=== PATIENT | female | born 1985 | race African-American/Black ===

== ENCOUNTER 2016-09-04 05:34 | Emergency (ER) | payer SELFPAY ==
[2016-09-04] MEDS ORDERED: ACETAMINOPHEN 325 MG TABLET PO ONE (05:42)
[2016-09-04 05:53] VITALS: BP 133/104
--- NOTE | 2016-09-04 05:54 | ER Document Report ---
ED General - General Chief Complaint: Blood Pressure Problem Stated Complaint: BLOOD PRESSURE PROBLEMS Mode of Arrival: Medic Information source: Patient Notes: 30-year-old female history of anxiety hypertension ADHD presents with concerns for headache this been ongoing for 2 days, decreased appetite and high blood pressure. Patient notes she's not been taking her medications for a couple days , states she is unsure if her lisinopril is the right medication since she had to put in a different bottle because she was banned from [employer] Patient notes that even though she has not had much of an appetite she would like to eat the food that was provided to her TRAVEL OUTSIDE OF THE [place] IN LAST 30 DAYS: No - HPI Onset: Other - 2 day duration Onset/Duration: Persistent Quality of pain: No pain Severity: Mild Pain Level: 1 Associated symptoms: Headache Exacerbated by: Denies Relieved by: Denies Similar symptoms previously: Yes Recently seen / treated by doctor: Yes - Related Data Allergies/Adverse Reactions: ketorolac tromethamine [From Toradol] Allergy (Verified 06/17/16 21:40) meperidine HCl [From Demerol] Allergy (Verified 06/17/16 21:40) metoclopramide HCl [From Reglan] Allergy (Verified 06/17/16 21:40) morphine [Morphine] Allergy (Verified 06/17/16 21:40) tramadol [Tramadol] Allergy (Verified 06/17/16 21:40) Hives ondansetron HCl [From Zofran] Adverse Reaction (Verified 06/17/16 21:40) VOMITING Past Medical History - Social History Smoking Status: Current Some Day Smoker Cigarette use (# per day): Yes Chew tobacco use (# tins/day): No Smoking Education Provided: No Family History: Reviewed & Not Pertinent - Past Medical History Cardiac Medical History: Reports: Hx Hypertension Renal/ Medical History: Denies: Hx Peritoneal Dialysis Psychiatric Medical History: Reports: Hx Anxiety, Hx Attention Deficit Hyperactivity Disorder, Hx Post Traumatic Stress Disorder Past Surgical History: Reports: Hx Abdominal Surgery - LAPROSCOPY, Hx Gynecologic Surgery - d&c, lap - Immunizations Immunizations up to date: Yes Hx Diphtheria, Pertussis, Tetanus Vaccination: Yes - 2010 Review of Systems - Review of Systems Notes: REVIEW OF SYSTEMS: CONSTITUTIONAL : Denies fever, chills, or sweats. Denies recent illness. Admits to decreased appetite EENT: Denies eye, ear, throat, or mouth pain or symptoms. Denies nasal or sinus congestion or discharge. Denies throat, tongue, or mouth swelling or difficulty swallowing. CARDIOVASCULAR: Denies chest pain. Denies palpitations or racing or irregular heart beat. Denies ankle edema. RESPIRATORY: Denies cough, cold, or chest congestion. Denies shortness of breath, difficulty breathing, or wheezing. GASTROINTESTINAL: Denies abdominal pain or distention. Denies nausea, vomiting , or diarrhea. Denies blood in vomitus, stools, or per rectum. Denies black, tarry stools. Denies constipation. GENITOURINARY: Denies difficulty urinating, painful urination, burning, frequency, blood in urine, or discharge. FEMALE GENITOURINARY: Denies vaginal bleeding, heavy or abnormal periods, irregular periods. Denies vaginal discharge or odor. MUSCULOSKELETAL: Denies back or neck pain or stiffness. Denies joint pain or swelling. SKIN: Denies rash, lesions or sores. HEMATOLOGIC : Denies easy bruising or bleeding. LYMPHATIC: Denies swollen, enlarged glands. NEUROLOGICAL: Admits headache PSYCHIATRIC: Admits to anxiety denies any suicidal homicidal ideations ALL OTHER SYSTEMS REVIEWED AND NEGATIVE. Dictation was performed using [employer] voice recognition software PHYSICAL EXAMINATION: GENERAL: Well-appearing, well-nourished and in no acute distress. HEAD: Atraumatic, normocephalic. EYES: Pupils equal round and reactive to light, extraocular movements intact, conjunctiva are normal. ENT: Nares patent, oropharynx clear without exudates. Moist mucous membranes. NECK: Normal range of motion, supple without lymphadenopathy LUNGS: Breath sounds clear to auscultation bilaterally and equal. No wheezes rales or rhonchi. HEART: Regular rate and rhythm without murmurs ABDOMEN: Soft, nontender, nondistended abdomen. No guarding, no rebound. No masses appreciated. Female : deferred Musculoskeletal: Normal range of motion, no pitting or edema. No cyanosis. NEUROLOGICAL: Cranial nerves grossly intact. Normal speech, normal gait. Normal sensory, motor exams finger to nose [id number] are normal PSYCH: Patient appears anxious but easily consolable SKIN: Warm, Dry, normal turgor, no rashes or lesions noted. Course - Re-evaluation Re-evalutation: 09/04/16 05:52 Neurological examination notes no significant abnormality, patient was given Tylenol which she is very appreciative of. Patient was given fluids which she is very appreciative of. I checked all her medications and in fact her lisinopril 40 mg tablets are in a clonazepam bottle. I have re labeled her medication Otherwise patient appears to be stable. I spent time consoling the patient I will allow the patient to take her lisinopril and cleansed and expect discharge shortly After performing a Medical Screening Examination, I estimate there is LOW risk for ACUTE CORONARY SYNDROME, RESPIRATORY FAILURE, SEPSIS OR MENINGITIS, thus I consider the discharge disposition reasonable. The patient and I have discussed the diagnosis and risks, and we agree with discharging home with close follow- up. We also discussed returning to the Emergency Department immediately if new or worsening symptoms occur. We have discussed the symptoms which are most concerning (e.g., changing or worsening pain, trouble swallowing or breathing, neck stiffness, fever) that necessitate immediate return. Discharge - Discharge Clinical Impression: Headache Qualifiers: Headache type: unspecified Headache chronicity pattern: acute headache Intractability: not intractable Qualified Code(s): R51 - Headache HTN (hypertension) Qualifiers: Hypertension type: essential hypertension Qualified Code(s): I10 - Essential ( primary) hypertension Condition: Stable Disposition: HOME, SELF-CARE Instructions: High Blood Pressure ([facility]) Additional Instructions: Please follow-up with your primary care physician for reevaluation or return immediately if there are any other concerns
== END 2016-09-04 06:12 | disposition home or self-care (01) ==
LOC: ER 05:34
DX: R51 Headache (principal); I10 Essential (primary) hypertension; F17.210 Nicotine dependence, cigarettes, uncomplicated
CPT/HCPCS: 99283

== ENCOUNTER 2016-09-08 22:33 | Emergency (ER) | payer SELFPAY ==
[2016-09-08 22:57] VITALS: BP 136/97
[2016-09-09] MEDS ORDERED: DOCUSATE SODIUM 100 MG CAPSULE PO ONE (01:15)
[2016-09-09] MEDS ORDERED: CLONAZEPAM 1 MG TABLET PO ONE (01:15)
--- NOTE | 2016-09-09 01:25 | ER Document Report ---
ED General - General Chief Complaint: High Blood Pressure Stated Complaint: POSSIBLE BLOOD PRESSURE ISSUES Mode of Arrival: Ambulatory Information source: Patient Notes: Pt is a 30-year-old female with a history of anxiety and hypertension who presents to the ER today for refills on her Klonopin. Patient states that she takes 2 mg as needed for anxiety. She states that she stopped taking her lisinopril because it was making her blood pressure go up. She denies chest pain, headache, blurred vision. She also admits to dysuria. TRAVEL OUTSIDE OF THE [place] IN LAST 30 DAYS: No - Related Data Allergies/Adverse Reactions: ketorolac tromethamine [From Toradol] Allergy (Verified 06/17/16 21:40) meperidine HCl [From Demerol] Allergy (Verified 06/17/16 21:40) metoclopramide HCl [From Reglan] Allergy (Verified 06/17/16 21:40) morphine [Morphine] Allergy (Verified 06/17/16 21:40) tramadol [Tramadol] Allergy (Verified 06/17/16 21:40) Hives ondansetron HCl [From Zofran] Adverse Reaction (Verified 06/17/16 21:40) VOMITING Past Medical History - General Information source: Patient - Social History Smoking Status: Current Every Day Smoker Chew tobacco use (# tins/day): No Frequency of alcohol use: None Drug Abuse: None Family History: Reviewed & Not Pertinent Patient has suicidal ideation: No Patient has homicidal ideation: No - Past Medical History Cardiac Medical History: Reports: Hx Hypertension Renal/ Medical History: Denies: Hx Peritoneal Dialysis Psychiatric Medical History: Reports: Hx Anxiety, Hx Attention Deficit Hyperactivity Disorder, Hx Post Traumatic Stress Disorder Past Surgical History: Reports: Hx Abdominal Surgery - LAPROSCOPY, Hx Gynecologic Surgery - d&c, lap - Immunizations Immunizations up to date: Yes Hx Diphtheria, Pertussis, Tetanus Vaccination: Yes - 2010 Review of Systems - Review of Systems Constitutional: No symptoms reported EENT: No symptoms reported Cardiovascular: See HPI Respiratory: No symptoms reported Gastrointestinal: No symptoms reported Genitourinary: No symptoms reported Female Genitourinary: No symptoms reported Musculoskeletal: No symptoms reported Skin: No symptoms reported Hematologic/Lymphatic: No symptoms reported Neurological/Psychological: See HPI Physical Exam - Vital signs Vitals: Temp Pulse Resp BP Pulse Ox 97.4 F 88 18 136/97 H 95 09/08/16 22:48 09/08/16 22:48 09/08/16 22:48 09/08/16 22:48 09/08/16 22:48 - Notes Notes: PHYSICAL EXAMINATION: GENERAL:anxious, in no acute distress. HEAD: Atraumatic, normocephalic. EYES: Pupils equal round and reactive to light, extraocular movements intact, sclera anicteric, conjunctiva are normal. NECK: Normal range of motion, supple without lymphadenopathy LUNGS: CTAB and equal. No wheezes rales or rhonchi. HEART: Regular rate and rhythm without murmurs ABDOMEN: Soft, no tenderness. No guarding, no rebound BACK: no vertebral tenderness, normal ROM GI/: no CVA tenderness EXTREMITIES: Normal range of motion, no pitting edema. No cyanosis. NEUROLOGICAL: Cranial nerves grossly intact. Normal sensory/motor exams. PSYCH: anxious SKIN: Warm, Dry, normal turgor, no rashes or lesions noted Course - Re-evaluation Re-evalutation: 09/09/16 01:27 pt admits to being "fearful" but denies any suicidal or homicidal ideations. 09/09/16 01:53 Patient continues to ask for things, is quite anxious. She is asked for something for constipation, Benadryl for her dry mouth and multiple other things while here in the emergency department. I told her that this is her anxiety and she needs to calm down and let the medication do its job. 09/09/16 01:58 Patient does actually have large leukocytes on urinalysis. I do not believe that she will actually follow up with a primary care provider or get her medication for her UTI filled, so I have ordered Rocephin one time IM injection here along with one dose of azithromycin because she now complains of more vaginal discharge over the past week but will not allow me to do a pelvic exam as she is too anxious. She denies that it has any odor to it, she denies rash. - Vital Signs Vital signs: Temp Pulse Resp BP Pulse Ox 97.4 F 88 18 136/97 H 95 09/08/16 22:48 09/08/16 22:48 09/08/16 22:48 09/08/16 22:48 09/08/16 22:48 - Laboratory Laboratory results interpreted by me: 09/09/16 01:25 Urine Urobilinogen 2.0 H Ur Leukocyte Esterase LARGE H Discharge - Discharge Clinical Impression: Anxiety Urinary tract infection Qualifiers: Urinary tract infection type: site unspecified Hematuria presence: without hematuria Qualified Code(s): N39.0 - Urinary tract infection, site not specified Condition: Stable Disposition: HOME, SELF-CARE Instructions: Anxiety ([facility]) Additional Instructions: Return immediately for any new or worsening symptoms. Follow up with primary care provider, call tomorrow to make followup appointment. Prescriptions: Clonazepam [Klonopin 2 mg Tablet] 2 mg PO PRN PRN #7 tablet PRN Reason:
[2016-09-09] MEDS ORDERED: DIPHENHYDRAMINE HCL 25 MG CAPSULE PO ONE (01:33)
[2016-09-09 01:54] LABS: APPEARANCE,URINE SLIGHTLY-CLOUDY; BILIRUBIN,URINE NEGATIVE (NEGATIVE); GLUCOSE, URINE NEGATIVE (NEGATIVE); KETONES,URINE NEGATIVE (NEGATIVE); LEUKOCYTE ESTERASE,URINE LARGE (NEGATIVE); NITRITE,URINE NEGATIVE (NEGATIVE); PROTEIN,URINE NEGATIVE (NEGATIVE); URINE SPECIFIC GRAVITY 1.012
[2016-09-09] MEDS ORDERED: LIDOCAINE 1% INJ-PF (10 MG/ML) 30 ML SDV INFIL ONE (01:56)
[2016-09-09] MEDS ORDERED: AZITHROMYCIN 250 MG TABLET PO ONE (01:56)
[2016-09-09] MEDS ORDERED: CEFTRIAXONE INJ 1000 MG VIAL IM ONE (01:56)
== END 2016-09-09 02:45 | disposition home or self-care (01) ==
LOC: ER 22:33
DX: F41.9 Anxiety disorder, unspecified (principal); N39.0 Urinary tract infection, site not specified; I10 Essential (primary) hypertension; R30.0 Dysuria; Z88.8 Allergy status to other drugs, medicaments and biological substances; Z88.5 Allergy status to narcotic agent; F17.200 Nicotine dependence, unspecified, uncomplicated
CPT/HCPCS: 99283; 96372; 81001; J0696

== ENCOUNTER 2016-10-16 22:15 | Emergency (ER) | payer SELFPAY ==
[2016-10-16 23:02] LABS: ABSOLUTE EOSINOPHILS # (AUTO) 0.5 10^3/uL (0.0-0.6); ABSOLUTE LYMPHOCYTES (AUTO) 2.4 10^3/uL (0.5-4.7); ABSOLUTE MONOCYTES (AUTO) 0.5 10^3/uL (0.1-1.4); ABSOLUTE NEUT (AUTO) 1.9 10^3/uL (1.7-8.2); BASOPHILS % (AUTO) 0.5 % (0-2); EOSINOPHILS % (AUTO) 8.8 % (0-6); HEMATOCRIT 33.3 % (36.0-47.0); HGB HCT DIFFERENCE -0.3; MEAN CORPUSCULAR HGB CONC 32.9 g/dL (32.0-36.0); MEAN CORPUSCULAR VOLUME 85 fl (80-97); MONOCYTES % (AUTO) 9.6 % (3-13); RED BLOOD COUNT 3.92 10^6/uL (3.72-5.28); RED CELL DISTRIBUTION WIDTH 13.5 % (11.5-14.0); SEGMENTED NEUTROPHILS % (AUTO) 36.1 % (42-78); WHITE BLOOD COUNT 5.4 10^3/uL (4.0-10.5)
[2016-10-16 23:14] LABS: APPEARANCE,URINE SLIGHTLY-CLOUDY; BILIRUBIN,URINE NEGATIVE (NEGATIVE); GLUCOSE, URINE NEGATIVE (NEGATIVE); KETONES,URINE NEGATIVE (NEGATIVE); LEUKOCYTE ESTERASE,URINE NEGATIVE (NEGATIVE); NITRITE,URINE NEGATIVE (NEGATIVE); PROTEIN,URINE NEGATIVE (NEGATIVE); URINE SPECIFIC GRAVITY 1.021
[2016-10-16 23:21] LABS: ALANINE AMINOTRANSFERASE 37 U/L (9-52); ALBUMIN 4.9 g/dL (3.5-5.0); ALKALINE PHOSPHATASE 81 U/L (38-126); ANION GAP 14 (5-19); ASPARTATE AMINO TRANSFERASE 29 U/L (14-36); BILIRUBIN,TOTAL 0.7 mg/dL (0.2-1.3); BLOOD UREA NITROGEN 17 mg/dL (7-20); CALCIUM 10.3 mg/dL (8.4-10.2); CARBON DIOXIDE 24 mmol/L (22-30); CHLORIDE 107 mmol/L (98-107); CREATININE RESULT 0.91 mg/dL (0.52-1.25); GLUCOSE 100 mg/dL (75-110); POTASSIUM 4.1 mmol/L (3.6-5.0); SODIUM 145.2 mmol/L (137-145)
[2016-10-16 23:22] LABS: ALCOHOL < 10 mg/dL (NONE DETECTED)
[2016-10-16 23:30] LABS: URINE BARBITURATES SCREEN NEGATIVE; URINE METHADONE SCREEN NEGATIVE; URINE OPIATES LOW NEGATIVE; URINE PHENCYCLIDINE SCREEN NEGATIVE
[2016-10-17] MEDS ORDERED: LISINOPRIL 10 MG TABLET PO ONE (00:19)
[2016-10-17] MEDS ORDERED: CLONAZEPAM 1 MG TABLET PO ONE (00:19)
--- NOTE | 2016-10-17 00:25 | ER Document Report ---
ED Psych Disorder / Suicide - General Chief Complaint: Psych Problem Stated Complaint: PSYCH EVAL Time seen by provider: 00:19 Mode of Arrival: Ambulatory Information source: Patient TRAVEL OUTSIDE OF THE [place] IN LAST 30 DAYS: No - HPI Patient complains to provider of: Other - withdrawal symptoms Onset: This evening Onset was: Gradual Quality of pain: No pain Normal mood: Yes Associated symptoms: Normal affect, Normal mood Similar symptoms previously: Yes Recently seen / treated by doctor: Yes Notes: Patient is a 30-year-old female with history of mental illness, states she was recently incarcerated for 9 days and did not receive her medications will incarcerated which include Klonopin 2 mg twice a day and Adderall 20 mg 3 times a day, she also ran out of her lisinopril prior to being incarcerated, patient states she has an appointment for follow-up with [facility] on Tuesday where she can get prescriptions for her medications, and on appointment at the [facility] on Tuesday where she can get evaluated for her high blood pressure, she reports she is feeling difficulty focusing and would like to get a dose of her medications this evening and for tomorrow since until she can be seen at [facility] on Tuesday, she denies any suicidal or homicidal ideation, is currently staying with her father who accompanied her to the emergency room this evening - Related Data Allergies/Adverse Reactions: ketorolac tromethamine [From Toradol] Allergy (Verified 10/16/16 23:39) meperidine HCl [From Demerol] Allergy (Verified 10/16/16 23:39) metoclopramide HCl [From Reglan] Allergy (Verified 10/16/16 23:39) morphine [Morphine] Allergy (Verified 10/16/16 23:39) tramadol [Tramadol] Allergy (Verified 10/16/16 23:39) Hives ondansetron HCl [From Zofran] Adverse Reaction (Verified 10/16/16 23:39) VOMITING Home Medications: Current Home Medications Clonazepam [Clonazepam] 2 tab PO TID 10/16/16 [History] Dextroamphetamine/Amphetamine [Adderall 20 mg Tablet] 20 mg PO TID 10/16/16 [ History] Ferrous Sulfate [Iron] 1 cap PO QAM 10/16/16 [History] Past Medical History - General Information source: Patient - Social History Smoking Status: Current Some Day Smoker Chew tobacco use (# tins/day): No Frequency of alcohol use: None Drug Abuse: None Family History: Reviewed & Not Pertinent Patient has suicidal ideation: No Patient has homicidal ideation: No - Past Medical History Cardiac Medical History: Reports: Hx Hypertension Renal/ Medical History: Denies: Hx Peritoneal Dialysis Psychiatric Medical History: Reports: Hx Anxiety, Hx Attention Deficit Hyperactivity Disorder, Hx Post Traumatic Stress Disorder Past Surgical History: Reports: Hx Abdominal Surgery - LAPROSCOPY, Hx Gynecologic Surgery - d&c, lap - Immunizations Immunizations up to date: Yes Hx Diphtheria, Pertussis, Tetanus Vaccination: Yes - 2010 Review of Systems - Review of Systems Constitutional: No symptoms reported EENT: No symptoms reported Cardiovascular: No symptoms reported Respiratory: No symptoms reported Gastrointestinal: No symptoms reported Genitourinary: No symptoms reported Female Genitourinary: No symptoms reported Musculoskeletal: No symptoms reported Skin: No symptoms reported Hematologic/Lymphatic: No symptoms reported Neurological/Psychological: See HPI -: Yes All other systems reviewed and negative Physical Exam - Vital signs Vitals: Temp Pulse Resp BP Pulse Ox 98.4 F 104 H 18 135/90 H 100 10/16/16 22:22 10/16/16 22:22 10/16/16 22:22 10/16/16 22:22 10/16/16 22:22 Interpretation: Tachycardic - General General appearance: Appears well, Alert - HEENT Head: Normocephalic, Atraumatic Eyes: Normal Pupils: PERRL - Respiratory Respiratory status: No respiratory distress Chest status: Nontender Breath sounds: Normal Chest palpation: Normal - Cardiovascular Rhythm: Regular Heart sounds: Normal auscultation Murmur: No - Abdominal Inspection: Normal Distension: No distension Bowel sounds: Normal Tenderness: Nontender Organomegaly: No organomegaly - Back Back: Normal, Nontender - Extremities General upper extremity: Normal inspection, Nontender, Normal color, Normal ROM , Normal temperature General lower extremity: Normal inspection, Nontender, Normal color, Normal ROM , Normal temperature, Normal weight bearing. No: Yovani's sign - Neurological Neuro grossly intact: Yes Cognition: Normal Orientation: AAOx4 Ron Coma Scale Eye Opening: Spontaneous Ron Coma Scale Verbal: Oriented Ron Coma Scale Motor: Obeys Commands Ron Coma Scale Total: 15 Speech: Normal Motor strength normal: LUE, RUE, LLE, RLE Sensory: Normal - Psychological Associated symptoms: Normal affect, Normal mood - Skin Skin Temperature: Warm Skin Moisture: Dry Skin Color: Normal Course - Re-evaluation Re-evalutation: 10/17/16 00:22 Patient resting comfortably, calm, cooperative, no signs of any distress, laboratory evaluation relatively normal, she was given a prescription for 5 doses of Adderall in a month supply of lisinopril, advised to follow-up with her primary care provider and mental health professional as scheduled this week , or return if symptoms worsen, patient and father at bedside acknowledge understanding and agreement with this plan - Vital Signs Vital signs: Temp Pulse Resp BP Pulse Ox 98.4 F 104 H 18 135/90 H 100 10/16/16 22:22 10/16/16 22:22 10/16/16 22:22 10/16/16 22:22 10/16/16 22:22 - Laboratory Result Diagrams: 10/16/16 22:40 10/16/16 22:40 Laboratory results interpreted by me: 10/16/16 10/16/16 10/16/16 22:40 22:40 22:45 Hgb 11.0 L Hct 33.3 L Seg Neutrophils % 36.1 L Eosinophils % 8.8 H Sodium 145.2 H Calcium 10.3 H Urine Urobilinogen 2.0 H Urine Ascorbic Acid 20 H Salicylates < 1.0 L Acetaminophen < 10 L Discharge - Discharge Clinical Impression: Medication refill Hypertension Qualifiers: Hypertension type: essential hypertension Qualified Code(s): I10 - Essential ( primary) hypertension Condition: Stable Disposition: HOME, SELF-CARE Additional Instructions: Follow up with your mental health professional and primary care provider in one to 2 days. Return to the emergency room immediately if symptoms worsen or any additional concerns. Prescriptions: Dextroamphetamine/Amphetamine [Adderall 20 mg Tablet] 1 tab PO TID #5 tablet Lisinopril 40 mg PO DAILY #30 tablet
[2016-10-17 00:47] VITALS: BP 127/90
--- NOTE | 2016-10-17 17:41 | EKG REPORT ---
SEVERITY:- BORDERLINE ECG - SINUS RHYTHM BORDERLINE T ABNORMALITIES, ANT-LAT LEADS : Confirmed by: Naty Ragsdale MD 17-Oct-2016 17:40:22
== END 2016-10-17 00:47 | disposition home or self-care (01) ==
LOC: ER 22:15
DX: I10 Essential (primary) hypertension (principal); F99 Mental disorder, not otherwise specified; F17.200 Nicotine dependence, unspecified, uncomplicated; Z88.6 Allergy status to analgesic agent
CPT/HCPCS: 36415; 80053; 80307; 81001; 85025; 93005; 93010; 99284

== ENCOUNTER 2016-11-04 22:36 | Emergency (ER) | payer SELFPAY ==
[2016-11-04 23:38] LABS: APPEARANCE,URINE SLIGHTLY-CLOUDY; BILIRUBIN,URINE NEGATIVE (NEGATIVE); GLUCOSE, URINE NEGATIVE (NEGATIVE); KETONES,URINE NEGATIVE (NEGATIVE); LEUKOCYTE ESTERASE,URINE TRACE (NEGATIVE); NITRITE,URINE NEGATIVE (NEGATIVE); PROTEIN,URINE NEGATIVE (NEGATIVE); URINE SPECIFIC GRAVITY 1.032
[2016-11-04 23:47] LABS: URINE BARBITURATES SCREEN NEGATIVE; URINE METHADONE SCREEN NEGATIVE; URINE OPIATES LOW NEGATIVE; URINE PHENCYCLIDINE SCREEN NEGATIVE
--- NOTE | 2016-11-05 01:28 | ER Document Report ---
ED Psych Disorder / Suicide - General Mode of Arrival: Ambulatory Information source: Patient TRAVEL OUTSIDE OF THE [place] IN LAST 30 DAYS: No - HPI Patient complains to provider of: Other - anxiety Onset: Just prior to arrival - General Chief Complaint: Anxiety Stated Complaint: PSYCH EVAL Notes: Patient is a 31-year-old female that presents to the emergency department today with complaints of an anxiety attack. Patient states "she has a lot of things going on, she is working 2 jobs and going to school, with multiple children at home". Patient denies any suicidal or homicidal ideation. Patient states she just feels overwhelmed. Patient also adds that she has mouth pain, reporting blisters on her lips for 2 days. Patient states she has a slight headache and intermittent nausea as well. Patient states she is on clonadine to help with her anxiety but "something happened with the prescription" so she has not had it over the last few days. Patient denies any fevers, cough, chest pain, or homicidal/suicidal ideation. (KIMBER JUNIOR) - Related Data Allergies/Adverse Reactions: ketorolac tromethamine [From Toradol] Allergy (Verified 10/16/16 23:39) meperidine HCl [From Demerol] Allergy (Verified 10/16/16 23:39) metoclopramide HCl [From Reglan] Allergy (Verified 10/16/16 23:39) morphine [Morphine] Allergy (Verified 10/16/16 23:39) tramadol [Tramadol] Allergy (Verified 10/16/16 23:39) Hives ondansetron HCl [From Zofran] Adverse Reaction (Verified 10/16/16 23:39) VOMITING Past Medical History - General Information source: Patient - Social History Smoking Status: Never Smoker Cigarette use (# per day): No Chew tobacco use (# tins/day): No Frequency of alcohol use: None Drug Abuse: None Lives with: Family Family History: Reviewed & Not Pertinent Patient has suicidal ideation: No Patient has homicidal ideation: No - Past Medical History Cardiac Medical History: Reports: Hx Hypertension Psychiatric Medical History: Reports: Hx Anxiety, Hx Attention Deficit Hyperactivity Disorder, Hx Post Traumatic Stress Disorder Past Surgical History: Reports: Hx Abdominal Surgery - LAPROSCOPY, Hx Gynecologic Surgery - d&c, lap - Immunizations Immunizations up to date: Yes Hx Diphtheria, Pertussis, Tetanus Vaccination: Yes - 2010 Review of Systems - Review of Systems Constitutional: denies: Fever EENT: No symptoms reported Cardiovascular: denies: Chest pain Respiratory: denies: Cough Gastrointestinal: See HPI, Nausea Genitourinary: No symptoms reported Female Genitourinary: No symptoms reported Musculoskeletal: No symptoms reported Skin: See HPI, Other - lip pain Hematologic/Lymphatic: No symptoms reported Neurological/Psychological: See HPI, Anxiety, Headaches. denies: Homicidal ideation, Suicidal ideation Physical Exam - General General appearance: Appears well, Alert In distress: None - HEENT Head: Normocephalic, Atraumatic Eyes: Normal Conjunctiva: Normal Extraocular movements intact: Yes - Respiratory Respiratory status: No respiratory distress Chest status: Nontender Breath sounds: Normal - Cardiovascular Rhythm: Regular Heart sounds: Normal auscultation Murmur: No - Abdominal Inspection: Normal Distension: No distension Bowel sounds: Normal Tenderness: Nontender - Extremities General upper extremity: Normal inspection, Normal ROM. No: Edema General lower extremity: Normal inspection, Normal ROM. No: Edema - Neurological Neuro grossly intact: Yes Cognition: Normal Orientation: AAOx4 Speech: Normal - Psychological Associated symptoms: Normal affect, Normal mood, Other - denies homicidal or suicidal ideations - Skin Skin Temperature: Warm Skin Moisture: Dry Skin Color: Normal - Vital signs Vitals: Resp 14 11/05/16 00:31 - HEENT Notes: Herpetic lesions to upper lip (KIMBER JUNIOR) Course - Re-evaluation Re-evalutation: 11/05/16 02:15 Patient presents stating that she has problems with anxiety and had a panic reaction tonight. She says she is a lot of stress and puts a lot on herself. She indicates that somehow she is between psychiatrists right now and her medications will get sorted out in the next 24-48 hours but that she needs some Clonazapam or Ativan to tie her over. The patient is also complaining of an outbreak of sores on her face for the last 3 days. She says that it hurts so much to open her mouth. The patient is completely calm here. She is not suicidal or homicidal. Vital signs stable. Patient is not in any distress. I explained her that I would not be writing for any benzodiazepines. I would however give her some Vistaril. I will also treat the herpes simplex outbreak on her mouth. 11/05/16 02:18 (DELROY AUSTIN) - Vital Signs Vital signs: Temp Pulse Resp BP Pulse Ox 98.1 F 73 16 145/101 H 100 11/05/16 00:37 11/05/16 00:37 11/05/16 00:37 11/05/16 00:37 11/05/16 00:37 - Laboratory Laboratory results interpreted by me: 11/04/16 23:10 Urine Urobilinogen 2.0 H Ur Leukocyte Esterase TRACE H Urine Ascorbic Acid 20 H - EKG Interpretation by Me Additional EKG results interpreted by me: 11/05/16 02:26 Heart rate 85, normal sinus rhythm, normal axis, normal intervals, no ST elevations, as interpreted by me. Compared with EKG of 10/17/16, no significant change. (DELROY AUSTIN) Discharge - Discharge Clinical Impression: Anxiety, Herpes simplex Condition: Stable Disposition: HOME, SELF-CARE Instructions: Anxiety ([facility]) Additional Instructions: Drink plenty fluids to stay well hydrated. Use Vistaril as needed for anxiety. You have been prescribed an antiviral for first outbreak of herpes simplex. Return to emergency department for any worsening or concerning symptoms. Herpes Simplex You have been diagnosed as having a herpes virus infection. The herpes ( "cold sore") virus usually infects the areas around the mouth. However, it can cause infection on any skin surface. It's particularly dangerous if infection occurs in the eye. On the initial infection, herpes blisters erupt over a large area. There is usually fever and aching. This infection takes about 14 days to resolve. After the initial infection, herpes sores can erupt on small areas (usually the lips), then heal in about a week. Sunburn, fever, local irritation, or even emotions can provoke a "fever blister" attack of herpes. Initial herpes infections can be treated with medication if severe. Subsequent attacks are usually given only local care to reduce symptoms; however , the physician may decide to prescribe anti-viral medication if your case warrants it. Call the doctor if you are worsening in any way. Prescriptions: Acyclovir [Acyclovir 400 mg Tablet] 400 mg PO TID #21 tablet Hydroxyzine Pamoate [Vistaril 25 mg Capsule] 25 mg PO Q8H PRN #30 capsule PRN Reason: Anxiety Scribe Documentation - Scribe Written by Scribe:: Nicole Jose, 11/05/2016 0135 acting as scribe for :: Srivastava
[2016-11-05] MEDS ORDERED: ACYCLOVIR 800 MG TABLET PO ONE (01:30)
[2016-11-05] MEDS ORDERED: ACYCLOVIR 800 MG TABLET ONE (02:04)
[2016-11-05] MEDS ORDERED: HYDROXYZINE PAMOATE 25 MG CAPSULE PO ONE (02:17)
[2016-11-05 02:42] VITALS: BP 136/84
--- NOTE | 2016-11-05 05:37 | EKG REPORT ---
SEVERITY:- NORMAL ECG - SINUS RHYTHM : Confirmed by: Naty Ragsdale MD 05-Nov-2016 05:36:34
== END 2016-11-05 02:25 | disposition home or self-care (01) ==
LOC: ER 22:36
DX: F41.9 Anxiety disorder, unspecified (principal); B00.1 Herpesviral vesicular dermatitis; R51 Headache; R11.0 Nausea; I10 Essential (primary) hypertension; F43.10 Post-traumatic stress disorder, unspecified; Z88.6 Allergy status to analgesic agent
CPT/HCPCS: 93005; 99283; 81001; 80307; 93010; J3490

== ENCOUNTER 2016-11-07 21:29 | Emergency (ER) | payer SELFPAY ==
--- NOTE | 2016-11-07 21:35 | ER Document Report ---
ED Medical Screen (RME) - General Stated Complaint: ANXIETY Notes: Patient is a 31-year-old female who was recently discharged from our facility today with anxiety on visteril but she states it makes her anxiety worse., Denies SI, HI. alert and oriented x4. I have greeted and performed a rapid initial assessment of this patient. A comprehensive ED assessment and evaluation of the patient, analysis of test results and completion of the medical decision making process will be conducted by additional ED providers. TRAVEL OUTSIDE OF THE [place] IN LAST 30 DAYS: No - Related Data Allergies/Adverse Reactions: ketorolac tromethamine [From Toradol] Allergy (Verified 11/07/16 21:56) meperidine HCl [From Demerol] Allergy (Verified 11/07/16 21:56) metoclopramide HCl [From Reglan] Allergy (Verified 11/07/16 21:56) morphine [Morphine] Allergy (Verified 11/07/16 21:56) tramadol [Tramadol] Allergy (Verified 11/07/16 21:56) Hives ondansetron HCl [From Zofran] Adverse Reaction (Verified 11/07/16 21:56) VOMITING Past Medical History - Past Medical History Cardiac Medical History: Reports: Hx Hypertension Renal/ Medical History: Denies: Hx Peritoneal Dialysis Psychiatric Medical History: Reports: Hx Anxiety, Hx Attention Deficit Hyperactivity Disorder, Hx Post Traumatic Stress Disorder Past Surgical History: Reports: Hx Abdominal Surgery - LAPROSCOPY, Hx Gynecologic Surgery - d&c, lap - Immunizations Immunizations up to date: Yes Hx Diphtheria, Pertussis, Tetanus Vaccination: Yes - 2010 Physical Exam - Vital signs Vitals: Temp Pulse Resp BP Pulse Ox 98.9 F 114 H 16 134/99 H 100 11/07/16 21:47 11/07/16 21:47 11/07/16 21:47 11/07/16 21:47 11/07/16 21:47 Course - Vital Signs Vital signs: Temp Pulse Resp BP Pulse Ox 98.9 F 114 H 16 134/99 H 100 11/07/16 21:47 11/07/16 21:47 11/07/16 21:47 11/07/16 21:47 11/07/16 21:47
--- NOTE | 2016-11-08 00:29 | ER Document Report ---
HPI - HPI Patient complains to provider of: anxiety Onset: Other Onset/Duration: Gradual - 3 days Pain Level: Denies Context: 31-year-old female is complaining of severe anxiety and crying. She no longer has her Klonopin. Her medications got messed up at [facility]. She states she is able to see them tomorrow. No suicidal or homicidal ideation. Associated Symptoms: None Exacerbated by: Denies Relieved by: Other - Klonopin Similar symptoms previously: No Recently seen / treated by doctor: No - ROS ROS below otherwise negative: Yes Systems Reviewed and Negative: Yes All other systems reviewed and negative - REPRODUCTIVE Reproductive: DENIES: : - DERM Skin Color: Normal, Winfred Past Medical History - General Information source: Patient - Social History Smoking Status: Current Every Day Smoker Chew tobacco use (# tins/day): No Frequency of alcohol use: None Drug Abuse: None Lives with: Family Family History: Reviewed & Not Pertinent Patient has suicidal ideation: No Patient has homicidal ideation: No - Past Medical History Cardiac Medical History: Reports: Hx Hypertension Renal/ Medical History: Denies: Hx Peritoneal Dialysis Psychiatric Medical History: Reports: Hx Anxiety, Hx Attention Deficit Hyperactivity Disorder, Hx Post Traumatic Stress Disorder Past Surgical History: Reports: Hx Abdominal Surgery - LAPROSCOPY, Hx Gynecologic Surgery - d&c, lap - Immunizations Immunizations up to date: Yes Hx Diphtheria, Pertussis, Tetanus Vaccination: Yes - 2010 Vertical Provider Document - CONSTITUTIONAL Agree With Documented VS: Yes Exam Limitations: No Limitations - INFECTION CONTROL TRAVEL OUTSIDE OF THE [place] IN LAST 30 DAYS: No - HEENT HEENT: Atraumatic, Normocephalic, PERRLA - NECK Neck: Supple - RESPIRATORY Respiratory: Breath Sounds Normal, No Respiratory Distress O2 Sat by Pulse Oximetry: 100 - CARDIOVASCULAR Cardiovascular: Regular Rate, Regular Rhythm - GI/ABDOMEN Gastrointestinal: Abdomen Soft, Abdomen Non-Tender, No Organomegaly - MUSCULOSKELETAL/EXTREMETIES Musculoskeletal/Extremeties: ANN MARIE COBOS - NEURO Level of Consciousness: Awake, Alert, Agitated Motor/Sensory: No Motor Deficit, No Sensory Deficit - DERM Integumentary: Warm, Dry, No Rash Course - Vital Signs Vital signs: Temp Pulse Resp BP Pulse Ox 98.9 F 114 H 16 134/99 H 100 11/07/16 21:47 11/07/16 21:47 11/07/16 21:47 11/07/16 21:47 11/07/16 21:47 Discharge - Discharge Clinical Impression: anxiety Condition: Good Disposition: HOME, SELF-CARE Instructions: Anxiety ([facility]) Additional Instructions: see Josafat in the morning for your prescriptions Return to the emergency room any concerns Stop the hydroxyzine since it makes it feel worse Please complete the patient satisfaction survey if you get one, and return it.. If you do not receive a survey, then you can go to the [facility] website, [email or web address] and place your comments about your very good care. Thank you very much. It was a pleasure being your medical provider today.
[2016-11-08] MEDS ORDERED: CLONAZEPAM 1 MG TABLET PO ONE (00:40)
[2016-11-08 01:16] VITALS: BP 122/82
== END 2016-11-08 01:17 | disposition home or self-care (01) ==
LOC: ER 21:29
DX: F41.9 Anxiety disorder, unspecified (principal); F17.200 Nicotine dependence, unspecified, uncomplicated; I10 Essential (primary) hypertension
CPT/HCPCS: 99283

== ENCOUNTER 2016-11-23 00:13 | Emergency (ER) | payer SELFPAY ==
[2016-11-23 00:20] VITALS: BP 143/94
== END 2016-11-23 02:33 | disposition left against medical advice (07) ==
LOC: ER 00:13
DX: Z53.9 Procedure and treatment not carried out, unspecified reason (principal); T78.40XA Allergy, unspecified, initial encounter

== ENCOUNTER 2016-12-07 00:55 | Emergency (ER) | payer SELFPAY ==
[2016-12-07] MEDS ORDERED: CEPHALEXIN 500 MG CAPSULE PO ONE (03:11)
[2016-12-07] MEDS ORDERED: PROMETHAZINE HCL 25 MG TABLET PO ONE (03:11)
[2016-12-07] MEDS ORDERED: IBUPROFEN 600 MG TABLET PO ONE (03:11)
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
[2016-12-07 05:08] VITALS: BP 103/67
== END 2016-12-07 05:06 | disposition home or self-care (01) ==
LOC: ER 00:55
DX: S90.811A Abrasion, right foot, initial encounter (principal); S80.811A Abrasion, right lower leg, initial encounter; L03.116 Cellulitis of left lower limb; V19.9XXA Pedal cyclist (driver) (passenger) injured in unspecified traffic accident, initial encounter; Y93.55 Activity, bike riding; M79.671 Pain in right foot; M79.661 Pain in right lower leg; I10 Essential (primary) hypertension; Z88.8 Allergy status to other drugs, medicaments and biological substances; Z88.5 Allergy status to narcotic agent
CPT/HCPCS: 99283

== ENCOUNTER 2016-12-14 22:52 | Emergency (ER) | payer SELFPAY ==
[2016-12-14 23:08] VITALS: BP 142/100
--- NOTE | 2016-12-15 03:15 | ER Document Report ---
ED Headache - General Chief Complaint: Blood Pressure Problem Stated Complaint: HEADACHE Notes: The patient is a 31-year-old female, past medical history hypertension, ADHD, anxiety, PTSD, presents with her usual frontal headache and requesting her lisinopril and Adderall to be refilled. She is also having mild nausea. Her primary care physician refilled these medications yesterday and they will be ready in 2 days. She took Tylenol and Motrin with some relief of her headache. She denies head injury, fevers, neck stiffness, blurry vision, numbness, tingling, ataxia, chest pain or shortness of breath. TRAVEL OUTSIDE OF THE [place] IN LAST 30 DAYS: No - Related Data Allergies/Adverse Reactions: ketorolac tromethamine [From Toradol] Allergy (Verified 11/07/16 21:56) meperidine HCl [From Demerol] Allergy (Verified 11/07/16 21:56) metoclopramide HCl [From Reglan] Allergy (Verified 11/07/16 21:56) morphine [Morphine] Allergy (Verified 11/07/16 21:56) tramadol [Tramadol] Allergy (Verified 11/07/16 21:56) Hives ondansetron HCl [From Zofran] Adverse Reaction (Verified 11/07/16 21:56) VOMITING Past Medical History - General Information source: Patient - Social History Smoking Status: Current Every Day Smoker Family History: Reviewed & Not Pertinent Patient has suicidal ideation: No Patient has homicidal ideation: No - Past Medical History Cardiac Medical History: Reports: Hx Hypertension Renal/ Medical History: Denies: Hx Peritoneal Dialysis Psychiatric Medical History: Reports: Hx Anxiety, Hx Attention Deficit Hyperactivity Disorder, Hx Post Traumatic Stress Disorder Past Surgical History: Reports: Hx Abdominal Surgery - LAPROSCOPY, Hx Gynecologic Surgery - d&c, lap - Immunizations Immunizations up to date: Yes Hx Diphtheria, Pertussis, Tetanus Vaccination: Yes - 2010 Review of Systems - Review of Systems Notes: REVIEW OF SYSTEMS: CONSTITUTIONAL: -fevers, -chills EENT: -eye pain, -difficulty swallowing, -nasal congestion CARDIOVASCULAR:-chest pain, -syncope. RESPIRATORY: -cough, -SOB GASTROINTESTINAL: -abdominal pain, +nausea, -vomiting, -diarrhea GENITOURINARY: -dysuria, -hematuria MUSCULOSKELETAL: -back pain, -neck pain SKIN: -rash or skin lesions. HEMATOLOGIC: -easy bruising or bleeding. LYMPHATIC: -swollen, enlarged glands. NEUROLOGICAL: -altered mental status or loss of consciousness, +headache, - neurologic symptoms PSYCHIATRIC: -anxiety, -depression. ALL OTHER SYSTEMS REVIEWED AND NEGATIVE. Physical Exam - Vital signs Vitals: Temp Pulse Resp BP Pulse Ox 98.2 F 103 H 16 142/100 H 100 12/14/16 23:05 12/14/16 23:05 12/14/16 23:05 12/14/16 23:05 12/14/16 23:05 - Notes Notes: PHYSICAL EXAMINATION: GENERAL: Well-appearing, well-nourished and in no acute distress. HEAD: Atraumatic, normocephalic. EYES: Pupils equal round and reactive to light, extraocular movements intact, sclera anicteric, conjunctiva are normal. ENT: nares patent, oropharynx clear without exudates. Moist mucous membranes. NECK: Normal range of motion, supple without lymphadenopathy LUNGS: Breath sounds clear to auscultation bilaterally and equal. No wheezes rales or rhonchi. HEART: Regular rate and rhythm without murmurs ABDOMEN: Soft, nontender, normoactive bowel sounds. No guarding, no rebound. No masses appreciated. EXTREMITIES: Normal range of motion, no pitting or edema. No cyanosis. NEUROLOGICAL: Cranial nerves grossly intact. Normal speech, normal gait. Normal sensory, motor, and reflex exams. PSYCH: Normal mood, normal affect. SKIN: Warm, Dry, normal turgor, no rashes or lesions noted. Course - Re-evaluation Re-evalutation: Patient with multiple vague complaints. Her headache is chronic in nature and does not appear to be SAH, ICH or meningitis at this time. Will provide patient with a dose of her lisinopril and Phenergan for nausea and instructed her to potato picker her medications that are in the pharmacy tomorrow. No signs of benzo withdrawal at this time. - Vital Signs Vital signs: Temp Pulse Resp BP Pulse Ox 98.2 F 103 H 16 142/100 H 100 12/14/16 23:05 12/14/16 23:05 12/14/16 23:05 12/14/16 23:05 12/14/16 23:05 Discharge - Discharge Clinical Impression: Encounter for medication refill Chronic headache Qualifiers: Headache type: unspecified Intractability: not intractable Qualified Code(s): R51 - Headache Condition: Good Disposition: HOME, SELF-CARE Additional Instructions: HEADACHE: The physician does not feel that the headache you are experiencing has a serious underlying cause. Most headaches are due to emotional stress, with resultant muscle tension (tension headache). Occasionally, headaches are secondary to changes in the blood vessels of the scalp (vascular headache and migraine headache). Sometimes, a headache is the first symptom of another developing illness, such as a viral infection. You have no evidence of stroke, bleeding, meningitis, or other serious cause of your headache. The treatment of headaches varies with the severity and cause of the pain. Not all headaches need pain shots. In fact, there is evidence that using narcotics for headaches may make them worse in the long run. The physician will determine the therapy that's in your best interest. If you develop a fever, if the headache is different from any you've previously experienced, or if the headache progressively worsens, then call your physician at once or go to the emergency room. FOLLOW-UP CARE: If you have been referred to a physician for follow-up care, call the physician s office for an appointment as you were instructed or within the next two days. If you experience worsening or a significant change in your symptoms, notify the physician immediately or return to the Emergency Department at any time for re-evaluation.
[2016-12-15] MEDS ORDERED: PROMETHAZINE HCL 25 MG TABLET PO ONE (03:37)
[2016-12-15] MEDS ORDERED: LISINOPRIL 10 MG TABLET PO ONE (03:37)
== END 2016-12-15 03:59 | disposition home or self-care (01) ==
LOC: ER 22:52
DX: Z76.0 Encounter for issue of repeat prescription (principal); I10 Essential (primary) hypertension; R51 Headache; F90.9 Attention-deficit hyperactivity disorder, unspecified type; R11.0 Nausea; Z88.8 Allergy status to other drugs, medicaments and biological substances; Z88.5 Allergy status to narcotic agent; F17.200 Nicotine dependence, unspecified, uncomplicated
CPT/HCPCS: 99283

== ENCOUNTER 2017-02-06 22:47 | Emergency (ER) | payer SELFPAY ==
[2017-02-07] MEDS ORDERED: PROMETHAZINE HCL INJ 25 MG/1 ML VIAL IM ONE (02:39)
[2017-02-07] MEDS ORDERED: DIPHENHYDRAMINE HCL 50 MG/ML VIAL IV ONE (02:39)
--- NOTE | 2017-02-07 02:40 | ER Document Report ---
ED General - General Chief Complaint: Abdominal Distention Stated Complaint: HEADACHE Time Seen by Provider: 02/07/17 02:29 Notes: Patient is a 31-year-old female that comes emergency department with different complaints. She states that she feels pain and swelling in her abdomen generally with nausea, symptoms started today, she states she also has a throbbing headache over the front of her head which is the typical area of her headaches. She also states she feels anxious and she is out of her Klonopin. Past medical history of ADHD, anxiety, PTSD, hypertension treated with lisinopril, she states she is also out of lisinopril. She denies fever, dysuria , vaginal discharge, flank pain. She had a slightly hard bowel movement earlier today. TRAVEL OUTSIDE OF THE [place] IN LAST 30 DAYS: No - Related Data Allergies/Adverse Reactions: ketorolac tromethamine [From Toradol] Allergy (Verified 02/07/17 04:06) meperidine HCl [From Demerol] Allergy (Verified 02/07/17 04:06) metoclopramide HCl [From Reglan] Allergy (Verified 02/07/17 04:06) morphine [Morphine] Allergy (Verified 02/07/17 04:06) tramadol [Tramadol] Allergy (Verified 02/07/17 04:06) Hives ondansetron HCl [From Zofran] Adverse Reaction (Verified 02/07/17 04:06) VOMITING Past Medical History - General Information source: Patient - Social History Smoking Status: Never Smoker Frequency of alcohol use: None Drug Abuse: None Lives with: Family Family History: Reviewed & Not Pertinent - Past Medical History Cardiac Medical History: Reports: Hx Hypertension Renal/ Medical History: Denies: Hx Peritoneal Dialysis Psychiatric Medical History: Reports: Hx Anxiety, Hx Attention Deficit Hyperactivity Disorder, Hx Post Traumatic Stress Disorder Past Surgical History: Reports: Hx Abdominal Surgery - LAPROSCOPY, Hx Gynecologic Surgery - d&c, lap - Immunizations Immunizations up to date: Yes Hx Diphtheria, Pertussis, Tetanus Vaccination: Yes - 2010 Review of Systems - Review of Systems Constitutional: No symptoms reported EENT: No symptoms reported Cardiovascular: No symptoms reported Respiratory: No symptoms reported Gastrointestinal: See HPI Genitourinary: No symptoms reported Female Genitourinary: No symptoms reported Musculoskeletal: No symptoms reported Skin: No symptoms reported Hematologic/Lymphatic: No symptoms reported Neurological/Psychological: See HPI Physical Exam - Vital signs Vitals: Temp Pulse Resp BP Pulse Ox 99.3 F 89 18 140/104 H 97 02/06/17 22:58 02/06/17 22:58 02/06/17 22:58 02/06/17 22:58 02/06/17 22:58 Interpretation: Normal - General General appearance: Anxious In distress: None - HEENT Head: Normocephalic, Atraumatic Eyes: Normal Conjunctiva: Normal Extraocular movements intact: Yes Eyelashes: Normal Pupils: PERRL Nasal: Normal Mouth/Lips: Normal Mucous membranes: Normal Pharynx: Normal Neck: Normal - Respiratory Respiratory status: No respiratory distress Chest status: Nontender Breath sounds: Normal. No: Decreased air movement, Wheezing Chest palpation: Normal - Cardiovascular Rhythm: Regular. No: Tachycardia Heart sounds: Normal auscultation, S1 appreciated, S2 appreciated Murmur: No - Abdominal Inspection: Normal Distension: No distension, Distended Tenderness: Tender - minimal and generalized lower abdominal tenderness Organomegaly: No organomegaly - Back Back: Normal, Nontender. No: Tender, CVA tenderness - Extremities General upper extremity: Normal inspection, Nontender, Normal color, Normal ROM , Normal temperature General lower extremity: Normal inspection, Nontender, Normal color, Normal ROM , Normal temperature, Normal weight bearing. No: Yovani's sign - Neurological Neuro grossly intact: Yes Cognition: Normal Orientation: AAOx4 [place] Coma Scale Eye Opening: Spontaneous [place] Coma Scale Verbal: Oriented Ron Coma Scale Motor: Obeys Commands [place] Coma Scale Total: 15 Speech: Normal Motor strength normal: LUE, RUE, LLE, RLE Sensory: Normal - Psychological Associated symptoms: Other - Patient is speaking rapidly, appears somewhat anxious, becomes almost tearful easily. No: Normal affect, Normal mood - Skin Skin Temperature: Warm Skin Moisture: Dry Skin Color: Normal Course - Re-evaluation Re-evalutation: Patient calm and relaxed on re-examination. She denies SI or HI. Patient treated with Phenergan, Benadryl, on reevaluation she states her headache did resolve. CBC, chemistry, urinalysis are unremarkable. Acute abdominal series shows retained stool but no obstruction, no other abnormalities. No ileus. Patient's abdomen is slightly bloated but there is very mild generalized nonspecific tenderness, not suggestive of acute abdomen. Patient with no additional complaints on my reevaluation. I discussed workup with patient and father, patient will be treated with Phenergan, stool softener , she also asks for Benadryl. Initially patient was agreeable with magnesium citrate, then refused and will be placed on Colace instead. Discussed follow- up and return precautions. Patient and father state understanding and agreement. - Vital Signs Vital signs: Temp Pulse Resp BP Pulse Ox 97.7 F 72 18 144/99 H 100 02/07/17 04:14 02/07/17 04:14 02/07/17 04:14 02/07/17 04:14 02/07/17 04:14 - Laboratory Result Diagrams: 02/07/17 03:11 02/07/17 03:11 Laboratory results interpreted by me: 02/07/17 02/07/17 02/07/17 02:14 03:11 03:11 Hgb 11.1 L Hct 35.5 L MCH 26.6 L MCHC 31.3 L RDW 15.2 H Sodium 146.1 H Total Protein 8.7 H Ur Leukocyte Esterase TRACE H Discharge - Discharge Clinical Impression: Abdominal pain Qualifiers: Abdominal location: generalized Qualified Code(s): R10.84 - Generalized abdominal pain Headache Qualifiers: Headache type: unspecified Headache chronicity pattern: acute headache Intractability: not intractable Qualified Code(s): R51 - Headache Condition: Stable Disposition: HOME, SELF-CARE Additional Instructions: Your workup does not show any concerning abnormality, but does show that you are your x-ray does not show obstruction constipated and need to have several bowel movements. Drinking the magnesium citrate given slowly. Take the Phenergan if needed for nausea. Use Benadryl along with this if needed. Follow -up with your provider for additional management and for refills of your prescriptions. Return to the emergency department for any concerning or worsening symptoms including vomiting, fever, etc. Prescriptions: Diphenhydramine HCl [Benadryl] 1 - 2 tab PO Q6 #30 capsule Docusate Sodium [Colace 100 mg Capsule] 100 mg PO DAILY #30 capsule Promethazine HCl [Phenergan 25 mg Tablet] 1 - 2 tab PO Q6H PRN #20 tablet PRN Reason: Forms: Elevated Blood Pressure
[2017-02-07 03:10] LABS: APPEARANCE,URINE CLEAR; BILIRUBIN,URINE NEGATIVE (NEGATIVE); GLUCOSE, URINE NEGATIVE (NEGATIVE); KETONES,URINE NEGATIVE (NEGATIVE); LEUKOCYTE ESTERASE,URINE TRACE (NEGATIVE); NITRITE,URINE NEGATIVE (NEGATIVE); PROTEIN,URINE NEGATIVE (NEGATIVE); URINE SPECIFIC GRAVITY 1.013; UROBILINOGEN,URINE NEGATIVE mg/dL (<2.0)
[2017-02-07] MEDS ORDERED: PROMETHAZINE HCL INJ 50 MG/1 ML VIAL ONE (03:23)
[2017-02-07 03:25] LABS: ABSOLUTE EOSINOPHILS # (AUTO) 0.3 10^3/uL (0.0-0.6); ABSOLUTE LYMPHOCYTES (AUTO) 2.7 10^3/uL (0.5-4.7); ABSOLUTE MONOCYTES (AUTO) 0.4 10^3/uL (0.1-1.4); ABSOLUTE NEUT (AUTO) 2.7 10^3/uL (1.7-8.2); BASOPHILS % (AUTO) 0.3 % (0-2); HEMATOCRIT 35.5 % (36.0-47.0); HEMOGLOBIN 11.1 g/dL (12.0-15.5); HGB HCT DIFFERENCE -2.2; MEAN CORPUSCULAR HEMOGLOBIN 26.6 pg (27.0-33.4); MEAN CORPUSCULAR HGB CONC 31.3 g/dL (32.0-36.0); MEAN CORPUSCULAR VOLUME 85 fl (80-97); MONOCYTES % (AUTO) 6.8 % (3-13); RED BLOOD COUNT 4.18 10^6/uL (3.72-5.28); RED CELL DISTRIBUTION WIDTH 15.2 % (11.5-14.0); SEGMENTED NEUTROPHILS % (AUTO) 43.9 % (42-78); WHITE BLOOD COUNT 6.2 10^3/uL (4.0-10.5)
[2017-02-07 03:42] LABS: ALANINE AMINOTRANSFERASE 27 U/L (9-52); ALBUMIN 4.9 g/dL (3.5-5.0); ALKALINE PHOSPHATASE 74 U/L (38-126); ANION GAP 13 (5-19); ASPARTATE AMINO TRANSFERASE 24 U/L (14-36); BILIRUBIN,DIRECT 0.3 mg/dL (0.0-0.4); BILIRUBIN,TOTAL 0.5 mg/dL (0.2-1.3); BLOOD UREA NITROGEN 11 mg/dL (7-20); CALCIUM 9.7 mg/dL (8.4-10.2); CARBON DIOXIDE 27 mmol/L (22-30); CHLORIDE 106 mmol/L (98-107); CREATININE RESULT 0.72 mg/dL (0.52-1.25); GLUCOSE 87 mg/dL (75-110); POTASSIUM 3.7 mmol/L (3.6-5.0); SODIUM 146.1 mmol/L (137-145); TOTAL PROTEIN 8.7 g/dL (6.3-8.2)
--- NOTE | 2017-02-07 03:42 | RADIOLOGY REPORT (SQ) ---
EXAM DESCRIPTION: ACUTE ABDOMEN SERIES COMPLETED DATE/TIME: 02/07/2017 3:29 am REASON FOR STUDY: abd pain/swelling, nausea COMPARISON: None. NUMBER OF VIEWS: Three views. TECHNIQUE: Frontal chest, supine abdomen and upright/decubitus abdomen radiographic images acquired. LIMITATIONS: None. FINDINGS: CHEST: Lungs clear of infiltrates. FREE AIR: None. No abnormal gas collections. BOWEL GAS PATTERN: Nonobstructive pattern. No dilated loops or air fluid levels. Moderate colonic st ool retention spares the splenic flexure. CALCIFICATIONS: No suspicious calcifications. HARDWARE: None in the abdomen. SOFT TISSUES: No gross mass or suggestion of organomegaly. BONES: No acute fracture. No worrisome bone lesions. Mild primary osteoarthritis of the hips. OTHER: No other significant finding. IMPRESSION: NO RADIOGRAPHIC EVIDENCE FOR ACUTE ABDOMINAL DISEASE. TECHNICAL DOCUMENTATION: JOB ID: [id number] [employer]- All Rights Reserved
[2017-02-07] MEDS ORDERED: MAGNESIUM CITRATE 296 ML BOTTLE PO ONE (04:10)
[2017-02-07] MEDS ORDERED: DIPHENHYDRAMINE HCL 25 MG CAPSULE PO ONE (04:10)
[2017-02-07] MEDS ORDERED: PROMETHAZINE HCL 25 MG TABLET PO ONE (04:10)
[2017-02-07 04:17] VITALS: BP 144/99
== END 2017-02-07 04:43 | disposition home or self-care (01) ==
LOC: ER 22:47
DX: K59.00 Constipation, unspecified (principal); R10.84 Generalized abdominal pain; R11.0 Nausea; R51 Headache; F41.9 Anxiety disorder, unspecified; I10 Essential (primary) hypertension; Z88.8 Allergy status to other drugs, medicaments and biological substances; Z88.5 Allergy status to narcotic agent
CPT/HCPCS: 99284; 96372; 96374; 36415; 85025; 81025; 80053; 81001; 74022; J3490; J1200; J2550

== ENCOUNTER 2017-02-09 17:54 | Emergency (ER) | payer SELFPAY ==
--- NOTE | 2017-02-09 19:23 | ER Document Report ---
ED Medical Screen (RME) - General Chief Complaint: Abdominal Pain Stated Complaint: ANXIETY Time Seen by Provider: 02/09/17 19:03 Mode of Arrival: Medic Information source: Patient Notes: This is a 31-year-old female with a history of ADHD, anxiety, hypertension brought in by ambulance because of possible complaints. Patient states she has had a headache for the past week on and off. She states she is been nauseated and has had vomiting. Patient states she has been constipated for the past week. Patient states she has been very anxious and has run out of her medicines. Patient states that she has had lower extremity swelling from the lisinopril and her blood pressure has been up lately. Patient denies chest pain , abdominal pain. TRAVEL OUTSIDE OF THE [place] IN LAST 30 DAYS: No - Related Data Allergies/Adverse Reactions: ketorolac tromethamine [From Toradol] Allergy (Verified 02/09/17 18:57) meperidine HCl [From Demerol] Allergy (Verified 02/09/17 18:57) metoclopramide HCl [From Reglan] Allergy (Verified 02/09/17 18:57) morphine [Morphine] Allergy (Verified 02/09/17 18:57) tramadol [Tramadol] Allergy (Verified 02/09/17 18:57) Hives ondansetron HCl [From Zofran] Adverse Reaction (Verified 02/09/17 18:57) VOMITING Past Medical History - Social History Chew tobacco use (# tins/day): No Frequency of alcohol use: None Drug Abuse: None - Past Medical History Cardiac Medical History: Reports: Hx Hypertension Renal/ Medical History: Denies: Hx Peritoneal Dialysis Psychiatric Medical History: Reports: Hx Anxiety, Hx Attention Deficit Hyperactivity Disorder, Hx Depression - w/ anxiety, Hx Post Traumatic Stress Disorder Past Surgical History: Reports: Hx Abdominal Surgery - LAPROSCOPY, Hx Gynecologic Surgery - d&c, lap - Immunizations Immunizations up to date: Yes Hx Diphtheria, Pertussis, Tetanus Vaccination: Yes - 2010 Physical Exam - Vital signs Vitals: Temp Pulse Resp BP Pulse Ox 99.1 F 92 16 141/92 H 100 02/09/17 18:06 02/09/17 18:06 02/09/17 18:06 02/09/17 18:06 02/09/17 18:06 Course - Vital Signs Vital signs: Temp Pulse Resp BP Pulse Ox 99.1 F 92 16 141/92 H 100 02/09/17 18:06 02/09/17 18:06 02/09/17 18:06 02/09/17 18:06 02/09/17 18:06
[2017-02-09] MEDS ORDERED: NORMAL SALINE 1000 ML 1,000 ML IV PRN (19:24)
[2017-02-09] MEDS ORDERED: DIPHENHYDRAMINE HCL 50 MG/ML VIAL IV ONE ×2 (19:24→21:27)
[2017-02-09] MEDS ORDERED: PROMETHAZINE HCL 25 MG TABLET PO ONE (19:24)
[2017-02-09 20:17] LABS: ALANINE AMINOTRANSFERASE 26 U/L (9-52); ALBUMIN 4.5 g/dL (3.5-5.0); ALKALINE PHOSPHATASE 63 U/L (38-126); ANION GAP 14 (5-19); ASPARTATE AMINO TRANSFERASE 41 U/L (14-36); BILIRUBIN,DIRECT 0.3 mg/dL (0.0-0.4); BILIRUBIN,TOTAL 0.9 mg/dL (0.2-1.3); BLOOD UREA NITROGEN 13 mg/dL (7-20); CALCIUM 9.5 mg/dL (8.4-10.2); CARBON DIOXIDE 21 mmol/L (22-30); CHLORIDE 107 mmol/L (98-107); CREATININE RESULT 0.63 mg/dL (0.52-1.25); GLUCOSE 84 mg/dL (75-110); POTASSIUM 4.7 mmol/L (3.6-5.0); SODIUM 141.6 mmol/L (137-145); TOTAL PROTEIN 8.1 g/dL (6.3-8.2)
[2017-02-09 20:22] LABS: ABSOLUTE EOSINOPHILS # (AUTO) 0.3 10^3/uL (0.0-0.6); ABSOLUTE MONOCYTES (AUTO) 0.6 10^3/uL (0.1-1.4); ABSOLUTE NEUT (AUTO) 3.4 10^3/uL (1.7-8.2); BASOPHILS % (AUTO) 0.5 % (0-2); EOSINOPHILS % (AUTO) 4.4 % (0-6); HEMATOCRIT 36.2 % (36.0-47.0); HEMOGLOBIN 11.5 g/dL (12.0-15.5); HGB HCT DIFFERENCE -1.7; LYMPHOCYTES % (AUTO) 32.4 % (13-45); MEAN CORPUSCULAR HEMOGLOBIN 26.8 pg (27.0-33.4); MEAN CORPUSCULAR HGB CONC 31.7 g/dL (32.0-36.0); MEAN CORPUSCULAR VOLUME 84 fl (80-97); MONOCYTES % (AUTO) 8.9 % (3-13); RED BLOOD COUNT 4.29 10^6/uL (3.72-5.28); RED CELL DISTRIBUTION WIDTH 14.8 % (11.5-14.0); SEGMENTED NEUTROPHILS % (AUTO) 53.8 % (42-78); WHITE BLOOD COUNT 6.3 10^3/uL (4.0-10.5)
--- NOTE | 2017-02-09 20:28 | ER Document Report ---
ED GI/ - General Mode of Arrival: Medic Information source: Patient TRAVEL OUTSIDE OF THE [place] IN LAST 30 DAYS: No - HPI Patient complains to provider of: Abdominal pain Associated symptoms: Other - See above <LINNETTE OWENS - Last Filed: 02/09/17 22:10> <SHAILA DIAZ - Last Filed: 02/10/17 00:15> - General Chief Complaint: Abdominal Pain Stated Complaint: abdominal pain Time Seen by Provider: 02/09/17 19:03 Notes: Patient is a 31 year old female, with a past medical history including ADHD, anxiety, and hypertension, who presents to the emergency department complaining of abdominal pain. Patient was seen at this facility 2 days ago with similar complaints and was told she was constipated and needed to have a bowel movement , patient reports she has not had a bowel movement and has been unable to take any of the medications or fill her prescriptions. Patient also reports being out of her regular Aderal, Klonopin, and Lisinopril for the past week and is worried about her health. Patient also complains of swelling in her breasts, headache, and anxiety. Psychiatrist: Hermelindo PCP: [facility] (LINNETTE OWENS) - Related Data Allergies/Adverse Reactions: ketorolac tromethamine [From Toradol] Allergy (Verified 02/09/17 18:57) meperidine HCl [From Demerol] Allergy (Verified 02/09/17 18:57) metoclopramide HCl [From Reglan] Allergy (Verified 02/09/17 18:57) morphine [Morphine] Allergy (Verified 02/09/17 18:57) tramadol [Tramadol] Allergy (Verified 02/09/17 18:57) Hives ondansetron HCl [From Zofran] Adverse Reaction (Verified 02/09/17 18:57) VOMITING Past Medical History - General Information source: Patient - Social History Smoking Status: Current Some Day Smoker Chew tobacco use (# tins/day): No Frequency of alcohol use: None Drug Abuse: None Family History: Reviewed & Not Pertinent Patient has suicidal ideation: No Patient has homicidal ideation: No - Past Medical History Cardiac Medical History: Reports: Hx Hypertension Psychiatric Medical History: Reports: Hx Anxiety, Hx Attention Deficit Hyperactivity Disorder, Hx Depression - w/ anxiety, Hx Post Traumatic Stress Disorder Past Surgical History: Reports: Hx Abdominal Surgery - LAPROSCOPY, Hx Gynecologic Surgery - d&c, lap - Immunizations Immunizations up to date: Yes Hx Diphtheria, Pertussis, Tetanus Vaccination: Yes - 2010 <LINNETTE OWENS - Last Filed: 02/09/17 22:10> Review of Systems - Review of Systems Constitutional: No symptoms reported EENT: No symptoms reported Cardiovascular: No symptoms reported Respiratory: No symptoms reported Gastrointestinal: See HPI, Abdominal pain, Constipation Genitourinary: No symptoms reported Female Genitourinary: See HPI, Other - swollen breasts Musculoskeletal: No symptoms reported Skin: No symptoms reported Hematologic/Lymphatic: No symptoms reported Neurological/Psychological: See HPI, Anxiety, Headaches -: Yes All other systems reviewed and negative <LINNETTE OWENS - Last Filed: 02/09/17 22:10> Physical Exam <LINNETTE OWENS - Last Filed: 02/09/17 22:10> <SHAILA DIAZ - Last Filed: 02/10/17 00:15> - Vital signs Vitals: Temp Pulse Resp BP Pulse Ox 99.1 F 92 16 141/92 H 100 02/09/17 18:06 02/09/17 18:06 02/09/17 18:06 02/09/17 18:06 02/09/17 18:06 - Notes Notes: GENERAL: Alert, interacts well. No acute distress. HEAD: Normocephalic, atraumatic. EYES: Pupils equal, round, and reactive to light. Extraocular movements intact. ENT: Oral mucosa moist, tongue midline. NECK: Full range of motion. Supple. Trachea midline. LUNGS: Clear to auscultation bilaterally, no wheezes, rales, or rhonchi. No respiratory distress. HEART: Regular rate and rhythm. No murmurs, gallops, or rubs. ABDOMEN: Soft, non-tender. Non-distended. Bowel sounds present in all 4 quadrants. EXTREMITIES: Moves all 4 extremities spontaneously. NEUROLOGICAL: Alert and oriented x3. Normal speech. PSYCH: Appears mildly anxious. SKIN: Warm, dry, normal turgor. No rashes or lesions noted. (LINNETTE OWENS) Course - Laboratory Result Diagrams: 02/09/17 19:50 02/09/17 19:50 <LINNETTE OWENS - Last Filed: 02/09/17 22:10> - Laboratory Result Diagrams: 02/09/17 19:50 02/09/17 19:50 <SHAILA DIAZ - Last Filed: 02/10/17 00:15> - Re-evaluation Re-evalutation: 02/09/17 21:51 CBC shows mild anemia with hemoglobin 11.5, low platelets at 129, CMP shows slightly low CO2 at 21, CMP unremarkable, urinalysis shows trace esterase but for squamous epithelial cells, suspect contamination. test is negative. Patient has been out of her Klonopin and her Adderall for a week. She has no signs of life-threatening withdrawal from benzodiazepines or from Adderall. She is out of the timeframe for life-threatening withdrawal from benzodiazepines. Discussed with patient that some of her symptoms may be coming from the fact that she is withdrawing from these medications so is no longer life-threatening. Patient has prescriptions at the pharmacy waiting to be filled but simply states she cannot afford them. Patient is encouraged to follow-up with her primary care physician and to discuss with family members the possibility alone to afford her medications. Patient will be discharged to home. Headache was treated with Compazine and Benadryl, patient is also given Phenergan suppositories for her nausea to be used at home. Patient did end up drinking her magnesium citrate for the constipation of which she has been complaining for the past 4 days. (SHAILA DIAZ) - Vital Signs Vital signs: Temp Pulse Resp BP Pulse Ox 97.9 F 84 17 138/85 H 99 02/09/17 22:00 02/09/17 22:00 02/09/17 22:00 02/09/17 22:00 02/09/17 22:00 - Laboratory Laboratory results interpreted by me: 02/09/17 02/09/17 02/09/17 19:34 19:50 19:50 Hgb 11.5 L MCH 26.8 L MCHC 31.7 L RDW 14.8 H Plt Count 129 L Carbon Dioxide 21 L AST 41 H Ur Leukocyte Esterase TRACE H Discharge <LINNETTE OWENS - Last Filed: 02/09/17 22:10> <SHAILA DIAZ - Last Filed: 02/10/17 00:15> - Discharge Clinical Impression: Stimulant withdrawal, Headache above the eye region Constipation Qualifiers: Constipation type: drug induced constipation Qualified Code(s): K59.03 - Drug induced constipation Withdrawal from benzodiazepine Qualifiers: Complication of substance-induced condition: uncomplicated Qualified Code(s): F13.230 - Sedative, hypnotic or anxiolytic dependence with withdrawal, uncomplicated Condition: Stable Disposition: HOME, SELF-CARE Additional Instructions: Return for fevers, uncontrollable vomiting, worsening abdominal pain, worsening headaches or any new or concerning symptoms. Prescriptions: Promethazine HCl [Phenergan 25 mg Supp.rect] 1 supp VA Q6H #12 supp.rect Forms: Elevated Blood Pressure Scribe Attestation: 02/10/17 00:15 I personally performed the services described in the documentation, reviewed and edited the documentation which was dictated to the scribe in my presence, and it accurately records my words and actions. (SHAILA DIAZ) Scribe Documentation - Scribe Written by Moreno:: moreno Anderson, [id number] acting as scribe for :: Rufina <LINNETTE OWENS - Last Filed: 02/09/17 22:10>
[2017-02-09 20:29] LABS: APPEARANCE,URINE SLIGHTLY-CLOUDY; BILIRUBIN,URINE NEGATIVE (NEGATIVE); GLUCOSE, URINE NEGATIVE (NEGATIVE); KETONES,URINE NEGATIVE (NEGATIVE); LEUKOCYTE ESTERASE,URINE TRACE (NEGATIVE); NITRITE,URINE NEGATIVE (NEGATIVE); PROTEIN,URINE NEGATIVE (NEGATIVE); URINE SPECIFIC GRAVITY 1.019; UROBILINOGEN,URINE NEGATIVE mg/dL (<2.0)
[2017-02-09] MEDS ORDERED: PROMETHAZINE HCL INJ 25 MG/1 ML VIAL IM ONE (20:29)
[2017-02-09] MEDS ORDERED: MAGNESIUM CITRATE 296 ML BOTTLE PO ONE (20:29)
[2017-02-09] MEDS ORDERED: PROCHLORPERAZINE EDISYLATE INJ 10 MG/2 ML VIAL IV ONE (21:27)
[2017-02-09 23:33] VITALS: BP 138/85
== END 2017-02-09 22:00 | disposition home or self-care (01) ==
LOC: ER 17:54
DX: F15.93 Other stimulant use, unspecified with withdrawal (principal); R51 Headache; K59.03 Drug induced constipation; F13.230 Sedative, hypnotic or anxiolytic dependence with withdrawal, uncomplicated; R10.9 Unspecified abdominal pain; F90.9 Attention-deficit hyperactivity disorder, unspecified type; F41.9 Anxiety disorder, unspecified; I10 Essential (primary) hypertension; N63 Unspecified lump in breast; F17.200 Nicotine dependence, unspecified, uncomplicated
CPT/HCPCS: 99284; 96372; 96361; 96374; 36415; 84702; 85025; 80053; 81001; J3490; J1200; J2550; J7030

== ENCOUNTER 2017-02-12 19:00 | Emergency (ER) | payer SELFPAY ==
[2017-02-12] MEDS ORDERED: HYDROXYZINE PAMOATE 50 MG CAPSULE PO ONE (19:25)
--- NOTE | 2017-02-12 19:26 | ER Document Report ---
ED Medical Screen (RME) - General Chief Complaint: Anxiety Stated Complaint: PANIC ATTACK Time Seen by Provider: 02/12/17 19:25 TRAVEL OUTSIDE OF THE [place] IN LAST 30 DAYS: No - HPI Notes: 02/12/17 19:25 Multiple recent evaluation for anxiety possible stimulant withdrawal - Related Data Allergies/Adverse Reactions: ketorolac tromethamine [From Toradol] Allergy (Verified 02/12/17 19:02) meperidine HCl [From Demerol] Allergy (Verified 02/12/17 19:02) metoclopramide HCl [From Reglan] Allergy (Verified 02/12/17 19:02) morphine [Morphine] Allergy (Verified 02/12/17 19:02) tramadol [Tramadol] Allergy (Verified 02/12/17 19:02) Hives ondansetron HCl [From Zofran] Adverse Reaction (Verified 02/12/17 19:02) VOMITING Past Medical History - Social History Chew tobacco use (# tins/day): No Frequency of alcohol use: None Drug Abuse: None - Past Medical History Cardiac Medical History: Reports: Hx Hypertension Renal/ Medical History: Denies: Hx Peritoneal Dialysis Psychiatric Medical History: Reports: Hx Anxiety, Hx Attention Deficit Hyperactivity Disorder, Hx Depression - w/ anxiety, Hx Post Traumatic Stress Disorder Past Surgical History: Reports: Hx Abdominal Surgery - LAPROSCOPY, Hx Gynecologic Surgery - d&c, lap - Immunizations Immunizations up to date: Yes Hx Diphtheria, Pertussis, Tetanus Vaccination: Yes - 2010 Review of Systems - Review of Systems Neurological/Psychological: Anxiety Physical Exam - Vital signs Vitals: Temp Pulse Resp BP Pulse Ox 98.7 F 136 H 22 H 154/113 H 99 02/12/17 19:02 02/12/17 19:02 02/12/17 19:02 02/12/17 19:02 02/12/17 19:02 - Psychological Associated symptoms: Anxious Course - Vital Signs Vital signs: Temp Pulse Resp BP Pulse Ox 98.7 F 136 H 22 H 154/113 H 99 02/12/17 19:02 02/12/17 19:02 02/12/17 19:02 02/12/17 19:02 02/12/17 19:02 Doctor's Discharge - Discharge Instructions: Anxiety ([facility])
[2017-02-12] MEDS ORDERED: CLONIDINE HCL 0.1 MG TABLET PO ONE (19:40)
[2017-02-12] MEDS ORDERED: LORAZEPAM 1 MG TABLET PO ONE (19:41)
[2017-02-12] MEDS ORDERED: PROMETHAZINE HCL 25 MG TABLET PO ONE ×2 (19:41→21:23)
--- NOTE | 2017-02-12 19:49 | ER Document Report ---
ED General - General Chief Complaint: Anxiety Stated Complaint: PANIC ATTACK Time Seen by Provider: 02/12/17 19:25 Mode of Arrival: Ambulatory Information source: Patient Notes: This is a 31-year-old female with a history of ADHD and anxiety, multiple visits to the emergency room who presents to the emergency room tonight scared, anxious, jittery, "I do not feel good, my hair is falling out". Patient states his symptoms have been going on for the past week after stopping her Adderall and Klonopin. Was seen in the emergency room 3 days and treated with IV fluids , Compazine, Phenergan and she was discharged with Phenergan suppositories. She states she was unable to get her Phenergan suppositories filled because of money issues. TRAVEL OUTSIDE OF THE [place] IN LAST 30 DAYS: No - HPI Onset: Last week Onset/Duration: Gradual Quality of pain: No pain Severity: None Pain Level: Denies Associated symptoms: denies: Chest pain, Fever, Shortness of breath Exacerbated by: Denies Relieved by: Denies Similar symptoms previously: Yes Recently seen / treated by doctor: Yes - Related Data Allergies/Adverse Reactions: ketorolac tromethamine [From Toradol] Allergy (Verified 02/12/17 19:02) meperidine HCl [From Demerol] Allergy (Verified 02/12/17 19:02) metoclopramide HCl [From Reglan] Allergy (Verified 02/12/17 19:02) morphine [Morphine] Allergy (Verified 02/12/17 19:02) tramadol [Tramadol] Allergy (Verified 02/12/17 19:02) Hives hydroxyzine [From Vistaril] Adverse Reaction (Verified 02/12/17 22:32) Anxiety ondansetron HCl [From Zofran] Adverse Reaction (Verified 02/12/17 19:02) VOMITING Past Medical History - General Information source: Patient - Social History Smoking Status: Current Some Day Smoker Chew tobacco use (# tins/day): No Frequency of alcohol use: None Drug Abuse: None Lives with: Alone Family History: Reviewed & Not Pertinent Patient has suicidal ideation: No Patient has homicidal ideation: No - Past Medical History Cardiac Medical History: Reports: Hx Hypertension Renal/ Medical History: Denies: Hx Peritoneal Dialysis Psychiatric Medical History: Reports: Hx Anxiety, Hx Attention Deficit Hyperactivity Disorder, Hx Depression - w/ anxiety, Hx Post Traumatic Stress Disorder Past Surgical History: Reports: Hx Abdominal Surgery - LAPROSCOPY, Hx Gynecologic Surgery - d&c, lap - Immunizations Immunizations up to date: Yes Hx Diphtheria, Pertussis, Tetanus Vaccination: Yes - 2010 Review of Systems - Review of Systems Constitutional: denies: Chills, Fever EENT: No symptoms reported Cardiovascular: No symptoms reported Respiratory: No symptoms reported Gastrointestinal: See HPI Genitourinary: No symptoms reported Female Genitourinary: No symptoms reported Musculoskeletal: No symptoms reported Skin: No symptoms reported Hematologic/Lymphatic: No symptoms reported Neurological/Psychological: Anxiety. denies: Confusion, Homicidal ideation, Suicidal ideation Physical Exam - Vital signs Vitals: Temp Pulse Resp BP Pulse Ox 98.7 F 136 H 22 H 154/113 H 99 02/12/17 19:02 02/12/17 19:02 02/12/17 19:02 02/12/17 19:02 02/12/17 19:02 Notes: Physical exam: GENERAL:-year-old female, alert and oriented 3, appears anxious HEAD: Atraumatic, normocephalic. EYES: Pupils equal round and reactive to light, extraocular movements intact, sclera anicteric, conjunctiva are normal. ENT: TMs normal, nares patent, oropharynx clear without exudates. Moist mucous membranes. NECK: Normal range of motion, supple without lymphadenopathy or JVD. LUNGS: Breath sounds clear to auscultation bilaterally and equal. No wheezes rales or rhonchi. HEART: Regular rate and rhythm without murmurs, rubs or gallops. ABDOMEN: Soft, normoactive bowel sounds. No tenderness to palpation. No guarding, no rebound. No masses appreciated. EXTREMITIES: Normal range of motion, no pitting or edema. No clubbing or cyanosis. NEUROLOGICAL: Cranial nerves II through XII grossly intact. Moving all extremities, appears anxious, no delusions, no hallucinations, no suicidal ideations PSYCH: Anxious SKIN: Warm, Dry, normal turgor, no rashes or lesions noted. Course - Vital Signs Vital signs: Temp Pulse Resp BP Pulse Ox 98.8 F 87 16 127/81 H 100 02/12/17 22:05 02/12/17 22:05 02/12/17 22:05 02/12/17 22:05 02/12/17 22:05 - Laboratory Result Diagrams: 02/12/17 20:48 02/12/17 20:48 Laboratory results interpreted by me: 02/12/17 02/12/17 02/12/17 19:34 20:48 20:48 MCH 26.8 L MCHC 31.9 L RDW 15.0 H BUN 22 H Total Protein 8.9 H Urine Protein 100 H Ur Leukocyte Esterase MODERATE H Discharge - Discharge Clinical Impression: Anxiety Condition: Stable Disposition: HOME, SELF-CARE Instructions: Anxiety ([facility]) Additional Instructions: Follow-up [facility] planned on Tuesday Phenergan for nausea
[2017-02-12 20:14] LABS: APPEARANCE,URINE CLOUDY; BILIRUBIN,URINE NEGATIVE (NEGATIVE); GLUCOSE, URINE NEGATIVE (NEGATIVE); KETONES,URINE NEGATIVE (NEGATIVE); LEUKOCYTE ESTERASE,URINE MODERATE (NEGATIVE); NITRITE,URINE NEGATIVE (NEGATIVE); PROTEIN,URINE 100 mg/dL (NEGATIVE); URINE SPECIFIC GRAVITY 1.027; UROBILINOGEN,URINE NEGATIVE mg/dL (<2.0)
[2017-02-12 20:28] LABS: URINE BARBITURATES SCREEN NEGATIVE; URINE METHADONE SCREEN NEGATIVE; URINE OPIATES LOW NEGATIVE; URINE PHENCYCLIDINE SCREEN NEGATIVE
[2017-02-12 20:45] LABS: BACTERIA,URINE 4+ /HPF
[2017-02-12] MEDS: NORMAL SALINE 1000 ML 1,000 ML IV PRN ×2 (20:45→21:32)
[2017-02-12 21:09] LABS: ABSOLUTE EOSINOPHILS # (AUTO) 0.2 10^3/uL (0.0-0.6); ABSOLUTE LYMPHOCYTES (AUTO) 2.3 10^3/uL (0.5-4.7); ABSOLUTE MONOCYTES (AUTO) 0.7 10^3/uL (0.1-1.4); ABSOLUTE NEUT (AUTO) 2.4 10^3/uL (1.7-8.2); BASOPHILS % (AUTO) 0.4 % (0-2); HEMATOCRIT 38.2 % (36.0-47.0); HEMOGLOBIN 12.2 g/dL (12.0-15.5); HGB HCT DIFFERENCE -1.6; LYMPHOCYTES % (AUTO) 41.9 % (13-45); MEAN CORPUSCULAR HEMOGLOBIN 26.8 pg (27.0-33.4); MEAN CORPUSCULAR HGB CONC 31.9 g/dL (32.0-36.0); MEAN CORPUSCULAR VOLUME 84 fl (80-97); MONOCYTES % (AUTO) 11.9 % (3-13); RED BLOOD COUNT 4.55 10^6/uL (3.72-5.28); SEGMENTED NEUTROPHILS % (AUTO) 42.8 % (42-78); WHITE BLOOD COUNT 5.5 10^3/uL (4.0-10.5)
[2017-02-12] MEDS ORDERED: DIPHENHYDRAMINE HCL 50 MG/ML VIAL IV ONE (21:23)
[2017-02-12 21:32] LABS: ALANINE AMINOTRANSFERASE 28 U/L (9-52); ALKALINE PHOSPHATASE 61 U/L (38-126); ANION GAP 15 (5-19); ASPARTATE AMINO TRANSFERASE 22 U/L (14-36); BILIRUBIN,DIRECT 0.3 mg/dL (0.0-0.4); BILIRUBIN,TOTAL 0.8 mg/dL (0.2-1.3); BLOOD UREA NITROGEN 22 mg/dL (7-20); CALCIUM 9.9 mg/dL (8.4-10.2); CARBON DIOXIDE 23 mmol/L (22-30); CHLORIDE 103 mmol/L (98-107); CREATININE RESULT 0.74 mg/dL (0.52-1.25); GLUCOSE 96 mg/dL (75-110); POTASSIUM 4.5 mmol/L (3.6-5.0); SODIUM 140.6 mmol/L (137-145); TOTAL PROTEIN 8.9 g/dL (6.3-8.2)
[2017-02-12 22:09] VITALS: BP 127/81
[2017-02-12] MEDS ORDERED: CLONAZEPAM 1 MG TABLET PO ONE (22:35)
[2017-02-12] MEDS ORDERED: PROMETHAZINE HCL 25 MG SUPP (4 SUPP/ER DISP) PR ONE (22:35)
== END 2017-02-12 22:52 | disposition home or self-care (01) ==
LOC: ER 19:00
DX: F41.9 Anxiety disorder, unspecified (principal); F90.9 Attention-deficit hyperactivity disorder, unspecified type; Z79.899 Other long term (current) drug therapy; F17.200 Nicotine dependence, unspecified, uncomplicated
CPT/HCPCS: 99283; 96361; 96374; 96375; 36415; 83735; 85025; 80053; 81001; 80307; J1200; J3490; J7030

== ENCOUNTER 2017-02-26 04:07 | Emergency (ER) | payer SELFPAY ==
[2017-02-26] MEDS ORDERED: DIPHENHYDRAMINE HCL 50 MG/ML VIAL IV ONE (04:27)
[2017-02-26] MEDS ORDERED: NORMAL SALINE 1000 ML 1,000 ML IV ONE (04:27)
[2017-02-26] MEDS ORDERED: ACETAMINOPHEN 325 MG TABLET PO ONE (04:27)
[2017-02-26] MEDS ORDERED: PROCHLORPERAZINE EDISYLATE INJ 10 MG/2 ML VIAL IV ONE (04:27)
--- NOTE | 2017-02-26 04:35 | ER Document Report ---
ED Headache - General Chief Complaint: Headache Stated Complaint: HEADACHE/NAUSEA Time Seen by Provider: 02/26/17 04:26 Mode of Arrival: Medic Information source: Patient Notes: 31-year-old female presents to ED for headache nausea and vomiting. She states she was at home with dad who was acting unusual she became anxious. States she has had a headache for at least 48 hours took some Tylenol yesterday and did not get better has had been nauseated with some vomiting and thinks she is dehydrated. States she saw her psychiatrist and her psychologist yesterday and the day before they changed her from Klonopin to Ativan because she was not taking the Klonopin correctly. States she was told that she had elevated blood pressure at the doctor's office and was told to stay out of the heat. She also was told she had low iron but that they could not give her the arm because she was constipated but now she got metabolic the stool. TRAVEL OUTSIDE OF THE [place] IN LAST 30 DAYS: No - HPI Patient reports: Hx chronic headaches, Other - Hypertension Onset: Other - 48 hours Onset was: Cannot pinpoint Timing: Still present Quality of pain: Achy, Throbbing Severity: Moderate Pain Level: 3 Associated symptoms: Lightheaded, Nausea/vomiting Exacerbated by: Noise, Movement Similar symptoms previously: Yes Recently seen / treated by doctor: Yes - Related Data Allergies/Adverse Reactions: ketorolac tromethamine [From Toradol] Allergy (Verified 02/12/17 19:02) meperidine HCl [From Demerol] Allergy (Verified 02/12/17 19:02) metoclopramide HCl [From Reglan] Allergy (Verified 02/12/17 19:02) morphine [Morphine] Allergy (Verified 02/12/17 19:02) tramadol [Tramadol] Allergy (Verified 02/12/17 19:02) Hives hydroxyzine [From Vistaril] Adverse Reaction (Verified 02/12/17 22:32) Anxiety ondansetron HCl [From Zofran] Adverse Reaction (Verified 02/12/17 19:02) VOMITING Past Medical History - General Information source: Patient - Social History Smoking Status: Current Every Day Smoker Cigarette use (# per day): Yes - 1-2 cigs a day Chew tobacco use (# tins/day): No Smoking Education Provided: Yes - Less than 2 minutes Frequency of alcohol use: None Drug Abuse: None 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 Lives with: Family Family History: Reviewed & Not Pertinent - Past Medical History Cardiac Medical History: Reports: Hx Hypertension Pulmonary Medical History: Reports: None EENT Medical History: Reports: None Neurological Medical History: Reports: Hx Migraine Endocrine Medical History: Reports: None Renal/ Medical History: Reports: None Malignancy Medical History: Reports: None GI Medical History: Reports: None Musculoskeltal Medical History: Reports None Psychiatric Medical History: Reports: Hx Anxiety, Hx Attention Deficit Hyperactivity Disorder, Hx Depression, Hx Post Traumatic Stress Disorder Traumatic Medical History: Reports: None Infectious Medical History: Reports: None Past Surgical History: Reports: Hx Abdominal Surgery - LAPROSCOPY, Hx Gynecologic Surgery - d&c, lap, Other - facial reconstruction - Immunizations Immunizations up to date: Yes Hx Diphtheria, Pertussis, Tetanus Vaccination: Yes - 2010 Review of Systems - Review of Systems Constitutional: No symptoms reported EENT: No symptoms reported Cardiovascular: No symptoms reported Respiratory: No symptoms reported Gastrointestinal: Nausea, Vomiting Genitourinary: No symptoms reported Female Genitourinary: No symptoms reported Musculoskeletal: No symptoms reported Skin: No symptoms reported Hematologic/Lymphatic: No symptoms reported Neurological/Psychological: Headaches -: Yes All other systems reviewed and negative Physical Exam - Vital signs Vitals: Temp Pulse Resp BP Pulse Ox 98.3 F 97 20 135/99 H 100 02/26/17 04:02/26/17 04:02/26/17 04:17 02/26/17 04:02/26/17 04:17 Interpretation: Normal - General General appearance: Appears well, Alert - HEENT Head: Normocephalic, Atraumatic Eyes: Normal Pupils: PERRL - Respiratory Respiratory status: No respiratory distress Chest status: Nontender Breath sounds: Normal Chest palpation: Normal - Cardiovascular Rhythm: Regular Heart sounds: Normal auscultation Murmur: No - Abdominal Inspection: Normal Distension: No distension Bowel sounds: Normal Tenderness: Nontender Organomegaly: No organomegaly - Back Back: Normal, Nontender - Extremities General upper extremity: Normal inspection, Nontender, Normal color, Normal ROM , Normal temperature General lower extremity: Normal inspection, Nontender, Normal color, Normal ROM , Normal temperature, Normal weight bearing. No: Yovani's sign - Neurological Neuro grossly intact: Yes Cognition: Normal Orientation: AAOx4 Ron Coma Scale Eye Opening: Spontaneous Ron Coma Scale Verbal: Oriented [place] Star Coma Scale Motor: Obeys Commands Rising Star Coma Scale Total: 15 Speech: Normal Motor strength normal: LUE, RUE, LLE, RLE Sensory: Normal - Psychological Associated symptoms: Normal affect, Normal mood - Skin Skin Temperature: Warm Skin Moisture: Dry Skin Color: Normal Course - Vital Signs Vital signs: Temp Pulse Resp BP Pulse Ox 98.3 F 97 20 135/99 H 100 02/26/17 04:17 02/26/17 04:17 02/26/17 04:17 02/26/17 04:17 02/26/17 04:17 - Laboratory Result Diagrams: 02/26/17 04:55 02/26/17 04:55 Laboratory results interpreted by me: 02/26/17 02/26/17 02/26/17 04:55 04:55 04:55 WBC 3.8 L Hgb 10.2 L Hct 31.7 L MCH 26.8 L RDW 15.4 H Seg Neutrophils % 36.0 L Lymphocytes % 47.4 H Absolute Neutrophils 1.4 L Chloride 109 H Total Protein 8.4 H Urine Protein 30 H Urine Ketones TRACE H Urine Ascorbic Acid 40 H Discharge - Discharge Clinical Impression: Dehydration Headache Qualifiers: Headache type: unspecified Headache chronicity pattern: chronic headache Intractability: not intractable Qualified Code(s): R51 - Headache Nausea & vomiting Qualifiers: Vomiting type: unspecified Vomiting Intractability: non-intractable Qualified Code(s): R11.2 - Nausea with vomiting, unspecified Condition: Stable Disposition: HOME, SELF-CARE Instructions: Family Physicians / Practices Additional Instructions: HEADACHE: The physician does not feel that the headache you are experiencing has a serious underlying cause. Most headaches are due to emotional stress, with resultant muscle tension (tension headache). Occasionally, headaches are secondary to changes in the blood vessels of the scalp (vascular headache and migraine headache). Sometimes, a headache is the first symptom of another developing illness, such as a viral infection. You have no evidence of stroke, bleeding, meningitis, or other serious cause of your headache. The treatment of headaches varies with the severity and cause of the pain. Not all headaches need pain shots. In fact, there is evidence that using narcotics for headaches may make them worse in the long run. The physician will determine the therapy that's in your best interest. If you develop a fever, if the headache is different from any you've previously experienced, or if the headache progressively worsens, then call your physician at once or go to the emergency room. VOMITING: Vomiting (or nausea without vomiting) can be caused by many other different problems. It can mean that something's wrong with the stomach, such as ulcers or inflammation or the intestinal tract, such as appendicitis. But it can also be a symptom of a problem that has nothing to do with the stomach or intestines. Vomiting is common with severe headaches, earaches, tonsillitis, and kidney infections, etc. We see it with pneumonia or heart attacks. Drugs can cause nausea and vomiting. Many abdominal problems cause vomiting; for example, gallstones, kidney stones, pancreatitis, and intestinal obstruction ( blocked bowels). In most cases, curing the vomiting depends on fixing the problem that caused it. For temporary relief, we may use an anti-nausea medicine. For home use, we can prescribe suppositories, chewable pills, pills that dissolve in the mouth, or liquid anti-nausea drugs. If the vomiting seems to be caused by a problem in the stomach, acid-suppressing drugs may be prescribed as well. It's important to avoid dehydration. Sip small amounts of clear liquids ( soft drinks, tea, broth, etc) . Try to take fluids frequently even if you are vomiting to prevent dehydration. Take increasing amounts of fluid and when liquids are being consumed successfully, advance to small amounts of bland food (toast, soups, mashed potatoes, etc.) until you are able to resume a regular diet. Avoid aspirin, tobacco, and alcohol. If the vomiting worsens, if the problem that's making you vomit worsens, or if there's evidence of bleeding in the stomach (such as black, tarry stool, or bloody or black vomit), you should return immediately. Also, return if abdominal pain worsens or becomes localized to one area or you develop high fever. Call your doctor if you aren't improved in 24 hours. INTRAVENOUS (I V) FLUIDS: As part of your care today, you received intravenous (IV) fluids. IV fluids are administered to patients who are dehydrated or to those who have certain chemical (electrolyte) abnormalities that need correcting. USE OF DIPHENHYDRAMINE: Diphenhydramine (Benadryl) is an antihistamine and has been recommended to help treat your headache and to prevent side effects of other medications used to treat headaches. The medication can be repeated four times daily. Age Elixir (12.5 mg/tsp) 25 mg pill adult 1-2 tabs Antihistamines may cause drowsiness, especially with the first dose. Do not operate machinery or drive while under the effects of the medication. Do not combine the medication with alcohol, or with any other medication without talking to your doctor. INTRAVENOUS COMPAZINE FOR HEADACHE: You have received therapy for headaches, using intravenous Compazine. This treatment is dramatically successful in relieving the headache in about 50 percent of cases. When it works, it provides a rapid method of eliminating the headache without resorting to narcotics (and the problems associated with them). Most patients still feel fully alert after the Compazine, but others may be slightly drowsy. It's best not to drive or work with machinery for six to eight hours. Do not take alcohol or other medication unless you discuss it with the doctor. If you develop tightness and spasms in your muscles, especially the neck and tongue, you should return. This is a side effect which can be treated. FOLLOW-UP CARE: If you have been referred to a physician for follow-up care, call the physician s office for an appointment as you were instructed or within the next two days. If you experience worsening or a significant change in your symptoms, notify the physician immediately or return to the Emergency Department at any time for re-evaluation. Forms: Elevated Blood Pressure Referrals: [facility] [Provider Group] - Follow up as needed
[2017-02-26 05:19] LABS: ABSOLUTE EOSINOPHILS # (AUTO) 0.2 10^3/uL (0.0-0.6); ABSOLUTE LYMPHOCYTES (AUTO) 1.8 10^3/uL (0.5-4.7); ABSOLUTE MONOCYTES (AUTO) 0.4 10^3/uL (0.1-1.4); ABSOLUTE NEUT (AUTO) 1.4 10^3/uL (1.7-8.2); BASOPHILS % (AUTO) 0.9 % (0-2); EOSINOPHILS % (AUTO) 4.7 % (0-6); HEMATOCRIT 31.7 % (36.0-47.0); HEMOGLOBIN 10.2 g/dL (12.0-15.5); HGB HCT DIFFERENCE -1.1; LYMPHOCYTES % (AUTO) 47.4 % (13-45); MEAN CORPUSCULAR HEMOGLOBIN 26.8 pg (27.0-33.4); MEAN CORPUSCULAR HGB CONC 32.1 g/dL (32.0-36.0); MEAN CORPUSCULAR VOLUME 84 fl (80-97); RED CELL DISTRIBUTION WIDTH 15.4 % (11.5-14.0); WHITE BLOOD COUNT 3.8 10^3/uL (4.0-10.5)
[2017-02-26 05:28] LABS: APPEARANCE,URINE SLIGHTLY-CLOUDY; BILIRUBIN,URINE NEGATIVE (NEGATIVE); GLUCOSE, URINE NEGATIVE (NEGATIVE); KETONES,URINE TRACE mg/dL (NEGATIVE); LEUKOCYTE ESTERASE,URINE NEGATIVE (NEGATIVE); NITRITE,URINE NEGATIVE (NEGATIVE); PROTEIN,URINE 30 mg/dL (NEGATIVE); URINE SPECIFIC GRAVITY 1.032; UROBILINOGEN,URINE NEGATIVE mg/dL (<2.0)
[2017-02-26] MEDS ORDERED: NORMAL SALINE 1000 ML 1,000 ML IV PRN (05:37)
[2017-02-26 05:39] LABS: ALANINE AMINOTRANSFERASE 30 U/L (9-52); ALBUMIN 4.6 g/dL (3.5-5.0); ALKALINE PHOSPHATASE 57 U/L (38-126); ANION GAP 10 (5-19); ASPARTATE AMINO TRANSFERASE 35 U/L (14-36); BILIRUBIN,DIRECT 0.3 mg/dL (0.0-0.4); BILIRUBIN,TOTAL 1.1 mg/dL (0.2-1.3); BLOOD UREA NITROGEN 19 mg/dL (7-20); CALCIUM 9.4 mg/dL (8.4-10.2); CARBON DIOXIDE 24 mmol/L (22-30); CHLORIDE 109 mmol/L (98-107); CREATININE RESULT 0.76 mg/dL (0.52-1.25); GLUCOSE 86 mg/dL (75-110); POTASSIUM 3.6 mmol/L (3.6-5.0); SODIUM 143.3 mmol/L (137-145); TOTAL PROTEIN 8.4 g/dL (6.3-8.2)
[2017-02-26 05:42] LABS: URINE BARBITURATES SCREEN NEGATIVE; URINE METHADONE SCREEN NEGATIVE; URINE OPIATES LOW NEGATIVE; URINE PHENCYCLIDINE SCREEN NEGATIVE
[2017-02-26 07:35] VITALS: BP 136/89
== END 2017-02-26 07:35 | disposition home or self-care (01) ==
LOC: ER 04:07
DX: E86.0 Dehydration (principal); R51 Headache; R11.2 Nausea with vomiting, unspecified; F41.9 Anxiety disorder, unspecified; Z79.899 Other long term (current) drug therapy; I10 Essential (primary) hypertension; R42 Dizziness and giddiness; F17.210 Nicotine dependence, cigarettes, uncomplicated; Z71.6 Tobacco abuse counseling; Z88.8 Allergy status to other drugs, medicaments and biological substances; Z88.5 Allergy status to narcotic agent
CPT/HCPCS: 99284; 96361; 96374; 96375; 36415; 84703; 85025; 80053; 81001; 80307; J1200; J0780; J7030

== ENCOUNTER 2017-03-02 01:23 | Emergency (ER) | payer SELFPAY ==
--- NOTE | 2017-03-02 02:00 | ER Document Report ---
ED Respiratory Problem - General Chief Complaint: Shortness Of Breath Stated Complaint: DIFFICULTY BREATHING Time Seen by Provider: 03/02/17 01:30 Notes: The patient is a 31-year-old female, past medical history anxiety, frequent user of the emergency room, presents with feelings of anxiety and mild shortness of breath. She was switched from Klonopin to Ativan last week and she ran out of her Ativan. She follows with [facility]. Her last menstrual period was 1 week ago. She denies leg swelling, estrogen use, hemoptysis, recent travel, recent surgery, chest pain, nausea, vomiting or back pain. TRAVEL OUTSIDE OF THE [place] IN LAST 30 DAYS: No - Related Data Allergies/Adverse Reactions: ketorolac tromethamine [From Toradol] Allergy (Verified 02/12/17 19:02) meperidine HCl [From Demerol] Allergy (Verified 02/12/17 19:02) metoclopramide HCl [From Reglan] Allergy (Verified 02/12/17 19:02) morphine [Morphine] Allergy (Verified 02/12/17 19:02) tramadol [Tramadol] Allergy (Verified 02/12/17 19:02) Hives hydroxyzine [From Vistaril] Adverse Reaction (Verified 02/12/17 22:32) Anxiety ondansetron HCl [From Zofran] Adverse Reaction (Verified 02/12/17 19:02) VOMITING Past Medical History - General Information source: Patient - Social History Smoking Status: Unknown if Ever Smoked Family History: Reviewed & Not Pertinent - Past Medical History Cardiac Medical History: Reports: Hx Hypertension Neurological Medical History: Reports: Hx Migraine Renal/ Medical History: Denies: Hx Peritoneal Dialysis Psychiatric Medical History: Reports: Hx Anxiety, Hx Attention Deficit Hyperactivity Disorder, Hx Depression, Hx Post Traumatic Stress Disorder Past Surgical History: Reports: Hx Abdominal Surgery - LAPROSCOPY, Hx Gynecologic Surgery - d&c, lap, Other - facial reconstruction - Immunizations Immunizations up to date: Yes Hx Diphtheria, Pertussis, Tetanus Vaccination: Yes - 2010 Review of Systems - Review of Systems Notes: REVIEW OF SYSTEMS: CONSTITUTIONAL: -fevers, -chills EENT: -eye pain, -difficulty swallowing, -nasal congestion CARDIOVASCULAR:-chest pain, -syncope. RESPIRATORY: -cough, +SOB GASTROINTESTINAL: -abdominal pain, - nausea, -vomiting, -diarrhea GENITOURINARY: -dysuria, -hematuria MUSCULOSKELETAL: -back pain, -neck pain SKIN: -rash or skin lesions. HEMATOLOGIC: -easy bruising or bleeding. LYMPHATIC: -swollen, enlarged glands. NEUROLOGICAL: -altered mental status or loss of consciousness, -headache, - neurologic symptoms PSYCHIATRIC: -anxiety, -depression. ALL OTHER SYSTEMS REVIEWED AND NEGATIVE. Physical Exam - Notes Notes: PHYSICAL EXAMINATION: GENERAL: Well-appearing, well-nourished and in no acute distress. HEAD: Atraumatic, normocephalic. EYES: Pupils equal round and reactive to light, extraocular movements intact, sclera anicteric, conjunctiva are normal. ENT: nares patent, oropharynx clear without exudates. Moist mucous membranes. NECK: Normal range of motion, supple without lymphadenopathy LUNGS: Breath sounds clear to auscultation bilaterally and equal. No wheezes rales or rhonchi. HEART: Regular rate and rhythm without murmurs ABDOMEN: Soft, nontender, normoactive bowel sounds. No guarding, no rebound. No masses appreciated. EXTREMITIES: Normal range of motion, no pitting or edema. No cyanosis. NEUROLOGICAL: Cranial nerves grossly intact. Normal speech, normal gait. Normal sensory and motor exams. PSYCH: Anxious. No SI or HI. SKIN: Warm, Dry, normal turgor, no rashes or lesions noted. Course - Re-evaluation Re-evalutation: Patient is in absolutely no respiratory distress. She is PERC negative. EKG and chest x-ray do not show any acute abnormalities. No signs of benzodiazepine withdrawal. Instructed her that the emergency room cannot refill her chronic benzo prescription and that she needs to follow-up with her psychiatrist at [facility]. She understands. - Diagnostic Test Radiology reviewed: Image reviewed, Reports reviewed Radiology results interpreted by me: CXR: NAD - EKG Interpretation by Me EKG shows normal: Sinus rhythm, [place], Intervals, QRS Complexes, ST-T Waves Rate: Normal Discharge - Discharge Clinical Impression: Shortness of breath, Anxiety Condition: Stable Disposition: HOME, SELF-CARE Additional Instructions: SHORTNESS OF BREATH OR DYSPNEA: You were evaluated for shortness of breath, or dyspnea. Dyspnea has many causes, and some are more serious than others. Sometimes it's impossible to diagnose the cause of dyspnea with the tests that are available on an emergency basis. Based on our evaluation today, you do not need hospitalization now. We found no evidence of pneumonia, collapsed lung, blood clots in the lung, tumors , or heart failure. Causes of non-specific dyspnea can include asthma or bronchospasm, hyperventilation, emotional distress, heart disease, emphysema, fibrosis of the lung, and stiffness of the chest wall. In healthy individuals with a single episode, it's sometimes reasonable to do nothing but wait to see if the problem occurs again. Additional tests used to evaluate dyspnea can include cardiac stress testing, echocardiography, pulmonary function testing, CAT scan of the chest, bronchoscopy or pulmonary biopsy. Return if shortness of breath persists or worsens, or if you develop chest pain, fever, cough, confusion, or fainting. NORMAL EXAM AND WORKUP: At this time, your examination and workup show no significant abnormality. No significant abnormal physical findings were noted. All laboratory, EKG, and imaging (x-ray, CT scans, ultrasound) studies that were ordered show no significant abnormality. Although your examination and all studies that were ordered showed no significant abnormal finding, there are no examinations and no studies that are 100% accurate. There is always the possibility that some abnormality could exist and not be detected with physical examination or within the limits and capabilities of laboratory and other studies. You should return or follow up as you were instructed on your visit today for further evaluation if your symptoms do not resolve. FOLLOW-UP CARE: If you have been referred to a physician for follow-up care, call the physician s office for an appointment as you were instructed or within the next two days. If you experience worsening or a significant change in your symptoms, notify the physician immediately or return to the Emergency Department at any time for re-evaluation. Anxiety The physician feels that some of your health problems are being caused by anxiety. Anxiety affects your health in many ways. Anxiety alone can cause palpitations, sweats, chest pains, abdominal pains, shortness of breath, and headaches. It contributes to ulcer disease, high blood pressure, irritable bowel syndrome, and has been shown to cause flare-ups of many other diseases. Anxiety is not a simple disorder to treat. If the anxiety is due to recent life stresses, you may simply need time to "work through" the changes. If the anxiety is due to an underlying unhappiness with yourself or due to psychiatric disturbance, professional help will be needed. Your physician can refer you for further help if needed. Anti-anxiety medication is occasionally given if the stress is acute or if you are having trouble sleeping. Chronic or frequent use of these medications is not a good idea because the body becomes reliant on it, preventing you from dealing with life's normal stresses. Referrals: [facility] [Provider Group] - Follow up as needed
--- NOTE | 2017-03-02 03:15 | RADIOLOGY REPORT (SQ) ---
EXAM DESCRIPTION: CHEST PA/LAT COMPLETED DATE/TIME: 03/02/2017 3:00 am REASON FOR STUDY: sob COMPARISON: Chest x-ray 03/27/2015, abdominal series 02/07/2017. EXAM PARAMETERS: NUMBER OF VIEWS: two views TECHNIQUE: Digital Frontal and Lateral radiographic views of the chest acquired. RADIATION DOSE: NA LIMITATIONS: none FINDINGS: LUNGS AND PLEURA: No consolidation, pneumothorax or pleural effusion. MEDIASTINUM AND HILAR STRUCTURES: No masses or contour abnormalities. HEART AND VASCULAR STRUCTURES: Heart normal size. No evidence for failure. BONES: No acute findings. HARDWARE: None in the chest. IMPRESSION: No acute radiographic finding in the chest. TECHNICAL DOCUMENTATION: JOB ID: [id number] [employer]- All Rights Reserved
[2017-03-02] MEDS ORDERED: DIPHENHYDRAMINE HCL 50 MG CAPSULE PO ONE (03:36)
[2017-03-02 05:16] VITALS: BP 145/85
--- NOTE | 2017-03-02 08:12 | EKG REPORT ---
SEVERITY:- BORDERLINE ECG - SINUS RHYTHM NONSPECIFIC ST-T CHANGES- INFERIOR LEADS : Confirmed by: Dustin Andres MD 02-Mar-2017 08:12:16
== END 2017-03-02 03:35 | disposition home or self-care (01) ==
LOC: ER 01:23
DX: F41.9 Anxiety disorder, unspecified (principal); R06.02 Shortness of breath; I10 Essential (primary) hypertension; Z79.899 Other long term (current) drug therapy; Z88.8 Allergy status to other drugs, medicaments and biological substances; Z88.5 Allergy status to narcotic agent
CPT/HCPCS: 71020; 81025; 93005; 93010; 99284

== ENCOUNTER 2017-03-02 07:17 | Emergency (ER) | payer SELFPAY ==
[2017-03-02] MEDS ORDERED: LORAZEPAM 1 MG TABLET PO ONE (07:34)
--- NOTE | 2017-03-02 07:45 | ER Document Report ---
ED General - General Chief Complaint: Anxiety Stated Complaint: ANXIETY Time Seen by Provider: 03/02/17 07:25 Mode of Arrival: Medic Information source: Patient Notes: Patient is a 31 year old female with a history of anxiety and depression who presents to the ER for the second time in a matter of hours by EMS for anxiety. Patient states that she is out of her Ativan and Adderall and is having a panic attack at this time. Patient denies any chest pain, shortness of breath. Patient states that she is stressed about "life." She denies any suicidal or homicidal ideations. TRAVEL OUTSIDE OF THE [place] IN LAST 30 DAYS: No - Related Data Allergies/Adverse Reactions: ketorolac tromethamine [From Toradol] Allergy (Verified 02/12/17 19:02) meperidine HCl [From Demerol] Allergy (Verified 02/12/17 19:02) metoclopramide HCl [From Reglan] Allergy (Verified 02/12/17 19:02) morphine [Morphine] Allergy (Verified 02/12/17 19:02) tramadol [Tramadol] Allergy (Verified 02/12/17 19:02) Hives hydroxyzine [From Vistaril] Adverse Reaction (Verified 02/12/17 22:32) Anxiety ondansetron HCl [From Zofran] Adverse Reaction (Verified 02/12/17 19:02) VOMITING Past Medical History - General Information source: Patient - Social History Smoking Status: Former Smoker Chew tobacco use (# tins/day): No Frequency of alcohol use: None Drug Abuse: None Family History: Reviewed & Not Pertinent - Past Medical History Cardiac Medical History: Reports: Hx Hypertension Neurological Medical History: Reports: Hx Migraine Renal/ Medical History: Denies: Hx Peritoneal Dialysis Psychiatric Medical History: Reports: Hx Anxiety, Hx Attention Deficit Hyperactivity Disorder, Hx Depression, Hx Post Traumatic Stress Disorder Past Surgical History: Reports: Hx Abdominal Surgery - LAPROSCOPY, Hx Gynecologic Surgery - d&c, lap, Other - facial reconstruction - Immunizations Immunizations up to date: Yes Hx Diphtheria, Pertussis, Tetanus Vaccination: Yes - 2010 Review of Systems - Review of Systems Constitutional: No symptoms reported EENT: No symptoms reported Cardiovascular: No symptoms reported Respiratory: No symptoms reported Gastrointestinal: No symptoms reported Genitourinary: No symptoms reported Female Genitourinary: No symptoms reported Musculoskeletal: No symptoms reported Skin: No symptoms reported Hematologic/Lymphatic: No symptoms reported Neurological/Psychological: See HPI Physical Exam - Vital signs Vitals: Temp Pulse Resp BP Pulse Ox 97.9 F 92 21 H 156/113 H 100 03/02/17 07:22 03/02/17 07:22 03/02/17 07:22 03/02/17 07:22 03/02/17 07:22 - Notes Notes: PHYSICAL EXAMINATION: GENERAL: Anxious, but in no acute distress. HEAD: Atraumatic, normocephalic. EYES: Pupils equal round and reactive to light, extraocular movements intact, sclera anicteric, conjunctiva are normal. NECK: Normal range of motion, supple without lymphadenopathy LUNGS: CTAB and equal. No wheezes rales or rhonchi. HEART: Regular rate and rhythm without murmurs ABDOMEN: Soft, no tenderness. No guarding, no rebound EXTREMITIES: Normal range of motion, no pitting edema. No cyanosis. NEUROLOGICAL: Cranial nerves grossly intact. Normal sensory/motor exams. PSYCH: Anxious SKIN: Warm, Dry, normal turgor, no rashes or lesions noted Course - Vital Signs Vital signs: Temp Pulse Resp BP Pulse Ox 98.0 F 90 18 141/100 H 100 03/02/17 09:31 03/02/17 09:31 03/02/17 09:31 03/02/17 09:31 03/02/17 09:31 Discharge - Discharge Clinical Impression: Anxiety Condition: Stable Disposition: HOME, SELF-CARE Instructions: Anxiety ([facility]) Additional Instructions: Return immediately for any new or worsening symptoms. Follow up with primary care provider, call tomorrow to make followup appointment. Prescriptions: Lorazepam [Ativan 1 mg Tablet] 1 mg PO Q4 PRN #12 tab PRN Reason:
[2017-03-02 09:32] VITALS: BP 141/100
== END 2017-03-02 09:32 | disposition home or self-care (01) ==
LOC: ER 07:17
DX: F41.9 Anxiety disorder, unspecified (principal); T42.4X6A Underdosing of benzodiazepines, initial encounter; Z91.128 Patient's intentional underdosing of medication regimen for other reason; Z91.14 Patient's other noncompliance with medication regimen; I10 Essential (primary) hypertension; Z88.8 Allergy status to other drugs, medicaments and biological substances; Z88.5 Allergy status to narcotic agent; Z87.891 Personal history of nicotine dependence
CPT/HCPCS: 99283

== ENCOUNTER 2017-03-03 01:52 | Emergency (ER) | payer SELFPAY ==
--- NOTE | 2017-03-03 04:01 | ER Document Report ---
ED General - General Mode of Arrival: Ambulatory Information source: Patient TRAVEL OUTSIDE OF THE [place] IN LAST 30 DAYS: No - HPI Associated symptoms: Other - see above - General Chief Complaint: Anxiety Stated Complaint: POSSIBLE ANXIETY Time Seen by Provider: 03/03/17 03:10 Notes: Patient is a 31 year old female who presents to the ED with complaints of worsening anxiety. Patient was seen in the ED yesterday and was given a prescription for Ativan but states she didnt get it filled because she already had a prescription for it. Patient states she started the Ativan today. Patient sees a therapist but cannot get in for an appointment until the of this month. Patient states today she is more anxious than yesterday. Patient denies being on an antidepressant. No other concerns or complaints at this time. (ARACELIS WEISS) - Related Data Allergies/Adverse Reactions: ketorolac tromethamine [From Toradol] Allergy (Verified 02/12/17 19:02) meperidine HCl [From Demerol] Allergy (Verified 02/12/17 19:02) metoclopramide HCl [From Reglan] Allergy (Verified 02/12/17 19:02) morphine [Morphine] Allergy (Verified 02/12/17 19:02) tramadol [Tramadol] Allergy (Verified 02/12/17 19:02) Hives hydroxyzine [From Vistaril] Adverse Reaction (Verified 02/12/17 22:32) Anxiety ondansetron HCl [From Zofran] Adverse Reaction (Verified 02/12/17 19:02) VOMITING Past Medical History - General Information source: Patient - Social History Smoking Status: Unknown if Ever Smoked Family History: Reviewed & Not Pertinent Patient has suicidal ideation: No Patient has homicidal ideation: No - Past Medical History Cardiac Medical History: Reports: Hx Hypertension Neurological Medical History: Reports: Hx Migraine Renal/ Medical History: Denies: Hx Peritoneal Dialysis Psychiatric Medical History: Reports: Hx Anxiety, Hx Attention Deficit Hyperactivity Disorder, Hx Depression, Hx Post Traumatic Stress Disorder Past Surgical History: Reports: Hx Abdominal Surgery - LAPROSCOPY, Hx Gynecologic Surgery - d&c, lap, Other - facial reconstruction - Immunizations Immunizations up to date: Yes Hx Diphtheria, Pertussis, Tetanus Vaccination: Yes - 2010 Review of Systems - Review of Systems Constitutional: No symptoms reported EENT: No symptoms reported Cardiovascular: No symptoms reported Respiratory: No symptoms reported Gastrointestinal: No symptoms reported Genitourinary: No symptoms reported Female Genitourinary: No symptoms reported Musculoskeletal: No symptoms reported Skin: No symptoms reported Hematologic/Lymphatic: No symptoms reported Neurological/Psychological: See HPI, Anxiety Physical Exam - General General appearance: Appears well, Alert In distress: None - HEENT Head: Normocephalic, Atraumatic Eyes: Normal Extraocular movements intact: Yes Pupils: PERRL - Respiratory Respiratory status: No respiratory distress Breath sounds: Normal - Cardiovascular Rhythm: Regular Heart sounds: Normal auscultation Murmur: No - Abdominal Inspection: Normal Distension: No distension Tenderness: Nontender - Back Back: Normal - Extremities General upper extremity: Normal inspection, Normal ROM General lower extremity: Normal inspection, Normal ROM - Neurological Neuro grossly intact: Yes Cognition: Normal Orientation: AAOx4 [place] Coma Scale Eye Opening: Spontaneous [place] Coma Scale Verbal: Oriented Ron Coma Scale Motor: Obeys Commands [place] Coma Scale Total: 15 Speech: Normal - Psychological Associated symptoms: Normal affect, Normal mood - Skin Skin Temperature: Warm Skin Moisture: Dry Skin Color: Normal Course - Re-evaluation Re-evalutation: 03/03/17 04:05 With multiple ED visits lately with chief complaint of anxiety here yesterday given a prescription for Ativan says when she went to the store the pharmacist told her that she already had Ativan she had been taking it since she took a 0.5 today. Says she still feels anxious and her doctor is out of town she is not suicidal homicidal when asked what causes anxiety she has absolutely no idea whatsoever long detailed conversation with her about the fact that medications do not fix anxiety had speak with a therapist and find out what is going on to cause anxiety. Also recommend she be on antidepressant which helps anxiety that she says she cannot take any of those. She has Ativan at home she is in no acute distress she wants me to give her some for sleep she has been on Ambien in the past but cannot afford it. Told her take [id number] Benadryl because she has no ride. Given her information to follow-up outpatient clinic walk-in tomorrow and discussed reasons for ED return sooner ( GLENN SELF) - Vital Signs Vital signs: Temp Pulse Resp BP Pulse Ox 98.4 F 84 18 128/85 H 100 03/03/17 04:25 03/03/17 04:25 03/03/17 04:25 03/03/17 04:25 03/03/17 04:25 Discharge - Discharge Clinical Impression: Anxiety Condition: Stable Disposition: HOME, SELF-CARE Instructions: Anxiety ([facility]) Additional Instructions: Anxiety The physician feels that some of your health problems are being caused by anxiety. Anxiety affects your health in many ways. Anxiety alone can cause palpitations, sweats, chest pains, abdominal pains, shortness of breath, and headaches. It contributes to ulcer disease, high blood pressure, irritable bowel syndrome, and has been shown to cause flare-ups of many other diseases. Anxiety is not a simple disorder to treat. If the anxiety is due to recent life stresses, you may simply need time to "work through" the changes. If the anxiety is due to an underlying unhappiness with yourself or due to psychiatric disturbance, professional help will be needed. Your physician can refer you for further help if needed. Anti-anxiety medication is occasionally given if the stress is acute or if you are having trouble sleeping. Chronic or frequent use of these medications is not a good idea because the body becomes reliant on it, preventing you from dealing with life's normal stresses. Given you information for a walk in clinic tomorrow and will be placed on a depression medication that helps with anxiety and see a therapist return for increasing worsening or new symptoms Scribe Attestation: 03/03/17 04:04 I personally performed the services described in the documentation, reviewed and edited the documentation which was dictated to my scribe in my presence, and accurately records my words and actions. (GLENN SELF) Scribe Documentation - Scribe Written by Moreno:: moreno Aguilar, 03/03/2017, 0401 acting as scribe for :: Shadi
[2017-03-03 04:28] VITALS: BP 128/85
== END 2017-03-03 04:25 | disposition home or self-care (01) ==
LOC: ER 01:52
DX: F41.9 Anxiety disorder, unspecified (principal)
CPT/HCPCS: 99283

== ENCOUNTER 2017-03-11 02:35 | Emergency (ER) | payer SELFPAY ==
[2017-03-11] MEDS ORDERED: DIPHENHYDRAMINE HCL 25 MG CAPSULE PO ONE (04:49)
[2017-03-11] MEDS ORDERED: LISINOPRIL 10 MG TABLET PO ONE (04:49)
--- NOTE | 2017-03-11 04:54 | ER Document Report ---
ED General - General Chief Complaint: Anxiety Stated Complaint: POSSIBLE ANXIETY Time Seen by Provider: 03/11/17 04:03 Mode of Arrival: Ambulatory Information source: Patient Notes: 31-year-old female presents to ED for "anxiety attack tonight. She came to the ED via EMS. She states she has been out of medicine for several hours. She has multiple prescriptions for Ativan at the pharmacy but states she does not have any money to go get them. She has a history of high blood pressure but does not take her medicine. She comes to the emergency room frequently for her anxiety attacks. TRAVEL OUTSIDE OF THE [place] IN LAST 30 DAYS: No - HPI Onset: This evening Quality of pain: No pain Severity: None Pain Level: Denies Associated symptoms: Other - Anxiety, states she has been having hot and cold flashes. Exacerbated by: Denies Relieved by: Denies Similar symptoms previously: Yes Recently seen / treated by doctor: Yes - Related Data Allergies/Adverse Reactions: ketorolac tromethamine [From Toradol] Allergy (Verified 02/12/17 19:02) meperidine HCl [From Demerol] Allergy (Verified 02/12/17 19:02) metoclopramide HCl [From Reglan] Allergy (Verified 02/12/17 19:02) morphine [Morphine] Allergy (Verified 02/12/17 19:02) tramadol [Tramadol] Allergy (Verified 02/12/17 19:02) Hives hydroxyzine [From Vistaril] Adverse Reaction (Verified 02/12/17 22:32) Anxiety ondansetron HCl [From Zofran] Adverse Reaction (Verified 02/12/17 19:02) VOMITING Past Medical History - General Information source: Patient - Social History Smoking Status: Current Some Day Smoker Cigarette use (# per day): Yes - 4-5 cig a day Chew tobacco use (# tins/day): No Smoking Education Provided: Yes - less than 2 min Frequency of alcohol use: None Drug Abuse: None Occupation: none Lives with: Family Family History: Arthritis, DM, Hyperlipidemia, Hypertension Patient has suicidal ideation: No Patient has homicidal ideation: No - Past Medical History Cardiac Medical History: Reports: Hx Hypertension Pulmonary Medical History: Reports: None EENT Medical History: Reports: None Neurological Medical History: Reports: Hx Migraine Endocrine Medical History: Reports: None Renal/ Medical History: Reports: Other - endometriosis Malignancy Medical History: Reports: None GI Medical History: Reports: None Musculoskeltal Medical History: Reports Hx Musculoskeletal Trauma Skin Medical History: Reports None Psychiatric Medical History: Reports: Hx Anxiety, Hx Attention Deficit Hyperactivity Disorder, Hx Depression, Hx Post Traumatic Stress Disorder Traumatic Medical History: Reports: Hx Fractures - nose Infectious Medical History: Reports: None Past Surgical History: Reports: Hx Abdominal Surgery - LAPROSCOPY, Hx Gynecologic Surgery - d&c, lap for endometriosis, Hx Nose Surgery - Reconstruction for fracture - Immunizations Immunizations up to date: Yes Hx Diphtheria, Pertussis, Tetanus Vaccination: Yes - 2010 Review of Systems - Review of Systems Constitutional: No symptoms reported EENT: No symptoms reported Cardiovascular: No symptoms reported Respiratory: No symptoms reported Gastrointestinal: No symptoms reported Genitourinary: No symptoms reported Female Genitourinary: No symptoms reported Musculoskeletal: No symptoms reported Skin: No symptoms reported Hematologic/Lymphatic: No symptoms reported Neurological/Psychological: Anxiety -: Yes All other systems reviewed and negative Physical Exam - Vital signs Vitals: Temp Pulse Resp BP Pulse Ox 98 F 112 H 18 146/114 H 100 03/11/17 02:41 03/11/17 02:41 03/11/17 02:41 03/11/17 02:41 03/11/17 02:41 Interpretation: Normal - General General appearance: Appears well, Alert - HEENT Head: Normocephalic, Atraumatic Eyes: Normal Pupils: PERRL - Respiratory Respiratory status: No respiratory distress Chest status: Nontender Breath sounds: Normal Chest palpation: Normal - Cardiovascular Rhythm: Regular Heart sounds: Normal auscultation Murmur: No - Abdominal Inspection: Normal Distension: No distension Bowel sounds: Normal Tenderness: Nontender Organomegaly: No organomegaly - Back Back: Normal, Nontender - Extremities General upper extremity: Normal inspection, Nontender, Normal color, Normal ROM , Normal temperature General lower extremity: Normal inspection, Nontender, Normal color, Normal ROM , Normal temperature, Normal weight bearing. No: Yovani's sign - Neurological Neuro grossly intact: Yes Cognition: Normal Orientation: AAOx4 [place] Coma Scale Eye Opening: Spontaneous [place] Coma Scale Verbal: Oriented [place] Coma Scale Motor: Obeys Commands [place] Coma Scale Total: 15 Speech: Normal Motor strength normal: LUE, RUE, LLE, RLE Sensory: Normal - Psychological Associated symptoms: Anxious - Skin Skin Temperature: Warm Skin Moisture: Dry Skin Color: Normal Course - Vital Signs Vital signs: Temp Pulse Resp BP Pulse Ox 98 F 112 H 20 142/98 H 98 03/11/17 02:41 03/11/17 02:41 03/11/17 05:21 03/11/17 05:21 03/11/17 05:21 Discharge - Discharge Clinical Impression: Anxiety, non compliant HTN Disposition: HOME, SELF-CARE Instructions: Anxiety ([facility]) Additional Instructions: Anxiety The physician feels that some of your health problems are being caused by anxiety. Anxiety affects your health in many ways. Anxiety alone can cause palpitations, sweats, chest pains, abdominal pains, shortness of breath, and headaches. It contributes to ulcer disease, high blood pressure, irritable bowel syndrome, and has been shown to cause flare-ups of many other diseases. Anxiety is not a simple disorder to treat. If the anxiety is due to recent life stresses, you may simply need time to "work through" the changes. If the anxiety is due to an underlying unhappiness with yourself or due to psychiatric disturbance, professional help will be needed. Your physician can refer you for further help if needed. Anti-anxiety medication is occasionally given if the stress is acute or if you are having trouble sleeping. Chronic or frequent use of these medications is not a good idea because the body becomes reliant on it, preventing you from dealing with life's normal stresses. HIGH BLOOD PRESSURE REQUIRING TREATMENT: Your blood pressure is high. This is called "hypertension." Today's reading was ____142/98 (normal is less than 140/90). Your history and exam suggest that this is not a temporary problem. You need treatment of your blood pressure. If left untreated, high blood pressure greatly increases your risk of heart attack and stroke. Please don't ignore this problem. If you have blood pressure medicine but aren't using it regularly, start taking it again. Some simple things you can do to help are: Get some aerobic exercise for at least 20 minutes on a daily basis. (See your doctor before beginning any new exercise program.) Eat a low-fat diet. Lose excess weight. Avoid salty foods and avoid adding salt to any of the foods you eat. Avoid diet pills, decongestants, "energizing" herbs, and other medicines that elevate blood pressure. There are many different medicines that treat blood pressure. If your medication causes unpleasant side effects, call your doctor. There are others you can try. Treating hypertension is a life-long investment in your health. ANGIOTENSIN CONVERTING ENZYME INHIBITOR MEDICATION: "ОЛЬГА inhibitor" drugs are used to lower high blood pressure (or to reduce the "work" of the heart in patients with heart failure). These drugs block an enzyme that makes your blood vessels constrict and makes you retain salt. The result is lower blood pressure. ОЛЬГА inhibitors cause few side effects. The most common side effect is a dry nagging cough. Occasionally, lightheadedness may occur while you get used to the medicine. Some patients may retain extra potassium (this is a problem if you are taking potassium supplements, potassium-containing salt substitutes, or a potassium-retaining drug such as triamterene, spironolactone, or amiloride) . If you are taking lithium, the lithium level must be rechecked after starting an ОЛЬГА inhibitor. ОЛЬГА inhibitors should NOT be used during . Contact the doctor or return if you develop severe lightheadedness, wheeze , weakness, palpitations or other new symptoms. Keep your appointment with your psychologist in the morning. Please have someone help you to fill your Ativan in the morning. If you cannot afford your Ambien take Benadryl at nighttime for sleep. FOLLOW-UP CARE: If you have been referred to a physician for follow-up care, call the physician s office for an appointment as you were instructed or within the next two days. If you experience worsening or a significant change in your symptoms, notify the physician immediately or return to the Emergency Department at any time for re-evaluation. Prescriptions: Lisinopril 20 mg PO DAILY #30 tablet Forms: Elevated Blood Pressure, Smoking Cessation Education Referrals: [facility] [Provider Group] - Follow up as needed
[2017-03-11 05:23] VITALS: BP 142/98
== END 2017-03-11 05:23 | disposition home or self-care (01) ==
LOC: ER 02:35
DX: F41.9 Anxiety disorder, unspecified (principal); F17.210 Nicotine dependence, cigarettes, uncomplicated; I10 Essential (primary) hypertension; Z91.120 Patient's intentional underdosing of medication regimen due to financial hardship; T42.4X6A Underdosing of benzodiazepines, initial encounter; Z88.6 Allergy status to analgesic agent
CPT/HCPCS: 99283

== ENCOUNTER 2017-03-26 23:03 | Emergency (ER) | payer SELFPAY ==
[2017-03-27 00:11] LABS: APPEARANCE,URINE CLEAR; BILIRUBIN,URINE NEGATIVE (NEGATIVE); GLUCOSE, URINE NEGATIVE (NEGATIVE); KETONES,URINE NEGATIVE (NEGATIVE); LEUKOCYTE ESTERASE,URINE TRACE (NEGATIVE); NITRITE,URINE NEGATIVE (NEGATIVE); PROTEIN,URINE NEGATIVE (NEGATIVE); URINE SPECIFIC GRAVITY 1.014; UROBILINOGEN,URINE NEGATIVE mg/dL (<2.0)
[2017-03-27 01:20] LABS: ABSOLUTE EOSINOPHILS # (AUTO) 0.3 10^3/uL (0.0-0.6); ABSOLUTE LYMPHOCYTES (AUTO) 2.4 10^3/uL (0.5-4.7); ABSOLUTE MONOCYTES (AUTO) 0.6 10^3/uL (0.1-1.4); ABSOLUTE NEUT (AUTO) 1.8 10^3/uL (1.7-8.2); BASOPHILS % (AUTO) 0.4 % (0-2); HEMATOCRIT 32.1 % (36.0-47.0); HEMOGLOBIN 10.5 g/dL (12.0-15.5); HGB HCT DIFFERENCE -0.6; LYMPHOCYTES % (AUTO) 46.8 % (13-45); MEAN CORPUSCULAR HEMOGLOBIN 27.5 pg (27.0-33.4); MEAN CORPUSCULAR HGB CONC 32.5 g/dL (32.0-36.0); MEAN CORPUSCULAR VOLUME 85 fl (80-97); MONOCYTES % (AUTO) 11.7 % (3-13); RED CELL DISTRIBUTION WIDTH 14.5 % (11.5-14.0); SEGMENTED NEUTROPHILS % (AUTO) 35.1 % (42-78); WHITE BLOOD COUNT 5.1 10^3/uL (4.0-10.5)
[2017-03-27 02:03] LABS: ALANINE AMINOTRANSFERASE 28 U/L (9-52); ALBUMIN 4.4 g/dL (3.5-5.0); ALKALINE PHOSPHATASE 87 U/L (38-126); ANION GAP 12 (5-19); ASPARTATE AMINO TRANSFERASE 19 U/L (14-36); BILIRUBIN,DIRECT 0.3 mg/dL (0.0-0.4); BILIRUBIN,TOTAL 0.4 mg/dL (0.2-1.3); BLOOD UREA NITROGEN 10 mg/dL (7-20); CALCIUM 9.4 mg/dL (8.4-10.2); CARBON DIOXIDE 24 mmol/L (22-30); CHLORIDE 109 mmol/L (98-107); CREATININE RESULT 0.78 mg/dL (0.52-1.25); GLUCOSE 87 mg/dL (75-110); LIPASE 74.6 U/L (23-300); POTASSIUM 3.9 mmol/L (3.6-5.0); SODIUM 144.5 mmol/L (137-145); TOTAL PROTEIN 7.5 g/dL (6.3-8.2)
--- NOTE | 2017-03-27 02:31 | RADIOLOGY REPORT (SQ) ---
EXAM DESCRIPTION: CHEST SINGLE VIEW COMPLETED DATE/TIME: 03/27/2017 1:58 am REASON FOR STUDY: sob COMPARISON: Chest x-ray 03/02/2017. EXAM PARAMETERS: NUMBER OF VIEWS: One view. TECHNIQUE: Single frontal radiographic view of the chest acquired. RADIATION DOSE: NA LIMITATIONS: None. FINDINGS: LUNGS AND PLEURA: No consolidation, pneumothorax or pleural effusion. MEDIASTINUM AND HILAR STRUCTURES: No masses. Contour normal. HEART AND VASCULAR STRUCTURES: Heart normal in size. No overt vascular congestion. BONES: No acute findings. HARDWARE: None in the chest. IMPRESSION: No acute radiographic finding in the chest. TECHNICAL DOCUMENTATION: JOB ID: [id number]
--- NOTE | 2017-03-27 03:10 | ER Document Report ---
ED General - General Chief Complaint: Abdominal Pain Stated Complaint: DIFFICULTY BREATHING Time Seen by Provider: 03/27/17 01:19 Notes: Patient is a 31-year-old female who presents with multiple complaints. Patient' s main concern appears to be that she had a fall while in residential landing on her right hip and has had some bruising to the right hip. Does note a dull, constant aching pain to the right hip. Denies any difficulty with ambulation. States this injury occurred approximately 1 week ago. In triage she also complains of abdominal pain although to me she denies any acute or new concerns regarding her chronic daily abdominal pain. Nothing improves or worsens her symptoms. She continues to be able to ambulate without difficulty. She does also complain of some difficulty breathing in triage but again denies this complaint to me. Patient does have a long-standing psychiatric history and admits that she is currently off all medications. She denies any acute suicidal or homicidal ideation. TRAVEL OUTSIDE OF THE [place] IN LAST 30 DAYS: No - Related Data Allergies/Adverse Reactions: ketorolac tromethamine [From Toradol] Allergy (Verified 02/12/17 19:02) meperidine HCl [From Demerol] Allergy (Verified 02/12/17 19:02) metoclopramide HCl [From Reglan] Allergy (Verified 02/12/17 19:02) morphine [Morphine] Allergy (Verified 02/12/17 19:02) tramadol [Tramadol] Allergy (Verified 02/12/17 19:02) Hives hydroxyzine [From Vistaril] Adverse Reaction (Verified 02/12/17 22:32) Anxiety ondansetron HCl [From Zofran] Adverse Reaction (Verified 02/12/17 19:02) VOMITING Past Medical History - General Information source: Patient - Social History Smoking Status: Never Smoker Frequency of alcohol use: None Drug Abuse: None Family History: Arthritis, DM, Hyperlipidemia, Hypertension - Past Medical History Cardiac Medical History: Reports: Hx Hypertension Neurological Medical History: Reports: Hx Migraine Renal/ Medical History: Denies: Hx Peritoneal Dialysis Musculoskeltal Medical History: Reports Hx Musculoskeletal Trauma Psychiatric Medical History: Reports: Hx Anxiety, Hx Attention Deficit Hyperactivity Disorder, Hx Depression, Hx Post Traumatic Stress Disorder Traumatic Medical History: Reports: Hx Fractures - nose Past Surgical History: Reports: Hx Abdominal Surgery - LAPROSCOPY, Hx Gynecologic Surgery - d&c, lap for endometriosis, Hx Nose Surgery - Reconstruction for fracture, Other - facial reconstruction - Immunizations Immunizations up to date: Yes Hx Diphtheria, Pertussis, Tetanus Vaccination: Yes - 2010 Review of Systems - Review of Systems Notes: Constitutional: Negative for fever. HENT: Negative for sore throat. Eyes: Negative for visual changes. Cardiovascular: Negative for chest pain. Respiratory: Negative for shortness of breath. Gastrointestinal: Positive for abdominal pain Genitourinary: Negative for dysuria. Musculoskeletal: Positive for right hip pain Skin: Negative for rash. Neurological: Negative for headaches, weakness or numbness. 10 point ROS negative except as marked above and in HPI. Physical Exam - Vital signs Vitals: Temp Pulse Resp BP Pulse Ox 99.8 F 114 H 12 148/103 H 99 03/26/17 23:18 03/26/17 23:18 03/26/17 23:18 03/26/17 23:18 03/26/17 23:18 Interpretation: Tachycardic Notes: PHYSICAL EXAMINATION: GENERAL: Well-appearing, well-nourished and in no acute distress. HEAD: Atraumatic, normocephalic. EYES: Pupils equal round and reactive to light, extraocular movements intact, sclera anicteric, conjunctiva are normal. ENT: nares patent, oropharynx clear without exudates. Moist mucous membranes. NECK: Normal range of motion, supple without lymphadenopathy LUNGS: Breath sounds clear to auscultation bilaterally and equal. No wheezes rales or rhonchi. HEART: Regular rate and rhythm without murmurs ABDOMEN: Soft, nontender, normoactive bowel sounds. No guarding, no rebound. No masses appreciated. EXTREMITIES: Normal range of motion, no pitting or edema. No cyanosis. Apparent bruising or deformity of the right hip. Full range of motion of the right hip without any difficulty or pain. Able to ambulate with ease NEUROLOGICAL: No focal neurological deficits. Moves all extremities spontaneously and on command. PSYCH: Normal mood, normal affect. SKIN: Warm, Dry, normal turgor, no rashes or lesions noted. Course - Re-evaluation Re-evalutation: 03/27/17 03:10 Patient presents with multiple vague complaints that did not appear to be concerning for any acute life-threatening pathology. Vitals are within normal limits at triage and at time of discharge. Physical examination is unremarkable. Patient has tolerated oral intake without difficulty. Patient was not noted to be in distress at any point during their ER visit. At this time, based on the reassuring evaluation, I do not suspect an acute [place], pulmonary embolus, aortic dissection, acute intra-abdominal pathology, stroke, or sepsis.Will discharge with return precautions and follow-up recommendations. Verbal discharge instructions given a the bedside and opportunity for questions given. Medication warnings reviewed. Patient is in agreement with this plan and has verbalized understanding of return precautions and the need for primary care follow-up in the next 24-72 hours. - Vital Signs Vital signs: Temp Pulse Resp BP Pulse Ox 98.4 F 83 20 124/80 100 03/27/17 03:20 03/27/17 03:20 03/27/17 03:20 03/27/17 03:20 03/27/17 03:20 - Laboratory Result Diagrams: 03/27/17 01:14 03/27/17 01:14 Laboratory results interpreted by me: 03/26/17 03/27/17 03/27/17 23:43 01:14 01:14 Hgb 10.5 L Hct 32.1 L RDW 14.5 H Seg Neutrophils % 35.1 L Lymphocytes % 46.8 H Chloride 109 H Ur Leukocyte Esterase TRACE H - Diagnostic Test Radiology reviewed: Image reviewed, Reports reviewed Radiology results interpreted by me: 03/27/17 03:10 Chest x-ray: No acute infiltrate or pneumothorax - EKG Interpretation by Me Additional EKG results interpreted by me: 03/27/17 03:10 Normal sinus rhythm. Rate 72. No ST elevations or depressions. QTC is 412. Discharge - Discharge Clinical Impression: Abdominal pain Qualifiers: Abdominal location: generalized Qualified Code(s): R10.84 - Generalized abdominal pain Condition: Good Disposition: HOME, SELF-CARE Additional Instructions: You have been seen in the Emergency Department (ED) for abdominal pain. Your evaluation did not identify a clear cause of your symptoms but was generally reassuring. Please follow up with your doctor as soon as possible regarding today's emergent visit and the symptoms that are bothering you. Return to the ED if your abdominal pain worsens or fails to improve, you develop bloody vomiting, bloody diarrhea, you are unable to tolerate fluids due to vomiting, fever greater than 101, or other symptoms that concern you.
[2017-03-27 03:29] VITALS: BP 124/80
--- NOTE | 2017-03-27 08:06 | EKG REPORT ---
SEVERITY:- NORMAL ECG - SINUS RHYTHM : Confirmed by: Dustin Andres MD 27-Mar-2017 08:05:31
== END 2017-03-27 03:20 | disposition home or self-care (01) ==
LOC: ER 23:03
DX: S70.01XA Contusion of right hip, initial encounter (principal); R10.84 Generalized abdominal pain; R10.9 Unspecified abdominal pain; R06.02 Shortness of breath; W19.XXXA Unspecified fall, initial encounter
CPT/HCPCS: 36415; 71010; 80053; 81001; 81025; 83690; 85025; 93005; 93010; 99284

== ENCOUNTER 2017-07-08 14:02 | Emergency (ER) | payer SELFPAY ==
--- NOTE | 2017-07-08 15:13 | ER Document Report ---
ED Medical Screen (RME) - General Mode of Arrival: Ambulatory Information source: Patient TRAVEL OUTSIDE OF THE U.S[place] IN LAST 30 DAYS: No <SAMAN GONSALEZ - Last Filed: 07/08/17 15:28> <SHAILA DIAZ - Last Filed: 07/08/17 15:54> - General Chief Complaint: Vaginal Bleeding Stated Complaint: ANXIETY ISSUES/HEAVY VAGINAL BLEEDING Time Seen by Provider: 07/08/17 15:00 Notes: Patient is a 31 year old female with a history of endometriosis presents to the emergency department complaining of anxiety and heavy bleeding. Patient states that she ran out of her anxiety medication today and went to see her PCP. Her PCP told her to come to the emergency department due to them not being able to see her until Tuesday. Patient states that her period is heavier than normal with blood clots. (SAMAN GONSALEZ) Anxiety medication is Klonopin that she takes 1 mg twice a day but only as needed. States she can only afford to fill 6 pills at a time. (SHAILA DIAZ) - Related Data Allergies/Adverse Reactions: ketorolac tromethamine [From Toradol] Allergy (Verified 07/08/17 14:08) meperidine HCl [From Demerol] Allergy (Verified 07/08/17 14:08) metoclopramide HCl [From Reglan] Allergy (Verified 07/08/17 14:08) morphine [Morphine] Allergy (Verified 07/08/17 14:08) tramadol [Tramadol] Allergy (Verified 07/08/17 14:08) Hives hydroxyzine [From Vistaril] Adverse Reaction (Verified 07/08/17 14:08) Anxiety ondansetron HCl [From Zofran] Adverse Reaction (Verified 07/08/17 14:08) VOMITING Past Medical History - Social History Frequency of alcohol use: None Drug Abuse: None - Past Medical History Cardiac Medical History: Reports: Hx Hypertension Neurological Medical History: Reports: Hx Migraine Renal/ Medical History: Denies: Hx Peritoneal Dialysis Musculoskeltal Medical History: Reports Hx Musculoskeletal Trauma Psychiatric Medical History: Reports: Hx Anxiety, Hx Attention Deficit Hyperactivity Disorder, Hx Depression, Hx Post Traumatic Stress Disorder Traumatic Medical History: Reports: Hx Fractures - nose Past Surgical History: Reports: Hx Abdominal Surgery - LAPROSCOPY, Hx Gynecologic Surgery - d&c, lap for endometriosis, Hx Nose Surgery - Reconstruction for fracture, Other - facial reconstruction - Immunizations Immunizations up to date: Yes Hx Diphtheria, Pertussis, Tetanus Vaccination: Yes - 2010 <SAMAN GONSALEZ - Last Filed: 07/08/17 15:28> Review of Systems - Review of Systems Constitutional: No symptoms reported EENT: No symptoms reported Cardiovascular: No symptoms reported Respiratory: No symptoms reported Gastrointestinal: No symptoms reported Genitourinary: No symptoms reported Female Genitourinary: See HPI, Heavy/abnormal periods Musculoskeletal: No symptoms reported Skin: No symptoms reported Hematologic/Lymphatic: No symptoms reported Neurological/Psychological: See HPI, Anxiety -: Yes All other systems reviewed and negative <SAMAN GONSALEZ - Last Filed: 07/08/17 15:28> Physical Exam - General General appearance: Anxious In distress: None - HEENT Head: Normocephalic, Atraumatic - Respiratory Respiratory status: No respiratory distress Chest status: Tender - reproduced tenderness to palaption on the left costochondral joint on rib 6. Breath sounds: Normal - Cardiovascular Rhythm: Tachycardia Heart sounds: Normal auscultation Murmur: No Friction rub: No Gallop: None auscultated - Abdominal Inspection: Normal Distension: No distension Bowel sounds: Normal Tenderness: Nontender Organomegaly: No organomegaly <SAMAN GONSALEZ - Last Filed: 07/08/17 15:28> <SHAILA DIAZ - Last Filed: 07/08/17 15:54> - Vital signs Vitals: Temp Pulse Resp BP Pulse Ox 98.6 F 123 H 18 136/85 H 100 07/08/17 14:08 07/08/17 14:08 07/08/17 14:08 07/08/17 14:08 07/08/17 14:08 - General Notes: Patient appear very thin. (SAMAN GONSALEZ) Course <SAMAN GONSALEZ - Last Filed: 07/08/17 15:28> - Laboratory Result Diagrams: 07/08/17 15:20 07/08/17 15:20 <SHAILA DIAZ - Last Filed: 07/08/17 15:54> - Re-evaluation Re-evalutation: 07/08/17 15:54 Asked mental health to consult on the patient provide better options for her for chronic anxiety medications than benzodiazepines. (SHAILA DIAZ) - Vital Signs Vital signs: Temp Pulse Resp BP Pulse Ox 98.6 F 123 H 18 136/85 H 100 07/08/17 14:08 07/08/17 14:08 07/08/17 14:08 07/08/17 14:08 07/08/17 14:08 Scribe Documentation - Scribe Written by Scribe:: Nicole Goss, 07/08/2017 15:28 acting as scribe for :: Rufina <SAMAN GONSALEZ - Last Filed: 07/08/17 15:28>
[2017-07-08 15:57] LABS: ABSOLUTE EOSINOPHILS # (AUTO) 0.1 10^3/uL (0.0-0.6); ABSOLUTE LYMPHOCYTES (AUTO) 1.5 10^3/uL (0.5-4.7); ABSOLUTE MONOCYTES (AUTO) 0.5 10^3/uL (0.1-1.4); ABSOLUTE NEUT (AUTO) 1.5 10^3/uL (1.7-8.2); BASOPHILS % (AUTO) 0.4 % (0-2); EOSINOPHILS % (AUTO) 3.3 % (0-6); HEMATOCRIT 34.3 % (36.0-47.0); HEMOGLOBIN 11.5 g/dL (12.0-15.5); HGB HCT DIFFERENCE 0.2; LYMPHOCYTES % (AUTO) 41.3 % (13-45); MEAN CORPUSCULAR HEMOGLOBIN 28.2 pg (27.0-33.4); MEAN CORPUSCULAR HGB CONC 33.7 g/dL (32.0-36.0); MEAN CORPUSCULAR VOLUME 84 fl (80-97); MONOCYTES % (AUTO) 13.2 % (3-13); RED BLOOD COUNT 4.09 10^6/uL (3.72-5.28); RED CELL DISTRIBUTION WIDTH 15.3 % (11.5-14.0); SEGMENTED NEUTROPHILS % (AUTO) 41.8 % (42-78); WHITE BLOOD COUNT 3.6 10^3/uL (4.0-10.5)
[2017-07-08 15:58] LABS: ALANINE AMINOTRANSFERASE 22 U/L (9-52); ALBUMIN 4.6 g/dL (3.5-5.0); ALKALINE PHOSPHATASE 44 U/L (38-126); ANION GAP 15 (5-19); ASPARTATE AMINO TRANSFERASE 16 U/L (14-36); BILIRUBIN,DIRECT 0.3 mg/dL (0.0-0.4); BILIRUBIN,TOTAL 0.5 mg/dL (0.2-1.3); BLOOD UREA NITROGEN 16 mg/dL (7-20); CALCIUM 9.4 mg/dL (8.4-10.2); CARBON DIOXIDE 23 mmol/L (22-30); CHLORIDE 108 mmol/L (98-107); CREATININE RESULT 0.67 mg/dL (0.52-1.25); GLUCOSE 123 mg/dL (75-110); POTASSIUM 4.3 mmol/L (3.6-5.0); SODIUM 145.8 mmol/L (137-145); TOTAL PROTEIN 7.5 g/dL (6.3-8.2)
--- NOTE | 2017-07-08 16:19 | PSYCHOLOGICAL NOTE ---
Psych Note - Psych Note Psych Note: Patient is a 31 year old female with a history of endometriosis presents to the emergency department complaining of anxiety and heavy bleeding. Patient states that she ran out of her anxiety medication today and went to see her PCP. Her PCP told her to come to the emergency department due to them not being able to see her until Tuesday. Patient disclosed she takes klonipin for her anxiety. She continued to disclosed that when she was on anti-depressants in [place] but she became "more depressed." Clinician explained patient she may be able to get on a different medication is more effective for her anxiety that is lower cost and not considered a narcotic. She disclosed she was told Klonipin was an anti- depressant. Clinician explained to patient that Klonipin is not an anti- depressant and it is actually a controlled substance. Patient disclose her doctor at [facility] wanted her on Klonipin but when she ran out and called today and was told she could not be seen until Tuesday and was told to come into the ED if is was urgent. Patient asked for help with her anxiety because she is nauseous and is getting a headache. She then stated if she could not get anything for her anxiety could she please get some Phenergan because she has broken out in a rash. Patient is alert and orientated to person, place, time and circumstance. Mood is dysphoric with flat affect. Patient denies suicidal and homicidal ideation. Delusions are absent and behaviors congruent with intact reality based presentation i.e. organized, linear, rational thinking. Eye contact was well- maintained. Intellectual abilities appear to be within the average range. Attention and concentration are good. Insight, judgment, impulse control are good. Anxiety unspecified Impression\\plan: Patient is psychiatrically clear. Patient patient does not meet IVC criteria per [place] GS 120 2C. And clinician discussed options for a more effective anxiety other than Klonopin. Patient disclosed she has an appointment on Tuesday at [facility] with her provider. Patient appears to be unwilling to consider other options for controlling her anxiety. Patient states she was told Klonopin was antidepressant and stated not know that it was a controlled substance. Dr. Choudhury was consulted on the care management of this patient; attending physician is agreement with recommendations and disposition.
[2017-07-08] MEDS ORDERED: CLONAZEPAM 1 MG TABLET PO ONE (16:31)
--- NOTE | 2017-07-08 16:33 | ER Document Report ---
ED Psych Disorder / Suicide - General Chief Complaint: Vaginal Bleeding Stated Complaint: ANXIETY ISSUES/HEAVY VAGINAL BLEEDING Time Seen by Provider: 07/08/17 15:00 Mode of Arrival: Ambulatory Information source: Patient TRAVEL OUTSIDE OF THE U.S[place] IN LAST 30 DAYS: No - HPI Quality of pain: No pain Normal mood: Yes Associated symptoms: Anxious Similar symptoms previously: Yes Recently seen / treated by doctor: Yes Notes: Patient is a 31-year-old female with a history of anxiety with panic attacks, as well as endometriosis, who presents to the emergency room today having run out of her Klonopin which she uses for her anxiety, and complaining of heavy vaginal bleeding which is typical given her state of endometriosis as well, she does report that she took her last Klonopin this morning, she can usually only afford to get 6 pills at a time, attempted to go to [facility] to see her physician there today who was unable to see her and given her tachycardia advised her to go to the emergency room for evaluation, patient is well-known to this emergency room for anxiety with tachycardia, she does also take Adderall , she reports she has an appointment to follow-up at [facility] on Tuesday and therefore is requesting just enough Klonopin to get her through until then, she is denying any generalized weakness, no pain at the present time, no shortness of breath - Related Data Allergies/Adverse Reactions: ketorolac tromethamine [From Toradol] Allergy (Verified 07/08/17 14:08) meperidine HCl [From Demerol] Allergy (Verified 07/08/17 14:08) metoclopramide HCl [From Reglan] Allergy (Verified 07/08/17 14:08) morphine [Morphine] Allergy (Verified 07/08/17 14:08) tramadol [Tramadol] Allergy (Verified 07/08/17 14:08) Hives hydroxyzine [From Vistaril] Adverse Reaction (Verified 07/08/17 14:08) Anxiety ondansetron HCl [From Zofran] Adverse Reaction (Verified 07/08/17 14:08) VOMITING Past Medical History - General Information source: Patient - Social History Smoking Status: Never Smoker Frequency of alcohol use: None Drug Abuse: None Family History: Arthritis, DM, Hyperlipidemia, Hypertension Patient has suicidal ideation: No Patient has homicidal ideation: No - Past Medical History Cardiac Medical History: Reports: Hx Hypertension Neurological Medical History: Reports: Hx Migraine Renal/ Medical History: Denies: Hx Peritoneal Dialysis Musculoskeltal Medical History: Reports Hx Musculoskeletal Trauma Psychiatric Medical History: Reports: Hx Anxiety, Hx Attention Deficit Hyperactivity Disorder, Hx Depression, Hx Post Traumatic Stress Disorder Traumatic Medical History: Reports: Hx Fractures - nose Past Surgical History: Reports: Hx Abdominal Surgery - LAPROSCOPY, Hx Gynecologic Surgery - d&c, lap for endometriosis, Hx Nose Surgery - Reconstruction for fracture, Other - facial reconstruction - Immunizations Immunizations up to date: Yes Hx Diphtheria, Pertussis, Tetanus Vaccination: Yes - 2010 Review of Systems - Review of Systems Constitutional: No symptoms reported EENT: No symptoms reported Cardiovascular: No symptoms reported Respiratory: No symptoms reported Gastrointestinal: No symptoms reported Genitourinary: No symptoms reported Female Genitourinary: Vaginal bleeding Musculoskeletal: No symptoms reported Skin: No symptoms reported Hematologic/Lymphatic: No symptoms reported Neurological/Psychological: Anxiety -: Yes All other systems reviewed and negative Physical Exam - Vital signs Vitals: Temp Pulse Resp BP Pulse Ox 98.6 F 123 H 18 136/85 H 100 07/08/17 14:08 07/08/17 14:08 07/08/17 14:08 07/08/17 14:08 07/08/17 14:08 Interpretation: Tachycardic - General General appearance: Appears well, Alert - HEENT Head: Normocephalic, Atraumatic Eyes: Normal Pupils: PERRL - Respiratory Respiratory status: No respiratory distress Chest status: Nontender Breath sounds: Normal Chest palpation: Normal - Cardiovascular Rhythm: Regular Heart sounds: Normal auscultation Murmur: No - Abdominal Inspection: Normal Distension: No distension Bowel sounds: Normal Tenderness: Nontender Organomegaly: No organomegaly - Back Back: Normal, Nontender - Extremities General upper extremity: Normal inspection, Nontender, Normal color, Normal ROM , Normal temperature General lower extremity: Normal inspection, Nontender, Normal color, Normal ROM , Normal temperature, Normal weight bearing. No: Yovani's sign - Neurological Neuro grossly intact: Yes Cognition: Normal Orientation: AAOx4 [place] Coma Scale Eye Opening: Spontaneous [place] Coma Scale Verbal: Oriented [place] Coma Scale Motor: Obeys Commands [place] Coma Scale Total: 15 Speech: Normal Motor strength normal: LUE, RUE, LLE, RLE Sensory: Normal - Psychological Associated symptoms: Normal affect, Normal mood - Skin Skin Temperature: Warm Skin Moisture: Dry Skin Color: Normal Course - Re-evaluation Re-evalutation: 07/08/17 16:41 Patient was seen and evaluated by mental health team who recommends for discharge and outpatient follow-up, patient's labs are unremarkable and were discussed with her at bedside, she was given a prescription for 5 Klonopin and advised to follow-up with her mental health provider on Tuesday as scheduled or return if symptoms worsen, patient acknowledges understanding and agreement with this plan - Vital Signs Vital signs: Temp Pulse Resp BP Pulse Ox 98.6 F 123 H 18 136/85 H 100 07/08/17 14:08 07/08/17 14:08 07/08/17 14:08 07/08/17 14:08 07/08/17 14:08 - Laboratory Result Diagrams: 07/08/17 15:20 07/08/17 15:20 Laboratory results interpreted by me: 07/08/17 07/08/17 15:20 15:20 WBC 3.6 L Hgb 11.5 L Hct 34.3 L RDW 15.3 H Seg Neutrophils % 41.8 L Monocytes % 13.2 H Absolute Neutrophils 1.5 L Sodium 145.8 H Chloride 108 H Glucose 123 H - EKG Interpretation by Co EKG shows normal: Sinus rhythm Rate: Tachycardia Discharge - Discharge Clinical Impression: Anxiety, Vaginal bleeding Condition: Stable Disposition: HOME, SELF-CARE Instructions: Anxiety ([facility]), Vaginal Bleeding ([facility]) Additional Instructions: Follow up with your primary care provider in one to 2 days. Return to the emergency room immediately if symptoms worsen or any additional concerns. Prescriptions: Clonazepam [Klonopin 1 mg Tablet] 1 mg PO BID #5 tablet
[2017-07-08 16:43] VITALS: BP 116/74
--- NOTE | 2017-07-08 22:46 | EKG REPORT ---
SEVERITY:- BORDERLINE ECG - SINUS TACHYCARDIA BORDERLINE T WAVE ABNORMALITIES : Confirmed by: Lin Jorge 08-Jul-2017 22:45:32
== END 2017-07-08 16:43 | disposition home or self-care (01) ==
LOC: ER 14:02
DX: F41.9 Anxiety disorder, unspecified (principal); N93.9 Abnormal uterine and vaginal bleeding, unspecified; N80.9 Endometriosis, unspecified
CPT/HCPCS: 36415; 80053; 84703; 85025; 93005; 93010; 99285

== ENCOUNTER 2017-08-03 12:03 | Emergency (ER) | payer SELFPAY ==
[2017-08-03] MEDS ORDERED: PROMETHAZINE HCL INJ 25 MG/1 ML VIAL IV ONE ×2 (12:31→18:42)
[2017-08-03] MEDS ORDERED: HYDROMORPHONE HCL INJ/PF 2 MG/ML AMPULE IV ONE ×2 (12:31→16:33)
[2017-08-03] MEDS ORDERED: NORMAL SALINE 1000 ML 1,000 ML IV ONE (12:31)
--- NOTE | 2017-08-03 12:32 | ER Document Report ---
ED Medical Screen (RME) - General Chief Complaint: Abdominal Pain Stated Complaint: ABDOMINAL PAIN Time Seen by Provider: 08/03/17 12:30 Notes: Patient states since last night she has had flank pain no pain with cramping and diarrhea. She also has urinary urgency and frequency. She denies any vaginal symptoms. She also has nausea. TRAVEL OUTSIDE OF THE U.S. IN LAST 30 DAYS: No - Related Data Allergies/Adverse Reactions: ketorolac tromethamine [From Toradol] Allergy (Verified 08/03/17 12:11) meperidine HCl [From Demerol] Allergy (Verified 08/03/17 12:11) metoclopramide HCl [From Reglan] Allergy (Verified 08/03/17 12:11) morphine [Morphine] Allergy (Verified 08/03/17 12:11) tramadol [Tramadol] Allergy (Verified 08/03/17 12:11) Hives hydroxyzine [From Vistaril] Adverse Reaction (Verified 08/03/17 12:11) Anxiety ondansetron HCl [From Zofran] Adverse Reaction (Verified 08/03/17 12:11) VOMITING Past Medical History - Social History Frequency of alcohol use: None Drug Abuse: None - Past Medical History Cardiac Medical History: Reports: Hx Hypertension Neurological Medical History: Reports: Hx Migraine Renal/ Medical History: Denies: Hx Peritoneal Dialysis Musculoskeltal Medical History: Reports Hx Musculoskeletal Trauma Psychiatric Medical History: Reports: Hx Anxiety, Hx Attention Deficit Hyperactivity Disorder, Hx Depression, Hx Post Traumatic Stress Disorder Traumatic Medical History: Reports: Hx Fractures - nose Past Surgical History: Reports: Hx Abdominal Surgery - LAPROSCOPY, Hx Gynecologic Surgery - d&c, lap for endometriosis, Hx Nose Surgery - Reconstruction for fracture, Other - facial reconstruction - Immunizations Immunizations up to date: Yes Hx Diphtheria, Pertussis, Tetanus Vaccination: Yes - 2010 Physical Exam - Vital signs Vitals: Temp Pulse Resp BP Pulse Ox 98.3 F 91 14 113/80 100 08/03/17 12:10 08/03/17 12:10 08/03/17 12:10 08/03/17 12:10 08/03/17 12:10 Course - Vital Signs Vital signs: Temp Pulse Resp BP Pulse Ox 98.3 F 91 14 113/80 100 08/03/17 12:10 08/03/17 12:10 08/03/17 12:10 08/03/17 12:10 08/03/17 12:10
[2017-08-03 12:59] LABS: APPEARANCE,URINE SLIGHTLY-CLOUDY; BILIRUBIN,URINE NEGATIVE (NEGATIVE); GLUCOSE, URINE NEGATIVE (NEGATIVE); KETONES,URINE NEGATIVE (NEGATIVE); LEUKOCYTE ESTERASE,URINE NEGATIVE (NEGATIVE); NITRITE,URINE NEGATIVE (NEGATIVE); PROTEIN,URINE NEGATIVE (NEGATIVE); UROBILINOGEN,URINE NEGATIVE mg/dL (<2.0)
[2017-08-03 13:24] LABS: ABSOLUTE EOSINOPHILS # (AUTO) 0.1 10^3/uL (0.0-0.6); ABSOLUTE LYMPHOCYTES (AUTO) 1.4 10^3/uL (0.5-4.7); ABSOLUTE MONOCYTES (AUTO) 0.5 10^3/uL (0.1-1.4); ABSOLUTE NEUT (AUTO) 3.8 10^3/uL (1.7-8.2); BASOPHILS % (AUTO) 0.2 % (0-2); EOSINOPHILS % (AUTO) 1.8 % (0-6); HEMATOCRIT 37.3 % (36.0-47.0); HEMOGLOBIN 12.4 g/dL (12.0-15.5); HGB HCT DIFFERENCE -0.1; LYMPHOCYTES % (AUTO) 24.5 % (13-45); MEAN CORPUSCULAR HEMOGLOBIN 27.9 pg (27.0-33.4); MEAN CORPUSCULAR HGB CONC 33.1 g/dL (32.0-36.0); MEAN CORPUSCULAR VOLUME 84 fl (80-97); MONOCYTES % (AUTO) 8.4 % (3-13); RED BLOOD COUNT 4.44 10^6/uL (3.72-5.28); RED CELL DISTRIBUTION WIDTH 15.3 % (11.5-14.0); SEGMENTED NEUTROPHILS % (AUTO) 65.1 % (42-78); WHITE BLOOD COUNT 5.8 10^3/uL (4.0-10.5)
[2017-08-03 13:43] LABS: ALANINE AMINOTRANSFERASE 37 U/L (9-52); ALBUMIN 4.8 g/dL (3.5-5.0); ALKALINE PHOSPHATASE 54 U/L (38-126); ANION GAP 13 (5-19); ASPARTATE AMINO TRANSFERASE 29 U/L (14-36); BILIRUBIN,DIRECT 0.2 mg/dL (0.0-0.4); BILIRUBIN,TOTAL 0.4 mg/dL (0.2-1.3); BLOOD UREA NITROGEN 13 mg/dL (7-20); CALCIUM 9.6 mg/dL (8.4-10.2); CARBON DIOXIDE 26 mmol/L (22-30); CHLORIDE 105 mmol/L (98-107); CREATININE RESULT 0.59 mg/dL (0.52-1.25); GLUCOSE 83 mg/dL (75-110); LIPASE 69.4 U/L (23-300); POTASSIUM 4.8 mmol/L (3.6-5.0); SODIUM 144.2 mmol/L (137-145)
--- NOTE | 2017-08-03 14:08 | ER Document Report ---
ED GI/ - General Chief Complaint: Abdominal Pain Stated Complaint: ABDOMINAL PAIN Time Seen by Provider: 08/03/17 12:30 Notes: Patient is a 31-year-old female who is well-known to our emergency department presents with a chief complaint of right flank pain. States it is a pain in her back that radiates into her groin that she has had since yesterday afternoon. Patient states that she has a history of kidney stones. States it started up in her bra strap and radiated into her belly button, this kept her up last night with nausea and vomiting. States it then progressed to diarrhea and moved into her RLQ. Denies fevers, chills. Admits to urinary frequency and urgency. TRAVEL OUTSIDE OF THE [place] IN LAST 30 DAYS: No - Related Data Allergies/Adverse Reactions: ketorolac tromethamine [From Toradol] Allergy (Verified 08/03/17 12:11) meperidine HCl [From Demerol] Allergy (Verified 08/03/17 12:11) metoclopramide HCl [From Reglan] Allergy (Verified 08/03/17 12:11) morphine [Morphine] Allergy (Verified 08/03/17 12:11) tramadol [Tramadol] Allergy (Verified 08/03/17 12:11) Hives hydroxyzine [From Vistaril] Adverse Reaction (Verified 08/03/17 12:11) Anxiety ondansetron HCl [From Zofran] Adverse Reaction (Verified 08/03/17 12:11) VOMITING Past Medical History - Social History Smoking Status: Current Some Day Smoker Frequency of alcohol use: None Drug Abuse: None Family History: Arthritis, DM, Hyperlipidemia, Hypertension Patient has suicidal ideation: No Patient has homicidal ideation: No - Past Medical History Cardiac Medical History: Reports: Hx Hypertension Neurological Medical History: Reports: Hx Migraine Renal/ Medical History: Denies: Hx Peritoneal Dialysis Musculoskeltal Medical History: Reports Hx Musculoskeletal Trauma Psychiatric Medical History: Reports: Hx Anxiety, Hx Attention Deficit Hyperactivity Disorder, Hx Depression, Hx Post Traumatic Stress Disorder Traumatic Medical History: Reports: Hx Fractures - nose Past Surgical History: Reports: Hx Abdominal Surgery - LAPROSCOPY, Hx Gynecologic Surgery - d&c, lap for endometriosis, Hx Nose Surgery - Reconstruction for fracture, Other - facial reconstruction - Immunizations Immunizations up to date: Yes Hx Diphtheria, Pertussis, Tetanus Vaccination: Yes - 2010 Physical Exam - Vital signs Vitals: Temp Pulse Resp BP Pulse Ox 98.3 F 91 14 113/80 100 08/03/17 12:10 08/03/17 12:10 08/03/17 12:10 08/03/17 12:10 08/03/17 12:10 - Notes Notes: PHYSICAL EXAM GENERAL: Alert, interacts well. LUNGS: Clear to auscultation bilaterally, no wheezes, rales, or rhonchi. No respiratory distress. HEART: Regular rate and rhythm. No murmurs, gallops, or rubs. ABDOMEN: Soft, nondistended, right lower quadrant tenderness. No guarding, rebound, or rigidity.. Bowel sounds present in all 4 quadrants. Back: Right CVA tenderness without any evidence of paralumbar muscular tenderness to palpation. EXTREMITIES: Moves all 4 extremities spontaneously. No edema, radial and dorsalis pedis pulses 2/4 bilaterally. No cyanosis. NEUROLOGICAL: Alert and oriented x4. Normal speech. PSYCH: Normal affect, normal mood. SKIN: Warm, dry, normal turgor. No rashes or lesions noted. Course - Re-evaluation Re-evalutation: 08/03/17 15:37 Patient is a 31-year-old female who presents with right flank pain radiating into her abdomen. Given that patient states that this is consistent with her history of kidney stones CT was ordered. Evidence of hematuria noted on urinalysis. Otherwise CBC stable without evidence of leukocytosis or anemia. No evidence of electrolyte abnormalities or acute renal failure. 08/03/17 18:42 CT did not show any evidence of appendix or kidney stone. Given that patient still has a appendix in place and given history patient's to go for CT with p.o. and IV contrast. 08/03/17 19:12 Normal appendix noted on exam. Patient has not thrown up since she has been in the department. Stable for discharge home. - Vital Signs Vital signs: Temp Pulse Resp BP Pulse Ox 98.3 F 91 14 105/71 100 08/03/17 19:18 08/03/17 12:10 08/03/17 19:18 08/03/17 19:18 08/03/17 19:18 - Laboratory Result Diagrams: 08/03/17 13:11 08/03/17 13:11 Laboratory results interpreted by me: 08/03/17 08/03/17 12:38 13:11 RDW 15.3 H Urine Blood SMALL H - Diagnostic Test Radiology reviewed: Image reviewed, Reports reviewed Discharge - Discharge Clinical Impression: Abdominal pain Qualifiers: Abdominal location: right lower quadrant Qualified Code(s): R10.31 - Right lower quadrant pain Condition: Good Disposition: HOME, SELF-CARE Instructions: Abdominal Pain ([facility]), Diarrhea, Nonspecific ([facility]) Additional Instructions: -Please return to the emergency department with any worsening symptoms such as not able to tolerate anything by mouth, weakness and dizziness. -Please utilize [id number] Imodium to help with your diarrhea. This will help significantly with your discomfort -Please follow-up with the primary care provider noted on your documentation. Prescriptions: Promethazine HCl [Phenergan 25 mg Tablet] 1 - 2 tab PO Q6H PRN #15 tablet PRN Reason: Referrals: [facility] [NO LOCAL MD] - Follow up as needed
[2017-08-03] MEDS ORDERED: DIPHENHYDRAMINE HCL 50 MG/ML VIAL IV ONE (14:30)
--- NOTE | 2017-08-03 14:42 | RADIOLOGY REPORT (SQ) ---
EXAM DESCRIPTION: CT LTD RENAL STONE PROTOCOL ON COMPLETED DATE/TIME: 08/03/2017 2:25 pm REASON FOR STUDY: right flank pain COMPARISON: None. TECHNIQUE: CT scan of the abdomen and pelvis performed without intravenous or oral contrast. Images reviewed with lung, soft tissue, and bone windows. Reconstructed coronal and sagittal MPR images revi ewed. All images stored on PACS. All CT scanners at this facility use dose modulation, iterative reconstruction, and/or weight based d osing when appropriate to reduce radiation dose to as low as reasonably achievable (ALARA). [facility]: Dose Right [facility]: CareDose [facility]: Dose Right [facility]: Teradose 4D [facility]: Smart Shopcade RADIATION DOSE: CT Rad equipment meets quality standard of care and radiation dose reduction techniq ues were employed. CTDIvol: 4.8 mGy. DLP: 259 mGy-cm.mGy. LIMITATIONS: None. FINDINGS: LOWER CHEST: No significant findings. No nodules or infiltrates. NON-CONTRASTED LIVER, SPLEEN, ADRENALS: Evaluation limited by lack of IV contrast. No identified sign ificant masses. PANCREAS: No masses. No peripancreatic inflammatory changes. GALLBLADDER: No identified stones by CT criteria. No inflammatory changes to suggest cholecystitis. RIGHT KIDNEY AND URETER: No suspicious masses. Assessment limited by lack of IV contrast. No signif icant calcifications. No hydronephrosis or hydroureter. LEFT KIDNEY AND URETER: No suspicious masses. Assessment limited by lack of IV contrast. No signifi cant calcifications. No hydronephrosis or hydroureter. AORTA AND RETROPERITONEUM: No aneurysm. No retroperitoneal masses or adenopathy. BOWEL AND PERITONEAL CAVITY: No obvious masses or inflammatory changes. No free fluid. APPENDIX: Not visualized. PELVIS, BLADDER, AND ABDOMINAL WALL:No abnormal masses. No free fluid. Bladder normal. BONES: No significant findings. OTHER: No other significant finding. IMPRESSION: NO SIGNIFICANT OR ACUTE PROCESS IN THE ABDOMEN OR PELVIS. COMMENT: Quality ID # [id number]: Final reports with documentation of one or more dose reduction techniques (e.g., Automated exposure control, adjustment of the mA and/or kV according to patient size, use of iterative reconstruction technique) TECHNICAL DOCUMENTATION: JOB ID: [id number] All Rights Reserved
[2017-08-03] MEDS ORDERED: ACETAMINOPHEN WITH CODEINE #3 TABLET PO ONE (15:12)
--- NOTE | 2017-08-03 18:54 | RADIOLOGY REPORT (SQ) ---
EXAM DESCRIPTION: CT ABD/PELVIS WITH IV ORAL COMPLETED DATE/TIME: 08/03/2017 6:40 pm REASON FOR STUDY: RLQ tenderness, r/o appendicitis COMPARISON: None. TECHNIQUE: CT scan of the abdomen and pelvis performed with intravenous and oral contrast using maria l carlo scanning technique with dynamic intravenous contrast injection. Images reviewed with lung, soft t issue, and bone windows. Reconstructed coronal and sagittal MPR images reviewed. Delayed images for e valuation of the urinary system also acquired. All images stored on PACS. All CT scanners at this facility use dose modulation, iterative reconstruction, and/or weight based d osing when appropriate to reduce radiation dose to as low as reasonably achievable (ALARA). [facility]: Dose Right [facility]: CareDose [facility]: Dose Right [facility]: Teradose 4D [facility]: Red Zebra CONTRAST TYPE AND DOSE: contrast/concentration: Isovue 370.00 mg/ml; Total Contrast Delivered: 58.0 ml; Total Saline Delivered: 40.1 ml RENAL FUNCTION: BUN 13 creatinine 0.59. RADIATION DOSE: CT Rad equipment meets quality standard of care and radiation dose reduction techniq ues were employed. CTDIvol: 4.8 - 5.1 mGy. DLP: 519 mGy-cm.. LIMITATIONS: None. FINDINGS: LOWER CHEST: No significant findings. No nodules or infiltrates. LIVER: Normal size. No masses. No dilated ducts. SPLEEN: Normal size. No focal lesions. PANCREAS: No masses. No significant calcifications. No adjacent inflammation or peripancreatic fluid collections. Pancreatic duct not dilated. GALLBLADDER: No identified stones by CT criteria. No inflammatory changes to suggest cholecystitis. ADRENAL GLANDS: No significant masses or asymmetry. RIGHT KIDNEY AND URETER: No solid masses. No significant calcification. No hydronephrosis or hydroure ter. LEFT KIDNEY AND URETER: No solid masses. No significant calcification. No hydronephrosis or hydrouret er. AORTA AND VESSELS: No aneurysm. No dissection. Renal arteries, SMA, celiac without stenosis. RETROPERITONEUM: No retroperitoneal adenopathy, hemorrhage or masses. BOWEL AND PERITONEAL CAVITY: No obstruction. No visualized masses. No free fluid. No inflammatory ch anges or thickening of bowel wall. APPENDIX: Normal. PELVIS: No significant masses. Normal bladder. No free fluid. ABDOMINAL WALL: No masses. No hernias. BONES: No significant or acute findings. OTHER: No other significant finding. IMPRESSION: NO SIGNIFICANT OR ACUTE FINDINGS IN THE ABDOMEN OR PELVIS. TECHNICAL DOCUMENTATION: JOB ID: [id number] Quality ID # [id number]: Final reports with documentation of one or more dose reduction techniques (e.g., Au tomated exposure control, adjustment of the mA and/or kV according to patient size, use of iterative reconstruction technique) 2010 [employer]- All Rights Reserved
[2017-08-03 19:24] VITALS: BP 105/71
== END 2017-08-03 19:20 | disposition home or self-care (01) ==
LOC: ER 12:03
DX: R10.31 Right lower quadrant pain (principal); R19.7 Diarrhea, unspecified; I10 Essential (primary) hypertension; Z87.442 Personal history of urinary calculi
CPT/HCPCS: 96376; 99284; 96361; 96374; 96375; 36415; 83690; 85025; 81025; 80053; 81001; 87804; 76380; 74177; J1200; J1170; J2550; J7030

== ENCOUNTER 2017-08-06 08:40 | Emergency (ER) | payer SELFPAY ==
[2017-08-06 08:56] VITALS: BP 137/85
[2017-08-06] MEDS ORDERED: CLONAZEPAM 1 MG TABLET PO ONE (09:35)
--- NOTE | 2017-08-06 09:38 | ER Document Report ---
ED General - General Chief Complaint: Medication Refill Stated Complaint: ANXIETY Time Seen by Provider: 08/06/17 09:34 Mode of Arrival: Ambulatory Information source: Patient Notes: Patient is a 31-year-old female who is well-known to this emergency department with a history of anxiety and depression. Patient is very good about following up with her mental health outpatient, however occasionally has issues where her doctor is not in and she cannot get an for a few days after she runs out of medication. This is the case today. Patient has been out of her Klonopin 2 mg and Adderall for 3 days and cannot get in with her doctor until Tuesday, 4 days from now. Patient states that they had dropped her from 30 mg of Adderall to 20 mg of Adderall. She states "I only need enough to get me a couple of days." She is admitting to night sweats. She also felt a small lump in her left breast 2 days ago that she is concerned about. She denies any fevers or chills, redness. She denies suicidal or homicidal thoughts. TRAVEL OUTSIDE OF THE [place] IN LAST 30 DAYS: No - Related Data Allergies/Adverse Reactions: ketorolac tromethamine [From Toradol] Allergy (Verified 08/06/17 08:51) meperidine HCl [From Demerol] Allergy (Verified 08/06/17 08:51) metoclopramide HCl [From Reglan] Allergy (Verified 08/06/17 08:51) morphine [Morphine] Allergy (Verified 08/06/17 08:51) tramadol [Tramadol] Allergy (Verified 08/06/17 08:51) Hives hydroxyzine [From Vistaril] Adverse Reaction (Verified 08/06/17 08:51) Anxiety ondansetron HCl [From Zofran] Adverse Reaction (Verified 08/06/17 08:51) VOMITING Home Medications: Current Home Medications Zolpidem Tartrate [Ambien] 10 mg PO QHS 08/06/17 [History] Past Medical History - General Information source: Patient - Social History Smoking Status: Current Every Day Smoker Chew tobacco use (# tins/day): No Frequency of alcohol use: None Drug Abuse: None Family History: Arthritis, DM, Hyperlipidemia, Hypertension Patient has suicidal ideation: No Patient has homicidal ideation: No - Past Medical History Cardiac Medical History: Reports: Hx Hypertension Neurological Medical History: Reports: Hx Migraine Renal/ Medical History: Denies: Hx Peritoneal Dialysis Musculoskeltal Medical History: Reports Hx Musculoskeletal Trauma Psychiatric Medical History: Reports: Hx Anxiety, Hx Attention Deficit Hyperactivity Disorder, Hx Depression, Hx Post Traumatic Stress Disorder Traumatic Medical History: Reports: Hx Fractures - nose Past Surgical History: Reports: Hx Abdominal Surgery - LAPROSCOPY, Hx Gynecologic Surgery - d&c, lap for endometriosis, Hx Nose Surgery - Reconstruction for fracture, Other - facial reconstruction - Immunizations Immunizations up to date: Yes Hx Diphtheria, Pertussis, Tetanus Vaccination: Yes - 2010 Review of Systems - Review of Systems Constitutional: No symptoms reported EENT: No symptoms reported Cardiovascular: No symptoms reported Respiratory: No symptoms reported Gastrointestinal: No symptoms reported Genitourinary: No symptoms reported Female Genitourinary: No symptoms reported Musculoskeletal: No symptoms reported Skin: No symptoms reported Hematologic/Lymphatic: No symptoms reported Neurological/Psychological: See HPI Physical Exam - Vital signs Vitals: Temp Pulse Resp BP Pulse Ox 97.6 F 87 16 137/85 H 100 08/06/17 08:54 08/06/17 08:54 08/06/17 08:54 08/06/17 08:54 08/06/17 08:54 - Notes Notes: PHYSICAL EXAMINATION: GENERAL: Anxious appearing, in no acute distress. HEAD: Atraumatic, normocephalic. EYES: Pupils equal round and reactive to light, extraocular movements intact, sclera anicteric, conjunctiva are normal. ENT: ear canals without erythema or foreign body, TMs pearly dill with good bony landmarks, nares patent, oropharynx clear without exudates. Moist mucous membranes. NECK: Normal range of motion, supple without lymphadenopathy LUNGS: CTAB and equal. No wheezes rales or rhonchi. HEART: Regular rate and rhythm without murmurs ABDOMEN: Soft, no tenderness. No guarding, no rebound BACK: no vertebral tenderness, normal ROM GI/: no CVA tenderness EXTREMITIES: Normal range of motion, no pitting edema. No cyanosis. NEUROLOGICAL: Cranial nerves grossly intact. Normal sensory/motor exams. PSYCH: Normal mood, normal affect. SKIN: Warm, Dry, normal turgor, no rashes or lesions noted Course - Re-evaluation Re-evalutation: 08/06/17 10:10 Ultrasound could not be performed here without a previous mammogram. I will refer patient to [facility] for the painful lump in her left breast. I do not really appreciate this on exam. I will refill her Klonopin and Adderall for a few days until she can get in with her mental health doctor. - Vital Signs Vital signs: Temp Pulse Resp BP Pulse Ox 97.6 F 87 16 137/85 H 100 08/06/17 08:54 08/06/17 08:54 08/06/17 08:54 08/06/17 08:54 08/06/17 08:54 Discharge - Discharge Clinical Impression: Anxiety Depression Qualifiers: Depression Type: unspecified Qualified Code(s): F32.9 - Major depressive disorder, single episode, unspecified ADHD Qualifiers: Attention deficit-hyperactivity disorder type: unspecified Qualified Code(s): F90.9 - Attention-deficit hyperactivity disorder, unspecified type Condition: Stable Disposition: HOME, SELF-CARE Additional Instructions: Return immediately for any new or worsening symptoms. Follow up with primary care provider, call tomorrow to make followup appointment. Prescriptions: Clonazepam 2 mg PO Q8 PRN #10 tablet PRN Reason: Dextroamphetamine/Amphetamine [Adderall 20 mg Tablet] 1 tab PO DAILY #7 tablet Referrals: [facility] [Provider Group] - Follow up as needed
[2017-08-06 10:54] LABS: AMORPHOUS SEDIMENT,URINE TRACE /HPF; APPEARANCE,URINE CLOUDY; BILIRUBIN,URINE NEGATIVE (NEGATIVE); GLUCOSE, URINE NEGATIVE (NEGATIVE); KETONES,URINE NEGATIVE (NEGATIVE); LEUKOCYTE ESTERASE,URINE NEGATIVE (NEGATIVE); NITRITE,URINE NEGATIVE (NEGATIVE); PROTEIN,URINE NEGATIVE (NEGATIVE); URINE SPECIFIC GRAVITY 1.016; UROBILINOGEN,URINE NEGATIVE mg/dL (<2.0)
== END 2017-08-06 11:12 | disposition home or self-care (01) ==
LOC: ER 08:40
DX: Z76.0 Encounter for issue of repeat prescription (principal); F41.9 Anxiety disorder, unspecified; T42.4X6A Underdosing of benzodiazepines, initial encounter; F90.9 Attention-deficit hyperactivity disorder, unspecified type; T43.626A Underdosing of amphetamines, initial encounter; Z91.128 Patient's intentional underdosing of medication regimen for other reason; Z91.14 Patient's other noncompliance with medication regimen; F32.9 Major depressive disorder, single episode, unspecified; N63.20 Unspecified lump in the left breast, unspecified quadrant; F17.200 Nicotine dependence, unspecified, uncomplicated; I10 Essential (primary) hypertension; Z88.8 Allergy status to other drugs, medicaments and biological substances; Z88.5 Allergy status to narcotic agent
CPT/HCPCS: 81001; 81025; 99283

== ENCOUNTER 2017-08-08 09:33 | Emergency (ER) | payer SELFPAY ==
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
[2017-08-08] MEDS ORDERED: ACETAMINOPHEN 325 MG TABLET PO ONE (11:34)
[2017-08-08] MEDS ORDERED: CODEINE SULF 15 MG TABLET PO ONE (13:01)
[2017-08-08] MEDS ORDERED: CEFTRIAXONE INJ 250 MG VIAL IM ONE (13:09)
[2017-08-08] MEDS ORDERED: METRONIDAZOLE 500 MG TABLET PO ONE (13:09)
[2017-08-08] MEDS ORDERED: ONDANSETRON 4 MG TAB.RAPDIS PO ONE (13:09)
[2017-08-08] MEDS ORDERED: AZITHROMYCIN 250 MG TABLET PO ONE (13:09)
[2017-08-08] MEDS ORDERED: LEVONORGESTREL 1.5 MG TABLET (1 TAB/ER-USE) PO ONE (13:09)
[2017-08-08] MEDS ORDERED: LIDOCAINE 1% INJ-PF (10 MG/ML) 30 ML SDV INJ ONE (13:09)
[2017-08-08 13:22] LABS: APPEARANCE,URINE CLEAR; BILIRUBIN,URINE NEGATIVE (NEGATIVE); GLUCOSE, URINE NEGATIVE (NEGATIVE); KETONES,URINE NEGATIVE (NEGATIVE); LEUKOCYTE ESTERASE,URINE NEGATIVE (NEGATIVE); NITRITE,URINE NEGATIVE (NEGATIVE); PROTEIN,URINE NEGATIVE (NEGATIVE); URINE SPECIFIC GRAVITY 1.004; UROBILINOGEN,URINE NEGATIVE mg/dL (<2.0)
[2017-08-08 13:43] LABS: URINE BARBITURATES SCREEN NEGATIVE; URINE METHADONE SCREEN NEGATIVE; URINE OPIATES LOW NEGATIVE; URINE PHENCYCLIDINE SCREEN NEGATIVE
[2017-08-08 13:47] LABS: ADD HIVPANEL? NO; HIV (1 AND 2) ANTIBODY NEGATIVE (NEGATIVE)
[2017-08-08 14:24] VITALS: BP 139/99
== END 2017-08-08 13:52 | disposition home or self-care (01) ==
LOC: ER 09:33
DX: T74.21XA Adult sexual abuse, confirmed, initial encounter (principal); F32.9 Major depressive disorder, single episode, unspecified; F90.9 Attention-deficit hyperactivity disorder, unspecified type; F41.9 Anxiety disorder, unspecified; I10 Essential (primary) hypertension; F17.200 Nicotine dependence, unspecified, uncomplicated; Z79.899 Other long term (current) drug therapy; Z88.5 Allergy status to narcotic agent; Z88.8 Allergy status to other drugs, medicaments and biological substances; Z59.0 Homelessness
CPT/HCPCS: 99285; 96372; 36415; 87210; 81025; 86592; 81001; 86701; 80307; 87491; 87591; 80074; J3490 ×2; A9270; J0696

== ENCOUNTER 2017-08-16 12:40 | Emergency (ER) | payer SELFPAY ==
[2017-08-16 12:54] VITALS: BP 148/90
[2017-08-16] MEDS ORDERED: CLONAZEPAM 1 MG TABLET PO ONE (13:48)
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
--- NOTE | 2017-08-16 20:32 | EKG REPORT ---
SEVERITY:- BORDERLINE ECG - SINUS ARRHYTHMIA, RATE 60-79 BORDERLINE T ABNORMALITIES, ANT-LAT LEADS : Confirmed by: Naty Ragsdale MD 16-Aug-2017 20:31:23
== END 2017-08-16 14:11 | disposition home or self-care (01) ==
LOC: ER 12:40
DX: F41.9 Anxiety disorder, unspecified (principal); R06.02 Shortness of breath; N63.0 Unspecified lump in unspecified breast; Z79.899 Other long term (current) drug therapy
CPT/HCPCS: 93005; 93010; 99283

== ENCOUNTER 2017-08-16 20:56 | Emergency (ER) | payer SELFPAY ==
[2017-08-16] MEDS ORDERED: ZOLPIDEM TARTRATE 5 MG TABLET PO ONE (22:37)
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
[2017-08-17] MEDS ORDERED: DIPHENHYDRAMINE HCL 50 MG CAPSULE PO ONE (00:02)
[2017-08-17 07:36] VITALS: BP 117/77
[2017-08-17] MEDS ORDERED: CLONAZEPAM 1 MG TABLET PO ONE (12:08)
[2017-08-17] MEDS ORDERED: METHYLPHENIDATE HCL 5 MG TABLET PO ONE (12:14)
--- NOTE | 2017-08-17 12:42 | ER Document Report ---
Doctor's Note Notes: 08/17/17 12:41 Patient is not suicidal or depressed, simply looking for resources. Patient saw social media campaign manager as well as mental health. She has been referred to multiple outpatient resources. Patient was given Klonopin and Adderall prescriptions by her primary psychiatrist, we are unable to give her Adderall here as we do not stock in the hospital so I gave her a single dose of Klonopin and a dose of Ritalin instead. Patient will be discharged home with outpatient resources.
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
[2017-08-17] MEDS ORDERED: ACETAMINOPHEN 325 MG TABLET ONE (13:09)
== END 2017-08-17 13:28 | disposition home or self-care (01) ==
LOC: ER 20:56
DX: F41.9 Anxiety disorder, unspecified (principal); Z59.0 Homelessness; F32.9 Major depressive disorder, single episode, unspecified; N93.9 Abnormal uterine and vaginal bleeding, unspecified
CPT/HCPCS: 99283; J3490

== ENCOUNTER 2017-09-12 10:36 | Emergency (ER) | payer SELFPAY ==
[2017-09-12] MEDS ORDERED: CLONAZEPAM 1 MG TABLET PO ONE (11:19)
[2017-09-12 11:41] LABS: APPEARANCE,URINE CLEAR; BILIRUBIN,URINE NEGATIVE (NEGATIVE); COLOR,URINE STRAW; GLUCOSE, URINE NEGATIVE (NEGATIVE); KETONES,URINE NEGATIVE (NEGATIVE); LEUKOCYTE ESTERASE,URINE TRACE (NEGATIVE); NITRITE,URINE NEGATIVE (NEGATIVE); PROTEIN,URINE NEGATIVE (NEGATIVE); URINE SPECIFIC GRAVITY 1.003; UROBILINOGEN,URINE NEGATIVE mg/dL (<2.0)
--- NOTE | 2017-09-12 12:00 | ER Document Report ---
ED General - General Chief Complaint: Breathing Difficulty Stated Complaint: ANXIETY Time Seen by Provider: 09/12/17 11:19 Mode of Arrival: Ambulatory Information source: Patient Notes: Patient presents complain of left-sided chest pain. States it started today. She states that it started after she became upset about missing her doctor's appointment. She states she has a history of anxiety and this does feel like her anxiety. She states she is currently out of all of her medications. Patient states she is also noticed a lump in her left breast. She states this is been there for several months. It is painful when she touches it. Nothing is making the pain feel better or worse. There is no significant radiation of the pain. There is been no nipple discharge. No cough cold or congestion. No previous history of cardiac disease. No nausea vomiting or diarrhea. No significant shortness of breath. Pain is been mild to moderate and intermittent. She has not had a menstrual period since last year. TRAVEL OUTSIDE OF THE [place] IN LAST 30 DAYS: No - Related Data Allergies/Adverse Reactions: ketorolac tromethamine [From Toradol] Allergy (Verified 09/12/17 11:16) meperidine HCl [From Demerol] Allergy (Verified 09/12/17 11:16) metoclopramide HCl [From Reglan] Allergy (Verified 09/12/17 11:16) morphine [Morphine] Allergy (Verified 09/12/17 11:16) tramadol [Tramadol] Allergy (Verified 09/12/17 11:16) Hives hydroxyzine [From Vistaril] Adverse Reaction (Verified 09/12/17 11:16) Anxiety ondansetron HCl [From Zofran] Adverse Reaction (Verified 09/12/17 11:16) VOMITING Past Medical History - General Information source: Patient - Social History Smoking Status: Current Every Day Smoker Chew tobacco use (# tins/day): No Frequency of alcohol use: None Drug Abuse: None Family History: Arthritis, DM, Hyperlipidemia, Hypertension Patient has suicidal ideation: No Patient has homicidal ideation: No - Past Medical History Cardiac Medical History: Reports: Hx Hypertension Neurological Medical History: Reports: Hx Migraine Renal/ Medical History: Denies: Hx Peritoneal Dialysis Musculoskeltal Medical History: Reports Hx Musculoskeletal Trauma Psychiatric Medical History: Reports: Hx Anxiety, Hx Attention Deficit Hyperactivity Disorder, Hx Depression, Hx Post Traumatic Stress Disorder Traumatic Medical History: Reports: Hx Fractures - nose Past Surgical History: Reports: Hx Abdominal Surgery - LAPROSCOPY, Hx Gynecologic Surgery - d&c, lap for endometriosis, Hx Nose Surgery - Reconstruction for fracture, Other - facial reconstruction - Immunizations Immunizations up to date: Yes Hx Diphtheria, Pertussis, Tetanus Vaccination: Yes - 2010 Review of Systems - Review of Systems Constitutional: Malaise, Weakness. denies: Chills, Fever Cardiovascular: Chest pain, Palpitations Respiratory: denies: Cough, Short of breath -: Yes All other systems reviewed and negative Physical Exam - Vital signs Vitals: Temp Pulse Resp BP Pulse Ox 98 F 95 16 139/97 H 95 09/12/17 10:41 09/12/17 10:41 09/12/17 10:41 09/12/17 10:41 09/12/17 10:41 Interpretation: Hypertensive - General General appearance: Appears well, Alert In distress: None - HEENT Head: Normocephalic, Atraumatic Eyes: Normal Pupils: PERRL - Respiratory Respiratory status: No respiratory distress Chest status: Nontender Breath sounds: Normal Chest palpation: Other - Patient's left breast was examined by me with a nurse in the room. I do not appreciate any significant abnormalities on inspection or palpation. I was not able to feel the mass that the patient states she appreciates on her self-exam. - Cardiovascular Rhythm: Regular Heart sounds: Normal auscultation Murmur: No - Abdominal Inspection: Normal Distension: No distension Bowel sounds: Normal Tenderness: Nontender Organomegaly: No organomegaly - Back Back: Normal, Nontender - Extremities General upper extremity: Normal inspection, Nontender, Normal color, Normal ROM , Normal temperature General lower extremity: Normal inspection, Nontender, Normal color, Normal ROM , Normal temperature, Normal weight bearing. No: Yovani's sign - Neurological Neuro grossly intact: Yes Cognition: Normal Orientation: AAOx4 [place] Coma Scale Eye Opening: Spontaneous Ron Coma Scale Verbal: Oriented [place] Coma Scale Motor: Obeys Commands [place] Coma Scale Total: 15 Speech: Normal Motor strength normal: LUE, RUE, LLE, RLE Sensory: Normal - Psychological Associated symptoms: Normal affect, Normal mood - Skin Skin Temperature: Warm Skin Moisture: Dry Skin Color: Normal Course - Re-evaluation Re-evalutation: 09/12/17 12:04 I called over to [facility] and discussed the patient's care with them. They state they will see the patient today in the office. - Vital Signs Vital signs: Temp Pulse Resp BP Pulse Ox 98 F 95 16 139/97 H 95 09/12/17 10:41 09/12/17 10:41 09/12/17 10:41 09/12/17 10:41 09/12/17 10:41 - Laboratory Laboratory results interpreted by me: 09/12/17 10:45 Ur Leukocyte Esterase TRACE H - EKG Interpretation by Me EKG shows normal: Sinus rhythm Rate: Normal Rhythm: NSR [place]/QRS: No: Right axis deviation, Left axis deviation Discharge - Discharge Clinical Impression: Anxiety Condition: Stable Disposition: HOME, SELF-CARE Instructions: Anxiety ([facility]) Additional Instructions: Please call the [facility] as soon as possible to arrange for a follow-up appointment. At this appointment please discussed the mass that you feel in your left breast and discuss a mammogram. If you are unable to get into the [facility] for an evaluation of a left breast mass in the next 2 weeks, then please return to the emergency department for further evaluation. Please go straight to the offices of [facility], where your physician is. They state they will see you today. Prescriptions: Lisinopril/Hydrochlorothiazide [Lisinopril-Hctz 10-12.5 mg Tab] 1 each PO DAILY #30 tablet Forms: Elevated Blood Pressure
[2017-09-12 12:20] VITALS: BP 131/84
--- NOTE | 2017-09-12 23:23 | EKG REPORT ---
SEVERITY:- NORMAL ECG - SINUS RHYTHM : Confirmed by: Lin Jorge 12-Sep-2017 23:23:31
== END 2017-09-12 12:21 | disposition home or self-care (01) ==
LOC: ER 10:36
DX: F41.9 Anxiety disorder, unspecified (principal); R07.9 Chest pain, unspecified; N64.4 Mastodynia; I10 Essential (primary) hypertension; R53.1 Weakness; R53.83 Other fatigue; R00.2 Palpitations; F17.200 Nicotine dependence, unspecified, uncomplicated; Z88.5 Allergy status to narcotic agent
CPT/HCPCS: 81001; 81025; 93005; 93010; 99284

== ENCOUNTER 2017-09-18 18:51 | Emergency (ER) | payer SELFPAY ==
[2017-09-18] MEDS ORDERED: DIPHENHYDRAMINE HCL 50 MG/ML VIAL IV ONE (19:23)
[2017-09-18] MEDS ORDERED: NORMAL SALINE 1000 ML 1,000 ML IV ONE (19:23)
[2017-09-18] MEDS ORDERED: PROMETHAZINE HCL 25 MG SUPP.RECT PR ONE (19:23)
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
[2017-09-18 20:06] LABS: APPEARANCE,URINE CLEAR; BILIRUBIN,URINE NEGATIVE (NEGATIVE); COLOR,URINE YELLOW; GLUCOSE, URINE NEGATIVE (NEGATIVE); KETONES,URINE NEGATIVE (NEGATIVE); LEUKOCYTE ESTERASE,URINE NEGATIVE (NEGATIVE); NITRITE,URINE NEGATIVE (NEGATIVE); PROTEIN,URINE NEGATIVE (NEGATIVE); URINE SPECIFIC GRAVITY 1.018; UROBILINOGEN,URINE NEGATIVE mg/dL (<2.0)
[2017-09-18 20:20] LABS: URINE AMPHETAMINES SCREEN NEGATIVE; URINE BARBITURATES SCREEN NEGATIVE; URINE BENZODIAZEPINES SCREEN NEGATIVE; URINE COCAINE SCREEN NEGATIVE; URINE MARIJUANA (THC) SCREEN NEGATIVE; URINE METHADONE SCREEN NEGATIVE; URINE PHENCYCLIDINE SCREEN NEGATIVE
[2017-09-18 20:22] LABS: ABSOLUTE EOSINOPHILS # (AUTO) 0.2 10^3/uL (0.0-0.6); ABSOLUTE LYMPHOCYTES (AUTO) 2.1 10^3/uL (0.5-4.7); ABSOLUTE MONOCYTES (AUTO) 0.5 10^3/uL (0.1-1.4); ABSOLUTE NEUT (AUTO) 1.8 10^3/uL (1.7-8.2); BASOPHILS % (AUTO) 0.4 % (0-2); EOSINOPHILS % (AUTO) 5.2 % (0-6); HEMATOCRIT 31.7 % (36.0-47.0); HEMOGLOBIN 10.2 g/dL (12.0-15.5); MEAN CORPUSCULAR VOLUME 84 fl (80-97); MONOCYTES % (AUTO) 11.5 % (3-13); PLATELET COUNT 171 10^3/uL (150-450); RED BLOOD COUNT 3.76 10^6/uL (3.72-5.28); RED CELL DISTRIBUTION WIDTH 14.9 % (11.5-14.0); SEGMENTED NEUTROPHILS % (AUTO) 38.9 % (42-78); TOTAL CELLS COUNTED % (AUTO) 100 %; WHITE BLOOD COUNT 4.7 10^3/uL (4.0-10.5)
[2017-09-18 20:42] LABS: ALANINE AMINOTRANSFERASE 34 U/L (9-52); ALBUMIN 4.3 g/dL (3.5-5.0); ALKALINE PHOSPHATASE 64 U/L (38-126); ANION GAP 9 (5-19); ASPARTATE AMINO TRANSFERASE 22 U/L (14-36); BILIRUBIN,DIRECT 0.2 mg/dL (0.0-0.4); BILIRUBIN,TOTAL 0.3 mg/dL (0.2-1.3); BLOOD UREA NITROGEN 16 mg/dL (7-20); CALCIUM 9.5 mg/dL (8.4-10.2); CARBON DIOXIDE 26 mmol/L (22-30); CHLORIDE 108 mmol/L (98-107); GLUCOSE 90 mg/dL (75-110); POTASSIUM 4.2 mmol/L (3.6-5.0); TOTAL PROTEIN 7.1 g/dL (6.3-8.2)
[2017-09-18 20:43] LABS: ACETAMINOPHEN < 10 ug/mL (10-30); ALCOHOL < 10 mg/dL (NONE DETECTED); SALICYLATE < 1.0 mg/dL (2.0-20.0)
[2017-09-18] MEDS ORDERED: PROMETHAZINE HCL INJ 25 MG/1 ML VIAL IV ONE (20:58)
[2017-09-18] MEDS ORDERED: LORAZEPAM INJ 2 MG/1 ML VIAL IV ONE ×2 (22:55→23:00)
--- NOTE | 2017-09-19 01:31 | EKG REPORT ---
SEVERITY:- BORDERLINE ECG - SINUS RHYTHM SHORT TX INTERVAL, ACCELERATED AV CONDUCTION : Confirmed by: Naty Ragsdale MD 19-Sep-2017 01:30:30
[2017-09-19] MEDS ORDERED: DIPHENHYDRAMINE HCL 50 MG/ML VIAL IV ONE (04:57)
[2017-09-19] MEDS ORDERED: PROMETHAZINE HCL INJ 25 MG/1 ML VIAL IV ONE (04:57)
[2017-09-19] MEDS ORDERED: ACETAMINOPHEN 325 MG TABLET PO ONE (04:58)
[2017-09-19 08:50] VITALS: BP 120/75
--- NOTE | 2017-09-19 09:21 | PSYCHOLOGICAL NOTE ---
Psych Note - Psych Note Psych Note: Reason for Consult: Suicidal Ideation Consents given: None Patient is a 31-year-old female who presented to the Emergency Department with suicidal ideation and a history of anxiety. Patient stated her provider ([facility]) discontinued her Adderall prescription and prescribed her Latuda 40mg daily. Patient stated she was having suicidal ideation. Patient was unable to identify what suicidal thoughts she was having and denied having a plan, intent or access to means. Patient stated she has a headache and nausea. She requested IV phenegran and "something stronger than Tylenol." Patient indicated she had only slept one hour the previous night. Patient reported she had an appointment with her established provider on 09.27.17 for a follow up. Patient stated she wasn't able to focus because they had discontinued her Adderall. Patient stated she wanted this provider to write a prescription for the Aderall. Provider informed patient that she would need to have a discussion with her established provider regarding her Aderall prescription. This lumber mover asked about the patient's living situation as she was homeless during her last visit to the Emergency Department. Patient stated she was living with a friend at [address] [place] [address]. It should be noted, this patient has been seen in this Emergency Department 14 times in the last 6 months. Patient was alert and oriented to person, place, time and circumstance. Mood was calm with congruent affect. She did not appear to be responding to internal stimuli as evidenced by appropriate eye contact and engaging in conversation. Thought processes were linear, rational and organized. Conversational speech was within normal limits for rate, prosody and tone. Intellectual abilities were estimated within average range. Attention and concentration were normal. Insight, judgment and impulse control were fair. 1. 300.00 (F41.9) Unspecified Anxiety Disorder, per patient report Impression/Plan: Recommend rescind IVC. Patient is psychiatrically clear. Patient does not meet [place] G.S IVC 122C criteria. Patient endorsed vague suicidal ideation with no plan, intent or means. She is not considered a danger to herself or others at this time. Patient's request for specific medications indicates she is possibly drug seeking. No delusions were noted. Patient was recommended to follow up with her provider, [facility], for scheduled outpatient therapies and medication management. Dr. Choudhury was consulted in the care and management of this patient. ED physician in agreement with recommendation and disposition.
--- NOTE | 2017-09-22 08:59 | EKG REPORT ---
SEVERITY:- BORDERLINE ECG - SINUS RHYTHM SHORT UT INTERVAL, ACCELERATED AV CONDUCTION : Confirmed on behalf of: Dustin Andres MD 22-Sep-2017 08:58:29
== END 2017-09-19 08:50 | disposition home or self-care (01) ==
LOC: ER 18:51
DX: R45.851 Suicidal ideations (principal); F32.9 Major depressive disorder, single episode, unspecified; I10 Essential (primary) hypertension; F41.9 Anxiety disorder, unspecified; Z59.0 Homelessness
CPT/HCPCS: 96376; 99285; 96361; 96374; 96375; 36415; 80307 ×4; 84703; 85025; 80053; 81001; 93005; J1200 ×2; J2060; J2550 ×2; J3490; J7030; 93010

== ENCOUNTER 2017-09-19 13:53 | Emergency (ER) | payer SELFPAY ==
[2017-09-19 14:54] VITALS: BP 115/65
--- NOTE | 2017-09-19 15:06 | ER Document Report ---
ED General - General Mode of Arrival: Ambulatory Information source: Patient, [facility] Records TRAVEL OUTSIDE OF THE [place] IN LAST 30 DAYS: No - HPI Onset: Just prior to arrival Onset/Duration: Intermittent Quality of pain: No pain Severity: None Pain Level: Denies Associated symptoms: None Exacerbated by: Denies Relieved by: Denies Similar symptoms previously: Yes Recently seen / treated by doctor: Yes - General Chief Complaint: Suicidal Ideation Stated Complaint: PSYCH EVAL Time Seen by Provider: 09/19/17 14:13 Notes: 31-year-old female history of drug-seeking behavior who has been evaluated in the emergency department 14 times for previous "suicidal" complaints presents with request for Adderall and pain medication. Patient was seen this morning and discharged went to her psychiatrist's office did not get seen (DIDI BANDA) - Related Data Allergies/Adverse Reactions: ketorolac tromethamine [From Toradol] Allergy (Verified 09/12/17 11:16) meperidine HCl [From Demerol] Allergy (Verified 09/12/17 11:16) metoclopramide HCl [From Reglan] Allergy (Verified 09/12/17 11:16) morphine [Morphine] Allergy (Verified 09/12/17 11:16) tramadol [Tramadol] Allergy (Verified 09/12/17 11:16) Hives hydroxyzine [From Vistaril] Adverse Reaction (Verified 09/12/17 11:16) Anxiety ondansetron HCl [From Zofran] Adverse Reaction (Verified 09/12/17 11:16) VOMITING Past Medical History - Social History Smoking Status: Current Every Day Smoker Cigarette use (# per day): Yes Chew tobacco use (# tins/day): No Smoking Education Provided: No Family History: Arthritis, DM, Hyperlipidemia, Hypertension Patient has suicidal ideation: Yes Patient has homicidal ideation: No - Past Medical History Cardiac Medical History: Reports: Hx Hypertension Neurological Medical History: Reports: Hx Migraine Renal/ Medical History: Denies: Hx Peritoneal Dialysis Musculoskeltal Medical History: Reports Hx Musculoskeletal Trauma Psychiatric Medical History: Reports: Hx Anxiety, Hx Attention Deficit Hyperactivity Disorder, Hx Bipolar Disorder, Hx Depression, Hx Post Traumatic Stress Disorder Traumatic Medical History: Reports: Hx Fractures - nose Past Surgical History: Reports: Hx Abdominal Surgery - LAPROSCOPY, Hx Gynecologic Surgery - d&c, lap for endometriosis, Hx Nose Surgery - Reconstruction for fracture, Other - facial reconstruction - Immunizations Immunizations up to date: Yes Hx Diphtheria, Pertussis, Tetanus Vaccination: Yes - 2010 Review of Systems - Review of Systems Notes: REVIEW OF SYSTEMS: CONSTITUTIONAL : Denies fever, chills, or sweats. Denies recent illness. EENT: Denies eye, ear, throat, or mouth pain or symptoms. Denies nasal or sinus congestion or discharge. Denies throat, tongue, or mouth swelling or difficulty swallowing. CARDIOVASCULAR: Denies chest pain. Denies palpitations or racing or irregular heart beat. Denies ankle edema. RESPIRATORY: Denies cough, cold, or chest congestion. Denies shortness of breath, difficulty breathing, or wheezing. GASTROINTESTINAL: Denies abdominal pain or distention. Denies nausea, vomiting , or diarrhea. Denies blood in vomitus, stools, or per rectum. Denies black, tarry stools. Denies constipation. GENITOURINARY: Denies difficulty urinating, painful urination, burning, frequency, blood in urine, or discharge. FEMALE GENITOURINARY: Denies vaginal bleeding, heavy or abnormal periods, irregular periods. Denies vaginal discharge or odor. MUSCULOSKELETAL: Denies back or neck pain or stiffness. Denies joint pain or swelling. SKIN: Denies rash, lesions or sores. HEMATOLOGIC : Denies easy bruising or bleeding. LYMPHATIC: Denies swollen, enlarged glands. NEUROLOGICAL: Denies confusion or altered mental status. Denies passing out or loss of consciousness. Denies dizziness or lightheadedness. Denies headache. Denies weakness or paralysis or loss of use of either side. Denies problems with gait or speech. Denies sensory loss, numbness, or tingling. Denies seizures. PSYCHIATRIC: Admits to suicidal ideation vague with no plan ALL OTHER SYSTEMS REVIEWED AND NEGATIVE. PHYSICAL EXAMINATION: GENERAL: Well-appearing, well-nourished and in no acute distress. HEAD: Atraumatic, normocephalic. EYES: Pupils equal round and reactive to light, extraocular movements intact, conjunctiva are normal. ENT: Nares patent, oropharynx clear without exudates. Moist mucous membranes. NECK: Normal range of motion, supple without lymphadenopathy LUNGS: Breath sounds clear to auscultation bilaterally and equal. No wheezes rales or rhonchi. HEART: Regular rate and rhythm without murmurs ABDOMEN: Soft, nontender, nondistended abdomen. No guarding, no rebound. No masses appreciated. Female : deferred Musculoskeletal: Normal range of motion, no pitting or edema. No cyanosis. NEUROLOGICAL: Cranial nerves grossly intact. Normal speech, normal gait. Normal sensory, motor exams PSYCH: Aggressive angry SKIN: Warm, Dry, normal turgor, no rashes or lesions noted. Dictation was performed using [employer] voice recognition software (DIDI BANDA) - Vital signs Vitals: Temp Pulse Resp BP Pulse Ox 98.0 F 80 16 115/65 100 09/19/17 14:19 09/19/17 14:19 09/19/17 14:19 09/19/17 14:19 09/19/17 14:19 Course - Re-evaluation Re-evalutation: 09/19/17 15:24 It appears patient has a worn out for her rest, this may explain why she keeps coming to the emergency department, she has been evaluated and is medically stable 09/19/17 15:24 And will be discharged with police involvement (DIDI BANDA) - Vital Signs Vital signs: Temp Pulse Resp BP Pulse Ox 98.0 F 80 16 115/65 100 09/19/17 14:19 09/19/17 14:19 09/19/17 14:19 09/19/17 14:19 09/19/17 14:19 09/19/17 15:12 Patient was evaluated by myself and by mental health, we note that the patient is in no distress appears well has no obvious attempts for suicide behavior, it is noted that the patient does have quite extensive drug-seeking behavior and will not be given any benzos. I believe patient is stable to be discharged After performing a Medical Screening Examination, I estimate there is LOW risk for any life threatening mental health issues. At this time the patient looks extremely well and has not attempted severe self harm. I have reevaluated this patient multiple times and no significant life threatening changes are noted. The patient and I have discussed the diagnosis and risks, and we agree with discharging home with close follow-up with the understanding that symptoms and presentations can change. We also discussed returning to the Emergency Department immediately if new or worsening symptoms occur. We have discussed the symptoms which are most concerning (hallucinations, thoughts or actions of self harm or harm to others) that necessitate immediate return. (DIDI BANDA) Discharge - Discharge Clinical Impression: Drug-seeking behavior, Suicidal ideation Condition: Stable Disposition: HOME, SELF-CARE Additional Instructions: DEPRESSION: Your evaluation reveals that you have mental depression. While symptoms may be vague, they often include disturbance of sleep, fatigue, loss of appetite , and general loss of interest in life. While depression may be a side effect of drugs, or a reaction to a major change in your life, many cases have no known cause. If depression is acute, and related to a major loss in your life, you can expect it to clear completely with time. If you have been depressed a long time , are prone to repeated bouts of depression or low mood, or have been thinking of suicide, get help. Depression can be treated with anti-depressant medication and counselling. Long-term depression will often take a few weeks to clear, even with appropriate medication. Follow-up care is important. SUICIDAL IDEATION: Suicidal ideation is a common medical term for thoughts about suicide, which may be as detailed as a formulated plan, without the suicidal act itself. Although most people who undergo suicidal ideation do not commit suicide, some go on to make suicide attempts. The range of suicidal ideation varies greatly from fleeting to detailed planning, role playing, and unsuccessful attempts. While thoughts about suicide are common, most people do not carry out serious actions to commit suicide. Based upon your evaluation and discussion with you, we do not believe you are currently at risk to act upon your thoughts of suicide. You have agreed to return to the Emergency Department, at any time , if you feel inclined to act upon your suicidal thoughts. FOLLOW-UP CARE: Please follow up with your established provider-[facility]-for continued outpatient therapy and medication management. If you experience worsening or a significant change in your symptoms, notify the physician immediately or return to the Emergency Department at any time for re-evaluation. Referrals: [facility] [Outside] - Follow up as needed
--- NOTE | 2017-09-19 15:51 | PSYCHOLOGICAL NOTE ---
Psych Note - Psych Note Psych Note: Reason for Consult: Suicidal Ideation Consents given: None Patient is a 31-year-old female who presented to the Emergency Department with suicidal ideation and a history of anxiety. Patient was discharged this morning from this Emergency Department and encouraged to go to her provider to continue treatment. Patient stated she returned to her provider and told them she was suicidal and her provider ([facility]) IVCed her for evaluation. Patient stated she was having suicidal ideation but continues to be unable to identify what suicidal thoughts she is having and denied having a plan, intent or access to means. Patient's provider ([facility]) was called. Provider stated the patient did come to their office and state she was suicidal. Patient was unable to give her provider any response to what her plan would be to hurt herself. Provider stated the patient is homeless again and is between the [facility] and staying at friends' houses. Provider did state the patient is running out of personal resources in this community as far as friends to stay with. This production maintenance mechanic asked why the patient's medications were not evaluated if they are what the patient is saying has changed her mood. Patient' s provider stated they don't evaluate for medications if the patient makes a suicidal statement, even if the medication is what the patient identifies as the reason for mood changes. Patient was alert and oriented to person, place, time and circumstance. Mood was agitated with irritable affect. She did not appear to be responding to internal stimuli as evidenced by appropriate eye contact and engaging in conversation. Thought processes were linear, rational and organized. Conversational speech was within normal limits for rate, prosody and tone. Intellectual abilities were estimated within average range. Attention and concentration were normal. Insight, judgment and impulse control were fair. 1. 300.00 (F41.9) Unspecified Anxiety Disorder, per patient report Impression/Plan: Patient is psychiatrically clear. Patient does not meet [place] G.S IVC 122C criteria. Patient endorsed vague suicidal ideation with no plan, intent or means. She is not considered a danger to herself or others at this time. Patient continues to utilize the Emergency Department when she does not have a place to stay. Patient was recommended to follow up with her provider, [facility], for scheduled outpatient therapies and medication management. Dr. Choudhury was consulted in the care and management of this patient. ED physician in agreement with recommendation and disposition.
== END 2017-09-19 15:50 | disposition home or self-care (01) ==
LOC: ER 13:53
DX: Z76.5 Malingerer [conscious simulation] (principal); R45.851 Suicidal ideations; F17.210 Nicotine dependence, cigarettes, uncomplicated
CPT/HCPCS: 99285

== ENCOUNTER 2017-11-19 02:13 | Emergency (ER) | payer SELFPAY ==
[2017-11-19] MEDS ORDERED: PROMETHAZINE HCL INJ 25 MG/1 ML VIAL IM ONE (02:48)
[2017-11-19] MEDS ORDERED: ACETAMINOPHEN 325 MG TABLET PO ONE (02:48)
[2017-11-19] MEDS ORDERED: NORMAL SALINE 1000 ML 1,000 ML IV ONE (02:49)
[2017-11-19] MEDS ORDERED: DIPHENHYDRAMINE HCL 50 MG/ML VIAL IV ONE (02:50)
--- NOTE | 2017-11-19 02:51 | ER Document Report ---
ED General - General Chief Complaint: Abdominal Pain Stated Complaint: ABDOMINAL PAIN Time Seen by Provider: 11/19/17 02:32 Notes: Patient is a 32-year-old female presents with complaint of some abdominal pain and vomiting. She has been ongoing for a week. She says she has been in intermediate for the past week. No diarrhea. She says her menstrual period is approximately 2 weeks late. She is unsure if she be . She also noticed some from her breast. No fevers. No redness or swelling to her breasts. No abnormal vaginal discharge or bleeding. She has had some dysuria and pressure when she urinates. She is also supposed to be on multiple medications but these were discontinued when she was in intermediate and she has not had a chance to see her doctor yet to get them represcribed. These medications include Ambien 10 mg a day, lisinopril 40 mg a day, Klonopin 1 mg twice daily, Adderall XR 30 mg daily, hydrochlorothiazide 12-1/2 mg daily. TRAVEL OUTSIDE OF THE [place] IN LAST 30 DAYS: No - Related Data Allergies/Adverse Reactions: ketorolac tromethamine [From Toradol] Allergy (Verified 09/12/17 11:16) meperidine HCl [From Demerol] Allergy (Verified 09/12/17 11:16) metoclopramide HCl [From Reglan] Allergy (Verified 09/12/17 11:16) morphine [Morphine] Allergy (Verified 09/12/17 11:16) tramadol [Tramadol] Allergy (Verified 09/12/17 11:16) Hives hydroxyzine [From Vistaril] Adverse Reaction (Verified 09/12/17 11:16) Anxiety ondansetron HCl [From Zofran] Adverse Reaction (Verified 09/12/17 11:16) VOMITING Past Medical History - Social History Smoking Status: Unknown if Ever Smoked Frequency of alcohol use: None Drug Abuse: None Family History: Arthritis, DM, Hyperlipidemia, Hypertension - Past Medical History Cardiac Medical History: Reports: Hx Hypertension Neurological Medical History: Reports: Hx Migraine Renal/ Medical History: Denies: Hx Peritoneal Dialysis Musculoskeltal Medical History: Reports Hx Musculoskeletal Trauma Psychiatric Medical History: Reports: Hx Anxiety, Hx Attention Deficit Hyperactivity Disorder, Hx Bipolar Disorder, Hx Depression, Hx Post Traumatic Stress Disorder Traumatic Medical History: Reports: Hx Fractures - nose Past Surgical History: Reports: Hx Abdominal Surgery - LAPROSCOPY, Hx Gynecologic Surgery - d&c, lap for endometriosis, Hx Nose Surgery - Reconstruction for fracture, Other - facial reconstruction - Immunizations Immunizations up to date: Yes Hx Diphtheria, Pertussis, Tetanus Vaccination: Yes - 2010 Review of Systems - Review of Systems Notes: My Normal Review Basic REVIEW OF SYSTEMS: CONSTITUTIONAL : Denies fever, chills, or sweats. Denies recent illness. EENT: Denies eye, ear, throat, or mouth pain or symptoms. Denies nasal or sinus congestion. CARDIOVASCULAR: Denies chest pain. RESPIRATORY: Denies cough, cold, or chest congestion. Denies shortness of breath, difficulty breathing, or wheezing. GASTROINTESTINAL: Some lower abdominal pain. Some vomiting. No diarrhea. GENITOURINARY: Urinary pressure. FEMALE GENITOURINARY: Denies vaginal bleeding, abnormal or irregular periods. LMP: MUSCULOSKELETAL: Denies neck or back pain or joint pain or swelling. SKIN: Denies rash or skin lesions. NEUROLOGICAL: Denies altered mental status or loss of consciousness. Denies headache. Denies weakness or paralysis or loss of use of either side. Denies problems with gait or speech. Denies sensory or motor loss. PSYCHIATRIC: Anxiety ALL OTHER SYSTEMS REVIEWED AND NEGATIVE. Physical Exam - Vital signs Vitals: Temp Pulse Resp BP Pulse Ox 99.5 F 111 H 18 149/95 H 100 11/19/17 02:28 11/19/17 02:28 11/19/17 02:28 11/19/17 02:28 11/19/17 02:28 - Notes Notes: General Appearance: Well nourished, alert, cooperative, no acute distress, no obvious discomfort. Anxious appearing. Vitals: reviewed, See vital signs table. Head: no swelling or tenderness to the head Eyes: PERRL, EOMI, Conjuctiva clear Mouth: No decreasd moisture Throat: No tonsillar inflammation, No airway obstruction, No lymphadenopathy Neck: Supple, no neck tenderness, No thyromegaly Lungs: No wheezing, No rales, No rhonci, No accessory muscle use, good air exchange bilaterally. Heart: Tachycardiac rate, Regular rythm, No murmur, no rub Abdomen: Normal BS, soft, No rigidity, No reproducible abdominal tenderness to palpation, No guarding, no rebound, no abdominal masses, no organomegaly Extremities: strength 5/5 in all extremities, good pulses in all extremities, no swelling or tenderness in the extremities, no edema. Skin: warm, dry, appropriate color, no rash Neuro: speech clear, oriented x 3, normal affect, responds appropriately to questions. Course - Re-evaluation Re-evalutation: 11/19/17 06:30 Patient did not have any vomiting while here in the ER. Her test is negative. I suspect her vomiting with her significant anxiety and this could also be related to her not being on her medications. I have represcribed her medications. She is will see her doc doctor this coming week. I informed her that she needs to mention the discharge that she was having from her breasts because of this does not improve she will need a mammogram. I told her discuss this with her doctor. Patient encouraged to return to ER if she has intractable vomiting, fevers, or feels unwell. Patient agrees with plan will be discharged home. Dictation of this chart was performed using voice recognition software; therefore, there may be some unintended grammatical errors. - Vital Signs Vital signs: Temp Pulse Resp BP Pulse Ox 98.0 F 93 18 134/94 H 100 11/19/17 04:57 11/19/17 04:57 11/19/17 04:57 11/19/17 04:57 11/19/17 04:57 - Laboratory Result Diagrams: 11/19/17 03:00 11/19/17 03:00 Laboratory results interpreted by me: 11/19/17 11/19/17 11/19/17 02:50 03:00 03:00 RBC 3.58 L Hgb 9.8 L Hct 30.1 L RDW 15.1 H Plt Count 130 L Sodium 146.5 H Chloride 110 H Ur Leukocyte Esterase SMALL H Discharge - Discharge Clinical Impression: Vomiting Qualifiers: Vomiting type: unspecified Vomiting Intractability: unspecified Nausea presence : unspecified Qualified Code(s): R11.10 - Vomiting, unspecified Abdominal pain Qualifiers: Abdominal location: generalized Qualified Code(s): R10.84 - Generalized abdominal pain Condition: Stable Disposition: HOME, SELF-CARE Additional Instructions: Please take your medications as prescribed. Please follow up with your doctor in -3 days for revaluation. please make sure she reevaluates your breast to make sure the discharge discontinues. You will need a mammogram if your breast discharge continues. Return to the ER if you have intractable vomiting, fevers, or feel that you are worsening. Prescriptions: Clonazepam [Klonopin 1 mg Tablet] 1 mg PO BID PRN #30 tablet PRN Reason: Anxiety Dextroamphetamine/Amphetamine [Adderall Xr 30 mg Capsule] 30 mg PO DAILY #15 cap.er.24h Hydrochlorothiazide 12.5 mg PO DAILY #15 capsule Lisinopril 40 mg PO DAILY #15 tablet Promethazine HCl [Phenergan 25 mg Tablet] 1 tab PO Q6H PRN #15 tablet PRN Reason: Zolpidem Tartrate [Ambien] 10 mg PO QPM #15 tablet Referrals: ANTONELLA VIRGEN MD [Primary Care Provider] - 11/21/17
[2017-11-19 03:14] LABS: ABSOLUTE EOSINOPHILS # (AUTO) 0.1 10^3/uL (0.0-0.6); ABSOLUTE LYMPHOCYTES (AUTO) 1.7 10^3/uL (0.5-4.7); ABSOLUTE MONOCYTES (AUTO) 0.9 10^3/uL (0.1-1.4); ABSOLUTE NEUT (AUTO) 4.5 10^3/uL (1.7-8.2); BASOPHILS % (AUTO) 0.3 % (0-2); EOSINOPHILS % (AUTO) 1.7 % (0-6); HEMATOCRIT 30.1 % (36.0-47.0); HEMOGLOBIN 9.8 g/dL (12.0-15.5); LYMPHOCYTES % (AUTO) 23.8 % (13-45); MEAN CORPUSCULAR HEMOGLOBIN 27.5 pg (27.0-33.4); MEAN CORPUSCULAR HGB CONC 32.6 g/dL (32.0-36.0); MEAN CORPUSCULAR VOLUME 84 fl (80-97); MONOCYTES % (AUTO) 12.5 % (3-13); PLATELET COUNT 130 10^3/uL (150-450); RED BLOOD COUNT 3.58 10^6/uL (3.72-5.28); RED CELL DISTRIBUTION WIDTH 15.1 % (11.5-14.0); SEGMENTED NEUTROPHILS % (AUTO) 61.7 % (42-78); TOTAL CELLS COUNTED % (AUTO) 100 %; WHITE BLOOD COUNT 7.3 10^3/uL (4.0-10.5)
[2017-11-19 03:48] LABS: ALANINE AMINOTRANSFERASE 29 U/L (9-52); ALBUMIN 4.3 g/dL (3.5-5.0); ALKALINE PHOSPHATASE 115 U/L (38-126); ANION GAP 11 (5-19); ASPARTATE AMINO TRANSFERASE 17 U/L (14-36); BILIRUBIN,DIRECT 0.1 mg/dL (0.0-0.4); BILIRUBIN,TOTAL 0.2 mg/dL (0.2-1.3); BLOOD UREA NITROGEN 19 mg/dL (7-20); CALCIUM 9.5 mg/dL (8.4-10.2); CARBON DIOXIDE 26 mmol/L (22-30); CHLORIDE 110 mmol/L (98-107); GLUCOSE 109 mg/dL (75-110); POTASSIUM 3.8 mmol/L (3.6-5.0); SODIUM 146.5 mmol/L (137-145); TOTAL PROTEIN 6.9 g/dL (6.3-8.2)
[2017-11-19 03:49] LABS: APPEARANCE,URINE CLEAR; BILIRUBIN,URINE NEGATIVE (NEGATIVE); COLOR,URINE YELLOW; GLUCOSE, URINE NEGATIVE (NEGATIVE)
[2017-11-19 03:50] LABS: KETONES,URINE NEGATIVE (NEGATIVE); LEUKOCYTE ESTERASE,URINE SMALL (NEGATIVE); NITRITE,URINE NEGATIVE (NEGATIVE); PROTEIN,URINE NEGATIVE (NEGATIVE); URINE SPECIFIC GRAVITY 1.022; UROBILINOGEN,URINE NEGATIVE mg/dL (<2.0)
[2017-11-19] MEDS ORDERED: CLONAZEPAM 1 MG TABLET PO ONE (04:00)
[2017-11-19] MEDS ORDERED: OXYCODONE-ACETAMINOPHEN 5-325 MG TABLET PO ONE (04:00)
[2017-11-19 04:59] VITALS: BP 134/94
== END 2017-11-19 05:00 | disposition home or self-care (01) ==
LOC: ER 02:13
DX: R10.84 Generalized abdominal pain (principal); R11.10 Vomiting, unspecified; N64.3 Galactorrhea not associated with childbirth; R30.0 Dysuria; F41.9 Anxiety disorder, unspecified; T42.6X6A Underdosing of other antiepileptic and sedative-hypnotic drugs, initial encounter; T42.4X6A Underdosing of benzodiazepines, initial encounter; F90.9 Attention-deficit hyperactivity disorder, unspecified type; T43.626A Underdosing of amphetamines, initial encounter; I10 Essential (primary) hypertension; T50.2X6A Underdosing of carbonic-anhydrase inhibitors, benzothiadiazides and other diuretics, initial encounter; T46.4X6A Underdosing of angiotensin-converting-enzyme inhibitors, initial encounter; Z91.128 Patient's intentional underdosing of medication regimen for other reason; Y92.149 Unspecified place in prison as the place of occurrence of the external cause; Z32.02 Encounter for pregnancy test, result negative; Z88.8 Allergy status to other drugs, medicaments and biological substances; Z88.5 Allergy status to narcotic agent
CPT/HCPCS: 99284; 96372; 96361; 96374; 36415; 85025; 81025; 80053; 81001; J1200; J2550; J7030

== ENCOUNTER 2017-12-20 17:39 | Emergency (ER) | payer SELFPAY ==
--- NOTE | 2017-12-20 17:53 | ER Document Report ---
HPI - HPI Patient complains to provider of: out of medications, and needs to be checked for infection Onset: Last week Onset/Duration: Gradual Pain Level: 2 Context: 32 yo female c/o odor and vaginal discharge for 2 days, hurts with sex. No lesions. Hx chlamydia long time ago. Hx BV. No fever. No pelvic or back pain. No dysuria. She wants refill on her adderall 20mg SR and her antihypertensive. Prescriptions were given by dr caldera in ER on 11/19 for antihypertensive and kloniopin. 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 Lives with: Family Family History: Arthritis, DM, Hyperlipidemia, Hypertension - Past Medical History Cardiac Medical History: Reports: Hx Hypertension Neurological Medical History: Reports: Hx Migraine Renal/ Medical History: Denies: Hx Peritoneal Dialysis Musculoskeltal Medical History: Reports Hx Musculoskeletal Trauma Psychiatric Medical History: Reports: Hx Anxiety, Hx Attention Deficit Hyperactivity Disorder, Hx Bipolar Disorder, Hx Depression, Hx Post Traumatic Stress Disorder Traumatic Medical History: Reports: Hx Fractures - nose Past Surgical History: Reports: Hx Abdominal Surgery - LAPROSCOPY, Hx Gynecologic Surgery - d&c, lap for endometriosis, Hx Nose Surgery - Reconstruction for fracture, Other - facial reconstruction - Immunizations Immunizations up to date: Yes Hx Diphtheria, Pertussis, Tetanus Vaccination: Yes - 2010 [facility] Provider Document - CONSTITUTIONAL Agree With Documented VS: Yes Exam Limitations: No Limitations General Appearance: No Apparent Distress - INFECTION CONTROL TRAVEL OUTSIDE OF THE [place] IN LAST 30 DAYS: No - HEENT HEENT: Normocephalic - NECK Neck: Supple - RESPIRATORY Respiratory: Breath Sounds Normal, No Respiratory Distress - CARDIOVASCULAR Cardiovascular: Regular Rate, Regular Rhythm - GI/ABDOMEN Gastrointestinal: Abdomen Soft, Abdomen Non-Tender, No Organomegaly - BACK Back: Normal Inspection. negative: CVA Tenderness-Right, CVA Tenderness-Left - MUSCULOSKELETAL/EXTREMETIES Musculoskeletal/Extremeties: MAEW - NEURO Level of Consciousness: Awake, Alert - DERM Integumentary: Warm, Dry Course - Re-evaluation Re-evalutation: 12/20/17 20:26 quantitative test is 535. No IUP seen on US, small amount fluid in the culdesac. 12/20/17 20:[address] jackson, no hydrochlorothiazide, lisinopril or Adderall or Klonopin due to this . Start her on labetalol 100 mg twice a day. Treat the bacterial vaginosis with Flagyl 500 mg twice a day for 1 week. Repeat the serum quantitative test in 48 hours. Return to the emergency room for any vaginal bleeding or pain. See [facility] [employer] [facility] for follow-up in 48 hours. 12/20/17 21:06 Patient is very upset that I cannot refill her Adderall explained that she should not take her Klonopin either. She does not want to keep the I explained that she can call a clinic and asked him what to do since there was nothing on the ultrasound that she had and the quantitative is only 535. Recommended that [facility] to find out what her other options are that she was not happy with that either. She is tearful and very upset about this . She has no more for questions for me - Vital Signs Vital signs: Temp Pulse Resp BP Pulse Ox 99.1 F 94 18 134/84 H 100 12/20/17 17:47 12/20/17 17:47 12/20/17 17:47 12/20/17 17:47 12/20/17 17:47 Discharge - Discharge Clinical Impression: Bacterial vaginosis, Early , History of hypertension Condition: Good Disposition: HOME, SELF-CARE Instructions: Beta Blockers ([facility]), Metronidazole ([facility]), [facility], ([facility]), Vaginosis, Bacterial ([facility]), [facility] ([facility]) Additional Instructions: emergency room will not continue to refill your antihypertensives and psychiatric medications. see [facility] for other options since you are Repeat the serum quantitative test in 48 hours I have given you an outpatient form for that. See [facility] [facility] in 48 hours for follow-up. Return to the emergency room for any increased pain or bleeding No alcohol Multivitamin daily Flagyl twice a day for 1 week for the bacterial vaginosis Your gonorrhea and Chlamydia test were negative We are starting you on a antihypertensive medication that is safe for called labetalol and you will take 100 mg twice a day Prescriptions: Labetalol HCl 100 mg PO BID #60 tablet Metronidazole [Flagyl 500 mg Tablet] 500 mg PO BID #14 tablet Forms: Follow-Up Laboratory Testing Referrals: ZEE JACKSON MD [ACTIVE STAFF] - Follow up as needed
[2017-12-20] MEDS ORDERED: LIDOCAINE 1% INJ-PF (10 MG/ML) 30 ML SDV INFIL ONE (18:07)
[2017-12-20] MEDS ORDERED: CEFTRIAXONE INJ 250 MG VIAL IM ONE (18:07)
[2017-12-20] MEDS ORDERED: AZITHROMYCIN 250 MG TABLET PO ONE (18:08)
[2017-12-20] MEDS ORDERED: ONDANSETRON 4 MG TAB.RAPDIS PO ONE (18:08)
[2017-12-20 18:18] LABS: APPEARANCE,URINE CLEAR; BILIRUBIN,URINE NEGATIVE (NEGATIVE); COLOR,URINE YELLOW; GLUCOSE, URINE NEGATIVE (NEGATIVE); KETONES,URINE NEGATIVE (NEGATIVE); LEUKOCYTE ESTERASE,URINE NEGATIVE (NEGATIVE); NITRITE,URINE NEGATIVE (NEGATIVE); PROTEIN,URINE NEGATIVE (NEGATIVE); URINE SPECIFIC GRAVITY 1.012; UROBILINOGEN,URINE NEGATIVE mg/dL (<2.0)
[2017-12-20 18:21] LABS: BACTERIA (WET MOUNT) 4+ BACTERIA SEEN; EPITHELIALS (WET MOUNT) 4+ EPITHELIALS SEEN; T.VAGINALIS (WET MOUNT) NO TRICHOMONAS SEEN; WBCS (WET MOUNT) 3+ WBCS SEEN; YEAST (WET MOUNT) NO YEAST SEEN
[2017-12-20 19:45] LABS: CHLAM PCR NOT DETECTED (NOT DETECT); GON PCR NOT DETECTED (NOT DETECT)
--- NOTE | 2017-12-20 20:17 | RADIOLOGY REPORT (SQ) ---
EXAM DESCRIPTION: U/S OB TRANSVAG W/DOPPLER COMPLETED DATE/TIME: 12/20/2017 7:53 pm REASON FOR STUDY: pelvic US COMPARISON: None. TECHNIQUE: Transvaginal static and realtime grayscale images acquired of the pelvis. Additional leon cted spectral and color Doppler images recorded. All images stored on PACs. bHCG: Positive. Not quantified. CLINICAL DATES: LMP is not known. LIMITATIONS: None. FINDINGS: No gestational sac, pole, cardiac motion, or yolk sac. UTERUS: 9.8 x 5.8 x 8 cm. No masses or anomalies. CERVICAL LENGTH: 3.5 cm. Closed. RIGHT ADNEXA: Normal ovary. 3.7 x 2.3 x 2.5 cm. No adnexal free fluid. No adnexal masses. LEFT ADNEXA: Ovary not seen. No adnexal free fluid. No adnexal masses. FREE FLUID: There is a small amount of free fluid in the cul-de-sac. OTHER: No other significant finding. IMPRESSION: No intrauterine gestation is seen at this time. A small amount of free fluid was seen i n the cul-de-sac. Follow-up as clinically indicated. TECHNICAL DOCUMENTATION: JOB ID: [id number]- All Rights Reserved rev-01/06 Reading location - IP/workstation name: [email or web address]
[2017-12-20 21:08] VITALS: BP 130/83
== END 2017-12-20 21:08 | disposition home or self-care (01) ==
LOC: ER 17:39
DX: O23.599 Infection of other part of genital tract in pregnancy, unspecified trimester (principal); B96.89 Other specified bacterial agents as the cause of diseases classified elsewhere; O16.9 Unspecified maternal hypertension, unspecified trimester; O99.330 Smoking (tobacco) complicating pregnancy, unspecified trimester; Z3A.00 Weeks of gestation of pregnancy not specified
CPT/HCPCS: 99284; 96372; 36415; 87210; 84702; 81025; 81001; 87491; 87591; 76817; 93976; S0119; J3490; J0696

== ENCOUNTER → 2017-12-23 | Outpatient (CLI) | payer SELFPAY | LOC: LAB 17:31 | PROVIDERS: ATTEND Nurse Practitioner Family | DX: O26.899 Other specified pregnancy related conditions, unspecified trimester (principal); R10.2 Pelvic and perineal pain | CPT/HCPCS: 36415; 84702 ==

== ENCOUNTER 2017-12-30 09:56 | Emergency (ER) | payer SELFPAY ==
[2017-12-30 11:12] LABS: APPEARANCE,URINE SLIGHTLY-CLOUDY; BILIRUBIN,URINE NEGATIVE (NEGATIVE); COLOR,URINE YELLOW; GLUCOSE, URINE NEGATIVE (NEGATIVE); KETONES,URINE TRACE mg/dL (NEGATIVE); LEUKOCYTE ESTERASE,URINE NEGATIVE (NEGATIVE); NITRITE,URINE NEGATIVE (NEGATIVE); PROTEIN,URINE 30 mg/dL (NEGATIVE); URINE SPECIFIC GRAVITY 1.024
[2017-12-30] MEDS ORDERED: LIDOCAINE 2% VISCOUS SOLN 20 ML UDCUP PO ONE (13:13)
--- NOTE | 2017-12-30 13:32 | ER Document Report ---
ED General - General Chief Complaint: Abdominal Cramping Stated Complaint: ABDOMINAL PAIN Time Seen by Provider: 12/30/17 11:13 Mode of Arrival: Ambulatory Information source: Patient Notes: 32-year-old female 6 para 5 presents for confirmation of . Patient admits to cramping sensation, wants to make sure that her hemoglobin hCG is rising appropriately. Patient denies any vaginal bleeding or discharge TRAVEL OUTSIDE OF THE [place] IN LAST 30 DAYS: No - HPI Onset: Just prior to arrival Onset/Duration: Sudden Quality of pain: Cramping Severity: Mild Pain Level: 1 Associated symptoms: Other Exacerbated by: Denies Relieved by: Denies Similar symptoms previously: No Recently seen / treated by doctor: No - Related Data Allergies/Adverse Reactions: ketorolac tromethamine [From Toradol] Allergy (Verified 12/30/17 09:58) meperidine HCl [From Demerol] Allergy (Verified 12/30/17 09:58) metoclopramide HCl [From Reglan] Allergy (Verified 12/30/17 09:58) morphine [Morphine] Allergy (Verified 12/30/17 09:58) tramadol [Tramadol] Allergy (Verified 12/30/17 09:58) Hives hydroxyzine [From Vistaril] Adverse Reaction (Verified 12/30/17 09:58) Anxiety ondansetron HCl [From Zofran] Adverse Reaction (Verified 12/30/17 09:58) VOMITING Past Medical History - Social History Smoking Status: Never Smoker Cigarette use (# per day): No Chew tobacco use (# tins/day): No Smoking Education Provided: No Frequency of alcohol use: None Drug Abuse: None Family History: Arthritis, DM, Hyperlipidemia, Hypertension Patient has suicidal ideation: No Patient has homicidal ideation: No - Past Medical History Cardiac Medical History: Reports: Hx Hypertension Neurological Medical History: Reports: Hx Migraine Renal/ Medical History: Denies: Hx Peritoneal Dialysis Musculoskeltal Medical History: Reports Hx Musculoskeletal Trauma Psychiatric Medical History: Reports: Hx Anxiety, Hx Attention Deficit Hyperactivity Disorder, Hx Bipolar Disorder, Hx Depression, Hx Post Traumatic Stress Disorder Traumatic Medical History: Reports: Hx Fractures - nose Past Surgical History: Reports: Hx Abdominal Surgery - LAPROSCOPY, Hx Gynecologic Surgery - d&c, lap for endometriosis, Hx Nose Surgery - Reconstruction for fracture, Other - facial reconstruction - Immunizations Immunizations up to date: Yes Hx Diphtheria, Pertussis, Tetanus Vaccination: Yes - 2010 Review of Systems - Review of Systems Notes: REVIEW OF SYSTEMS: CONSTITUTIONAL : Denies fever, chills, or sweats. Denies recent illness. EENT: Admits to dental pain CARDIOVASCULAR: Denies chest pain. Denies palpitations or racing or irregular heart beat. Denies ankle edema. RESPIRATORY: Denies cough, cold, or chest congestion. Denies shortness of breath, difficulty breathing, or wheezing. GASTROINTESTINAL: Abdominal cramping GENITOURINARY: Denies difficulty urinating, painful urination, burning, frequency, blood in urine, or discharge. FEMALE GENITOURINARY: Denies vaginal bleeding, heavy or abnormal periods, irregular periods. Denies vaginal discharge or odor. MUSCULOSKELETAL: Denies back or neck pain or stiffness. Denies joint pain or swelling. SKIN: Denies rash, lesions or sores. HEMATOLOGIC : Denies easy bruising or bleeding. LYMPHATIC: Denies swollen, enlarged glands. NEUROLOGICAL: Denies confusion or altered mental status. Denies passing out or loss of consciousness. Denies dizziness or lightheadedness. Denies headache. Denies weakness or paralysis or loss of use of either side. Denies problems with gait or speech. Denies sensory loss, numbness, or tingling. Denies seizures. PSYCHIATRIC: Anxious. ALL OTHER SYSTEMS REVIEWED AND NEGATIVE. PHYSICAL EXAMINATION: GENERAL: Well-appearing, well-nourished and in no acute distress. HEAD: Atraumatic, normocephalic. EYES: Pupils equal round and reactive to light, extraocular movements intact, conjunctiva are normal. ENT: Nares patent, oropharynx clear without exudates. Moist mucous membranes. Tooth right first molar on the bottom fractured NECK: Normal range of motion, supple without lymphadenopathy LUNGS: Breath sounds clear to auscultation bilaterally and equal. No wheezes rales or rhonchi. HEART: Initially was tachycardic upon arrival anxious but regular rate and rhythm without murmurs ABDOMEN: Soft, nontender, nondistended abdomen. No guarding, no rebound. No masses appreciated. Female : deferred Musculoskeletal: Normal range of motion, no pitting or edema. No cyanosis. NEUROLOGICAL: Cranial nerves grossly intact. Normal speech, normal gait. Normal sensory, motor exams PSYCH: Normal mood, normal affect. SKIN: Warm, Dry, normal turgor, no rashes or lesions noted. Dictation was performed using [employer] voice recognition software Physical Exam - Vital signs Vitals: Temp Pulse Resp BP Pulse Ox 99.2 F 128 H 20 122/84 100 12/30/17 10:28 12/30/17 10:28 12/30/17 10:28 12/30/17 10:28 12/30/17 10:28 Course - Re-evaluation Re-evalutation: 12/30/17 16:49 Patient's hCG count has increased, I did order an ultrasound but the patient defers, she states she wishes to just go home and is happy to know that the hCG levels are improving. Sure that this is not a complete workup. Patient states she understands, she does admit to dental pain as well, examination her teeth note the front molar on the bottom right has a fracture in the, it is tender to palpation there is no obvious abscess, patient will be started on antibiotics and is otherwise stable After performing a Medical Screening Examination, I estimate there is LOW risk for ACUTE APPENDICITIS, BOWEL OBSTRUCTION, ACUTE CHOLECYSTITIS, PERFORATED DIVERTICULITIS, INCARCERATED HERNIA, PANCREATITIS, PELVIC INFLAMMATORY DISEASE, PERFORATED ULCER, ECTOPIC , or TUBO-OVARIAN ABSCESS, thus I consider the discharge disposition reasonable. Also, there is no evidence or peritonitis , sepsis, or toxicity. I have reevaluated this patient multiple times and no significant life threatening changes are noted. The patient and I have discussed the diagnosis and risks, and we agree with discharging home with close follow-up with the understanding that symptoms and presentations can change. We also discussed returning to the Emergency Department immediately if new or worsening symptoms occur. We have discussed the symptoms which are most concerning (e.g., bloody stool, fever, changing or worsening pain, vomiting) that necessitate immediate return. - Vital Signs Vital signs: Temp Pulse Resp BP Pulse Ox 99.2 F 99 18 122/82 100 12/30/17 10:28 12/30/17 13:39 12/30/17 13:39 12/30/17 13:39 12/30/17 13:39 - Laboratory Laboratory results interpreted by me: 12/30/17 12/30/17 10:50 11:47 Beta HCG, Quant 4620.30 H Urine Protein 30 H Urine Ketones TRACE H Urine Urobilinogen 2.0 H Urine HCG, Qual POSITIVE H Discharge - Discharge Clinical Impression: Pain, dental Qualifiers: Weeks of gestation: less than 8 weeks Qualified Code(s): Z3A.01 - Less than 8 weeks gestation of Condition: Stable Disposition: HOME, SELF-CARE Instructions: Toothache ([facility]) Prescriptions: Penicillin V Potassium [Penicillin Vk 500 mg Tablet] 500 mg PO Q6 #40 tablet Referrals: [facility]PT,[facility] [NO LOCAL MD] - Follow up tomorrow
[2017-12-30 13:40] VITALS: BP 122/82
== END 2017-12-30 13:39 | disposition home or self-care (01) ==
LOC: ER 09:56 → EEVIPCON 09:56 → ER 13:39
DX: O99.611 Diseases of the digestive system complicating pregnancy, first trimester (principal); K08.89 Other specified disorders of teeth and supporting structures; O26.891 Other specified pregnancy related conditions, first trimester; R10.9 Unspecified abdominal pain; O16.1 Unspecified maternal hypertension, first trimester; O99.341 Other mental disorders complicating pregnancy, first trimester; F41.9 Anxiety disorder, unspecified; Z3A.01 Less than 8 weeks gestation of pregnancy; Z88.8 Allergy status to other drugs, medicaments and biological substances; Z88.5 Allergy status to narcotic agent
CPT/HCPCS: 99284; 36415; 84702; 81025; 81001; J3490

== ENCOUNTER 2018-01-15 09:04 | Emergency (ER) | payer SELFPAY ==
[2018-01-15] MEDS ORDERED: RINGERS SOLUTION,LACTATED 1,000 ML IV ONE (09:48)
[2018-01-15] MEDS ORDERED: PROMETHAZINE HCL INJ 25 MG/1 ML VIAL IV ONE (09:50)
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
[2018-01-15 10:19] LABS: APPEARANCE,URINE SLIGHTLY-CLOUDY; BILIRUBIN,URINE NEGATIVE (NEGATIVE); COLOR,URINE YELLOW; GLUCOSE, URINE NEGATIVE (NEGATIVE); KETONES,URINE TRACE mg/dL (NEGATIVE); LEUKOCYTE ESTERASE,URINE TRACE (NEGATIVE); NITRITE,URINE NEGATIVE (NEGATIVE); PROTEIN,URINE NEGATIVE (NEGATIVE); UROBILINOGEN,URINE NEGATIVE mg/dL (<2.0)
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
[2018-01-15 10:33] LABS: URINE AMPHETAMINES SCREEN NEGATIVE; URINE BARBITURATES SCREEN NEGATIVE; URINE BENZODIAZEPINES SCREEN NEGATIVE; URINE COCAINE SCREEN NEGATIVE; URINE MARIJUANA (THC) SCREEN NEGATIVE; URINE METHADONE SCREEN NEGATIVE; URINE PHENCYCLIDINE SCREEN NEGATIVE
[2018-01-15] MEDS ORDERED: PYRIDOXINE HCL 50 MG TABLET PO ONE (11:10)
[2018-01-15] MEDS ORDERED: DIPHENHYDRAMINE HCL 50 MG/ML VIAL IV ONE (11:30)
[2018-01-15 11:40] LABS: ABSOLUTE EOSINOPHILS # (AUTO) 0.2 10^3/uL (0.0-0.6); ABSOLUTE LYMPHOCYTES (AUTO) 1.2 10^3/uL (0.5-4.7); ABSOLUTE MONOCYTES (AUTO) 0.4 10^3/uL (0.1-1.4); ABSOLUTE NEUT (AUTO) 2.3 10^3/uL (1.7-8.2); BASOPHILS % (AUTO) 0.5 % (0-2); EOSINOPHILS % (AUTO) 4.4 % (0-6); HEMATOCRIT 30.8 % (36.0-47.0); HEMOGLOBIN 10.2 g/dL (12.0-15.5); LYMPHOCYTES % (AUTO) 28.8 % (13-45); MEAN CORPUSCULAR HEMOGLOBIN 28.1 pg (27.0-33.4); MEAN CORPUSCULAR HGB CONC 33.3 g/dL (32.0-36.0); MEAN CORPUSCULAR VOLUME 84 fl (80-97); MONOCYTES % (AUTO) 10.4 % (3-13); PLATELET COUNT 155 10^3/uL (150-450); RED BLOOD COUNT 3.64 10^6/uL (3.72-5.28); RED CELL DISTRIBUTION WIDTH 14.7 % (11.5-14.0); SEGMENTED NEUTROPHILS % (AUTO) 55.9 % (42-78); TOTAL CELLS COUNTED % (AUTO) 100 %; WHITE BLOOD COUNT 4.1 10^3/uL (4.0-10.5)
[2018-01-15] MEDS ORDERED: NORMAL SALINE 1000 ML 1,000 ML IV PRN (12:16)
[2018-01-15 12:19] LABS: ALANINE AMINOTRANSFERASE 26 U/L (9-52); ALBUMIN 4.2 g/dL (3.5-5.0); ALKALINE PHOSPHATASE 36 U/L (38-126); ASPARTATE AMINO TRANSFERASE 16 U/L (14-36); BILIRUBIN,DIRECT 0.2 mg/dL (0.0-0.4); BILIRUBIN,TOTAL 0.7 mg/dL (0.2-1.3); BLOOD UREA NITROGEN 8 mg/dL (7-20); CALCIUM 9.5 mg/dL (8.4-10.2); CARBON DIOXIDE 24 mmol/L (22-30); GLUCOSE 104 mg/dL (75-110); PHOSPHORUS 3.4 mg/dL (2.5-4.5); POTASSIUM 3.6 mmol/L (3.6-5.0); SODIUM 144.3 mmol/L (137-145); TOTAL PROTEIN 7.1 g/dL (6.3-8.2)
[2018-01-15 12:20] LABS: ANION GAP 12 (5-19); CHLORIDE 108 mmol/L (98-107)
[2018-01-15] MEDS ORDERED: NORMAL SALINE 1000 ML 1,000 ML IV ONE (12:40)
[2018-01-15] MEDS ORDERED: NITROFURANTOIN MONOHYD/M-CRYST 100 MG CAPSULE PO ONE (15:18)
[2018-01-15] MEDS ORDERED: PRENATAL VITAMIN W DHA CAPSULE PO ONE (15:40)
[2018-01-15] MEDS ORDERED: ACETAMINOPHEN 325 MG TABLET PO ONE (15:57)
--- NOTE | 2018-01-15 18:25 | RADIOLOGY REPORT (SQ) ---
EXAM DESCRIPTION: U/S OB TRANSVAGINAL W/O DOP COMPLETED DATE/TIME: 01/15/2018 5:46 pm REASON FOR STUDY: reports vaginal spotting, 7 weeks preg COMPARISON: 12/20/2017. TECHNIQUE: Transvaginal static and realtime grayscale images acquired of the pelvis. Additional leon cted spectral and color Doppler images recorded. All images stored on PACs. [id number] CLINICAL DATES: Last menstrual period according to patient 11/19/2017 for estimated gestational age 8 weeks 1 day LIMITATIONS: None FINDINGS: FETUS SAC: Gestational sac measuring 1.9 cm without pole. ULTRASOUND KRISTEN: 08/26/2018 SUBCHORIONIC BLEED: None seen. UTERUS: The uterus measures 9.2 x 5.7 x 5.9 cm. Within the uterus tthere is now evidence of a gestat ional sac measuring 1.9 cm with yolk sac visualized. No pole identified. CERVICAL LENGTH: 3.6 cm. Closed. RIGHT ADNEXA: The right ovary measures 3.1 x 2.4 x 2.6 cm. No adnexal free fluid. No adnexal masses. LEFT ADNEXA: Left ovary nonvisualized. No adnexal free fluid. No adnexal masses. FREE FLUID: None. . IMPRESSION: There is evidence of a sac without pole. Continuing beta HCG surveillance c ould be obtained to assess for early IUP. TECHNICAL DOCUMENTATION: JOB ID: [id number] SC-69 2010 [employer]- All Rights Reserved rev Reading location - IP/workstation name: [email or web address]
[2018-01-15 18:43] VITALS: BP 126/72
== END 2018-01-15 18:43 | disposition home or self-care (01) ==
LOC: ER 09:04 → EEVIPCON 09:04 → ER 18:43
DX: O26.91 Pregnancy related conditions, unspecified, first trimester (principal); E86.0 Dehydration; R42 Dizziness and giddiness; O26.851 Spotting complicating pregnancy, first trimester; O23.41 Unspecified infection of urinary tract in pregnancy, first trimester; O99.331 Smoking (tobacco) complicating pregnancy, first trimester; Z3A.01 Less than 8 weeks gestation of pregnancy
CPT/HCPCS: 99284; 96361; 96374; 36415; 87086; 84702; 83735; 84100; 85025; 80053; 81001; 80307; 76817; J1200; J3490 ×2; J7030; J7120; J8499

== ENCOUNTER 2018-01-21 09:36 | Emergency (ER) | payer SELFPAY ==
[2018-01-21] MEDS ORDERED: ACETAMINOPHEN 325 MG TABLET PO ONE (10:04)
[2018-01-21] MEDS ORDERED: PROMETHAZINE HCL INJ 50 MG/1 ML VIAL IM ONE (10:05)
--- NOTE | 2018-01-21 10:08 | ER Document Report ---
ED General - General Chief Complaint: Vag Bleeding, +preg <12wks Stated Complaint: VAGINAL BLEEDING Time Seen by Provider: 01/21/18 10:01 Mode of Arrival: Ambulatory Information source: Patient Notes: 32-year-old female 6 para 5 presents with complaints of vaginal bleeding. Patient states she started bleeding today with clots. Patient notes cramping sensation nausea vomiting. Patient states that she has not been taking the prescriptions written for her on her visit 3 days ago. Patient states she was not bleeding on the last visit even though this is documented in chart as the reason as to why her visit was extended and she was sent for an ultrasound at that time TRAVEL OUTSIDE OF THE [place] IN LAST 30 DAYS: No - HPI Onset: Just prior to arrival Onset/Duration: Sudden Quality of pain: Cramping Severity: Mild Pain Level: 1 Associated symptoms: Nausea, Vomiting, Other Exacerbated by: Denies Relieved by: Denies Similar symptoms previously: Yes Recently seen / treated by doctor: Yes - Related Data Allergies/Adverse Reactions: ketorolac tromethamine [From Toradol] Allergy (Verified 01/21/18 09:59) meperidine HCl [From Demerol] Allergy (Verified 01/21/18 09:59) metoclopramide HCl [From Reglan] Allergy (Verified 01/21/18 09:59) morphine [Morphine] Allergy (Verified 01/21/18 09:59) tramadol [Tramadol] Allergy (Verified 01/21/18 09:59) Hives hydroxyzine [From Vistaril] Adverse Reaction (Verified 01/21/18 09:59) Anxiety ondansetron HCl [From Zofran] Adverse Reaction (Verified 01/21/18 09:59) VOMITING Past Medical History - Social History Smoking Status: Current Every Day Smoker Cigarette use (# per day): Yes Chew tobacco use (# tins/day): No Smoking Education Provided: Yes - Patient counselled regarding cessation for 4 minutes Frequency of alcohol use: None Drug Abuse: None Family History: Arthritis, DM, Hyperlipidemia, Hypertension Patient has suicidal ideation: No Patient has homicidal ideation: No - Past Medical History Cardiac Medical History: Reports: Hx Hypertension Neurological Medical History: Reports: Hx Migraine Renal/ Medical History: Denies: Hx Peritoneal Dialysis Musculoskeltal Medical History: Reports Hx Musculoskeletal Trauma Psychiatric Medical History: Reports: Hx Anxiety, Hx Attention Deficit Hyperactivity Disorder, Hx Bipolar Disorder, Hx Depression, Hx Post Traumatic Stress Disorder Traumatic Medical History: Reports: Hx Fractures - nose Past Surgical History: Reports: Hx Abdominal Surgery - LAPROSCOPY, Hx Gynecologic Surgery - d&c, lap for endometriosis, Hx Nose Surgery - Reconstruction for fracture, Other - facial reconstruction - Immunizations Immunizations up to date: Yes Hx Diphtheria, Pertussis, Tetanus Vaccination: Yes - 2010 Review of Systems - Review of Systems Notes: REVIEW OF SYSTEMS: CONSTITUTIONAL : Denies fever, chills, or sweats. Denies recent illness. EENT: Denies eye, ear, throat, or mouth pain or symptoms. Denies nasal or sinus congestion or discharge. Denies throat, tongue, or mouth swelling or difficulty swallowing. CARDIOVASCULAR: Denies chest pain. Denies palpitations or racing or irregular heart beat. Denies ankle edema. RESPIRATORY: Denies cough, cold, or chest congestion. Denies shortness of breath, difficulty breathing, or wheezing. GASTROINTESTINAL: Admits to nausea vomiting abdominal cramping GENITOURINARY: Denies difficulty urinating, painful urination, burning, frequency, blood in urine, or discharge. FEMALE GENITOURINARY: Admits vaginal bleeding. MUSCULOSKELETAL: Denies back or neck pain or stiffness. Denies joint pain or swelling. SKIN: Denies rash, lesions or sores. HEMATOLOGIC : Denies easy bruising or bleeding. LYMPHATIC: Denies swollen, enlarged glands. NEUROLOGICAL: Denies confusion or altered mental status. Denies passing out or loss of consciousness. Denies dizziness or lightheadedness. Denies headache. Denies weakness or paralysis or loss of use of either side. Denies problems with gait or speech. Denies sensory loss, numbness, or tingling. Denies seizures. PSYCHIATRIC: Denies anxiety or stress. Denies depression, suicidal ideation, or homicidal ideation. ALL OTHER SYSTEMS REVIEWED AND NEGATIVE. PHYSICAL EXAMINATION: GENERAL: Well-appearing, well-nourished and in no acute distress. HEAD: Atraumatic, normocephalic. EYES: Pupils equal round and reactive to light, extraocular movements intact, conjunctiva are normal. ENT: Nares patent, oropharynx clear without exudates. Moist mucous membranes. NECK: Normal range of motion, supple without lymphadenopathy LUNGS: Breath sounds clear to auscultation bilaterally and equal. No wheezes rales or rhonchi. HEART: Regular rate and rhythm without murmurs ABDOMEN: Soft, nontender, nondistended abdomen. No guarding, no rebound. No masses appreciated. Female : deferred Musculoskeletal: Normal range of motion, no pitting or edema. No cyanosis. NEUROLOGICAL: Cranial nerves grossly intact. Normal speech, normal gait. Normal sensory, motor exams PSYCH: Normal mood, normal affect. SKIN: Warm, Dry, normal turgor, no rashes or lesions noted. Dictation was performed using [employer] voice recognition software Physical Exam - Vital signs Vitals: Temp Pulse Resp BP Pulse Ox 99.6 F 98 16 135/91 H 100 01/21/18 09:47 01/21/18 09:47 01/21/18 09:47 01/21/18 09:47 01/21/18 09:47 Course - Re-evaluation Re-evalutation: 01/21/18 10:07 Patient will be sent for an ultrasound, since his bleeding just started low suspicion for any life-threatening issues however there is always a concern for miscarriage 01/21/18 11:14 Patient's ultrasound notes gestational sac, not everything is developed yet to confirm the , with a history of vaginal bleeding there is obvious concern for miscarriage patient has been made aware of this she has been instructed to follow-up with health department or [employer] for further evaluation care After performing a Medical Screening Examination, I estimate there is LOW risk for ACUTE APPENDICITIS, BOWEL OBSTRUCTION, ACUTE CHOLECYSTITIS, PERFORATED DIVERTICULITIS, INCARCERATED HERNIA, PANCREATITIS, PELVIC INFLAMMATORY DISEASE, PERFORATED ULCER, ECTOPIC , or TUBO-OVARIAN ABSCESS, thus I consider the discharge disposition reasonable. Also, there is no evidence or peritonitis , sepsis, or toxicity. I have reevaluated this patient multiple times and no significant life threatening changes are noted. The patient and I have discussed the diagnosis and risks, and we agree with discharging home with close follow-up with the understanding that symptoms and presentations can change. We also discussed returning to the Emergency Department immediately if new or worsening symptoms occur. We have discussed the symptoms which are most concerning (e.g., bloody stool, fever, changing or worsening pain, vomiting) that necessitate immediate return. - Vital Signs Vital signs: Temp Pulse Resp BP Pulse Ox 99.6 F 98 16 135/91 H 100 01/21/18 09:47 01/21/18 09:47 01/21/18 09:47 01/21/18 09:47 01/21/18 09:47 - Diagnostic Test Radiology reviewed: Image reviewed - Transvaginal ultrasound notes gestational sac, Reports reviewed Discharge - Discharge Clinical Impression: First trimester Condition: Stable Disposition: HOME, SELF-CARE Instructions: Threatened Miscarriage ([facility]) Additional Instructions: Please take all prescriptions are provided to you appropriately Forms: Return to Work [facility] - Follow up in 3-5 days
[2018-01-21] MEDS ORDERED: DIPHENHYDRAMINE HCL 50 MG/ML VIAL IM ONE (10:48)
--- NOTE | 2018-01-21 11:06 | RADIOLOGY REPORT (SQ) ---
EXAM DESCRIPTION: U/S OB TRANSVAGINAL W/O DOP COMPLETED DATE/TIME: 01/21/2018 10:49 am REASON FOR STUDY: vaginal bleeding COMPARISON: 01/15/2018 TECHNIQUE: Transvaginal static and realtime grayscale images acquired of the pelvis. Additional leon cted spectral and color Doppler images recorded. All images stored on PACs. bHCG: Not available. LIMITATIONS: None. FINDINGS: UTERUS: No masses. No anomalies. GESTATIONAL SAC: Yes. YOLK SAC: Yes. POLE: No. RIGHT ADNEXA: Normal ovary with normal vascular flow. No adnexal free fluid. No adnexal masses. LEFT ADNEXA: Ovary not identified. No adnexal free fluid. No adnexal masses. FREE FLUID: None. OTHER: No other significant finding. IMPRESSION: POSSIBLE EARLY INTRAUTERINE . BHCG LEVEL NOT AVAILABLE FOR CORRELATION WITH US FINDINGS. CONSIDER F/U BHCG AND/OR ULTRASOUND FOR VERIFICATION AND TO EXCLUDE ECTOPIC . Trimester of : First - 0 to 13 weeks. TECHNICAL DOCUMENTATION: JOB ID: [id number] [employer]- All Rights Reserved Reading location - IP/workstation name: [email or web address]
[2018-01-21 11:22] VITALS: BP 131/88
[2018-01-21 11:23] LABS: APPEARANCE,URINE CLEAR; BILIRUBIN,URINE NEGATIVE (NEGATIVE); COLOR,URINE STRAW; GLUCOSE, URINE NEGATIVE (NEGATIVE); KETONES,URINE NEGATIVE (NEGATIVE); LEUKOCYTE ESTERASE,URINE NEGATIVE (NEGATIVE); NITRITE,URINE NEGATIVE (NEGATIVE); PROTEIN,URINE NEGATIVE (NEGATIVE); URINE SPECIFIC GRAVITY 1.004; UROBILINOGEN,URINE NEGATIVE mg/dL (<2.0)
== END 2018-01-21 11:16 | disposition home or self-care (01) ==
LOC: ER 09:36
DX: O20.9 Hemorrhage in early pregnancy, unspecified (principal); O21.9 Vomiting of pregnancy, unspecified; O26.891 Other specified pregnancy related conditions, first trimester; R10.9 Unspecified abdominal pain; O99.331 Smoking (tobacco) complicating pregnancy, first trimester; F17.210 Nicotine dependence, cigarettes, uncomplicated; Z71.6 Tobacco abuse counseling; O16.1 Unspecified maternal hypertension, first trimester; Z3A.00 Weeks of gestation of pregnancy not specified; Z88.8 Allergy status to other drugs, medicaments and biological substances; Z88.5 Allergy status to narcotic agent
CPT/HCPCS: 99406; 99284; 96372; 81001; 76817; J1200; J2550

== ENCOUNTER 2018-01-25 10:57 | Emergency (ER) | payer SELFPAY ==
--- NOTE | 2018-01-25 11:29 | ER Document Report ---
ED GI/ - General Chief Complaint: Vaginal Bleeding Stated Complaint: VAGINAL BLEEDING Time Seen by Provider: 01/25/18 11:29 Mode of Arrival: Ambulatory Information source: Patient Notes: 32 yo female with heavy vaginal bleeding, clots this am. Early , seen on 01-23 with US threatened miscareriage. bleedong worse. Quant not done on 01-23. No dysuria. No fever. TRAVEL OUTSIDE OF THE [place] IN LAST 30 DAYS: No - Related Data Allergies/Adverse Reactions: ketorolac tromethamine [From Toradol] Allergy (Verified 01/25/18 10:59) meperidine HCl [From Demerol] Allergy (Verified 01/25/18 10:59) metoclopramide HCl [From Reglan] Allergy (Verified 01/25/18 10:59) morphine [Morphine] Allergy (Verified 01/25/18 10:59) tramadol [Tramadol] Allergy (Verified 01/25/18 10:59) Hives hydroxyzine [From Vistaril] Adverse Reaction (Verified 01/25/18 10:59) Anxiety ondansetron HCl [From Zofran] Adverse Reaction (Verified 01/25/18 10:59) VOMITING Past Medical History - General Information source: Patient - Social History Smoking Status: Current Some Day Smoker Frequency of alcohol use: None Family History: Arthritis, DM, Hyperlipidemia, Hypertension - Past Medical History Cardiac Medical History: Reports: Hx Hypertension Neurological Medical History: Reports: Hx Migraine Renal/ Medical History: Denies: Hx Peritoneal Dialysis Musculoskeltal Medical History: Reports Hx Musculoskeletal Trauma Psychiatric Medical History: Reports: Hx Anxiety, Hx Attention Deficit Hyperactivity Disorder, Hx Bipolar Disorder, Hx Depression, Hx Post Traumatic Stress Disorder Traumatic Medical History: Reports: Hx Fractures - nose Past Surgical History: Reports: Hx Abdominal Surgery - LAPROSCOPY, Hx Gynecologic Surgery - d&c, lap for endometriosis, Hx Nose Surgery - Reconstruction for fracture, Other - facial reconstruction - Immunizations Immunizations up to date: Yes Hx Diphtheria, Pertussis, Tetanus Vaccination: Yes - 2010 Review of Systems - Review of Systems Constitutional: No symptoms reported EENT: No symptoms reported Cardiovascular: No symptoms reported Respiratory: No symptoms reported Gastrointestinal: No symptoms reported Genitourinary: No symptoms reported Female Genitourinary: See HPI Musculoskeletal: No symptoms reported Skin: No symptoms reported Hematologic/Lymphatic: No symptoms reported Neurological/Psychological: No symptoms reported Physical Exam - Vital signs Vitals: Temp Pulse Resp BP Pulse Ox 97.9 F 100 16 128/77 H 99 01/25/18 11:04 01/25/18 11:04 01/25/18 11:04 01/25/18 11:04 01/25/18 11:04 Interpretation: Normal - General General appearance: Appears well, Alert - HEENT Head: Normocephalic, Atraumatic Eyes: Normal Pupils: PERRL Neck: Supple - Respiratory Respiratory status: No respiratory distress Chest status: Nontender Breath sounds: Normal Chest palpation: Normal - Cardiovascular Rhythm: Regular Heart sounds: Normal auscultation Murmur: No - Abdominal Inspection: Normal Distension: No distension Bowel sounds: Normal Tenderness: Nontender Organomegaly: No organomegaly - Back Back: Normal, Nontender. No: CVA tenderness - Extremities General upper extremity: Normal inspection, Nontender, Normal color, Normal ROM , Normal temperature General lower extremity: Normal inspection, Nontender, Normal color, Normal ROM , Normal temperature, Normal weight bearing. No: Yovani's sign - Neurological Neuro grossly intact: Yes Cognition: Normal Orientation: AAOx4 [place] Coma Scale Eye Opening: Spontaneous [place] Coma Scale Verbal: Oriented [place] Coma Scale Motor: Obeys Commands Ron Coma Scale Total: 15 Speech: Normal Motor strength normal: LUE, RUE, LLE, RLE Sensory: Normal - Psychological Associated symptoms: Normal affect, Normal mood - Skin Skin Temperature: Warm Skin Moisture: Dry Skin Color: Normal Course - Re-evaluation Re-evalutation: 01/25/18 13:43 quantitative is going down so having miscarriage. Will order oxy IR 5mg for the pain. 01/25/18 15:08 gestational sac gone on US, left ovary not seen. No retained products, thickened endometrium .no free fluid. 01/25/18 15:09 B positive, does not need rhogam. Not dizzy when stands 01/25/18 15:10 01/25/18 15:14 - Vital Signs Vital signs: Temp Pulse Resp BP Pulse Ox 97.9 F 80 16 123/74 99 01/25/18 15:27 01/25/18 15:27 01/25/18 15:27 01/25/18 15:27 01/25/18 11:04 - Laboratory Result Diagrams: 01/25/18 12:26 Laboratory results interpreted by me: 01/25/18 01/25/18 11:26 12:26 Hgb 11.0 L Hct 33.1 L RDW 15.0 H Eosinophils % 6.7 H Beta HCG, Quant 58916.00 H Discharge - Discharge Clinical Impression: Spontaneous , Vaginal bleeding Condition: Good Disposition: HOME, SELF-CARE Instructions: Ibuprofen (General) ([facility]), Miscarriage ([facility]), Oral Narcotic Medication ([facility]), Vaginal Bleeding ([facility]) Additional Instructions: to er if bleeding worse or pain worse plenty of fluids see obgyn until the HCG returns to 0 Prescriptions: Hydrocodone Bit/Acetaminophen [Hydrocodon-Acetaminophen 5-325] 1 each PO Q4HP PRN #10 tablet PRN Reason: Ibuprofen [Motrin 800 mg Tablet] 800 mg PO Q8HP PRN #30 tablet PRN Reason: Forms: Return to Work Referrals: HORACIO RUSHING MD [ACTIVE STAFF] - Follow up in 1 week
[2018-01-25] MEDS ORDERED: ACETAMINOPHEN 325 MG TABLET PO ONE (12:30)
[2018-01-25 12:38] LABS: ABSOLUTE EOSINOPHILS # (AUTO) 0.3 10^3/uL (0.0-0.6); ABSOLUTE LYMPHOCYTES (AUTO) 1.3 10^3/uL (0.5-4.7); ABSOLUTE MONOCYTES (AUTO) 0.3 10^3/uL (0.1-1.4); ABSOLUTE NEUT (AUTO) 2.8 10^3/uL (1.7-8.2); BASOPHILS % (AUTO) 0.6 % (0-2); EOSINOPHILS % (AUTO) 6.7 % (0-6); HEMATOCRIT 33.1 % (36.0-47.0); MEAN CORPUSCULAR HEMOGLOBIN 28.5 pg (27.0-33.4); MEAN CORPUSCULAR HGB CONC 33.3 g/dL (32.0-36.0); MEAN CORPUSCULAR VOLUME 86 fl (80-97); MONOCYTES % (AUTO) 6.3 % (3-13); PLATELET COUNT 177 10^3/uL (150-450); RED BLOOD COUNT 3.88 10^6/uL (3.72-5.28); SEGMENTED NEUTROPHILS % (AUTO) 59.4 % (42-78); TOTAL CELLS COUNTED % (AUTO) 100 %; WHITE BLOOD COUNT 4.8 10^3/uL (4.0-10.5)
[2018-01-25] MEDS ORDERED: OXYCODONE HCL IR 5 MG TABLET PO ONE (13:42)
--- NOTE | 2018-01-25 14:15 | RADIOLOGY REPORT (SQ) ---
EXAM DESCRIPTION: U/S OB TRANSVAGINAL W/O DOP COMPLETED DATE/TIME: 01/25/2018 2:01 pm REASON FOR STUDY: vag bleeding , COMPARISON: 01/21/2018 and 01/15/2018. TECHNIQUE: Transvaginal static and realtime grayscale images acquired of the pelvis. Additional leon cted spectral and color Doppler images recorded. All images stored on PACs. BHCG: Not available. LIMITATIONS: None. FINDINGS: UTERUS: Heterogenous thickened endometrium. Previously seen intrauterine gestational sac is no longer present. No abnormal fluid collection. RIGHT ADNEXA: Normal ovary with normal vascular flow. No adnexal free fluid. No adnexal masses. LEFT ADNEXA: Ovary not identified. No adnexal free fluid. No adnexal masses. FREE FLUID: None. OTHER: No other significant finding. IMPRESSION: PREVIOUSLY SEEN INTRAUTERINE GESTATIONAL SAC IS NO LONGER PRESENT. FINDINGS ARE CONSIST ENT WITH IN PROGRESS. TECHNICAL DOCUMENTATION: JOB ID: [id number] [employer]- All Rights Reserved Reading location - IP/workstation name: [email or web address]
[2018-01-25 15:29] VITALS: BP 123/74
== END 2018-01-25 15:29 | disposition home or self-care (01) ==
LOC: ER 10:57
DX: O03.9 Complete or unspecified spontaneous abortion without complication (principal); F17.200 Nicotine dependence, unspecified, uncomplicated; Z88.6 Allergy status to analgesic agent
CPT/HCPCS: 36415; 76817; 84702; 85025; 86900; 86901; 99284

== ENCOUNTER 2018-02-03 17:16 | Emergency (ER) | payer SELFPAY ==
[2018-02-03 17:37] VITALS: BP 135/95
[2018-02-03] MEDS ORDERED: LIDOCAINE 2% VISCOUS SOLN 20 ML UDCUP PO ONE (18:16)
[2018-02-03] MEDS ORDERED: CLONAZEPAM 1 MG TABLET PO ONE (18:16)
--- NOTE | 2018-02-03 18:20 | ER Document Report ---
HPI - HPI Pain Level: 3 Notes: Patient is a 32-year-old female with a history of anxiety, depression, hypertension who presents to the ED complaining of dental pain #303-4 days. Patient states that she also needs some medication refills until she can see her primary care doctor early next week. Patient states that she has been out of her medications. She has not noticed any purulent discharge or severe swelling of her face. She is eating and drinking without any difficulties. She is urinating normally and having normal bowel movements. She has not called a dentist. Patient states that her chronic issues have been status quo and she has been tolerating her medicines well without any difficulties or side effects to note. She has no suicidal or homicidal ideations or thoughts. No visual or auditory hallucinations. Denies any headache, fever, changes in vision/speech/mentation/hearing, URI, sore throat, chest pain, palpitations, syncope, cough, shortness of breath, wheeze, dyspnea, abdominal pain, nausea/ vomiting/diarrhea, urinary retention, dysuria, hematuria, or rash. - ROS Systems Reviewed and Negative: Yes All other systems reviewed and negative - REPRODUCTIVE Reproductive: REPORTS: : Past Medical History - Social History Smoking Status: Unknown if Ever Smoked Family History: Arthritis, DM, Hyperlipidemia, Hypertension - Past Medical History Cardiac Medical History: Reports: Hx Hypertension Neurological Medical History: Reports: Hx Migraine Renal/ Medical History: Denies: Hx Peritoneal Dialysis Musculoskeltal Medical History: Reports Hx Musculoskeletal Trauma Psychiatric Medical History: Reports: Hx Anxiety, Hx Attention Deficit Hyperactivity Disorder, Hx Bipolar Disorder, Hx Depression, Hx Post Traumatic Stress Disorder Traumatic Medical History: Reports: Hx Fractures - nose Past Surgical History: Reports: Hx Abdominal Surgery - LAPROSCOPY, Hx Gynecologic Surgery - d&c, lap for endometriosis, Hx Nose Surgery - Reconstruction for fracture, Other - facial reconstruction - Immunizations Immunizations up to date: Yes Hx Diphtheria, Pertussis, Tetanus Vaccination: Yes - 2010 Vertical Provider Document - CONSTITUTIONAL Agree With Documented VS: Yes Notes: PHYSICAL EXAMINATION: GENERAL: Well-appearing, well-nourished and in no acute distress. HEAD: Atraumatic, normocephalic. EYES: Pupils equal round and reactive to light, extraocular movements intact, sclera anicteric, conjunctiva are normal. ENT: EAC clear b/l. TM's intact b/l without erythema, fluid, or perforation. Nares patent and without discharge. oropharynx clear without exudates. No tonsilar hypertrophy or erythema. Moist mucous membranes. No sinus tenderness. Uvula midline. No palatine shift. No tongue protrusion. No respiratory compromise. Mouth: Poor dentition. + moderate/severe decay and mild gingivitis. No obvious abscess or discharge noted. No facial swelling. + tenderness to tooth #30. NECK: Normal range of motion, supple without lymphadenopathy. No rigidity/ meningismus. LUNGS: Breath sounds clear to auscultation bilaterally and equal. No wheezes rales or rhonchi. HEART: Regular rate and rhythm without murmurs, rubs, gallops. NEUROLOGICAL: Cranial nerves grossly intact. Normal speech, normal gait. Normal sensory, motor exams PSYCH: anxious, normal affect. SKIN: Warm, Dry, normal turgor, no rashes or lesions noted. - INFECTION CONTROL TRAVEL OUTSIDE OF THE [place] IN LAST 30 DAYS: No Course - Re-evaluation Re-evalutation: 02/03/18 18:23 Patient is an afebrile, well-hydrated, 32-year-old female who presents to the ED with dental pain, suspect nerve root etiology versus infection. Vitals are acceptable. PE is otherwise unremarkable. No I&D, labs, or imaging warranted at this time based on H&P. Viscous lidocaine dispensed today. I will send her home with a prescription for penicillin. Low suspicion for any meningitis, sepsis, peritonsillar/pharyngeal abscess, respiratory compromise, Carlos's, temporal arteritis, or other emergent systemic condition at this time. Patient is aware this condition can change from initial presentation and she needs to monitor symptoms closely. Med refills given only until early next week (#4) of each medication. Conservative measures otherwise for symptoms. Call to schedule an appointment with a dentist for further evaluation and management. Recheck with your PCM this week as well. Return to the ED with any worsening/ concerning symptoms otherwise as reviewed in discharge. Patient is in agreement. - Vital Signs Vital signs: Temp Pulse Resp BP Pulse Ox 99.0 F 96 18 135/95 H 100 02/03/18 17:34 02/03/18 17:34 02/03/18 17:34 02/03/18 17:34 02/03/18 17:34 Discharge - Discharge Clinical Impression: Pain, dental, Medication refill Condition: Stable Disposition: HOME, SELF-CARE Instructions: [facility], Clindamycin ([facility]), Toothache ([facility]) Additional Instructions: [place] and floss twice daily Maintain fluid intake Take antibiotics as directed Mouthwash, salt water gargles, peroxide rinse as needed Tylenol/ibuprofen as needed Recheck with PCM this week Call today/tomorrow and schedule an appointment with your dentist for further evaluation Return to the ED with any worsening symptoms and/or development of fever, headache, facial swelling, swelling of lips/tongue/throat, trouble swallowing, drooling, hoarseness, neck pain/stiffness, chest pain, palpitations, syncope, shortness of breath, trouble breathing, abdominal pain, n/v/d, numbness/tingling , or other worsening symptoms that are concerning to you. Prescriptions: Clindamycin HCl [Cleocin 300 mg Capsule] 300 mg PO TID #30 capsule Clonazepam 1 mg PO DAILY PRN #4 tablet PRN Reason: Dextroamphetamine/Amphetamine [Adderall Xr 30 mg Capsule] 30 mg PO DAILY #4 cap.er.24h Hydrochlorothiazide 12.5 mg PO DAILY #4 capsule Lisinopril 40 mg PO DAILY #4 tablet Forms: Elevated Blood Pressure Referrals: [facility] [Provider Group] - Follow up in 1 week
== END 2018-02-03 18:27 | disposition home or self-care (01) ==
LOC: ER 17:16
DX: R76.0 Raised antibody titer (principal); K08.89 Other specified disorders of teeth and supporting structures; K02.9 Dental caries, unspecified; K05.10 Chronic gingivitis, plaque induced; I10 Essential (primary) hypertension; Z79.899 Other long term (current) drug therapy
CPT/HCPCS: 99282; J3490

== ENCOUNTER 2018-02-18 23:22 | Emergency (ER) | payer SELFPAY ==
[2018-02-18 23:56] VITALS: BP 118/69
[2018-02-19] MEDS ORDERED: IBUPROFEN 800 MG TABLET PO ONE (01:23)
--- NOTE | 2018-02-19 01:23 | ER Document Report ---
ED Medical Screen (RME) - General Chief Complaint: Sore Throat Stated Complaint: FEVER Time Seen by Provider: 02/19/18 01:19 Mode of Arrival: Ambulatory Information source: Patient Notes: Patient is a 32-year-old female who presents with chief complaint of sore throat and fever 1 day. Patient reports history of strep. Patient denies any other symptoms. Patient speaking in full sentences with a normal voice. Patient requested pain medication. Offered patient Tylenol or Motrin. Patient upset stating that she does not want anything by mouth. Will order p.o. ibuprofen so that will be available if patient changes her mind. I have greeted and performed a rapid initial assessment of this patient. A comprehensive ED assessment and evaluation of the patient, analysis of test results and completion of the medical decision making process will be conducted by additional ED providers. Dictation of this chart was performed using voice recognition software; therefore, there may be some unintended grammatical errors. Exam: Tonsils are swollen bilaterally more so to the left side. No exudates noted. Uvula midline. No peritonsillar abscess noted. TRAVEL OUTSIDE OF THE [place] IN LAST 30 DAYS: No - Related Data Allergies/Adverse Reactions: ketorolac tromethamine [From Toradol] Allergy (Verified 02/11/18 17:08) meperidine HCl [From Demerol] Allergy (Verified 02/11/18 17:08) metoclopramide HCl [From Reglan] Allergy (Verified 02/11/18 17:08) morphine [Morphine] Allergy (Verified 02/11/18 17:08) tramadol [Tramadol] Allergy (Verified 02/11/18 17:08) Hives hydroxyzine [From Vistaril] Adverse Reaction (Verified 02/11/18 17:08) Anxiety ondansetron HCl [From Zofran] Adverse Reaction (Verified 02/11/18 17:08) VOMITING Past Medical History - Past Medical History Cardiac Medical History: Reports: Hx Hypertension Neurological Medical History: Reports: Hx Migraine Renal/ Medical History: Denies: Hx Peritoneal Dialysis Musculoskeltal Medical History: Reports Hx Musculoskeletal Trauma Psychiatric Medical History: Reports: Hx Anxiety, Hx Attention Deficit Hyperactivity Disorder, Hx Bipolar Disorder, Hx Depression, Hx Post Traumatic Stress Disorder Traumatic Medical History: Reports: Hx Fractures - nose Past Surgical History: Reports: Hx Abdominal Surgery - LAPROSCOPY, Hx Gynecologic Surgery - d&c, lap for endometriosis, Hx Nose Surgery - Reconstruction for fracture, Other - facial reconstruction - Immunizations Immunizations up to date: Yes Hx Diphtheria, Pertussis, Tetanus Vaccination: Yes - 2010 Physical Exam - Vital signs Vitals: Temp Pulse Resp BP Pulse Ox 99.1 F 96 18 118/69 100 02/18/18 23:54 02/18/18 23:54 02/18/18 23:54 02/18/18 23:54 02/18/18 23:54 Course - Vital Signs Vital signs: Temp Pulse Resp BP Pulse Ox 99.1 F 96 18 118/69 100 02/18/18 23:54 02/18/18 23:54 02/18/18 23:54 02/18/18 23:54 02/18/18 23:54
== END 2018-02-19 01:30 | disposition left against medical advice (07) ==
LOC: ER 23:22
DX: J02.9 Acute pharyngitis, unspecified (principal); J35.1 Hypertrophy of tonsils; R50.9 Fever, unspecified; I10 Essential (primary) hypertension; Z88.8 Allergy status to other drugs, medicaments and biological substances; Z88.5 Allergy status to narcotic agent; Z53.20 Procedure and treatment not carried out because of patient's decision for unspecified reasons
CPT/HCPCS: 87070; 87880; 99281

== ENCOUNTER 2018-02-20 08:57 | Emergency (ER) | payer SELFPAY ==
[2018-02-20] MEDS ORDERED: NORMAL SALINE 1000 ML 1,000 ML IV ONE (09:30)
--- NOTE | 2018-02-20 09:34 | ER Document Report ---
ED Medical Screen (RME) - General Chief Complaint: Allergic Reaction Stated Complaint: POSSIBLE MEDICATION REACTION Time Seen by Provider: 02/20/18 09:27 Mode of Arrival: Ambulatory Information source: Patient Notes: 32 yr old female presents with concerns for confusion. pt notes that she had a recent miscarriage, and beleives she lost alot of blood. pt was seen here for rtonsillitis a few days prior but eloped. pt noted to have extensive psychiatric history pt notes her bp is low, 124/78 currently I have greeted and performed a rapid initial assessment of this patient. A comprehensive ED assessment and evaluation of the patient, analysis of test results and completion of the medical decision making process will be conducted by additional ED providers. PHYSICAL EXAMINATION: GENERAL: Well-appearing, well-nourished and in no acute distress. HEAD: Atraumatic, normocephalic. EYES: Pupils equal round extraocular movements intact, conjunctiva are normal. ENT: Nares patent NECK: Normal range of motion LUNGS: No respiratory distress Musculoskeletal: Normal range of motion NEUROLOGICAL: Normal speech, normal gait. PSYCH: Normal mood, normal affect. SKIN: Warm, Dry, normal turgor, no rashes or lesions noted. TRAVEL OUTSIDE OF THE [place] IN LAST 30 DAYS: No - Related Data Allergies/Adverse Reactions: ketorolac tromethamine [From Toradol] Allergy (Verified 02/11/18 17:08) meperidine HCl [From Demerol] Allergy (Verified 02/11/18 17:08) metoclopramide HCl [From Reglan] Allergy (Verified 02/11/18 17:08) morphine [Morphine] Allergy (Verified 02/11/18 17:08) tramadol [Tramadol] Allergy (Verified 02/11/18 17:08) Hives hydroxyzine [From Vistaril] Adverse Reaction (Verified 02/11/18 17:08) Anxiety ondansetron HCl [From Zofran] Adverse Reaction (Verified 02/11/18 17:08) VOMITING Past Medical History - Social History Frequency of alcohol use: None Drug Abuse: None - Past Medical History Cardiac Medical History: Reports: Hx Hypertension Neurological Medical History: Reports: Hx Migraine Renal/ Medical History: Denies: Hx Peritoneal Dialysis Musculoskeltal Medical History: Reports Hx Musculoskeletal Trauma Psychiatric Medical History: Reports: Hx Anxiety, Hx Attention Deficit Hyperactivity Disorder, Hx Bipolar Disorder, Hx Depression, Hx Post Traumatic Stress Disorder Traumatic Medical History: Reports: Hx Fractures - nose Past Surgical History: Reports: Hx Abdominal Surgery - LAPROSCOPY, Hx Gynecologic Surgery - d&c, lap for endometriosis, Hx Nose Surgery - Reconstruction for fracture, Other - facial reconstruction - Immunizations Immunizations up to date: Yes Hx Diphtheria, Pertussis, Tetanus Vaccination: Yes - 2010 Physical Exam - Vital signs Vitals: Temp Pulse Resp BP Pulse Ox 98.9 F 128 H 22 H 124/78 100 02/20/18 09:03 02/20/18 09:03 02/20/18 09:03 02/20/18 09:03 02/20/18 09:03 Course - Vital Signs Vital signs: Temp Pulse Resp BP Pulse Ox 98.9 F 128 H 22 H 124/78 100 02/20/18 09:03 02/20/18 09:03 02/20/18 09:03 02/20/18 09:03 02/20/18 09:03
[2018-02-20 10:29] LABS: APPEARANCE,URINE CLEAR; BILIRUBIN,URINE NEGATIVE (NEGATIVE); COLOR,URINE STRAW; GLUCOSE, URINE NEGATIVE (NEGATIVE); KETONES,URINE NEGATIVE (NEGATIVE); LEUKOCYTE ESTERASE,URINE NEGATIVE (NEGATIVE); NITRITE,URINE NEGATIVE (NEGATIVE); PROTEIN,URINE NEGATIVE (NEGATIVE); URINE SPECIFIC GRAVITY 1.006; UROBILINOGEN,URINE NEGATIVE mg/dL (<2.0)
[2018-02-20] MEDS ORDERED: DIPHENHYDRAMINE HCL 25 MG CAPSULE PO ONE (10:35)
--- NOTE | 2018-02-20 10:54 | ER Document Report ---
ED General - General Chief Complaint: Allergic Reaction Stated Complaint: POSSIBLE MEDICATION REACTION Time Seen by Provider: 02/20/18 09:27 Mode of Arrival: Ambulatory Information source: Patient TRAVEL OUTSIDE OF THE [place] IN LAST 30 DAYS: No - HPI Onset: This morning Onset/Duration: Gradual Quality of pain: No pain Associated symptoms: Fever - 2 DAYS AGO, LOW-GRADE, Weakness Exacerbated by: Other - ANY ACTIVITY Relieved by: Denies Similar symptoms previously: Yes - INTERMITTENT, LONG-STANDING Recently seen / treated by doctor: No - TRIED TO WALK IN TODAY, WAS REFERRED TO E.D. - Related Data Allergies/Adverse Reactions: ketorolac tromethamine [From Toradol] Allergy (Verified 02/20/18 10:33) meperidine HCl [From Demerol] Allergy (Verified 02/20/18 10:33) metoclopramide HCl [From Reglan] Allergy (Verified 02/20/18 10:33) morphine [Morphine] Allergy (Verified 02/20/18 10:33) tramadol [Tramadol] Allergy (Verified 02/20/18 10:33) Hives hydroxyzine [From Vistaril] Adverse Reaction (Verified 02/20/18 10:33) Anxiety ondansetron HCl [From Zofran] Adverse Reaction (Verified 02/20/18 10:33) VOMITING Past Medical History - General Information source: Patient - Social History Smoking Status: Current Every Day Smoker Frequency of alcohol use: None Drug Abuse: None Lives with: Friend Family History: Arthritis, DM, Hyperlipidemia, Hypertension Patient has suicidal ideation: No Patient has homicidal ideation: No - Past Medical History Cardiac Medical History: Reports: Hx Hypertension Pulmonary Medical History: Reports: None EENT Medical History: Reports: None Neurological Medical History: Reports: Hx Migraine Endocrine Medical History: Reports: None Renal/ Medical History: Reports: None. Denies: Hx Peritoneal Dialysis Malignancy Medical History: Reports: None GI Medical History: Reports: None Musculoskeltal Medical History: Reports Hx Musculoskeletal Trauma Psychiatric Medical History: Reports: Hx Anxiety, Hx Attention Deficit Hyperactivity Disorder, Hx Bipolar Disorder, Hx Depression, Hx Post Traumatic Stress Disorder Traumatic Medical History: Reports: Hx Fractures - nose Past Surgical History: Reports: Hx Abdominal Surgery - LAPROSCOPY, Hx Gynecologic Surgery - d&c, lap for endometriosis, Hx Nose Surgery - Reconstruction for fracture, Other - facial reconstruction - Immunizations Immunizations up to date: Yes Hx Diphtheria, Pertussis, Tetanus Vaccination: Yes - 2010 Review of Systems - Review of Systems Constitutional: Weakness, Weight loss EENT: Throat pain Cardiovascular: No symptoms reported Respiratory: No symptoms reported Gastrointestinal: No symptoms reported Genitourinary: No symptoms reported Female Genitourinary: No symptoms reported Musculoskeletal: No symptoms reported Skin: No symptoms reported Neurological/Psychological: Depression Physical Exam - Vital signs Vitals: Temp Pulse Resp BP Pulse Ox 98.9 F 128 H 22 H 124/78 100 02/20/18 09:03 02/20/18 09:03 02/20/18 09:03 02/20/18 09:03 02/20/18 09:03 Interpretation: Tachycardic, Tachypneic. No: Hypotensive, Febrile - General General appearance: Appears well, Alert, Anxious In distress: None - HEENT Head: Normocephalic Eyes: Normal Conjunctiva: Normal Ears: Normal Nasal: Normal Mouth/Lips: Normal Mucous membranes: Dry - SLIGHTLY Pharynx: Erythema - TONSILS. No: Exudate Neck: Normal - Respiratory Respiratory status: No respiratory distress Breath sounds: Normal - Cardiovascular Rhythm: Regular Heart sounds: Normal auscultation Murmur: No - Abdominal Inspection: Normal Distension: No distension - Back Back: Normal - Extremities General upper extremity: Normal inspection General lower extremity: Normal inspection. No: Tender, Edema - Neurological Neuro grossly intact: Yes Cognition: Normal Orientation: AAOx4 - Psychological Associated symptoms: Agitated, Anxious - VERY CONCERNED ABOUT PHYSICAL HEALTH, C/O MUCH STRESS, OVER-WORK, Restlessness - Skin Skin Temperature: Warm Skin Moisture: Dry Skin Color: Normal Skin Turgor: Elastic Course - Vital Signs Vital signs: Temp Pulse Resp BP Pulse Ox 98.7 F 88 18 96/61 L 100 02/20/18 17:41 02/20/18 17:41 02/20/18 17:41 02/20/18 17:41 02/20/18 17:41 - Laboratory Result Diagrams: 02/20/18 13:00 02/20/18 13:00 Laboratory results interpreted by me: 02/20/18 02/20/18 02/20/18 09:45 13:00 13:00 WBC 3.7 L Hgb 11.9 L Hct 35.8 L RDW 14.1 H Plt Count 149 L Seg Neutrophils % 24.2 L Lymphocytes % 54.5 H Monocytes % 13.9 H Eosinophils % 6.8 H Absolute Neutrophils 0.9 L Total Protein 8.6 H Beta HCG, Quant 7.00 H Urine Ascorbic Acid 20 H Discharge - Discharge Clinical Impression: Dehydration, Anxiety Gastritis Qualifiers: Gastritis type: unspecified gastritis Chronicity: acute Gastritis bleeding: without bleeding Qualified Code(s): K29.00 - Acute gastritis without bleeding Condition: Stable Disposition: HOME, SELF-CARE Instructions: Dehydration ([facility]), Gastritis ([facility]), Acid-Suppressing Medication ( [facility]) Additional Instructions: DRINK PLENTY OF WATER, ESPECIALLY WHEN YOU ARE WORKING IN HOT CONDITIONS. STOP TAKING HYDROCHLOROTHIAZIDE. TAKE AN ACID GARDENIA SUCH ZANTAC OR TAGAMET TO REDUCE EXCESS ACID IN STOMACH. CONTINUE ALL OTHER MEDICATIONS DIRECTED. EAT REGULAR MEALS. FOLLOW UP WITH YOUR PRIMARY CARE PROVIDER. Referrals: YAMILEX CASTILLO MD [NO LOCAL MD] - Follow up as needed
[2018-02-20 13:15] LABS: ABSOLUTE EOSINOPHILS # (AUTO) 0.3 10^3/uL (0.0-0.6); ABSOLUTE MONOCYTES (AUTO) 0.5 10^3/uL (0.1-1.4); ABSOLUTE NEUT (AUTO) 0.9 10^3/uL (1.7-8.2); BASOPHILS % (AUTO) 0.6 % (0-2); EOSINOPHILS % (AUTO) 6.8 % (0-6); HEMATOCRIT 35.8 % (36.0-47.0); HEMOGLOBIN 11.9 g/dL (12.0-15.5); LYMPHOCYTES % (AUTO) 54.5 % (13-45); MEAN CORPUSCULAR HGB CONC 33.2 g/dL (32.0-36.0); MEAN CORPUSCULAR VOLUME 85 fl (80-97); MONOCYTES % (AUTO) 13.9 % (3-13); PLATELET COUNT 149 10^3/uL (150-450); RED BLOOD COUNT 4.24 10^6/uL (3.72-5.28); RED CELL DISTRIBUTION WIDTH 14.1 % (11.5-14.0); SEGMENTED NEUTROPHILS % (AUTO) 24.2 % (42-78); TOTAL CELLS COUNTED % (AUTO) 100 %; WHITE BLOOD COUNT 3.7 10^3/uL (4.0-10.5)
[2018-02-20 13:38] LABS: ALANINE AMINOTRANSFERASE 26 U/L (9-52); ALKALINE PHOSPHATASE 48 U/L (38-126); ANION GAP 14 (5-19); ASPARTATE AMINO TRANSFERASE 19 U/L (14-36); BILIRUBIN,DIRECT 0.3 mg/dL (0.0-0.4); BILIRUBIN,TOTAL 0.9 mg/dL (0.2-1.3); BLOOD UREA NITROGEN 14 mg/dL (7-20); CALCIUM 9.8 mg/dL (8.4-10.2); CARBON DIOXIDE 23 mmol/L (22-30); CHLORIDE 107 mmol/L (98-107); GLUCOSE 87 mg/dL (75-110); POTASSIUM 3.9 mmol/L (3.6-5.0); SODIUM 143.9 mmol/L (137-145); TOTAL PROTEIN 8.6 g/dL (6.3-8.2)
[2018-02-20] MEDS ORDERED: PROMETHAZINE HCL 25 MG TABLET PO ONE (14:10)
--- NOTE | 2018-02-20 17:47 | RADIOLOGY REPORT (SQ) ---
EXAM DESCRIPTION: U/S ABDOMEN LIMITED W/O DOP COMPLETED DATE/TIME: 02/20/2018 4:12 pm REASON FOR STUDY: RUQ PAIN, NAUSEA COMPARISON: CT 2017 TECHNIQUE: Dynamic and static grayscale images acquired of the abdomen and recorded on PACS. Chapiso brennon selected color Doppler and spectral images recorded. LIMITATIONS: None. FINDINGS: PANCREAS: No masses. Visualized pancreatic duct normal caliber. LIVER: No masses. Echotexture normal. LIVER VASCULATURE: Normal directional flow of the main portal vein and hepatic veins. GALLBLADDER: No stones. Normal wall thickness. No pericholecystic fluid. ULTRASOUND-DETECTED PAUL'S SIGN: Negative. INTRAHEPATIC DUCTS AND COMMON DUCT: CBD and intrahepatic ducts normal caliber. No filling defects. INFERIOR VENA CAVA: Normal flow. AORTA: No aneurysm. RIGHT KIDNEY: Normal size. Normal echogenicity. No solid or suspicious masses. No hydronephrosis. No calcifications. PERITONEAL AND RIGHT PLEURAL SPACE: No ascites or effusions. OTHER: No other significant findings. IMPRESSION: NORMAL RIGHT UPPER QUADRANT ULTRASOUND. TECHNICAL DOCUMENTATION: JOB ID: [id number] 1970 [employer]- All Rights Reserved Reading location - IP/workstation name: [email or web address]
[2018-02-20 18:20] VITALS: BP 96/55
== END 2018-02-20 19:41 | disposition home or self-care (01) ==
LOC: ER 08:57
DX: F41.9 Anxiety disorder, unspecified (principal); E86.0 Dehydration; K29.00 Acute gastritis without bleeding; R53.1 Weakness; F32.9 Major depressive disorder, single episode, unspecified; R07.0 Pain in throat; F17.200 Nicotine dependence, unspecified, uncomplicated; Z88.8 Allergy status to other drugs, medicaments and biological substances; Z88.5 Allergy status to narcotic agent
CPT/HCPCS: 36415; 76705; 80053; 81001; 84443; 84702; 85025; 99284

== ENCOUNTER 2018-03-06 05:38 | Emergency (ER) | payer SELFPAY ==
--- NOTE | 2018-03-06 06:29 | ER Document Report ---
ED GI/ - General Mode of Arrival: Ambulatory Information source: Patient TRAVEL OUTSIDE OF THE [place]. IN LAST 30 DAYS: No - General Chief Complaint: Vomiting/Diarrhea Stated Complaint: VOMITING Time Seen by Provider: 03/06/18 06:09 Notes: Patient is a 32 year old female with anxiety and ADHD presents to the emergency department complaining of multiple symptoms including nausea, vomiting, diarrhea , abdominal pain and back pain onset approximately 24 hours ago. Patient states she has not been able to keep any food, fluids, or medications down. At bedside , patient states she no longer has any back or abdominal pain. She further denies numbness or tingling, dysuria, hematemesis, hematuria, or fevers. Patient is currently taking Adderall, Klonopin and Zantac. (WALLACE,TAMAYA) - Related Data Allergies/Adverse Reactions: ketorolac tromethamine [From Toradol] Allergy (Verified 02/20/18 10:33) meperidine HCl [From Demerol] Allergy (Verified 02/20/18 10:33) metoclopramide HCl [From Reglan] Allergy (Verified 02/20/18 10:33) morphine [Morphine] Allergy (Verified 02/20/18 10:33) tramadol [Tramadol] Allergy (Verified 02/20/18 10:33) Hives hydroxyzine [From Vistaril] Adverse Reaction (Verified 02/20/18 10:33) Anxiety ondansetron HCl [From Zofran] Adverse Reaction (Verified 02/20/18 10:33) VOMITING Past Medical History - General Information source: Patient - Social History Smoking Status: Current Every Day Smoker Cigarette use (# per day): Yes Chew tobacco use (# tins/day): No Frequency of alcohol use: None Family History: Arthritis, DM, Hyperlipidemia, Hypertension - Past Medical History Cardiac Medical History: Reports: Hx Hypertension Neurological Medical History: Reports: Hx Migraine Musculoskeletal Medical History: Reports Hx Musculoskeletal Trauma Psychiatric Medical History: Reports: Hx Anxiety, Hx Attention Deficit Hyperactivity Disorder, Hx Bipolar Disorder, Hx Depression, Hx Post Traumatic Stress Disorder Traumatic Medical History: Reports: Hx Fractures - nose Past Surgical History: Reports: Hx Abdominal Surgery - LAPROSCOPY, Hx Gynecologic Surgery - d&c, lap for endometriosis, Hx Nose Surgery - Reconstruction for fracture, Other - facial reconstruction - Immunizations Immunizations up to date: Yes Hx Diphtheria, Pertussis, Tetanus Vaccination: Yes - 2010 Review of Systems - Review of Systems Constitutional: No symptoms reported EENT: No symptoms reported Cardiovascular: No symptoms reported Respiratory: No symptoms reported Gastrointestinal: See HPI, Diarrhea, Nausea, Vomiting Genitourinary: No symptoms reported Female Genitourinary: No symptoms reported Musculoskeletal: See HPI, Back pain Skin: No symptoms reported Hematologic/Lymphatic: No symptoms reported Neurological/Psychological: No symptoms reported -: Yes All other systems reviewed and negative Physical Exam - Vital signs Vitals: Temp Pulse Resp BP Pulse Ox 98.3 F 86 16 125/90 H 100 03/06/18 05:43 03/06/18 05:43 03/06/18 05:43 03/06/18 05:43 03/06/18 05:43 - Notes Notes: GENERAL: Alert, interacts well. No acute distress. HEAD: Normocephalic, atraumatic. EYES: Pupils equal, round, and reactive to light. Extraocular movements intact. ENT: Oral mucosa moist, tongue midline. NECK: Full range of motion. Supple. Trachea midline. LUNGS: Clear to auscultation bilaterally, no wheezes, rales, or rhonchi. No respiratory distress. HEART: Regular rate and rhythm. No murmurs, gallops, or rubs. ABDOMEN: Soft, non-tender. Non-distended. Bowel sounds present in all 4 quadrants. EXTREMITIES: Moves all 4 extremities spontaneously. No edema, radial and dorsalis pedis pulses 2/4 bilaterally. No cyanosis. NEUROLOGICAL: Alert and oriented x3. Normal speech. PSYCH: Normal affect, normal mood. SKIN: Warm, dry, normal turgor. No rashes or lesions noted. (SAMAN GONSALEZ) Course - Re-evaluation Re-evalutation: 03/06/18 09:33 Patient only complains of nausea and vomiting, denies abdominal pain, denies diarrhea, denies vaginal discharge, denies . 03/06/18 09:33 Patient hydrated with normal saline, treated with Phenergan 2 and Benadryl 1. test will be checked. If this is negative patient will be discharged home, she has been able to tolerate a cup of water while here. No further vomiting while here. 03/06/18 09:55 Patient refuses test. States she had a miscarriage a month and a half ago and is on her period now. Patient made aware that she could still be . Patient states she will return should her vomiting return. (SHAILA DIAZ) - Vital Signs Vital signs: Temp Pulse Resp BP Pulse Ox 99.1 F 74 16 113/72 100 03/06/18 10:09 03/06/18 10:09 03/06/18 10:09 03/06/18 10:09 03/06/18 10:09 Discharge - Discharge Clinical Impression: Nausea and vomiting Qualifiers: Vomiting type: unspecified Vomiting Intractability: non-intractable Qualified Code(s): R11.2 - Nausea with vomiting, unspecified Condition: Stable Disposition: HOME, SELF-CARE Additional Instructions: Vomiting Vomiting (or nausea without vomiting) can be caused by many other different problems. It can mean that something's wrong with the stomach, such as ulcers or inflammation or the intestinal tract, such as appendicitis. But it can also be a symptom of a problem that has nothing to do with the stomach or intestines. Vomiting is common with severe headaches, earaches, tonsillitis, and kidney infections, etc. We see it with pneumonia or heart attacks. Drugs can cause nausea and vomiting. Many abdominal problems cause vomiting; for example, gallstones, kidney stones, pancreatitis, and intestinal obstruction ( blocked bowels). In most cases, curing the vomiting depends on fixing the problem that caused it. For temporary relief, we may use an anti-nausea medicine. For home use, we can prescribe suppositories, chewable pills, pills that dissolve in the mouth, or liquid anti-nausea drugs. If the vomiting seems to be caused by a problem in the stomach, acid-suppressing drugs may be prescribed as well. It's important to avoid dehydration. Sip small amounts of clear liquids ( soft drinks, tea, broth, etc) . Try to take fluids frequently even if you are vomiting to prevent dehydration. Take increasing amounts of fluid and when liquids are being consumed successfully, advance to small amounts of bland food (toast, soups, mashed potatoes, etc.) until you are able to resume a regular diet. Avoid aspirin, tobacco, and alcohol. If the vomiting worsens, if the problem that's making you vomit worsens, or if there's evidence of bleeding in the stomach (such as black, tarry stool, or bloody or black vomit), you should return immediately. Also, return if abdominal pain worsens or becomes localized to one area or you develop high fever. Call your doctor if you aren't improved in 24 hours. If your vomiting continues please consider taking a home test. Today you have declined the test. Prescriptions: Promethazine HCl [Phenergan 25 mg Tablet] 25 - 50 mg PO ASDIR PRN #12 tablet PRN Reason: Promethazine HCl [Phenergan 25 mg Supp.rect] 1 supp SD Q6H #12 supp.rect Scribe Attestation: 03/06/18 18:07 I personally performed the services described in the documentation, reviewed and edited the documentation which was dictated to the scribe in my presence, and it accurately records my words and actions. (SHAILA DIAZ) Scribe Documentation - Scribe Written by Nicole:: Nicole Goss, 03/06/2018 06:45 acting as scribe for :: Rufina
[2018-03-06] MEDS ORDERED: LOPERAMIDE HCL 2 MG CAPSULE PO ONE (06:31)
[2018-03-06] MEDS ORDERED: NORMAL SALINE 1000 ML 1,000 ML IV ONE (06:31)
[2018-03-06] MEDS ORDERED: PROMETHAZINE HCL INJ 25 MG/1 ML VIAL IM ONE ×2 (06:31→08:21)
[2018-03-06] MEDS ORDERED: DIPHENHYDRAMINE HCL 50 MG/ML VIAL IV ONE (07:38)
[2018-03-06 10:11] VITALS: BP 113/72
== END 2018-03-06 10:12 | disposition home or self-care (01) ==
LOC: ER 05:38
DX: R11.2 Nausea with vomiting, unspecified (principal); R19.7 Diarrhea, unspecified; F17.210 Nicotine dependence, cigarettes, uncomplicated; I10 Essential (primary) hypertension; F90.9 Attention-deficit hyperactivity disorder, unspecified type; F41.9 Anxiety disorder, unspecified; Z79.899 Other long term (current) drug therapy; Z88.5 Allergy status to narcotic agent; Z88.8 Allergy status to other drugs, medicaments and biological substances
CPT/HCPCS: 99284; 96372; 96361; 96374; J1200; J2550; J7030

== ENCOUNTER 2018-03-09 12:18 | Emergency (ER) | payer SELFPAY ==
[2018-03-09 12:26] VITALS: BP 135/88
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
== END 2018-03-09 13:46 | disposition home or self-care (01) ==
LOC: ER 12:18
DX: Z76.0 Encounter for issue of repeat prescription (principal); F41.9 Anxiety disorder, unspecified; F90.9 Attention-deficit hyperactivity disorder, unspecified type; I10 Essential (primary) hypertension; F17.200 Nicotine dependence, unspecified, uncomplicated
CPT/HCPCS: 99281

== ENCOUNTER 2018-03-10 16:51 | Emergency (ER) | payer SELFPAY ==
[2018-03-10] MEDS ORDERED: NORMAL SALINE 1000 ML 1,000 ML IV ONE (18:07)
[2018-03-10] MEDS ORDERED: PROMETHAZINE HCL INJ 50 MG/1 ML VIAL IM ONE (18:07)
--- NOTE | 2018-03-10 18:10 | ER Document Report ---
ED Medical Screen (RME) - General Chief Complaint: Abdominal Pain Stated Complaint: STOMACH PAIN Time Seen by Provider: 03/10/18 16:58 TRAVEL OUTSIDE OF THE [place] IN LAST 30 DAYS: No - HPI Patient complains to provider of: Nausea, vomiting, abdominal pain Notes: 03/10/18 18:09 Patient is a 32-year-old female presenting to the emergency room today complaining of nausea vomiting and abdominal pain has been going on since early this morning, pain is in the lower abdomen - Related Data Allergies/Adverse Reactions: ketorolac tromethamine [From Toradol] Allergy (Verified 03/10/18 16:53) meperidine HCl [From Demerol] Allergy (Verified 03/10/18 16:53) metoclopramide HCl [From Reglan] Allergy (Verified 03/10/18 16:53) morphine [Morphine] Allergy (Verified 03/10/18 16:53) tramadol [Tramadol] Allergy (Verified 03/10/18 16:53) Hives hydroxyzine [From Vistaril] Adverse Reaction (Verified 03/10/18 16:53) Anxiety ondansetron HCl [From Zofran] Adverse Reaction (Verified 03/10/18 16:53) VOMITING Past Medical History - Social History Chew tobacco use (# tins/day): No Frequency of alcohol use: None Drug Abuse: None - Past Medical History Cardiac Medical History: Reports: Hx Hypertension Neurological Medical History: Reports: Hx Migraine Renal/ Medical History: Denies: Hx Peritoneal Dialysis Musculoskeltal Medical History: Reports Hx Musculoskeletal Trauma Psychiatric Medical History: Reports: Hx Anxiety, Hx Attention Deficit Hyperactivity Disorder, Hx Bipolar Disorder, Hx Depression, Hx Post Traumatic Stress Disorder Traumatic Medical History: Reports: Hx Fractures - nose Past Surgical History: Reports: Hx Abdominal Surgery - LAPROSCOPY, Hx Gynecologic Surgery - d&c, lap for endometriosis, Hx Nose Surgery - Reconstruction for fracture, Other - facial reconstruction - Immunizations Immunizations up to date: Yes Hx Diphtheria, Pertussis, Tetanus Vaccination: Yes - 2010 Physical Exam - Vital signs Vitals: Temp Pulse Resp BP Pulse Ox 99.5 F 103 H 18 140/90 H 99 03/10/18 17:26 03/10/18 17:26 03/10/18 17:26 03/10/18 17:26 03/10/18 17:26 Course - Vital Signs Vital signs: Temp Pulse Resp BP Pulse Ox 99.5 F 103 H 18 140/90 H 99 03/10/18 17:26 03/10/18 17:26 03/10/18 17:26 03/10/18 17:26 03/10/18 17:26
[2018-03-10 19:26] LABS: APPEARANCE,URINE SLIGHTLY-CLOUDY; BILIRUBIN,URINE NEGATIVE (NEGATIVE); COLOR,URINE YELLOW; GLUCOSE, URINE NEGATIVE (NEGATIVE); KETONES,URINE NEGATIVE (NEGATIVE); LEUKOCYTE ESTERASE,URINE TRACE (NEGATIVE); NITRITE,URINE NEGATIVE (NEGATIVE); PROTEIN,URINE NEGATIVE (NEGATIVE); URINE SPECIFIC GRAVITY 1.023; UROBILINOGEN,URINE NEGATIVE mg/dL (<2.0)
[2018-03-10] MEDS ORDERED: PROMETHAZINE HCL 25 MG TABLET PO ONE (19:38)
[2018-03-10 19:42] LABS: URINE AMPHETAMINES SCREEN NEGATIVE; URINE BARBITURATES SCREEN NEGATIVE; URINE BENZODIAZEPINES SCREEN UNCONFIRMED POSITIVE; URINE COCAINE SCREEN NEGATIVE; URINE MARIJUANA (THC) SCREEN NEGATIVE; URINE METHADONE SCREEN NEGATIVE; URINE PHENCYCLIDINE SCREEN NEGATIVE
[2018-03-10] MEDS ORDERED: HALOPERIDOL LACTATE INJ 5 MG/1 ML VIAL IM ONE (20:35)
--- NOTE | 2018-03-10 21:27 | ER Document Report ---
ED General - General Chief Complaint: Abdominal Pain Stated Complaint: STOMACH PAIN Time Seen by Provider: 03/10/18 16:58 Notes: Patient is a 32 year old female with a past medical history of ADHD and anxiety who presents to the emergency room with complaints of 24 hours of lower abdominal pain, nausea and vomiting. This is the patient's 16th visit to the emergency department in 2018 often for complaints of abdominal pain with associated nausea and vomiting. She states that her abdominal pain is a generalized, cramping, aching pain. Nothing improves or worsens this pain. She states this does feel similar to similar times that he has been into the emergency department. She does not have a primary care doctor. She denies any vaginal bleeding, vaginal discharge or dysuria. No fever or constitutional symptoms. TRAVEL OUTSIDE OF THE [place] IN LAST 30 DAYS: No - Related Data Allergies/Adverse Reactions: ketorolac tromethamine [From Toradol] Allergy (Verified 03/10/18 16:53) meperidine HCl [From Demerol] Allergy (Verified 03/10/18 16:53) metoclopramide HCl [From Reglan] Allergy (Verified 03/10/18 16:53) morphine [Morphine] Allergy (Verified 03/10/18 16:53) tramadol [Tramadol] Allergy (Verified 03/10/18 16:53) Hives hydroxyzine [From Vistaril] Adverse Reaction (Verified 03/10/18 16:53) Anxiety ondansetron HCl [From Zofran] Adverse Reaction (Verified 03/10/18 16:53) VOMITING Past Medical History - General Information source: Patient - Social History Smoking Status: Current Every Day Smoker Chew tobacco use (# tins/day): No Frequency of alcohol use: None Drug Abuse: None Family History: Arthritis, DM, Hyperlipidemia, Hypertension Patient has suicidal ideation: No Patient has homicidal ideation: No - Past Medical History Cardiac Medical History: Reports: Hx Hypertension Neurological Medical History: Reports: Hx Migraine Renal/ Medical History: Denies: Hx Peritoneal Dialysis Musculoskeletal Medical History: Reports Hx Musculoskeletal Trauma Psychiatric Medical History: Reports: Hx Anxiety, Hx Attention Deficit Hyperactivity Disorder, Hx Bipolar Disorder, Hx Depression, Hx Post Traumatic Stress Disorder Traumatic Medical History: Reports: Hx Fractures - nose Past Surgical History: Reports: Hx Abdominal Surgery - LAPROSCOPY, Hx Gynecologic Surgery - d&c, lap for endometriosis, Hx Nose Surgery - Reconstruction for fracture, Other - facial reconstruction - Immunizations Immunizations up to date: Yes Hx Diphtheria, Pertussis, Tetanus Vaccination: Yes - 2010 Review of Systems - Review of Systems Notes: Constitutional: Negative for fever. HENT: Negative for sore throat. Eyes: Negative for visual changes. Cardiovascular: Negative for chest pain. Respiratory: Negative for shortness of breath. Gastrointestinal: Positive for abdominal pain and vomiting Genitourinary: Negative for dysuria. Musculoskeletal: Negative for back pain. Skin: Negative for rash. Neurological: Negative for headaches, weakness or numbness. 10 point ROS negative except as marked above and in HPI. Physical Exam - Vital signs Vitals: Temp Pulse Resp BP Pulse Ox 99.5 F 103 H 18 140/90 H 99 03/10/18 17:26 03/10/18 17:26 03/10/18 17:26 03/10/18 17:26 03/10/18 17:26 Interpretation: Tachycardic Notes: PHYSICAL EXAMINATION: GENERAL: Appears moderately uncomfortable but in no acute distress HEAD: Atraumatic, normocephalic. EYES: Pupils equal round and reactive to light, extraocular movements intact, sclera anicteric, conjunctiva are normal. ENT: nares patent, oropharynx clear without exudates. Mildly dry mucous membranes. NECK: Normal range of motion, supple without lymphadenopathy LUNGS: Breath sounds clear to auscultation bilaterally and equal. No wheezes rales or rhonchi. HEART: Regular rate and rhythm without murmurs ABDOMEN: Soft, nontender, normoactive bowel sounds. No guarding, no rebound. No masses appreciated. EXTREMITIES: Normal range of motion, no pitting or edema. No cyanosis. NEUROLOGICAL: No focal neurological deficits. Moves all extremities spontaneously and on command. PSYCH: Mildly anxious SKIN: Warm, Dry, normal turgor, no rashes or lesions noted. Course - Re-evaluation Re-evalutation: 03/10/18 21:26 Patient presents with generalized abdominal pain as well as nausea and vomiting over the past 24 hours. On exam she does not have any focal areas of tenderness , rebound or guarding. She has a long-standing history of recurrent similar symptoms based on previous emergency department visits. Her vitals at time of my assessment are within normal limits. She does appear moderately dehydrated on examination although has been able to tolerate oral intake here in the emergency department. Low clinical suspicion for acute biliary pathology, acute appendicitis, ovarian torsion, acute pancreatitis, or any alternatively threatening pathology based on exam and history. Will obtain labs and reassess the patient. 03/10/18 23:11 Patient has had improvement of her pain, resolution of vomiting, has been tolerating oral intake for over 2 hours without any difficulty. Labs unremarkable without evidence of , urinary tract infection, acute pancreatitis, transaminitis, or leukocytosis. Repeat abdominal exam remains benign. At this time will discharge with return precautions and follow-up recommendations. Verbal discharge instructions given a the bedside and opportunity for questions given. Medication warnings reviewed. Patient is in agreement with this plan and has verbalized understanding of return precautions and the need for primary care follow-up in the next 24-72 hours. - Vital Signs Vital signs: Temp Pulse Resp BP Pulse Ox 98.3 F 88 18 135/78 H 100 03/10/18 23:56 03/10/18 23:56 03/10/18 23:56 03/10/18 23:56 03/10/18 23:56 - Laboratory Result Diagrams: 03/10/18 22:20 03/10/18 22:20 Laboratory results interpreted by me: 03/10/18 03/10/18 18:39 22:20 Hgb 10.7 L Hct 32.0 L Ur Leukocyte Esterase TRACE H Discharge - Discharge Clinical Impression: Generalized abdominal pain Nausea and vomiting Qualifiers: Vomiting type: unspecified Vomiting Intractability: non-intractable Qualified Code(s): R11.2 - Nausea with vomiting, unspecified Condition: Good Disposition: HOME, SELF-CARE Additional Instructions: You have been seen in the Emergency Department (ED) for abdominal pain. Your evaluation did not identify a clear cause of your symptoms but was generally reassuring. Please follow up with your doctor as soon as possible regarding today's emergent visit and the symptoms that are bothering you. Return to the ED if your abdominal pain worsens or fails to improve, you develop bloody vomiting, bloody diarrhea, you are unable to tolerate fluids due to vomiting, fever greater than 101, or other symptoms that concern you.
[2018-03-10 22:43] LABS: ABSOLUTE EOSINOPHILS # (AUTO) 0.1 10^3/uL (0.0-0.6); ABSOLUTE LYMPHOCYTES (AUTO) 1.3 10^3/uL (0.5-4.7); ABSOLUTE MONOCYTES (AUTO) 0.5 10^3/uL (0.1-1.4); ABSOLUTE NEUT (AUTO) 5.4 10^3/uL (1.7-8.2); BASOPHILS % (AUTO) 0.1 % (0-2); EOSINOPHILS % (AUTO) 1.5 % (0-6); HEMOGLOBIN 10.7 g/dL (12.0-15.5); LYMPHOCYTES % (AUTO) 17.8 % (13-45); MEAN CORPUSCULAR HEMOGLOBIN 28.3 pg (27.0-33.4); MEAN CORPUSCULAR HGB CONC 33.4 g/dL (32.0-36.0); MEAN CORPUSCULAR VOLUME 85 fl (80-97); MONOCYTES % (AUTO) 6.7 % (3-13); PLATELET COUNT 172 10^3/uL (150-450); RED BLOOD COUNT 3.78 10^6/uL (3.72-5.28); RED CELL DISTRIBUTION WIDTH 13.6 % (11.5-14.0); SEGMENTED NEUTROPHILS % (AUTO) 73.9 % (42-78); TOTAL CELLS COUNTED % (AUTO) 100 %; WHITE BLOOD COUNT 7.3 10^3/uL (4.0-10.5)
[2018-03-10 23:01] LABS: ALANINE AMINOTRANSFERASE 27 U/L (9-52); ALKALINE PHOSPHATASE 55 U/L (38-126); ANION GAP 12 (5-19); ASPARTATE AMINO TRANSFERASE 26 U/L (14-36); BILIRUBIN,DIRECT 0.2 mg/dL (0.0-0.4); BILIRUBIN,TOTAL 0.8 mg/dL (0.2-1.3); BLOOD UREA NITROGEN 9 mg/dL (7-20); CALCIUM 9.1 mg/dL (8.4-10.2); CARBON DIOXIDE 25 mmol/L (22-30); CHLORIDE 107 mmol/L (98-107); GLUCOSE 79 mg/dL (75-110); POTASSIUM 3.8 mmol/L (3.6-5.0); TOTAL PROTEIN 7.1 g/dL (6.3-8.2)
[2018-03-11 00:31] VITALS: BP 135/78
== END 2018-03-10 23:56 | disposition home or self-care (01) ==
LOC: ER 16:51
DX: R10.84 Generalized abdominal pain (principal); R11.2 Nausea with vomiting, unspecified; F41.9 Anxiety disorder, unspecified; F17.200 Nicotine dependence, unspecified, uncomplicated; I10 Essential (primary) hypertension; Z88.8 Allergy status to other drugs, medicaments and biological substances; Z88.5 Allergy status to narcotic agent
CPT/HCPCS: 99284; 96372; 36415; 83690; 85025; 81025; 80053; 81001; 80307; J1630

== ENCOUNTER 2018-03-31 16:49 | Emergency (ER) | payer SELFPAY ==
--- NOTE | 2018-03-31 18:00 | ER Document Report ---
ED Medical Screen (RME) - General Chief Complaint: Headache Stated Complaint: HEADACHE,NAUSEA,MUSCLE PAIN Time Seen by Provider: 03/31/18 17:57 Mode of Arrival: Ambulatory TRAVEL OUTSIDE OF THE [place] IN LAST 30 DAYS: No - HPI Patient complains to provider of: berger; nausea Onset: This morning - pt with severe BERGER not responding to tylenol or motrin - Related Data Allergies/Adverse Reactions: ketorolac tromethamine [From Toradol] Allergy (Verified 03/10/18 16:53) meperidine HCl [From Demerol] Allergy (Verified 03/10/18 16:53) metoclopramide HCl [From Reglan] Allergy (Verified 03/10/18 16:53) morphine [Morphine] Allergy (Verified 03/10/18 16:53) tramadol [Tramadol] Allergy (Verified 03/10/18 16:53) Hives hydroxyzine [From Vistaril] Adverse Reaction (Verified 03/10/18 16:53) Anxiety ondansetron HCl [From Zofran] Adverse Reaction (Verified 03/10/18 16:53) VOMITING Past Medical History - Social History Chew tobacco use (# tins/day): No Frequency of alcohol use: Rare Drug Abuse: None - Past Medical History Cardiac Medical History: Reports: Hx Hypertension Neurological Medical History: Reports: Hx Migraine Renal/ Medical History: Denies: Hx Peritoneal Dialysis Musculoskeltal Medical History: Reports Hx Musculoskeletal Trauma Psychiatric Medical History: Reports: Hx Anxiety, Hx Attention Deficit Hyperactivity Disorder, Hx Bipolar Disorder, Hx Depression, Hx Post Traumatic Stress Disorder Traumatic Medical History: Reports: Hx Fractures - nose Past Surgical History: Reports: Hx Abdominal Surgery - LAPROSCOPY, Hx Gynecologic Surgery - d&c, lap for endometriosis, Hx Nose Surgery - Reconstruction for fracture, Other - facial reconstruction - Immunizations Immunizations up to date: Yes Hx Diphtheria, Pertussis, Tetanus Vaccination: Yes - 2010 Physical Exam - Vital signs Vitals: Temp Pulse Resp BP Pulse Ox 99.5 F 82 16 132/91 H 100 03/31/18 17:00 03/31/18 17:00 03/31/18 17:00 03/31/18 17:00 03/31/18 17:00 Course - Vital Signs Vital signs: Temp Pulse Resp BP Pulse Ox 99.5 F 82 16 132/91 H 100 03/31/18 17:00 03/31/18 17:00 03/31/18 17:00 03/31/18 17:00 03/31/18 17:00
[2018-03-31] MEDS ORDERED: PROMETHAZINE HCL 25 MG TABLET PO ONE (18:06)
[2018-03-31] MEDS ORDERED: HYDROCODONE/ACETAMINOPHEN 5-325 MG TABLET PO ONE (18:24)
--- NOTE | 2018-03-31 18:55 | RADIOLOGY REPORT (SQ) ---
EXAM DESCRIPTION: CT HEAD WITHOUT COMPLETED DATE/TIME: 03/31/2018 6:41 pm REASON FOR STUDY: mcnair COMPARISON: None. TECHNIQUE: Axial images acquired through the brain without intravenous contrast. Images reviewed wi th bone, brain and subdural windows. 07/14/2016 Images stored on PACS. All CT scanners at this facility use dose modulation, iterative reconstruction, and/or weight based d osing when appropriate to reduce radiation dose to as low as reasonably achievable (ALARA). [facility]: Dose Right [facility]: CareDose [facility]: Dose Right [facility]: Teradose 4D [facility]: Smart [id number] RADIATION DOSE: CT Rad equipment meets quality standard of care and radiation dose reduction techniq ues were employed. CTDIvol: 53.2 mGy. DLP: 1044 mGy-cm. mGy. LIMITATIONS: None. FINDINGS: VENTRICLES: Normal size and contour. CEREBRUM: No masses. No hemorrhage. No midline shift. No evidence for acute infarction. Normal gra y/white matter differentiation. No areas of low density in the white matter. CEREBELLUM: No masses. No hemorrhage. No alteration of density. No evidence for acute infarction. EXTRAAXIAL SPACES: No fluid collections. No masses. ORBITS AND GLOBE: No intra- or extraconal masses. Normal contour of globe without masses. CALVARIUM: No fracture. PARANASAL SINUSES: No fluid or mucosal thickening. SOFT TISSUES: No mass or hematoma. OTHER: No other significant finding. IMPRESSION: NORMAL BRAIN CT WITHOUT CONTRAST. EVIDENCE OF ACUTE STROKE: NO. COMMENT: Quality ID # [id number]: Final reports with documentation of one or more dose reduction techniques (e.g., Automated exposure control, adjustment of the mA and/or kV according to patient size, use of iterative reconstruction technique) TECHNICAL DOCUMENTATION: JOB ID: [id number] [employer]- All Rights Reserved Reading location - IP/workstation name: [email or web address]
[2018-03-31 20:16] LABS: APPEARANCE,URINE CLEAR; BILIRUBIN,URINE NEGATIVE (NEGATIVE); GLUCOSE, URINE NEGATIVE (NEGATIVE); KETONES,URINE NEGATIVE (NEGATIVE); LEUKOCYTE ESTERASE,URINE TRACE (NEGATIVE); NITRITE,URINE NEGATIVE (NEGATIVE); PROTEIN,URINE NEGATIVE (NEGATIVE); URINE SPECIFIC GRAVITY 1.018; UROBILINOGEN,URINE NEGATIVE mg/dL (<2.0)
[2018-03-31 20:27] LABS: COLOR,URINE YELLOW
[2018-03-31 20:39] LABS: ABSOLUTE EOSINOPHILS # (AUTO) 0.2 10^3/uL (0.0-0.6); ABSOLUTE LYMPHOCYTES (AUTO) 2.1 10^3/uL (0.5-4.7); ABSOLUTE MONOCYTES (AUTO) 0.4 10^3/uL (0.1-1.4); ABSOLUTE NEUT (AUTO) 1.6 10^3/uL (1.7-8.2); BASOPHILS % (AUTO) 0.6 % (0-2); EOSINOPHILS % (AUTO) 5.5 % (0-6); HEMOGLOBIN 10.5 g/dL (12.0-15.5); LYMPHOCYTES % (AUTO) 48.4 % (13-45); MEAN CORPUSCULAR HEMOGLOBIN 27.9 pg (27.0-33.4); MEAN CORPUSCULAR HGB CONC 32.8 g/dL (32.0-36.0); MEAN CORPUSCULAR VOLUME 85 fl (80-97); MONOCYTES % (AUTO) 9.5 % (3-13); PLATELET COUNT 139 10^3/uL (150-450); RED BLOOD COUNT 3.76 10^6/uL (3.72-5.28); RED CELL DISTRIBUTION WIDTH 13.8 % (11.5-14.0); TOTAL CELLS COUNTED % (AUTO) 100 %; WHITE BLOOD COUNT 4.3 10^3/uL (4.0-10.5)
[2018-03-31 21:00] LABS: ALANINE AMINOTRANSFERASE 20 U/L (9-52); ALBUMIN 4.2 g/dL (3.5-5.0); ALKALINE PHOSPHATASE 56 U/L (38-126); ANION GAP 13 (5-19); ASPARTATE AMINO TRANSFERASE 15 U/L (14-36); BILIRUBIN,DIRECT 0.2 mg/dL (0.0-0.4); BILIRUBIN,TOTAL 0.3 mg/dL (0.2-1.3); BLOOD UREA NITROGEN 9 mg/dL (7-20); CARBON DIOXIDE 25 mmol/L (22-30); CHLORIDE 108 mmol/L (98-107); GLUCOSE 119 mg/dL (75-110); POTASSIUM 3.9 mmol/L (3.6-5.0); SODIUM 145.6 mmol/L (137-145); TOTAL PROTEIN 7.4 g/dL (6.3-8.2)
[2018-03-31] MEDS ORDERED: DIPHENHYDRAMINE HCL 50 MG CAPSULE PO ONE (22:52)
--- NOTE | 2018-03-31 22:55 | ER Document Report ---
ED Headache - General Chief Complaint: Headache Stated Complaint: HEADACHE,NAUSEA,MUSCLE PAIN Time Seen by Provider: 03/31/18 17:57 Mode of Arrival: Ambulatory TRAVEL OUTSIDE OF THE [place] IN LAST 30 DAYS: No - HPI Patient complains to provider of: Headache Notes: Patient in for evaluation of headache nausea vomiting. Patient states headaches behind her right eye. Patient also states have multiple episodes of nausea and vomiting. Patient with had a head CT performed in triage but was otherwise read as negative. Patient did not risk up in hallway bed with no nausea vomiting seen prior to my evaluation. Patient denies any sick contacts denies any fevers chills diarrhea denies any trauma. - Related Data Allergies/Adverse Reactions: ketorolac tromethamine [From Toradol] Allergy (Verified 03/10/18 16:53) meperidine HCl [From Demerol] Allergy (Verified 03/10/18 16:53) metoclopramide HCl [From Reglan] Allergy (Verified 03/10/18 16:53) morphine [Morphine] Allergy (Verified 03/10/18 16:53) tramadol [Tramadol] Allergy (Verified 03/10/18 16:53) Hives hydroxyzine [From Vistaril] Adverse Reaction (Verified 03/10/18 16:53) Anxiety ondansetron HCl [From Zofran] Adverse Reaction (Verified 03/10/18 16:53) VOMITING Past Medical History - Social History Smoking Status: Current Every Day Smoker Chew tobacco use (# tins/day): No Frequency of alcohol use: Rare Drug Abuse: None Family History: Arthritis, DM, Hyperlipidemia, Hypertension Patient has suicidal ideation: No Patient has homicidal ideation: No - Past Medical History Cardiac Medical History: Reports: Hx Hypertension Neurological Medical History: Reports: Hx Migraine Renal/ Medical History: Denies: Hx Peritoneal Dialysis Musculoskeletal Medical History: Reports Hx Musculoskeletal Trauma Psychiatric Medical History: Reports: Hx Anxiety, Hx Attention Deficit Hyperactivity Disorder, Hx Bipolar Disorder, Hx Depression, Hx Post Traumatic Stress Disorder Traumatic Medical History: Reports: Hx Fractures - nose Past Surgical History: Reports: Hx Abdominal Surgery - LAPROSCOPY, Hx Gynecologic Surgery - d&c, lap for endometriosis, Hx Nose Surgery - Reconstruction for fracture, Other - facial reconstruction - Immunizations Immunizations up to date: Yes Hx Diphtheria, Pertussis, Tetanus Vaccination: Yes - 2010 Review of Systems - Review of Systems Constitutional: No symptoms reported EENT: No symptoms reported Cardiovascular: No symptoms reported Respiratory: No symptoms reported Gastrointestinal: No symptoms reported Genitourinary: No symptoms reported Female Genitourinary: No symptoms reported Musculoskeletal: No symptoms reported Skin: No symptoms reported Hematologic/Lymphatic: No symptoms reported Neurological/Psychological: Headaches -: Yes All other systems reviewed and negative Physical Exam - Vital signs Vitals: Temp Pulse Resp BP Pulse Ox 99.5 F 82 16 132/91 H 100 03/31/18 17:00 03/31/18 17:00 03/31/18 17:00 03/31/18 17:00 03/31/18 17:00 Interpretation: Normal - General General appearance: Appears well, Alert - HEENT Head: Normocephalic, Atraumatic Eyes: Normal Pupils: PERRL - Respiratory Respiratory status: No respiratory distress Chest status: Nontender Breath sounds: Normal Chest palpation: Normal - Cardiovascular Rhythm: Regular Heart sounds: Normal auscultation Murmur: No - Abdominal Inspection: Normal Distension: No distension Bowel sounds: Normal Tenderness: Nontender Organomegaly: No organomegaly - Back Back: Normal, Nontender - Extremities General upper extremity: Normal inspection, Nontender, Normal color, Normal ROM , Normal temperature General lower extremity: Normal inspection, Nontender, Normal color, Normal ROM , Normal temperature, Normal weight bearing. No: Yovani's sign - Neurological Neuro grossly intact: Yes Cognition: Normal Orientation: AAOx4 Ron Coma Scale Eye Opening: Spontaneous [place] Coma Scale Verbal: Oriented [place] Coma Scale Motor: Obeys Commands [place] Coma Scale Total: 15 Speech: Normal Motor strength normal: LUE, RUE, LLE, RLE Sensory: Normal - Psychological Associated symptoms: Normal affect, Normal mood - Skin Skin Temperature: Warm Skin Moisture: Dry Skin Color: Normal Course - Re-evaluation Re-evalutation: 04/01/18 05:25 The patient presents with headache without signs of PUBLIC INFORMATION SPECIALIST bleed, stroke, infection , or other serious etiology. The patient is neurologically intact. Given the extremely low risk of these diagnoses further testing and evaluation for these possibilities does not appear to be indicated at this time. The patient has been instructed to return if the symptoms worsen or change in any way.. - Vital Signs Vital signs: Temp Pulse Resp BP Pulse Ox 99.5 F 78 18 127/85 H 100 03/31/18 17:00 03/31/18 23:29 03/31/18 23:29 03/31/18 23:29 03/31/18 23:29 - Laboratory Result Diagrams: 03/31/18 20:29 03/31/18 20:29 Laboratory results interpreted by me: 03/31/18 03/31/18 03/31/18 18:00 20:29 20:29 Hgb 10.5 L Hct 32.0 L Plt Count 139 L Seg Neutrophils % 36.0 L Lymphocytes % 48.4 H Absolute Neutrophils 1.6 L Sodium 145.6 H Chloride 108 H Glucose 119 H Ur Leukocyte Esterase TRACE H Discharge - Discharge Clinical Impression: Myalgia Nausea & vomiting Qualifiers: Vomiting type: unspecified Vomiting Intractability: unspecified Qualified Code( s): R11.2 - Nausea with vomiting, unspecified Headache Qualifiers: Headache type: unspecified Headache chronicity pattern: unspecified pattern Intractability: not intractable Qualified Code(s): R51 - Headache Condition: Good Disposition: HOME, SELF-CARE Instructions: Dehydration ([facility]), Headache ([facility]), Vomiting ([facility]) Additional Instructions: Laboratory studies not show any critical pathology. Head CT also did not show any critical pathology. Please make sure he follow-up with your primary care physician. Please take Phenergan as prescribed. This will help out not only with your nausea but also headaches. Return to ER symptoms worsen would recommend sticking to a clear liquid diet for the next 24 hours. Prescriptions: Promethazine HCl [Phenergan 25 mg Tablet] 25 mg PO Q6 #30 tablet
[2018-03-31 23:30] VITALS: BP 127/85
== END 2018-03-31 23:31 | disposition home or self-care (01) ==
LOC: ER 16:49
DX: R51 Headache (principal); R11.2 Nausea with vomiting, unspecified; M79.1 Myalgia; F17.200 Nicotine dependence, unspecified, uncomplicated; I10 Essential (primary) hypertension; Z88.8 Allergy status to other drugs, medicaments and biological substances; Z88.5 Allergy status to narcotic agent
CPT/HCPCS: 36415; 70450; 80053; 81001; 81025; 85025; 99284

== ENCOUNTER 2018-04-09 19:09 | Emergency (ER) | payer SELFPAY ==
--- NOTE | 2018-04-09 19:38 | ER Document Report ---
ED Medical Screen (RME) - General Chief Complaint: Numbness of Arm Stated Complaint: RIGHT ARM NUMNESS Mode of Arrival: Ambulatory Information source: Patient Notes: This is a 32-year-old female with a history of ADHD, hypertension, anxiety. The patient does smoke a half pack per day. She presents to the emergency room with numbness from the elbow down to the fingers on the right side since yesterday. She is concerned about blood clots. She is not on any blood pressure medicine because previously, she states she "bottomed out" after being on blood pressure medicine and was told not to take blood pressure medicine. The patient does report cough with some shortness of breath and low-grade fever. She does report shortness of breath as well as abdominal cramping and "urinating a lot". She denies any dysuria. She is able to drink and eat okay. She denies any focal motor weakness. She denies any headaches. TRAVEL OUTSIDE OF THE [place] IN LAST 30 DAYS: No - HPI Onset: Yesterday Onset/Duration: Gradual Quality of pain: No pain Severity: None Pain Level: Denies Associated Symptoms: Cough (nonproductive), Fever, Shortness of breath, Sore throat, Other. denies: Abdominal pain - Urinating a lot, Chest pain, Headache Exacerbated by: Denies Relieved by: Denies Similar symptoms previously: No Recently seen / treated by doctor: Yes - Related Data Smoking: Cigarettes Frequency of alcohol use: None Drug Abuse: None Allergies/Adverse Reactions: ketorolac tromethamine [From Toradol] Allergy (Verified 03/10/18 16:53) meperidine HCl [From Demerol] Allergy (Verified 03/10/18 16:53) metoclopramide HCl [From Reglan] Allergy (Verified 03/10/18 16:53) morphine [Morphine] Allergy (Verified 03/10/18 16:53) tramadol [Tramadol] Allergy (Verified 03/10/18 16:53) Hives hydroxyzine [From Vistaril] Adverse Reaction (Verified 03/10/18 16:53) Anxiety ondansetron HCl [From Zofran] Adverse Reaction (Verified 03/10/18 16:53) VOMITING Past Medical History - General Information source: Patient - Social History Cigarette use (# per day): Yes - Half a pack per day Chew tobacco use (# tins/day): No Frequency of alcohol use: None Drug Abuse: None Lives with: Spouse/Significant other Family history: None - Past Medical History Cardiac Medical History: Reports: Hx Hypertension Neurological Medical History: Reports: Hx Migraine Renal/ Medical History: Denies: Hx Peritoneal Dialysis Musculoskeltal Medical History: Reports Hx Musculoskeletal Trauma Psychiatric Medical History: Reports: Hx Anxiety, Hx Attention Deficit Hyperactivity Disorder, Hx Bipolar Disorder, Hx Depression, Hx Post Traumatic Stress Disorder Traumatic Medical History: Reports: Hx Fractures - nose Past Surgical History: Reports: Hx Abdominal Surgery - LAPROSCOPY, Hx Gynecologic Surgery - d&c, lap for endometriosis, Hx Nose Surgery - Reconstruction for fracture, Other - facial reconstruction - Immunizations Immunizations up to date: Yes Hx Diphtheria, Pertussis, Tetanus Vaccination: Yes - 2010 Review of Systems - Review of Systems Constitutional: Fever. denies: Chills EENT: Other - Sore throat. denies: Blurred vision, Difficulty swallowing Cardiovascular: denies: Chest pain, Palpitations, Heart racing, Orthopnea Respiratory: Cough, Short of breath. denies: Hemoptysis, Sputum, Wheezing Gastrointestinal: denies: Abdominal pain, Vomiting, Black stools, Rectal bleeding Genitourinary: Frequency. denies: Burning, Dysuria, Flank pain, Hematuria Female Genitourinary: denies: Vaginal discharge, Vaginal bleeding, Vaginal odor Musculoskeletal: denies: Back pain, Joint pain, Joint swelling Skin: denies: Lesions, Rash Hematologic/Lymphatic: denies: Easy bleeding, Easy bruising Neurological/Psychological: Other - Numbness Physical Exam - Vital signs Vitals: Temp Pulse Resp BP Pulse Ox 100.2 F 107 H 18 150/100 H 99 04/09/18 19:13 04/09/18 19:13 04/09/18 19:13 04/09/18 19:13 04/09/18 19:13 Notes: Physical exam: GENERAL: 32-year-old female, alert and oriented 3, no acute distress. HEAD: Atraumatic, normocephalic. EYES: Pupils equal round and reactive to light, extraocular movements intact, sclera anicteric, conjunctiva are normal. ENT: TMs normal, nares patent, oropharynx erythematous without exudates. Moist mucous membranes. NECK: Normal range of motion, supple without obvious mass. LUNGS: Breath sounds clear to auscultation bilaterally and equal. No wheezes rales or rhonchi. HEART: Regular rate and rhythm without murmurs, rubs or gallops. ABDOMEN: Soft, normoactive bowel sounds. No tenderness to palpation. No guarding, no rebound. No masses appreciated. EXTREMITIES: Normal range of motion, no pitting or edema. No clubbing or cyanosis. NEUROLOGICAL: Cranial nerves II through XII grossly intact. Motor 5/5, sensory grossly intact (upper and lower extremities). She does feel me palpate the right forearm. Cerebellar excellent (finger to nose), Romberg negative, reflexes are symmetrical. She has normal speech and a normal gait. PSYCH: Normal mood, normal affect. SKIN: Warm, Dry, normal turgor, no rashes or lesions noted. Course - Re-evaluation Re-evalutation: 04/09/18 20:19 Regarding the patient's numbness: Does not really follow a stroke pattern. Her numbness was from the elbow down. She denied laying on the arm. On my exam however, she did appear to have sensory of the forearm of the affected side. Her neurologic exam was quite good and there was no evidence of stroke. I did review her recent CT from 1 week ago and it was normal. I gave her reassurance. Regarding her blood pressure: It was high today. She did have a problem with low blood pressure in the past and syncope because of blood pressure medicine. I recommended she follow-up in the [facility] for repeat blood pressure check. Regarding her symptoms fever (low-grade), sore throat, nonproductive cough, urinary frequency: Her chest x-ray shows no pneumonia. The strep test was negative and the urine analysis was clear. I think most likely she has got a small viral syndrome and I encouraged her to drink plenty of fluids, Tylenol, ibuprofen. Regarding risk factors: I did talk to her about the importance of stopping smoking. I did discuss the risk factors of continuing to smoke. - Vital Signs Vital signs: Temp Pulse Resp BP Pulse Ox 100.2 F 107 H 18 150/100 H 99 04/09/18 19:13 04/09/18 19:13 04/09/18 19:13 04/09/18 19:13 04/09/18 19:13 - Diagnostic Test Radiology reviewed: Image reviewed, Reports reviewed - Chest x-ray shows no obvious infiltrates Doctor's Discharge - Discharge Clinical Impression: Viral syndrome Condition: Stable Disposition: HOME, SELF-CARE Additional Instructions: As we discussed, the CT scan from 1 week ago look quite good. The urine analysis showed no infection. The strep test (of the throat) was normal. I would like you to rest, drink plenty of fluids, take ibuprofen and Tylenol as needed. I would like you to follow-up in the free clinic to have a repeat blood pressure check. I left the number for the [facility] on the chart. Return to the emergency room for any worsening numbness, worsening sore throat, inability to eat or drink or any concerns or getting worse. Regarding Cigarette Smoking: There are multiple personal reasons to want to quit smoking These reasons can inspire you to stop smoking for good. Here are just a few reasons to quit today : Your Health and Appearance: Your chances of cancer, heart attack, stroke, cataracts and other diseases will go down. You will cough less and breath better. You will experience less respiratory infections. Your skin may look healthier, and you may look tounger. Your teeth and fingernails will not be stained. Your Loved Ones: You children will be healthier (second hand smoke is dangerous to babies during , infants and children). women who breath in secondhand smoke over time are more likely to have miscarriage, have young babies from Sudden Infant Syndrome, have babies that get sick more often. Children who breathe in secondhand smoke over time are more likely to have wheezing, more severe asthma attacks, pneumonia. There are resources to help you stop smokin. Call for Free Help: 7-647-Gdhf-Now (043 105-6080). or in emirati: 6-026- MARGARET-YA (445-960-9962). 2. Sign up for free texts: SmokefreeTXT: [place] [address], answer a few questions and you'll start receiving messages. 3. Visit the CDC website: www.cdc.gov/tobacco/campaign/tips/quit-smoking/ quitting-resources.html 4. Discusse further methods with your primary care physician. Referrals: [facility] [Provider Group] - Follow up in 3-5 days (This is the number the free clinic to follow-up repeat blood pressure check)
[2018-04-09 20:04] LABS: APPEARANCE,URINE CLEAR; BILIRUBIN,URINE NEGATIVE (NEGATIVE); COLOR,URINE YELLOW; GLUCOSE, URINE NEGATIVE (NEGATIVE); KETONES,URINE NEGATIVE (NEGATIVE); LEUKOCYTE ESTERASE,URINE NEGATIVE (NEGATIVE); NITRITE,URINE NEGATIVE (NEGATIVE); PROTEIN,URINE NEGATIVE (NEGATIVE); URINE SPECIFIC GRAVITY 1.014; UROBILINOGEN,URINE NEGATIVE mg/dL (<2.0)
--- NOTE | 2018-04-09 20:04 | RADIOLOGY REPORT (SQ) ---
EXAM DESCRIPTION: CHEST 2 VIEWS COMPLETED DATE/TIME: 04/09/2018 7:55 pm REASON FOR STUDY: cough, sob COMPARISON: 03/27/2017 EXAM PARAMETERS: NUMBER OF VIEWS: two views TECHNIQUE: Digital Frontal and Lateral radiographic views of the chest acquired. RADIATION DOSE: NA LIMITATIONS: none FINDINGS: LUNGS AND PLEURA: No opacities, masses or pneumothorax. No pleural effusion. MEDIASTINUM AND HILAR STRUCTURES: No masses or contour abnormalities. HEART AND VASCULAR STRUCTURES: Heart normal size. No evidence for failure. BONES: No acute findings. HARDWARE: None in the chest. OTHER: No other significant finding. IMPRESSION: NO ACUTE RADIOGRAPHIC FINDING IN THE CHEST. TECHNICAL DOCUMENTATION: JOB ID: [id number] [employer]- All Rights Reserved Reading location - IP/workstation name: [email or web address]
[2018-04-09] MEDS ORDERED: IBUPROFEN 400 MG TABLET PO ONE (20:17)
[2018-04-09 20:30] VITALS: BP 141/90
== END 2018-04-09 20:35 | disposition home or self-care (01) ==
LOC: ER 19:09
DX: B34.9 Viral infection, unspecified (principal); R20.0 Anesthesia of skin; R50.9 Fever, unspecified; F90.9 Attention-deficit hyperactivity disorder, unspecified type; I10 Essential (primary) hypertension; F17.210 Nicotine dependence, cigarettes, uncomplicated; Z88.6 Allergy status to analgesic agent
CPT/HCPCS: 99284; 87070; 87880; 81025; 81001; 71046; J3490

== ENCOUNTER 2018-04-12 17:00 | Emergency (ER) | payer SELFPAY ==
[2018-04-12] MEDS ORDERED: CLONAZEPAM 1 MG TABLET PO ONE (17:55)
--- NOTE | 2018-04-12 18:55 | ER Document Report ---
ED Psych Disorder / Suicide - General Chief Complaint: Anxiety Stated Complaint: POSSIBLE ANXIETY Time Seen by Provider: 04/12/18 17:54 Mode of Arrival: Ambulatory Information source: Patient TRAVEL OUTSIDE OF THE [place] IN LAST 30 DAYS: No - HPI Patient complains to provider of: Other - anxiety Onset: This morning Onset was: Sudden Quality of pain: No pain Severity: None Pain Level: Denies Normal mood: Yes Associated symptoms: Anxious Similar symptoms previously: Yes Recently seen / treated by doctor: No - Related Data Allergies/Adverse Reactions: ketorolac tromethamine [From Toradol] Allergy (Verified 04/12/18 17:00) meperidine HCl [From Demerol] Allergy (Verified 04/12/18 17:00) metoclopramide HCl [From Reglan] Allergy (Verified 04/12/18 17:00) morphine [Morphine] Allergy (Verified 04/12/18 17:00) tramadol [Tramadol] Allergy (Verified 04/12/18 17:00) Hives hydroxyzine [From Vistaril] Adverse Reaction (Verified 04/12/18 17:00) Anxiety ondansetron HCl [From Zofran] Adverse Reaction (Verified 04/12/18 17:00) VOMITING Past Medical History - Social History Smoking Status: Current Every Day Smoker Chew tobacco use (# tins/day): No Frequency of alcohol use: None Drug Abuse: None Family History: Arthritis, DM, Hyperlipidemia, Hypertension Patient has suicidal ideation: No Patient has homicidal ideation: No - Past Medical History Cardiac Medical History: Reports: Hx Hypertension Neurological Medical History: Reports: Hx Migraine Renal/ Medical History: Denies: Hx Peritoneal Dialysis Musculoskeletal Medical History: Reports Hx Musculoskeletal Trauma Psychiatric Medical History: Reports: Hx Anxiety, Hx Attention Deficit Hyperactivity Disorder, Hx Bipolar Disorder, Hx Depression, Hx Post Traumatic Stress Disorder Traumatic Medical History: Reports: Hx Fractures - nose Past Surgical History: Reports: Hx Abdominal Surgery - LAPROSCOPY, Hx Gynecologic Surgery - d&c, lap for endometriosis, Hx Nose Surgery - Reconstruction for fracture, Other - facial reconstruction - Immunizations Immunizations up to date: Yes Hx Diphtheria, Pertussis, Tetanus Vaccination: Yes - 2010 Review of Systems - Review of Systems Constitutional: denies: Chills, Fever EENT: No symptoms reported Cardiovascular: denies: Chest pain, Palpitations Respiratory: No symptoms reported Gastrointestinal: No symptoms reported Genitourinary: No symptoms reported Female Genitourinary: No symptoms reported Musculoskeletal: No symptoms reported Skin: No symptoms reported Hematologic/Lymphatic: No symptoms reported Neurological/Psychological: Anxiety -: Yes All other systems reviewed and negative Physical Exam - Vital signs Vitals: Temp Pulse Resp BP Pulse Ox 98.6 F 118 H 20 165/115 H 100 04/12/18 17:04 04/12/18 17:04 04/12/18 17:04 04/12/18 17:04 04/12/18 17:04 - General General appearance: Appears well, Alert In distress: None - HEENT Head: Normocephalic, Atraumatic Eyes: Normal Pupils: PERRL - Respiratory Respiratory status: No respiratory distress Chest status: Nontender Breath sounds: Normal Chest palpation: Normal - Cardiovascular Rhythm: Regular Heart sounds: Normal auscultation Murmur: No - Abdominal Inspection: Normal Distension: No distension Bowel sounds: Normal Tenderness: Nontender Organomegaly: No organomegaly - Back Back: Normal, Nontender - Extremities General upper extremity: Normal inspection, Nontender, Normal color, Normal ROM , Normal temperature General lower extremity: Normal inspection, Nontender, Normal color, Normal ROM , Normal temperature, Normal weight bearing. No: Yovani's sign - Neurological Neuro grossly intact: Yes Cognition: Normal Orientation: AAOx4 Ron Coma Scale Eye Opening: Spontaneous [place] Coma Scale Verbal: Oriented [place] Coma Scale Motor: Obeys Commands [place] Coma Scale Total: 15 Speech: Normal Motor strength normal: LUE, RUE, LLE, RLE Sensory: Normal - Psychological Associated symptoms: Normal affect, Normal mood - Skin Skin Temperature: Warm Skin Moisture: Dry Skin Color: Normal Course - Re-evaluation Re-evalutation: 04/13/18 02:10 Patient anxiety resolved in the ED she wants to go home. She has an appointment tomorrow morning to see a psychiatrist. - Vital Signs Vital signs: Temp Pulse Resp BP Pulse Ox 99.3 F 84 16 138/88 H 99 04/12/18 22:21 04/12/18 22:21 04/12/18 22:21 04/12/18 22:21 04/12/18 22:21 - Laboratory Result Diagrams: 04/12/18 18:42 04/12/18 18:42 Laboratory results interpreted by me: 04/12/18 04/12/18 18:42 18:42 WBC 3.6 L Hgb 11.9 L Total Protein 9.1 H Albumin 5.1 H - EKG Interpretation by Me EKG shows normal: Sinus rhythm Rate: Normal - 91 Rhythm: NSR When compared to previous EKG there are: No significant change Additional EKG results interpreted by me: 04/12/18 20:13 No STEMI - Transfer of Care Notes: 04/13/18 02:10 Anxiety disorder. Discharge - Discharge Clinical Impression: Anxiety Condition: Stable Disposition: HOME, SELF-CARE Instructions: Anxiety ([facility]) Additional Instructions: Please follow-up with her psychiatrist tomorrow morning as scheduled. Return to the ED if her condition worsens. Prescriptions: Metoprolol Tartrate [Lopressor 25 mg Tablet] 12.5 mg PO Q12 #30 tab Referrals: [facility] [Provider Group] - Follow up as needed
[2018-04-12] MEDS ORDERED: DIPHENHYDRAMINE HCL 50 MG/ML VIAL IV ONE (19:03)
[2018-04-12] MEDS ORDERED: METOPROLOL SUCCINATE 25 MG TAB.SR.24H PO ONE (19:03)
[2018-04-12] MEDS ORDERED: NORMAL SALINE 1000 ML 1,000 ML IV ONE (19:03)
[2018-04-12 19:09] LABS: ABSOLUTE EOSINOPHILS # (AUTO) 0.1 10^3/uL (0.0-0.6); ABSOLUTE LYMPHOCYTES (AUTO) 1.2 10^3/uL (0.5-4.7); ABSOLUTE MONOCYTES (AUTO) 0.4 10^3/uL (0.1-1.4); ABSOLUTE NEUT (AUTO) 1.9 10^3/uL (1.7-8.2); BASOPHILS % (AUTO) 0.6 % (0-2); EOSINOPHILS % (AUTO) 3.9 % (0-6); HEMATOCRIT 36.3 % (36.0-47.0); HEMOGLOBIN 11.9 g/dL (12.0-15.5); LYMPHOCYTES % (AUTO) 32.5 % (13-45); MEAN CORPUSCULAR HEMOGLOBIN 27.7 pg (27.0-33.4); MEAN CORPUSCULAR HGB CONC 32.7 g/dL (32.0-36.0); MEAN CORPUSCULAR VOLUME 85 fl (80-97); MONOCYTES % (AUTO) 10.7 % (3-13); PLATELET COUNT 159 10^3/uL (150-450); RED CELL DISTRIBUTION WIDTH 13.9 % (11.5-14.0); SEGMENTED NEUTROPHILS % (AUTO) 52.3 % (42-78); TOTAL CELLS COUNTED % (AUTO) 100 %; WHITE BLOOD COUNT 3.6 10^3/uL (4.0-10.5)
[2018-04-12 19:36] LABS: ALANINE AMINOTRANSFERASE 18 U/L (9-52); ALBUMIN 5.1 g/dL (3.5-5.0); ALKALINE PHOSPHATASE 48 U/L (38-126); ANION GAP 14 (5-19); ASPARTATE AMINO TRANSFERASE 23 U/L (14-36); BILIRUBIN,DIRECT 0.3 mg/dL (0.0-0.4); BILIRUBIN,TOTAL 0.7 mg/dL (0.2-1.3); BLOOD UREA NITROGEN 12 mg/dL (7-20); CALCIUM 9.9 mg/dL (8.4-10.2); CARBON DIOXIDE 23 mmol/L (22-30); CHLORIDE 106 mmol/L (98-107); GLUCOSE 98 mg/dL (75-110); POTASSIUM 4.3 mmol/L (3.6-5.0); SODIUM 143.1 mmol/L (137-145); TOTAL PROTEIN 9.1 g/dL (6.3-8.2)
[2018-04-12 20:04] LABS: APPEARANCE,URINE CLEAR; BILIRUBIN,URINE NEGATIVE (NEGATIVE); COLOR,URINE COLORLESS; GLUCOSE, URINE NEGATIVE (NEGATIVE); KETONES,URINE NEGATIVE (NEGATIVE); LEUKOCYTE ESTERASE,URINE NEGATIVE (NEGATIVE); NITRITE,URINE NEGATIVE (NEGATIVE); PROTEIN,URINE NEGATIVE (NEGATIVE); URINE SPECIFIC GRAVITY 1.001; UROBILINOGEN,URINE NEGATIVE mg/dL (<2.0)
[2018-04-12 20:08] LABS: ADD MANUAL MICROSCOPIC YES
[2018-04-12 20:24] LABS: URINE AMPHETAMINES SCREEN NEGATIVE; URINE BARBITURATES SCREEN NEGATIVE; URINE BENZODIAZEPINES SCREEN NEGATIVE; URINE COCAINE SCREEN NEGATIVE; URINE MARIJUANA (THC) SCREEN NEGATIVE; URINE METHADONE SCREEN NEGATIVE; URINE PHENCYCLIDINE SCREEN NEGATIVE
[2018-04-12 20:25] LABS: RBC,URINE 0-1 /HPF; WBC,URINE 0-1 /HPF
[2018-04-12 21:53] LABS: INTERNATIONAL RATION (INR) 1.01; PROTHROMBIN TIME 13.8 SEC (11.4-15.4)
[2018-04-12 21:54] LABS: PARTIAL THROMBOPLASTIN TIME 27.8 SEC (23.5-35.8)
[2018-04-12] MEDS ORDERED: DIPHENHYDRAMINE HCL 25 MG CAPSULE PO ONE (22:05)
--- NOTE | 2018-04-12 22:16 | EKG REPORT ---
SEVERITY:- NORMAL ECG - SINUS RHYTHM : Confirmed by: Lin Jorge 12-Apr-2018 22:15:25
[2018-04-12 22:26] VITALS: BP 138/88
== END 2018-04-12 22:27 | disposition home or self-care (01) ==
LOC: ER 17:00
DX: F41.9 Anxiety disorder, unspecified (principal); F17.200 Nicotine dependence, unspecified, uncomplicated; I10 Essential (primary) hypertension; Z88.6 Allergy status to analgesic agent
CPT/HCPCS: 93005; 99284; 96361; 96374; 36415; 84443; 85025; 85610; 85730; 81025; 80053; 81001; 84484; 80307; 93010; J1200; J7030

== ENCOUNTER 2018-04-16 11:26 | Emergency (ER) | payer SELFPAY ==
[2018-04-16 11:42] VITALS: BP 127/96
[2018-04-16 13:26] LABS: APPEARANCE,URINE SLIGHTLY-CLOUDY; BILIRUBIN,URINE NEGATIVE (NEGATIVE); COLOR,URINE YELLOW; GLUCOSE, URINE NEGATIVE (NEGATIVE); KETONES,URINE TRACE mg/dL (NEGATIVE); LEUKOCYTE ESTERASE,URINE NEGATIVE (NEGATIVE); NITRITE,URINE NEGATIVE (NEGATIVE); PROTEIN,URINE NEGATIVE (NEGATIVE); URINE SPECIFIC GRAVITY 1.016; UROBILINOGEN,URINE NEGATIVE mg/dL (<2.0)
[2018-04-16 13:41] LABS: URINE AMPHETAMINES SCREEN UNCONFIRMED POSITIVE; URINE BARBITURATES SCREEN NEGATIVE; URINE BENZODIAZEPINES SCREEN NEGATIVE; URINE COCAINE SCREEN NEGATIVE; URINE MARIJUANA (THC) SCREEN NEGATIVE; URINE METHADONE SCREEN NEGATIVE; URINE PHENCYCLIDINE SCREEN NEGATIVE
--- NOTE | 2018-04-16 14:05 | ER Document Report ---
ED Medical Screen (RME) - General Chief Complaint: Breathing Difficulty Stated Complaint: DIFFICULTY BREATHING Time Seen by Provider: 04/16/18 12:11 TRAVEL OUTSIDE OF THE [place] IN LAST 30 DAYS: No - HPI Patient complains to provider of: suicidal and anxiety Onset: Other - This 32-year-old female presents for evaluation of worsening shortness of breath chest pain palpitations and thoughts of harming herself due to feeling overwhelmed notes that she has been seeking mental health evaluation has been diagnosed with bipolar disorder in the past but has not been able to obtain appropriate follow-up recently, does not have good enough checkups according her knowledge been listening to her long enough. She has had episodes like this in the past which have been attributed to anxiety. Does endorse occasional thoughts of harming herself but does denies any actual desire to harm her self. Denies any desire to harm anyone else. - Related Data Allergies/Adverse Reactions: ketorolac tromethamine [From Toradol] Allergy (Verified 04/16/18 12:22) meperidine HCl [From Demerol] Allergy (Verified 04/16/18 12:22) metoclopramide HCl [From Reglan] Allergy (Verified 04/16/18 12:22) morphine [Morphine] Allergy (Verified 04/16/18 12:22) tramadol [Tramadol] Allergy (Verified 04/16/18 12:22) Hives ondansetron HCl [From Zofran] Adverse Reaction (Verified 04/16/18 12:22) VOMITING Past Medical History - Social History Chew tobacco use (# tins/day): No Frequency of alcohol use: None Drug Abuse: None Family history: None - Past Medical History Cardiac Medical History: Reports: Hx Hypertension Neurological Medical History: Reports: Hx Migraine Renal/ Medical History: Denies: Hx Peritoneal Dialysis Musculoskeltal Medical History: Reports Hx Musculoskeletal Trauma Psychiatric Medical History: Reports: Hx Anxiety, Hx Attention Deficit Hyperactivity Disorder, Hx Bipolar Disorder, Hx Depression, Hx Post Traumatic Stress Disorder Traumatic Medical History: Reports: Hx Fractures - nose Past Surgical History: Reports: Hx Abdominal Surgery - LAPROSCOPY, Hx Gynecologic Surgery - d&c, lap for endometriosis, Hx Nose Surgery - Reconstruction for fracture, Other - facial reconstruction - Immunizations Immunizations up to date: Yes Hx Diphtheria, Pertussis, Tetanus Vaccination: Yes - 2010 Physical Exam - Vital signs Vitals: Temp Pulse Resp BP Pulse Ox 98.8 F 117 H 26 H 127/96 H 100 04/16/18 11:41 04/16/18 11:41 04/16/18 11:41 04/16/18 11:41 04/16/18 11:41 Course - Re-evaluation Re-evalutation: 04/16/18 14:04 This is a 32-year-old female with a history of bipolar disorder who demonstrates markedly pressured speech, she repeatedly has to be redirected while on examination,. She has been talking about harming herself, have the suspicion that this patient be abusing substances in addition to her prescribed Klonopin as well as Adderall. Given this patient's had difficulty with her bipolar disorder would likely consider decreasing her levels of medications that will defer to follow-up with providers for this. Will place on psychiatric called for appropriate screening. - Vital Signs Vital signs: Temp Pulse Resp BP Pulse Ox 98.8 F 117 H 26 H 127/96 H 100 04/16/18 11:41 04/16/18 11:41 04/16/18 11:41 04/16/18 11:41 04/16/18 11:41 - Laboratory Laboratory results interpreted by me: 04/16/18 12:45 Urine Ketones TRACE H
--- NOTE | 2018-04-16 15:01 | ER Document Report ---
ED General - General TRAVEL OUTSIDE OF THE [place] IN LAST 30 DAYS: No - HPI Patient complains to provider of: Psychiatric evaluation - General Chief Complaint: Breathing Difficulty Stated Complaint: DIFFICULTY BREATHING Time Seen by Provider: 04/16/18 12:11 - HPI Notes: Patient coming in with flight of ideas and pressured speech. Patient was tachypneic and tachycardic upon being triaged upon evaluating patient patient is resting very calmly. Patient states that she was having panic attack while being triaged. Patient also states that she had mentioned suicidal ideation triage however she has no suicidal thoughts at this time no suicidal plan or homicidal plan. Patient states she is not sure why she said there is statements in the triage area. Patient states most of the reasons she is here in the ER is because she is requesting medication to get her life back on track. Patient states multiple stressful events miscarriage unable to go to work because of elevated blood pressure states that she is started on the medication however she has not been released to go back to work because of her blood pressure. Patient is requesting medication reconciliation and prescription for medication to hopefully get her life back the weight was before losing her job and having a miscarriage. Patient's was recently seen Jessica she was noncompliant 4 days ago with her medications the last 4 days she has been taking them as prescribed. (REMI JONES) - Related Data Allergies/Adverse Reactions: ketorolac tromethamine [From Toradol] Allergy (Verified 04/16/18 12:22) meperidine HCl [From Demerol] Allergy (Verified 04/16/18 12:22) metoclopramide HCl [From Reglan] Allergy (Verified 04/16/18 12:22) morphine [Morphine] Allergy (Verified 04/16/18 12:22) tramadol [Tramadol] Allergy (Verified 04/16/18 12:22) Hives ondansetron HCl [From Zofran] Adverse Reaction (Verified 04/16/18 12:22) VOMITING Past Medical History - Social History Smoking Status: Never Smoker Chew tobacco use (# tins/day): No Frequency of alcohol use: None Drug Abuse: None Family History: Arthritis, DM, Hyperlipidemia, Hypertension Patient has suicidal ideation: Yes Patient has homicidal ideation: No - Past Medical History Cardiac Medical History: Reports: Hx Hypertension Neurological Medical History: Reports: Hx Migraine Renal/ Medical History: Denies: Hx Peritoneal Dialysis Musculoskeletal Medical History: Reports Hx Musculoskeletal Trauma Psychiatric Medical History: Reports: Hx Anxiety, Hx Attention Deficit Hyperactivity Disorder, Hx Bipolar Disorder, Hx Depression, Hx Post Traumatic Stress Disorder Traumatic Medical History: Reports: Hx Fractures - nose Past Surgical History: Reports: Hx Abdominal Surgery - LAPROSCOPY, Hx Gynecologic Surgery - d&c, lap for endometriosis, Hx Nose Surgery - Reconstruction for fracture, Other - facial reconstruction - Immunizations Immunizations up to date: Yes Hx Diphtheria, Pertussis, Tetanus Vaccination: Yes - 2010 Review of Systems - Review of Systems Constitutional: No symptoms reported EENT: No symptoms reported Cardiovascular: No symptoms reported Respiratory: No symptoms reported Gastrointestinal: No symptoms reported Genitourinary: No symptoms reported Female Genitourinary: No symptoms reported Musculoskeletal: No symptoms reported Skin: No symptoms reported Hematologic/Lymphatic: No symptoms reported Neurological/Psychological: Anxiety Physical Exam - Vital signs Interpretation: Normal - General General appearance: Appears well, Alert - HEENT Head: Normocephalic, Atraumatic Eyes: Normal Pupils: PERRL - Respiratory Respiratory status: No respiratory distress Chest status: Nontender Breath sounds: Normal Chest palpation: Normal - Cardiovascular Rhythm: Regular Heart sounds: Normal auscultation Murmur: No - Abdominal Inspection: Normal Distension: No distension Bowel sounds: Normal Tenderness: Nontender Organomegaly: No organomegaly - Back Back: Normal, Nontender - Extremities General upper extremity: Normal inspection, Nontender, Normal color, Normal ROM , Normal temperature General lower extremity: Normal inspection, Nontender, Normal color, Normal ROM , Normal temperature, Normal weight bearing. No: Yovani's sign - Neurological Neuro grossly intact: Yes Cognition: Normal Orientation: AAOx4 Ron Coma Scale Eye Opening: Spontaneous [place] Coma Scale Verbal: Oriented [place] Coma Scale Motor: Obeys Commands Ron Coma Scale Total: 15 Speech: Normal Motor strength normal: LUE, RUE, LLE, RLE Sensory: Normal - Psychological Associated symptoms: Normal affect, Anxious - Skin Skin Temperature: Warm Skin Moisture: Dry Skin Color: Normal - Vital signs Vitals: Temp Pulse Resp BP Pulse Ox 98.8 F 117 H 26 H 127/96 H 100 04/16/18 11:41 04/16/18 11:41 04/16/18 11:41 04/16/18 11:41 04/16/18 11:41 Course - Re-evaluation Re-evalutation: 04/16/18 16:00 Patient has only been denying suicidal homicidal ideation. Again restating that she only is here because she would like a medication to "get her life back on track". I explained to the patient at this time I would however psychiatric team come and evaluate the patient for her complaint in the request. 04/16/18 16:02 As recommended the patient be discharged. Patient upon our psychiatric team entering the room stating that she had no suicidal homicidal ideation requesting that she be discharged to follow-up with her own provider tomorrow. I agree with this assessment and plan at this time. Patient will be discharged (REMI JONES) - Vital Signs Vital signs: Temp Pulse Resp BP Pulse Ox 98.8 F 117 H 26 H 127/96 H 100 04/16/18 11:41 04/16/18 11:41 04/16/18 11:41 04/16/18 11:41 04/16/18 11:41 - Laboratory Laboratory results interpreted by me: 04/16/18 12:45 Urine Ketones TRACE H Discharge - Discharge Clinical Impression: Bipolar disorder Condition: Stable Disposition: HOME, SELF-CARE Additional Instructions: You were seen in the ED and evaluated by the Medical and Behavioral Health Teams for suicidal ideation and anxiety and determined to be appropriate for discharge at this time. You are encouraged to follow up with your outpatient provider at [facility] and advise them of this visit. DEPRESSION: Your evaluation reveals that you have depression. While symptoms may be vague, they often include disturbance of sleep, fatigue, loss of appetite, and general loss of interest in life. While depression may be a side effect of drugs, or a reaction to a major change in your life, many cases have no known cause. If depression is acute, and related to a major loss in your life, you can expect it to clear completely with time. If you have been depressed a long time , are prone to repeated bouts of depression or low mood, or have been thinking of suicide, get help. Depression can be treated with anti-depressant medication and counselling. Long-term depression will often take a few weeks to clear, even with appropriate medication. Follow-up care is important. SUICIDAL IDEATION: Suicidal ideation is a common medical term for thoughts about suicide, which may be as detailed as a formulated plan, without the suicidal act itself. Although most people who undergo suicidal ideation do not commit suicide, some go on to make suicide attempts. The range of suicidal ideation varies greatly from fleeting to detailed planning, role playing, and unsuccessful attempts. While thoughts about suicide are common, most people do not carry out serious actions to commit suicide. Based upon your evaluation and discussion with you, we do not believe you are currently at risk to act upon your thoughts of suicide. You have agreed to return to the Emergency Department, at any time , if you feel inclined to act upon your suicidal thoughts. FOLLOW-UP CARE: If you have been referred to a physician for follow-up care, call the physician s office for an appointment as you were instructed or within the next two days. If you experience worsening or a significant change in your symptoms, notify the physician immediately or return to the Emergency Department at any time for re-evaluation.
--- NOTE | 2018-04-17 08:00 | EKG REPORT ---
SEVERITY:- BORDERLINE ECG - SINUS RHYTHM NONSPECIFIC LATERAL ST-T CHANGES : Confirmed by: Dustin Andres MD 17-Apr-2018 07:59:47
--- NOTE | 2018-04-17 19:01 | PSYCHOLOGICAL NOTE ---
Psych Note - Psych Note Psych Note: Reason for Consult: Suicidal Ideation, anxiety Consent for permission: None given to this Clinician pt here stating she is overwhelmed, pt states she is having trouble coping, pt reports some suicidal thoughts but thinks she is having more "flight of thoughts ". pt speaking quickly and thoughts are flighty. Patient states that she has been off of her medication for about a month but just started taking it again 4 days ago. Patient states that prior to starting her medication again, she had been feeling anxious with life in general but did not disclose any specific details. Patient states that she came to the hospital to get "help" with medication even though she previously claimed that she had started her medication 4 days ago. Patient reports that she has a therapist at [facility] and "will just go tomorrow, since it is Tuesday" and she had not previously thought about that. Patient then proclaimed " to be honest with you, I think I just want to be discharged and visit my own doctor tomorrow ". Patient denies any suicidal or homicidal thoughts. Patient denies owning or having access to any weapons. Patient presented to this Clinician very agitated and rushed in her speaking. Patient was alert and oriented, place, time and circumstance. Thought processes were linear and organized. Patient was able to maintain good eye contact. Intellectual abilities were estimated within normal range. Insight, judgment and impulse control were poor. Patient stated that she " would just leave" before the doctor was available to evaluate her. No Medication Recommendations at this time Diagnosis 296.40 (F31.9) Bipolar I Disorder, Unspecified Impression/Plan: Patient is cleared from acute psychiatric services. Patient denies any thoughts of suicide. Patient does not have access to or own any weapons. Patient stated that she intends to follow up with her outpatient provider in the morning for medication management and therapy. Dr. Choudhury was consulted on the care and management of this patient; attending physician is in agreement with recommendations and dispositions.
== END 2018-04-16 15:19 | disposition home or self-care (01) ==
LOC: ER 11:26
DX: F31.9 Bipolar disorder, unspecified (principal); F41.9 Anxiety disorder, unspecified; I10 Essential (primary) hypertension; Z88.8 Allergy status to other drugs, medicaments and biological substances; Z88.5 Allergy status to narcotic agent
CPT/HCPCS: 80307; 81001; 93005; 93010; 99285

== ENCOUNTER → 2018-04-20 | Outpatient (CLI) | payer OTHER ==
[2018-04-20 10:35] LABS: ABSOLUTE EOSINOPHILS # (AUTO) 0.3 10^3/uL (0.0-0.6); ABSOLUTE LYMPHOCYTES (AUTO) 1.7 10^3/uL (0.5-4.7); ABSOLUTE MONOCYTES (AUTO) 0.3 10^3/uL (0.1-1.4); ABSOLUTE NEUT (AUTO) 1.6 10^3/uL (1.7-8.2); BASOPHILS % (AUTO) 0.7 % (0-2); EOSINOPHILS % (AUTO) 6.6 % (0-6); HEMATOCRIT 35.4 % (36.0-47.0); HEMOGLOBIN 11.5 g/dL (12.0-15.5); MEAN CORPUSCULAR HEMOGLOBIN 27.7 pg (27.0-33.4); MEAN CORPUSCULAR HGB CONC 32.5 g/dL (32.0-36.0); MEAN CORPUSCULAR VOLUME 85 fl (80-97); MONOCYTES % (AUTO) 7.9 % (3-13); PLATELET COUNT 182 10^3/uL (150-450); RED BLOOD COUNT 4.16 10^6/uL (3.72-5.28); RED CELL DISTRIBUTION WIDTH 14.1 % (11.5-14.0); SEGMENTED NEUTROPHILS % (AUTO) 41.8 % (42-78); TOTAL CELLS COUNTED % (AUTO) 100 %; WHITE BLOOD COUNT 3.9 10^3/uL (4.0-10.5)
[2018-04-20 11:07] LABS: ALANINE AMINOTRANSFERASE 16 U/L (9-52); ALBUMIN 5.2 g/dL (3.5-5.0); ALKALINE PHOSPHATASE 55 U/L (38-126); ANION GAP 18 (5-19); ASPARTATE AMINO TRANSFERASE 22 U/L (14-36); BILIRUBIN,DIRECT 0.4 mg/dL (0.0-0.4); BILIRUBIN,TOTAL 0.8 mg/dL (0.2-1.3); BLOOD UREA NITROGEN 8 mg/dL (7-20); CALCIUM 9.9 mg/dL (8.4-10.2); CARBON DIOXIDE 22 mmol/L (22-30); CHLORIDE 106 mmol/L (98-107); CHOLESTEROL 163.11 mg/dL (0-200); GLUCOSE 89 mg/dL (75-110); POTASSIUM 3.5 mmol/L (3.6-5.0); SODIUM 146.3 mmol/L (137-145); TOTAL PROTEIN 9.3 g/dL (6.3-8.2); TRIGLYCERIDES 77 mg/dL (<150); URIC ACID 3.2 mg/dL (2.5-6.2)
[2018-04-20 11:21] LABS: DIRECT LDL 78 mg/dL (<100)
[2018-04-20 11:28] LABS: THYROXINE T4 8.54 ug/dL (5.53-11.0)
== END ==
LOC: CCC 09:09
DX: F41.9 Anxiety disorder, unspecified (principal)
CPT/HCPCS: 36415; 80053; 80061; 83036; 83735; 84436; 84443; 84479; 84550; 85025

== ENCOUNTER 2018-05-02 11:47 | Emergency (ER) | payer SELFPAY ==
--- NOTE | 2018-05-02 13:09 | ER Document Report ---
ED General - General Chief Complaint: Anxiety Stated Complaint: POSSIBLE ANXIETY ATTACK Time Seen by Provider: 05/02/18 13:07 TRAVEL OUTSIDE OF THE [place] IN LAST 30 DAYS: No - HPI Notes: Patient is a [] that presents to the emergency department for chief complaint of []. [] Past Medical History: [] Past Surgical History: [] Social History: [] Family History: Reviewed and noncontributory for presenting illness Allergies: Reviewed, see documented allergy list. REVIEW OF SYSTEMS: CONSTITUTIONAL : No fever No chills No diaphoresis No recent illness EENT: No vision changes No congestion No sore throat CARDIOVASCULAR: No chest pain No palpitations RESPIRATORY: No shortness of breath No cough No difficulty breathing GASTROINTESTINAL: No abdominal pain No nausea No vomiting No diarrhea GENITOURINARY: No dysuria No hematuria No difficulty urinating MUSCULOSKELETAL: No back pain No leg pain No arm pain SKIN: No rashes No lesions LYMPHATIC: No swollen, enlarged glands. NEUROLOGICAL: No lightheadedness No headache No weakness No paresthesias PSYCHIATRIC: No anxiety No depression PHYSICAL EXAMINATION: Vital signs reviewed, nursing noted reviewed. GENERAL: Well-appearing, well-nourished and in no acute distress. HEAD: Atraumatic, normocephalic. EYES: Eyes appear normal, extraocular movements intact, sclera anicteric, conjunctiva are normal. ENT: nares patent, oropharynx clear without exudates. Moist mucous membranes. NECK: Normal range of motion, supple without lymphadenopathy LUNGS: Breath sounds clear to auscultation bilaterally and equal. No wheezes rales or rhonchi. HEART: Regular rate and rhythm without murmurs ABDOMEN: Soft, nontender, normoactive bowel sounds. No rebound, guarding, or rigidity. No masses appreciated. EXTREMITIES: Nontender, good range of motion, no pitting or edema. NEUROLOGICAL: No focal neurological deficits. Moves all extremities spontaneously Motor and sensory grossly intact on exam. PSYCH: Normal mood, normal affect. SKIN: Warm, Dry, normal turgor, no rashes or lesions noted on exposed skin - Related Data Allergies/Adverse Reactions: ketorolac tromethamine [From Toradol] Allergy (Verified 05/02/18 11:47) meperidine HCl [From Demerol] Allergy (Verified 05/02/18 11:47) metoclopramide HCl [From Reglan] Allergy (Verified 05/02/18 11:47) morphine [Morphine] Allergy (Verified 05/02/18 11:47) tramadol [Tramadol] Allergy (Verified 05/02/18 11:47) Hives ondansetron HCl [From Zofran] Adverse Reaction (Verified 05/02/18 11:47) VOMITING Past Medical History - Social History Family History: Arthritis, DM, Hyperlipidemia, Hypertension - Past Medical History Cardiac Medical History: Reports: Hx Hypertension Neurological Medical History: Reports: Hx Migraine Renal/ Medical History: Denies: Hx Peritoneal Dialysis Musculoskeletal Medical History: Reports Hx Musculoskeletal Trauma Psychiatric Medical History: Reports: Hx Anxiety, Hx Attention Deficit Hyperactivity Disorder, Hx Bipolar Disorder, Hx Depression, Hx Post Traumatic Stress Disorder Traumatic Medical History: Reports: Hx Fractures - nose Past Surgical History: Reports: Hx Abdominal Surgery - LAPROSCOPY, Hx Gynecologic Surgery - d&c, lap for endometriosis, Hx Nose Surgery - Reconstruction for fracture, Other - facial reconstruction - Immunizations Immunizations up to date: Yes Hx Diphtheria, Pertussis, Tetanus Vaccination: Yes - 2010 Physical Exam - Vital signs Vitals: Temp Pulse Resp BP Pulse Ox 98.2 F 85 16 153/97 H 100 05/02/18 12:10 05/02/18 12:10 05/02/18 12:10 05/02/18 12:10 05/02/18 12:10 Course - Vital Signs Vital signs: Temp Pulse Resp BP Pulse Ox 98.2 F 85 16 153/97 H 100 05/02/18 12:10 05/02/18 12:10 05/02/18 12:10 05/02/18 12:10 05/02/18 12:10 Discharge - Discharge Instructions: Anxiety ([facility]) Referrals: [facility] [Primary Care Provider] - Follow up as needed
[2018-05-02] MEDS ORDERED: CLONAZEPAM 1 MG TABLET PO ONE (13:23)
--- NOTE | 2018-05-02 13:30 | ER Document Report ---
ED General - General Chief Complaint: Anxiety Stated Complaint: POSSIBLE ANXIETY ATTACK Time Seen by Provider: 05/02/18 13:07 TRAVEL OUTSIDE OF THE [place] IN LAST 30 DAYS: No - HPI Notes: Patient is a 32-year-old female that presents to the emergency department for chief complaint of medication refill and yeast infection. Patient has been taking Klonopin for years and states she takes 1 mg twice daily as needed for anxiety. Primary care provider retired and she was referred to a new psychiatrist. She did see her psychiatrist today who prescribed her Adderall but not Klonopin. Patient states she is feeling very anxious. She denies suicidal and homicidal ideation. She also reports symptoms of yeast infection including vaginal itching for the last few days. She was recently on penicillin for a dental infection and states she gets yeast infections after antibiotics often Past Medical History: Anxiety Past Surgical History: Reviewed in chart Social History: Viewed in chart Family History: Reviewed and noncontributory for presenting illness Allergies: Reviewed, see documented allergy list. REVIEW OF SYSTEMS: CONSTITUTIONAL : No fever No chills No diaphoresis No recent illness EENT: No vision changes No congestion No sore throat CARDIOVASCULAR: No chest pain No palpitations RESPIRATORY: No shortness of breath No cough No difficulty breathing GASTROINTESTINAL: No abdominal pain No nausea No vomiting No diarrhea GENITOURINARY: Vaginal itching No hematuria No difficulty urinating MUSCULOSKELETAL: No back pain No leg pain No arm pain SKIN: No rashes No lesions LYMPHATIC: No swollen, enlarged glands. NEUROLOGICAL: No lightheadedness No headache No weakness No paresthesias PSYCHIATRIC: anxiety No depression PHYSICAL EXAMINATION: Vital signs reviewed, nursing noted reviewed. GENERAL: Well-appearing, well-nourished and in no acute distress. HEAD: Atraumatic, normocephalic. EYES: Eyes appear normal, extraocular movements intact, sclera anicteric, conjunctiva are normal. ENT: nares patent, oropharynx clear without exudates. Moist mucous membranes. NECK: Normal range of motion, supple without lymphadenopathy LUNGS: Breath sounds clear to auscultation bilaterally and equal. No wheezes rales or rhonchi. HEART: Regular rate and rhythm without murmurs ABDOMEN: Soft, nontender, normoactive bowel sounds. No rebound, guarding, or rigidity. No masses appreciated. EXTREMITIES: Nontender, good range of motion, no pitting or edema. NEUROLOGICAL: No focal neurological deficits. Moves all extremities spontaneously Motor and sensory grossly intact on exam. PSYCH: Anxious, rapid pressured speech SKIN: Warm, Dry, normal turgor, no rashes or lesions noted on exposed skin - Related Data Allergies/Adverse Reactions: ketorolac tromethamine [From Toradol] Allergy (Verified 05/02/18 11:47) meperidine HCl [From Demerol] Allergy (Verified 05/02/18 11:47) metoclopramide HCl [From Reglan] Allergy (Verified 05/02/18 11:47) morphine [Morphine] Allergy (Verified 05/02/18 11:47) tramadol [Tramadol] Allergy (Verified 05/02/18 11:47) Hives ondansetron HCl [From Zofran] Adverse Reaction (Verified 05/02/18 11:47) VOMITING Past Medical History - Social History Smoking Status: Never Smoker Family History: Arthritis, DM, Hyperlipidemia, Hypertension - Past Medical History Cardiac Medical History: Reports: Hx Hypertension Neurological Medical History: Reports: Hx Migraine Renal/ Medical History: Denies: Hx Peritoneal Dialysis Musculoskeletal Medical History: Reports Hx Musculoskeletal Trauma Psychiatric Medical History: Reports: Hx Anxiety, Hx Attention Deficit Hyperactivity Disorder, Hx Bipolar Disorder, Hx Depression, Hx Post Traumatic Stress Disorder Traumatic Medical History: Reports: Hx Fractures - nose Past Surgical History: Reports: Hx Abdominal Surgery - LAPROSCOPY, Hx Gynecologic Surgery - d&c, lap for endometriosis, Hx Nose Surgery - Reconstruction for fracture, Other - facial reconstruction - Immunizations Immunizations up to date: Yes Hx Diphtheria, Pertussis, Tetanus Vaccination: Yes - 2010 Review of Systems - Review of Systems Notes: Dictated Physical Exam - Vital signs Vitals: Temp Pulse Resp BP Pulse Ox 98.2 F 85 16 153/97 H 100 05/02/18 12:10 05/02/18 12:10 05/02/18 12:10 05/02/18 12:10 05/02/18 12:10 - Notes Notes: Dictated Course - Re-evaluation Re-evalutation: 05/02/18 13:26 Vitals reviewed and stable. Patient appears very anxious. She has been on Klonopin for years and is benzodiazepine dependent. She has had withdrawal symptoms from benzodiazepines in the past. She does have an appointment with a new physician which she is encouraged to keep. I did explain that further refill medications may not be given in the emergency room and that she should keep her primary care physician. Patient given Diflucan for yeast infection. Discharged in stable condition - Vital Signs Vital signs: Temp Pulse Resp BP Pulse Ox 98.2 F 85 16 153/97 H 100 05/02/18 12:10 05/02/18 12:10 05/02/18 12:10 05/02/18 12:10 05/02/18 12:10 Discharge - Discharge Clinical Impression: Anxiety, Medication refill, Yeast infection Condition: Stable Disposition: HOME, SELF-CARE Instructions: Anxiety ([facility]), Benzodiazepines ([facility]) Additional Instructions: Please return to the emergency department if you have any worsening, or concern of your symptoms. Please return to the emergency department if you develop chest pain, difficulty breathing, severe abdominal pain, or ongoing vomiting. Please follow-up with your primary care physician in 2-3 days and any other recommended physicians. If prescribed, take all medications as directed. If you have any questions or concerns do not hesitate to return the emergency department for evaluation. [] Prescriptions: Clonazepam [Klonopin 1 mg Tablet] 1 mg PO BID 4 Days #8 tablet Fluconazole [Diflucan] 150 mg PO ONCE PRN #1 tablet PRN Reason: Referrals: [facility] [Primary Care Provider] - Follow up as needed
[2018-05-02 13:37] VITALS: BP 147/104
== END 2018-05-02 13:40 | disposition home or self-care (01) ==
LOC: ER 11:47
DX: Z76.0 Encounter for issue of repeat prescription (principal); F41.9 Anxiety disorder, unspecified; F13.20 Sedative, hypnotic or anxiolytic dependence, uncomplicated; B37.9 Candidiasis, unspecified; I10 Essential (primary) hypertension; F90.9 Attention-deficit hyperactivity disorder, unspecified type; Z88.8 Allergy status to other drugs, medicaments and biological substances; Z88.5 Allergy status to narcotic agent
CPT/HCPCS: 99283

== ENCOUNTER 2018-05-06 22:02 | Emergency (ER) | payer SELFPAY ==
[2018-05-06 22:15] VITALS: BP 142/96
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
--- NOTE | 2018-05-07 09:30 | EKG REPORT ---
SEVERITY:- NORMAL ECG - SINUS RHYTHM : Confirmed by: Lin Jorge 07-May-2018 09:29:28
== END 2018-05-06 23:24 | disposition home or self-care (01) ==
LOC: ER 22:02
DX: Z76.0 Encounter for issue of repeat prescription (principal); F41.9 Anxiety disorder, unspecified; R07.9 Chest pain, unspecified; Z79.899 Other long term (current) drug therapy; F17.200 Nicotine dependence, unspecified, uncomplicated; I10 Essential (primary) hypertension
CPT/HCPCS: 93005; 93010; 99283

== ENCOUNTER 2018-05-09 16:57 | Emergency (ER) | payer SELFPAY ==
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
[2018-05-09] MEDS ORDERED: CLONIDINE HCL 0.2 MG TABLET PO ONE (19:19)
[2018-05-09] MEDS ORDERED: CLONAZEPAM 1 MG TABLET PO ONE (19:19)
[2018-05-09 19:36] VITALS: BP 140/87
== END 2018-05-09 19:35 | disposition home or self-care (01) ==
LOC: ER 16:57
DX: F41.9 Anxiety disorder, unspecified (principal); Z76.0 Encounter for issue of repeat prescription; R06.02 Shortness of breath; M79.1 Myalgia; R11.0 Nausea; F17.210 Nicotine dependence, cigarettes, uncomplicated; I10 Essential (primary) hypertension; R53.1 Weakness; Z88.8 Allergy status to other drugs, medicaments and biological substances; Z88.5 Allergy status to narcotic agent
CPT/HCPCS: 99284

== ENCOUNTER 2018-05-14 19:31 | Emergency (ER) | payer SELFPAY ==
[2018-05-14 20:08] VITALS: BP 136/102
== END 2018-05-14 20:53 | disposition left against medical advice (07) ==
LOC: ER 19:31
DX: Z53.21 Procedure and treatment not carried out due to patient leaving prior to being seen by health care provider (principal)

== ENCOUNTER 2018-05-15 15:47 | Emergency (ER) | payer SELFPAY ==
--- NOTE | 2018-05-15 16:54 | ER Document Report ---
ED Medical Screen (RME) - General Chief Complaint: High Blood Pressure Stated Complaint: BLOOD PRESSURE ISSUES Time Seen by Provider: 05/15/18 16:50 Mode of Arrival: Ambulatory Information source: Patient Notes: 32 yo female c/o bad headache right forehead through to the back since yesterday at 7 pm. Out of her clonidine 0.1 daily, given #[address] de león on . Her psych dr used to prescribe the lisinipril/hctz (d/c'd due to drop in bp). Dr. De León stopped the metoprolol bid. Missed menses on 05-08, spotting for few days. TRAVEL OUTSIDE OF THE [place] IN LAST 30 DAYS: No - Related Data Allergies/Adverse Reactions: ketorolac tromethamine [From Toradol] Allergy (Verified 05/15/18 15:53) meperidine HCl [From Demerol] Allergy (Verified 05/15/18 15:53) metoclopramide HCl [From Reglan] Allergy (Verified 05/15/18 15:53) morphine [Morphine] Allergy (Verified 05/15/18 15:53) nalbuphine [From Nubain] Allergy (Verified 05/15/18 15:53) Hives tramadol [Tramadol] Allergy (Verified 05/15/18 15:53) Hives ondansetron HCl [From Zofran] Adverse Reaction (Verified 05/15/18 15:53) VOMITING Past Medical History - Social History Family history: None - Past Medical History Cardiac Medical History: Reports: Hx Hypertension Neurological Medical History: Reports: Hx Migraine Renal/ Medical History: Denies: Hx Peritoneal Dialysis Musculoskeltal Medical History: Reports Hx Musculoskeletal Trauma Psychiatric Medical History: Reports: Hx Anxiety, Hx Attention Deficit Hyperactivity Disorder, Hx Bipolar Disorder, Hx Depression, Hx Post Traumatic Stress Disorder Traumatic Medical History: Reports: Hx Fractures - nose Past Surgical History: Reports: Hx Abdominal Surgery - LAPROSCOPY, Hx Gynecologic Surgery - d&c, lap for endometriosis, Hx Nose Surgery - Reconstruction for fracture, Other - facial reconstruction - Immunizations Immunizations up to date: Yes Hx Diphtheria, Pertussis, Tetanus Vaccination: Yes - 2010 Physical Exam - Vital signs Vitals: Temp Pulse Resp BP Pulse Ox 98.0 F 91 16 125/94 H 99 05/15/18 16:06 05/15/18 16:06 05/15/18 16:06 05/15/18 16:06 05/15/18 16:06 Course - Vital Signs Vital signs: Temp Pulse Resp BP Pulse Ox 98.0 F 91 16 125/94 H 99 05/15/18 16:06 05/15/18 16:06 05/15/18 16:06 05/15/18 16:06 05/15/18 16:06
[2018-05-15] MEDS ORDERED: DIPHENHYDRAMINE HCL 50 MG/ML VIAL IV ONE (16:55)
[2018-05-15] MEDS ORDERED: METOCLOPRAMIDE HCL INJ/PF 10 MG/2 ML SDV IV ONE (16:56)
[2018-05-15] MEDS ORDERED: DIPHENHYDRAMINE HCL 50 MG CAPSULE PO ONE ×2 (17:42→19:42)
[2018-05-15] MEDS ORDERED: ACETAMINOPHEN 325 MG TABLET PO ONE (17:42)
[2018-05-15] MEDS ORDERED: PROMETHAZINE HCL 25 MG TABLET PO ONE (17:52)
[2018-05-15] MEDS ORDERED: PROMETHAZINE HCL INJ 25 MG/1 ML VIAL IM ONE (19:42)
[2018-05-15] MEDS ORDERED: METHYLPREDNISOLONE INJ 125 MG/2 ML SDV IM ONE (19:42)
--- NOTE | 2018-05-15 19:46 | ER Document Report ---
ED General - General Chief Complaint: High Blood Pressure Stated Complaint: BLOOD PRESSURE ISSUES Time Seen by Provider: 05/15/18 16:50 Mode of Arrival: Ambulatory TRAVEL OUTSIDE OF THE [place] IN LAST 30 DAYS: No - HPI Notes: Patient is a 32-year-old female with a history of headaches and elevated blood pressure who presents to the ED requesting a refill of her clonidine medication as she has not been able to make an appointment yet with the [facility]. Patient does believe, however, that she can walk-in this week. Patient states that this medicine has been working well for her she is tolerating it without any side effects to note. Patient states that she also developed nasal congestion/discharge and right-sided sinus pressure and sinus headache that began 2 days ago. Patient states that her headache is primarily above her right eye and does not radiate. She states that the headache feels like a "pressure." BERGER was not sudden or like a 'thunderclap.' She has not been using any [id number] meds for her symptoms. She is still able to eat and drink without any difficulties. She is urinating normally and having normal bowel movements. Patient states that she did have spotting as she missed her period a week ago, but is currently not bleeding and does not have any associated pelvic pain. Denies any fever, head injury, neck pain/stiffness , changes in vision/speech/mentation/hearing, sore throat, chest pain, palpitations, syncope, cough, shortness of breath, wheeze, dyspnea, abdominal pain, vomiting/diarrhea, urinary retention, dysuria, hematuria, back pain, loss of control of bowel or bladder, numbness/tingling, saddle anesthesia, muscle paralysis/weakness, or rash. - Related Data Allergies/Adverse Reactions: ketorolac tromethamine [From Toradol] Allergy (Verified 05/15/18 15:53) meperidine HCl [From Demerol] Allergy (Verified 05/15/18 15:53) metoclopramide HCl [From Reglan] Allergy (Verified 05/15/18 15:53) morphine [Morphine] Allergy (Verified 05/15/18 15:53) nalbuphine [From Nubain] Allergy (Verified 05/15/18 15:53) Hives tramadol [Tramadol] Allergy (Verified 05/15/18 15:53) Hives ondansetron HCl [From Zofran] Adverse Reaction (Verified 05/15/18 15:53) VOMITING Past Medical History - General Information source: Patient - Social History Smoking Status: Unknown if Ever Smoked Family History: Arthritis, DM, Hyperlipidemia, Hypertension - Past Medical History Cardiac Medical History: Reports: Hx Hypertension Neurological Medical History: Reports: Hx Migraine Renal/ Medical History: Denies: Hx Peritoneal Dialysis Musculoskeletal Medical History: Reports Hx Musculoskeletal Trauma Psychiatric Medical History: Reports: Hx Anxiety, Hx Attention Deficit Hyperactivity Disorder, Hx Bipolar Disorder, Hx Depression, Hx Post Traumatic Stress Disorder Traumatic Medical History: Reports: Hx Fractures - nose Past Surgical History: Reports: Hx Abdominal Surgery - LAPROSCOPY, Hx Gynecologic Surgery - d&c, lap for endometriosis, Hx Nose Surgery - Reconstruction for fracture, Other - facial reconstruction - Immunizations Immunizations up to date: Yes Hx Diphtheria, Pertussis, Tetanus Vaccination: Yes - 2010 Review of Systems - Review of Systems -: Yes All other systems reviewed and negative Physical Exam - Vital signs Vitals: Temp Pulse Resp BP Pulse Ox 98.0 F 91 16 125/94 H 99 05/15/18 16:06 05/15/18 16:06 05/15/18 16:06 05/15/18 16:06 05/15/18 16:06 - Notes Notes: PHYSICAL EXAMINATION: GENERAL: Well-appearing, well-nourished and in no acute distress. A&Ox4. Answers questions appropriately. HEAD: Atraumatic, normocephalic. Non-tender. EYES: Pupils equal round and reactive to light, extraocular movements intact, sclera anicteric, conjunctiva are normal. No nystagmus. vis bai intact. ENT: EAC clear b/l. TM's intact b/l without erythema, fluid, or perforation. Nares patent and with clear discharge. oropharynx clear without exudates. No tonsilar hypertrophy or erythema. Moist mucous membranes. + sinus tenderness/ pressure to the rt frontal, correlates with BERGER described. NECK: Normal range of motion, supple without lymphadenopathy. No rigidity/ meningismus. No midline tenderness. Kernig/brudzinski neg. LUNGS: Breath sounds clear to auscultation bilaterally and equal. No wheezes rales or rhonchi. HEART: Regular rate and rhythm without murmurs, rubs, gallops. ABDOMEN: Soft, nontender, nondistended abdomen. No guarding, no rebound. Normal bowel sounds present. No CVA tenderness bilaterally. Musculoskeletal: Ext b/l: FROM to passive/active. Strength 5+/5. No deficits noted. No bony tenderness of extremities. Extremities: No cyanosis, clubbing, or edema b/l. Peripheral pulses 2+. Capillary refill less than 2 seconds. NEUROLOGICAL: NIH 0. GCS 15. Cranial nerves grossly intact. Normal speech, normal gait. Normal sensory, motor exams. Reflexes 2+ b/l. HEATHER's negative. Pronator drift negative. Heel/jones, finger/nose wnl. PSYCH: Normal mood, normal affect. SKIN: Warm, Dry, normal turgor, no rashes or lesions noted. Course - Re-evaluation Re-evalutation: 05/15/18 20:45 Patient is an afebrile, well-hydrated, 32-year-old female who presents to the ED with acute sinusitis and suspected sinus headache, suspect viral. Vitals are acceptable without any significant tachycardia, tachypnea, or hypoxia. PE is otherwise unremarkable for any focal neurological deficits. NIH 0, GCS 15, cranial nerves grossly intact. Patient had reproducible tenderness with palpation to her right frontal sinus with noted URI symptoms. Patient was given Benadryl, Solu-Medrol, and Phenergan. Patient is nontoxic-appearing and is tolerating p.o. without difficulties. Patient had improvement in her headache with the medication. No further imaging or labs warranted at this time based on H&P. Low suspicion for any acute glaucoma, temporal arteritis, meningitis, intracranial hemorrhage, ischemic stroke, or fracture at this time. Patient is aware that this condition can change from initial presentation and that she needs to monitor symptoms closely for any acute changes. I will send her home with more of her clonidine that she ran out of. Patient is to recheck with her PCM this week. Return to the ED with any worsening/concerning symptoms otherwise as reviewed in discharge. Patient is in agreement. - Vital Signs Vital signs: Temp Pulse Resp BP Pulse Ox 98.0 F 91 16 125/94 H 99 05/15/18 16:06 05/15/18 16:06 05/15/18 16:06 05/15/18 16:06 05/15/18 16:06 Discharge - Discharge Clinical Impression: Medication refill Acute sinusitis Qualifiers: Sinusitis location: frontal Recurrence: not specified as recurrent Qualified Code(s): J01.10 - Acute frontal sinusitis, unspecified Condition: Stable Disposition: HOME, SELF-CARE Additional Instructions: Maintain adequate fluid intake Take meds as directed tylenol/ibuprofen as needed over the counter cold medication as needed for symptoms Humidified air may help Monitor BP daily and keep a log Low sodium diet exercise as able Wash your hands regularly F/u: with your PCM in 3-5 days for a recheck Return to the ED with any fever, worsening pain, chest pain, palpitations, syncope, worsening BERGER, neck pain/stiffness, shortness of breath, wheezing, drooling, trouble swallowing/breathing, abdominal pain, n/v/d, rash, or worsening/concerning symptoms otherwise. Prescriptions: Clonidine HCl 0.1 mg PO DAILY #10 tablet Forms: Elevated Blood Pressure Referrals: [facility] [Provider Group] - 05/17/18
[2018-05-15 21:01] VITALS: BP 132/83
== END 2018-05-15 21:03 | disposition home or self-care (01) ==
LOC: ER 15:47
DX: J01.10 Acute frontal sinusitis, unspecified (principal); R03.0 Elevated blood-pressure reading, without diagnosis of hypertension; R51 Headache; Z88.6 Allergy status to analgesic agent
CPT/HCPCS: 99283; 96372; 81025; J2930; J2765; J2550; J1200

== ENCOUNTER 2018-05-28 03:59 | Emergency (ER) | payer SELFPAY ==
[2018-05-28 04:05] VITALS: BP 141/95
[2018-05-28] MEDS ORDERED: DIPHENHYDRAMINE HCL 50 MG/ML VIAL IM ONE (04:22)
[2018-05-28] MEDS ORDERED: DEXAMETHASONE SOD PHOS INJ 10 MG/1 ML VIAL IM ONE (04:22)
--- NOTE | 2018-05-28 04:27 | ER Document Report ---
ED General - General Chief Complaint: Sore Throat Stated Complaint: THROAT PAIN Time Seen by Provider: 05/28/18 04:09 Notes: Patient is a 32-year-old female presents with complaint of sore throat. She says that she is working [employer]. 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 She says she sometimes gets around all the particles and dust. She thinks this is caused her to have a sore throat. She has no mechanical difficulty swallowing but says it does hurts to swallow and therefore she will not eat solid foods. She says she has been drinking liquids. No difficulty breathing. No fevers. No cough or congestion. Patient second complaint is that ever since she started her job she is not been able to sleep. She started the job Tuesday last week. She is on Adderall and several psychiatric medications. She denies any recent changes in dosages of these medications. She has not tried Benadryl for sleep. TRAVEL OUTSIDE OF THE [place] IN LAST 30 DAYS: No - Related Data Allergies/Adverse Reactions: ketorolac tromethamine [From Toradol] Allergy (Verified 05/15/18 15:53) meperidine HCl [From Demerol] Allergy (Verified 05/15/18 15:53) metoclopramide HCl [From Reglan] Allergy (Verified 05/15/18 15:53) morphine [Morphine] Allergy (Verified 05/15/18 15:53) nalbuphine [From Nubain] Allergy (Verified 05/15/18 15:53) Hives tramadol [Tramadol] Allergy (Verified 05/15/18 15:53) Hives ondansetron HCl [From Zofran] Adverse Reaction (Verified 05/15/18 15:53) VOMITING Past Medical History - Social History Smoking Status: Current Every Day Smoker Frequency of alcohol use: None Drug Abuse: None Family History: Arthritis, DM, Hyperlipidemia, Hypertension Patient has suicidal ideation: No Patient has homicidal ideation: No - Past Medical History Cardiac Medical History: Reports: Hx Hypertension Neurological Medical History: Reports: Hx Migraine Renal/ Medical History: Denies: Hx Peritoneal Dialysis Musculoskeletal Medical History: Reports Hx Musculoskeletal Trauma Psychiatric Medical History: Reports: Hx Anxiety, Hx Attention Deficit Hyperactivity Disorder, Hx Bipolar Disorder, Hx Depression, Hx Post Traumatic Stress Disorder Traumatic Medical History: Reports: Hx Fractures - nose Past Surgical History: Reports: Hx Abdominal Surgery - LAPROSCOPY, Hx Gynecologic Surgery - d&c, lap for endometriosis, Hx Nose Surgery - Reconstruction for fracture, Other - facial reconstruction - Immunizations Immunizations up to date: Yes Hx Diphtheria, Pertussis, Tetanus Vaccination: Yes - 2010 Review of Systems - Review of Systems Notes: My Normal Review Basic REVIEW OF SYSTEMS: CONSTITUTIONAL : Denies fever, chills, or sweats. Denies recent illness. EENT: Sore throat RESPIRATORY: Denies cough, cold, or chest congestion. Denies shortness of breath, difficulty breathing, or wheezing. GASTROINTESTINAL: Denies abdominal pain. Denies nausea, vomiting, or diarrhea. Denies constipation. Last BM: NEUROLOGICAL: Denies altered mental status or loss of consciousness. ALL OTHER SYSTEMS REVIEWED AND NEGATIVE. Physical Exam - Vital signs Vitals: Temp Pulse Resp BP Pulse Ox 98.4 F 111 H 16 141/95 H 100 05/28/18 04:03 05/28/18 04:03 05/28/18 04:03 05/28/18 04:03 05/28/18 04:03 - Notes Notes: General Appearance: Well nourished, alert, cooperative, no acute distress, mild obvious discomfort. Vitals: reviewed, See vital signs table. Head: no swelling or tenderness to the head Eyes: PERRL, EOMI, Conjuctiva clear Mouth: No decreasd moisture Ears: Normal-appearing tympanic membranes bilaterally. Throat: Patient is some mild pharyngeal erythema. No tonsil enlargement. No peritonsillar inflammation. No exudates. Neck: Supple, no neck tenderness, No swelling. No lymphadenopathy. Lungs: No wheezing, No rales, No rhonci, No accessory muscle use, good air exchange bilaterally. Abdomen: Normal BS, soft, No rigidity, No abdominal tenderness, No guarding, no rebound, no abdominal masses, no organomegaly Neuro: speech clear, oriented x 3, normal affect, responds appropriately to questions. Course - Re-evaluation Re-evalutation: 05/28/18 04:34 Patient has may be just mild erythema to the pharynx. I do not suspect strep pharyngitis and that she does not have tonsil enlargement, she does not have exudates, she does not have lymphadenopathy, and she does not fevers. Patient also complains about insomnia. She seems anxious about this. She is on medications, such as Adderall, which can affect her sleep patterns. I did inform her of this and told her she needs to discuss this with her psychiatrist. I will give her a dose of Benadryl. Patient herself says that the Benadryl helps with her pain and also requested. I informed her this also may help with sleep. We will give her 2 days off work to rest and relax. Did give her a shot of Decadron to see if this helps with some of the sensation of inflammation in her throat. Currently she has no stridor, she has no signs of airway obstruction, she has no fever, she looks well. I feel that she is safe to be discharged home. I encouraged her return to ER if she has throat swelling , difficulty breathing, fevers, or she feels that she is worsening in any way. Patient agrees with plan will be discharged home. Dictation of this chart was performed using voice recognition software; therefore, there may be some unintended grammatical errors. - Vital Signs Vital signs: Temp Pulse Resp BP Pulse Ox 98.4 F 111 H 16 141/95 H 100 05/28/18 04:03 05/28/18 04:03 05/28/18 04:03 05/28/18 04:03 05/28/18 04:03 Discharge - Discharge Clinical Impression: Sore throat Insomnia Qualifiers: Insomnia type: unspecified Qualified Code(s): G47.00 - Insomnia, unspecified Condition: Good Disposition: HOME, SELF-CARE Additional Instructions: Please talk to your doctor about your insomnia and if you need some changes in your medications to help allow for more sleep. You can take 50mg of Benadryl at night to help with sleep. Please take Ibuprofen 400mg every 6 hours and Tylenol 325mg every 4 hours to help with pain. Please return to the ER if you have fevers, worsening difficulty swallowing, or increasing throat swelling. Prescriptions: Nystatin/Dexameth/Diphen [Magic Mouthwash ([facility] Formula) Susp] 5 ml PO QID #120 ml Forms: Return to Work
== END 2018-05-28 04:45 | disposition home or self-care (01) ==
LOC: ER 03:59
DX: J02.9 Acute pharyngitis, unspecified (principal); G47.00 Insomnia, unspecified; F17.200 Nicotine dependence, unspecified, uncomplicated; I10 Essential (primary) hypertension; Z88.6 Allergy status to analgesic agent
CPT/HCPCS: 99282; 96372; J1200; J1100

== ENCOUNTER 2018-06-06 23:01 | Emergency (ER) | payer SELFPAY ==
--- NOTE | 2018-06-07 00:43 | ER Document Report ---
ED GI/ - General Chief Complaint: Vaginal itch and wants anxiety medication Stated Complaint: VAGINAL ITCHING Time Seen by Provider: 06/07/18 00:43 Mode of Arrival: Ambulatory Information source: Patient Notes: Patient presented to the emergency room history of anxiety and she wants a dose of her Klonopin because she is unable to fill her prescription. She also says she has vaginal itching due to Carine infection and she wants a dose of Diflucan. And does not want any pelvic exam done. She also wants a dose of Tylenol for headache. And Zantac for acid reflux. Patient says she cannot afford her medication and she wants a dose of her medication. Denies any other medical problem. She also denies suicidal or homicidal addition. TRAVEL OUTSIDE OF THE [place] IN LAST 30 DAYS: No - HPI Onset: Just prior to arrival Timing/Duration: Sudden Quality of pain: No pain Pain Level: Denies Vaginal bleeding (Compared to normal period): None OB ultrasound done: No vitamins taken: No Sexual history: Inactive Associated symptoms: None Exacerbated by: Denies Similar symptoms previously: No Recently seen / treated by doctor: Yes - Related Data Allergies/Adverse Reactions: ketorolac tromethamine [From Toradol] Allergy (Verified 05/15/18 15:53) meperidine HCl [From Demerol] Allergy (Verified 05/15/18 15:53) metoclopramide HCl [From Reglan] Allergy (Verified 05/15/18 15:53) morphine [Morphine] Allergy (Verified 05/15/18 15:53) nalbuphine [From Nubain] Allergy (Verified 05/15/18 15:53) Hives tramadol [Tramadol] Allergy (Verified 05/15/18 15:53) Hives ondansetron HCl [From Zofran] Adverse Reaction (Verified 05/15/18 15:53) VOMITING Past Medical History - Social History Smoking Status: Current Every Day Smoker Chew tobacco use (# tins/day): No Frequency of alcohol use: None Drug Abuse: None Family History: Arthritis, DM, Hyperlipidemia, Hypertension Patient has suicidal ideation: No Patient has homicidal ideation: No - Past Medical History Cardiac Medical History: Reports: Hx Hypertension Neurological Medical History: Reports: Hx Migraine Renal/ Medical History: Denies: Hx Peritoneal Dialysis Musculoskeletal Medical History: Reports Hx Musculoskeletal Trauma Psychiatric Medical History: Reports: Hx Anxiety, Hx Attention Deficit Hyperactivity Disorder, Hx Bipolar Disorder, Hx Depression, Hx Post Traumatic Stress Disorder Traumatic Medical History: Reports: Hx Fractures - nose Past Surgical History: Reports: Hx Abdominal Surgery - LAPROSCOPY, Hx Gynecologic Surgery - d&c, lap for endometriosis, Hx Nose Surgery - Reconstruction for fracture, Other - facial reconstruction - Immunizations Immunizations up to date: Yes Hx Diphtheria, Pertussis, Tetanus Vaccination: Yes - 2010 Review of Systems - Review of Systems Constitutional: No symptoms reported EENT: No symptoms reported Cardiovascular: No symptoms reported Respiratory: No symptoms reported Gastrointestinal: No symptoms reported Genitourinary: Other - Vaginal itching Female Genitourinary: No symptoms reported Musculoskeletal: No symptoms reported Skin: No symptoms reported Hematologic/Lymphatic: No symptoms reported Neurological/Psychological: No symptoms reported Physical Exam - Vital signs Vitals: Temp Pulse BP Pulse Ox 97.9 F 86 132/91 H 100 06/07/18 01:07 06/07/18 01:07 06/07/18 01:07 06/07/18 01:07 Interpretation: Normal - General General appearance: Appears well, Alert - HEENT Head: Normocephalic, Atraumatic Eyes: Normal Pupils: PERRL - Respiratory Respiratory status: No respiratory distress Chest status: Nontender Breath sounds: Normal Chest palpation: Normal - Cardiovascular Rhythm: Regular Heart sounds: Normal auscultation Murmur: No - Abdominal Inspection: Normal Distension: No distension Bowel sounds: Normal Tenderness: Nontender Organomegaly: No organomegaly - Back Back: Normal, Nontender - Extremities General upper extremity: Normal inspection, Nontender, Normal color, Normal ROM , Normal temperature General lower extremity: Normal inspection, Nontender, Normal color, Normal ROM , Normal temperature, Normal weight bearing. No: Yovani's sign - Neurological Neuro grossly intact: Yes Cognition: Normal Orientation: AAOx4 Ron Coma Scale Eye Opening: Spontaneous [place] Coma Scale Verbal: Oriented Ron Coma Scale Motor: Obeys Commands Ron Coma Scale Total: 15 Speech: Normal Motor strength normal: LUE, RUE, LLE, RLE Sensory: Normal - Psychological Associated symptoms: Normal affect, Normal mood - Skin Skin Temperature: Warm Skin Moisture: Dry Skin Color: Normal Course - Vital Signs Vital signs: Temp Pulse Resp BP Pulse Ox 97.9 F 86 132/91 H 100 06/07/18 01:07 06/07/18 01:07 06/07/18 01:07 06/07/18 01:07 - Transfer of Care Notes: 06/07/18 01:36 Vaginal itching. Anxiety Disorder. Discharge - Discharge Clinical Impression: Anxiety Condition: Stable Disposition: HOME, SELF-CARE Instructions: Anxiety ([facility]) Additional Instructions: Please follow-up with your primary doctor tomorrow morning. Return to the emergency room if your condition worsens.
[2018-06-07 01:09] VITALS: BP 132/91
[2018-06-07] MEDS ORDERED: CLONAZEPAM 1 MG TABLET PO ONE (01:30)
[2018-06-07] MEDS ORDERED: FLUCONAZOLE 100 MG TABLET PO ONE (01:30)
[2018-06-07] MEDS ORDERED: ACETAMINOPHEN 325 MG TABLET PO ONE (01:31)
== END 2018-06-07 01:47 | disposition home or self-care (01) ==
LOC: ER 23:01
DX: F41.9 Anxiety disorder, unspecified (principal); L29.9 Pruritus, unspecified; R51 Headache; K21.9 Gastro-esophageal reflux disease without esophagitis; F17.200 Nicotine dependence, unspecified, uncomplicated; I10 Essential (primary) hypertension; Z88.8 Allergy status to other drugs, medicaments and biological substances; Z88.5 Allergy status to narcotic agent
CPT/HCPCS: 99283

== ENCOUNTER 2018-06-17 02:23 | Emergency (ER) | payer SELFPAY ==
[2018-06-17] MEDS ORDERED: HALOPERIDOL 5 MG TABLET PO ONE (03:16)
--- NOTE | 2018-06-17 03:29 | ER Document Report ---
ED General - General Chief Complaint: High Blood Pressure Stated Complaint: BLOOD PRESSURE ISSUE Time Seen by Provider: 06/17/18 02:49 Mode of Arrival: Ambulatory Information source: Patient Notes: Patient is a 32-year-old female who has a history of bipolar disorder and anxiety. She presents today with "blood pressure" problems. Her blood pressure today is 128/85 but her heart rate is 127. She states she has had a 30 pound weight loss in 2 months. She states that she was seen in the [facility] for her labs, but not has received the results. She states that little things bother her, for example "trash cans not being turned a certain way, TV shows with high anxiety situations and depression, and other situations that should not bother her." States she takes Klonopin for her anxiety but she says it is not helping her. TRAVEL OUTSIDE OF THE [place] IN LAST 30 DAYS: No - Related Data Allergies/Adverse Reactions: ketorolac tromethamine [From Toradol] Allergy (Verified 06/17/18 02:24) meperidine HCl [From Demerol] Allergy (Verified 06/17/18 02:24) metoclopramide HCl [From Reglan] Allergy (Verified 06/17/18 02:24) morphine [Morphine] Allergy (Verified 06/17/18 02:24) nalbuphine [From Nubain] Allergy (Verified 06/17/18 02:24) Hives tramadol [Tramadol] Allergy (Verified 06/17/18 02:24) Hives ondansetron HCl [From Zofran] Adverse Reaction (Verified 06/17/18 02:24) VOMITING Past Medical History - General Information source: Patient - Social History Smoking Status: Current Every Day Smoker Frequency of alcohol use: None Drug Abuse: None Family History: Arthritis, DM, Hyperlipidemia, Hypertension - Past Medical History Cardiac Medical History: Reports: Hx Hypertension Neurological Medical History: Reports: Hx Migraine Renal/ Medical History: Denies: Hx Peritoneal Dialysis Musculoskeletal Medical History: Reports Hx Musculoskeletal Trauma Psychiatric Medical History: Reports: Hx Anxiety, Hx Attention Deficit Hyperactivity Disorder, Hx Bipolar Disorder, Hx Depression, Hx Post Traumatic Stress Disorder Traumatic Medical History: Reports: Hx Fractures - nose Past Surgical History: Reports: Hx Abdominal Surgery - LAPROSCOPY, Hx Gynecologic Surgery - d&c, lap for endometriosis, Hx Nose Surgery - Reconstruction for fracture, Other - facial reconstruction - Immunizations Immunizations up to date: Yes Hx Diphtheria, Pertussis, Tetanus Vaccination: Yes - 2010 Review of Systems - Review of Systems Notes: REVIEW OF SYSTEMS: CONSTITUTIONAL : Denies fever, chills, or sweats. Denies recent illness. EENT: Denies eye, ear, throat, or mouth pain or symptoms. Denies nasal or sinus congestion. CARDIOVASCULAR: Denies chest pain. RESPIRATORY: Denies cough, cold, or chest congestion. Denies shortness of breath, difficulty breathing, or wheezing. GASTROINTESTINAL: Denies abdominal pain. Denies nausea, vomiting, or diarrhea. Denies constipation. GENITOURINARY: Denies difficulty urinating, painful urination, burning, frequency, or blood in urine. FEMALE GENITOURINARY: Denies vaginal bleeding, abnormal or irregular periods. LMP: 06/15/18 MUSCULOSKELETAL: Denies neck or back pain or joint pain or swelling. SKIN: Denies rash or skin lesions. HEMATOLOGIC : Denies easy bruising or bleeding. LYMPHATIC: Denies swollen, enlarged glands. NEUROLOGICAL: Denies altered mental status or loss of consciousness. Denies headache. Denies weakness or paralysis or loss of use of either side. Denies problems with gait or speech. Denies sensory or motor loss. PSYCHIATRIC: Positive for anxiety, stress, and depression. ALL OTHER SYSTEMS REVIEWED AND NEGATIVE. Physical Exam - Vital signs Vitals: Temp Pulse Resp BP Pulse Ox 98.5 F 127 H 18 128/85 H 100 06/17/18 02:29 06/17/18 02:29 06/17/18 02:29 06/17/18 02:29 06/17/18 02:29 - Notes Notes: PHYSICAL EXAMINATION: GENERAL: Well-appearing, no acute distress. HEAD: Atraumatic, normocephalic. EYES: Pupils equal round and reactive to light, extraocular movements intact, sclera anicteric, conjunctiva are normal. ENT: nares patent, oropharynx clear without exudates. Dry mucous membranes. Poor dentition. NECK: Normal range of motion, supple without lymphadenopathy LUNGS: Breath sounds clear to auscultation bilaterally and equal. No wheezes rales or rhonchi. HEART: Regular rate and rhythm without murmurs ABDOMEN: Soft, nontender, normoactive bowel sounds. No guarding, no rebound. No masses appreciated. EXTREMITIES: Normal range of motion, no pitting or edema. No cyanosis. NEUROLOGICAL: No focal neurological deficits. Moves all extremities spontaneously and on command. PSYCH: Normal mood, normal affect. SKIN: Warm, Dry, normal turgor, no rashes or lesions noted. Course - Re-evaluation Re-evalutation: 06/17/18 03:15 Patient is a 32-year-old female with a history of anxiety. Due to her tachycardia in triage, twelve-lead EKG will be ordered. I do not suspect patient is having a pulmonary emboli at this moment because she denies shortness of breath. Her tachycardia is most likely due to her anxiety. She is refusing labs at this time and states she will go to the [facility] for follow-up on her laboratory studies. 06/17/18 03:29 Patient's 12-lead EKG shows a normal rhythm. Her QTC is 433. Haldol has been ordered for her anxiety. 06/17/18 03:52 Patient states she feels better after taking Haldol. She states she will follow -up with her psychiatrist and update them on this hospital visit. - Vital Signs Vital signs: Temp Pulse Resp BP Pulse Ox 98.5 F 127 H 18 128/85 H 100 06/17/18 02:29 06/17/18 02:29 06/17/18 02:29 06/17/18 02:29 06/17/18 02:29 - EKG Interpretation by Sd EKG shows normal: Sinus rhythm Additional EKG results interpreted by dc: 06/17/18 04:02 Sinus rhythm: Heart rate 87; UT 156; QRS 98; QT 360; QTC 433 Discharge - Discharge Clinical Impression: Anxiety Condition: Stable Disposition: HOME, SELF-CARE Additional Instructions: You have been seen today for anxiety. Please follow-up with your psychiatrist in regards to this emergency department visit. You were given Haldol for your acute anxiety attack. If you feel you are having worsening anxiety, have feelings of wanting to hurt yourself or others, or are feeling severely depressed, please return to the emergency department for further evaluation. Please speak with your psychiatrist about long-acting Haldol, since Haldol has helped you during this emergency department visit.
[2018-06-17 04:15] VITALS: BP 132/88
--- NOTE | 2018-06-19 06:56 | EKG REPORT ---
SEVERITY:- NORMAL ECG - SINUS RHYTHM : Confirmed by: Lin Jorge 19-Jun-2018 06:55:20
== END 2018-06-17 04:15 | disposition home or self-care (01) ==
LOC: ER 02:23
DX: F41.9 Anxiety disorder, unspecified (principal); Z79.899 Other long term (current) drug therapy; R00.0 Tachycardia, unspecified; R63.4 Abnormal weight loss; I10 Essential (primary) hypertension; F17.200 Nicotine dependence, unspecified, uncomplicated; Z88.8 Allergy status to other drugs, medicaments and biological substances; Z88.5 Allergy status to narcotic agent
CPT/HCPCS: 93005; 93010; 99283

== ENCOUNTER 2018-07-01 09:33 | Emergency (ER) | payer SELFPAY ==
[2018-07-01] MEDS ORDERED: LOPERAMIDE HCL 2 MG CAPSULE PO ONE (10:00)
[2018-07-01] MEDS ORDERED: CLONAZEPAM 1 MG TABLET PO ONE (10:00)
--- NOTE | 2018-07-01 10:08 | ER Document Report ---
HPI - HPI Patient complains to provider of: Medication refill Pain Level: 0 Context: Patient is a 32-year-old female presenting to the emergency department requesting a medication refill. Patient states she takes 1 mg of Klonopin twice a day for anxiety. Patient has the medication bottle with her in the emergency room. Patient states the medication bottle says that the pharmacy gave her 54 pills but she thinks that she did not get that many pills. States that she does not have any more and is feeling anxious. Patient states she went to [facility] this morning to get her refills but they would not refill her medications. States she cannot get into her primary care provider because it is Tuesday and she wishes for the emergency room to refill her prescription. Patient is also complaining of 3 episodes of diarrhea today nonbloody. States she has had intermittent diarrhea for the last couple of days. Patient denies fever, URI symptoms, abdominal pain. Patient initially very calm vitals stable in no distress. Past medical history: Anxiety Medications: Clonazepam Allergies: None - REPRODUCTIVE Reproductive: DENIES: : Past Medical History - General Information source: Patient - Social History Smoking Status: Current Every Day Smoker Lives with: Family Family History: Arthritis, DM, Hyperlipidemia, Hypertension - Past Medical History Cardiac Medical History: Reports: Hx Hypertension Neurological Medical History: Reports: Hx Migraine Renal/ Medical History: Denies: Hx Peritoneal Dialysis Musculoskeletal Medical History: Reports Hx Musculoskeletal Trauma Psychiatric Medical History: Reports: Hx Anxiety, Hx Attention Deficit Hyperactivity Disorder, Hx Bipolar Disorder, Hx Depression, Hx Post Traumatic Stress Disorder Traumatic Medical History: Reports: Hx Fractures - nose Past Surgical History: Reports: Hx Abdominal Surgery - LAPROSCOPY, Hx Gynecologic Surgery - d&c, lap for endometriosis, Hx Nose Surgery - Reconstruction for fracture, Other - facial reconstruction - Immunizations Immunizations up to date: Yes Hx Diphtheria, Pertussis, Tetanus Vaccination: Yes - 2010 Vertical Provider Document - CONSTITUTIONAL Agree With Documented VS: Yes Notes: GENERAL: Alert, interacts well. No acute distress. HEAD: Normocephalic, atraumatic. EYES: Pupils equal, round, and reactive to light. Extraocular movements intact. ENT: Oral mucosa moist, tongue midline. NECK: Full range of motion. Supple. Trachea midline. LUNGS: Clear to auscultation bilaterally, no wheezes, rales, or rhonchi. No respiratory distress. HEART: Regular rate and rhythm. No murmur ABDOMEN: Soft, non-tender. Non-distended. Bowel sounds present in all 4 quadrants. EXTREMITIES: Moves all 4 extremities spontaneously. No edema, normal radial and dorsalis pedis pulses bilaterally. No cyanosis. BACK: no cervical, thoracic, lumbar midline tenderness. No saddle anesthesia, normal distal neurovascular exam. NEUROLOGICAL: Alert and oriented x3. Normal speech. cranial nerves II through XII grossly intact. PSYCH: Normal affect, normal mood. SKIN: Warm, dry, normal turgor. No rashes or lesions noted. - INFECTION CONTROL TRAVEL OUTSIDE OF THE [place] IN LAST 30 DAYS: No Course - Re-evaluation Re-evalutation: 07/01/18 10:01 Discussed this Pt with Emory one of the pharmacist at [facility] who stated the pt. was to their facility this morning and he told her he could not refill her medications until 07/06. Stated that the Pt. has come in multiple times to refill her medications early and that she usually ends up leaving very upset. Emory stated that she went to other pharmacies this morning to also try and get her medications refilled. Discussed this case with Dr. Dixon De La Cruz who stated that we should treat the pts anxiety in the ED but that I should not refill her clonazepam rx. Discussed this with the Pt. who then gets very upset and started pacing around the room. Pt. stated "so you just want me to come back here twice a day everyday until I can see my doctor?" Discussed that this is an emergency room and if she feels that she needs medical attention then she should come back anytime. - Vital Signs Vital signs: Temp Pulse Resp BP Pulse Ox 98.8 F 94 18 136/86 H 100 07/01/18 09:37 07/01/18 09:37 07/01/18 09:37 07/01/18 09:37 07/01/18 09:37 Discharge - Discharge Clinical Impression: Anxiety Diarrhea Qualifiers: Diarrhea type: unspecified type Qualified Code(s): R19.7 - Diarrhea, unspecified Condition: Stable Disposition: HOME, SELF-CARE Instructions: Anxiety ([facility]), Diarrhea, Nonspecific ([facility]) Additional Instructions: You have been seen and treated in the emergency room for anxiety and diarrhea. Your vital signs and exam show no signs of dehydration. You should take medications as prescribed. Please try to stay well-hydrated. Please return to the emergency room for any other concerning symptoms. Prescriptions: Loperamide HCl [Imodium 2 mg Capsule] 2 mg PO PRN PRN #21 cap PRN Reason: Diarrhea
[2018-07-01 10:38] VITALS: BP 132/78
== END 2018-07-01 10:34 | disposition home or self-care (01) ==
LOC: ER 09:33
DX: F41.9 Anxiety disorder, unspecified (principal); R19.7 Diarrhea, unspecified; F17.200 Nicotine dependence, unspecified, uncomplicated; I10 Essential (primary) hypertension
CPT/HCPCS: 99281

== ENCOUNTER 2018-07-01 18:45 | Emergency (ER) | payer SELFPAY ==
[2018-07-01 18:48] VITALS: BP 161/102
[2018-07-01] MEDS ORDERED: ACETAMINOPHEN 325 MG TABLET PO ONE (20:14)
[2018-07-01] MEDS ORDERED: HYDROXYZINE PAMOATE 50 MG CAPSULE PO ONE (20:15)
--- NOTE | 2018-07-01 20:24 | ER Document Report ---
HPI - HPI Patient complains to provider of: Medication refill Pain Level: 5 Context: Patient is a 32-year-old female that comes to the emergency department for chief complaint of running out of her Klonopin. She states that she filled her Klonopin last months but she has run out, she states that she went to the pharmacy because they "had a refill ready", and states the pharmacy refused to fill it until the 15 of this month. She states that she takes 1 mg of Klonopin twice a day and she needs some because she is anxious. She was seen here earlier today and received a dose of Klonopin. She denies any other daily medications, she denies any other complaints including nausea/vomiting/diarrhea , fever, muscle spasms, or any sick symptoms. She is not suicidal or homicidal. - REPRODUCTIVE Reproductive: DENIES: : Past Medical History - General Information source: Patient - Social History Smoking Status: Never Smoker Lives with: Family Family History: Arthritis, DM, Hyperlipidemia, Hypertension Patient has suicidal ideation: No Patient has homicidal ideation: No - Past Medical History Cardiac Medical History: Reports: Hx Hypertension Neurological Medical History: Reports: Hx Migraine Renal/ Medical History: Denies: Hx Peritoneal Dialysis Musculoskeletal Medical History: Reports Hx Musculoskeletal Trauma Psychiatric Medical History: Reports: Hx Anxiety, Hx Attention Deficit Hyperactivity Disorder, Hx Bipolar Disorder, Hx Depression, Hx Post Traumatic Stress Disorder Traumatic Medical History: Reports: Hx Fractures - nose Past Surgical History: Reports: Hx Abdominal Surgery - LAPROSCOPY, Hx Gynecologic Surgery - d&c, lap for endometriosis, Hx Nose Surgery - Reconstruction for fracture, Other - facial reconstruction - Immunizations Immunizations up to date: Yes Hx Diphtheria, Pertussis, Tetanus Vaccination: Yes - 2010 [facility] Provider Document - CONSTITUTIONAL General Appearance: WD/WN, No Apparent Distress, Thin - INFECTION CONTROL TRAVEL OUTSIDE OF THE [place] IN LAST 30 DAYS: No - HEENT HEENT: Atraumatic, Normocephalic - NECK Neck: Normal Inspection - RESPIRATORY Respiratory: Breath Sounds Normal, No Respiratory Distress - CARDIOVASCULAR Cardiovascular: Regular Rate, Regular Rhythm - GI/ABDOMEN Gastrointestinal: Abdomen Soft, Abdomen Non-Tender - BACK Back: Normal Inspection - MUSCULOSKELETAL/EXTREMETIES Musculoskeletal/Extremeties: MAEW, FROM, Non-Tender - NEURO Level of Consciousness: Awake, Alert - Alert, talkative, speaks in a rapid rate , however she makes good eye contact and does not behave in an inappropriate manner - DERM Integumentary: Warm, Dry, No Rash Course - Re-evaluation Re-evalutation: I did review note earlier where provider called the pharmacy and pharmacy was unable to provide patient with refill. I did review [place] drug reporting system and this shows that she had 60 pills of Klonopin filled by . Explained to patient that I was unable to give her a refill of the medication that she had run out of early. Patient requesting a different dosing so she could obtain new refill, explained that her primary provider would have to adjust her dosing of her chronic medication for anxiety and I was unable to do so here. Discussed with Dr. Ely. Provided patient with Vistaril here in for home for anxiety/insomnia, patient has follow-up within a few days for her refill and she is able to follow-up with her primary care on Tuesday. Discussed return precautions. Patient did state understanding. - Vital Signs Vital signs: Temp Pulse Resp BP Pulse Ox 98.6 F 91 16 161/102 H 100 07/01/18 18:47 07/01/18 18:47 07/01/18 18:47 07/01/18 18:47 07/01/18 18:47 Discharge - Discharge Clinical Impression: Anxiety Condition: Stable Disposition: HOME, SELF-CARE Additional Instructions: Unfortunately we are unable to fill your prescription for your chronic condition tonight. In order to obtain the prescription from the pharmacy you will have to receive a prescription adjustment from your provider for this medication or wait until this is available on 07/06/2018. Take Vistaril as prescribed to help with anxiety/insomnia. Return for any concerning symptoms including vomiting, shaking, etc. Prescriptions: Hydroxyzine Pamoate [Vistaril 25 mg Capsule] 1 - 2 cap PO Q6 PRN #30 capsule PRN Reason: Referrals: LOCALMD,NO [Primary Care Provider] - Follow up as needed
== END 2018-07-01 21:04 | disposition home or self-care (01) ==
LOC: ER 18:45
DX: F41.9 Anxiety disorder, unspecified (principal); I10 Essential (primary) hypertension
CPT/HCPCS: 99281

== ENCOUNTER 2018-07-02 08:15 | Emergency (ER) | payer SELFPAY ==
--- NOTE | 2018-07-02 09:08 | ER Document Report ---
ED General - General Chief Complaint: Medication Refill Stated Complaint: POSSIBLE ANXIETY Time Seen by Provider: 07/02/18 08:24 Mode of Arrival: Ambulatory Information source: Patient Notes: Patient is a 32-year-old female who returns to the emergency department requesting Klonopin. She states that she attempted the Vistaril that she was given got the prescription but is not doing any good. She is back today requesting more Klonopin. She is telling me that she has cannot breathe and her blood pressure is going through the roof. TRAVEL OUTSIDE OF THE [place] IN LAST 30 DAYS: No - HPI Onset: Yesterday - Right Onset/Duration: Worse Quality of pain: Achy Severity: Moderate Pain Level: 3 Context: Anxiety Associated symptoms: Body/muscle aches, Diarrhea, Shortness of breath Exacerbated by: Other - Out of her medications Relieved by: Other - Supplementation of her medication Similar symptoms previously: Yes Recently seen / treated by doctor: Yes - Related Data Allergies/Adverse Reactions: ketorolac tromethamine [From Toradol] Allergy (Verified 07/02/18 08:18) meperidine HCl [From Demerol] Allergy (Verified 07/02/18 08:18) metoclopramide HCl [From Reglan] Allergy (Verified 07/02/18 08:18) morphine [Morphine] Allergy (Verified 07/02/18 08:18) nalbuphine [From Nubain] Allergy (Verified 07/02/18 08:18) Hives tramadol [Tramadol] Allergy (Verified 07/02/18 08:18) Hives ondansetron HCl [From Zofran] Adverse Reaction (Verified 07/02/18 08:18) VOMITING Past Medical History - General Information source: Patient - Social History Smoking Status: Unknown if Ever Smoked Family History: Reviewed & Not Pertinent, Arthritis, DM, Hyperlipidemia, Hypertension Patient has suicidal ideation: No Patient has homicidal ideation: No - Past Medical History Cardiac Medical History: Reports: Hx Hypertension Neurological Medical History: Reports: Hx Migraine Renal/ Medical History: Denies: Hx Peritoneal Dialysis Musculoskeletal Medical History: Reports Hx Musculoskeletal Trauma Psychiatric Medical History: Reports: Hx Anxiety, Hx Attention Deficit Hyperactivity Disorder, Hx Bipolar Disorder, Hx Depression, Hx Post Traumatic Stress Disorder Traumatic Medical History: Reports: Hx Fractures - nose Past Surgical History: Reports: Hx Abdominal Surgery - LAPROSCOPY, Hx Gynecologic Surgery - d&c, lap for endometriosis, Hx Nose Surgery - Reconstruction for fracture, Other - facial reconstruction - Immunizations Immunizations up to date: Yes Hx Diphtheria, Pertussis, Tetanus Vaccination: Yes - 2010 Review of Systems - Review of Systems Cardiovascular: Palpitations, Heart racing Respiratory: Short of breath Gastrointestinal: Diarrhea Musculoskeletal: Muscle pain -: Yes All other systems reviewed and negative Physical Exam - Vital signs Vitals: Temp Pulse Resp BP Pulse Ox 98.1 F 93 24 H 164/110 H 100 07/02/18 08:18 07/02/18 08:18 07/02/18 08:18 07/02/18 08:18 07/02/18 08:18 Interpretation: Hypertensive - Notes Notes: PHYSICAL EXAMINATION: GENERAL; well-nourished well-developed 32-year-old female who is very anxious, angry, upset physical exam this time is limited secondary to patient's anxiety level with HEAD: Atraumatic, normocephalic. EYES: Pupils equal round and reactive to light ENT Moist mucous membranes, lips are not chapped patient speaking without problem. NECK: Normal range of motion, LUNGS: No apparent distress able to vocalize her agitation without problem. HEART: Regular rate and rhythm, from monitor ABDOMEN: Not examined secondary to patient being upset Female : deferred Musculoskeletal: Normal range of motion, patient using all extremities without any difficulties. Full gestures with arm ambulation without a problem. NEUROLOGICAL: Normal speech, normal gait. Normal sensory, motor exams PSYCH: Anxiety physical exam was basically impossible to perform because of patient's high agitated state. Patient would attempt to hyperventilate for a while and then get tired and it was stop. Then she would get anxious again when you were looking she would hyperventilate when he looked aware walked out and came back she was not hyperventilating. SKIN: Warm, Dry, patient is definitely not diaphoretic. Course - Re-evaluation Re-evalutation: 07/02/18 09:15 As stated this is patient's third visit to the emergency room and less than 24 hours. She is highly agitated and upset that we will not refill her Klonopin. Last evening she was given 30 Vistaril tablets to help with her anxiety level I do not know if she filled the prescription or not but she states is not working for her. She is having 54 pills help for her at her pharmacy because she is over taking her medications and she cannot pick them up until the 15th. Patient is stating that she is short of breath and having diarrhea because of the anxiety levels. She also complaining that her blood pressure is in excess and she is not being treated for it. I have offered patient Benadryl and I have offered her clonidine for her blood pressure and she refuses. She is only gargles set for getting Klonopin. It was documented yesterday at that the provider talked to the pharmacist at her pharmacy he had told her that she had been in there several times already and left very upset and that she had been to other pharmacies in the area as well and left them is very upset. I have pull patient up on the [facility] where database and the last refill of medication was on 06/08/2018 where she had 54 pills and on 06/07/2018 she had 6 pills so she does not appear to be a chronic drug seeker this is 1 of those events were we are not able to continue a daily dose of her in the clinic and Klonopin here. She will not understand why we cannot continue to do this. I have discussed the case with Dr. Lisa De La Cruz who also feels we should not refill the medications again. At this time I am been informed patient that I have offered her the most like in she can continue with the Vistaril until she can get her medications on the 15 because we will not fill or give another Klonopin out of the emergency room. 07/02/18 09:23 It appears the patient's provider who is writing for the medication is a [facility] in [place]. I pulled patient's sheet up from the [facility] as stated that is where I picker / packer the possibility that B her provider. 07/02/18 09:43 I gone back and told patient there is nothing else we are going to do for her and that it was time for her to leave she then back pedal and requested to get treated for the blood pressure repeat blood pressure is 154/110 so I am given patient 1 clonidine p.o. here and 50 mg of Benadryl p.o. and am discharging her with that. Patient continues to work herself up and will never really get the blood pressure under control regardless at this time. 150/100 is not critical at this time. And I had a long conversation with patient told her that she is getting anxious on top of her anxiety. She states she does have the Vistaril at home so she can continue taking that as prescribed. 07/02/18 17:26 I had intended to make come into this earlier before closing chart that patient brought with her either her or boyfriend I am not sure which. He sat in the corner of the exam room never making eye contact with either myself or the nurse and it kind of talking away from the patient when she was acting her worse. He never once opened his mouth he never once made a gesture and [place] in the corner. It is felt that this was something that needed to be mentioned. - Vital Signs Vital signs: Temp Pulse Resp BP Pulse Ox 98.1 F 81 16 150/103 H 100 07/02/18 08:18 07/02/18 09:36 07/02/18 09:36 07/02/18 09:36 07/02/18 09:36 Discharge - Discharge Clinical Impression: Anxiety, Drug-seeking behavior, Medication refill Condition: Stable Disposition: HOME, SELF-CARE Instructions: Anxiety ([facility]) Additional Instructions: As I have informed you I cannot give you Klonopin and I cannot refill your medications. You have been treated appropriately in the emergency room with the hydroxyzine and that is most we can do at this time. Forms: Elevated Blood Pressure
[2018-07-02] MEDS ORDERED: CLONIDINE HCL 0.1 MG TABLET PO ONE (09:41)
[2018-07-02] MEDS ORDERED: DIPHENHYDRAMINE HCL 25 MG CAPSULE PO ONE (09:42)
[2018-07-02 09:46] VITALS: BP 150/103
== END 2018-07-02 09:52 | disposition home or self-care (01) ==
LOC: ER 08:15
DX: Z76.0 Encounter for issue of repeat prescription (principal); F41.9 Anxiety disorder, unspecified; Z91.14 Patient's other noncompliance with medication regimen; Z76.5 Malingerer [conscious simulation]; R19.7 Diarrhea, unspecified; I10 Essential (primary) hypertension; R00.2 Palpitations; R06.02 Shortness of breath; M79.10 Myalgia, unspecified site; Z88.8 Allergy status to other drugs, medicaments and biological substances; Z88.5 Allergy status to narcotic agent
CPT/HCPCS: 99282

== ENCOUNTER 2018-07-03 04:04 | Emergency (ER) | payer SELFPAY ==
[2018-07-03] MEDS ORDERED: BUSPIRONE HCL 10 MG TABLET PO ONE (07:03)
--- NOTE | 2018-07-03 07:11 | ER Document Report ---
ED General - General Chief Complaint: Anxiety Stated Complaint: ANXIETY Time Seen by Provider: 07/03/18 06:36 TRAVEL OUTSIDE OF THE [place] IN LAST 30 DAYS: No - HPI Patient complains to provider of: Anxiety Notes: Patient coming in today for anxiety. Patient states she is recently ran out of her medication clonazepam. Patient also is concerned about her elevation of her blood pressure. Patient states she has been on blood pressure medication in the past however at this time is unaware of the medication. Patient denies any changes in her social status. Patient prior to my entrance into examination room has been seen wandering around the ER multiple times coming into the in the charge nurses desk asking for various things. Patient does not look anxious and patient remained calm during my interview process. Patient states that she is ran out of her medication recently received a prescription for 6 tablets and a prescription for 54 on 06/07/2018. Patient states that she is not due to see her provider until the 16th patient otherwise denies any nausea vomiting fevers chills diarrhea. Patient is in no obvious distress upon my evaluation - Related Data Allergies/Adverse Reactions: ketorolac tromethamine [From Toradol] Allergy (Verified 07/02/18 08:18) meperidine HCl [From Demerol] Allergy (Verified 07/02/18 08:18) metoclopramide HCl [From Reglan] Allergy (Verified 07/02/18 08:18) morphine [Morphine] Allergy (Verified 07/02/18 08:18) nalbuphine [From Nubain] Allergy (Verified 07/02/18 08:18) Hives tramadol [Tramadol] Allergy (Verified 07/02/18 08:18) Hives ondansetron HCl [From Zofran] Adverse Reaction (Verified 07/02/18 08:18) VOMITING Past Medical History - Social History Smoking Status: Current Every Day Smoker Family History: Reviewed & Not Pertinent, Arthritis, DM, Hyperlipidemia, Hypertension Patient has suicidal ideation: No Patient has homicidal ideation: No - Past Medical History Cardiac Medical History: Reports: Hx Hypertension Neurological Medical History: Reports: Hx Migraine Renal/ Medical History: Denies: Hx Peritoneal Dialysis Musculoskeletal Medical History: Reports Hx Musculoskeletal Trauma Psychiatric Medical History: Reports: Hx Anxiety, Hx Attention Deficit Hyperactivity Disorder, Hx Bipolar Disorder, Hx Depression, Hx Post Traumatic Stress Disorder Traumatic Medical History: Reports: Hx Fractures - nose Past Surgical History: Reports: Hx Abdominal Surgery - LAPROSCOPY, Hx Gynecologic Surgery - d&c, lap for endometriosis, Hx Nose Surgery - Reconstruction for fracture, Other - facial reconstruction - Immunizations Immunizations up to date: Yes Hx Diphtheria, Pertussis, Tetanus Vaccination: Yes - 2010 Review of Systems - Review of Systems Constitutional: No symptoms reported EENT: No symptoms reported Cardiovascular: No symptoms reported Respiratory: No symptoms reported Gastrointestinal: No symptoms reported Genitourinary: No symptoms reported Female Genitourinary: No symptoms reported Musculoskeletal: No symptoms reported Skin: No symptoms reported Hematologic/Lymphatic: No symptoms reported Neurological/Psychological: Anxiety -: Yes All other systems reviewed and negative Physical Exam - Vital signs Vitals: Temp Pulse Resp BP Pulse Ox 98.7 F 77 17 151/111 H 100 07/03/18 04:13 07/03/18 04:13 07/03/18 04:13 07/03/18 04:13 07/03/18 04:13 Interpretation: Normal - General General appearance: Appears well, Alert - HEENT Head: Normocephalic, Atraumatic Eyes: Normal Pupils: PERRL - Respiratory Respiratory status: No respiratory distress Chest status: Nontender Breath sounds: Normal Chest palpation: Normal - Cardiovascular Rhythm: Regular Heart sounds: Normal auscultation Murmur: No - Abdominal Inspection: Normal Distension: No distension Bowel sounds: Normal Tenderness: Nontender Organomegaly: No organomegaly - Back Back: Normal, Nontender - Extremities General upper extremity: Normal inspection, Nontender, Normal color, Normal ROM , Normal temperature General lower extremity: Normal inspection, Nontender, Normal color, Normal ROM , Normal temperature, Normal weight bearing. No: Yovani's sign - Neurological Neuro grossly intact: Yes Cognition: Normal Orientation: AAOx4 [place] Coma Scale Eye Opening: Spontaneous Ron Coma Scale Verbal: Oriented [place] Coma Scale Motor: Obeys Commands [place] Coma Scale Total: 15 Speech: Normal Motor strength normal: LUE, RUE, LLE, RLE Sensory: Normal - Psychological Associated symptoms: Normal affect, Normal mood - Skin Skin Temperature: Warm Skin Moisture: Dry Skin Color: Normal Course - Re-evaluation Re-evalutation: 07/03/18 14:13 Patient shows no signs of anxiety upon my evaluation. Patient is requesting medication for anxiety explained to the patient has time we will not refill her lorazepam but this will need to come from her primary care physician patient states that she does get support did recommend that she call their office today. Patient otherwise was given a dose of BuSpar. Patient is also very concerned about her blood pressure stating that it was elevated patient denies any headaches chest pain dizziness lightheadedness. Patient does not look to be symptomatic at this time. Patient states initially that she is unaware of what medication that she is normally on however recants this and states that she normally takes clonidine once a day. Patient states she has not been on clonidine for quite some time more likely the reason for elevated blood pressure. I explained to the patient this is a primary care issues at this time she is not symptomatic will recommend follow-up with her primary care physician for further management of her medications. Patient very insistent on getting on a medication for blood pressure review of the recent records shows prescriptions for hydrochlorothiazide lisinopril will start patient on hydrochlorothiazide 12.5 at her urging. 07/03/18 14:15 - Vital Signs Vital signs: Temp Pulse Resp BP Pulse Ox 98.7 F 88 15 150/111 H 100 07/03/18 04:13 07/03/18 07:30 07/03/18 07:30 07/03/18 07:30 07/03/18 07:30 Discharge - Discharge Clinical Impression: Anxiety Condition: Good Disposition: HOME, SELF-CARE Instructions: Anxiety ([facility]) Additional Instructions: I highly recommend following up with your primary care physician or a psychiatric provider for further medication refills. Return to the ER symptoms worsen. He may use the BuSpar as prescribed for anxiety relief. Return to the ER for any emergent condition. Prescriptions: Buspirone HCl [Buspar 5 mg Tablet] 1 tab PO DAILY #7 tab Forms: Elevated Blood Pressure
[2018-07-03 07:31] VITALS: BP 150/111
== END 2018-07-03 07:33 | disposition home or self-care (01) ==
LOC: ER 04:04
DX: F41.9 Anxiety disorder, unspecified (principal); F17.200 Nicotine dependence, unspecified, uncomplicated; I10 Essential (primary) hypertension; Z88.6 Allergy status to analgesic agent
CPT/HCPCS: 99283

== ENCOUNTER 2018-07-03 19:57 | Emergency (ER) | payer SELFPAY ==
[2018-07-03] MEDS ORDERED: METOPROLOL TARTRATE 50 MG TABLET PO ONE (20:25)
--- NOTE | 2018-07-03 20:27 | ER Document Report ---
ED Medical Screen (RME) - General Chief Complaint: "I have really high blood pressure." Lakeisha Stated Complaint: WEAKNESS Time Seen by Provider: 07/03/18 20:14 Notes: 32-year-old female patient comes emerged from complaining about her blood pressure being high, feeling shaky and anxious. Wanting something for her nerves and anxiety. She also claims of weakness on the right side and pain in her back. She has been here 5 times in 2 days because she ran out of her clonazepam early. She is supposed to be on medicine for her blood pressure. She states she used to be on clonidine but ran out a month ago. Reviewing some records shows that at some point she had been on lisinopril and hydrochlorothiazide. She was given a dose of BuSpar and a prescription for BuSpar when she was seen in the emergency room earlier today. At this time she is a little tachycardic and her blood pressure is elevated. I will give her a dose of metoprolol to see if that lowers her pressure and her heart rate and improve some of her anxiety symptoms. I have greeted and performed a rapid initial assessment of this patient. A comprehensive ED assessment and evaluation of the patient, analysis of test results and completion of the medical decision making process will be conducted by additional ED providers. She did come to the door of the office with my workspace to tell me that she is also hurting in her head. TRAVEL OUTSIDE OF THE [place] IN LAST 30 DAYS: No - Related Data Allergies/Adverse Reactions: ketorolac tromethamine [From Toradol] Allergy (Verified 07/02/18 08:18) meperidine HCl [From Demerol] Allergy (Verified 07/02/18 08:18) metoclopramide HCl [From Reglan] Allergy (Verified 07/02/18 08:18) morphine [Morphine] Allergy (Verified 07/02/18 08:18) nalbuphine [From Nubain] Allergy (Verified 07/02/18 08:18) Hives tramadol [Tramadol] Allergy (Verified 07/02/18 08:18) Hives ondansetron HCl [From Zofran] Adverse Reaction (Verified 07/02/18 08:18) VOMITING Past Medical History - Social History Chew tobacco use (# tins/day): No Frequency of alcohol use: None Drug Abuse: None Family history: None - Past Medical History Cardiac Medical History: Reports: Hx Hypertension Neurological Medical History: Reports: Hx Migraine Renal/ Medical History: Denies: Hx Peritoneal Dialysis Musculoskeltal Medical History: Reports Hx Musculoskeletal Trauma Psychiatric Medical History: Reports: Hx Anxiety, Hx Attention Deficit Hyperactivity Disorder, Hx Bipolar Disorder, Hx Depression, Hx Post Traumatic Stress Disorder Traumatic Medical History: Reports: Hx Fractures - nose Past Surgical History: Reports: Hx Abdominal Surgery - LAPROSCOPY, Hx Gynecologic Surgery - d&c, lap for endometriosis, Hx Nose Surgery - Reconstruction for fracture, Other - facial reconstruction - Immunizations Immunizations up to date: Yes Hx Diphtheria, Pertussis, Tetanus Vaccination: Yes - 2010 Physical Exam - Vital signs Vitals: Temp Pulse Resp BP Pulse Ox 97.7 F 113 H 20 159/103 H 100 07/03/18 20:03 07/03/18 20:03 07/03/18 20:03 07/03/18 20:03 07/03/18 20:03 Course - Vital Signs Vital signs: Temp Pulse Resp BP Pulse Ox 97.7 F 113 H 20 159/103 H 100 07/03/18 20:03 07/03/18 20:03 07/03/18 20:03 07/03/18 20:03 07/03/18 20:03
[2018-07-03] MEDS ORDERED: HYDROCHLOROTHIAZIDE 12.5 MG TABLET PO ONE (22:24)
[2018-07-03] MEDS ORDERED: CLONAZEPAM 1 MG TABLET PO ONE (22:24)
--- NOTE | 2018-07-03 22:29 | ER Document Report ---
ED General - General Chief Complaint: "I have really high blood pressure." Lakeisha Stated Complaint: WEAKNESS Time Seen by Provider: 07/03/18 20:14 Notes: Patient is a 32-year-old female who is now been here every day for the last several days. She ran out of her Klonopin. She is not allowed to get another prescription from her pharmacy until the . She therefore is come every day requesting a dose of something for her anxiety. Also her blood pressure is high. She says that she usually takes some medication for her blood pressure. She does she takes clonidine. She is out of this as well. She was prescribed BuSpar just by Dr. Bernal. She said initially helped but then her anxiety came back and now she feels "twitchy". She has feels very anxious. She denies any fevers or infections. She denies any depression. She has no other complaints at this time. TRAVEL OUTSIDE OF THE [place] IN LAST 30 DAYS: No - Related Data Allergies/Adverse Reactions: ketorolac tromethamine [From Toradol] Allergy (Verified 07/02/18 08:18) meperidine HCl [From Demerol] Allergy (Verified 07/02/18 08:18) metoclopramide HCl [From Reglan] Allergy (Verified 07/02/18 08:18) morphine [Morphine] Allergy (Verified 07/02/18 08:18) nalbuphine [From Nubain] Allergy (Verified 07/02/18 08:18) Hives tramadol [Tramadol] Allergy (Verified 07/02/18 08:18) Hives ondansetron HCl [From Zofran] Adverse Reaction (Verified 07/02/18 08:18) VOMITING Past Medical History - Social History Smoking Status: Current Every Day Smoker Chew tobacco use (# tins/day): No Frequency of alcohol use: None Drug Abuse: None Family History: Reviewed & Not Pertinent, Arthritis, DM, Hyperlipidemia, Hypertension Patient has suicidal ideation: No Patient has homicidal ideation: No - Past Medical History Cardiac Medical History: Reports: Hx Hypertension Neurological Medical History: Reports: Hx Migraine Renal/ Medical History: Denies: Hx Peritoneal Dialysis Musculoskeletal Medical History: Reports Hx Musculoskeletal Trauma Psychiatric Medical History: Reports: Hx Anxiety, Hx Attention Deficit Hyperactivity Disorder, Hx Bipolar Disorder, Hx Depression, Hx Post Traumatic Stress Disorder Traumatic Medical History: Reports: Hx Fractures - nose Past Surgical History: Reports: Hx Abdominal Surgery - LAPROSCOPY, Hx Gynecologic Surgery - d&c, lap for endometriosis, Hx Nose Surgery - Reconstruction for fracture, Other - facial reconstruction - Immunizations Immunizations up to date: Yes Hx Diphtheria, Pertussis, Tetanus Vaccination: Yes - 2010 Review of Systems - Review of Systems Notes: My Normal Review Basic REVIEW OF SYSTEMS: CONSTITUTIONAL : Denies fever, chills, or sweats. Denies recent illness. EENT: Denies eye, ear, throat, or mouth pain or symptoms. Denies nasal or sinus congestion. CARDIOVASCULAR: Denies chest pain. RESPIRATORY: Denies cough, cold, or chest congestion. Denies shortness of breath, difficulty breathing, or wheezing. GASTROINTESTINAL: Denies abdominal pain. Denies nausea, vomiting, or diarrhea. MUSCULOSKELETAL: Denies neck or back pain or joint pain or swelling. NEUROLOGICAL: Denies altered mental status or loss of consciousness. Mild headache. Denies weakness or paralysis or loss of use of either side. Denies problems with gait or speech. Denies sensory or motor loss. PSYCHIATRIC: Anxiety ALL OTHER SYSTEMS REVIEWED AND NEGATIVE. Physical Exam - Vital signs Vitals: Temp Pulse Resp BP Pulse Ox 97.7 F 113 H 20 159/103 H 100 07/03/18 20:03 07/03/18 20:03 07/03/18 20:03 07/03/18 20:03 07/03/18 20:03 - Notes Notes: General Appearance: Well nourished, alert, cooperative, no acute distress, no obvious discomfort. Vitals: reviewed, See vital signs table. Head: no swelling or tenderness to the head Eyes: PERRL, EOMI, Conjuctiva clear Mouth: No decreasd moisture Lungs: No wheezing, No rales, No rhonci, No accessory muscle use, good air exchange bilaterally. Heart: Normal rate, Regular rythm, No murmur, no rub Extremities: strength 5/5 in all extremities, good pulses in all extremities, no swelling or tenderness in the extremities, no edema. Skin: warm, dry, appropriate color, no rash Neuro: speech clear, oriented x 3, normal affect, responds appropriately to questions. Cranial nerves II through XII are intact. Distal sensation intact. Patient moves all extremities without difficulty. Patient has no tremor but she says that she feels "twitchy. Again no obvious tremor on exam. No sweating or diaphoresis on exam. Patient has good range of motion without any discoordination. Course - Re-evaluation Re-evalutation: 07/04/18 06:43 Patient will be discharged home. She is encouraged to return to ER if she has any seizure-like activity or tremors. She also encouraged to return to ER if she has vomiting. My main concern is possibility of benzo withdrawal. Currently I do not not think patient is having benzo withdrawal however the fact that she is to infiltrate which he could just be anxiety but could also be that she is getting near the point where she could eventually have benzo withdrawal. I therefore will write for just 4 pills of Klonopin. I informed her to take the once a day. This is to prevent withdrawal she follows up with her doctor and receives her meds on the . Also prescribed her hydrochlorothiazide to help control her blood pressure. Patient is agreeable plan and will be discharged home. Dictation of this chart was performed using voice recognition software; therefore, there may be some unintended grammatical errors. 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 Please call your doctors office in the morning before you feel your prescription to make sure filling this prescription will not ruin or affect your prescribing privileges with your doctor. Please return to the ER if you have intractable vomiting, perfuse sweating, or feel that you are worsening in any way. Prescriptions: Clonazepam [Klonopin 1 mg Tablet] 1 mg PO DAILY #4 tablet Hydrochlorothiazide [Hydrodiuril 12.5 mg Tablet] 12.5 mg PO QAM #30 capsule
[2018-07-03 22:39] VITALS: BP 141/99
== END 2018-07-03 22:40 | disposition home or self-care (01) ==
LOC: ER 19:57
DX: F41.9 Anxiety disorder, unspecified (principal); F19.20 Other psychoactive substance dependence, uncomplicated; I10 Essential (primary) hypertension; F17.200 Nicotine dependence, unspecified, uncomplicated; Z88.6 Allergy status to analgesic agent
CPT/HCPCS: 99284

== ENCOUNTER 2018-07-05 13:11 | Emergency (ER) | payer SELFPAY ==
[2018-07-05 15:34] LABS: BLOOD UREA NITROGEN 12 mg/dL (7-20); CALCIUM 10.1 mg/dL (8.4-10.2); GLUCOSE 109 mg/dL (75-110); POTASSIUM 4.1 mmol/L (3.6-5.0)
--- NOTE | 2018-07-05 15:34 | ER Document Report ---
ED General - General Chief Complaint: Anxiety Stated Complaint: BLOODPRESSURE PROBLEM Time Seen by Provider: 07/05/18 14:11 Mode of Arrival: Ambulatory Information source: Patient Notes: Chief complaint: Feeling dehydrated History of complain:( obtained from----patient) 32 years old female with a history of anxiety disorder requesting chronic pain initially. Though she filled 54 tablets within the last 2 weeks. Also complaining she is feels dehydrated and weak. She has multiple ED visits. No fever chills or other constitutional symptoms. She was turning around the story to the maximum for me to prescribe chronic pain. Onset: As above Duration: Several months Severity: Unknown Quality: Unknown Context: Unknown Exacerbating factor and relieving factors: Unknown REVIEW OF SYSTEMS: CONSTITUTIONAL : Denies fever, chills, or sweats. Denies recent illness. EENT: Denies eye, ear, throat, or mouth pain or symptoms. Denies nasal or sinus congestion or discharge. Denies throat, tongue, or mouth swelling or difficulty swallowing. CARDIOVASCULAR: Denies chest pain. Denies palpitations or racing or irregular heart beat. Denies ankle edema. RESPIRATORY: Denies cough, cold, or chest congestion. Denies shortness of breath, difficulty breathing, or wheezing. GASTROINTESTINAL: Denies distention. Denies nausea, vomiting, or diarrhea. Denies blood in vomitus, stools, or per rectum. Denies black, tarry stools. Denies constipation. GENITOURINARY: Denies difficulty urinating, painful urination, burning, frequency, blood in urine, or discharge. FEMALE GENITOURINARY: Denies vaginal bleeding, heavy or abnormal periods, irregular periods. Denies vaginal discharge or odor. MUSCULOSKELETAL: Denies back or neck pain or stiffness. Denies joint pain or swelling. SKIN: Denies rash, lesions or sores. HEMATOLOGIC : Denies easy bruising or bleeding. LYMPHATIC: Denies swollen, enlarged glands. NEUROLOGICAL: Denies confusion or altered mental status. Denies passing out or loss of consciousness. Denies dizziness or lightheadedness. Denies headache. Denies weakness or paralysis or loss of use of either side. Denies problems with gait or speech. Denies sensory loss, numbness, or tingling. Denies seizures. PSYCHIATRIC: Denies anxiety or stress. Denies depression, suicidal ideation, or homicidal ideation. ALL OTHER SYSTEMS REVIEWED AND NEGATIVE. PHYSICAL EXAMINATION: GENERAL: Well-appearing, well-nourished and in no acute distress. HEAD: Atraumatic, normocephalic. EYES: Pupils equal round and reactive to light, extraocular movements intact, conjunctiva are normal. ENT: Nares patent, oropharynx clear without exudates. Moist mucous membranes. NECK: Normal range of motion, supple without lymphadenopathy LUNGS: Breath sounds clear to auscultation bilaterally and equal. No wheezes rales or rhonchi. HEART: Regular rate and rhythm without murmurs ABDOMEN: Soft, nontender, nondistended abdomen. No guarding, no rebound. No masses appreciated. Examination of genitals-deferred Musculoskeletal: Normal range of motion, no pitting or edema. No cyanosis. NEUROLOGICAL: Cranial nerves grossly intact. Normal speech, normal gait. Normal sensory, motor exams PSYCH: Normal mood, normal affect. SKIN: Warm, Dry, normal turgor, no rashes or lesions noted. Dictation was performed using [employer] voice recognition software TRAVEL OUTSIDE OF THE [place] IN LAST 30 DAYS: No - HPI Notes: Dictated - Related Data Allergies/Adverse Reactions: ketorolac tromethamine [From Toradol] Allergy (Verified 07/05/18 13:20) meperidine HCl [From Demerol] Allergy (Verified 07/05/18 13:20) metoclopramide HCl [From Reglan] Allergy (Verified 07/05/18 13:20) morphine [Morphine] Allergy (Verified 07/05/18 13:20) nalbuphine [From Nubain] Allergy (Verified 07/05/18 13:20) Hives tramadol [Tramadol] Allergy (Verified 07/05/18 13:20) Hives ondansetron HCl [From Zofran] Adverse Reaction (Verified 07/05/18 13:20) VOMITING Past Medical History - Social History Smoking Status: Current Every Day Smoker Chew tobacco use (# tins/day): No Frequency of alcohol use: None Drug Abuse: None Lives with: Family Family History: Reviewed & Not Pertinent, Arthritis, DM, Hyperlipidemia, Hypertension Patient has suicidal ideation: No Patient has homicidal ideation: No - Past Medical History Cardiac Medical History: Reports: Hx Hypertension Neurological Medical History: Reports: Hx Migraine Renal/ Medical History: Denies: Hx Peritoneal Dialysis Musculoskeletal Medical History: Reports Hx Musculoskeletal Trauma Psychiatric Medical History: Reports: Hx Anxiety, Hx Attention Deficit Hyperactivity Disorder, Hx Bipolar Disorder, Hx Depression, Hx Post Traumatic Stress Disorder Traumatic Medical History: Reports: Hx Fractures - nose Past Surgical History: Reports: Hx Abdominal Surgery - LAPROSCOPY, Hx Gynecologic Surgery - d&c, lap for endometriosis, Hx Nose Surgery - Reconstruction for fracture, Other - facial reconstruction - Immunizations Immunizations up to date: Yes Hx Diphtheria, Pertussis, Tetanus Vaccination: Yes - 2010 Review of Systems - Review of Systems Notes: Dictated Physical Exam - Vital signs Vitals: Temp Pulse Resp BP Pulse Ox 98.4 F 90 17 138/98 H 100 07/05/18 13:22 07/05/18 13:22 07/05/18 13:22 07/05/18 13:22 07/05/18 13:22 - Notes Notes: Dictated Course - Vital Signs Vital signs: Temp Pulse Resp BP Pulse Ox 98.4 F 90 17 138/98 H 100 07/05/18 13:22 07/05/18 13:22 07/05/18 13:22 07/05/18 13:22 07/05/18 13:22 - Laboratory Result Diagrams: 07/05/18 15:00 Laboratory results interpreted by me: 07/05/18 15:00 Sodium 145.3 H Chloride 108 H Carbon Dioxide 17 L Anion Gap 20 H Discharge - Discharge Clinical Impression: Benzodiazepine dependence, Anxiety, Mild dehydration Condition: Fair Disposition: HOME, SELF-CARE Instructions: Anxiety (OM)
[2018-07-05 16:18] LABS: CARBON DIOXIDE 17 mmol/L (22-30); CHLORIDE 108 mmol/L (98-107); SODIUM 145.3 mmol/L (137-145)
[2018-07-05 16:19] LABS: ANION GAP 20 (5-19)
[2018-07-05 16:34] VITALS: BP 146/100
== END 2018-07-05 16:35 | disposition home or self-care (01) ==
LOC: ER 13:11
DX: F41.9 Anxiety disorder, unspecified (principal); F13.20 Sedative, hypnotic or anxiolytic dependence, uncomplicated; E86.0 Dehydration; R53.1 Weakness; I10 Essential (primary) hypertension; F17.200 Nicotine dependence, unspecified, uncomplicated; Z88.8 Allergy status to other drugs, medicaments and biological substances; Z88.5 Allergy status to narcotic agent
CPT/HCPCS: 36415; 80048; 99283

== ENCOUNTER 2018-07-26 19:58 | Emergency (ER) | payer SELFPAY ==
[2018-07-26] MEDS ORDERED: NORMAL SALINE 1000 ML 1,000 ML IV ONE (22:18)
[2018-07-26] MEDS ORDERED: PROMETHAZINE HCL INJ 25 MG/1 ML VIAL IM ONE ×2 (22:19→23:57)
[2018-07-26] MEDS ORDERED: DICYCLOMINE HCL INJ 20 MG/2 ML AMPULE IM ONE (22:19)
[2018-07-26 22:54] LABS: ABSOLUTE LYMPHOCYTES (AUTO) 0.8 10^3/uL (0.5-4.7); ABSOLUTE MONOCYTES (AUTO) 0.4 10^3/uL (0.1-1.4); ABSOLUTE NEUT (AUTO) 7.7 10^3/uL (1.7-8.2); BASOPHILS % (AUTO) 0.2 % (0-2); EOSINOPHILS % (AUTO) 0.1 % (0-6); HEMATOCRIT 34.2 % (36.0-47.0); HEMOGLOBIN 11.3 g/dL (12.0-15.5); LYMPHOCYTES % (AUTO) 8.5 % (13-45); MEAN CORPUSCULAR HGB CONC 33.2 g/dL (32.0-36.0); MEAN CORPUSCULAR VOLUME 84 fl (80-97); MONOCYTES % (AUTO) 4.3 % (3-13); PLATELET COUNT 143 10^3/uL (150-450); RED BLOOD COUNT 4.05 10^6/uL (3.72-5.28); SEGMENTED NEUTROPHILS % (AUTO) 86.9 % (42-78); TOTAL CELLS COUNTED % (AUTO) 100 %; WHITE BLOOD COUNT 8.9 10^3/uL (4.0-10.5)
[2018-07-26 23:09] LABS: ALANINE AMINOTRANSFERASE 18 U/L (9-52); ALBUMIN 4.4 g/dL (3.5-5.0); ALKALINE PHOSPHATASE 48 U/L (38-126); ANION GAP 12 (5-19); ASPARTATE AMINO TRANSFERASE 16 U/L (14-36); BILIRUBIN,DIRECT 0.2 mg/dL (0.0-0.4); BILIRUBIN,TOTAL 0.5 mg/dL (0.2-1.3); BLOOD UREA NITROGEN 14 mg/dL (7-20); CALCIUM 9.4 mg/dL (8.4-10.2); CARBON DIOXIDE 24 mmol/L (22-30); CHLORIDE 109 mmol/L (98-107); GLUCOSE 95 mg/dL (75-110); POTASSIUM 4.4 mmol/L (3.6-5.0); SODIUM 145.4 mmol/L (137-145); TOTAL PROTEIN 7.4 g/dL (6.3-8.2)
[2018-07-26 23:35] LABS: APPEARANCE,URINE CLEAR; BILIRUBIN,URINE NEGATIVE (NEGATIVE); COLOR,URINE YELLOW; GLUCOSE, URINE NEGATIVE (NEGATIVE); KETONES,URINE NEGATIVE (NEGATIVE); LEUKOCYTE ESTERASE,URINE NEGATIVE (NEGATIVE); NITRITE,URINE NEGATIVE (NEGATIVE); PROTEIN,URINE NEGATIVE (NEGATIVE); URINE SPECIFIC GRAVITY 1.019; UROBILINOGEN,URINE NEGATIVE mg/dL (<2.0)
--- NOTE | 2018-07-26 23:57 | ER Document Report ---
ED General - General Chief Complaint: Nausea/Vomiting/Diarrhea Stated Complaint: VOMITING/DIARRHEA Time Seen by Provider: 07/26/18 22:18 Notes: Patient is a 32-year-old female presents with complaint of vomiting and diarrhea that started 5 hours ago after she ate some sausage that she thought may be was not cooked all the way. She denies any fevers. Some crampy abdominal pain. Most pain is in the upper abdomen over the epigastric region. No vomiting blood. No blood in her stool. No dysuria. No abnormal vaginal discharge or bleeding. No other complaints at this time. TRAVEL OUTSIDE OF THE [place] IN LAST 30 DAYS: No - Related Data Allergies/Adverse Reactions: ketorolac tromethamine [From Toradol] Allergy (Verified 07/26/18 20:05) meperidine HCl [From Demerol] Allergy (Verified 07/26/18 20:05) metoclopramide HCl [From Reglan] Allergy (Verified 07/26/18 20:05) morphine [Morphine] Allergy (Verified 07/26/18 20:05) nalbuphine [From Nubain] Allergy (Verified 07/26/18 20:05) Hives tramadol [Tramadol] Allergy (Verified 07/26/18 20:05) Hives ondansetron HCl [From Zofran] Adverse Reaction (Verified 07/26/18 20:05) VOMITING Past Medical History - Social History Smoking Status: Current Every Day Smoker Frequency of alcohol use: None Drug Abuse: None Family History: Reviewed & Not Pertinent, Arthritis, DM, Hyperlipidemia, Hypertension Patient has suicidal ideation: No Patient has homicidal ideation: No - Past Medical History Cardiac Medical History: Reports: Hx Hypertension Neurological Medical History: Reports: Hx Migraine Renal/ Medical History: Denies: Hx Peritoneal Dialysis Musculoskeletal Medical History: Reports Hx Musculoskeletal Trauma Psychiatric Medical History: Reports: Hx Anxiety, Hx Attention Deficit Hyperactivity Disorder, Hx Bipolar Disorder, Hx Depression, Hx Post Traumatic Stress Disorder Traumatic Medical History: Reports: Hx Fractures - nose Past Surgical History: Reports: Hx Abdominal Surgery - LAPROSCOPY, Hx Gynecologic Surgery - d&c, lap for endometriosis, Hx Nose Surgery - Reconstruction for fracture, Other - facial reconstruction - Immunizations Immunizations up to date: Yes Hx Diphtheria, Pertussis, Tetanus Vaccination: Yes - 2010 Review of Systems - Review of Systems Notes: My Normal Review Basic REVIEW OF SYSTEMS: CONSTITUTIONAL : Denies fever, chills, or sweats. Denies recent illness. RESPIRATORY: Denies cough, cold, or chest congestion. Denies shortness of breath, difficulty breathing, or wheezing. GASTROINTESTINAL: Normal pain. Vomiting. Diarrhea. GENITOURINARY: Denies difficulty urinating, painful urination, burning, frequency, or blood in urine. FEMALE GENITOURINARY: Denies vaginal bleeding, abnormal or irregular periods. MUSCULOSKELETAL: Denies neck or back pain or joint pain or swelling. SKIN: Denies rash or skin lesions. NEUROLOGICAL: Denies altered mental status or loss of consciousness. Denies headache. Denies weakness or paralysis or loss of use of either side. Denies problems with gait or speech. Denies sensory or motor loss. ALL OTHER SYSTEMS REVIEWED AND NEGATIVE. Physical Exam - Vital signs Vitals: Temp Pulse Resp BP Pulse Ox 98.7 F 98 16 123/78 100 07/26/18 20:26 07/26/18 20:26 07/26/18 20:26 07/26/18 20:26 07/26/18 20:26 - Notes Notes: General Appearance: Well nourished, alert, cooperative, no acute distress, no obvious discomfort. Well-appearing. Vitals: reviewed, See vital signs table. Eyes: PERRL, EOMI, Conjuctiva clear Lungs: No wheezing, No rales, No rhonci, No accessory muscle use, good air exchange bilaterally. Heart: Normal rate, Regular rythm, No murmur, no rub Abdomen: Normal BS, soft, No rigidity, mild epigastric abdominal tenderness to palpation. Remainder of abdomen is nontender., No guarding, no rebound, no abdominal masses, no organomegaly Neuro: speech clear, oriented x 3, normal affect, responds appropriately to questions. Course - Re-evaluation Re-evalutation: 07/26/18 23:57 I reevaluate the patient. Her abdominal exam. But she still feels nauseous. I offered Zofran however the patient says she is allergic to Zofran. I asked her what her allergy is she says "it makes me vomit more". I will therefore give her another dose of Phenergan and reassess. Laboratory evaluation is completely unremarkable. 07/27/18 00:55 Her second dose of Phenergan patient is feeling improved. I feel that the patient safe to be discharged home. She still has some slight nausea but she has not had any vomiting here in the ER. She has a normal laboratory evaluation. She has no ketones in her urine. She is not dehydrated. Patient to return to ER if she has recurrent vomiting, blood in stool, or she has pain in her lower abdomen. Patient agrees with plan will be discharged home. Dictation of this chart was performed using voice recognition software; therefore, there may be some unintended grammatical errors. - Vital Signs Vital signs: Temp Pulse Resp BP Pulse Ox 98.8 F 98 16 123/78 100 07/27/18 00:23 07/26/18 20:26 07/26/18 20:26 07/26/18 20:26 07/26/18 20:26 - Laboratory Result Diagrams: 07/26/18 22:40 07/26/18 22:40 Laboratory results interpreted by me: 07/26/18 07/26/18 22:40 22:40 Hgb 11.3 L Hct 34.2 L RDW 16.0 H Plt Count 143 L Seg Neutrophils % 86.9 H Lymphocytes % 8.5 L Sodium 145.4 H Chloride 109 H Discharge - Discharge Clinical Impression: Vomiting and diarrhea Condition: Good Disposition: HOME, SELF-CARE Additional Instructions: Please take the Phenergan as prescribed. Please return to the ER if you have worsening abdominal pain, any pain over the right lower portion of your abdomen , any fevers, intractable vomiting, blood in your stool, or if you feel that you are worsening. Please drink non-caffeinated liquids over the next 24 hours. If you continue to do well with the liquids than you can slowly progress to a bland diet. Prescriptions: Promethazine HCl [Phenergan 25 mg Supp.rect] 1 supp SD Q6H #12 supp.rect
[2018-07-27] MEDS ORDERED: PROMETHAZINE HCL 25 MG SUPP (4 SUPP/ER DISP) PR ONE (00:52)
[2018-07-27 01:36] VITALS: BP 116/68
== END 2018-07-27 01:37 | disposition home or self-care (01) ==
LOC: ER 19:58
DX: R11.2 Nausea with vomiting, unspecified (principal); R19.7 Diarrhea, unspecified; R10.13 Epigastric pain; I10 Essential (primary) hypertension; F17.200 Nicotine dependence, unspecified, uncomplicated; Z88.8 Allergy status to other drugs, medicaments and biological substances; Z88.5 Allergy status to narcotic agent
CPT/HCPCS: 99284; 96372; 96360; 96361; 36415; 84703; 85025; 80053; 81001; J0500; J3490; J2550 ×2; J7030

== ENCOUNTER 2018-07-29 23:10 | Emergency (ER) | payer SELFPAY ==
--- NOTE | 2018-07-29 23:48 | ER Document Report ---
ED General - General Chief Complaint: Chest Pain Stated Complaint: HEART PALP, HIGH BLOOD PRESSURE CONCERNS, LUMP Time Seen by Provider: 07/29/18 23:44 Cannot obtain history due to: Other - Histrionic Notes: Patient is a 32-year old female with a past medical history of generalized anxiety, depression, who presents with multiple and varying complaints. The patient initially complains mostly about having palpitations to me but then proceeds to expand her complaints into the following concerns: Lack of blood flow to her hands and feet, discoloration of the skin over her knees, a lump in her left lower abdomen, high blood pressure, lightheadedness, nausea, chest discomfort, and diffuse joint pain. Patient states the symptoms come and go and have been present for anywhere between several months to over a year. Nothing seems to improve or worsen her symptoms. She notes that she has been seen in the emergency department and what is going on with her. She believes some of her symptoms may be due to her anxiety. She is unable to clarify what exactly prompted her come to the emergency department tonight other than her blood pressure was high TRAVEL OUTSIDE OF THE [place] IN LAST 30 DAYS: No - Related Data Allergies/Adverse Reactions: ketorolac tromethamine [From Toradol] Allergy (Verified 07/26/18 20:05) meperidine HCl [From Demerol] Allergy (Verified 07/26/18 20:05) metoclopramide HCl [From Reglan] Allergy (Verified 07/26/18 20:05) morphine [Morphine] Allergy (Verified 07/26/18 20:05) nalbuphine [From Nubain] Allergy (Verified 07/26/18 20:05) Hives tramadol [Tramadol] Allergy (Verified 07/26/18 20:05) Hives ondansetron HCl [From Zofran] Adverse Reaction (Verified 07/26/18 20:05) VOMITING Past Medical History - General Information source: Patient - Social History Smoking Status: Never Smoker Frequency of alcohol use: Occasional Drug Abuse: Cocaine Lives with: Spouse/Significant other Family History: Reviewed & Not Pertinent, Arthritis, DM, Hyperlipidemia, Hypertension - Past Medical History Cardiac Medical History: Reports: Hx Hypertension Neurological Medical History: Reports: Hx Migraine Renal/ Medical History: Denies: Hx Peritoneal Dialysis Musculoskeletal Medical History: Reports Hx Musculoskeletal Trauma Psychiatric Medical History: Reports: Hx Anxiety, Hx Attention Deficit Hyperactivity Disorder, Hx Bipolar Disorder, Hx Depression, Hx Post Traumatic Stress Disorder Traumatic Medical History: Reports: Hx Fractures - nose Past Surgical History: Reports: Hx Abdominal Surgery - LAPROSCOPY, Hx Gynecologic Surgery - d&c, lap for endometriosis, Hx Nose Surgery - Reconstruction for fracture, Other - facial reconstruction - Immunizations Immunizations up to date: Yes Hx Diphtheria, Pertussis, Tetanus Vaccination: Yes - 2010 Review of Systems - Review of Systems Notes: Constitutional: Negative for fever. HENT: Negative for sore throat. Eyes: Negative for visual changes. Cardiovascular: Positive for palpitations and intermittent chest discomfort Respiratory: Negative for shortness of breath. Gastrointestinal: Negative for abdominal pain, positive for nausea Genitourinary: Negative for dysuria. Musculoskeletal: Positive for diffuse joint pain Skin: Negative for rash. Neurological: Negative for headaches, weakness or numbness. 10 point ROS negative except as marked above and in HPI. Physical Exam - Vital signs Vitals: Temp Pulse Resp BP Pulse Ox 99.8 F 110 H 14 145/97 H 100 07/29/18 23:38 07/29/18 23:38 07/29/18 23:38 07/29/18 23:38 07/29/18 23:38 Interpretation: Tachycardic - Resolved at the time of my assessment Notes: PHYSICAL EXAMINATION: GENERAL: Well-appearing, well-nourished and in no acute distress. HEAD: Atraumatic, normocephalic. EYES: Pupils equal round and reactive to light, extraocular movements intact, sclera anicteric, conjunctiva are normal. ENT: nares patent, oropharynx clear without exudates. Moist mucous membranes. NECK: Normal range of motion, supple without lymphadenopathy LUNGS: Breath sounds clear to auscultation bilaterally and equal. No wheezes rales or rhonchi. HEART: Regular rate and rhythm without murmurs ABDOMEN: Soft, nontender, normoactive bowel sounds. No guarding, no rebound. No masses appreciated. EXTREMITIES: Normal range of motion, no pitting or edema. No cyanosis. NEUROLOGICAL: No focal neurological deficits. Moves all extremities spontaneously and on command. PSYCH: Extremely anxious, pressured speech SKIN: Warm, Dry, normal turgor, no rashes or lesions noted. Course - Re-evaluation Re-evalutation: 07/30/18 00:10 Patient presents with multiple vague complaints that did not appear to be concerning for any acute life-threatening pathology. Vitals are within normal limits at assessment and at time of discharge. Physical examination is unremarkable. Patient has tolerated oral intake without difficulty. Patient was not noted to be in distress at any point during their ER visit. At this time, based on the reassuring evaluation, I do not suspect an acute [place], pulmonary embolus, aortic dissection, acute intra-abdominal pathology, stroke, or sepsis.Will discharge with return precautions and follow-up recommendations. Verbal discharge instructions given a the bedside and opportunity for questions given. Medication warnings reviewed. Patient is in agreement with this plan and has verbalized understanding of return precautions and the need for primary care follow-up in the next 24-72 hours. - Vital Signs Vital signs: Temp Pulse Resp BP Pulse Ox 98.6 F 94 18 140/81 H 100 07/30/18 01:21 07/30/18 01:21 07/30/18 01:21 07/30/18 01:21 07/30/18 01:21 - EKG Interpretation by Me Additional EKG results interpreted by me: 07/30/18 00:10 Sinus rhythm. Rate 99. No ST elevations or depressions. QTC is 432. Discharge - Discharge Clinical Impression: Multiple complaints, Generalized anxiety disorder Condition: Good Disposition: HOME, SELF-CARE Additional Instructions: Please return to the emergency room immediately if you experience any concerning symptoms including high fevers, severe headache, chest pain, difficulty breathing, abdominal pain, slurred speech, numbness or weakness in your arms or legs, or any other symptom that concerns you. Referrals: ANTONELLA VIRGEN MD [Primary Care Provider] - Follow up as needed
[2018-07-30] MEDS ORDERED: HALOPERIDOL 5 MG TABLET PO ONE (00:10)
[2018-07-30 01:23] VITALS: BP 140/81
--- NOTE | 2018-07-30 10:39 | EKG REPORT ---
SEVERITY:- NORMAL ECG - SINUS RHYTHM : Confirmed by: Lin Jorge 30-Jul-2018 10:38:55
== END 2018-07-30 00:18 | disposition home or self-care (01) ==
LOC: ER 23:10
DX: F41.1 Generalized anxiety disorder (principal); I10 Essential (primary) hypertension; F14.10 Cocaine abuse, uncomplicated; R00.2 Palpitations; R07.9 Chest pain, unspecified; R11.0 Nausea; M25.50 Pain in unspecified joint; Z88.8 Allergy status to other drugs, medicaments and biological substances; Z88.5 Allergy status to narcotic agent
CPT/HCPCS: 93005; 93010; 99285

== ENCOUNTER 2018-08-07 23:15 | Emergency (ER) | payer SELFPAY ==
[2018-08-08] MEDS ORDERED: HYDROXYZINE PAMOATE 25 MG CAPSULE PO ONE (01:27)
--- NOTE | 2018-08-08 01:30 | ER Document Report ---
ED General - General Chief Complaint: Anxiety Stated Complaint: ANXIETY Time Seen by Provider: 08/08/18 01:18 TRAVEL OUTSIDE OF THE [place] IN LAST 30 DAYS: No - HPI Notes: Patient is a 32-year-old female that presents to the emergency department for chief complaint of anxiety and hypoglycemia. Patient states her anxiety is out of control. She reports feeling heart palpitations but denies chest pain and shortness of breath. She states this happens frequently. She states she is taking her medications as prescribed. She has an apartment with [facility] for further psychiatric management. She denies homicidal or suicidal ideation. She states she called EMS today and they told her blood sugar was low. She states that makes her blood pressure go "through the roof". She denies history of diabetes in the past. She denies any recent illness. She denies any nausea or vomiting but does state that she has not had much to eat today. Past Medical History: Anxiety, hypertension Past Surgical History: Reviewed in chart Social History: Reviewed in chart Family History: Reviewed and noncontributory for presenting illness Allergies: Reviewed, see documented allergy list. REVIEW OF SYSTEMS: CONSTITUTIONAL : No fever No chills No diaphoresis No recent illness EENT: No vision changes No congestion No sore throat CARDIOVASCULAR: No chest pain palpitations RESPIRATORY: No shortness of breath No cough No difficulty breathing GASTROINTESTINAL: No abdominal pain No nausea No vomiting No diarrhea GENITOURINARY: No dysuria No hematuria No difficulty urinating MUSCULOSKELETAL: No back pain No leg pain No arm pain SKIN: No rashes No lesions LYMPHATIC: No swollen, enlarged glands. NEUROLOGICAL: No lightheadedness No headache No weakness No paresthesias PSYCHIATRIC: anxiety No depression PHYSICAL EXAMINATION: Vital signs reviewed, nursing noted reviewed. GENERAL: Well-appearing, thin and in no acute distress. HEAD: Atraumatic, normocephalic. EYES: Eyes appear normal, extraocular movements intact, sclera anicteric, conjunctiva are normal. ENT: nares patent, oropharynx clear without exudates. Moist mucous membranes. NECK: Normal range of motion, supple without lymphadenopathy LUNGS: Breath sounds clear to auscultation bilaterally and equal. No wheezes rales or rhonchi. HEART: Regular rate and rhythm without murmurs ABDOMEN: Soft, nontender, normoactive bowel sounds. No rebound, guarding, or rigidity. No masses appreciated. EXTREMITIES: Nontender, good range of motion, no pitting or edema. NEUROLOGICAL: No focal neurological deficits. Moves all extremities spontaneously Motor and sensory grossly intact on exam. PSYCH: Normal mood, normal affect. SKIN: Warm, Dry, normal turgor, no rashes or lesions noted on exposed skin - Related Data Allergies/Adverse Reactions: ketorolac tromethamine [From Toradol] Allergy (Verified 07/26/18 20:05) meperidine HCl [From Demerol] Allergy (Verified 07/26/18 20:05) metoclopramide HCl [From Reglan] Allergy (Verified 07/26/18 20:05) morphine [Morphine] Allergy (Verified 07/26/18 20:05) nalbuphine [From Nubain] Allergy (Verified 07/26/18 20:05) Hives tramadol [Tramadol] Allergy (Verified 07/26/18 20:05) Hives ondansetron HCl [From Zofran] Adverse Reaction (Verified 07/26/18 20:05) VOMITING Past Medical History - Social History Smoking Status: Never Smoker Family History: Reviewed & Not Pertinent, Arthritis, DM, Hyperlipidemia, Hypertension - Past Medical History Cardiac Medical History: Reports: Hx Hypertension Neurological Medical History: Reports: Hx Migraine Renal/ Medical History: Denies: Hx Peritoneal Dialysis Musculoskeletal Medical History: Reports Hx Musculoskeletal Trauma Psychiatric Medical History: Reports: Hx Anxiety, Hx Attention Deficit Hyperactivity Disorder, Hx Bipolar Disorder, Hx Depression, Hx Post Traumatic Stress Disorder Traumatic Medical History: Reports: Hx Fractures - nose Past Surgical History: Reports: Hx Abdominal Surgery - LAPROSCOPY, Hx Gynecologic Surgery - d&c, lap for endometriosis, Hx Nose Surgery - Reconstruction for fracture, Other - facial reconstruction - Immunizations Immunizations up to date: Yes Hx Diphtheria, Pertussis, Tetanus Vaccination: Yes - 2010 Physical Exam - Vital signs Vitals: Temp Pulse Resp BP Pulse Ox 98.5 F 90 16 142/96 H 99 08/07/18 23:27 08/07/18 23:27 08/07/18 23:27 08/07/18 23:27 08/07/18 23:27 Course - Re-evaluation Re-evalutation: 08/08/18 01:29 Vitals reviewed. Nursing notes reviewed. Patient in no acute distress. She is requesting benzodiazepines for her anxiety. Patient has had 37 visits to the emergency room this year including 2 already this month. I had a long conversation with her regarding her need for primary care. She initially stated that she was going to get into [facility] in August when I continue to ask when her appointment when she states that she does not have an appointment. She was encouraged to call tomorrow to set up an appointment for primary care. She does see [facility] where she can discuss further management of her anxiety medications. Patient was given a dose of Vistaril in the emergency room, I explained that benzodiazepines are not indicated for her chronic anxiety. 08/08/18 02:00 Patient's Accu-Chek is 101. She is tolerating oral intake. She is hemodynamically stable. Her EKG shows no dysrhythmia or change from prior. Patient symptoms are chronic. She states she will follow with primary care as advised. - Vital Signs Vital signs: Temp Pulse Resp BP Pulse Ox 98.5 F 90 16 142/96 H 99 08/07/18 23:27 08/07/18 23:27 08/07/18 23:27 08/07/18 23:27 08/07/18 23:27 - EKG Interpretation by Me Additional EKG results interpreted by me: 08/08/18 01:59 Interpreted by myself [id number]: Normal sinus rhythm, rate 73, normal axis, no LVPW, no Wellens, no Brugada , no change from previous on 07/29/18 Discharge - Discharge Clinical Impression: Anxiety, Hypoglycemia Condition: Stable Disposition: HOME, SELF-CARE Instructions: Anxiety ([facility]), Family Physicians / Practices, Hypoglycemia ([facility]) Additional Instructions: Please return to the emergency department if you have any worsening, or concern of your symptoms. Please return to the emergency department if you develop chest pain, difficulty breathing, severe abdominal pain, or ongoing vomiting. Please follow-up with your primary care physician in 2-3 days and any other recommended physicians. If prescribed, take all medications as directed. If you have any questions or concerns do not hesitate to return the emergency department for evaluation. It is important for you to find a primary care provider to establish primary care follow-up. Please call the [facility] tomorrow and schedule an appointment at their earliest availability for evaluation. Please keep your appointment with [facility] on for further management of your chronic anxiety. Referrals: [facility] [Provider Group] - Follow up in 3-5 days [facility] [Provider Group] - Follow up in 3-5 days ANTONELLA VIRGEN MD [HONORARY] - Follow up in 3-5 days
[2018-08-08 02:09] VITALS: BP 136/74
--- NOTE | 2018-08-08 07:43 | EKG REPORT ---
SEVERITY:- NORMAL ECG - SINUS RHYTHM : Confirmed by: Dustin Andres MD 08-Aug-2018 07:42:16
== END 2018-08-08 02:09 | disposition home or self-care (01) ==
LOC: ER 23:15
DX: F41.9 Anxiety disorder, unspecified (principal); E16.2 Hypoglycemia, unspecified; I10 Essential (primary) hypertension; Z88.8 Allergy status to other drugs, medicaments and biological substances; Z88.5 Allergy status to narcotic agent
CPT/HCPCS: 82962; 93005; 93010; 99284

== ENCOUNTER 2018-08-08 21:05 | Emergency (ER) | payer SELFPAY ==
[2018-08-08 21:23] VITALS: BP 134/99
[2018-08-08] MEDS ORDERED: CLONAZEPAM 1 MG TABLET PO ONE (23:09)
--- NOTE | 2018-08-08 23:09 | ER Document Report ---
ED Psych Disorder / Suicide - General Chief Complaint: Breathing Difficulty Stated Complaint: DIFFICULTY BREATHING Time Seen by Provider: 08/08/18 22:32 Notes: This is a 32-year-old female who presents via ambulance for panic attack. Patient was seen here yesterday for the same. Patient states that she has numbness around her face and fingers and was having difficulty breathing. Was seen here yesterday for the same. Requesting "something for her anxiety". Patient states that she is followed by [facility]. Supposedly has an appointment tomorrow. Takes Klonopin and wants something right now. The patient denies any other symptoms at this time. TRAVEL OUTSIDE OF THE [place] IN LAST 30 DAYS: No - HPI Onset: Just prior to arrival Onset was: Gradual Quality of pain: No pain Severity: Moderate Pain Level: Denies Associated symptoms: Anxious - Related Data Allergies/Adverse Reactions: ketorolac tromethamine [From Toradol] Allergy (Verified 07/26/18 20:05) meperidine HCl [From Demerol] Allergy (Verified 07/26/18 20:05) metoclopramide HCl [From Reglan] Allergy (Verified 07/26/18 20:05) morphine [Morphine] Allergy (Verified 07/26/18 20:05) nalbuphine [From Nubain] Allergy (Verified 07/26/18 20:05) Hives tramadol [Tramadol] Allergy (Verified 07/26/18 20:05) Hives ondansetron HCl [From Zofran] Adverse Reaction (Verified 07/26/18 20:05) VOMITING Past Medical History - General Information source: Patient - Social History Smoking Status: Unknown if Ever Smoked Frequency of alcohol use: None Drug Abuse: None Lives with: Friend Family History: Reviewed & Not Pertinent, Arthritis, DM, Hyperlipidemia, Hypertension Patient has suicidal ideation: No Patient has homicidal ideation: No - Past Medical History Cardiac Medical History: Reports: Hx Hypertension Neurological Medical History: Reports: Hx Migraine Renal/ Medical History: Denies: Hx Peritoneal Dialysis Musculoskeletal Medical History: Reports Hx Musculoskeletal Trauma Psychiatric Medical History: Reports: Hx Anxiety, Hx Attention Deficit Hyperactivity Disorder, Hx Bipolar Disorder, Hx Depression, Hx Post Traumatic Stress Disorder Traumatic Medical History: Reports: Hx Fractures - nose Past Surgical History: Reports: Hx Abdominal Surgery - LAPROSCOPY, Hx Gynecologic Surgery - d&c, lap for endometriosis, Hx Nose Surgery - Reconstruction for fracture, Other - facial reconstruction - Immunizations Immunizations up to date: Yes Hx Diphtheria, Pertussis, Tetanus Vaccination: Yes - 2010 Review of Systems - Review of Systems Notes: Constitutional: denies: Chills, Diaphoresis, Fever, Malaise, Weakness EENT: denies: Eye discharge, Blurred vision, Tearing, Double vision, Nose congestion, Nose discharge, Throat swelling, Mouth pain Cardiovascular: denies: Palpitations, Heart racing, Orthopnea, Dyspnea, Chest pain Respiratory: denies: Cough, Hurts to breathe, Wheezing, Shortness of breath Gastrointestinal: denies: Abdominal pain, Diarrhea, Nausea, Vomiting, Black stools, bright red blood in stool Genitourinary: denies: Burning, Dysuria, Discharge, Frequency, Flank pain, Hematuria Musculoskeletal: denies: Joint pain, Joint swelling, Muscle pain, Muscle stiffness, back pain Hematologic/Lymphatic: denies: Anemia, Easy bleeding, Easy bruising, Blood clots Neurological/Psychological: Patient describing perioral paresthesias, carpopedal spasms, anxiety and panic attacks Skin: No lesions, no masses, no skin breakdown, no abscesses Physical Exam - Vital signs Vitals: Temp Pulse Resp BP Pulse Ox 98.4 F 88 16 134/99 H 100 08/08/18 21:19 08/08/18 21:19 08/08/18 21:19 08/08/18 21:19 08/08/18 21:19 Interpretation: Normal - General General appearance: Appears well, Alert - HEENT Head: Normocephalic, Atraumatic Eyes: Normal Pupils: PERRL - Respiratory Respiratory status: No respiratory distress Chest status: Nontender Breath sounds: Normal Chest palpation: Normal - Cardiovascular Rhythm: Regular Heart sounds: Normal auscultation Murmur: No - Abdominal Inspection: Normal Distension: No distension Bowel sounds: Normal Tenderness: Nontender Organomegaly: No organomegaly - Back Back: Normal, Nontender - Extremities General upper extremity: Normal inspection, Nontender, Normal color, Normal ROM , Normal temperature General lower extremity: Normal inspection, Nontender, Normal color, Normal ROM , Normal temperature, Normal weight bearing. No: Yovani's sign - Neurological Neuro grossly intact: Yes Cognition: Normal Orientation: AAOx4 Ron Coma Scale Eye Opening: Spontaneous Ron Coma Scale Verbal: Oriented Ron Coma Scale Motor: Obeys Commands [place] Coma Scale Total: 15 Speech: Normal Motor strength normal: LUE, RUE, LLE, RLE Sensory: Normal - Psychological Associated symptoms: Normal affect, Normal mood - Skin Skin Temperature: Warm Skin Moisture: Dry Skin Color: Normal Course - Re-evaluation Re-evalutation: 08/08/18 23:09 32-year-old female patient seen her multiple occasions for anxiety disorder. Followed by psychiatry. Review of her prescription/controlled substance report reveals that she has had multiple prescriptions for controlled substances. Patient is being prescribed amphetamines as well as anxiolytic medication. Regardless it looks like her last prescription for clonazepam is 30 days ago. There is a possibility that she could be going through benzodiazepine withdrawals. I do not want her to have a seizure so I am going to give her half a milligram of a long-acting benzodiazepine at this time. Patient supposedly has an appointment with mental health tomorrow. She can have her prescriptions addressed there. I have given her a lengthy conversation with regards to anxiety. Patient is presenting with hyperventilatory syndrome symptoms. She gets classic presentation of perioral paresthesias as well as carpopedal spasms. I have given her techniques and some cognitive behavioral therapy while in the emergency department. - Vital Signs Vital signs: Temp Pulse Resp BP Pulse Ox 98.4 F 88 17 134/99 H 100 08/08/18 21:19 08/08/18 23:12 08/08/18 23:12 08/08/18 21:19 08/08/18 23:12 Discharge - Discharge Clinical Impression: Chronic anxiety, Hyperventilation syndrome Condition: Good Disposition: HOME, SELF-CARE Instructions: Anxiety ([facility]), Hyperventilation ([facility]) Additional Instructions: Please follow-up with your doctors for your prescriptions. Follow the techniques that I gave you with regards to hyperventilating.
== END 2018-08-08 23:41 | disposition home or self-care (01) ==
LOC: ER 21:05
DX: F41.9 Anxiety disorder, unspecified (principal); F45.8 Other somatoform disorders; I10 Essential (primary) hypertension; Z88.8 Allergy status to other drugs, medicaments and biological substances; Z88.5 Allergy status to narcotic agent
CPT/HCPCS: 82962; 99285

== ENCOUNTER 2018-08-22 21:05 | Emergency (ER) | payer SELFPAY ==
--- NOTE | 2018-08-22 23:34 | ER Document Report ---
ED Medical Screen (RME) - General Chief Complaint: Breathing Difficulty Stated Complaint: LIGHT HEADED Time Seen by Provider: 08/22/18 23:30 Notes: Patient is a 32-year-old female who presents to the emergency department with a chief complaint of lightheadedness, poor circulation, and an anxiety attack. She states she is on Klonopin for her anxiety. She has not seen her psychiatrist for today's complaints. TRAVEL OUTSIDE OF THE [place] IN LAST 30 DAYS: No - Related Data Allergies/Adverse Reactions: ketorolac tromethamine [From Toradol] Allergy (Verified 07/26/18 20:05) meperidine HCl [From Demerol] Allergy (Verified 07/26/18 20:05) metoclopramide HCl [From Reglan] Allergy (Verified 07/26/18 20:05) morphine [Morphine] Allergy (Verified 07/26/18 20:05) nalbuphine [From Nubain] Allergy (Verified 07/26/18 20:05) Hives tramadol [Tramadol] Allergy (Verified 07/26/18 20:05) Hives ondansetron HCl [From Zofran] Adverse Reaction (Verified 07/26/18 20:05) VOMITING Past Medical History - Social History Family history: None - Past Medical History Cardiac Medical History: Reports: Hx Hypertension Neurological Medical History: Reports: Hx Migraine Renal/ Medical History: Denies: Hx Peritoneal Dialysis Musculoskeltal Medical History: Reports Hx Musculoskeletal Trauma Psychiatric Medical History: Reports: Hx Anxiety, Hx Attention Deficit Hyperactivity Disorder, Hx Bipolar Disorder, Hx Depression, Hx Post Traumatic Stress Disorder Traumatic Medical History: Reports: Hx Fractures - nose Past Surgical History: Reports: Hx Abdominal Surgery - LAPROSCOPY, Hx Gynecologic Surgery - d&c, lap for endometriosis, Hx Nose Surgery - Reconstruction for fracture, Other - facial reconstruction - Immunizations Immunizations up to date: Yes Hx Diphtheria, Pertussis, Tetanus Vaccination: Yes - 2010 Physical Exam - Vital signs Vitals: Temp Pulse Resp BP Pulse Ox 99.2 F 98 16 149/106 H 99 08/22/18 21:20 08/22/18 21:20 08/22/18 21:20 08/22/18 21:20 08/22/18 21:20 Course - Vital Signs Vital signs: Temp Pulse Resp BP Pulse Ox 99.2 F 98 16 149/106 H 99 08/22/18 21:20 08/22/18 21:20 08/22/18 21:20 08/22/18 21:20 08/22/18 21:20
--- NOTE | 2018-08-23 01:55 | ER Document Report ---
ED General - General Chief Complaint: Breathing Difficulty Stated Complaint: LIGHT HEADED Time Seen by Provider: 08/22/18 23:30 Notes: Patient is a 32-year-old female well-known to the ED presents with complaint of feeling that she does not have good circulation into her hands or feet, she feels that she is dehydrated, she feels that she is getting a cold, she is concerned her blood pressure is high. When I asked her what she means by poor circulation in her hands and feet she just pushes on her extremities and says "see". She was recently changed from lisinopril to clonidine. She says since doing this her blood pressures been running high. She also says her blood sugars range anywhere from 60-177. This is also concerning to her. She also says she is very anxious. She takes Klonopin for anxiety. She has not missed any dosages. She was also recently started on Latuda but forgot to keep taking it and therefore is unsure if maybe this could be contributing to her symptoms. She denies any fevers. Some nausea but no vomiting. She is unsure she be . She has no other complaints at this time. TRAVEL OUTSIDE OF THE [place] IN LAST 30 DAYS: No - Related Data Allergies/Adverse Reactions: ketorolac tromethamine [From Toradol] Allergy (Verified 07/26/18 20:05) meperidine HCl [From Demerol] Allergy (Verified 07/26/18 20:05) metoclopramide HCl [From Reglan] Allergy (Verified 07/26/18 20:05) morphine [Morphine] Allergy (Verified 07/26/18 20:05) nalbuphine [From Nubain] Allergy (Verified 07/26/18 20:05) Hives tramadol [Tramadol] Allergy (Verified 07/26/18 20:05) Hives ondansetron HCl [From Zofran] Adverse Reaction (Verified 07/26/18 20:05) VOMITING Past Medical History - Social History Smoking Status: Unknown if Ever Smoked Frequency of alcohol use: None Drug Abuse: None Family History: Reviewed & Not Pertinent, Arthritis, DM, Hyperlipidemia, Hypertension - Past Medical History Cardiac Medical History: Reports: Hx Hypertension Neurological Medical History: Reports: Hx Migraine Renal/ Medical History: Denies: Hx Peritoneal Dialysis Musculoskeletal Medical History: Reports Hx Musculoskeletal Trauma Psychiatric Medical History: Reports: Hx Anxiety, Hx Attention Deficit Hyperactivity Disorder, Hx Bipolar Disorder, Hx Depression, Hx Post Traumatic Stress Disorder Traumatic Medical History: Reports: Hx Fractures - nose Past Surgical History: Reports: Hx Abdominal Surgery - LAPROSCOPY, Hx Gynec ologic Surgery - d&c, lap for endometriosis, Hx Nose Surgery - Reconstruction for fracture, Other - facial reconstruction - Immunizations Immunizations up to date: Yes Hx Diphtheria, Pertussis, Tetanus Vaccination: Yes - 2010 Review of Systems - Review of Systems Notes: My Normal Review Basic REVIEW OF SYSTEMS: CONSTITUTIONAL : Denies fever, chills, or sweats. Denies recent illness. EENT: Nasal congestion. Some bilateral ear pain. CARDIOVASCULAR: Denies chest pain. RESPIRATORY: Denies cough, cold, or chest congestion. Denies shortness of breath, difficulty breathing, or wheezing. GASTROINTESTINAL: Denies abdominal pain. Denies nausea, vomiting, or diarrhea. Denies constipation. Last BM: GENITOURINARY: Denies difficulty urinating, painful urination, burning, frequency, or blood in urine. FEMALE GENITOURINARY: Denies vaginal bleeding, abnormal or irregular periods. : MUSCULOSKELETAL: Denies neck or back pain or joint pain or swelling. SKIN: Denies rash or skin lesions. NEUROLOGICAL: Denies altered mental status or loss of consciousness. Denies headache. Denies weakness or paralysis or loss of use of either side. Denies problems with gait or speech. Denies sensory or motor loss. PSYCHIATRIC: Anxiety ALL OTHER SYSTEMS REVIEWED AND NEGATIVE. Physical Exam - Vital signs Vitals: Temp Pulse Resp BP Pulse Ox 99.2 F 98 16 149/106 H 99 08/22/18 21:20 08/22/18 21:20 08/22/18 21:20 08/22/18 21:20 08/22/18 21:20 - Notes Notes: General Appearance: Well nourished, alert, cooperative, no acute distress, no obvious discomfort. Vitals: reviewed, See vital signs table. Head: no swelling or tenderness to the head Eyes: PERRL, EOMI, Conjuctiva clear Mouth: No decreasd moisture Throat: No tonsillar inflammation, No airway obstruction, No lymphadenopathy Neck: Supple, no neck tenderness, No neck swelling Lungs: No wheezing, No rales, No rhonci, No accessory muscle use, good air exchange bilaterally. Heart: Normal rate, Regular rythm, No murmur, no rub Abdomen: Normal BS, soft, No rigidity, No abdominal tenderness, No guarding, no rebound, no abdominal masses, no organomegaly Extremities: strength 5/5 in all extremities, good pulses in all extremities, no swelling or tenderness in the extremities, no edema. Normal capillary refill in all fingers and toes. Skin: warm, dry, appropriate color, no rash Neuro: speech clear, oriented x 3, normal affect, responds appropriately to questions. Gastric: Anxious Course - Re-evaluation Re-evalutation: 08/23/18 03:48 Patient is resting comfortably after the Phenergan. Blood pressure is improving with amlodipine. I have her stop the clonidine and switch the amlodipine. Hopefully this will help prevent rebound hypertension. I suspect a lot of the patient's symptoms are related to anxiety. She complains of poor circulation however her circulation exam is completely normal. She has nausea which she frequently does whenever she comes in with anxiety. She also feels that she is dehydrated even though her she has moist mucous membranes and no signs of dehydration on exam. I talked her length about this. She is understanding of this. She did take her clonidine pen and it made her feel much improved. At this time I feel she safe to be discharged home. I strongly encouraged her return to ER if she has recurrent worsening of her symptoms, intractable vomiting, or if she feels unwell. Patient agrees with plan and will be discharged home. Dictation of this chart was performed using voice recognition software; therefore, there may be some unintended grammatical errors. - Vital Signs Vital signs: Temp Pulse Resp BP Pulse Ox 99.2 F 98 16 149/106 H 99 08/22/18 21:20 08/22/18 21:20 08/22/18 21:20 08/22/18 21:20 08/22/18 21:20 - EKG Interpretation by Me Additional EKG results interpreted by me: 08/23/18 01:54 EKG is reviewed and interpreted by me. EKG shows sinus rhythm with a rate of [address] segment elevation or depression. No ischemic T wave inversions. OH interval, QRS duration, QT intervals are within normal range. No old EKG available for comparison. Discharge - Discharge Clinical Impression: Anxiety, Nausea Hypertension Qualifiers: Hypertension type: unspecified Qualified Code(s): I10 - Essential (primary) hypertension Condition: Good Disposition: HOME, SELF-CARE Additional Instructions: Please stop taking the Clonidine and start taking the amlodipine for your high blood pressure. Please take the Phenergan as needed for nausea. Please return to the ER immediately if you develop intractable vomiting, fevers, severe headache, chest pain, or feel unwell. Please follow up with your physician to talk to them about the change in your high blood pressure medication. Prescriptions: Amlodipine Besylate [Norvasc 5 mg Tablet] 5 mg PO DAILY #30 tablet Promethazine HCl [Phenergan 25 mg Tablet] 1 tab PO Q6H PRN #15 tablet PRN Reason:
[2018-08-23] MEDS ORDERED: PROMETHAZINE HCL INJ 25 MG/1 ML VIAL IM ONE (02:06)
[2018-08-23] MEDS ORDERED: AMLODIPINE BESYLATE 5 MG TABLET PO ONE (02:06)
[2018-08-23 04:05] VITALS: BP 135/86
--- NOTE | 2018-08-23 17:21 | EKG REPORT ---
SEVERITY:- NORMAL ECG - SINUS RHYTHM : Confirmed by: Naty Ragsdale MD 23-Aug-2018 17:20:45
== END 2018-08-23 04:06 | disposition home or self-care (01) ==
LOC: ER 21:05
DX: F41.9 Anxiety disorder, unspecified (principal); Z79.899 Other long term (current) drug therapy; I10 Essential (primary) hypertension; R11.0 Nausea; R09.81 Nasal congestion; H92.03 Otalgia, bilateral; F31.9 Bipolar disorder, unspecified; T43.596A Underdosing of other antipsychotics and neuroleptics, initial encounter; Z91.128 Patient's intentional underdosing of medication regimen for other reason; Z91.14 Patient's other noncompliance with medication regimen; Z88.8 Allergy status to other drugs, medicaments and biological substances; Z88.5 Allergy status to narcotic agent
CPT/HCPCS: 93005; 99285; 96372; 82962; 81025; 93010; J2550

== ENCOUNTER 2018-08-26 18:35 | Emergency (ER) | payer SELFPAY ==
--- NOTE | 2018-08-26 19:13 | ER Document Report ---
ED Medical Screen (RME) - General Chief Complaint: Blood Pressure Problem Stated Complaint: BLOOD PRESSURE ISSUES Time Seen by Provider: 08/26/18 18:54 TRAVEL OUTSIDE OF THE [place] IN LAST 30 DAYS: No - Related Data Allergies/Adverse Reactions: ketorolac tromethamine [From Toradol] Allergy (Verified 08/26/18 18:36) meperidine HCl [From Demerol] Allergy (Verified 08/26/18 18:36) metoclopramide HCl [From Reglan] Allergy (Verified 08/26/18 18:36) morphine [Morphine] Allergy (Verified 08/26/18 18:36) nalbuphine [From Nubain] Allergy (Verified 08/26/18 18:36) Hives tramadol [Tramadol] Allergy (Verified 08/26/18 18:36) Hives ondansetron HCl [From Zofran] Adverse Reaction (Verified 08/26/18 18:36) VOMITING Past Medical History - Social History Family history: None - Past Medical History Cardiac Medical History: Reports: Hx Hypertension Neurological Medical History: Reports: Hx Migraine Renal/ Medical History: Denies: Hx Peritoneal Dialysis Musculoskeltal Medical History: Reports Hx Musculoskeletal Trauma Psychiatric Medical History: Reports: Hx Anxiety, Hx Attention Deficit H yperactivity Disorder, Hx Bipolar Disorder, Hx Depression, Hx Post Traumatic Stress Disorder Traumatic Medical History: Reports: Hx Fractures - nose Past Surgical History: Reports: Hx Abdominal Surgery - LAPROSCOPY, Hx Gynecologic Surgery - d&c, lap for endometriosis, Hx Nose Surgery - Reconstruction for fracture, Other - facial reconstruction - Immunizations Immunizations up to date: Yes Hx Diphtheria, Pertussis, Tetanus Vaccination: Yes - 2010 Physical Exam - Vital signs Vitals: Temp Pulse Resp BP Pulse Ox 98.5 F 115 H 14 144/94 H 100 08/26/18 18:39 08/26/18 18:39 08/26/18 18:39 08/26/18 18:39 08/26/18 18:39 Course - Re-evaluation Re-evalutation: There is a 32-year-old female with a history of bipolar disorder as well as anxiety who believes that she has schizophrenia, she has had worsening anxiety refractory to her use of Klonopin at home. This patient thinks she is decompensating and states that she does have hallucinations. She also tells me that her vision is somewhat spotty she does have some tonsillar pain. Have seen and performed the rapid screening examination on this patient. She will require further investigation evaluation by secondary provider as well as disposition determination. - Vital Signs Vital signs: Temp Pulse Resp BP Pulse Ox 98.5 F 115 H 14 144/94 H 100 08/26/18 18:39 08/26/18 18:39 08/26/18 18:39 08/26/18 18:39 08/26/18 18:39 - Laboratory Result Diagrams: 08/26/18 19:50 08/26/18 19:50 Laboratory results interpreted by me: 08/26/18 19:50 RDW 15.5 H Seg Neutrophils % 41.4 L
[2018-08-26 20:10] LABS: ABSOLUTE EOSINOPHILS # (AUTO) 0.2 10^3/uL (0.0-0.6); ABSOLUTE LYMPHOCYTES (AUTO) 1.9 10^3/uL (0.5-4.7); ABSOLUTE MONOCYTES (AUTO) 0.4 10^3/uL (0.1-1.4); ABSOLUTE NEUT (AUTO) 1.8 10^3/uL (1.7-8.2); BASOPHILS % (AUTO) 0.5 % (0-2); EOSINOPHILS % (AUTO) 5.6 % (0-6); HEMATOCRIT 37.9 % (36.0-47.0); HEMOGLOBIN 12.4 g/dL (12.0-15.5); LYMPHOCYTES % (AUTO) 43.2 % (13-45); MEAN CORPUSCULAR HEMOGLOBIN 27.6 pg (27.0-33.4); MEAN CORPUSCULAR HGB CONC 32.7 g/dL (32.0-36.0); MEAN CORPUSCULAR VOLUME 84 fl (80-97); MONOCYTES % (AUTO) 9.3 % (3-13); PLATELET COUNT 152 10^3/uL (150-450); RED BLOOD COUNT 4.49 10^6/uL (3.72-5.28); RED CELL DISTRIBUTION WIDTH 15.5 % (11.5-14.0); SEGMENTED NEUTROPHILS % (AUTO) 41.4 % (42-78); TOTAL CELLS COUNTED % (AUTO) 100 %; WHITE BLOOD COUNT 4.4 10^3/uL (4.0-10.5)
[2018-08-26] MEDS ORDERED: LORAZEPAM 1 MG TABLET PO ONE (20:51)
[2018-08-26 20:53] LABS: APPEARANCE,URINE SLIGHTLY-CLOUDY; BILIRUBIN,URINE NEGATIVE (NEGATIVE); COLOR,URINE YELLOW; GLUCOSE, URINE NEGATIVE (NEGATIVE); KETONES,URINE NEGATIVE (NEGATIVE); LEUKOCYTE ESTERASE,URINE NEGATIVE (NEGATIVE); NITRITE,URINE NEGATIVE (NEGATIVE); PROTEIN,URINE NEGATIVE (NEGATIVE); URINE SPECIFIC GRAVITY 1.013
[2018-08-26 20:55] LABS: ALANINE AMINOTRANSFERASE 15 U/L (9-52); ALBUMIN 4.8 g/dL (3.5-5.0); ALKALINE PHOSPHATASE 61 U/L (38-126); ANION GAP 14 (5-19); ASPARTATE AMINO TRANSFERASE 25 U/L (14-36); BILIRUBIN,DIRECT 0.3 mg/dL (0.0-0.4); BLOOD UREA NITROGEN 11 mg/dL (7-20); CALCIUM 9.8 mg/dL (8.4-10.2); CARBON DIOXIDE 18 mmol/L (22-30); CHLORIDE 110 mmol/L (98-107); GLUCOSE 95 mg/dL (75-110); POTASSIUM 3.7 mmol/L (3.6-5.0); SODIUM 141.7 mmol/L (137-145); TOTAL PROTEIN 8.2 g/dL (6.3-8.2)
[2018-08-26 20:57] LABS: URINE AMPHETAMINES SCREEN UNCONFIRMED POSITIVE; URINE BARBITURATES SCREEN NEGATIVE; URINE BENZODIAZEPINES SCREEN NEGATIVE; URINE COCAINE SCREEN NEGATIVE; URINE MARIJUANA (THC) SCREEN NEGATIVE; URINE METHADONE SCREEN NEGATIVE; URINE PHENCYCLIDINE SCREEN NEGATIVE
[2018-08-26 21:00] LABS: ACETAMINOPHEN < 10 ug/mL (10-30); ALCOHOL < 10 mg/dL (NONE DETECTED); SALICYLATE < 1.0 mg/dL (2.0-20.0)
--- NOTE | 2018-08-26 21:30 | ER Document Report ---
Addendum entered and electronically signed by ORQUIDEA SEXTON LCSWA 08/27/18 09:52: Discharge - Discharge Clinical Impression: Anxiety, Nausea, Sore throat Hypertension Qualifiers: Hypertension type: unspecified Qualified Code(s): I10 - Essential (primary) hypertension Depression Qualifiers: Depression Type: unspecified Qualified Code(s): F32.9 - Major depressive disorder, single episode, unspecified Condition: Good Disposition: HOME, SELF-CARE Instructions: Sore Throat ([facility]) Additional Instructions: You have been evaluated by both medical and behavioral health teams and been deemed appropriate for discharge. You are recommended to follow-up with your outpatient mental health services, [facility], for any concerns of medications. You have been provided a local resource list of area providers including mobile crisis contact information. AT ANY TIME, IF YOUR SYMPTOMS CHANGE SIGNIFICANTLY OR WORSEN OR YOU DEVELOP NEW SYMPTOMS, RETURN TO THE EMERGENCY DEPARTMENT IMMEDIATELY FOR RE-EVALUATION. Forms: Elevated Blood Pressure Referrals: [facility] [Outside] - Follow up in 3-5 days [facility] [Outside] - Follow up as needed Original Note: ED General - General Chief Complaint: Blood Pressure Problem Stated Complaint: BLOOD PRESSURE ISSUES Time Seen by Provider: 08/26/18 18:54 Mode of Arrival: Ambulatory Information source: Patient, Relative, [facility] Records Notes: 32-year-old female with bipolar disorder, asthma, depression, anxiety, hypertension presents with complaint of worsening depression and anxiety despite her Klonopin use. Patient states that she used to be on Latuda but that it caused her to have suicidal ideation. Patient has multiple vague complaints including decreased circulation, discoloration of her skin, sore throat. She denies suicidal ideation, homicidal ID, auditory and visual hallucinations although she did tell the physician in triage that she was having auditory hallucinations. Upon my exam patient will not tell me what she is anxious or depressed about. Her is at the bedside and states that "things have been rough lately". Neither will elaborate. Patient was seen recently in the emergency department and start amlodipine for hypertension. She also was started on Phenergan for her complaints of nausea. TRAVEL OUTSIDE OF THE [place] IN LAST 30 DAYS: No - HPI Onset: Other Onset/Duration: Gradual, Persistent Quality of pain: Achy Severity: Mild Associated symptoms: Body/muscle aches, Sore throat Exacerbated by: Denies Relieved by: Denies Similar symptoms previously: Yes Recently seen / treated by doctor: Yes - Related Data Allergies/Adverse Reactions: ketorolac tromethamine [From Toradol] Allergy (Verified 08/26/18 18:36) meperidine HCl [From Demerol] Allergy (Verified 08/26/18 18:36) metoclopramide HCl [From Reglan] Allergy (Verified 08/26/18 18:36) morphine [Morphine] Allergy (Verified 08/26/18 18:36) nalbuphine [From Nubain] Allergy (Verified 08/26/18 18:36) Hives tramadol [Tramadol] Allergy (Verified 08/26/18 18:36) Hives ondansetron HCl [From Zofran] Adverse Reaction (Verified 08/26/18 18:36) VOMITING Past Medical History - General Information source: Patient - Social History Smoking Status: Current Every Day Smoker Cigarette use (# per day): Yes - 10 Smoking Education Provided: Yes - Smoking cessation counseling was provided for 4 minutes at the bedside Frequency of alcohol use: Occasional Drug Abuse: None Lives with: Spouse/Significant other Family History: Reviewed & Not Pertinent, Arthritis, DM, Hyperlipidemia, Hypertension Patient has suicidal ideation: No Patient has homicidal ideation: No - Past Medical History Cardiac Medical History: Reports: Hx Hypertension Neurological Medical History: Reports: Hx Migraine Renal/ Medical History: Denies: Hx Peritoneal Dialysis Musculoskeletal Medical History: Reports Hx Musculoskeletal Trauma Psychiatric Medical History: Reports: Hx Anxiety, Hx Attention Deficit Hyperactivity Disorder, Hx Bipolar Disorder, Hx Depression, Hx Post Traumatic Stress Disorder Traumatic Medical History: Reports: Hx Fractures - nose Past Surgical History: Reports: Hx Abdominal Surgery - LAPROSCOPY, Hx G ynecologic Surgery - d&c, lap for endometriosis, Hx Nose Surgery - Reconstruction for fracture, Other - facial reconstruction - Immunizations Immunizations up to date: Yes Hx Diphtheria, Pertussis, Tetanus Vaccination: Yes - 2010 Review of Systems - Review of Systems Constitutional: Malaise, Weight loss EENT: Throat pain. denies: Blurred vision Cardiovascular: Palpitations. denies: Chest pain, Dizziness Respiratory: denies: Short of breath Gastrointestinal: Nausea. denies: Abdominal pain, Diarrhea, Vomiting Genitourinary: denies: Dysuria Female Genitourinary: No symptoms reported Musculoskeletal: Muscle stiffness Skin: Change in color Hematologic/Lymphatic: Swollen glands Neurological/Psychological: Depression, Anxiety. denies: Headaches, Suicidal ideation -: Yes All other systems reviewed and negative Physical Exam - Vital signs Vitals: Temp Pulse Resp BP Pulse Ox 98.5 F 115 H 14 144/94 H 100 08/26/18 18:39 08/26/18 18:39 08/26/18 18:39 08/26/18 18:39 08/26/18 18:39 Interpretation: Hypertensive, Tachycardic - Notes Notes: PHYSICAL EXAMINATION: GENERAL: Well-appearing, well-nourished and in no acute distress. HEAD: Atraumatic, normocephalic. EYES: Pupils equal round and reactive to light, extraocular movements intact, conjunctiva are normal. ENT: Nares patent, oropharynx clear without exudates. Left tonsillar swelling. Moist mucous membranes. NECK: Normal range of motion, supple without lymphadenopathy LUNGS: Breath sounds clear to auscultation bilaterally and equal. No wheezes rales or rhonchi. HEART: Regular rate and rhythm without murmurs ABDOMEN: Soft, nontender, nondistended abdomen. No guarding, no rebound. No masses appreciated. Female : deferred Musculoskeletal: Normal range of motion, no pitting or edema. No cyanosis. NEUROLOGICAL: Cranial nerves grossly intact. Normal speech, normal gait. Normal sensory, motor exams PSYCH: Flat affect, tearful, reports worsening depression. Denies suicidal, homicidal ideation SKIN: Warm, Dry, normal turgor, no rashes or lesions noted. Course - Re-evaluation Re-evalutation: 08/26/18 23:15 Laboratory 08/26/18 08/26/18 08/26/18 19:50 19:50 20:10 WBC 4.4 RBC 4.49 Hgb 12.4 Hct 37.9 MCV 84 MCH 27.6 MCHC 32.7 RDW 15.5 H Plt Count 152 Seg Neutrophils % 41.4 L Lymphocytes % 43.2 Monocytes % 9.3 Eosinophils % 5.6 Basophils % 0.5 Absolute Neutrophils 1.8 Absolute Lymphocytes 1.9 Absolute Monocytes 0.4 Absolute Eosinophils 0.2 Absolute Basophils 0.0 Sodium 141.7 Potassium 3.7 Chloride 110 H Carbon Dioxide 18 L Anion Gap 14 BUN 11 Creatinine 0.58 Est GFR ( Amer) > 60 Est GFR (Non-Af Amer) > 60 Glucose 95 Calcium 9.8 Total Bilirubin 1.0 Direct Bilirubin 0.3 Neonat Total Bilirubin Not Reportable Neonat Direct Bilirubin Not Reportable Neonat Indirect Bili Not Reportable AST 25 ALT 15 Alkaline Phosphatase 61 Total Protein 8.2 Albumin 4.8 Urine Color YELLOW Urine Appearance SLIGHTLY-CLOUDY Urine pH 6.0 Ur Specific [place] 1.013 Urine Protein NEGATIVE Urine Glucose (UA) NEGATIVE Urine Ketones NEGATIVE Urine Blood NEGATIVE Urine Nitrite NEGATIVE Urine Bilirubin NEGATIVE Urine Urobilinogen 2.0 H Ur Leukocyte Esterase NEGATIVE Urine WBC (Auto) 2 Urine RBC (Auto) 0 Squamous Epi Cells Auto 5 Urine Mucus (Auto) FEW Urine Ascorbic Acid NEGATIVE Salicylates < 1.0 L Urine Opiates Screen Urine Methadone Screen Acetaminophen < 10 L Ur Barbiturates Screen Ur Phencyclidine Scrn Ur Amphetamines Screen U Benzodiazepines Scrn Urine Cocaine Screen U Marijuana (THC) Screen Serum Alcohol < 10 08/26/18 20:10 WBC RBC Hgb Hct MCV MCH MCHC RDW Plt Count Seg Neutrophils % Lymphocytes % Monocytes % Eosinophils % Basophils % Absolute Neutrophils Absolute Lymphocytes Absolute Monocytes Absolute Eosinophils Absolute Basophils Sodium Potassium Chloride Carbon Dioxide Anion Gap BUN Creatinine Est GFR ( Amer) Est GFR (Non-Af Amer) Glucose Calcium Total Bilirubin Direct Bilirubin Neonat Total Bilirubin Neonat Direct Bilirubin Neonat Indirect Bili AST ALT Alkaline Phosphatase Total Protein Albumin Urine Color Urine Appearance Urine pH Ur Specific [place] Urine Protein Urine Glucose (UA) Urine Ketones Urine Blood Urine Nitrite Urine Bilirubin Urine Urobilinogen Ur Leukocyte Esterase Urine WBC (Auto) Urine RBC (Auto) Squamous Epi Cells Auto Urine Mucus (Auto) Urine Ascorbic Acid Salicylates Urine Opiates Screen NEGATIVE Urine Methadone Screen NEGATIVE Acetaminophen Ur Barbiturates Screen NEGATIVE Ur Phencyclidine Scrn NEGATIVE Ur Amphetamines Screen UNCONFIRMED POSITIVE U Benzodiazepines Scrn NEGATIVE Urine Cocaine Screen NEGATIVE U Marijuana (THC) Screen NEGATIVE Serum Alcohol Temp Pulse Resp BP Pulse Ox 98.5 F 115 H 14 144/94 H 100 08/26/18 18:39 08/26/18 18:39 08/26/18 18:39 08/26/18 18:39 08/26/18 18:39 08/26/18 23:15 32-year-old female with bipolar disorder, asthma, depression, anxiety, hypertension presents with complaint of worsening depression and anxiety despite her Klonopin use. Patient states that she used to be on Latuda but that it caused her to have suicidal ideation. Patient has multiple vague complaints including decreased circulation, discoloration of her skin, sore throat. She denies suicidal ideation, homicidal ID, auditory and visual hallucinations although she did tell the physician in triage that she was having auditory hallucinations. Upon my exam patient will not tell me what she is anxious or d epressed about. Her is at the bedside and states that "things have been rough lately". Neither will elaborate. Patient was seen recently in the emergency department and start amlodipine for hypertension. She also was started on Phenergan for her complaints of nausea. Upon arrival vitals reviewed and patient is tachycardic, afebrile. Neither patient and her are cooperative with history. Patient continually shrugs her shoulders when asked questions. Patient does not meet IVC criteria. She is staying here by choice. Patient was given 1 mg of Ativan anxiety. Patient repeatedly calls me in the room and states that "I think you are lying to me". When I asked her what I was lying about she states that "you are lying about my decreased circulation." I explained to the patient that she has good pulses in all of her extremities her skin is warm has no rashes. Patient states that she needs something additional for anxiety. She is requesting IM Haldol which she states has helped her in the past. Patient was administered Haldol and told she will not receive any further medications. Patient is allowed to leave at any time if she wishes to. - Vital Signs Vital signs: Temp Pulse Resp BP Pulse Ox 98.5 F 115 H 14 144/94 H 100 08/26/18 18:39 08/26/18 18:39 08/26/18 18:39 08/26/18 18:39 08/26/18 18:39 - Laboratory Result Diagrams: 08/26/18 19:50 08/26/18 19:50 Laboratory results interpreted by me: 08/26/18 08/26/18 08/26/18 19:50 19:50 20:10 RDW 15.5 H Seg Neutrophils % 41.4 L Chloride 110 H Carbon Dioxide 18 L Urine Urobilinogen 2.0 H Salicylates < 1.0 L Acetaminophen < 10 L - EKG Interpretation by Me EKG shows normal: Sinus rhythm Rate: Normal Rhythm: NSR Discharge - Discharge Clinical Impression: Anxiety, Nausea, Sore throat Hypertension Qualifiers: Hypertension type: unspecified Qualified Code(s): I10 - Essential (primary) hypertension Depression Qualifiers: Depression Type: unspecified Qualified Code(s): F32.9 - Major depressive disorder, single episode, unspecified Condition: Good Disposition: HOME, SELF-CARE Instructions: Sore Throat ([facility]) Forms: Elevated Blood Pressure
[2018-08-26] MEDS ORDERED: HALOPERIDOL LACTATE INJ 5 MG/1 ML VIAL IM ONE (22:37)
--- NOTE | 2018-08-27 09:29 | ER Document Report ---
Doctor's Note Notes: 08/27/18 09:28 Patient seen and evaluated by myself. She is a 32-year-old female with a history of depression, bipolar disorder, anxiety who presents the emergency department with complaints of worsening depression and anxiety. Patient was medically cleared. Behavioral health was consulted. No issues overnight per nursing. Patient's vital signs are stable. Behavioral health saw and evaluated the patient. They feel she can be discharged home. Patient continues to deny any suicidal or homicidal ideations. Patient to follow with with [facility]. 08/27/18 10:42
[2018-08-27 11:48] VITALS: BP 110/70
--- NOTE | 2018-08-27 12:46 | EKG REPORT ---
SEVERITY:- NORMAL ECG - SINUS RHYTHM : Confirmed by: Naty Ragsdale MD 27-Aug-2018 12:44:47
== END 2018-08-27 11:48 | disposition home or self-care (01) ==
LOC: ER 18:35
DX: I10 Essential (primary) hypertension (principal); F41.9 Anxiety disorder, unspecified; J02.9 Acute pharyngitis, unspecified; Z88.2 Allergy status to sulfonamides; Z88.6 Allergy status to analgesic agent; Z88.8 Allergy status to other drugs, medicaments and biological substances; F31.9 Bipolar disorder, unspecified; R44.3 Hallucinations, unspecified; R11.0 Nausea; J45.909 Unspecified asthma, uncomplicated; F17.210 Nicotine dependence, cigarettes, uncomplicated
CPT/HCPCS: 93005; 99406; 99283; 96372; 36415; 80307 ×4; 85025; 80053; 81001; 93010; J1630

== ENCOUNTER 2018-08-31 04:47 | Emergency (ER) | payer SELFPAY ==
[2018-08-31 05:07] VITALS: BP 127/87
--- NOTE | 2018-08-31 05:14 | ER Document Report ---
ED General - General Chief Complaint: Blood Pressure Problem Stated Complaint: BLOOD PRESSURE ISSUE Time Seen by Provider: 08/31/18 05:01 Notes: Patient is a 32-year-old female well-known to me due to previous ER visits. She presented to the ER just when her blood pressure checked. They informed her that she would have to check into the ER if she wanted her blood pressure checked. She has no other symptoms. I saw her approximately 10 days ago and started her on amlodipine for control of her blood pressure think that her clonidine was causing her blood pressure to spike and then decrease. She says she has been feeling much improved since starting amlodipine. She says she feels well. She says her blood pressure appears to be maintaining good control. Heart rate still bit fast but it frequently is fast when she comes here she has a history of severe anxiety. She has white coat syndrome and was gets anxious when she comes to the hospital. Patient denies any chest pain. No headache. No complaints at this time. TRAVEL OUTSIDE OF THE [place] IN LAST 30 DAYS: No - Related Data Allergies/Adverse Reactions: ketorolac tromethamine [From Toradol] Allergy (Verified 08/31/18 04:56) meperidine HCl [From Demerol] Allergy (Verified 08/31/18 04:56) metoclopramide HCl [From Reglan] Allergy (Verified 08/31/18 04:56) morphine [Morphine] Allergy (Verified 08/31/18 04:56) nalbuphine [From Nubain] Allergy (Verified 08/31/18 04:56) Hives tramadol [Tramadol] Allergy (Verified 08/31/18 04:56) Hives ondansetron HCl [From Zofran] Adverse Reaction (Verified 08/31/18 04:56) VOMITING Past Medical History - Social History Smoking Status: Current Some Day Smoker Frequency of alcohol use: None Drug Abuse: None Family History: Reviewed & Not Pertinent, Arthritis, DM, Hyperlipidemia, Hypertension Patient has suicidal ideation: No Patient has homicidal ideation: No - Past Medical History Cardiac Medical History: Reports: Hx Hypertension Neurological Medical History: Reports: Hx Migraine Renal/ Medical History: Denies: Hx Peritoneal Dialysis Musculoskeletal Medical History: Reports Hx Musculoskeletal Trauma Psychiatric Medical History: Reports: Hx Anxiety, Hx Attention Deficit Hyperactivity Disorder, Hx Bipolar Disorder, Hx Depression, Hx Post Traumatic Stress Disorder Traumatic Medical History: Reports: Hx Fractures - nose Past Surgical History: Reports: Hx Abdominal Surgery - LAPROSCOPY, Hx Gynecologic Surgery - d&c, lap for endometriosis, Hx Nose Surgery - Reconstruction for fracture, Other - facial reconstruction - Immunizations Immunizations up to date: Yes Hx Diphtheria, Pertussis, Tetanus Vaccination: Yes - 2010 Review of Systems - Review of Systems Notes: My Normal Review Basic REVIEW OF SYSTEMS: CONSTITUTIONAL : Denies fever, chills, or sweats. Denies recent illness. CARDIOVASCULAR: Denies chest pain. RESPIRATORY: Denies cough, cold, or chest congestion. Denies shortness of breath, difficulty breathing, or wheezing. NEUROLOGICAL: Denies altered mental status or loss of consciousness. Denies headache. Denies weakness or paralysis or loss of use of either side. Denies problems with gait or speech. Denies sensory or motor loss. PSYCHIATRIC: Some anxiety which she says is improving and she is been taking her medications for. ALL OTHER SYSTEMS REVIEWED AND NEGATIVE. Physical Exam - Vital signs Vitals: Temp Pulse Resp BP Pulse Ox 98.9 F 109 H 20 129/85 H 100 08/31/18 04:56 08/31/18 04:56 08/31/18 04:56 08/31/18 04:56 08/31/18 04:56 - Notes Notes: General Appearance: Well nourished, alert, cooperative, no acute distress, no obvious discomfort. Well-appearing. Vitals: reviewed, See vital signs table. Head: no swelling or tenderness to the head Eyes: PERRL, EOMI, Conjuctiva clear Lungs: No wheezing, No rales, No rhonci, No accessory muscle use, good air exchange bilaterally. Heart: Normal rate, Regular rythm, No murmur, no rub Extremities:good pulses in all extremities, no edema. Skin: warm, dry, appropriate color, no rash Neuro: speech clear, oriented x 3, normal affect, responds appropriately to questions. Normal gait. Symmetric facial movement. Normal movement of all 4 extremities. Course - Re-evaluation Re-evalutation: 08/31/18 05:56 Patient is well-appearing. She is just here for blood pressure check. Blood pressure is much improved as comparison to her previous visits. Says amlodipine appears to be working well for her. She has a appointment next week to follow- up with a primary care doctor. I encouraged her return to ER if she has chest pain, difficulty breathing, or if she feels unwell in any way. Patient agrees with plan and will be discharged home. 08/31/18 05:57 Dictation of this chart was performed using voice recognition software; therefore, there may be some unintended grammatical errors. - Vital Signs Vital signs: Temp Pulse Resp BP Pulse Ox 98.9 F 114 H 20 127/87 H 100 08/31/18 04:56 08/31/18 05:07 08/31/18 04:56 08/31/18 05:07 08/31/18 05:07 Discharge - Discharge Clinical Impression: Blood pressure check Condition: Good Disposition: HOME, SELF-CARE Additional Instructions: Continue to take your blood pressure as prescribed. Please return to the ER if yo have any further concerns.
== END 2018-08-31 05:24 | disposition home or self-care (01) ==
LOC: ER 04:47
DX: I10 Essential (primary) hypertension (principal); F17.200 Nicotine dependence, unspecified, uncomplicated; Z88.6 Allergy status to analgesic agent
CPT/HCPCS: 99283

== ENCOUNTER 2018-09-01 07:45 | Emergency (ER) | payer SELFPAY ==
[2018-09-01 08:00] VITALS: BP 142/99
--- NOTE | 2018-09-01 08:55 | ER Document Report ---
ED General - General Chief Complaint: Vaginal Discharge Stated Complaint: VAGINAL ISSUE Time Seen by Provider: 09/01/18 08:16 Mode of Arrival: Ambulatory Information source: Patient Notes: Patient presents emergency department with complaints of vaginal discharge and odor. Patient reports she has had unprotected sex for the past 3 weeks. Reports she just got . She reports yellow vaginal discharge and a fishy odor. Denies fever vomiting diarrhea. Reports abdominal cramps, reports that sex hurts recently. She also complains of multiple other concerns-- sore throat breast lump left ear pain. TRAVEL OUTSIDE OF THE [place] IN LAST 30 DAYS: No - HPI Onset: Other Onset/Duration: Persistent Quality of pain: No pain Severity: None Pain Level: Denies Associated symptoms: None Exacerbated by: Denies Relieved by: Denies Similar symptoms previously: Yes Recently seen / treated by doctor: No - Related Data Allergies/Adverse Reactions: ketorolac tromethamine [From Toradol] Allergy (Verified 09/01/18 08:57) meperidine HCl [From Demerol] Allergy (Verified 09/01/18 08:57) metoclopramide HCl [From Reglan] Allergy (Verified 09/01/18 08:57) morphine [Morphine] Allergy (Verified 09/01/18 08:57) nalbuphine [From Nubain] Allergy (Verified 09/01/18 08:57) Hives tramadol [Tramadol] Allergy (Verified 09/01/18 08:57) Hives ondansetron HCl [From Zofran] Adverse Reaction (Verified 09/01/18 08:57) VOMITING Past Medical History - General Information source: Patient Last Menstrual Period: 2017 - Social History Smoking Status: Unknown if Ever Smoked Cigarette use (# per day): Yes Frequency of alcohol use: None Drug Abuse: None Lives with: Family Family History: Reviewed & Not Pertinent, Arthritis, DM, Hyperlipidemia, Hypertension Patient has suicidal ideation: No Patient has homicidal ideation: No - Past Medical History Cardiac Medical History: Reports: Hx Hypertension Neurological Medical History: Reports: Hx Migraine Renal/ Medical History: Denies: Hx Peritoneal Dialysis Musculoskeletal Medical History: Reports Hx Musculoskeletal Trauma Psychiatric Medical History: Reports: Hx Anxiety, Hx Attention Deficit Hyperactivity Disorder, Hx Bipolar Disorder, Hx Depression, Hx Post Traumatic Stress Disorder Traumatic Medical History: Reports: Hx Fractures - nose Past Surgical History: Reports: Hx Abdominal Surgery - LAPROSCOPY, Hx Gynecologic Surgery - d&c, lap for endometriosis, Hx Nose Surgery - Reconstruction for fracture, Other - facial reconstruction - Immunizations Immunizations up to date: Yes Hx Diphtheria, Pertussis, Tetanus Vaccination: Yes - 2010 Review of Systems - Review of Systems Notes: Review HPI for review of systems., All other systems negative Physical Exam - Vital signs Vitals: Temp Pulse Resp BP Pulse Ox 97.7 F 106 H 16 142/99 H 100 09/01/18 07:59 09/01/18 07:59 09/01/18 07:59 09/01/18 07:59 09/01/18 07:59 - Notes Notes: PHYSICAL EXAMINATION: GENERAL: Well-appearing and in no acute distress HEAD: Atraumatic, normocephalic. EYES: Pupils equal round, extraocular movements intact, sclera anicteric, conjunctiva are normal. ENT: nares patent, oropharynx clear without exudates. Moist mucous membranes. NECK: Normal range of motion, supple without lymphadenopathy LUNGS: CTAB and equal. No wheezes rales or rhonchi. HEART: Regular rate and rhythm without murmurs BREAST: No nodules, no nipple discharge, no nipple inversion, no lumps noted ABDOMEN: Soft, no tenderness. No guarding, no rebound EXTREMITIES: Normal range of motion NEUROLOGICAL: Cranial nerves grossly intact. Normal sensory/motor exams. PSYCH: Normal mood, normal affect. SKIN: Warm, Dry, normal turgor, no rashes or lesions noted - Genitourinary External exam: Normal Speculum exam: Vaginal discharge - thin clear/whitish discharge along vaginal wall, no odor noted Vaginal bleeding: None Bimanuel exam: Normal - Skin Skin Temperature: Warm Skin Moisture: Dry Skin Color: Normal Course - Re-evaluation Re-evalutation: 09/01/18 09:02 Pelvic completed without problems patient tolerated procedure well. Patient educated on breast lumps. Patient educated on the health department, she verbalized understanding to all information Dictation of this chart was performed using voice recognition software; therefore, there may be some unintended grammatical errors. 09/01/18 11:16 She was instructed on all results to include . She was given a copy of her quant. Denies abdominal pain. Instructed on Flagyl. She was instructed in follow-up with HEALTH POLICY ANALYST in the health department. She cannot wait for STDs results. She was provided with a number to call for the results. Review of records now shows STD negative. - Vital Signs Vital signs: Temp Pulse Resp BP Pulse Ox 97.7 F 106 H 16 142/99 H 100 09/01/18 07:59 09/01/18 07:59 09/01/18 07:59 09/01/18 07:59 09/01/18 07:59 - Laboratory Laboratory results interpreted by me: 09/01/18 09/01/18 08:35 09:40 Beta HCG, Quant 1612.20 H Urine Ascorbic Acid 20 H Urine HCG, Qual POSITIVE H Procedures - Pelvic Exam Pelvic exam Time completed: 08:55 Cultures obtained: Yes Wet prep obtained: Yes Herpes culture obtained: No POC sent to lab: No Foreign body removed: No Bimanual exam performed: Yes Witnessed by: TINY PARISI Discharge - Discharge Clinical Impression: Vaginal discharge, Possible exposure to STD, , Bacterial vaginosis Condition: Stable Disposition: HOME, SELF-CARE Instructions: Azithromycin ([facility]), Chlamydia ([facility]), Gonorrhea ([facility]), [facility], [facility], ([facility]), Rocephin ([facility]), Vaginosis, Bacterial ([facility]) Additional Instructions: *You have been evaluated for vaginal discharge, Possible STD exposure, bacterial vaginosis (BV) *You are *Contact the culture nurse at [phone] for results of your STD Tuesday through Tuesday 8a- 4p *Take medication as prescribed for BV *Follow up with your HEALTH POLICY ANALYST or the health department for recheck and care within one week *Avoid sexual intercourse until follow up *Return to ED for worsening condition, changes, needs, abdominal pain, vaginal bleeding Prescriptions: Metronidazole [Flagyl 500 mg Tablet] 500 mg PO BID #14 tablet Forms: Elevated Blood Pressure Referrals: [facility] [Primary Care Provider] - Follow up in 1 week
[2018-09-01 09:03] LABS: APPEARANCE,URINE CLEAR; BILIRUBIN,URINE NEGATIVE (NEGATIVE); COLOR,URINE STRAW; GLUCOSE, URINE NEGATIVE (NEGATIVE); KETONES,URINE NEGATIVE (NEGATIVE); LEUKOCYTE ESTERASE,URINE NEGATIVE (NEGATIVE); NITRITE,URINE NEGATIVE (NEGATIVE); PROTEIN,URINE NEGATIVE (NEGATIVE); URINE SPECIFIC GRAVITY 1.006; UROBILINOGEN,URINE NEGATIVE mg/dL (<2.0)
[2018-09-01 09:07] LABS: T.VAGINALIS (WET MOUNT) NO TRICHOMONAS SEEN; YEAST (WET MOUNT) NO YEAST SEEN
[2018-09-01 09:08] LABS: BACTERIA (WET MOUNT) 3+ BACTERIA SEEN; RBCS (WET MOUNT) RARE RBCS SEEN; WBCS (WET MOUNT) 3+ WBCS SEEN
[2018-09-01 10:40] LABS: CHLAM PCR NOT DETECTED (NOT DETECT); GON PCR NOT DETECTED (NOT DETECT)
[2018-09-01] MEDS ORDERED: METRONIDAZOLE 500 MG TABLET PO ONE (10:52)
== END 2018-09-01 11:02 | disposition home or self-care (01) ==
LOC: ER 07:45
DX: O23.591 Infection of other part of genital tract in pregnancy, first trimester (principal); B96.89 Other specified bacterial agents as the cause of diseases classified elsewhere; O16.1 Unspecified maternal hypertension, first trimester; Z20.2 Contact with and (suspected) exposure to infections with a predominantly sexual mode of transmission; O99.511 Diseases of the respiratory system complicating pregnancy, first trimester; J02.9 Acute pharyngitis, unspecified; O26.891 Other specified pregnancy related conditions, first trimester; H92.02 Otalgia, left ear; Z72.0 Tobacco use; Z3A.01 Less than 8 weeks gestation of pregnancy; Z88.5 Allergy status to narcotic agent
CPT/HCPCS: 36415; 81001; 81025; 84702; 87210; 87491; 87591; 99283

== ENCOUNTER 2018-09-03 00:28 | Emergency (ER) | payer SELFPAY ==
[2018-09-03] MEDS ORDERED: DIPHENHYDRAMINE HCL 50 MG/ML VIAL IV ONE ×2 (01:54→05:09)
[2018-09-03] MEDS ORDERED: PROMETHAZINE HCL 25 MG TABLET PO ONE (01:55)
[2018-09-03] MEDS ORDERED: NORMAL SALINE 1000 ML 1,000 ML IV ONE (01:55)
--- NOTE | 2018-09-03 02:25 | ER Document Report ---
ED GI/ - General Chief Complaint: Abdominal Pain Stated Complaint: ABDOMINAL PAIN Time Seen by Provider: 09/03/18 01:46 Notes: Patient is a 32-year-old female that comes to the emergency department for chief complaint of sharp left pelvic cramping that started 2 hours ago. She also reports that she has had a lot of nausea, decreased oral intake, and now she has a headache. She denies vomiting, fever, injury. Denies dysuria, vaginal dis charge, vaginal bleeding. She states she is , proximally 4-5 weeks based on last menstrual cycle. Past medical history of hypertension, anxiety, D&C. TRAVEL OUTSIDE OF THE [place] IN LAST 30 DAYS: No - Related Data Allergies/Adverse Reactions: ketorolac tromethamine [From Toradol] Allergy (Verified 09/01/18 08:57) meperidine HCl [From Demerol] Allergy (Verified 09/01/18 08:57) metoclopramide HCl [From Reglan] Allergy (Verified 09/01/18 08:57) morphine [Morphine] Allergy (Verified 09/01/18 08:57) nalbuphine [From Nubain] Allergy (Verified 09/01/18 08:57) Hives tramadol [Tramadol] Allergy (Verified 09/01/18 08:57) Hives ondansetron HCl [From Zofran] Adverse Reaction (Verified 09/01/18 08:57) VOMITING Past Medical History - General Information source: Patient - Social History Smoking Status: Never Smoker Drug Abuse: None Lives with: Family Family History: Reviewed & Not Pertinent, Arthritis, DM, Hyperlipidemia, Hype rtension - Past Medical History Cardiac Medical History: Reports: Hx Hypertension Neurological Medical History: Reports: Hx Migraine Renal/ Medical History: Denies: Hx Peritoneal Dialysis Musculoskeletal Medical History: Reports Hx Musculoskeletal Trauma Psychiatric Medical History: Reports: Hx Anxiety, Hx Attention Deficit Hyperactivity Disorder, Hx Bipolar Disorder, Hx Depression, Hx Post Traumatic Stress Disorder Traumatic Medical History: Reports: Hx Fractures - nose Past Surgical History: Reports: Hx Abdominal Surgery - LAPROSCOPY, Hx Gynecologic Surgery - d&c, lap for endometriosis, Hx Nose Surgery - Reconstruction for fracture, Other - facial reconstruction - Immunizations Immunizations up to date: Yes Hx Diphtheria, Pertussis, Tetanus Vaccination: Yes - 2010 Review of Systems - Review of Systems Constitutional: No symptoms reported EENT: No symptoms reported Cardiovascular: No symptoms reported Respiratory: No symptoms reported Gastrointestinal: See HPI Genitourinary: No symptoms reported Female Genitourinary: See HPI Musculoskeletal: No symptoms reported Skin: No symptoms reported Hematologic/Lymphatic: No symptoms reported Neurological/Psychological: See HPI Physical Exam - Vital signs Vitals: Temp Pulse Resp BP Pulse Ox 98.8 F 110 H 16 139/85 H 100 09/03/18 01:00 09/03/18 01:00 09/03/18 01:00 09/03/18 01:00 09/03/18 01:00 - Notes Notes: GENERAL: Alert, interacts well. No acute distress. Thin HEAD: Normocephalic, atraumatic. EYES: Pupils equal, round, and reactive to light. Extraocular movements intact. ENT: Oral mucosa moist, tongue midline. Oropharynx unremarkable. Airway patent. Nares patent, no nasal septal hematoma, TM's intact. NECK: Full range of motion. Supple. Trachea midline. LUNGS: Clear to auscultation bilaterally, no wheezes, rales, or rhonchi. No respiratory distress. HEART: Regular rate and rhythm. No murmur. No tachycardia on my exam. ABDOMEN: Minimal left lower quadrant tenderness, soft benign abdomen otherwise, no guarding or rigidity. GENITOURINARY: Deferred EXTREMITIES: Moves all 4 extremities spontaneously. No edema, normal radial and dorsalis pedis pulses bilaterally. No cyanosis. BACK: no cervical, thoracic, lumbar midline tenderness. No saddle anesthesia, normal distal neurovascular exam. NEUROLOGICAL: Alert and oriented x3. Normal speech. [cranial nerves II through XII grossly intact]. PSYCH: Easily becomes anxious but she is easily reassured SKIN: Warm, dry, normal turgor. No rashes or lesions noted. Course - Re-evaluation Re-evalutation: Patient was given IV fluids, nausea medication. She states she feels much better afterwards. She has a soft benign abdomen except for minimal left lower quadrant tenderness on exam. This is nonspecific. Urinalysis unremarkable. CBC unremarkable. HCG is elevated, ultrasound showing early intrauterine , right ovary with possible to cyst versus hemorrhagic cyst, I do not believe patient has a hemorrhagic cyst because she is not in any notable distress, she has no vaginal bleeding, and she has no tenderness over the right lower quadrant or right pelvic area. Patient asymptomatic on reevaluation again. Requesting Phenergan for home. I discussed the results in detail, discussed follow-up, expectations, and return precautions. Discussed with at bedside as well. They state understanding and agreement. Vital signs rechecked and unremarkable. Stable at time of discharge. - Vital Signs Vital signs: Temp Pulse Resp BP Pulse Ox 98.9 F 85 16 119/80 100 09/03/18 05:41 09/03/18 05:41 09/03/18 05:41 09/03/18 05:41 09/03/18 05:41 - Laboratory Result Diagrams: 09/03/18 03:15 Laboratory results interpreted by me: 09/03/18 09/03/18 09/03/18 02:30 03:15 03:15 Hgb 11.3 L Hct 34.4 L RDW 14.7 H Seg Neutrophils % 41.4 L Beta HCG, Quant 3262.70 H Urine Urobilinogen 2.0 H Discharge - Discharge Clinical Impression: Abdominal cramping affecting , Nausea Condition: Stable Disposition: HOME, SELF-CARE Additional Instructions: Your ultrasound shows early without any concerning findings related to the . There appears to be 2 small cysts on the right side, this can be followed up with [facility] with additional ultrasounds for monitoring. Take Phenergan for nausea if needed. Return for any concerning symptoms including severe pain, heavy bleeding, passing out, fever/chills, or any other concerning symptoms. Prescriptions: Promethazine HCl [Phenergan 25 mg Tablet] 25 mg PO Q6H PRN #20 tablet PRN Reason: Referrals: [facility] [Provider Group] - Follow up as needed
[2018-09-03 03:33] LABS: ABSOLUTE EOSINOPHILS # (AUTO) 0.2 10^3/uL (0.0-0.6); ABSOLUTE LYMPHOCYTES (AUTO) 1.9 10^3/uL (0.5-4.7); ABSOLUTE MONOCYTES (AUTO) 0.4 10^3/uL (0.1-1.4); ABSOLUTE NEUT (AUTO) 1.8 10^3/uL (1.7-8.2); BASOPHILS % (AUTO) 0.5 % (0-2); EOSINOPHILS % (AUTO) 5.8 % (0-6); HEMATOCRIT 34.4 % (36.0-47.0); HEMOGLOBIN 11.3 g/dL (12.0-15.5); LYMPHOCYTES % (AUTO) 43.5 % (13-45); MEAN CORPUSCULAR HEMOGLOBIN 27.4 pg (27.0-33.4); MEAN CORPUSCULAR HGB CONC 32.8 g/dL (32.0-36.0); MEAN CORPUSCULAR VOLUME 84 fl (80-97); MONOCYTES % (AUTO) 8.8 % (3-13); PLATELET COUNT 192 10^3/uL (150-450); RED BLOOD COUNT 4.12 10^6/uL (3.72-5.28); RED CELL DISTRIBUTION WIDTH 14.7 % (11.5-14.0); SEGMENTED NEUTROPHILS % (AUTO) 41.4 % (42-78); TOTAL CELLS COUNTED % (AUTO) 100 %; WHITE BLOOD COUNT 4.3 10^3/uL (4.0-10.5)
[2018-09-03 03:41] LABS: AMORPHOUS SEDIMENT,URINE TRACE /HPF; APPEARANCE,URINE CLOUDY; BILIRUBIN,URINE NEGATIVE (NEGATIVE); COLOR,URINE YELLOW; GLUCOSE, URINE NEGATIVE (NEGATIVE); KETONES,URINE NEGATIVE (NEGATIVE); LEUKOCYTE ESTERASE,URINE NEGATIVE (NEGATIVE); NITRITE,URINE NEGATIVE (NEGATIVE); PROTEIN,URINE NEGATIVE (NEGATIVE)
--- NOTE | 2018-09-03 05:01 | RADIOLOGY REPORT (SQ) ---
CLINICAL DATA: 32-year-old female with left pelvic pain, positive hCG. TECHNICAL DATA: Transvaginal imaging of the pelvis was performed on 09/03/2018 at 3:55 AM. FINDINGS: Comparison is made with a previous pelvic ultrasound performed on 01/25/2018. The uterus is normal in size, shape and echogenicity and measures 8.0 x 6.4 x 4.7 cm. There is a small focal fluid collection in the endometrial canal consistent with a small gestational sac. This measures approximately 0.5 cm in diameter corresponding to a five week two day . There is no evidence of a yolk sac or pole. The cervical length measures 3 cm. The right ovary is not identified on this examination. There is a complex adnexal mass in the right adnexal region. There is a septated mixed echogenicity mass with a lacy appearance suggesting a hemorrhagic cyst. This is an adjacent sharply marginated anechoic mass posteriorly with enhanced through transmission by a thin septation. There is also a smaller anechoic mass with enhanced through transmission of sound more anteriorly by a thin septation. The overall size of this adnexal mass measures approximately 5.8 x 4.6 cm. Doppler imaging reveals color Doppler flow along the periphery of this mass. The left ovary measures 2.6 x 1.9 x 1.5 cm. The left ovary is grossly normal in size, shape and echogenicity. Doppler imaging demonstrates normal pulsed and color Doppler flow. There is a small amount of free fluid in the pelvis. IMPRESSION: 1. Small intrauterine gestational sac without evidence of a yolk sac or pole. The overall size of the gestational sac corresponds to a gestational age of five weeks two days and an estimated due date of 05/04/2019. 2. Complex right adnexal mass lesion likely representing a combination of a hemorrhagic cyst and two smaller simple appearing cysts. 3. Grossly normal sonographic evaluation of the left ovary. 4. Small volume of free fluid in the pelvis.
[2018-09-03 05:59] VITALS: BP 119/80
== END 2018-09-03 05:53 | disposition home or self-care (01) ==
LOC: ER 00:28
DX: O26.899 Other specified pregnancy related conditions, unspecified trimester (principal); R10.2 Pelvic and perineal pain; R10.814 Left lower quadrant abdominal tenderness; R11.0 Nausea; R51 Headache; O16.9 Unspecified maternal hypertension, unspecified trimester; Z3A.00 Weeks of gestation of pregnancy not specified; Z88.8 Allergy status to other drugs, medicaments and biological substances; Z88.5 Allergy status to narcotic agent
CPT/HCPCS: 96376; 99284; 96374; 86900; 86901; 36415; 84702; 85025; 81001; 76817; 93976; J1200; J7030

== ENCOUNTER 2018-09-24 07:25 | Emergency (ER) | payer SELFPAY ==
[2018-09-24] MEDS ORDERED: PROMETHAZINE HCL INJ 25 MG/1 ML VIAL IM ONE (08:25)
[2018-09-24] MEDS ORDERED: NORMAL SALINE 1000 ML 1,000 ML IV ONE (08:25)
[2018-09-24] MEDS ORDERED: DIPHENHYDRAMINE HCL 50 MG CAPSULE PO ONE (08:25)
--- NOTE | 2018-09-24 08:29 | ER Document Report ---
ED General - General Chief Complaint: Pelvic Pain Stated Complaint: ABDOMINAL PAIN Time Seen by Provider: 09/24/18 08:13 TRAVEL OUTSIDE OF THE [place] IN LAST 30 DAYS: No - HPI Notes: Patient is a 32-year-old female approximately 8 weeks and 2 weeks who presents emergency department complaining of continued right lower pelvic pain, intermittent nausea, and occasional headache. Patient states that the pelvic pain has been there since she was here on September 03 and was diagnosed with a cyst on the right side. Patient states that she has not had any vaginal discharge, odor, or bleeding. The pain does not radiate. She is still able to eat and drink without difficulty, but does have a decreased p.o. intake. She is urinating normally aside from increased frequency and having normal bowel movements. Patient states that she would like an ultrasound and her urine tested as well as Phenergan which she is already prescribed for . She has not been seen by an [facility] yet. Patient states that she has to be seen in [place] as [facility]. No other concerns or complaints. Denies any fever, neck pain, changes in vision/speech/mentation/hearing, URI, sore throat, chest pain, palpitations, syncope, cough, shortness of breath, wheeze, dyspnea, vomiting/diarrhea, urinary retention, dysuria, hematuria, loss of control of bowel or bladder, numbness/ tingling, saddle anesthesia, muscle paralysis/weakness, or rash. - Related Data Allergies/Adverse Reactions: ketorolac tromethamine [From Toradol] Allergy (Verified 09/24/18 07:27) meperidine HCl [From Demerol] Allergy (Verified 09/24/18 07:27) metoclopramide HCl [From Reglan] Allergy (Verified 09/24/18 07:27) morphine [Morphine] Allergy (Verified 09/24/18 07:27) nalbuphine [From Nubain] Allergy (Verified 09/24/18 07:27) Hives tramadol [Tramadol] Allergy (Verified 09/24/18 07:27) Hives ondansetron HCl [From Zofran] Adverse Reaction (Verified 09/24/18 07:27) VOMITING Past Medical History - Social History Smoking Status: Current Every Day Smoker Frequency of alcohol use: None Drug Abuse: None Family History: Reviewed & Not Pertinent, Arthritis, DM, Hyperlipidemia, Hypertension Patient has suicidal ideation: No Patient has homicidal ideation: No - Past Medical History Cardiac Medical History: Reports: Hx Hypertension Neurological Medical History: Reports: Hx Migraine Renal/ Medical History: Denies: Hx Peritoneal Dialysis Musculoskeletal Medical History: Reports Hx Musculoskeletal Trauma Psychiatric Medical History: Reports: Hx Anxiety, Hx Attention Deficit Hyperactivity Disorder, Hx Bipolar Disorder, Hx Depression, Hx Post Traumatic Stress Disorder Traumatic Medical History: Reports: Hx Fractures - nose Past Surgical History: Reports: Hx Abdominal Surgery - LAPROSCOPY, Hx Gynecologic Surgery - d&c, lap for endometriosis, Hx Nose Surgery - Reconstruction for fracture, Other - facial reconstruction - Immunizations Immunizations up to date: Yes Hx Diphtheria, Pertussis, Tetanus Vaccination: Yes - 2010 Review of Systems - Review of Systems -: Yes All other systems reviewed and negative Physical Exam - Vital signs Vitals: Temp Pulse Resp BP Pulse Ox 98.7 F 91 16 136/86 H 100 09/24/18 07:30 09/24/18 07:30 09/24/18 07:30 09/24/18 07:30 09/24/18 07:30 - Notes Notes: PHYSICAL EXAMINATION: GENERAL: Well-appearing, well-nourished and in no acute distress. HEAD: Atraumatic, normocephalic. EYES: Pupils equal round and reactive to light, extraocular movements intact, sclera anicteric, conjunctiva are normal. ENT: EAC clear b/l. TM's intact b/l without erythema, fluid, or perforation. Nares patent and without discharge. oropharynx clear without exudates. No tonsilar hypertrophy or erythema. Moist mucous membranes. No sinus tenderness. NECK: Normal range of motion, supple without lymphadenopathy LUNGS: Breath sounds clear to auscultation bilaterally and equal. No wheezes rales or rhonchi. HEART: Regular rate and rhythm without murmurs, rubs, gallops. ABDOMEN: Soft, nondistended abdomen. No guarding, no rebound. No masses appreciated. Normal bowel sounds present. No CVA tenderness bilaterally. + mild tenderness rt lower pelvic area. No tenderness at [place]. Musculoskeletal: FROM to passive/active. Strength 5+/5. Extremities: No cyanosis, clubbing, or edema b/l. Peripheral pulses 2+. Capillary refill less than 3 seconds. NEUROLOGICAL: Cranial nerves grossly intact. Normal speech, normal gait. Normal sensory, motor exams PSYCH: Normal mood, normal affect. SKIN: Warm, Dry, normal turgor, no rashes or lesions noted. Course - Re-evaluation Re-evalutation: 09/24/18 11:02 Patient is an afebrile, well-hydrated, 32-year-old female who presents to the ED with rt pelvic pain, ovarian cysts (hemorrhagic smaller, simple 3.9cm), otalgia unspecified, and nausea. Vitals are acceptable without any significant tachycardia, tachypnea, or hypoxia. PE is otherwise unremarkable. HCG appropriate. TVUS shows evidence of the gest sac w/o sac measuring approx 7wk 5 days. No subchorionic hemorrhage noted. UA unremarkable. Patient is nontoxic-appearing is tolerating p.o. without any difficulties. No other labs or imaging warranted at this time based on H&P. Pt was given nausea meds and fluids. Low suspicion/risk for acute appendicitis, bowel obstruction, acute cholecystitis, acute cholangitis, perforated diverticulitis, incarcerated hernia, pancreatitis, perforated ulcer, peritonitis, sepsis, pelvic inflammatory disease, ectopic , tubo-ovarian abscess, ovarian torsion, or other systemic emergent condition at this time. Patient is aware that her condition can change from initial presentation and she needs to monitor symptoms closely and seek medical attention if any acute changes. Pt has phenergan at home. Conservative measures otherwise for symptoms. Recheck with your PCM/OBGYN in 3- 5 days. Return to the ED with any worsening/concerning symptoms otherwise as reviewed in discharge. Patient is in agreement. - Vital Signs Vital signs: Temp Pulse Resp BP Pulse Ox 98.7 F 91 16 136/86 H 100 09/24/18 07:30 09/24/18 07:30 09/24/18 07:30 09/24/18 07:30 09/24/18 07:30 - Laboratory Laboratory results interpreted by me: 09/24/18 09/24/18 09:10 09:35 Beta HCG, Quant 906624.00 H Ur Leukocyte Esterase TRACE H Discharge - Discharge Clinical Impression: Pelvic pain, Nausea Ovarian cyst Qualifiers: Laterality: right Qualified Code(s): N83.201 - Unspecified ovarian cyst, right side Condition: Stable Disposition: HOME, SELF-CARE Additional Instructions: Maintain fluid intake Proper hygienic technique Keep the skin clean Tylenol as needed F/u with your PCM/OBGYN in 3-5 days for a recheck Return to the ED with any development of BERGER/fever, trouble with vision, eye redness, worsening pain, urethral discharge, urinary retention, blood in the urine, flank pain, abdominal pain, n/v, Chest Pain, shortness of breath, joint pains, trouble breathing, or any other worsening/concerning symptoms as needed otherwise. Forms: Elevated Blood Pressure Referrals: [facility] [Provider Group] - Follow up in 3-5 days
[2018-09-24] MEDS ORDERED: DIPHENHYDRAMINE HCL 50 MG/ML VIAL IM ONE (08:46)
[2018-09-24 09:41] LABS: APPEARANCE,URINE CLEAR; BILIRUBIN,URINE NEGATIVE (NEGATIVE); COLOR,URINE STRAW; GLUCOSE, URINE NEGATIVE (NEGATIVE); KETONES,URINE NEGATIVE (NEGATIVE); LEUKOCYTE ESTERASE,URINE TRACE (NEGATIVE); NITRITE,URINE NEGATIVE (NEGATIVE); PROTEIN,URINE NEGATIVE (NEGATIVE); URINE SPECIFIC GRAVITY 1.003; UROBILINOGEN,URINE NEGATIVE mg/dL (<2.0)
--- NOTE | 2018-09-24 10:30 | RADIOLOGY REPORT (SQ) ---
EXAM DESCRIPTION: U/S OB TRANSVAG W/DOPPLER COMPLETED DATE/TIME: 09/24/2018 10:16 am REASON FOR STUDY: pelvic pain, , h/o cysts rt side COMPARISON: 09/03/2018 TECHNIQUE: Transvaginal static and realtime grayscale images acquired of the pelvis. Additional leon cted spectral and color Doppler images recorded. All images stored on PACs. bHCG: Pending. CLINICAL DATES: 04/30/2019 LIMITATIONS: None. FINDINGS: FETUS: Single Living intrauterine . ULTRASOUND EGA: 7 weeks 5 days ULTRASOUND KRISTEN: 05/07/2019 EFW: Not applicable less than 20 weeks. CRL: 1.4 cm FHR: 160 beats per minute. SURVEY: Too early to assess. AMNIOTIC FLUID: Adequate amount. PLACENTA: Not yet developed due to early gestation. SUBCHORIONIC BLEED: No SIZE OF BLEED: Not applicable. UTERUS: No masses. No anomalies. CERVICAL LENGTH: 3.7 cm Closed. RIGHT ADNEXA: Normal ovary with normal vascular flow. No adnexal free fluid. Multiple cysts. Largest is a simple cyst measuring 3.9 cm. The previously described complex assesse d, presumably hemorrhagic, has decreased in size with less internal echoes. Some free fluid. LEFT ADNEXA: Ovary not identified due to poor acoustical window. No adnexal free fluid. No adnexal masses. FREE FLUID: None. OTHER: No other significant finding. IMPRESSION: LIVING INTRAUTERINE . EGA 7 weeks 5 days Decrease in size of the right-sided hemorrhagic cyst. Large simple cyst measures 3.9 cm. Trimester of : First - 0 to 13 weeks. TECHNICAL DOCUMENTATION: JOB ID: [id number]- All Rights Reserved rev Reading location - IP/workstation name: [email or web address]
[2018-09-24 11:26] VITALS: BP 111/63
== END 2018-09-24 11:24 | disposition home or self-care (01) ==
LOC: ER 07:25
DX: O34.81 Maternal care for other abnormalities of pelvic organs, first trimester (principal); N83.201 Unspecified ovarian cyst, right side; O26.91 Pregnancy related conditions, unspecified, first trimester; R10.2 Pelvic and perineal pain; R11.0 Nausea; R51 Headache; Z3A.08 8 weeks gestation of pregnancy; O99.331 Smoking (tobacco) complicating pregnancy, first trimester
CPT/HCPCS: 99284; 96372; 96360; 36415; 87086; 84702; 81001; 76817; 93976; J1200; J2550; J7030

== ENCOUNTER 2018-10-07 02:08 | Emergency (ER) | payer SELFPAY ==
[2018-10-07] MEDS ORDERED: ACETAMINOPHEN 325 MG TABLET PO ONE (02:53)
[2018-10-07] MEDS ORDERED: NORMAL SALINE 1000 ML 1,000 ML IV ONE (02:53)
[2018-10-07 03:18] LABS: ABSOLUTE EOSINOPHILS # (AUTO) 0.2 10^3/uL (0.0-0.6); ABSOLUTE LYMPHOCYTES (AUTO) 1.9 10^3/uL (0.5-4.7); ABSOLUTE MONOCYTES (AUTO) 0.6 10^3/uL (0.1-1.4); ABSOLUTE NEUT (AUTO) 3.6 10^3/uL (1.7-8.2); BASOPHILS % (AUTO) 0.4 % (0-2); EOSINOPHILS % (AUTO) 3.5 % (0-6); HEMATOCRIT 33.9 % (36.0-47.0); HEMOGLOBIN 11.5 g/dL (12.0-15.5); LYMPHOCYTES % (AUTO) 30.1 % (13-45); MEAN CORPUSCULAR HEMOGLOBIN 28.3 pg (27.0-33.4); MEAN CORPUSCULAR HGB CONC 33.9 g/dL (32.0-36.0); MEAN CORPUSCULAR VOLUME 84 fl (80-97); MONOCYTES % (AUTO) 9.2 % (3-13); PLATELET COUNT 195 10^3/uL (150-450); RED BLOOD COUNT 4.05 10^6/uL (3.72-5.28); RED CELL DISTRIBUTION WIDTH 15.5 % (11.5-14.0); SEGMENTED NEUTROPHILS % (AUTO) 56.8 % (42-78); TOTAL CELLS COUNTED % (AUTO) 100 %; WHITE BLOOD COUNT 6.3 10^3/uL (4.0-10.5)
[2018-10-07 03:34] LABS: ALANINE AMINOTRANSFERASE 10 U/L (9-52); ALBUMIN 5.1 g/dL (3.5-5.0); ALKALINE PHOSPHATASE 53 U/L (38-126); ANION GAP 13 (5-19); ASPARTATE AMINO TRANSFERASE 19 U/L (14-36); BILIRUBIN,DIRECT 0.3 mg/dL (0.0-0.4); BILIRUBIN,TOTAL 0.5 mg/dL (0.2-1.3); BLOOD UREA NITROGEN 8 mg/dL (7-20); CALCIUM 9.8 mg/dL (8.4-10.2); CARBON DIOXIDE 21 mmol/L (22-30); CHLORIDE 108 mmol/L (98-107); GLUCOSE 80 mg/dL (75-110); POTASSIUM 3.9 mmol/L (3.6-5.0); SODIUM 142.1 mmol/L (137-145); TOTAL PROTEIN 8.3 g/dL (6.3-8.2)
[2018-10-07] MEDS ORDERED: PROMETHAZINE HCL INJ 25 MG/1 ML VIAL IV ONE (03:34)
[2018-10-07 03:54] LABS: APPEARANCE,URINE CLEAR; BILIRUBIN,URINE NEGATIVE (NEGATIVE); COLOR,URINE YELLOW; GLUCOSE, URINE NEGATIVE (NEGATIVE); KETONES,URINE NEGATIVE (NEGATIVE); LEUKOCYTE ESTERASE,URINE TRACE (NEGATIVE); NITRITE,URINE NEGATIVE (NEGATIVE); PROTEIN,URINE NEGATIVE (NEGATIVE); URINE SPECIFIC GRAVITY 1.015
--- NOTE | 2018-10-07 05:02 | ER Document Report ---
ED Flu Like - General Chief Complaint: Flu Symptoms Stated Complaint: FLU SYMPTOMS Time Seen by Provider: 10/07/18 02:53 Notes: Patient is a 32-year-old female presents to the emergency department for generalized body aches, cough, congestion, subjective fever for the last 24 hours. Patient states she vomited 2 days ago and has had no vomiting since but still feels nauseous. Patient states she is and is what she believes to be 4 months . Patient is unsure of her last menstrual period. Patient is denying any vaginal discharge to include bleeding, abdominal pain, abdominal cramping. Patient is admitting to some urinary urgency states she is currently on Flagyl for "an STD I caught." Patient states she does have a prescription for at home 5 mg but has not taken it for her generalized nausea and vomiting. Past medical history: Hypertension, ADHD, insomnia, anxiety Medications: Amlodipine Allergies: Toradol, morphine, Zofran, Compazine, Reglan, Demerol TRAVEL OUTSIDE OF THE U.S. IN LAST 30 DAYS: No - Related Data Allergies/Adverse Reactions: ketorolac tromethamine [From Toradol] Allergy (Verified 09/24/18 07:27) meperidine HCl [From Demerol] Allergy (Verified 09/24/18 07:27) metoclopramide HCl [From Reglan] Allergy (Verified 09/24/18 07:27) morphine [Morphine] Allergy (Verified 09/24/18 07:27) nalbuphine [From Nubain] Allergy (Verified 09/24/18 07:27) Hives tramadol [Tramadol] Allergy (Verified 09/24/18 07:27) Hives ondansetron HCl [From Zofran] Adverse Reaction (Verified 09/24/18 07:27) VOMITING Past Medical History - General Information source: Patient - Social History Smoking Status: Former Smoker Chew tobacco use (# tins/day): No Frequency of alcohol use: None Drug Abuse: None Family History: Reviewed & Not Pertinent, Arthritis, DM, Hyperlipidemia, Hypertension Patient has suicidal ideation: No Patient has homicidal ideation: No - Past Medical History Cardiac Medical History: Reports: Hx Hypertension Neurological Medical History: Reports: Hx Migraine Renal/ Medical History: Denies: Hx Peritoneal Dialysis Musculoskeletal Medical History: Reports Hx Musculoskeletal Trauma Psychiatric Medical History: Reports: Hx Anxiety, Hx Attention Deficit Hyperactivity Disorder, Hx Bipolar Disorder, Hx Depression, Hx Post Traumatic Stress Disorder Traumatic Medical History: Reports: Hx Fractures - nose Past Surgical History: Reports: Hx Abdominal Surgery - LAPROSCOPY, Hx Gynecologic Surgery - d&c, lap for endometriosis, Hx Nose Surgery - Reconstruction for fracture, Other - facial reconstruction - Immunizations Immunizations up to date: Yes Hx Diphtheria, Pertussis, Tetanus Vaccination: Yes - 2010 Review of Systems - Review of Systems Constitutional: See HPI EENT: See HPI Cardiovascular: No symptoms reported Respiratory: See HPI Gastrointestinal: See HPI Genitourinary: See HPI Female Genitourinary: See HPI Musculoskeletal: No symptoms reported Skin: No symptoms reported Hematologic/Lymphatic: No symptoms reported Neurological/Psychological: No symptoms reported Physical Exam - Vital signs Vitals: Temp Pulse Resp BP Pulse Ox 97.8 F 107 H 16 127/79 H 100 10/07/18 02:17 10/07/18 02:17 10/07/18 02:17 10/07/18 02:17 10/07/18 02:17 - Notes Notes: GENERAL: Alert, interacts well. No acute distress. HEAD: Normocephalic, atraumatic. EYES: Pupils equal, round, and reactive to light. Extraocular movements intact. ENT: Oral mucosa moist, tongue midline. Nares patent, TM's intact, nonbulging, nonerythematous bilaterally. Pharynx within normal limits, no palatal petechiae noted, tonsils +1 bilaterally NECK: Full range of motion. Supple. Trachea midline. No lymphadenopathy appreciated LUNGS: Clear to auscultation bilaterally, no wheezes, rales, or rhonchi. No respiratory distress. HEART: Regular rate and rhythm. No murmur ABDOMEN: Soft, non-tender. Non-distended. Bowel sounds present in all 4 quadrants. EXTREMITIES: Moves all 4 extremities spontaneously. No edema, normal radial and dorsalis pedis pulses bilaterally. No cyanosis. BACK: no cervical, thoracic, lumbar midline tenderness. No saddle anesthesia, normal distal neurovascular exam. NEUROLOGICAL: Alert and oriented x3. Normal speech. cranial nerves II through XII grossly intact PSYCH: Normal affect, normal mood. SKIN: Warm, dry, normal turgor. No rashes or lesions noted. Course - Re-evaluation Re-evalutation: 10/07/18 05:04 Patient's labs show no signs of leukocytosis, urine has a specific gravity of 1.015 with negative ketones no signs of urinary tract infection. Patient was treated with Phenergan in the emergency department for generalized nausea and a fluid bolus was administered. Patient is refusing to take oral Tylenol. Patient states she overall feels better and is ready for discharge. - Vital Signs Vital signs: Temp Pulse Resp BP Pulse Ox 97.8 F 107 H 16 127/79 H 100 10/07/18 02:17 10/07/18 02:17 10/07/18 02:17 10/07/18 02:17 10/07/18 02:17 - Laboratory Result Diagrams: 10/07/18 03:10 10/07/18 03:10 Laboratory results interpreted by me: 10/07/18 10/07/18 10/07/18 03:10 03:10 03:40 Hgb 11.5 L Hct 33.9 L RDW 15.5 H Chloride 108 H Carbon Dioxide 21 L Creatinine 0.46 L Total Protein 8.3 H Albumin 5.1 H Urine Urobilinogen 2.0 H Ur Leukocyte Esterase TRACE H Discharge - Discharge Clinical Impression: Nausea Upper respiratory infection Qualifiers: URI type: unspecified viral URI Qualified Code(s): J06.9 - Acute upper respiratory infection, unspecified Condition: Stable Disposition: HOME, SELF-CARE Instructions: Viral Syndrome ([facility]), Upper Respiratory Illness ([facility]), Nausea or Vomiting, Nonspecific ([facility]) Additional Instructions: As we discussed you have been seen and treated in the emergency department for your generalized nausea and an upper respiratory infection. Upper respiratory infections are unfortunately caused by viruses and do not respond to antibiotics. Please continue to take [id number] Tylenol at home for your generalized body aches and fevers. Please stay well-hydrated and follow-up with your primary care provider or [facility] in the next 24-48 hours. Please return to the emergency room should you have any other concerning symptoms. Forms: Return to Work
[2018-10-07 05:23] VITALS: BP 122/65
== END 2018-10-07 05:23 | disposition home or self-care (01) ==
LOC: ER 02:08
DX: O26.92 Pregnancy related conditions, unspecified, second trimester (principal); M79.10 Myalgia, unspecified site; R11.0 Nausea; Z3A.16 16 weeks gestation of pregnancy; Z88.6 Allergy status to analgesic agent
CPT/HCPCS: 99283; 96361; 96374; 36415; 85025; 80053; 81001; J2550; J7030

== ENCOUNTER 2018-10-11 21:56 | Emergency (ER) | payer SELFPAY ==
--- NOTE | 2018-10-11 23:58 | ER Document Report ---
ED Medical Screen (RME) - General Chief Complaint: Abdominal Pain Stated Complaint: ABDOMINAL PAIN Time Seen by Provider: 10/11/18 23:53 Notes: 32-year-old -[place] female who is here with abdominal pain. Several visits for the same. Low abdominal pain. Having a thick vaginal discharge. I have treated and performed a rapid initial assessment of this patient. A comprehensive ED assessment and evaluation of the patient, analysis of test results and completion of medical decision making process will be conducted by additional ED providers. PHYSICAL EXAMINATION: GENERAL: Well-appearing, well-nourished and in no acute distress. A&Ox4. Answers questions appropriately. LUNGS: Breath sounds clear to auscultation bilaterally and equal. No wheezes rales or rhonchi. HEART: Regular rate and rhythm without murmurs, rubs, gallops. ABDOMEN: Soft, nondistended abdomen. No guarding, no rebound. Normal bowel sounds present. No CVA tenderness bilaterally. + mild epigastric tenderness (cannot elicit thorough abd exam w/o table, however). Extremities: No cyanosis, clubbing, or edema b/l. NEUROLOGICAL: Normal speech, normal gait. PSYCH: Normal mood, normal affect. TRAVEL OUTSIDE OF THE [place] IN LAST 30 DAYS: No - Related Data Allergies/Adverse Reactions: ketorolac tromethamine [From Toradol] Allergy (Verified 09/24/18 07:27) meperidine HCl [From Demerol] Allergy (Verified 09/24/18 07:27) metoclopramide HCl [From Reglan] Allergy (Verified 09/24/18 07:27) morphine [Morphine] Allergy (Verified 09/24/18 07:27) nalbuphine [From Nubain] Allergy (Verified 09/24/18 07:27) Hives tramadol [Tramadol] Allergy (Verified 09/24/18 07:27) Hives ondansetron HCl [From Zofran] Adverse Reaction (Verified 09/24/18 07:27) VOMITING Past Medical History - Social History Family history: None - Past Medical History Cardiac Medical History: Reports: Hx Hypertension Neurological Medical History: Reports: Hx Migraine Renal/ Medical History: Denies: Hx Peritoneal Dialysis Musculoskeltal Medical History: Reports Hx Musculoskeletal Trauma Psychiatric Medical History: Reports: Hx Anxiety, Hx Attention Deficit Hyperactivity Disorder, Hx Bipolar Disorder, Hx Depression, Hx Post Traumatic Stress Disorder Traumatic Medical History: Reports: Hx Fractures - nose Past Surgical History: Reports: Hx Abdominal Surgery - LAPROSCOPY, Hx Gynecologic Surgery - d&c, lap for endometriosis, Hx Nose Surgery - Reconstruction for fracture, Other - facial reconstruction - Immunizations Immunizations up to date: Yes Hx Diphtheria, Pertussis, Tetanus Vaccination: Yes - 2010 Physical Exam - Vital signs Vitals: Temp Pulse Resp BP Pulse Ox 98.9 F 103 H 15 134/87 H 100 10/11/18 22:11 10/11/18 22:11 10/11/18 22:11 10/11/18 22:11 10/11/18 22:11 Course - Vital Signs Vital signs: Temp Pulse Resp BP Pulse Ox 98.9 F 103 H 15 134/87 H 100 10/11/18 22:11 10/11/18 22:11 10/11/18 22:11 10/11/18 22:11 10/11/18 22:11
[2018-10-12] MEDS ORDERED: PROMETHAZINE HCL INJ 25 MG/1 ML VIAL IM ONE (00:02)
[2018-10-12 00:25] LABS: APPEARANCE,URINE CLEAR; BILIRUBIN,URINE NEGATIVE (NEGATIVE); COLOR,URINE YELLOW; GLUCOSE, URINE NEGATIVE (NEGATIVE); KETONES,URINE NEGATIVE (NEGATIVE); LEUKOCYTE ESTERASE,URINE SMALL (NEGATIVE); NITRITE,URINE NEGATIVE (NEGATIVE); PROTEIN,URINE NEGATIVE (NEGATIVE); URINE SPECIFIC GRAVITY 1.012; UROBILINOGEN,URINE NEGATIVE mg/dL (<2.0)
[2018-10-12 00:25] LABS: ABSOLUTE EOSINOPHILS # (AUTO) 0.2 10^3/uL (0.0-0.6); ABSOLUTE LYMPHOCYTES (AUTO) 1.7 10^3/uL (0.5-4.7); ABSOLUTE MONOCYTES (AUTO) 0.5 10^3/uL (0.1-1.4); ABSOLUTE NEUT (AUTO) 2.9 10^3/uL (1.7-8.2); BASOPHILS % (AUTO) 0.3 % (0-2); HEMATOCRIT 31.6 % (36.0-47.0); HEMOGLOBIN 10.6 g/dL (12.0-15.5); LYMPHOCYTES % (AUTO) 32.7 % (13-45); MEAN CORPUSCULAR HEMOGLOBIN 28.4 pg (27.0-33.4); MEAN CORPUSCULAR HGB CONC 33.7 g/dL (32.0-36.0); MEAN CORPUSCULAR VOLUME 84 fl (80-97); MONOCYTES % (AUTO) 9.2 % (3-13); PLATELET COUNT 213 10^3/uL (150-450); RED BLOOD COUNT 3.74 10^6/uL (3.72-5.28); RED CELL DISTRIBUTION WIDTH 15.3 % (11.5-14.0); SEGMENTED NEUTROPHILS % (AUTO) 54.8 % (42-78); TOTAL CELLS COUNTED % (AUTO) 100 %; WHITE BLOOD COUNT 5.3 10^3/uL (4.0-10.5)
[2018-10-12 01:41] LABS: ALANINE AMINOTRANSFERASE 12 U/L (9-52); ALBUMIN 4.5 g/dL (3.5-5.0); ALKALINE PHOSPHATASE 43 U/L (38-126); ANION GAP 13 (5-19); ASPARTATE AMINO TRANSFERASE 17 U/L (14-36); BILIRUBIN,DIRECT 0.2 mg/dL (0.0-0.4); BILIRUBIN,TOTAL 0.4 mg/dL (0.2-1.3); BLOOD UREA NITROGEN 7 mg/dL (7-20); CALCIUM 9.4 mg/dL (8.4-10.2); CARBON DIOXIDE 21 mmol/L (22-30); CHLORIDE 105 mmol/L (98-107); GLUCOSE 92 mg/dL (75-110); LIPASE 44.7 U/L (23-300); POTASSIUM 3.7 mmol/L (3.6-5.0); SODIUM 139.1 mmol/L (137-145); TOTAL PROTEIN 7.2 g/dL (6.3-8.2)
--- NOTE | 2018-10-12 03:38 | RADIOLOGY REPORT (SQ) ---
EXAM DESCRIPTION: US LESS THAN 14 WEEKS COMPLETED DATE/TME: 10/11/2018 23:56 CLINICAL HISTORY: 32 years, Female, abd pain in early preg COMPARISON: 09/24/2018 ultrasound TECHNIQUE: Transverse and longitudinal transabdominal sonographic images of the pelvis in a first trimester patient LIMITATIONS: None. FINDINGS: The uterus measures 10.9 x 9.3 x 8.3 cm. There is a single, live intrauterine gestation. Current ultrasound age is 10 weeks 3 days based on a mean crown-rump length of 3.48 cm. Heart tones were obtained at 171 bpm. The yolk sac is also visualized. The maternal left ovary is not well seen. There is no free fluid. The maternal right ovary again demonstrates a 3.9 x 4.7 cm cyst. This appears somewhat complex with internal echoes. On the prior exam, approximate measurement of the cyst was 3.9 cm. New from the prior exam is a 3.3 x 1.1 x 2.2 cm hypoechoic area adjacent to the gestational sac likely reflecting subchorionic hemorrhage. IMPRESSION: New from the prior exam is a hypoechoic area adjacent to the gestational sac likely reflecting subchorionic hemorrhage. Single, live intrauterine gestation with current ultrasound age 10 weeks 3 days. Persistent complex right adnexal cyst. Allowing for differences in measurement technique this shows little change from the most recent exam. copyright 2010 [email or web address]- All Rights Reserved
--- NOTE | 2018-10-12 04:36 | ER Document Report ---
ED General - General Chief Complaint: Abdominal Pain Stated Complaint: ABDOMINAL PAIN Time Seen by Provider: 10/11/18 23:53 Notes: Patient is a 32-year-old female presents with complaint of some pelvic pain. She also has had some nausea. No fevers. He says several days ago she had one episode of abnormal vaginal discharge but that has since resolved. No vaginal bleeding. She has not yet seen in a optical instruments supervisor. She was taking some vitamins but ran out and therefore has not taken any further as of recent. She was given some Phenergan in triage. She says she feels much improved now. She complains of possible subjective fevers however does not have a thermometer and therefore did not take her temp. TRAVEL OUTSIDE OF THE [place] IN LAST 30 DAYS: No - Related Data Allergies/Adverse Reactions: ketorolac tromethamine [From Toradol] Allergy (Verified 09/24/18 07:27) meperidine HCl [From Demerol] Allergy (Verified 09/24/18 07:27) metoclopramide HCl [From Reglan] Allergy (Verified 09/24/18 07:27) morphine [Morphine] Allergy (Verified 09/24/18 07:27) nalbuphine [From Nubain] Allergy (Verified 09/24/18 07:27) Hives tramadol [Tramadol] Allergy (Verified 09/24/18 07:27) Hives ondansetron HCl [From Zofran] Adverse Reaction (Verified 09/24/18 07:27) VOMITING Past Medical History - Social History Smoking Status: Current Some Day Smoker Frequency of alcohol use: None Drug Abuse: None Family History: Reviewed & Not Pertinent, Arthritis, DM, Hyperlipidemia, Hypertension Patient has suicidal ideation: No Patient has homicidal ideation: No - Past Medical History Cardiac Medical History: Reports: Hx Hypertension Neurological Medical History: Reports: Hx Migraine Renal/ Medical History: Denies: Hx Peritoneal Dialysis Musculoskeletal Medical History: Reports Hx Musculoskeletal Trauma Psychiatric Medical History: Reports: Hx Anxiety, Hx Attention Deficit Hyperactivity Disorder, Hx Bipolar Disorder, Hx Depression, Hx Post Traumatic Stress Disorder Traumatic Medical History: Reports: Hx Fractures - nose Past Surgical History: Reports: Hx Abdominal Surgery - LAPROSCOPY, Hx Gynecologic Surgery - d&c, lap for endometriosis, Hx Nose Surgery - Reconstru ction for fracture, Other - facial reconstruction - Immunizations Immunizations up to date: Yes Hx Diphtheria, Pertussis, Tetanus Vaccination: Yes - 2010 Review of Systems - Review of Systems Notes: My Normal Review Basic REVIEW OF SYSTEMS: CONSTITUTIONAL : Denies fever, chills, or sweats. Denies recent illness. EENT: Denies eye, ear, throat, or mouth pain or symptoms. Denies nasal or sinus congestion. RESPIRATORY: Denies cough, cold, or chest congestion. Denies shortness of breath, difficulty breathing, or wheezing. GASTROINTESTINAL: Suprapubic abdominal pain. Some nausea. GENITOURINARY: Denies difficulty urinating, painful urination, burning, brayan quency, or blood in urine. FEMALE GENITOURINARY: Denies vaginal bleeding, abnormal or irregular periods. LMP: Currently MUSCULOSKELETAL: Denies neck or back pain or joint pain or swelling. SKIN: Denies rash or skin lesions. NEUROLOGICAL: Denies altered mental status or loss of consciousness. Denies headache. Denies weakness or paralysis or loss of use of either side. Denies problems with gait or speech. Denies sensory or motor loss. ALL OTHER SYSTEMS REVIEWED AND NEGATIVE. Physical Exam - Vital signs Vitals: Temp Pulse Resp BP Pulse Ox 98.9 F 103 H 15 134/87 H 100 10/11/18 22:11 10/11/18 22:11 10/11/18 22:11 10/11/18 22:11 10/11/18 22:11 - Notes Notes: General Appearance: Well nourished, alert, cooperative, no acute distress, no obvious discomfort. Appearing. Vitals: reviewed, See vital signs table. Head: no swelling or tenderness to the head Eyes: PERRL, EOMI, Conjuctiva clear Mouth: No decreasd moisture Lungs: No wheezing, No rales, No rhonci, No accessory muscle use, good air exchange bilaterally. Heart: Normal rate, Regular rythm, No murmur, no rub Abdomen: Normal BS, soft, No rigidity, mild suprapubic dull tenderness to pal pation., No guarding, no rebound, no abdominal masses, no organomegaly Extremities: strength 5/5 in all extremities, good pulses in all extremities, no swelling or tenderness in the extremities, no edema. Skin: warm, dry, appropriate color, no rash Neuro: speech clear, oriented x 3, normal affect, responds appropriately to questions. Course - Re-evaluation Re-evalutation: 10/12/18 06:31 Patient looks well and evaluation. She has very mild suprapubic tenderness to palpation. Rest of abdomen is nontender. Ultrasound shows possible small subchorionic hemorrhage. This could be the cause of the cramping she was having earlier. She did do well with the Phenergan. Will prescribe this for her. She had one day of some vaginal discharge last week. She said no further vaginal discharge and no bleeding therefore I do not think pelvic exam is needed at this time. Urinalysis negative. I would refer her to optical instruments supervisor. I encouraged her to start taking vitamins again. I will prescribe her Phenergan. Encourage her to return to ER if she has vaginal bleeding, pelvic pain, or if she feels unwell. Patient agrees with plan will be discharged home. Dictation of this chart was performed using voice recognition software; therefore, there may be some unintended grammatical errors. - Vital Signs Vital signs: Temp Pulse Resp BP Pulse Ox 97.8 F 88 18 110/66 100 10/12/18 05:00 10/12/18 04:45 10/12/18 04:45 10/12/18 04:45 10/12/18 04:45 - Laboratory Result Diagrams: 10/12/18 00:08 10/12/18 01:12 Laboratory results interpreted by me: 10/11/18 10/12/18 10/12/18 23:55 00:08 01:12 Hgb 10.6 L Hct 31.6 L RDW 15.3 H Carbon Dioxide 21 L Creatinine 0.43 L Beta HCG, Quant 43096.00 H Ur Leukocyte Esterase SMALL H Discharge - Discharge Clinical Impression: Nausea, Abdominal pain, , Subchorionic bleed Condition: Good Disposition: HOME, SELF-CARE Additional Instructions: Your ultrasound shows a small area of subchorionic hemorrhage. This is a small area of bleeding where the the baby is attached uterus. Typically this resolves on its own. You should avoid sexual activity and heavy lifting for at least a week. Please return to ER immediately if you have any bleeding, worsening pain, fevers, or recurrent vomiting. Please take [id number] vitamins. Please contact the optical instruments supervisor, Dr. Garcia, for a close follow-up appointment. Prescriptions: Promethazine HCl [Phenergan 25 mg Tablet] 1 tab PO Q6H PRN #15 tablet PRN Reason:
[2018-10-12 05:12] VITALS: BP 110/66
== END 2018-10-12 04:55 | disposition home or self-care (01) ==
LOC: ER 21:56
DX: O26.891 Other specified pregnancy related conditions, first trimester (principal); R10.2 Pelvic and perineal pain; R11.0 Nausea; O20.8 Other hemorrhage in early pregnancy; O99.331 Smoking (tobacco) complicating pregnancy, first trimester; O16.1 Unspecified maternal hypertension, first trimester; Z3A.10 10 weeks gestation of pregnancy; Z88.8 Allergy status to other drugs, medicaments and biological substances; Z88.5 Allergy status to narcotic agent
CPT/HCPCS: 99284; 96372; 36415; 84702; 83690; 85025; 80053; 81001; 76801; 93976; J2550

== ENCOUNTER 2018-10-15 17:11 | Emergency (ER) | payer SELFPAY ==
[2018-10-15] MEDS ORDERED: NORMAL SALINE 1000 ML 1,000 ML IV ONE (18:36)
[2018-10-15] MEDS ORDERED: MAGNESIUM SULFATE/D5W 1 GM/100 ML RTUPB IV ONE (18:36)
--- NOTE | 2018-10-15 18:36 | ER Document Report ---
ED Medical Screen (RME) - General Chief Complaint: Headache Stated Complaint: HEADACHE Time Seen by Provider: 10/15/18 18:23 Notes: Patient is a 32-year-old female, 10 weeks gravid that presents to the emergency department for chief complaint of migraine type headache. Patient reports the headaches in her left side, gradual onset of symptoms, over the course of today, started after muslim, associated nausea, and generalized weakness, no focal weakness. She also complains that she was having a hard time swallowing 1 of her anxiety pills. Patient is specifically requesting Phenergan and Benadryl for her headache, she states she is allergic to all the medications for headache, I explained to her that we should try to avoid these medications, she was insistent that it is the only thing that helps her headaches. ROS: Other than noted above, the 12 point review of systems was reviewed with the patient and were negative, all pertinent findings are included in the HPI. PHYSICAL EXAMINATION: Vital signs reviewed. GENERAL: Patient appears uncomfortable HEAD: Atraumatic, normocephalic. EYES: Pupils equal round extraocular movements intact, conjunctiva are normal. ENT: Nares patent NECK: Normal range of motion CV: Heart regular rate and rhythm LUNGS: No respiratory distress Musculoskeletal: Normal range of motion NEUROLOGICAL: Normal speech PSYCH: Normal mood, normal affect. MDM: Patient seen and examined for rapid initial assessment. Vital signs reviewed. A comprehensive ED assessment and evaluation of the patient, analysis of test results and completion of the medical decision making process will be conducted by additional ED providers. *Note is created using voice recognition software and may contain spelling, syntax or grammatical errors. TRAVEL OUTSIDE OF THE [place] IN LAST 30 DAYS: No - Related Data Allergies/Adverse Reactions: ketorolac tromethamine [From Toradol] Allergy (Verified 10/15/18 18:29) meperidine HCl [From Demerol] Allergy (Verified 10/15/18 18:29) metoclopramide HCl [From Reglan] Allergy (Verified 10/15/18 18:29) morphine [Morphine] Allergy (Verified 10/15/18 18:29) nalbuphine [From Nubain] Allergy (Verified 10/15/18 18:29) Hives tramadol [Tramadol] Allergy (Verified 10/15/18 18:29) Hives ondansetron HCl [From Zofran] Adverse Reaction (Verified 10/15/18 18:29) VOMITING Past Medical History - Social History Chew tobacco use (# tins/day): No Frequency of alcohol use: None Drug Abuse: None Family history: None - Past Medical History Cardiac Medical History: Reports: Hx Hypertension Neurological Medical History: Reports: Hx Migraine Renal/ Medical History: Denies: Hx Peritoneal Dialysis Musculoskeltal Medical History: Reports Hx Musculoskeletal Trauma Psychiatric Medical History: Reports: Hx Anxiety, Hx Attention Deficit Hyperactivity Disorder, Hx Bipolar Disorder, Hx Depression, Hx Post Traumatic Stress Disorder Traumatic Medical History: Reports: Hx Fractures - nose Past Surgical History: Reports: Hx Abdominal Surgery - LAPROSCOPY, Hx Gynecologic Surgery - d&c, lap for endometriosis, Hx Nose Surgery - Reconstruction for fracture, Other - facial reconstruction - Immunizations Immunizations up to date: Yes Hx Diphtheria, Pertussis, Tetanus Vaccination: Yes - 2010 Physical Exam - Vital signs Vitals: Temp Pulse Resp BP Pulse Ox 99.3 F 99 14 131/81 H 100 10/15/18 17:42 10/15/18 17:42 10/15/18 17:42 10/15/18 17:42 10/15/18 17:42 Course - Vital Signs Vital signs: Temp Pulse Resp BP Pulse Ox 99.3 F 99 14 131/81 H 100 10/15/18 17:42 10/15/18 17:42 10/15/18 17:42 10/15/18 17:42 10/15/18 17:42
[2018-10-15 19:39] LABS: APPEARANCE,URINE CLEAR; BILIRUBIN,URINE NEGATIVE (NEGATIVE); COLOR,URINE YELLOW; GLUCOSE, URINE NEGATIVE (NEGATIVE); KETONES,URINE NEGATIVE (NEGATIVE); LEUKOCYTE ESTERASE,URINE NEGATIVE (NEGATIVE); NITRITE,URINE NEGATIVE (NEGATIVE); PROTEIN,URINE NEGATIVE (NEGATIVE); UROBILINOGEN,URINE NEGATIVE mg/dL (<2.0)
[2018-10-15] MEDS ORDERED: DIPHENHYDRAMINE HCL 50 MG/ML VIAL IV ONE (20:35)
--- NOTE | 2018-10-15 20:35 | ER Document Report ---
ED General - General Chief Complaint: Headache Stated Complaint: HEADACHE Time Seen by Provider: 10/15/18 18:23 Notes: Patient is a 32-year-old female, 10 weeks gravid that presents to the emergency department for chief complaint of migraine type headache. Patient reports the headaches in her left side, gradual onset of symptoms, over the course of today, started after adventism, associated nausea, and generalized weakness, no focal weakness. She also complains that she was having a hard time swallowing 1 of her clonazepam pills. Patient is specifically requesting Phenergan and Benadryl for her headache, she states she is allergic to all the medications for headache. Patient states she took Tylenol one time at 5:00 this morning for headache, but does state that her headache started after lunch. She denies fevers, chills, vomiting, diarrhea, abdominal pain TRAVEL OUTSIDE OF THE [place] IN LAST 30 DAYS: No - Related Data Allergies/Adverse Reactions: ketorolac tromethamine [From Toradol] Allergy (Verified 10/15/18 18:29) meperidine HCl [From Demerol] Allergy (Verified 10/15/18 18:29) metoclopramide HCl [From Reglan] Allergy (Verified 10/15/18 18:29) morphine [Morphine] Allergy (Verified 10/15/18 18:29) nalbuphine [From Nubain] Allergy (Verified 10/15/18 18:29) Hives tramadol [Tramadol] Allergy (Verified 10/15/18 18:29) Hives ondansetron HCl [From Zofran] Adverse Reaction (Verified 10/15/18 18:29) VOMITING Past Medical History - Social History Smoking Status: Current Every Day Smoker Chew tobacco use (# tins/day): No Frequency of alcohol use: None Drug Abuse: None Family History: Reviewed & Not Pertinent, Arthritis, DM, Hyperlipidemia, Hypertension Patient has suicidal ideation: No Patient has homicidal ideation: No - Past Medical History Cardiac Medical History: Reports: Hx Hypertension Neurological Medical History: Reports: Hx Migraine Renal/ Medical History: Denies: Hx Peritoneal Dialysis Musculoskeletal Medical History: Reports Hx Musculoskeletal Trauma Psychiatric Medical History: Reports: Hx Anxiety, Hx Attention Deficit Hyperactivity Disorder, Hx Bipolar Disorder, Hx Depression, Hx Post Traumatic Stress Disorder Traumatic Medical History: Reports: Hx Fractures - nose Past Surgical History: Reports: Hx Abdominal Surgery - LAPROSCOPY, Hx Gynecologic Surgery - d&c, lap for endometriosis, Hx Nose Surgery - Reconstruc tion for fracture, Other - facial reconstruction - Immunizations Immunizations up to date: Yes Hx Diphtheria, Pertussis, Tetanus Vaccination: Yes - 2010 Review of Systems - Review of Systems Constitutional: See HPI EENT: See HPI Cardiovascular: No symptoms reported Respiratory: No symptoms reported Gastrointestinal: See HPI Genitourinary: No symptoms reported Female Genitourinary: No symptoms reported Musculoskeletal: No symptoms reported Skin: No symptoms reported Hematologic/Lymphatic: No symptoms reported Neurological/Psychological: See HPI Physical Exam - Vital signs Vitals: Temp Pulse Resp BP Pulse Ox 99.3 F 99 14 131/81 H 100 10/15/18 17:42 10/15/18 17:42 10/15/18 17:42 10/15/18 17:42 10/15/18 17:42 - Notes Notes: PHYSICAL EXAMINATION: Reviewed vital signs and charting by RN GENERAL: Alert, interacts well. No acute distress. HEAD: Normocephalic, atraumatic. EYES: Pupils equal, round, and reactive to light. Extraocular movements intact. ENT: Oral mucosa moist, tongue midline. NECK: Full range of motion. Supple. Trachea midline. LUNGS: Clear to auscultation bilaterally, no wheezes, rales, or rhonchi. No respiratory distress. HEART: Regular rate and rhythm. No murmur ABDOMEN: soft, non-tender. Non-distended. Bowel sounds present in all 4 quadrants. no McBurney's point tenderness, no Matos sign. EXTREMITIES: Moves all 4 extremities spontaneously. No edema, No cyanosis. NEUROLOGICAL: Alert. Normal speech. PSYCH: Normal affect, normal mood. SKIN: Warm, dry, normal turgor. No rashes or lesions noted. Course - Re-evaluation Re-evalutation: 10/15/18 20:[address] Baljit De La Cruz as patient is demanding Phenergan and Benadryl. We both agree that the benefits of Phenergan do not outweigh the teratogenic risks and a course of IV Benadryl would be appropriate. I explained to her that Diclegis is now first-line for associated nausea and she can buy Unisom and vitamin B6 as an affordable means. Patient is adamant and not very agreeable. 10/15/18 22:46 Patient with initial blood glucose of 67 here. We gave her some kristyn crackers, orange juice, soda. Recheck it was 114. Also gave her Benadryl 25 mg IV 1 time. I explained to her that the Phenergan is a category C and the benefits do not outweigh the risks of giving this medication considering her symptoms. She understood. After giving her the orange juice and crackers she does state interval improvement. She also received Tylenol 975 mg 1 time. She feels better and is ready to discharge home. - Vital Signs Vital signs: Temp Pulse Resp BP Pulse Ox 99.3 F 99 14 131/81 H 100 10/15/18 17:42 10/15/18 17:42 10/15/18 17:42 10/15/18 17:42 10/15/18 17:42 - Laboratory Laboratory results interpreted by me: 10/15/18 10/15/18 21:25 22:14 POC Glucose 67 L 114 H Discharge - Discharge Clinical Impression: Nausea Headache Qualifiers: Headache type: unspecified Headache chronicity pattern: acute headache Intract ability: not intractable Qualified Code(s): R51 - Headache Condition: Good Disposition: HOME, SELF-CARE Instructions: Use of Diphenhydramine, Headache ([facility]) Additional Instructions: You were seen in the emergency department this evening for headache and nausea. Your blood sugar was slightly low and you should pay attention to that while you are as it could affect your child. For the nausea you can take [id number] Unisom 10 mg and vitamin B6 which is considered first-line for associated nausea. If he develops severe unremitting headache unlike anything you have ever felt before, pass out, severe abdominal pain with vaginal bleeding, or have any other concerns please merely return to the emergency department.
[2018-10-15] MEDS ORDERED: ACETAMINOPHEN 325 MG TABLET PO ONE (22:20)
[2018-10-15 23:09] VITALS: BP 125/80
== END 2018-10-15 23:10 | disposition home or self-care (01) ==
LOC: ER 17:11
DX: O26.891 Other specified pregnancy related conditions, first trimester (principal); R51 Headache; R11.0 Nausea; R53.1 Weakness; R13.10 Dysphagia, unspecified; O16.1 Unspecified maternal hypertension, first trimester; O99.331 Smoking (tobacco) complicating pregnancy, first trimester; O99.341 Other mental disorders complicating pregnancy, first trimester; F41.9 Anxiety disorder, unspecified; Z3A.10 10 weeks gestation of pregnancy; Z88.8 Allergy status to other drugs, medicaments and biological substances; Z88.6 Allergy status to analgesic agent; Z88.5 Allergy status to narcotic agent
CPT/HCPCS: 99283; 96361; 96375; 96365; 82962; 81001; J1200; J3475; J7030

== ENCOUNTER 2018-10-24 14:14 | Emergency (ER) | payer SELFPAY ==
--- NOTE | 2018-10-24 15:46 | ER Document Report ---
ED Medical Screen (RME) - General Chief Complaint: Headache Stated Complaint: ABDOMINAL PAIN Time Seen by Provider: 10/24/18 15:44 Mode of Arrival: Ambulatory Information source: Patient Notes: 32-year-old female presents to ED for complaint of headache lower abdominal pain and vision blurry. She is and states that her due date is May 04. She states she came to the emergency room last week for similar symptoms they gave her some Phenergan Benadryl and magnesium and she had a headache for 4 days after that. She states she has the headache again with the abdominal pain and very blurry vision. She states she has been taken Tylenol. She states she supposed to go to [place] for her [employer] because she is not allowed to go to [facility] but she does not have any transportation to go to [place]. Patient is alert oriented respirations regular and unlabored speaking in full sentences walks with a even steady gait. I have greeted and performed a rapid initial assessment of this patient. A comprehensive ED assessment and evaluation of the patient, analysis of test results and completion of medical decision making process will be conducted by an additional ED providers. TRAVEL OUTSIDE OF THE [place] IN LAST 30 DAYS: No - Related Data Allergies/Adverse Reactions: ketorolac tromethamine [From Toradol] Allergy (Verified 10/24/18 14:25) meperidine HCl [From Demerol] Allergy (Verified 10/24/18 14:25) metoclopramide HCl [From Reglan] Allergy (Verified 10/24/18 14:25) morphine [Morphine] Allergy (Verified 10/24/18 14:25) nalbuphine [From Nubain] Allergy (Verified 10/24/18 14:25) Hives tramadol [Tramadol] Allergy (Verified 10/24/18 14:25) Hives ondansetron HCl [From Zofran] Adverse Reaction (Verified 10/24/18 14:25) VOMITING Past Medical History - Social History Family history: None - Past Medical History Cardiac Medical History: Reports: Hx Hypertension Neurological Medical History: Reports: Hx Migraine Renal/ Medical History: Denies: Hx Peritoneal Dialysis Musculoskeltal Medical History: Reports Hx Musculoskeletal Trauma Psychiatric Medical History: Reports: Hx Anxiety, Hx Attention Deficit Hyperactivity Disorder, Hx Bipolar Disorder, Hx Depression, Hx Post Traumatic Stress Disorder Traumatic Medical History: Reports: Hx Fractures - nose Past Surgical History: Reports: Hx Abdominal Surgery - LAPROSCOPY, Hx Gynecologic Surgery - d&c, lap for endometriosis, Hx Nose Surgery - Reconstruction for fracture, Other - facial reconstruction - Immunizations Immunizations up to date: Yes Hx Diphtheria, Pertussis, Tetanus Vaccination: Yes - 2010 Physical Exam - Vital signs Vitals: Temp Pulse Resp BP Pulse Ox 98.5 F 83 18 138/97 H 99 10/24/18 14:29 10/24/18 14:29 10/24/18 14:29 10/24/18 14:29 10/24/18 14:29 Course - Vital Signs Vital signs: Temp Pulse Resp BP Pulse Ox 98.5 F 83 18 138/97 H 99 10/24/18 14:29 10/24/18 14:29 10/24/18 14:29 10/24/18 14:29 10/24/18 14:29 - Laboratory Result Diagrams: 10/24/18 16:20 10/24/18 16:20 Laboratory results interpreted by me: 10/24/18 10/24/18 16:20 16:20 RBC 3.14 L Hgb 9.1 L Hct 26.7 L RDW 15.9 H Potassium 3.5 L BUN 4 L Creatinine 0.44 L Beta HCG, Quant 65698.00 H
[2018-10-24 16:26] LABS: APPEARANCE,URINE CLEAR; BILIRUBIN,URINE NEGATIVE (NEGATIVE); COLOR,URINE COLORLESS; GLUCOSE, URINE NEGATIVE (NEGATIVE); KETONES,URINE NEGATIVE (NEGATIVE); LEUKOCYTE ESTERASE,URINE NEGATIVE (NEGATIVE); NITRITE,URINE NEGATIVE (NEGATIVE); PROTEIN,URINE NEGATIVE (NEGATIVE); URINE SPECIFIC GRAVITY 1.001; UROBILINOGEN,URINE NEGATIVE mg/dL (<2.0)
[2018-10-24 16:35] LABS: ABSOLUTE EOSINOPHILS # (AUTO) 0.2 10^3/uL (0.0-0.6); ABSOLUTE MONOCYTES (AUTO) 0.6 10^3/uL (0.1-1.4); BASOPHILS % (AUTO) 0.3 % (0-2); EOSINOPHILS % (AUTO) 3.6 % (0-6); HEMATOCRIT 26.7 % (36.0-47.0); HEMOGLOBIN 9.1 g/dL (12.0-15.5); LYMPHOCYTES % (AUTO) 33.9 % (13-45); MEAN CORPUSCULAR HEMOGLOBIN 28.9 pg (27.0-33.4); MEAN CORPUSCULAR VOLUME 85 fl (80-97); MONOCYTES % (AUTO) 10.1 % (3-13); PLATELET COUNT 161 10^3/uL (150-450); RED BLOOD COUNT 3.14 10^6/uL (3.72-5.28); RED CELL DISTRIBUTION WIDTH 15.9 % (11.5-14.0); SEGMENTED NEUTROPHILS % (AUTO) 52.1 % (42-78); TOTAL CELLS COUNTED % (AUTO) 100 %; WHITE BLOOD COUNT 5.8 10^3/uL (4.0-10.5)
[2018-10-24 17:00] LABS: ANION GAP 7 (5-19); BLOOD UREA NITROGEN 4 mg/dL (7-20); CALCIUM 9.3 mg/dL (8.4-10.2); CARBON DIOXIDE 26 mmol/L (22-30); CHLORIDE 105 mmol/L (98-107); GLUCOSE 104 mg/dL (75-110); POTASSIUM 3.5 mmol/L (3.6-5.0)
[2018-10-24] MEDS ORDERED: PROMETHAZINE HCL INJ 25 MG/1 ML VIAL IM ONE (17:12)
[2018-10-24] MEDS ORDERED: DIPHENHYDRAMINE HCL 50 MG/ML VIAL IM ONE (17:13)
--- NOTE | 2018-10-24 17:40 | ER Document Report ---
ED General - General Chief Complaint: Headache Stated Complaint: ABDOMINAL PAIN Time Seen by Provider: 10/24/18 15:44 Mode of Arrival: Ambulatory Notes: 32-year-old female A1 at approximately 11 weeks gestation per last menstrual period presents to ED for complaint of headache lower abdominal pain. She is and states that her due date is May 04. She states she came to the emergency room last week for similar symptoms they gave her some Phenergan Benadryl and magnesium and she had a headache for 4 days after that. She states she has the headache again with the abdominal pain. She states she has been taken Tylenol without relief. She states she supposed to go to [place] for her COURT CLERK because she is not allowed to go to [facility] but she does not have any transportation to go to [place]. Patient is alert oriented respirations regular and unlabored speaking in full sentences walks with a even steady gait. Patient denies vaginal bleeding, vaginal discharge. TRAVEL OUTSIDE OF THE U[place] IN LAST 30 DAYS: No - HPI Onset: This morning Onset/Duration: Gradual, Persistent Quality of pain: Achy Severity: Mild Associated symptoms: Headache, Other - Abdominal pain. denies: Body/muscle aches, Chest pain, Nonproductive cough, Productive cough, Fever, Nausea, Vomiting, Sinus pain/drainage - Related Data Allergies/Adverse Reactions: ketorolac tromethamine [From Toradol] Allergy (Verified 10/24/18 14:25) meperidine HCl [From Demerol] Allergy (Verified 10/24/18 14:25) metoclopramide HCl [From Reglan] Allergy (Verified 10/24/18 14:25) morphine [Morphine] Allergy (Verified 10/24/18 14:25) nalbuphine [From Nubain] Allergy (Verified 10/24/18 14:25) Hives tramadol [Tramadol] Allergy (Verified 10/24/18 14:25) Hives ondansetron HCl [From Zofran] Adverse Reaction (Verified 10/24/18 14:25) VOMITING Past Medical History - General Information source: Patient - Social History Smoking Status: Current Every Day Smoker Frequency of alcohol use: None Drug Abuse: None Lives with: Spouse/Significant other Family History: Reviewed & Not Pertinent, Arthritis, DM, Hyperlipidemia, Hypertension Patient has suicidal ideation: No Patient has homicidal ideation: No - Past Medical History Cardiac Medical History: Reports: Hx Hypertension Neurological Medical History: Reports: Hx Migraine Renal/ Medical History: Denies: Hx Peritoneal Dialysis Musculoskeletal Medical History: Reports Hx Musculoskeletal Trauma Psychiatric Medical History: Reports: Hx Anxiety, Hx Attention Deficit Hyperactivity Disorder, Hx Bipolar Disorder, Hx Depression, Hx Post Traumatic Stress Disorder Traumatic Medical History: Reports: Hx Fractures - nose Past Surgical History: Reports: Hx Abdominal Surgery - LAPROSCOPY, Hx Gynecologic Surgery - d&c, lap for endometriosis, Hx Nose Surgery - Reconstruction for fracture, Other - facial reconstruction - Immunizations Immunizations up to date: Yes Hx Diphtheria, Pertussis, Tetanus Vaccination: Yes - 2010 Review of Systems - Review of Systems Notes: REVIEW OF SYSTEMS: CONSTITUTIONAL : Denies fever, chills, or sweats. Denies recent illness. Denies weight loss, recent hospitalizations. EENT: Denies visual changes, eye pain. Denies sore throat, oral lesions, difficulty swallowing. CARDIOVASCULAR: Denies chest pain. Denies palpitations. Denies lower extremity edema. RESPIRATORY: Denies cough. Denies shortness of breath, wheezing. GASTROINTESTINAL: Denies abdominal distention. Denies nausea, vomiting, or diarrhea. Denies blood in vomitus, stools, or per rectum. Denies black, tarry stools. Denies constipation. GENITOURINARY: Denies difficulty urinating, painful urination, frequency, blood in urine, or vaginal discharge. MUSCULOSKELETAL: Denies back or neck pain or stiffness. Denies joint pain or swelling. SKIN: Denies rash, lesions or sores. HEMATOLOGIC : Denies easy bruising or bleeding. LYMPHATIC: Denies swollen glands. NEUROLOGICAL: Denies confusion or altered mental status. Denies loss of consciousness. Denies dizziness or lightheadedness. Denies weakness or paralysis. Denies problems difficulty with ambulation, slurred speech. Denies sensory loss, numbness, or tingling. Denies seizures. PSYCHIATRIC: Denies anxiety or stress. Denies depression, suicidal ideation, or homicidal ideation. Denies visual or auditory hallucinations. Physical Exam - Vital signs Vitals: Temp Pulse Resp BP Pulse Ox 98.5 F 83 18 138/97 H 99 10/24/18 14:29 10/24/18 14:29 10/24/18 14:29 10/24/18 14:29 10/24/18 14:29 - Notes Notes: PHYSICAL EXAMINATION: GENERAL: Well-appearing, well-nourished and in no acute distress. HEAD: Atraumatic, normocephalic. EYES: Pupils equal round and reactive to light, extraocular movements intact, conjunctiva are normal. ENT: Nares patent, oropharynx clear without exudates. Moist mucous membranes. NECK: Normal range of motion, supple without lymphadenopathy LUNGS: Breath sounds clear to auscultation bilaterally and equal. No wheezes rales or rhonchi. HEART: Regular rate and rhythm without murmurs ABDOMEN: Soft, nontender, nondistended abdomen. No guarding, no rebound. No masses appreciated. Female : deferred Musculoskeletal: Normal range of motion, no pitting or edema. No cyanosis. NEUROLOGICAL: Cranial nerves grossly intact. Normal speech, normal gait. Normal sensory, motor exams PSYCH: Normal mood, normal affect. SKIN: Warm, Dry, normal turgor, no rashes or lesions noted. Course - Re-evaluation Re-evalutation: 10/25/18 00:24 Laboratory 10/24/18 10/24/18 10/24/18 14:30 16:20 16:20 WBC 5.8 RBC 3.14 L Hgb 9.1 L Hct 26.7 L MCV 85 MCH 28.9 MCHC 34.0 RDW 15.9 H Plt Count 161 Seg Neutrophils % 52.1 Lymphocytes % 33.9 Monocytes % 10.1 Eosinophils % 3.6 Basophils % 0.3 Absolute Neutrophils 3.0 Absolute Lymphocytes 2.0 Absolute Monocytes 0.6 Absolute Eosinophils 0.2 Absolute Basophils 0.0 Sodium 138.0 Potassium 3.5 L Chloride 105 Carbon Dioxide 26 Anion Gap 7 BUN 4 L Creatinine 0.44 L Est GFR ( Amer) > 60 Est GFR (Non-Af Amer) > 60 Glucose 104 POC Glucose Calcium 9.3 Beta HCG, Quant 37935.00 H Total Beta HCG POSITIVE Urine Color COLORLESS Urine Appearance CLEAR Urine pH 8.0 Ur Specific Hewitt 1.001 Urine Protein NEGATIVE Urine Glucose (UA) NEGATIVE Urine Ketones NEGATIVE Urine Blood NEGATIVE Urine Nitrite NEGATIVE Urine Bilirubin NEGATIVE Urine Urobilinogen NEGATIVE Ur Leukocyte Esterase NEGATIVE Urine WBC (Auto) 1 Urine RBC (Auto) 0 Squamous Epi Cells Auto 1 Urine Mucus (Auto) RARE Urine Ascorbic Acid NEGATIVE 10/24/18 17:28 WBC RBC Hgb Hct MCV MCH MCHC RDW Plt Count Seg Neutrophils % Lymphocytes % Monocytes % Eosinophils % Basophils % Absolute Neutrophils Absolute Lymphocytes Absolute Monocytes Absolute Eosinophils Absolute Basophils Sodium Potassium Chloride Carbon Dioxide Anion Gap BUN Creatinine Est GFR ( Amer) Est GFR (Non-Af Amer) Glucose POC Glucose 80 Calcium Beta HCG, Quant Total Beta HCG Urine Color Urine Appearance Urine pH Ur Specific Hewitt Urine Protein Urine Glucose (UA) Urine Ketones Urine Blood Urine Nitrite Urine Bilirubin Urine Urobilinogen Ur Leukocyte Esterase Urine WBC (Auto) Urine RBC (Auto) Squamous Epi Cells Auto Urine Mucus (Auto) Urine Ascorbic Acid Obstetrics Ultrasound 10/24/18 17:12 IMPRESSION: LIMITED OBSTETRICAL ULTRASOUND WITH MEASURED PARAMETERS DELINEATED ABOVE. Trimester of : First trimester - 0 to 13 weeks. Temp Pulse Resp BP Pulse Ox 98.2 F 88 16 118/73 98 10/24/18 20:32 10/24/18 20:32 10/24/18 20:32 10/24/18 20:32 10/24/18 20:32 32-year-old female presents with complaint of headache, abdominal pain. Patient is a at approximately 10 weeks gestation per last menstrual period. Has been seen multiple times and is well-known to the emergency department. Does have a long history of psychiatric illness. Upon my arrival into the room patient is sleeping soundly. She is complaining of a right-sided headache. Patient requesting Phenergan and Benadryl as she states that this is the only thing that helps her headaches. She has no neuro deficits. Ultrasound was obtained and showed a live intrauterine with a heart rate of 163. On reevaluation patient again is sleeping peacefully. She was awoken and reports improvement of her headache, abdominal pain. Patient is on multiple medications that we have discussed are unsafe for her . She states that she was discharged from her previous OB practice and now has to go to [place]. I urged her that she should only be taking Tylenol as needed for pain. Patient expresses understanding and was discharged home in stable condition. Dictation on this chart was performed using voice recognition software and may result in unintended grammatical, spelling, syntax or errors. - Vital Signs Vital signs: Temp Pulse Resp BP Pulse Ox 98.2 F 88 16 118/73 98 10/24/18 20:32 10/24/18 20:32 10/24/18 20:32 10/24/18 20:32 10/24/18 20:32 - Laboratory Result Diagrams: 10/24/18 16:20 10/24/18 16:20 Laboratory results interpreted by me: 10/24/18 10/24/18 16:20 16:20 RBC 3.14 L Hgb 9.1 L Hct 26.7 L RDW 15.9 H Potassium 3.5 L BUN 4 L Creatinine 0.44 L Beta HCG, Quant 82247.00 H - Diagnostic Test Radiology reviewed: Image reviewed, Reports reviewed Discharge - Discharge Clinical Impression: Headache Qualifiers: Headache type: unspecified Headache chronicity pattern: unspecified pattern Intractability: not intractable Qualified Code(s): R51 - Headache Pelvic pain affecting Qualifiers: Trimester: first trimester Qualified Code(s): O26.891 - Other specified related conditions, first trimester Condition: Good Disposition: HOME, SELF-CARE Instructions: Headache ([facility]) Additional Instructions: Follow up with your [id number] hours for further care or return to the ED IMMEDIATELY if symptoms worsen or you have any concerns. If you cannot afford to follow up with your primary care physician a list of low cost clinics have been provided at the end of your discharge papers as well. Most prescribed medications have multiple side effects. The safest thing to do is when filling your prescription speak to your pharmacist regarding possible interactions with your normal home medications and over the counter medications such as Ibuprofen, Tylenol, Benadryl. If you experience any symptoms that cause you discomfort or concern you should discontinue the medication immediately and return to the emergency room or call your primary care physician. Please follow-up with your COURT CLERK in [place] in the next 24-48 hours. Please return immediately if you experience any vaginal bleeding, worsening abdominal pain. Forms: Elevated Blood Pressure
[2018-10-24] MEDS ORDERED: ACETAMINOPHEN 325 MG TABLET PO ONE (18:48)
--- NOTE | 2018-10-24 19:34 | RADIOLOGY REPORT (SQ) ---
EXAM DESCRIPTION: U/S [id number] TRNABD 1GES W/ODOP COMPLETED DATE/TIME: 10/24/2018 7:03 pm REASON FOR STUDY: pelvic pain COMPARISON: None. TECHNIQUE: Limited transabdominal grayscale ultrasound for evaluation of specific requested obstetri carlo parameters. LIMITATIONS: None. FINDINGS: Live Dickinson intrauterine with crown-rump length 6.5 cm consistent with 12 wee ks 6 day gestation. KRISTEN 05/02/2019. CERVICAL LENGTH: 3.1 cm Closed. TONYA: Normal. FHR: 165 beats per minute. PRESENTATION: Variable. PLACENTA: Anterior ANATOMY: Not assessed OTHER: Right ovary has 2 complex cysts one is 4 cm in greatest dimension, the other 3.7 cm. The left ovary is not visualized. No free fluid. IMPRESSION: LIMITED OBSTETRICAL ULTRASOUND WITH MEASURED PARAMETERS DELINEATED ABOVE. Trimester of : First trimester - 0 to 13 weeks. TECHNICAL DOCUMENTATION: JOB ID: [id number] [place]-72 2010 [employer]- All Rights Reserved Reading location - IP/workstation name: [email or web address]
[2018-10-24 20:35] VITALS: BP 118/73
== END 2018-10-24 20:32 | disposition home or self-care (01) ==
LOC: ER 14:14
DX: O26.891 Other specified pregnancy related conditions, first trimester (principal); R10.2 Pelvic and perineal pain; R51 Headache; O99.331 Smoking (tobacco) complicating pregnancy, first trimester; Z3A.10 10 weeks gestation of pregnancy; Z88.6 Allergy status to analgesic agent; I10 Essential (primary) hypertension
CPT/HCPCS: 99284; 96372; 36415; 87086; 82962; 84702; 85025; 80048; 81001; 76801; J1200; J2550

== ENCOUNTER 2018-11-21 02:29 | Emergency (ER) | payer MEDICAID ==
[2018-11-21] MEDS ORDERED: RINGERS SOLUTION,LACTATED 1,000 ML IV ONE (03:37)
[2018-11-21] MEDS ORDERED: PROMETHAZINE HCL INJ 25 MG/1 ML VIAL IV ONE (03:38)
[2018-11-21] MEDS ORDERED: DIPHENHYDRAMINE HCL 50 MG/ML VIAL IV ONE (03:57)
[2018-11-21 04:36] LABS: ABSOLUTE EOSINOPHILS # (AUTO) 0.2 10^3/uL (0.0-0.6); ABSOLUTE LYMPHOCYTES (AUTO) 1.6 10^3/uL (0.5-4.7); ABSOLUTE NEUT (AUTO) 6.8 10^3/uL (1.7-8.2); BASOPHILS % (AUTO) 0.2 % (0-2); EOSINOPHILS % (AUTO) 2.6 % (0-6); HEMATOCRIT 27.1 % (36.0-47.0); HEMOGLOBIN 9.2 g/dL (12.0-15.5); LYMPHOCYTES % (AUTO) 16.8 % (13-45); MEAN CORPUSCULAR HEMOGLOBIN 29.1 pg (27.0-33.4); MEAN CORPUSCULAR HGB CONC 33.7 g/dL (32.0-36.0); MEAN CORPUSCULAR VOLUME 86 fl (80-97); PLATELET COUNT 164 10^3/uL (150-450); RED BLOOD COUNT 3.14 10^6/uL (3.72-5.28); RED CELL DISTRIBUTION WIDTH 15.5 % (11.5-14.0); SEGMENTED NEUTROPHILS % (AUTO) 70.4 % (42-78); TOTAL CELLS COUNTED % (AUTO) 100 %; WHITE BLOOD COUNT 9.6 10^3/uL (4.0-10.5)
[2018-11-21 04:43] LABS: APPEARANCE,URINE CLEAR; BILIRUBIN,URINE NEGATIVE (NEGATIVE); COLOR,URINE STRAW; GLUCOSE, URINE NEGATIVE (NEGATIVE); KETONES,URINE NEGATIVE (NEGATIVE); LEUKOCYTE ESTERASE,URINE NEGATIVE (NEGATIVE); NITRITE,URINE NEGATIVE (NEGATIVE); PROTEIN,URINE NEGATIVE (NEGATIVE); URINE SPECIFIC GRAVITY 1.005; UROBILINOGEN,URINE NEGATIVE mg/dL (<2.0)
[2018-11-21 04:54] LABS: ALANINE AMINOTRANSFERASE 57 U/L (9-52); ALBUMIN 3.5 g/dL (3.5-5.0); ALKALINE PHOSPHATASE 54 U/L (38-126); ANION GAP 7 (5-19); ASPARTATE AMINO TRANSFERASE 49 U/L (14-36); BILIRUBIN,DIRECT 0.2 mg/dL (0.0-0.4); BILIRUBIN,TOTAL 0.3 mg/dL (0.2-1.3); BLOOD UREA NITROGEN 6 mg/dL (7-20); CALCIUM 9.6 mg/dL (8.4-10.2); CARBON DIOXIDE 23 mmol/L (22-30); CHLORIDE 107 mmol/L (98-107); GLUCOSE 84 mg/dL (75-110); POTASSIUM 3.5 mmol/L (3.6-5.0); SODIUM 136.6 mmol/L (137-145); TOTAL PROTEIN 6.6 g/dL (6.3-8.2)
--- NOTE | 2018-11-21 05:11 | ER Document Report ---
ED General - General Chief Complaint: Headache Stated Complaint: HEADACHE,NAUSEA Time Seen by Provider: 11/21/18 03:36 Notes: Patient is a approximate 17-week female presents to the emergency department with generalized headache in her forehead. Patient states she has a generalized headache for the last 3 days. Patient is denying any cough, congestion, fevers. Patient states she is also nauseated. States she did take 1 500 mg Tylenol tablet at 2:00 this morning. Patient is denying any abdominal pain, vaginal bleeding or discharge, dysuria. Patient states she intermittently gets headaches and nausea, states she has no diagnosis of migraines. Past medical history: Anxiety Medications: Adderall, Klonopin, Ambien Allergies: Toradol, morphine, Zofran, metoclopramide TRAVEL OUTSIDE OF THE [place] IN LAST 30 DAYS: No - Related Data Allergies/Adverse Reactions: ketorolac tromethamine [From Toradol] Allergy (Verified 11/21/18 02:32) meperidine HCl [From Demerol] Allergy (Verified 11/21/18 02:32) metoclopramide HCl [From Reglan] Allergy (Verified 11/21/18 02:32) morphine [Morphine] Allergy (Verified 11/21/18 02:32) nalbuphine [From Nubain] Allergy (Verified 11/21/18 02:32) Hives tramadol [Tramadol] Allergy (Verified 11/21/18 02:32) Hives ondansetron HCl [From Zofran] Adverse Reaction (Verified 11/21/18 02:32) VOMITING Past Medical History - General Information source: Patient - Social History Smoking Status: Current Every Day Smoker Frequency of alcohol use: None Family History: Reviewed & Not Pertinent, Arthritis, DM, Hyperlipidemia, Hypertension Patient has suicidal ideation: No Patient has homicidal ideation: No - Past Medical History Cardiac Medical History: Reports: Hx Hypertension Neurological Medical History: Reports: Hx Migraine Renal/ Medical History: Denies: Hx Peritoneal Dialysis Musculoskeletal Medical History: Reports Hx Musculoskeletal Trauma Psychiatric Medical History: Reports: Hx Anxiety, Hx Attention Deficit Hyperactivity Disorder, Hx Bipolar Disorder, Hx Depression, Hx Post Traumatic Stress Disorder Traumatic Medical History: Reports: Hx Fractures - nose Past Surgical History: Reports: Hx Abdominal Surgery - LAPROSCOPY, Hx Gynecologic Surgery - d&c, lap for endometriosis, Hx Nose Surgery - Reconstruct ion for fracture, Other - facial reconstruction - Immunizations Immunizations up to date: Yes Hx Diphtheria, Pertussis, Tetanus Vaccination: Yes - 2010 Review of Systems - Review of Systems Constitutional: No symptoms reported EENT: See HPI Cardiovascular: No symptoms reported Respiratory: No symptoms reported Gastrointestinal: See HPI Genitourinary: No symptoms reported Female Genitourinary: See HPI Musculoskeletal: No symptoms reported Skin: No symptoms reported Hematologic/Lymphatic: No symptoms reported Neurological/Psychological: See HPI Physical Exam - Vital signs Vitals: Temp Pulse Resp BP Pulse Ox 98.9 F 101 H 16 145/88 H 99 11/21/18 02:32 11/21/18 02:32 11/21/18 02:32 11/21/18 02:32 11/21/18 02:32 - Notes Notes: GENERAL: Alert, interacts well. No acute distress. HEAD: Normocephalic, atraumatic. No frontal or maxillary sinus tenderness noted EYES: Pupils equal, round, and reactive to light. Extraocular movements intact. No photophobia noted ENT: Oral mucosa moist, tongue midline. Pharynx within normal limits, no palatal petechiae noted. Patient is a very poor dentition with multiple missing teeth with obvious dental caries. NECK: Full range of motion. Supple. Trachea midline. No nuchal rigidity noted LUNGS: Clear to auscultation bilaterally, no wheezes, rales, or rhonchi. No respiratory distress. HEART: Regular rate and rhythm. No murmur ABDOMEN: Soft, non-tender. Non-distended. Bowel sounds present in all 4 quadrants. EXTREMITIES: Moves all 4 extremities spontaneously. No edema, normal radial and dorsalis pedis pulses bilaterally. No cyanosis. BACK: no cervical, thoracic, lumbar midline tenderness. No saddle anesthesia, normal distal neurovascular exam. NEUROLOGICAL: Alert and oriented x3. Normal speech. cranial nerves II through XII grossly intact. PSYCH: Normal affect, normal mood. SKIN: Warm, dry, normal turgor. No rashes or lesions noted. Course - Re-evaluation Re-evalutation: 11/21/18 06:02 After treatments in the emergency room patient states her headache feels a lot better. Patient brings to my attention that she has tooth pain as well. As document patient has very poor dentition. Tooth in question is #30, obvious dental caries and fracture noted. Minor, erythema with no fluctuance or induration noted. No Carlos's angina noted. Patient's labs show no signs of leukocytosis. Slight anemia with a hemoglobin hematocrit at 9.2 and 27.1 respectively. This appears to be patient's baseline. Patient's AST and ALT are 49 and 57 respectively. Patient's platelet count was within normal limits, bili total and direct within normal limits. Urine shows n o signs of infection with no proteinuria noted. No signs of HELLP syndrome. Discussed use of antibiotics for tooth infection and close follow-up with CERAMIC ENGINEER for continued care. Discussed use of Tylenol for generalized headaches and staying well-hydrated. Patient stable for discharge at this time. - Vital Signs Vital signs: Temp Pulse Resp BP Pulse Ox 98.9 F 101 H 16 145/88 H 99 11/21/18 02:32 11/21/18 02:32 11/21/18 02:32 11/21/18 02:32 11/21/18 02:32 - Laboratory Result Diagrams: 11/21/18 04:20 11/21/18 04:20 Laboratory results interpreted by me: 11/21/18 11/21/18 04:20 04:20 RBC 3.14 L Hgb 9.2 L Hct 27.1 L RDW 15.5 H Sodium 136.6 L Potassium 3.5 L BUN 6 L Creatinine 0.45 L AST 49 H ALT 57 H Discharge - Discharge Clinical Impression: Toothache, Dental caries Headache Qualifiers: Headache type: unspecified Headache chronicity pattern: acute headache Intractability: not intractable Qualified Code(s): R51 - Headache Condition: Stable Disposition: HOME, SELF-CARE Instructions: Antinausea Medication ([facility]), Use of Diphenhydramine, Headache ([facility]), Toothache ([facility]), Penicillin V K ([facility]), [facility] Additional Instructions: [facility] [address], [address] As we discussed you have been seen and treated in the emergency department for your generalized headache and tooth pain. Please take antibiotics as prescribed. Please also take Tylenol for your continued headaches. Please make sure you follow-up with your CERAMIC ENGINEER for continued care of your . Please also follow-up with your primary care provider. Please return to the e mergency room should you have any other concerning symptoms. Prescriptions: Penicillin V Potassium [Penicillin Vk 500 mg Tablet] 500 mg PO BID #20 tablet
[2018-11-21] MEDS ORDERED: ACETAMINOPHEN 325 MG TABLET PO ONE (05:29)
[2018-11-21] MEDS ORDERED: PENICILLIN V POTASSIUM 500 MG TABLET PO ONE (06:13)
[2018-11-21 06:40] VITALS: BP 138/82
== END 2018-11-21 06:35 | disposition home or self-care (01) ==
LOC: ER 02:29
DX: R51 Headache (principal); K02.9 Dental caries, unspecified; K08.89 Other specified disorders of teeth and supporting structures; R11.0 Nausea; D64.9 Anemia, unspecified; F17.200 Nicotine dependence, unspecified, uncomplicated; I10 Essential (primary) hypertension; Z79.899 Other long term (current) drug therapy; Z88.8 Allergy status to other drugs, medicaments and biological substances; Z88.5 Allergy status to narcotic agent
CPT/HCPCS: 99284; 96361; 96374; 96375; 36415; 85025; 80053; 81001; J3490 ×2; J1200; J2550; J7120

== ENCOUNTER 2018-12-09 09:46 | Emergency (ER) | payer MEDICAID ==
[2018-12-09] MEDS ORDERED: NORMAL SALINE 1000 ML 1,000 ML IV ONE (10:03)
--- NOTE | 2018-12-09 10:05 | ER Document Report ---
ED Medical Screen (RME) - General Chief Complaint: Abdominal Pain Stated Complaint: LOWER ABDOMINAL PAIN Time Seen by Provider: 12/09/18 10:03 Mode of Arrival: Wheelchair Information source: Patient Notes: 33-year-old female presented to ED for complaint of lower abdominal pain and heartburn. She is about 19 weeks . She states she was taking Phenergan but she is throwing that up. She states she is allergic to Reglan and Zofran. She is nauseated at this time. She states she just finished penicillin for toothache because she cannot get the tooth treated until she finished anti biotics. She states she does not keep him food down at this time. We will orders blood work urine and IV fluids. I have greeted and performed a rapid initial assessment of this patient. A comprehensive ED assessment and evaluation of the patient, analysis of test results and completion of medical decision making process will be conducted by an additional ED providers. TRAVEL OUTSIDE OF THE [place] IN LAST 30 DAYS: No - Related Data Allergies/Adverse Reactions: ketorolac tromethamine [From Toradol] Allergy (Verified 12/09/18 09:48) meperidine HCl [From Demerol] Allergy (Verified 12/09/18 09:48) metoclopramide HCl [From Reglan] Allergy (Verified 12/09/18 09:48) morphine [Morphine] Allergy (Verified 12/09/18 09:48) nalbuphine [From Nubain] Allergy (Verified 12/09/18 09:48) Hives tramadol [Tramadol] Allergy (Verified 12/09/18 09:48) Hives ondansetron HCl [From Zofran] Adverse Reaction (Verified 12/09/18 09:48) VOMITING Past Medical History - Social History Chew tobacco use (# tins/day): No Frequency of alcohol use: None Drug Abuse: None Family history: None - Past Medical History Cardiac Medical History: Reports: Hx Hypertension Neurological Medical History: Reports: Hx Migraine Renal/ Medical History: Denies: Hx Peritoneal Dialysis Musculoskeltal Medical History: Reports Hx Musculoskeletal Trauma Psychiatric Medical History: Reports: Hx Anxiety, Hx Attention Deficit Hyperactivity Disorder, Hx Bipolar Disorder, Hx Depression, Hx Post Traumatic Stress Disorder Traumatic Medical History: Reports: Hx Fractures - nose Past Surgical History: Reports: Hx Abdominal Surgery - LAPROSCOPY, Hx Gynecologic Surgery - d&c, lap for endometriosis, Hx Nose Surgery - Reconstruction for fracture, Other - facial reconstruction - Immunizations Immunizations up to date: Yes Hx Diphtheria, Pertussis, Tetanus Vaccination: Yes - 2010 Physical Exam - Vital signs Vitals: Temp Pulse Resp BP Pulse Ox 98.4 F 84 14 135/80 H 100 12/09/18 09:50 12/09/18 09:50 12/09/18 09:50 12/09/18 09:50 12/09/18 09:50 Course - Vital Signs Vital signs: Temp Pulse Resp BP Pulse Ox 98.4 F 84 14 135/80 H 100 12/09/18 09:50 12/09/18 09:50 12/09/18 09:50 12/09/18 09:50 12/09/18 09:50
[2018-12-09 10:37] LABS: APPEARANCE,URINE CLEAR; BILIRUBIN,URINE NEGATIVE (NEGATIVE); COLOR,URINE YELLOW; GLUCOSE, URINE NEGATIVE (NEGATIVE); KETONES,URINE NEGATIVE (NEGATIVE); LEUKOCYTE ESTERASE,URINE NEGATIVE (NEGATIVE); NITRITE,URINE NEGATIVE (NEGATIVE); PROTEIN,URINE NEGATIVE (NEGATIVE); URINE SPECIFIC GRAVITY 1.011; UROBILINOGEN,URINE NEGATIVE mg/dL (<2.0)
[2018-12-09] MEDS ORDERED: PROMETHAZINE HCL INJ 25 MG/1 ML VIAL IV ONE ×2 (10:43→13:13)
[2018-12-09] MEDS ORDERED: DIPHENHYDRAMINE HCL 50 MG/ML VIAL IV ONE (10:46)
--- NOTE | 2018-12-09 10:49 | ER Document Report ---
ED General - General Chief Complaint: Abdominal Pain Stated Complaint: LOWER ABDOMINAL PAIN Time Seen by Provider: 12/09/18 10:03 Mode of Arrival: Wheelchair Notes: Patient is a 33-year-old female who presents emergency department with a chief complaint of lower abdominal pressure. States she is about 19 weeks p regnant. She states that she started having her symptoms yesterday. She also admits to having some nausea and vomiting and she has not been able to hold anything down since yesterday. She has Phenergan at home, but states that she threw up her Phenergan. She also states that she has a headache. It is not any different than her normal headaches. Patient's last menstrual cycle was in July 2018 and she is currently . She is receiving care through the health department. TRAVEL OUTSIDE OF THE [place] IN LAST 30 DAYS: No - Related Data Allergies/Adverse Reactions: ketorolac tromethamine [From Toradol] Allergy (Verified 12/09/18 09:48) meperidine HCl [From Demerol] Allergy (Verified 12/09/18 09:48) metoclopramide HCl [From Reglan] Allergy (Verified 12/09/18 09:48) morphine [Morphine] Allergy (Verified 12/09/18 09:48) nalbuphine [From Nubain] Allergy (Verified 12/09/18 09:48) Hives tramadol [Tramadol] Allergy (Verified 12/09/18 09:48) Hives ondansetron HCl [From Zofran] Adverse Reaction (Verified 12/09/18 09:48) VOMITING Past Medical History - General Information source: Patient - Social History Smoking Status: Current Every Day Smoker Chew tobacco use (# tins/day): No Frequency of alcohol use: None Drug Abuse: None Family History: Reviewed & Not Pertinent, Arthritis, DM, Hyperlipidemia, Hypertension Patient has suicidal ideation: No Patient has homicidal ideation: No - Past Medical History Cardiac Medical History: Reports: Hx Hypertension Neurological Medical History: Reports: Hx Migraine Renal/ Medical History: Denies: Hx Peritoneal Dialysis Musculoskeletal Medical History: Reports Hx Musculoskeletal Trauma Psychiatric Medical History: Reports: Hx Anxiety, Hx Attention Deficit Hyperactivity Disorder, Hx Bipolar Disorder, Hx Depression, Hx Post Traumatic Stress Disorder Traumatic Medical History: Reports: Hx Fractures - nose Past Surgical History: Reports: Hx Abdominal Surgery - LAPROSCOPY, Hx Gynecologic Surgery - d&c, lap for endometriosis, Hx Nose Surgery - Reconstruction for fracture, Other - facial reconstruction - Immunizations Immunizations up to date: Yes Hx Diphtheria, Pertussis, Tetanus Vaccination: Yes - 2010 Review of Systems - Review of Systems Notes: REVIEW OF SYSTEMS: CONSTITUTIONAL : Denies recent illness. Denies recent unintentional weight loss. Denies fever, chills, or sweats. EENT: Denies eye, ear, throat, or mouth pain, discharge, or symptoms. Denies na donis or sinus congestion. CARDIOVASCULAR: Denies chest pain. RESPIRATORY: Denies shortness of breath, cough, congestion, difficulty breathing, or wheezing. GASTROINTESTINAL: See HPI. GENITOURINARY: Denies difficulty urinating, burning, blood in urine, urgency or frequency. FEMALE GENITOURINARY: Denies abnormal or irregular periods. Denies abnormal bleeding. LMP: July 2018 MUSCULOSKELETAL: Denies neck and back pain. Denies joint pain or swelling. SKIN: Denies rash, itchiness, or lesions HEMATOLOGIC : Denies easy bruising or bleeding. LYMPHATIC: Denies swollen, painful, enlarged glands. NEUROLOGICAL: Denies no numbness or tingling denies weakness. Denies headache. Denies altered mental status. Denies alteration in speech. PSYCHIATRIC: Denies stress, anxiety, alteration in sleep patterns, or depression. All other systems reviewed and negative. Physical Exam - Vital signs Vitals: Temp Pulse Resp BP Pulse Ox 98.4 F 84 14 135/80 H 100 12/09/18 09:50 12/09/18 09:50 12/09/18 09:50 12/09/18 09:50 12/09/18 09:50 - Notes Notes: PHYSICAL EXAMINATION: GENERAL: Appears unkempt, healthy, well-nourished, no acute distress. HEAD: Normocephalic, atraumatic. EYES: PERRL, conjunctiva normal, all extraocular movements intact, sclera nonicteric ENT: Moist mucous membranes. Dental caries noted. NECK: Supple, no noticeable swelling, redness, rash. Normal range of motion. LUNGS: Equal breath sounds bilaterally and clear to auscultation. No wheezes rales or rhonchi. CARDIOVASCULAR: S1-S2, regular rate, regular rhythm. Radial pulses 2+, normal. ABDOMEN: Normoactive bowel sounds. Soft, nontender, no guarding, no rebound tenderness, and no masses palpated. Noticeably , about stated gestation. EXTREMITIES: Normal strength and range of motion, no pitting or edema. No cyanosis. NEUROLOGICAL: Moves all extremities upon command. Strength 5/5 in all extremities. PSYCH: Normal mood, normal affect. SKIN: Warm, dry. No rash, lesions, ulcerations noted. Normal skin turgor. Course - Re-evaluation Re-evalutation: 12/09/18 10:50 Bedside ultrasound was done and there was heart movements visualized. She will receive a dose of Phenergan and Benadryl here in the emergency department. I do not suspect appendicitis, ovarian cyst, or any life-threatening etiology at this time. 12/09/18 12:19 Patient's urinalysis is time we are waiting for chemistry and hematology. Patient states that she is still does not feel nauseous, but has not had any actual vomiting here in the room. I will give her a popsicle to see if she is able to tolerate p.o. intake. 12/09/18 12:30 The patient states that she does not want a popsicle and she only wants her nausea medication. She states that if she tries to eat or drink anything, she will end up throwing up, although she has not thrown up here in the emergency department. She is asking for another dose of Phenergan. Unfortunately, she cannot receive her next dose of Phenergan until 130. I made her aware of that. She is in agreement with this plan. Still awaiting labs. 12/09/18 14:50 Patient's chemistry is unremarkable, other than a glucose of 72. Was given kristyn crackers. Hematology is unremarkable and is stable compared to her previous visit earlier this month. Patient states that she does feel better after receiving her second dose of Phenergan and is asking to leave. She states that she feels good enough to eat. She is able to eat kristyn crackers with no difficulty. Verbal discharge instructions were given to the patient. They verbalized understanding. They are stable for discharge. - Vital Signs Vital signs: Temp Pulse Resp BP Pulse Ox 98.7 F 81 14 121/72 100 12/09/18 14:51 12/09/18 14:51 12/09/18 14:51 12/09/18 14:51 12/09/18 14:51 - Laboratory Result Diagrams: 12/09/18 13:08 12/09/18 13:08 Laboratory results interpreted by me: 12/09/18 12/09/18 13:08 13:08 RBC 3.05 L Hgb 9.1 L Hct 26.3 L RDW 14.5 H Potassium 3.5 L Chloride 108 H Carbon Dioxide 21 L BUN 6 L Creatinine 0.42 L Glucose 72 L Procedures - Ultrasound/Bedside Ultrasound/Bedside Ultrasound: Normal - heart movement; movement Discharge - Discharge Clinical Impression: Abdominal pain Qualifiers: Abdominal location: unspecified location Qualified Code(s): R10.9 - Unspecified abdominal pain Nausea and vomiting Qualifiers: Vomiting type: unspecified Vomiting Intractability: non-intractable Qualified Code(s): R11.2 - Nausea with vomiting, unspecified Condition: Stable Disposition: HOME, SELF-CARE Additional Instructions: You have been seen for vomiting during . You should continue to drink plenty of water and consider taking a solution such as Pedialyte if your having difficulty eating food. Please return if you become unable to drink any fluids for more than 12 hours, urinate less than twice a day, pass out, or have any other symptoms that are concerning to you. For nausea and vomiting during I recomment: Start with 10-12.5 mg of pyridoxine (vitamin B6) three times a day for 2 days. If not fully effective, Increase to 12.5 mg of pyridoxine four times a day for 2 days. If not fully effective, Increase to 25 mg of pyridoxine three times a day for 2 days. If not fully effective, Continue 25 mg pyridoxine 3 times a day, and add 12.5 mg of doxylamine before bedtime each day for 2 days. If not fully effective, Continue 25 mg pyridoxine 3 times a day, and take 12.5 mg of doxylamine twice a day. If not fully effective, Continue 25 mg pyridoxine 3 times a day, and take 12.5 mg of doxylamine three times a day. If not fully effective, Continue 25 mg pyridoxine 3 times a day, and 12.5 mg of doxylamine 3 times a day, while adding Emetrol, one to two tablespoons (15-30 cc) taken once or twice a day as needed. (Emetrol is an [id number] mixture of sugar syrups and phosphoric acid [phosphorylated carbohydrate solution]) that acts by soothing the actual wall of the gastrointestinal tract). If not fully effective, Consult with your doctor.
[2018-12-09 13:25] LABS: ABSOLUTE EOSINOPHILS # (AUTO) 0.2 10^3/uL (0.0-0.6); ABSOLUTE LYMPHOCYTES (AUTO) 1.3 10^3/uL (0.5-4.7); ABSOLUTE MONOCYTES (AUTO) 0.5 10^3/uL (0.1-1.4); ABSOLUTE NEUT (AUTO) 2.6 10^3/uL (1.7-8.2); BASOPHILS % (AUTO) 0.3 % (0-2); EOSINOPHILS % (AUTO) 5.1 % (0-6); HEMATOCRIT 26.3 % (36.0-47.0); HEMOGLOBIN 9.1 g/dL (12.0-15.5); LYMPHOCYTES % (AUTO) 27.2 % (13-45); MEAN CORPUSCULAR HEMOGLOBIN 29.7 pg (27.0-33.4); MEAN CORPUSCULAR HGB CONC 34.5 g/dL (32.0-36.0); MEAN CORPUSCULAR VOLUME 86 fl (80-97); PLATELET COUNT 153 10^3/uL (150-450); RED BLOOD COUNT 3.05 10^6/uL (3.72-5.28); RED CELL DISTRIBUTION WIDTH 14.5 % (11.5-14.0); SEGMENTED NEUTROPHILS % (AUTO) 56.4 % (42-78); TOTAL CELLS COUNTED % (AUTO) 100 %; WHITE BLOOD COUNT 4.6 10^3/uL (4.0-10.5)
[2018-12-09 13:38] LABS: ALANINE AMINOTRANSFERASE 25 U/L (9-52); ALBUMIN 3.5 g/dL (3.5-5.0); ALKALINE PHOSPHATASE 47 U/L (38-126); ANION GAP 9 (5-19); ASPARTATE AMINO TRANSFERASE 15 U/L (14-36); BILIRUBIN,DIRECT 0.2 mg/dL (0.0-0.4); BILIRUBIN,TOTAL 0.4 mg/dL (0.2-1.3); BLOOD UREA NITROGEN 6 mg/dL (7-20); CALCIUM 9.3 mg/dL (8.4-10.2); CARBON DIOXIDE 21 mmol/L (22-30); CHLORIDE 108 mmol/L (98-107); GLUCOSE 72 mg/dL (75-110); POTASSIUM 3.5 mmol/L (3.6-5.0); SODIUM 137.9 mmol/L (137-145); TOTAL PROTEIN 6.5 g/dL (6.3-8.2)
[2018-12-09 14:53] VITALS: BP 121/72
== END 2018-12-09 14:57 | disposition home or self-care (01) ==
LOC: ER 09:46
DX: O26.899 Other specified pregnancy related conditions, unspecified trimester (principal); R10.30 Lower abdominal pain, unspecified; R51 Headache; O21.9 Vomiting of pregnancy, unspecified; O99.330 Smoking (tobacco) complicating pregnancy, unspecified trimester; F17.200 Nicotine dependence, unspecified, uncomplicated; O16.9 Unspecified maternal hypertension, unspecified trimester; Z3A.00 Weeks of gestation of pregnancy not specified; Z88.8 Allergy status to other drugs, medicaments and biological substances; Z88.5 Allergy status to narcotic agent
CPT/HCPCS: 96376; 99283; 96374; 96375; 36415; 85025; 80053; 81001; J1200; J2550

== ENCOUNTER 2018-12-24 11:44 | Emergency (ER) | payer MEDICAID ==
[2018-12-24] MEDS ORDERED: DIPHENHYDRAMINE HCL 50 MG/ML VIAL IV ONE (12:39)
[2018-12-24] MEDS ORDERED: PROMETHAZINE HCL INJ 25 MG/1 ML VIAL IV ONE (12:39)
[2018-12-24] MEDS ORDERED: RINGERS SOLUTION,LACTATED 1,000 ML IV PRN (12:39)
--- NOTE | 2018-12-24 13:20 | ER Document Report ---
ED General - General Chief Complaint: Anxiety Stated Complaint: POSSIBLE ANXIETY Time Seen by Provider: 12/24/18 12:21 Primary Care Provider: JUNIOR JOSEPH [Primary Care Provider] - Follow up as needed Mode of Arrival: Ambulatory Information source: Patient, Relative, [facility] Records Notes: 33-year-old female G7, at 22 weeks gestation per last ultrasound on October 24, 2018 presents with complaint of nausea, vomiting, diarrhea and anxiety. Patient has been under the care of PHOTO TECHNICIAN and states that she has been slowly being weaned from her psychiatric medications including Klonopin. She states that she has had multiple episodes of vomiting and diarrhea that started yesterday. She denies any abdominal pain, vaginal bleeding, vaginal discharge. She is currently taking vitamins. Denies any suicidal, homicidal ideation. Does have an upcoming appointment with OB tomorrow at 9 AM. Patient just finished telling me that she is being weaned off her Klonopin but is requesting Klonopin she was denied this request. TRAVEL OUTSIDE OF THE [place] IN LAST 30 DAYS: No - HPI Onset: Yesterday Onset/Duration: Gradual, Persistent Quality of pain: No pain Associated symptoms: Diarrhea, Nausea, Vomiting Exacerbated by: Denies Relieved by: Denies Similar symptoms previously: Yes Recently seen / treated by doctor: Yes - Related Data Allergies/Adverse Reactions: ketorolac tromethamine [From Toradol] Allergy (Verified 12/09/18 09:48) meperidine HCl [From Demerol] Allergy (Verified 12/09/18 09:48) metoclopramide HCl [From Reglan] Allergy (Verified 12/09/18 09:48) morphine [Morphine] Allergy (Verified 12/09/18 09:48) nalbuphine [From Nubain] Allergy (Verified 12/09/18 09:48) Hives tramadol [Tramadol] Allergy (Verified 12/09/18 09:48) Hives ondansetron HCl [From Zofran] Adverse Reaction (Verified 12/09/18 09:48) VOMITING Past Medical History - General Information source: Patient, [facility] Records - Social History Smoking Status: Former Smoker Frequency of alcohol use: None Drug Abuse: Prescription drugs Lives with: Spouse/Significant other Family History: Reviewed & Not Pertinent, Arthritis, DM, Hyperlipidemia, Hypertension Patient has suicidal ideation: No Patient has homicidal ideation: No - Past Medical History Cardiac Medical History: Reports: Hx Hypertension Neurological Medical History: Reports: Hx Migraine Renal/ Medical History: Denies: Hx Peritoneal Dialysis Musculoskeletal Medical History: Reports Hx Musculoskeletal Trauma Psychiatric Medical History: Reports: Hx Anxiety, Hx Attention Deficit Hyperactivity Disorder, Hx Bipolar Disorder, Hx Depression, Hx Post Traumatic Stress Disorder Traumatic Medical History: Reports: Hx Fractures - nose Past Surgical History: Reports: Hx Abdominal Surgery - LAPROSCOPY, Hx Gynecologic Surgery - d&c, lap for endometriosis, Hx Nose Surgery - Reconstruction for fracture, Other - facial reconstruction - Immunizations Immunizations up to date: Yes Hx Diphtheria, Pertussis, Tetanus Vaccination: Yes - 2010 Review of Systems - Review of Systems Notes: REVIEW OF SYSTEMS: CONSTITUTIONAL : Denies fever, chills, or sweats. Denies recent illness. Denies weight loss, recent hospitalizations. EENT: Denies visual changes, eye pain. Denies sore throat, oral lesions, difficulty swallowing. CARDIOVASCULAR: Denies chest pain. Denies palpitations. Denies lower extremity edema. RESPIRATORY: Denies cough. Denies shortness of breath, wheezing. GASTROINTESTINAL: Denies abdominal pain or distention. + nausea, vomiting, or diarrhea. Denies blood in vomitus, stools, or per rectum. Denies black, tarry stools. Denies constipation. GENITOURINARY: Denies difficulty urinating, painful urination, frequency, blood in urine, or vaginal discharge. MUSCULOSKELETAL: Denies back or neck pain or stiffness. Denies joint pain or swelling. SKIN: Denies rash, lesions or sores. HEMATOLOGIC : Denies easy bruising or bleeding. LYMPHATIC: Denies swollen glands. NEUROLOGICAL: Denies confusion or altered mental status. Denies loss of consciousness. Denies dizziness or lightheadedness. Denies headache. Denies weakness or paralysis. Denies problems difficulty with ambulation, slurred speech. Denies sensory loss, numbness, or tingling. Denies seizures. PSYCHIATRIC: + anxiety or stress. Denies depression, suicidal ideation, or homicidal ideation. Denies visual or auditory hallucinations. Physical Exam - Vital signs Vitals: Temp Pulse BP Pulse Ox 98.9 F 98 148/96 H 100 12/24/18 11:50 12/24/18 11:50 12/24/18 11:50 12/24/18 11:50 - Notes Notes: PHYSICAL EXAMINATION: GENERAL: Well-appearing, well-nourished and in no acute distress. HEAD: Atraumatic, normocephalic. EYES: Pupils equal round and reactive to light, extraocular movements intact, conjunctiva are normal. ENT: Nares patent, oropharynx clear without exudates. Moist mucous membranes. NECK: Normal range of motion, supple without lymphadenopathy LUNGS: Breath sounds clear to auscultation bilaterally and equal. No wheezes rales or rhonchi. HEART: Regular rate and rhythm without murmurs ABDOMEN: Gravid, soft, nontender, nondistended abdomen. No guarding, no rebound. No masses appreciated. Female : deferred Musculoskeletal: Normal range of motion, no pitting or edema. No cyanosis. NEUROLOGICAL: Cranial nerves grossly intact. Normal speech, normal gait. Normal sensory, motor exams PSYCH: Anxious but denies suicidal, homicidal ideation. SKIN: Warm, Dry, normal turgor, no rashes or lesions noted. Course - Re-evaluation Re-evalutation: Temp Pulse Resp BP Pulse Ox 98.1 F 80 16 118/67 100 12/24/18 14:55 12/24/18 14:55 12/24/18 14:55 12/24/18 14:55 12/24/18 14:55 12/24/18 18:02 33-year-old female G7, at 22 weeks gestation per last ultrasound on October 24, 2018 presents with complaint of nausea, vomiting, diarrhea and anxiety. Patient has been under the care of PHOTO TECHNICIAN and states that she has been slowly being weaned from her psychiatric medications including Klonopin. She states that she has had multiple episodes of vomiting and diarrhea that started yesterday. She denies any abdominal pain, vaginal bleeding, vaginal discharge. She is currently taking vitamins. Denies any suicidal, homicidal ideation. Does have an upcoming appointment with OB tomorrow at 9 AM. Patient just finished telling me that she is being weaned off her Klonopin but is requesting Klonopin she was denied this request. Vital signs reviewed and within normal limits. Patient is completely nontoxic in appearance. She does not appear dehydrated. She is in no acute distress. I am familiar with the patient and have seen her multiple times for psychiatric issues. She has a known drug addiction, bipolar disorder, PTSD. Patient was given 2 L of lactated Ringer's, Phenergan and Benadryl as she is allergic to Zofran and Reglan. Patient was reevaluated multiple times and every time is sleeping peacefully. She had no episodes of vomiting during her ED course. Patient was advised to keep her PHOTO TECHNICIAN appointment tomorrow at 9 AM. Patient was evaluated and treated as appropriate for the patient's presenting symptoms and complaint, with consideration of any critical or life threatening conditions that may be associated with their obtained history and exam as noted above. All results were discussed with patient. Patient provided the opportunity to ask questions, and express concerns. Patient was educated on treatments based on their presumed diagnosis as noted above. At this time we will discharge the patient with return precautions and follow-up recommendations. Verbal discharge instructions given a the bedside. Medication warnings reviewed. Patient is in agreement with this plan and has verbalized understanding of return precautions. After careful consideration I feel that that patient can be safely discharged from the emergency department, they were advised to followup with a primary care physician in 2-3 days. Dictation on this chart was performed using voice recognition software and may result in unintended grammatical, spelling, syntax or errors. - Vital Signs Vital signs: Temp Pulse Resp BP Pulse Ox 98.1 F 80 16 118/67 100 12/24/18 14:55 12/24/18 14:55 12/24/18 14:55 12/24/18 14:55 12/24/18 14:55 Discharge - Discharge Clinical Impression: Nausea vomiting and diarrhea, Second trimester Condition: Good Disposition: HOME, SELF-CARE Instructions: Antinausea Medication ([facility]), Diarrhea, Nonspecific ([facility]), Intravenous (IV) Fluids ([facility]) Additional Instructions: Your symptoms are likely due to a viral illness and should resolve in the next several days. You can take [id number] loperamide also known as Imodium as needed for diarrhea per box instructions. Continue to stay hydrated with plenty of solution such as Gatorade or Pedialyte. You are being prescribed Zofran to take as needed for nausea and vomiting. Please return if you develop severe abdominal pain, pass out, become unable to tolerate any oral fluids for 12 more hours, or any other symptoms that are concerning to you. Prescriptions: Promethazine HCl [Phenergan 25 mg Tablet] 25 mg PO Q8H PRN #12 tablet PRN Reason: For Nausea/Vomiting Referrals: LOCALMD,NO [Primary Care Provider] - Follow up as needed
[2018-12-24] MEDS ORDERED: PROMETHAZINE HCL 25 MG TABLET PO ONE (14:42)
[2018-12-24 14:55] VITALS: BP 118/67
== END 2018-12-24 14:55 | disposition home or self-care (01) ==
LOC: ER 11:44
DX: O21.9 Vomiting of pregnancy, unspecified (principal); O99.352 Diseases of the nervous system complicating pregnancy, second trimester; F41.9 Anxiety disorder, unspecified; O26.892 Other specified pregnancy related conditions, second trimester; R19.7 Diarrhea, unspecified; O16.2 Unspecified maternal hypertension, second trimester; Z3A.22 22 weeks gestation of pregnancy; Z79.899 Other long term (current) drug therapy; Z87.891 Personal history of nicotine dependence
CPT/HCPCS: 99284; 96361; 96374; 96375; 82962; J1200; J2550; J3490; J7120

== ENCOUNTER 2018-12-26 04:47 | Emergency (ER) | payer MEDICAID ==
--- NOTE | 2018-12-26 05:35 | ER Document Report ---
ED Medical Screen (RME) - General Chief Complaint: Shortness Of Breath Stated Complaint: ANKLE SWELLING AND SHORTNESS OF BREATH Time Seen by Provider: 12/26/18 05:27 Notes: 33-year-old female at 22 weeks gestation, has several different complaints, chief complaint is swelling in her legs, "sinus problems" with headache, and nausea/heartburn. Denies history of preeclampsia. TRAVEL OUTSIDE OF THE [place] IN LAST 30 DAYS: No - Related Data Allergies/Adverse Reactions: ketorolac tromethamine [From Toradol] Allergy (Verified 12/09/18 09:48) meperidine HCl [From Demerol] Allergy (Verified 12/09/18 09:48) metoclopramide HCl [From Reglan] Allergy (Verified 12/09/18 09:48) morphine [Morphine] Allergy (Verified 12/09/18 09:48) nalbuphine [From Nubain] Allergy (Verified 12/09/18 09:48) Hives tramadol [Tramadol] Allergy (Verified 12/09/18 09:48) Hives ondansetron HCl [From Zofran] Adverse Reaction (Verified 12/09/18 09:48) VOMITING Past Medical History - Social History Family history: None - Past Medical History Cardiac Medical History: Reports: Hx Hypertension Neurological Medical History: Reports: Hx Migraine Renal/ Medical History: Denies: Hx Peritoneal Dialysis Musculoskeltal Medical History: Reports Hx Musculoskeletal Trauma Psychiatric Medical History: Reports: Hx Anxiety, Hx Attention Deficit Hyperactivity Disorder, Hx Bipolar Disorder, Hx Depression, Hx Post Traumatic Stress Disorder Traumatic Medical History: Reports: Hx Fractures - nose Past Surgical History: Reports: Hx Abdominal Surgery - LAPROSCOPY, Hx Gynecologic Surgery - d&c, lap for endometriosis, Hx Nose Surgery - Reconstruction for fracture, Other - facial reconstruction - Immunizations Immunizations up to date: Yes Hx Diphtheria, Pertussis, Tetanus Vaccination: Yes - 2010 Physical Exam - Vital signs Vitals: Temp Pulse Resp BP Pulse Ox 98.9 F 98 20 149/99 H 100 12/26/18 04:53 12/26/18 04:53 12/26/18 04:53 12/26/18 04:53 12/26/18 04:53 - Extremities General lower extremity: Other - Borderline edema bilaterally Course - Re-evaluation Re-evalutation: Blood pressure elevated. Patient complaining of headache and is most recently. No hyperreflexia noted. Work-up pending. I have greeted and performed a rapid initial assessment of this patient. A comp rehensive ED assessment and evaluation of the patient, analysis of test results and completion of the medical decision making process will be conducted by additional ED providers. - Vital Signs Vital signs: Temp Pulse Resp BP Pulse Ox 98.9 F 98 20 149/99 H 100 12/26/18 04:53 12/26/18 04:53 12/26/18 04:53 12/26/18 04:53 12/26/18 04:53
[2018-12-26 05:53] LABS: APPEARANCE,URINE CLEAR; BILIRUBIN,URINE NEGATIVE (NEGATIVE); COLOR,URINE STRAW; GLUCOSE, URINE NEGATIVE (NEGATIVE); KETONES,URINE NEGATIVE (NEGATIVE); LEUKOCYTE ESTERASE,URINE NEGATIVE (NEGATIVE); NITRITE,URINE NEGATIVE (NEGATIVE); PROTEIN,URINE NEGATIVE (NEGATIVE); URINE SPECIFIC GRAVITY 1.006; UROBILINOGEN,URINE NEGATIVE mg/dL (<2.0)
[2018-12-26 06:19] LABS: ABSOLUTE BASOPHILS # (AUTO) 0.1 10^3/uL (0.0-0.2); ABSOLUTE EOSINOPHILS # (AUTO) 0.2 10^3/uL (0.0-0.6); ABSOLUTE LYMPHOCYTES (AUTO) 1.6 10^3/uL (0.5-4.7); ABSOLUTE MONOCYTES (AUTO) 0.5 10^3/uL (0.1-1.4); ABSOLUTE NEUT (AUTO) 3.9 10^3/uL (1.7-8.2); BASOPHILS % (AUTO) 0.8 % (0-2); EOSINOPHILS % (AUTO) 3.9 % (0-6); HEMATOCRIT 24.7 % (36.0-47.0); HEMOGLOBIN 8.3 g/dL (12.0-15.5); LYMPHOCYTES % (AUTO) 25.5 % (13-45); MEAN CORPUSCULAR HEMOGLOBIN 29.3 pg (27.0-33.4); MEAN CORPUSCULAR HGB CONC 33.5 g/dL (32.0-36.0); MEAN CORPUSCULAR VOLUME 88 fl (80-97); MONOCYTES % (AUTO) 8.6 % (3-13); PLATELET COUNT 185 10^3/uL (150-450); RED BLOOD COUNT 2.82 10^6/uL (3.72-5.28); RED CELL DISTRIBUTION WIDTH 13.6 % (11.5-14.0); SEGMENTED NEUTROPHILS % (AUTO) 61.2 % (42-78); TOTAL CELLS COUNTED % (AUTO) 100 %; WHITE BLOOD COUNT 6.3 10^3/uL (4.0-10.5)
--- NOTE | 2018-12-26 06:20 | ER Document Report ---
ED General - General Chief Complaint: Shortness Of Breath Stated Complaint: ANKLE SWELLING AND SHORTNESS OF BREATH Time Seen by Provider: 12/26/18 05:27 Notes: 33-year-old female 22 weeks history of hypertension presents with several symptoms including "I am retaining fluid in my left ankle and I can even see my ankle bone anymore" intermittent chest tightness and shortness of breath. She got more short of breath this morning in the ER when she noticed that her blood pressure was 150. She was taken off of antihypertensives and says that during she improved but then needs to be on meds when she is not . She denies vomiting abdominal pain loss of fluid or vaginal bleeding. She has a right ear and sinus pressure as well. TRAVEL OUTSIDE OF THE [place] IN LAST 30 DAYS: No - Related Data Allergies/Adverse Reactions: ketorolac tromethamine [From Toradol] Allergy (Verified 12/09/18 09:48) meperidine HCl [From Demerol] Allergy (Verified 12/09/18 09:48) metoclopramide HCl [From Reglan] Allergy (Verified 12/09/18 09:48) morphine [Morphine] Allergy (Verified 12/09/18 09:48) nalbuphine [From Nubain] Allergy (Verified 12/09/18 09:48) Hives tramadol [Tramadol] Allergy (Verified 12/09/18 09:48) Hives ondansetron HCl [From Zofran] Adverse Reaction (Verified 12/09/18 09:48) VOMITING Past Medical History - Social History Smoking Status: Never Smoker Family History: Reviewed & Not Pertinent, Arthritis, DM, Hyperlipidemia, Hypertension - Past Medical History Cardiac Medical History: Reports: Hx Hypertension Neurological Medical History: Reports: Hx Migraine Renal/ Medical History: Denies: Hx Peritoneal Dialysis Musculoskeletal Medical History: Reports Hx Musculoskeletal Trauma Psychiatric Medical History: Reports: Hx Anxiety, Hx Attention Deficit Hyperactivity Disorder, Hx Bipolar Disorder, Hx Depression, Hx Post Traumatic Stress Disorder Traumatic Medical History: Reports: Hx Fractures - nose Past Surgical History: Reports: Hx Abdominal Surgery - LAPROSCOPY, Hx Gynecologic Surgery - d&c, lap for endometriosis, Hx Nose Surgery - Reconstru ction for fracture, Other - facial reconstruction - Immunizations Immunizations up to date: Yes Hx Diphtheria, Pertussis, Tetanus Vaccination: Yes - 2010 Review of Systems - Review of Systems Notes: REVIEW OF SYSTEMS GEN: Denies fever, chills, weight loss ENT: Denies sore throat, nasal discharge, ear pain EYES: Denies blurry vision, eye pain, discharge CV: Denies chest pain, palpitations, edema RESP: Denies cough, shortness of breath, wheezing GI: Denies abdominal pain, nausea, vomiting, diarrhea MSK: Leg swelling SKIN: Denies rash, skin lesions LYMPH: Denies swollen glands/lymph nodes NEURO: Denies headache, focal weakness or numbness, dizziness PSYCH: Denies depression, suicidal or homicidal ideation PHYSICAL EXAMINATION General: No acute distress, well-nourished Head: Atraumatic, normocephalic ENT: Mouth normal, oropharynx moist, no exudates or tonsillar enlargement Eyes: Conjunctiva normal, pupils equal, lids normal Neck: No JVD, supple, no guarding CVS: Normal rate, regular rhythm, no murmurs Resp: No resp distress, equal and normal breath sounds bilaterally GI: Nondistended, soft, no tenderness to palpation, no rebound or guarding Ext: No deformities, no edema including in the affected extremity on the left, no calf tenderness, normal range of motion in upper and lower ext Back: No CVA or midline TTP Skin: No rash, warm Lymphatic: No lymphadeopathy noted Neuro: Awake, alert. Face symmetric. GCS 15. : Anxious appearing Physical Exam - Vital signs Vitals: Temp Pulse Resp BP Pulse Ox 98.9 F 98 20 149/99 H 100 12/26/18 04:53 12/26/18 04:53 12/26/18 04:53 12/26/18 04:53 12/26/18 04:53 Course - Re-evaluation Re-evalutation: 12/26/18 06:19 Well-appearing 33-year-old female in her second trimester (presenting with perceived leg edema although not truly on exam. I have a low suspicion for DVT in this patient given her lack of swelling and tenderness of the calf, she is hy pertensive and has been performing her procedure edema may be secondary to this. She does not seem short of breath has a normal respiratory rate and normal saturation, doubt pulmonary embolus. I will check for fluid retention CHF with labs and x-ray. Her ECG is normal. 12/26/18 06:53 ED work-up negative except for mild anemia. No protein in the urine. Preeclampsia ruled out. Discussed with Dr. Padilla from the head of her OB, who recommend starting labetalol, see prescription section. Discussed with patient. Prescription given. They will see her in the office in 1 week and she was give n the contact information. - Vital Signs Vital signs: Temp Pulse Resp BP Pulse Ox 98.9 F 98 20 149/99 H 100 12/26/18 04:53 12/26/18 04:53 12/26/18 04:53 12/26/18 04:53 12/26/18 04:53 - Laboratory Result Diagrams: 12/26/18 06:00 12/26/18 06:00 Laboratory results interpreted by me: 12/26/18 12/26/18 06:00 06:00 RBC 2.82 L Hgb 8.3 L Hct 24.7 L Potassium 3.5 L Chloride 108 H BUN 6 L Creatinine 0.39 L Glucose 72 L Uric Acid 1.9 L AST 13 L Discharge - Discharge Clinical Impression: Secondary hypertension, unspecified Ankle swelling Qualifiers: Laterality: unspecified laterality Qualified Code(s): M25.473 - Effusion, unspecified ankle Condition: Good Disposition: HOME, SELF-CARE Instructions: Hypertension in ([facility]) Additional Instructions: Spoke with the [facility] obstetrics clinic and he would like to see you next week. Their phone number is [phone]. They have recommended we start you on blood pressure medication to avoid pre-eclampsia. To the ER for worsening headache leg swelling, or any other concerning symptoms. Prescriptions: Labetalol HCl 100 mg PO BID #20 tablet
[2018-12-26] MEDS ORDERED: ACETAMINOPHEN 325 MG TABLET PO ONE (06:27)
[2018-12-26] MEDS ORDERED: DIPHENHYDRAMINE HCL 25 MG CAPSULE PO ONE (06:27)
--- NOTE | 2018-12-26 06:28 | RADIOLOGY REPORT (SQ) ---
CLINICAL HISTORY: sob COMPARISON: None. TECHNIQUE: XR CHEST 1 VIEW 12/26/2018 5:51 AM CDT FINDINGS: Cardiac silhouette is normal in size. Lungs are clear without consolidation, atelectasis, mass or edema. There is no pleural effusion. There is no pneumothorax. There are no acute osseous findings. IMPRESSION: Clear lungs.
[2018-12-26 06:31] LABS: ALANINE AMINOTRANSFERASE 16 U/L (9-52); ALBUMIN 3.6 g/dL (3.5-5.0); ALKALINE PHOSPHATASE 68 U/L (38-126); ANION GAP 9 (5-19); ASPARTATE AMINO TRANSFERASE 13 U/L (14-36); BILIRUBIN,DIRECT 0.2 mg/dL (0.0-0.4); BILIRUBIN,TOTAL 0.3 mg/dL (0.2-1.3); BLOOD UREA NITROGEN 6 mg/dL (7-20); CALCIUM 8.9 mg/dL (8.4-10.2); CARBON DIOXIDE 23 mmol/L (22-30); CHLORIDE 108 mmol/L (98-107); GLUCOSE 72 mg/dL (75-110); POTASSIUM 3.5 mmol/L (3.6-5.0); SODIUM 140.4 mmol/L (137-145); TOTAL PROTEIN 6.8 g/dL (6.3-8.2); URIC ACID 1.9 mg/dL (2.5-6.2)
[2018-12-26] MEDS ORDERED: LABETALOL HCL 200 MG TABLET PO ONE (07:02)
[2018-12-26 07:09] VITALS: BP 141/102
== END 2018-12-26 07:11 | disposition home or self-care (01) ==
LOC: ER 04:47
DX: M25.472 Effusion, left ankle (principal); I15.9 Secondary hypertension, unspecified; R06.02 Shortness of breath; Z88.6 Allergy status to analgesic agent
CPT/HCPCS: 99283; 36415; 83615; 84550; 85025; 80053; 81001; 83880; 71045; J3490 ×3

== ENCOUNTER 2019-01-01 02:21 | Emergency (ER) | payer MEDICAID ==
[2019-01-01] MEDS ORDERED: NORMAL SALINE 1000 ML 1,000 ML IV ONE (03:31)
[2019-01-01] MEDS ORDERED: PROMETHAZINE HCL INJ 25 MG/1 ML VIAL IM ONE (03:42)
[2019-01-01 04:04] LABS: APPEARANCE,URINE CLEAR; BILIRUBIN,URINE NEGATIVE (NEGATIVE); COLOR,URINE STRAW; GLUCOSE, URINE NEGATIVE (NEGATIVE); KETONES,URINE NEGATIVE (NEGATIVE); LEUKOCYTE ESTERASE,URINE NEGATIVE (NEGATIVE); NITRITE,URINE NEGATIVE (NEGATIVE); PROTEIN,URINE NEGATIVE (NEGATIVE); URINE SPECIFIC GRAVITY 1.003; UROBILINOGEN,URINE NEGATIVE mg/dL (<2.0)
[2019-01-01 04:40] LABS: ABSOLUTE EOSINOPHILS # (AUTO) 0.3 10^3/uL (0.0-0.6); ABSOLUTE LYMPHOCYTES (AUTO) 2.1 10^3/uL (0.5-4.7); ABSOLUTE MONOCYTES (AUTO) 0.5 10^3/uL (0.1-1.4); BASOPHILS % (AUTO) 0.5 % (0-2); EOSINOPHILS % (AUTO) 3.9 % (0-6); HEMATOCRIT 29.2 % (36.0-47.0); HEMOGLOBIN 9.6 g/dL (12.0-15.5); MEAN CORPUSCULAR HEMOGLOBIN 28.9 pg (27.0-33.4); MEAN CORPUSCULAR VOLUME 88 fl (80-97); MONOCYTES % (AUTO) 7.7 % (3-13); PLATELET COUNT 266 10^3/uL (150-450); RED BLOOD COUNT 3.33 10^6/uL (3.72-5.28); RED CELL DISTRIBUTION WIDTH 13.7 % (11.5-14.0); SEGMENTED NEUTROPHILS % (AUTO) 57.9 % (42-78); TOTAL CELLS COUNTED % (AUTO) 100 %; WHITE BLOOD COUNT 6.9 10^3/uL (4.0-10.5)
[2019-01-01 04:55] LABS: ALANINE AMINOTRANSFERASE 17 U/L (9-52); ALBUMIN 3.5 g/dL (3.5-5.0); ALKALINE PHOSPHATASE 61 U/L (38-126); ANION GAP 8 (5-19); ASPARTATE AMINO TRANSFERASE 15 U/L (14-36); BILIRUBIN,DIRECT 0.2 mg/dL (0.0-0.4); BILIRUBIN,TOTAL 0.4 mg/dL (0.2-1.3); BLOOD UREA NITROGEN 5 mg/dL (7-20); CALCIUM 9.2 mg/dL (8.4-10.2); CARBON DIOXIDE 23 mmol/L (22-30); CHLORIDE 108 mmol/L (98-107); GLUCOSE 71 mg/dL (75-110); POTASSIUM 3.6 mmol/L (3.6-5.0); SODIUM 139.1 mmol/L (137-145); TOTAL PROTEIN 6.8 g/dL (6.3-8.2)
--- NOTE | 2019-01-01 05:50 | ER Document Report ---
ED General - General Chief Complaint: Nausea Stated Complaint: POSSIBLE DEHYDRATION Time Seen by Provider: 01/01/19 03:09 TRAVEL OUTSIDE OF THE [place] IN LAST 30 DAYS: No - HPI Notes: Patient is a 33-year-old female with a history of bipolar, ADHD, PTSD, anxiety, hypertension who presents to the emergency department with a chief complaint of possible dehydration. She reports that she is around 5-1/2 months . Patient does deny abdominal pain. She denies vaginal bleeding or discharge. Patient does report feeling her baby move. Patient states that she feels like her mouth is dry and she is having nausea. Patient denies vomiting. Patient states that she attempted to take a Phenergan at home was hard to swallow. Patient states this was because her mouth was dry. Patient reports that she has had increased anxiety at home due to stress. Patient does see a psychiatrist and currently takes Klonopin 1 mg twice a day. Patient states that she did take her Klonopin around 8 PM. Patient states that at times she does hear voices in her head but states that this is not new and has been ongoing for months. Patient states she has been seeing her psychiatrist for this specific issue. P atient does deny suicidal or homicidal ideation. Patient blood glucose was in the 50s for EMS and patient was given oral glucose. States she did have one large meal today. - Related Data Allergies/Adverse Reactions: ketorolac tromethamine [From Toradol] Allergy (Verified 01/01/19 02:28) meperidine HCl [From Demerol] Allergy (Verified 01/01/19 02:28) metoclopramide HCl [From Reglan] Allergy (Verified 01/01/19 02:28) morphine [Morphine] Allergy (Verified 01/01/19 02:28) nalbuphine [From Nubain] Allergy (Verified 01/01/19 02:28) Hives tramadol [Tramadol] Allergy (Verified 01/01/19 02:28) Hives ondansetron HCl [From Zofran] Adverse Reaction (Verified 01/01/19 02:28) VOMITING Past Medical History - General Information source: Patient - Social History Smoking Status: Unknown if Ever Smoked Lives with: Spouse/Significant other Family History: Reviewed & Not Pertinent, Arthritis, DM, Hyperlipidemia, Hypertension Patient has suicidal ideation: No Patient has homicidal ideation: No - Past Medical History Cardiac Medical History: Reports: Hx Hypertension Pulmonary Medical History: Reports: None EENT Medical History: Reports: None Neurological Medical History: Reports: Hx Migraine Endocrine Medical History: Reports: None Renal/ Medical History: Reports: None. Denies: Hx Peritoneal Dialysis Malignancy Medical History: Reports: None GI Medical History: Reports: None Musculoskeletal Medical History: Reports Hx Musculoskeletal Trauma Skin Medical History: Reports None Psychiatric Medical History: Reports: Hx Anxiety, Hx Attention Deficit Hyperactivity Disorder, Hx Bipolar Disorder, Hx Depression, Hx Post Traumatic Stress Disorder Traumatic Medical History: Reports: Hx Fractures - nose Infectious Medical History: Reports: None Past Surgical History: Reports: Hx Abdominal Surgery - LAPROSCOPY, Hx Gynecologic Surgery - d&c, lap for endometriosis, Hx Nose Surgery - Reconstruction for fracture, Other - facial reconstruction - Immunizations Immunizations up to date: Yes Hx Diphtheria, Pertussis, Tetanus Vaccination: Yes - 2010 Review of Systems - Review of Systems Constitutional: No symptoms reported EENT: No symptoms reported Cardiovascular: No symptoms reported Respiratory: No symptoms reported Gastrointestinal: See HPI Genitourinary: No symptoms reported Female Genitourinary: No symptoms reported Musculoskeletal: No symptoms reported Skin: No symptoms reported Hematologic/Lymphatic: No symptoms reported Neurological/Psychological: No symptoms reported Physical Exam - Vital signs Vitals: Temp Pulse Resp BP Pulse Ox 98 F 90 15 135/100 H 100 01/01/19 02:28 01/01/19 02:28 01/01/19 02:28 01/01/19 02:28 01/01/19 02:28 Interpretation: Hypertensive - Notes Notes: GENERAL: Tearful, well-nourished and in no acute distress. HEAD: Atraumatic, normocephalic. EYES: Pupils equal round and reactive to light, extraocular movements intact, sclera anicteric, conjunctiva are normal. ENT: TMs normal, nares patent, oropharynx clear without exudates. Moist mucous somewhat dry. Mildly cracked lips. NECK: Normal range of motion, supple without lymphadenopathy or JVD. LUNGS: Breath sounds clear to auscultation bilaterally and equal. No wheezes rales or rhonchi. HEART: Regular rate and rhythm without murmurs, rubs or gallops. ABDOMEN: Soft, nontender, normoactive bowel sounds. Fundal height at umbilicus. No guarding, no rebound. No masses appreciated. EXTREMITIES: Normal range of motion, no pitting or edema. No clubbing or cyanosis. NEUROLOGICAL: Cranial nerves II through XII grossly intact. Normal speech, normal gait. PSYCH: Normal mood, normal affect. SKIN: Warm, Dry, normal turgor, no rashes or lesions noted. Course - Re-evaluation Re-evalutation: 01/01/19 Upon initial evaluation patient is resting comfortably on stretcher. Patient reports that she feels like her mouth is dry and that she needs IV fluids. Patient requesting a dose of Phenergan for her nausea. Patient states she attempted to take the Phenergan at home but had difficulty swallowing due to her dry mouth. Patient also reports taking the Klonopin 1 mg around 8 PM tonight for increased anxiety. Patient states that she has had increased anxiety recently with additional stresses at home. Patient does deny suicidal or homicidal ideation. Will administer IV fluids as well as obtain basic lab work. Will obtain heart tones. Patient does report feeling her baby move but unable to give me a specific amount per hour or how often. Denies vaginal b leeding or discharge. After receiving IV fluids patient resting comfortably on stretcher. Patient is sleeping and easy to arouse. Patient reports that Phenergan did help with her nausea. Patient requesting Haldol. Informed patient that the request for Haldol was denied due to her status. Patient informed to follow-up with her psychiatrist as well as her OB for further management. Patient verbalized understanding and is very cooperative and in agreement with treatment plan. Will attempt p.o. challenge 01/01/19 06:16 Patient is sitting upright on stretcher eating crackers and tolerating juice. Vital signs are stable and patient is not hypertensive. Patient is afebrile. Patient is not tachycardic. Discussed discharge plan with patient. Educated patient on the importance of taking a vitamin as well as iron supplementation due to anemia. Nurse had obtained heart tones in the 140s. - Vital Signs Vital signs: Temp Pulse Resp BP Pulse Ox 98.3 F 88 16 121/76 99 01/01/19 06:16 01/01/19 06:16 01/01/19 06:16 01/01/19 06:16 01/01/19 06:16 - Laboratory Result Diagrams: 01/01/19 04:12 01/01/19 04:12 Laboratory results interpreted by me: 01/01/19 01/01/19 04:12 04:12 RBC 3.33 L Hgb 9.6 L Hct 29.2 L Chloride 108 H BUN 5 L Creatinine 0.45 L Glucose 71 L 01/01/19 05:56 Patient's hemoglobin is 9.6, although this has improved by one-point compared to her most recent visit. Patient's glucose is 71, patient is attempting p.o. challenge. She does not appear to be dehydrated from her urine or blood work. Discharge - Discharge Clinical Impression: Nausea, Hypoglycemia Condition: Stable Disposition: HOME, SELF-CARE Additional Instructions: Today you were seen in the emergency department for nausea. We have given you a dose of Phenergan as well as IV fluids. Your urine and blood work did not show that you are dehydrated. Your hemoglobin was slightly low at 9.1 although this has improved since her previous visit. Please follow-up with your [facility] for management of your and anemia. Please follow-up with your psychiatrist for your mental health issues and alterations with your medications. Please return to the emergency department for any worsening signs or symptoms to include severe abdominal pain, vaginal bleeding, uncontrollable vomiting, or any other concerning signs or symptoms. Your glucose was on the lower side. To help prevent your sugar from dropping please eat small frequent meals throughout the day. Nausea or Vomiting, Nonspecific Vomiting (or nausea without vomiting) can be caused by many different problems. Of course, it can mean that something's wrong with the stomach, such as "stomach flu," ulcers, or inflammation. But it can also be a symptom of a problem that has nothing to do with the stomach or intestines. Vomiting is common with severe headaches, earaches, and tonsillitis. We see it with pneumonia or heart attacks. Drugs can cause nausea. Many abdominal problems caus e vomiting; for example, gallstones, kidney stones, pancreatitis, and intestinal obstruction (blocked bowels). In most cases, curing the vomiting depends on fixing the problem that caused it. For temporary relief, we may use an anti-nausea medicine. For home use, we can prescribe suppositories, chewable pills, pills that dissolve in the mouth, or liquid anti-nausea drugs. If the vomiting seems to be caused by a problem in the stomach, acid-suppressing drugs may be prescribed as well. It's important to avoid dehydration. Sip clear liquids. Take increasing amounts of fluid over the first 24 hours. Then start small amounts of bland foods (such as dry toast, applesauce, mashed potato). Avoid aspirin, tobacco, and alcohol. Gradually resume your usual diet. If the vomiting worsens, if the problem that's making you vomit worsens, or if there's evidence of bleeding in the stomach (such as black, tarry stool, bloody or black vomit, or lightheadedness), you should return immediately. Call your doctor if you aren't improved in 24 to 36 hours. Hypoglycemia You have suffered an episode of hypoglycemia (low blood sugar). Typical symptoms of hypoglycemia are shaking, sweating, headache, and confusion. When severe, unconsciousness or seizure may occur. Hypoglycemia occurs when a person taking insulin or diabetes pills has a change in the amount of blood sugar available -- due to exercise, decreased food intake, or alcohol. Should you feel symptoms of hypoglycemia again, immediately take some form of sugar such as sweetened juice. As the reaction subsides, eat a complex carbohydrate such as bread. If possible, check your blood sugar using a chemical strip. If episodes are occurring without obvious explanation, contact your phys ician for further evaluation.
[2019-01-01 06:17] VITALS: BP 121/76
== END 2019-01-01 06:48 | disposition home or self-care (01) ==
LOC: ER 02:21
DX: O26.899 Other specified pregnancy related conditions, unspecified trimester (principal); R11.0 Nausea; R68.2 Dry mouth, unspecified; O99.280 Endocrine, nutritional and metabolic diseases complicating pregnancy, unspecified trimester; E16.2 Hypoglycemia, unspecified; O99.340 Other mental disorders complicating pregnancy, unspecified trimester; F41.9 Anxiety disorder, unspecified; Z79.899 Other long term (current) drug therapy; O16.9 Unspecified maternal hypertension, unspecified trimester; Z3A.00 Weeks of gestation of pregnancy not specified; Z88.8 Allergy status to other drugs, medicaments and biological substances; Z88.5 Allergy status to narcotic agent
CPT/HCPCS: 99284; 96372; 96360; 96361; 36415; 82962; 85025; 80053; 81001; J2550; J7030

== ENCOUNTER 2019-01-06 13:57 | Emergency (ER) | payer MEDICAID ==
--- NOTE | 2019-01-06 14:15 | ER Document Report ---
ED Medical Screen (RME) - General Chief Complaint: Breathing Difficulty Stated Complaint: DIFFICULTY BREATHING Time Seen by Provider: 01/06/19 14:14 Mode of Arrival: Wheelchair Information source: Patient Notes: 33-year-old female presented to ED for complaint of nausea vomiting headache dizziness lightheaded feeling like she is going to pass out. She states she is 22 weeks . She has a history of ADHD and is on Adderall, PTSD, insomnia, high blood pressure, she states she is 5. She also has a history of anxiety endometriosis. She states she has had abdominal surgery and no surgery. She does smoke a pack a day. I have greeted and performed a rapid initial assessment of this patient. A comprehensive ED assessment and evaluation of the patient, analysis of test r esults and completion of medical decision making process will be conducted by an additional ED providers. Dictation of this chart was performed using voice recognition software; therefore, there may be some unintended grammatical errors. TRAVEL OUTSIDE OF THE [place] IN LAST 30 DAYS: No - Related Data Allergies/Adverse Reactions: ketorolac tromethamine [From Toradol] Allergy (Verified 01/06/19 14:00) meperidine HCl [From Demerol] Allergy (Verified 01/06/19 14:00) metoclopramide HCl [From Reglan] Allergy (Verified 01/06/19 14:00) morphine [Morphine] Allergy (Verified 01/06/19 14:00) nalbuphine [From Nubain] Allergy (Verified 01/06/19 14:00) Hives tramadol [Tramadol] Allergy (Verified 01/06/19 14:00) Hives ondansetron HCl [From Zofran] Adverse Reaction (Verified 01/06/19 14:00) VOMITING Past Medical History - Social History Family history: None - Past Medical History Cardiac Medical History: Reports: Hx Hypertension Neurological Medical History: Reports: Hx Migraine Renal/ Medical History: Denies: Hx Peritoneal Dialysis Musculoskeltal Medical History: Reports Hx Musculoskeletal Trauma Psychiatric Medical History: Reports: Hx Anxiety, Hx Attention Deficit Hyperactivity Disorder, Hx Bipolar Disorder, Hx Depression, Hx Post Traumatic Stress Disorder Traumatic Medical History: Reports: Hx Fractures - nose Past Surgical History: Reports: Hx Abdominal Surgery - LAPROSCOPY, Hx Gynecologic Surgery - d&c, lap for endometriosis, Hx Nose Surgery - Recon struction for fracture, Other - facial reconstruction - Immunizations Immunizations up to date: Yes Hx Diphtheria, Pertussis, Tetanus Vaccination: Yes - 2010 Physical Exam - Vital signs Vitals: Temp Pulse Resp BP Pulse Ox 98.8 F 93 16 128/81 H 100 01/06/19 14:08 01/06/19 14:08 01/06/19 14:08 01/06/19 14:08 01/06/19 14:08 Course - Vital Signs Vital signs: Temp Pulse Resp BP Pulse Ox 98.8 F 93 16 128/81 H 100 01/06/19 14:08 01/06/19 14:08 01/06/19 14:08 01/06/19 14:08 01/06/19 14:08
[2019-01-06] MEDS ORDERED: PROMETHAZINE HCL 25 MG SUPP.RECT PR ONE (14:22)
[2019-01-06] MEDS ORDERED: NORMAL SALINE 1000 ML 1,000 ML IV ONE ×2 (14:24→15:17)
[2019-01-06 14:58] LABS: ABSOLUTE EOSINOPHILS # (AUTO) 0.2 10^3/uL (0.0-0.6); ABSOLUTE LYMPHOCYTES (AUTO) 1.4 10^3/uL (0.5-4.7); ABSOLUTE MONOCYTES (AUTO) 0.5 10^3/uL (0.1-1.4); ABSOLUTE NEUT (AUTO) 2.5 10^3/uL (1.7-8.2); BASOPHILS % (AUTO) 0.8 % (0-2); EOSINOPHILS % (AUTO) 4.9 % (0-6); HEMATOCRIT 25.5 % (36.0-47.0); HEMOGLOBIN 8.6 g/dL (12.0-15.5); LYMPHOCYTES % (AUTO) 29.8 % (13-45); MEAN CORPUSCULAR HGB CONC 33.7 g/dL (32.0-36.0); MEAN CORPUSCULAR VOLUME 86 fl (80-97); MONOCYTES % (AUTO) 11.2 % (3-13); PLATELET COUNT 202 10^3/uL (150-450); RED BLOOD COUNT 2.96 10^6/uL (3.72-5.28); RED CELL DISTRIBUTION WIDTH 13.1 % (11.5-14.0); SEGMENTED NEUTROPHILS % (AUTO) 53.3 % (42-78); TOTAL CELLS COUNTED % (AUTO) 100 %; WHITE BLOOD COUNT 4.6 10^3/uL (4.0-10.5)
[2019-01-06 15:03] LABS: APPEARANCE,URINE CLEAR; BILIRUBIN,URINE NEGATIVE (NEGATIVE); COLOR,URINE YELLOW; GLUCOSE, URINE NEGATIVE (NEGATIVE); KETONES,URINE TRACE mg/dL (NEGATIVE); LEUKOCYTE ESTERASE,URINE NEGATIVE (NEGATIVE); NITRITE,URINE NEGATIVE (NEGATIVE); PROTEIN,URINE NEGATIVE (NEGATIVE); URINE SPECIFIC GRAVITY 1.012
[2019-01-06 15:10] LABS: ALANINE AMINOTRANSFERASE 17 U/L (9-52); ALBUMIN 3.7 g/dL (3.5-5.0); ALKALINE PHOSPHATASE 56 U/L (38-126); ANION GAP 10 (5-19); ASPARTATE AMINO TRANSFERASE 14 U/L (14-36); BILIRUBIN,DIRECT 0.1 mg/dL (0.0-0.4); BILIRUBIN,TOTAL 0.6 mg/dL (0.2-1.3); BLOOD UREA NITROGEN 4 mg/dL (7-20); CARBON DIOXIDE 23 mmol/L (22-30); CHLORIDE 106 mmol/L (98-107); GLUCOSE 83 mg/dL (75-110); LIPASE 50.7 U/L (23-300); POTASSIUM 3.4 mmol/L (3.6-5.0); SODIUM 138.7 mmol/L (137-145)
[2019-01-06] MEDS ORDERED: DIPHENHYDRAMINE HCL 50 MG/ML VIAL IV ONE (15:17)
--- NOTE | 2019-01-06 15:18 | ER Document Report ---
ED General - General Chief Complaint: Breathing Difficulty Stated Complaint: DIFFICULTY BREATHING Time Seen by Provider: 01/06/19 14:14 Mode of Arrival: Wheelchair Information source: Patient TRAVEL OUTSIDE OF THE [place] IN LAST 30 DAYS: No - HPI Patient complains to provider of: Shortness of breath, palpitations, lightheadedness, near syncope Onset: Yesterday Onset/Duration: Sudden Quality of pain: No pain Severity: None Context: 22 weeks Associated symptoms: denies: Chills, Fever Exacerbated by: Denies Relieved by: Denies Similar symptoms previously: Yes Recently seen / treated by doctor: No Notes: Patient is a 33-year-old -[place]ian female who is currently 22 weeks coming in today with chief complaint of difficulty breathing, short of breath, lightheaded, dizzy, feeling like she could pass out since yesterday. Patient suffers from anxiety. Takes Klonopin for this. States the symptoms feel worse than her typical anxiety. She continues to smoke a pack of cigarettes a day. She takes ADHD meds and benzodiazepines during the . - Related Data Allergies/Adverse Reactions: ketorolac tromethamine [From Toradol] Allergy (Verified 01/06/19 14:00) meperidine HCl [From Demerol] Allergy (Verified 01/06/19 14:00) metoclopramide HCl [From Reglan] Allergy (Verified 01/06/19 14:00) morphine [Morphine] Allergy (Verified 01/06/19 14:00) nalbuphine [From Nubain] Allergy (Verified 01/06/19 14:00) Hives tramadol [Tramadol] Allergy (Verified 01/06/19 14:00) Hives ondansetron HCl [From Zofran] Adverse Reaction (Verified 01/06/19 14:00) VOMITING Past Medical History - General Information source: Patient - Social History Smoking Status: Current Every Day Smoker Family History: Reviewed & Not Pertinent, Arthritis, DM, Hyperlipidemia, Hypertension Patient has suicidal ideation: No Patient has homicidal ideation: No - Past Medical History Cardiac Medical History: Reports: Hx Hypertension Neurological Medical History: Reports: Hx Migraine Renal/ Medical History: Denies: Hx Peritoneal Dialysis Musculoskeletal Medical History: Reports Hx Musculoskeletal Trauma Psychiatric Medical History: Reports: Hx Anxiety, Hx Attention Deficit Hyperactivity Disorder, Hx Bipolar Disorder, Hx Depression, Hx Post Traumatic Stress Disorder Traumatic Medical History: Reports: Hx Fractures - nose Past Surgical History: Reports: Hx Abdominal Surgery - LAPROSCOPY, Hx Gynecologic Surgery - d&c, lap for endometriosis, Hx Nose Surgery - Reconstruction for fracture, Other - facial reconstruction - Immunizations Immunizations up to date: Yes Hx Diphtheria, Pertussis, Tetanus Vaccination: Yes - 2010 Review of Systems - Review of Systems Notes: Constitutional: No fevers. No chills. EENT: No eye redness. No eye pain. No ear pain. No sore throat. Cardiovascular: No chest pain. No palpitations. Respiratory: Positive shortness of breath. Gastrointestinal: No abdominal pain. No nausea, vomiting, or diarrhea. Genitourinary: Atraumatic. No lesions. No pain. No discharge. Musculoskeletal: Atraumatic. No swelling. No deformities. Skin: No rash or lesions. Lymphatic: No swollen lymph nodes. Neurologic: Positive for headache, positive for near-syncope Psychiatric: No suicidal or homicidal ideation. Physical Exam - Vital signs Vitals: Temp Pulse Resp BP Pulse Ox 98.8 F 93 16 128/81 H 100 01/06/19 14:08 01/06/19 14:08 01/06/19 14:08 01/06/19 14:08 01/06/19 14:08 - Notes Notes: General: Well-developed, well-nourished. In no acute distress. Non-toxic appearing. Cardiac: Well-perfused. Regular rate and rhythm. No murmurs, rubs, or gallops. Pulmonary: No respiratory distress. No cyanosis. Bilateral lung bai are clear to auscultation. Abdominal: Non-distended. Non-rigid. Bowels sounds are present in all four quadrants. No guarding or rebound. HEENT: Head is atraumatic. Conjunctivae not reddened. No tearing. PERRL. EOMI. Orbits atraumatic. No periorbital swelling or erythema. Oropharynx is without erythema, swelling, or exudates. Neck: Supple. No adenopathy. No meningismus. Dermatologic: Warm with good turgor. No rash. Atraumatic. Chest: Atraumatic. No chest wall tenderness to palpation. Musculoskeletal: Moves all extremities well. No range of motion deficits. no muscular or joint tenderness. No paraspinal muscle tenderness. no midline spinal tenderness or step-off. Genitourinary: Examination deferred Neurologic: No gross neurologic deficits. Psychiatric: Normal mood. Course - Re-evaluation Re-evalutation: 01/06/19 15:18 Patient is here for difficulty breathing and dizziness and lightheadedness and near syncope. States it is different from her typical anxiety. She is very and smoking a pack a day of cigarettes. We will check troponin and EKG. We will get a d-dimer. If she does not rule out she will need a CT scan to rule out PE. 01/06/19 18:26 Labs were normal. Troponin negative EKG looked good. Patient has had stable vital signs throughout. She was given a little bit of nasal cannula oxygen for comfort. She is anemic but she is anemic all the time. I discussed her presentation with the HUMAN RELATIONS TEACHER on-call. Patient will be discharged from the ER service and she will be sent to labor and delivery to be evaluated for her ongoing abdominal symptoms. - Vital Signs Vital signs: Temp Pulse Resp BP Pulse Ox 98.8 F 93 16 128/81 H 100 01/06/19 14:08 01/06/19 14:08 01/06/19 14:08 01/06/19 14:08 01/06/19 14:08 - Laboratory Result Diagrams: 01/06/19 14:35 01/06/19 14:35 Laboratory results interpreted by me: 01/06/19 01/06/19 01/06/19 14:35 14:35 14:35 RBC 2.96 L Hgb 8.6 L Hct 25.5 L D-Dimer Potassium 3.4 L BUN 4 L Creatinine 0.43 L Beta HCG, Quant 34424.00 H Urine Ketones TRACE H Urine Urobilinogen 2.0 H Urine Ascorbic Acid 20 H 01/06/19 14:35 RBC Hgb Hct D-Dimer 0.73 H Potassium BUN Creatinine Beta HCG, Quant Urine Ketones Urine Urobilinogen Urine Ascorbic Acid Discharge - Discharge Clinical Impression: Second trimester , Shortness of breath, Anxiety Anemia Qualifiers: Anemia type: unspecified type Qualified Code(s): D64.9 - Anemia, unspecified Condition: Good Disposition: HOME, SELF-CARE Instructions: ([facility]), Anxiety ([facility]), Dyspnea, Nonspecific ([facility]), Anemia, Iron Deficiency ([facility]) Additional Instructions: Follow-up with the folfl at labor and delivery to have your checked after your discharge from the emergency department Referrals: ZEE JACKSON MD [ACTIVE STAFF] - 01/06/19
[2019-01-06 15:19] LABS: URINE AMPHETAMINES SCREEN UNCONFIRMED POSITIVE; URINE BARBITURATES SCREEN NEGATIVE; URINE BENZODIAZEPINES SCREEN UNCONFIRMED POSITIVE; URINE COCAINE SCREEN NEGATIVE; URINE MARIJUANA (THC) SCREEN NEGATIVE; URINE METHADONE SCREEN NEGATIVE; URINE PHENCYCLIDINE SCREEN NEGATIVE
--- NOTE | 2019-01-06 18:04 | RADIOLOGY REPORT (SQ) ---
EXAM DESCRIPTION: CTA CHEST COMPLETED DATE/TIME: 01/06/2019 5:35 pm REASON FOR STUDY: short of breath near syncope, smokes COMPARISON: 12/26/2018 and earlier TECHNIQUE: CT scan of the chest performed using helical scanning technique with dynamic intravenous contrast injection. Images reviewed with lung, soft tissue and bone windows. Reconstructed coronal and sagittal MPR images reviewed. Additional 3 dimensional post-processing performed to develop Maximal Intensity Projection images (UT P). All images stored on PACS. All CT scanners at this facility use dose modulation, iterative reconstruction, and/or weight based d osing when appropriate to reduce radiation dose to as low as reasonably achievable (ALARA). [facility]: Dose Right [facility]: CareDose [facility]: Dose Right [facility]: Teradose 4D [facility]: Smart Glide CONTRAST TYPE AND DOSE: contrast/concentration: Isovue 350.00 mg/ml; Total Contrast Delivered: 50.0 ml; Total Saline Delivered: 75.0 ml 50 mL IV of Isovue 350- low osmolar. Contrast bolus adequate for pulmonary arteries and aorta. RENAL FUNCTION: BUN 4 creatinine 0.43 RADIATION DOSE: CT Rad equipment meets quality standard of care and radiation dose reduction techniq ues were employed. CTDIvol: 16.5 - 17.9 mGy. DLP: 667 mGy-cm. . LIMITATIONS: None. FINDINGS: LUNGS AND PLEURA: No masses, consolidations, or pneumothorax. No pleural effusions or ple ural calcifications. AORTA AND GREAT VESSELS: No aneurysm. No dissection. HEART: No pericardial effusion. No significant coronary artery calcifications. PULMONARY ARTERIES: No emboli visualized in the main pulmonary arteries or the segmental branches. HILAR AND MEDIASTINAL STRUCTURES: No identified masses or abnormal nodes. HARDWARE: None in the chest. UPPER ABDOMEN: No significant findings. Limited exam. THYROID AND OTHER SOFT TISSUES: No masses. No adenopathy. BONES: No acute or significant finding. 3D MIPS: Confirm above findings. OTHER: No other significant finding. IMPRESSION: NORMAL CTA OF THE CHEST. NO PULMONARY EMBOLI. COMMENT: Quality ID # [id number]: Final reports with documentation of one or more dose reduction techniques (e.g., Automated exposure control, adjustment of the mA and/or kV according to patient size, use of iterative reconstruction technique) TECHNICAL DOCUMENTATION: JOB ID: [id number] [employer]- All Rights Reserved Reading location - IP/workstation name: [email or web address]
[2019-01-06 18:42] VITALS: BP 127/71
--- NOTE | 2019-01-06 22:08 | EKG REPORT ---
SEVERITY:- BORDERLINE ECG - SINUS RHYTHM BORDERLINE T ABNORMALITIES, ANTERIOR LEADS : Confirmed by: Dustin Andres MD 06-Jan-2019 22:07:34
== END 2019-01-06 18:42 | disposition home or self-care (01) ==
LOC: ER 13:57
DX: O99.342 Other mental disorders complicating pregnancy, second trimester (principal); F41.9 Anxiety disorder, unspecified; F90.9 Attention-deficit hyperactivity disorder, unspecified type; O99.012 Anemia complicating pregnancy, second trimester; D64.9 Anemia, unspecified; O26.892 Other specified pregnancy related conditions, second trimester; R06.02 Shortness of breath; R55 Syncope and collapse; R00.2 Palpitations; R51 Headache; O99.332 Smoking (tobacco) complicating pregnancy, second trimester; F17.210 Nicotine dependence, cigarettes, uncomplicated; O16.2 Unspecified maternal hypertension, second trimester; Z3A.22 22 weeks gestation of pregnancy; Z79.899 Other long term (current) drug therapy; Z88.8 Allergy status to other drugs, medicaments and biological substances; Z88.5 Allergy status to narcotic agent
CPT/HCPCS: 93005; 99284; 96361; 96374; 36415; 84702; 83690; 85025; 80053; 81001; 84484; 80307; 85379; 71275; 93010; J1200; J3490; J7030

== ENCOUNTER 2019-01-06 19:09 | Outpatient (CLI) | payer MEDICAID ==
[2019-01-06 21:14] LABS: RUBELLA IGG ANTIBODY 6.26 IU/mL
[2019-01-06 21:28] LABS: RUBELLA INTERPRETATION NEGATIVE
[2019-01-08 14:37] LABS: HEPATITIS C VIRUS AB 0.1 s/co ratio (0.0-0.9)
[2019-01-08 14:43] LABS: HEPATITS B SURFACE ANTIGEN Negative (Negative)
== END 2019-01-06 20:45 | disposition home or self-care (01) ==
LOC: LC 19:09
PROVIDERS: ATTEND Obstetrics & Gynecology
PROC: 4A1HXCZ Monitoring of Products of Conception, Cardiac Rate, External Approach (ICD-10-PCS; principal; 2019-01-06)
DX: O26.892 Other specified pregnancy related conditions, second trimester (principal); R10.9 Unspecified abdominal pain; Z3A.23 23 weeks gestation of pregnancy
CPT/HCPCS: 36415; 86592; 86701; 86762; 86803; 86804; 87340; 94760

== ENCOUNTER 2019-01-19 22:18 | Outpatient (CLI) | payer MEDICAID ==
[2019-01-19 23:44] LABS: APPEARANCE,URINE SLIGHTLY-CLOUDY; BILIRUBIN,URINE NEGATIVE (NEGATIVE); COLOR,URINE YELLOW; GLUCOSE, URINE NEGATIVE (NEGATIVE); KETONES,URINE NEGATIVE (NEGATIVE); LEUKOCYTE ESTERASE,URINE NEGATIVE (NEGATIVE); NITRITE,URINE NEGATIVE (NEGATIVE); PROTEIN,URINE NEGATIVE (NEGATIVE); UROBILINOGEN,URINE NEGATIVE mg/dL (<2.0)
[2019-01-20] MEDS ORDERED: PROMETHAZINE HCL 25 MG SUPP.RECT PR ONE ×2 (00:06→00:30)
[2019-01-20 00:07] LABS: URINE AMPHETAMINES SCREEN NEGATIVE; URINE BARBITURATES SCREEN NEGATIVE; URINE BENZODIAZEPINES SCREEN NEGATIVE; URINE COCAINE SCREEN NEGATIVE; URINE MARIJUANA (THC) SCREEN NEGATIVE; URINE METHADONE SCREEN NEGATIVE
[2019-01-20 00:16] LABS: URINE PHENCYCLIDINE SCREEN NEGATIVE
[2019-01-20] MEDS ORDERED: FAMOTIDINE INJ/PF 20 MG/2 ML SDV IV ONE (00:30)
== END 2019-01-20 01:10 | disposition home or self-care (01) ==
LOC: LC 22:18
PROVIDERS: ATTEND Obstetrics & Gynecology
PROC: 4A1HXCZ Monitoring of Products of Conception, Cardiac Rate, External Approach (ICD-10-PCS; principal; 2019-01-19)
DX: O47.02 False labor before 37 completed weeks of gestation, second trimester (principal); Z3A.25 25 weeks gestation of pregnancy
CPT/HCPCS: 59899; 81001; 80307; J3490

== ENCOUNTER 2019-01-21 19:35 | Emergency (ER) | payer MEDICAID ==
[2019-01-21] MEDS ORDERED: PROMETHAZINE HCL INJ 25 MG/1 ML VIAL IM ONE (20:14)
--- NOTE | 2019-01-21 20:15 | ER Document Report ---
ED Medical Screen (RME) - General Chief Complaint: Headache Stated Complaint: HEADACHE,NAUSEA Time Seen by Provider: 01/21/19 20:11 Mode of Arrival: Ambulatory Information source: Patient Notes: Patient presents complaining of frontal headache pain for the past 2 days. Patient states she had nausea and vomiting x4 episodes. Patient denies any abdominal pain or diarrhea. Patient denies any urinary symptoms. Patient is 25 weeks . Patient states that she typically has to get Phenergan IM and Benadryl IV to manage her headache and vomiting symptoms. I have greeted and performed a rapid initial assessment of this patient. A comprehensive ED assessment and evaluation of the patient, analysis of test results and completion of the medical decision making process will be conducted by additional ED providers. TRAVEL OUTSIDE OF THE [place] IN LAST 30 DAYS: No - Related Data Allergies/Adverse Reactions: ketorolac tromethamine [From Toradol] Allergy (Verified 01/19/19 23:27) meperidine HCl [From Demerol] Allergy (Verified 01/19/19 23:27) metoclopramide HCl [From Reglan] Allergy (Verified 01/19/19 23:27) morphine [Morphine] Allergy (Verified 01/19/19 23:27) nalbuphine [From Nubain] Allergy (Verified 01/19/19 23:27) Hives tramadol [Tramadol] Allergy (Verified 01/19/19 23:27) Hives ondansetron HCl [From Zofran] Adverse Reaction (Verified 01/19/19 23:27) VOMITING Past Medical History - Social History Family history: None - Past Medical History Cardiac Medical History: Reports: Hx Hypertension Neurological Medical History: Reports: Hx Migraine Renal/ Medical History: Denies: Hx Peritoneal Dialysis Musculoskeltal Medical History: Reports Hx Musculoskeletal Trauma Psychiatric Medical History: Reports: Hx Anxiety, Hx Attention Deficit Hyperactivity Disorder, Hx Bipolar Disorder, Hx Depression, Hx Post Traumatic Stress Disorder Traumatic Medical History: Reports: Hx Fractures - nose Past Surgical History: Reports: Hx Abdominal Surgery - LAPROSCOPY, Hx Gynecologic Surgery - d&c, lap for endometriosis, Hx Nose Surgery - Reconstructi on for fracture, Other - facial reconstruction - Immunizations Immunizations up to date: Yes Hx Diphtheria, Pertussis, Tetanus Vaccination: Yes - 2010 Physical Exam - Vital signs Vitals: Temp Pulse Resp BP Pulse Ox 99.0 F 109 H 16 141/86 H 100 01/21/19 19:40 01/21/19 19:40 01/21/19 19:40 01/21/19 19:40 01/21/19 19:40 - Neurological Cognition: Normal Orientation: AAOx4 Ron Coma Scale Eye Opening: Spontaneous [place] Coma Scale Verbal: Oriented [place] Coma Scale Motor: Obeys Commands Ron Coma Scale Total: 15 Course - Vital Signs Vital signs: Temp Pulse Resp BP Pulse Ox 99.0 F 109 H 16 141/86 H 100 01/21/19 19:40 01/21/19 19:40 01/21/19 19:40 01/21/19 19:40 01/21/19 19:40
[2019-01-21] MEDS: DIPHENHYDRAMINE HCL 50 MG/ML VIAL IV ONE ×2 (21:27→21:50)
[2019-01-21] MEDS: NORMAL SALINE 1000 ML 1,000 ML IV ONE (21:28)
[2019-01-21] MEDS ORDERED: DIPHENHYDRAMINE HCL 50 MG/ML VIAL IM ONE (21:42)
[2019-01-21 22:07] LABS: APPEARANCE,URINE SLIGHTLY-CLOUDY; BILIRUBIN,URINE NEGATIVE (NEGATIVE); COLOR,URINE YELLOW; GLUCOSE, URINE NEGATIVE (NEGATIVE); KETONES,URINE NEGATIVE (NEGATIVE); LEUKOCYTE ESTERASE,URINE NEGATIVE (NEGATIVE); NITRITE,URINE NEGATIVE (NEGATIVE); PROTEIN,URINE NEGATIVE (NEGATIVE); URINE SPECIFIC GRAVITY 1.013
[2019-01-22] MEDS ORDERED: PROMETHAZINE HCL INJ 25 MG/1 ML VIAL IV ONE (00:38)
[2019-01-22] MEDS ORDERED: DIPHENHYDRAMINE HCL 50 MG/ML VIAL IV ONE (00:38)
--- NOTE | 2019-01-22 00:56 | ER Document Report ---
ED Headache - General Chief Complaint: Headache Stated Complaint: HEADACHE,NAUSEA Time Seen by Provider: 01/21/19 20:11 Mode of Arrival: Ambulatory Notes: Patient is a 33-year-old female G7, P5 at 25 weeks who presents with complaints of ongoing nausea, vomiting as well as several days of a headache. Patient states that her headache is a global, throbbing, mild to moderate headache. Nothing seems to improve or worsen this headache. States that she is had recurrent similar headaches during this and this is not new or different. Headache was not abrupt in onset and she does not regarded as being severe at any time. Patient's nausea and vomiting has been ongoing throughout the duration of this and again is not new or different today. She has had multiple visits to the emergency department regarding her concerns similar to today. Denies fever or constitutional symptoms. Denies focal weakness, numbness or confusion. Has not seen her OB regarding today's concerns. TRAVEL OUTSIDE OF THE [place] IN LAST 30 DAYS: No - Related Data Allergies/Adverse Reactions: ketorolac tromethamine [From Toradol] Allergy (Verified 01/19/19 23:27) meperidine HCl [From Demerol] Allergy (Verified 01/19/19 23:27) metoclopramide HCl [From Reglan] Allergy (Verified 01/19/19 23:27) morphine [Morphine] Allergy (Verified 01/19/19 23:27) nalbuphine [From Nubain] Allergy (Verified 01/19/19 23:27) Hives tramadol [Tramadol] Allergy (Verified 01/19/19 23:27) Hives ondansetron HCl [From Zofran] Adverse Reaction (Verified 01/19/19 23:27) VOMITING Past Medical History - General Information source: Patient - Social History Smoking Status: Never Smoker Chew tobacco use (# tins/day): No Frequency of alcohol use: None Drug Abuse: None Lives with: Spouse/Significant other Family History: Reviewed & Not Pertinent, Arthritis, DM, Hyperlipidemia, Hypertension Patient has suicidal ideation: No Patient has homicidal ideation: No - Past Medical History Cardiac Medical History: Reports: Hx Hypertension Neurological Medical History: Reports: Hx Migraine Renal/ Medical History: Denies: Hx Peritoneal Dialysis Musculoskeletal Medical History: Reports Hx Musculoskeletal Trauma Psychiatric Medical History: Reports: Hx Anxiety, Hx Attention Deficit Hyperactivity Disorder, Hx Bipolar Disorder, Hx Depression, Hx Post Traumatic Stress Disorder Traumatic Medical History: Reports: Hx Fractures - nose Past Surgical History: Reports: Hx Abdominal Surgery - LAPROSCOPY, Hx Gynecologic Surgery - d&c, lap for endometriosis, Hx Nose Surgery - Reconstruction for fracture, Other - facial reconstruction - Immunizations Immunizations up to date: Yes Hx Diphtheria, Pertussis, Tetanus Vaccination: Yes - 2010 Review of Systems - Review of Systems Notes: Constitutional: Negative for fever. HENT: Negative for sore throat. Eyes: Negative for visual changes. Cardiovascular: Negative for chest pain. Respiratory: Negative for shortness of breath. Gastrointestinal: Negative for abdominal pain, positive for vomiting Genitourinary: Negative for dysuria. Musculoskeletal: Negative for back pain. Skin: Negative for rash. Neurological: Positive headache 10 point ROS negative except as marked above and in HPI. Physical Exam - Vital signs Vitals: Temp Pulse Resp BP Pulse Ox 99.0 F 109 H 16 141/86 H 100 01/21/19 19:40 01/21/19 19:40 01/21/19 19:40 01/21/19 19:40 01/21/19 19:40 Interpretation: Tachycardic Notes: PHYSICAL EXAMINATION: GENERAL: Well-appearing, well-nourished and in no acute distress. HEAD: Atraumatic, normocephalic. EYES: Pupils equal round and reactive to light, extraocular movements intact, sclera anicteric, conjunctiva are normal. ENT: nares patent, oropharynx clear without exudates. Mildly dry mucous membranes. NECK: Normal range of motion, supple without lymphadenopathy LUNGS: Breath sounds clear to auscultation bilaterally and equal. No wheezes rales or rhonchi. HEART: Regular rate and rhythm without murmurs ABDOMEN: Soft, gravid uterus, nontender, normoactive bowel sounds. No guarding, no rebound. No masses appreciated. EXTREMITIES: Normal range of motion, no pitting or edema. No cyanosis. NEUROLOGICAL: Face symmetric. Tongue protrudes midline. Extraocular motions intact. Pupils are 2 mm and equally reactive. Normal speech, normal gait. 5 o ut of 5 strength in both the distal and proximal upper and lower extremities bilaterally. Sensation is grossly intact throughout. Finger to nose testing normal. Pronator drift normal. PSYCH: Normal mood, normal affect. SKIN: Warm, Dry, normal turgor, no rashes or lesions noted. Course - Re-evaluation Re-evalutation: 01/22/19 00:54 Is addition of a well-appearing 33-year-old female currently 25 weeks with complaints of a generalized headache for the past 2 to 3 days as well as ongoing nausea and vomiting which has been going on throughout the duration of her . Patient is very well in appearance, no focal neurologic deficits on exam. Appears mildly dehydrated. Has had multiple visits to the emergency department in OB for similar issues. She has no focal abdominal tenderness on exam, gravid uterus, heart tones within acceptable ranges. Labs broadly unremarkable. Patient has had resolution of her headache as well as vomiting after receiving IV promethazine and diphenhydramine. Has also received IV fluids. Clinical history and exam not consistent with dural venous sinus thrombosis, meningitis, encephalitis, alternative life threatening pathology. Patient's potassium is noted to be moderately low without any evidence of QT prolongation, widened QRS. Potassium repletion has been provided here in the emergency department and prescribed for discharge home. At this time will disc harge with return precautions and follow-up recommendations. Verbal discharge instructions given a the bedside and opportunity for questions given. Medication warnings reviewed. Patient is in agreement with this plan and has verbalized understanding of return precautions and the need for primary care follow-up in the next 24-72 hours. - Vital Signs Vital signs: Temp Pulse Resp BP Pulse Ox 99.0 F 109 H 16 141/86 H 100 01/21/19 19:40 01/21/19 19:40 01/21/19 19:40 01/21/19 19:40 01/21/19 19:40 - Laboratory Result Diagrams: 01/22/19 01:20 01/22/19 01:20 Laboratory results interpreted by me: 01/21/19 01/22/19 01/22/19 21:17 01:20 01:20 RBC 2.93 L Hgb 8.5 L Hct 25.3 L Potassium 2.9 L* BUN 6 L Creatinine 0.39 L Calcium 8.3 L Urine Urobilinogen 2.0 H - EKG Interpretation by Me Additional EKG results interpreted by me: 01/22/19 02:29 Sinus rhythm, rate 77, no ST elevations or depressions. QTC is 444. Unchanged from previous EKG Discharge - Discharge Clinical Impression: Nausea and vomiting during , Hypokalemia Headache Qualifiers: Headache type: unspecified Headache chronicity pattern: acute headache Intractability: not intractable Qualified Code(s): R51 - Headache Condition: Good Disposition: HOME, SELF-CARE Additional Instructions: You have been seen for vomiting during . You should continue to drink plenty of water and consider taking a solution such as Pedialyte if your having difficulty eating food. Please return if you become unable to drink any fluids for more than 12 hours, urinate less than twice a day, pass out, or have any other symptoms that are concerning to you. You have been seen in the Emergency Department (ED) for a headache. As we have discussed, please follow up with your primary care doctor as soon as possible regarding today's ED visit and your headache symptoms. Call your doctor or return to the ED if you have a worsening headache, sudden and severe headache, confusion, slurred speech, facial droop, weakness or numbness in any arm or leg, extreme fatigue, or other symptoms that concern you. Your potassium was also noted to be low today. You have been sent home with a prescription for potassium and have also been given potassium here in the emergency department. Please have a recheck of your potassium level within the next 1 week. Prescriptions: Potassium Chloride 20 meq PO DAILY #7 [email or web address]
[2019-01-22] MEDS: NORMAL SALINE 1000 ML 1,000 ML IV ONE (01:19)
[2019-01-22 01:33] LABS: ABSOLUTE BASOPHILS # (AUTO) 0.1 10^3/uL (0.0-0.2); ABSOLUTE EOSINOPHILS # (AUTO) 0.2 10^3/uL (0.0-0.6); ABSOLUTE LYMPHOCYTES (AUTO) 1.9 10^3/uL (0.5-4.7); ABSOLUTE MONOCYTES (AUTO) 0.9 10^3/uL (0.1-1.4); ABSOLUTE NEUT (AUTO) 5.9 10^3/uL (1.7-8.2); BASOPHILS % (AUTO) 0.7 % (0-2); EOSINOPHILS % (AUTO) 1.8 % (0-6); HEMATOCRIT 25.3 % (36.0-47.0); HEMOGLOBIN 8.5 g/dL (12.0-15.5); LYMPHOCYTES % (AUTO) 21.2 % (13-45); MEAN CORPUSCULAR HGB CONC 33.6 g/dL (32.0-36.0); MEAN CORPUSCULAR VOLUME 86 fl (80-97); MONOCYTES % (AUTO) 9.7 % (3-13); PLATELET COUNT 154 10^3/uL (150-450); RED BLOOD COUNT 2.93 10^6/uL (3.72-5.28); RED CELL DISTRIBUTION WIDTH 13.1 % (11.5-14.0); SEGMENTED NEUTROPHILS % (AUTO) 66.6 % (42-78); TOTAL CELLS COUNTED % (AUTO) 100 %; WHITE BLOOD COUNT 8.9 10^3/uL (4.0-10.5)
[2019-01-22 01:54] LABS: ALANINE AMINOTRANSFERASE 23 U/L (9-52); ALBUMIN 3.6 g/dL (3.5-5.0); ALKALINE PHOSPHATASE 77 U/L (38-126); ANION GAP 8 (5-19); ASPARTATE AMINO TRANSFERASE 22 U/L (14-36); BILIRUBIN,DIRECT 0.2 mg/dL (0.0-0.4); BILIRUBIN,TOTAL 0.4 mg/dL (0.2-1.3); BLOOD UREA NITROGEN 6 mg/dL (7-20); CALCIUM 8.3 mg/dL (8.4-10.2); CARBON DIOXIDE 26 mmol/L (22-30); CHLORIDE 106 mmol/L (98-107); GLUCOSE 80 mg/dL (75-110); LIPASE 63.9 U/L (23-300); SODIUM 140.4 mmol/L (137-145); TOTAL PROTEIN 6.9 g/dL (6.3-8.2)
[2019-01-22 01:58] LABS: POTASSIUM 2.9 mmol/L (3.6-5.0)
[2019-01-22] MEDS ORDERED: POTASSIUM CHLORIDE 10 MEQ CAPSULE.ER PO ONE (02:00)
[2019-01-22] MEDS ORDERED: MAGNESIUM OXIDE 400 MG TABLET PO ONE (02:01)
[2019-01-22] MEDS ORDERED: CLONAZEPAM 1 MG TABLET PO ONE (02:37)
[2019-01-22 02:59] VITALS: BP 155/88
--- NOTE | 2019-01-22 07:32 | EKG REPORT ---
SEVERITY:- ABNORMAL ECG - SINUS RHYTHM NONSPECIFIC ST-T CHANGES ANTERIOR LEADS : Confirmed by: Dustin Andres MD 22-Jan-2019 07:31:28
== END 2019-01-22 02:59 | disposition home or self-care (01) ==
LOC: ER 19:35
DX: O26.892 Other specified pregnancy related conditions, second trimester (principal); R51 Headache; O21.2 Late vomiting of pregnancy; O99.282 Endocrine, nutritional and metabolic diseases complicating pregnancy, second trimester; E87.6 Hypokalemia; O16.2 Unspecified maternal hypertension, second trimester; Z3A.25 25 weeks gestation of pregnancy; Z88.8 Allergy status to other drugs, medicaments and biological substances; Z88.5 Allergy status to narcotic agent
CPT/HCPCS: 93005; 99283; 96372; 96361; 96374; 36415; 83690; 85025; 80053; 81001; 93010; J3490 ×2; J1200 ×2; J2550 ×2; J7030

== ENCOUNTER → 2019-01-22 | Outpatient (CLI) | payer MEDICAID ==
--- NOTE | 2019-01-22 16:21 | RADIOLOGY REPORT (SQ) ---
EXAM DESCRIPTION: U/S OB 14+ TRNABD 1GES W/O DOP COMPLETED DATE/TIME: 01/22/2019 3:47 pm REASON FOR STUDY: Z34.92 ENCNTR FOR SUPRVSN OF NORMAL PREG, UNSP, SECOND TRIMESTER Z34.92 ENCNTR FO R SUPRVSN OF NORMAL PREG, UNSP, SECOND TRIME COMPARISON: None. TECHNIQUE: Static and Dynamic grayscale imaging performed of gravid uterus using transabdominal appr oach. Additional selected color Doppler and spectral images recorded. All stored on PACS. LIMITATIONS: None. FINDINGS: FETUSES SEEN:1 EGA: 25 weeks 6 days Calculated using BPD,FL,HC,AC documented on images. No discrepancy with clinica l dates. KRISTEN: 05/01/2019 EFW: 839 grams PERCENTILE: 35th TONYA: Adequate amount. PLACENTA: Anterior. GRADE: I PRESENTATION: Cephalic. ANATOMY: HEART RATE: 145 beats per minute. FOUR CHAMBER HEART: Visualized. THREE VESSEL CORD: Yes. CORD INSERTION: Visualized. KIDNEYS AND BLADDER: Visualized. Appear normal. STOMACH: Visualized. Appears normal. SPINE: Normal as visualized. BRAIN AND LATERAL VENTRICLES: Visualized. Appear normal. OTHER: No other significant finding. MATERNAL ADNEXA: Maternal ovaries not visualized. CERVICAL LENGTH: 3.3 cm. Closed. OTHER: No other significant finding. IMPRESSION: LIVING INTRAUTERINE . ESTIMATED GESTATIONAL AGE 25 weeks 6 days NO VISUALIZED ANOMALIES. Trimester of : Second trimester - 13 weeks 1 day to 27 weeks 6 days. TECHNICAL DOCUMENTATION: JOB ID: [id number] [employer]- All Rights Reserved Reading location - IP/workstation name: [email or web address]
== END ==
LOC: RAD 15:00
PROVIDERS: ATTEND Midwife
DX: Z34.92 Encounter for supervision of normal pregnancy, unspecified, second trimester (principal)
CPT/HCPCS: 76805

== ENCOUNTER 2019-01-26 11:29 | Outpatient (CLI) | payer MEDICAID ==
[2019-01-26 11:46] VITALS: BP 171/106
[2019-01-26 13:14] LABS: APPEARANCE,URINE CLEAR; BILIRUBIN,URINE NEGATIVE (NEGATIVE); COLOR,URINE STRAW; GLUCOSE, URINE NEGATIVE (NEGATIVE); KETONES,URINE NEGATIVE (NEGATIVE); LEUKOCYTE ESTERASE,URINE NEGATIVE (NEGATIVE); NITRITE,URINE NEGATIVE (NEGATIVE); PROTEIN,URINE NEGATIVE (NEGATIVE); URINE SPECIFIC GRAVITY 1.003; UROBILINOGEN,URINE NEGATIVE mg/dL (<2.0)
[2019-01-26 14:21] LABS: T.VAGINALIS (WET MOUNT) NO TRICHOMONAS SEEN; YEAST (WET MOUNT) NO YEAST SEEN
[2019-01-26 14:22] LABS: BACTERIA (WET MOUNT) 4+ BACTERIA SEEN; EPITHELIALS (WET MOUNT) 3+ EPITHELIALS SEEN; RBCS (WET MOUNT) FEW RBCS SEEN; WBCS (WET MOUNT) 4+ WBCS SEEN
[2019-01-26 14:23] LABS: URINE BARBITURATES SCREEN NEGATIVE; URINE BENZODIAZEPINES SCREEN NEGATIVE; URINE COCAINE SCREEN NEGATIVE; URINE MARIJUANA (THC) SCREEN NEGATIVE; URINE METHADONE SCREEN NEGATIVE; URINE PHENCYCLIDINE SCREEN NEGATIVE
[2019-01-26 14:30] LABS: URINE AMPHETAMINES SCREEN UNCONFIRMED POSITIVE
--- NOTE | 2019-01-26 14:34 | RADIOLOGY REPORT (SQ) ---
EXAM DESCRIPTION: U/S OB LIMITED COMPLETED DATE/TIME: 01/26/2019 2:25 pm REASON FOR STUDY: cervical length labor COMPARISON: 01/22/2019 TECHNIQUE: Limited transabdominal grayscale ultrasound for evaluation of specific requested obstetri carlo parameters. LIMITATIONS: None. FINDINGS: CERVICAL LENGTH: 3.3 cm. Closed. TONYA: 11.4 cm. FHR: 158 beats per minute. PRESENTATION: Breech PLACENTA: Anterior, grade 1. ANATOMY: Not assessed OTHER: Ultrasound gestational age 25 weeks 3 days. IMPRESSION: LIMITED OBSTETRICAL ULTRASOUND WITH MEASURED PARAMETERS DELINEATED ABOVE. Trimester of : Second trimester - 13 weeks 1 day to 27 weeks 6 days. TECHNICAL DOCUMENTATION: JOB ID: [id number]- All Rights Reserved Reading location - IP/workstation name: [email or web address]
[2019-01-26] MEDS ORDERED: ACETAMINOPHEN 325 MG TABLET ONE (15:03)
[2019-01-26] MEDS ORDERED: ACETAMINOPHEN 325 MG TABLET PO ONE (15:04)
[2019-01-26 15:49] LABS: CHLAM PCR NOT DETECTED (NOT DETECT); GON PCR NOT DETECTED (NOT DETECT)
[2019-01-29 08:18] LABS: 24 HOUR URINE PROTEIN RESULT 285 mg/day (42-225); 24 HR URINE CREAT RESULT 1.1 mg/day (0.8-2.0); URINE CREATININE 63.7 mg/dL (16-327); URINE PROTEIN 15.9 mg/dL (<12)
== END 2019-01-26 15:27 | disposition home or self-care (01) ==
LOC: EDSTATUS 12:16 → LC 12:19
PROVIDERS: ATTEND Obstetrics & Gynecology
PROC: 4A1HXCZ Monitoring of Products of Conception, Cardiac Rate, External Approach (ICD-10-PCS; principal; 2019-01-26)
DX: O47.02 False labor before 37 completed weeks of gestation, second trimester (principal); O10.912 Unspecified pre-existing hypertension complicating pregnancy, second trimester; Z3A.26 26 weeks gestation of pregnancy
CPT/HCPCS: 59899; 82570; 87210; 84156; 81001; 80307; 87491; 87591; 76815; J3490

== ENCOUNTER 2019-01-27 17:29 | Emergency (ER) | payer MEDICAID ==
[2019-01-27] MEDS ORDERED: LABETALOL HCL 200 MG TABLET PO ONE (17:57)
[2019-01-27] MEDS ORDERED: DIPHENHYDRAMINE HCL 50 MG/ML VIAL IM ONE (17:58)
--- NOTE | 2019-01-27 18:02 | ER Document Report ---
HPI - HPI Time Seen by Provider: 01/27/19 17:41 Pain Level: 3 Notes: Patient is a 33-year-old female who is approximately 26 weeks who presents complaining of a sore throat that began today. Patient states that it could be allergies as well and also wants an injection of Benadryl. Patient states that she has not been able to fill her labetalol and would like 1 dose today here in the emergency department. Patient states that she is otherwise eating and drinking without difficulty aside from discomfort with swallowing. She is urinating normally and having normal bowel movements. No other concerns or complaints. Denies any headache, fever, neck pain, URI, chest pain, palpitations, syncope, cough, shortness of breath, wheeze, dyspnea, abdominal pain, nausea/vomiting/diarrhea, urinary retention, dysuria, hematuria, vaginal discharge/odor/bleeding, or rash. - ROS Systems Reviewed and Negative: Yes All other systems reviewed and negative - REPRODUCTIVE Reproductive: REPORTS: : Past Medical History - Social History Smoking Status: Unknown if Ever Smoked Family History: Reviewed & Not Pertinent, Arthritis, DM, Hyperlipidemia, Hypertension - Past Medical History Cardiac Medical History: Reports: Hx Hypertension Neurological Medical History: Reports: Hx Migraine Renal/ Medical History: Denies: Hx Peritoneal Dialysis Musculoskeletal Medical History: Reports Hx Musculoskeletal Trauma Psychiatric Medical History: Reports: Hx Anxiety, Hx Attention Deficit Hyperactivity Disorder, Hx Bipolar Disorder, Hx Depression, Hx Post Traumatic Stress Disorder Traumatic Medical History: Reports: Hx Fractures - nose Past Surgical History: Reports: Hx Abdominal Surgery - LAPROSCOPY, Hx G ynecologic Surgery - d&c, lap for endometriosis, Hx Nose Surgery - Reconstruction for fracture, Other - facial reconstruction - Immunizations Immunizations up to date: Yes Hx Diphtheria, Pertussis, Tetanus Vaccination: Yes - 2010 Vertical Provider Document - CONSTITUTIONAL Agree With Documented VS: Yes Notes: PHYSICAL EXAMINATION: GENERAL: Well-appearing, well-nourished and in no acute distress. A&Ox4. Answers questions appropriately. Moves comfortably w/o notable distress HEAD: Atraumatic, normocephalic. EYES: Pupils equal round and reactive to light, extraocular movements intact, sclera anicteric, conjunctiva are normal. ENT: EAC clear b/l. TM's intact b/l without erythema, fluid, or perforation. Nares patent and without discharge. oropharynx mild erythema without exudates. 1+ tonsilar hypertrophy with mild erythema no exudate. No palatine shift. Uvula midline. No tongue protrusion. No drooling, hoarseness, or airway compromise. Moist mucous membranes. No sinus tenderness. NECK: Normal range of motion, supple without lymphadenopathy. No rigidity/meningismus. LUNGS: Breath sounds clear to auscultation bilaterally and equal. No wheezes rales or rhonchi. No retractions HEART: Regular rate and rhythm without murmurs, rubs, gallops. ABDOMEN: Soft, gravid, nontender, nondistended abdomen. No guarding, no rebound. Normal bowel sounds present. No CVA tenderness bilaterally. NEUROLOGICAL: Normal speech, normal gait. PSYCH: Normal mood, normal affect. SKIN: Warm, Dry, normal turgor, no rashes or lesions noted. - INFECTION CONTROL TRAVEL OUTSIDE OF THE [place] IN LAST 30 DAYS: No Course - Re-evaluation Re-evalutation: 01/27/19 Patient is an afebrile, well-hydrated, 33-year-old female who presents with acute pharyngitis, suspect viral versus allergies. Vitals are acceptable without significant tachycardia, tachypnea, or hypoxia. Patient is nontoxic- appearing and is tolerating p.o. without difficulty. Rapid strep negative with culture pending. Patient did receive her labetalol and Benadryl as she had requested. No further work-up warranted at this time. Low suspicion for any meningitis, sepsis, peritonsillar/pharyngeal abscess, respiratory compromise, Carlos's, or other emergent systemic condition at this time. Patient is aware this condition can change from initial presentation and she needs to monitor symptoms closely. Conservative measures otherwise for symptoms. Recheck with your PCM/OBGYN in 2-3 days. Return to the ED with any worsening/concerning symptoms otherwise as reviewed in discharge. Patient is in agreement. - Vital Signs Vital signs: Temp Pulse Resp BP Pulse Ox 98.4 F 105 H 18 156/95 H 100 01/27/19 17:33 01/27/19 17:33 01/27/19 17:33 01/27/19 17:33 01/27/19 17:33 Discharge - Discharge Clinical Impression: Acute pharyngitis Qualifiers: Pharyngitis/tonsillitis etiology: unspecified etiology Qualified Code(s): J02.9 - Acute pharyngitis, unspecified Condition: Stable Disposition: HOME, SELF-CARE Instructions: Sore Throat ([facility]) Additional Instructions: Maintain adequate fluid intake Take meds as directed Salt water gargles, mouthwash rinse, peroxide gargles tylenol as needed over the counter cold medication as needed for symptoms F/u: with your PCM/OBGYN in 2-3 days for a recheck Consider consult with ENT for ongoing/worsening symptoms Return to the ED with any fever, worsening pain, chest pain, neck pain/stiffness, shortness of breath, cough, drooling, trouble swallowing/breathing, abdominal pain, n/v/d, rash, or worsening/concerning symptoms otherwise. Forms: Elevated Blood Pressure Referrals: [facility] [Provider Group] - Follow up as needed
[2019-01-27 18:54] VITALS: BP 141/91
== END 2019-01-27 18:55 | disposition home or self-care (01) ==
LOC: ER 17:29
DX: O26.92 Pregnancy related conditions, unspecified, second trimester (principal); J02.9 Acute pharyngitis, unspecified; I10 Essential (primary) hypertension; Z3A.26 26 weeks gestation of pregnancy
CPT/HCPCS: 99283; 96372; 87070; 87880; J1200; J3490

== ENCOUNTER 2019-05-07 15:47 | Emergency (ER) | payer MEDICAID ==
[2019-05-07] MEDS ORDERED: DIPHENHYDRAMINE HCL 50 MG/ML VIAL IV ONE (16:28)
[2019-05-07] MEDS ORDERED: PROMETHAZINE HCL INJ 25 MG/1 ML VIAL IV ONE ×3 (16:28→19:45)
[2019-05-07] MEDS ORDERED: NORMAL SALINE 1000 ML 1,000 ML IV ONE (16:29)
--- NOTE | 2019-05-07 16:30 | ER Document Report ---
ED Medical Screen (RME) - General Chief Complaint: Nausea/Vomiting Stated Complaint: NAUSEA Time Seen by Provider: 05/07/19 16:19 Primary Care Provider: HORACIO RUSHING MD [Primary Care Provider] - Follow up as needed Mode of Arrival: Ambulatory Information source: Patient Notes: Patient is a 33-year-old female presenting to the emergency department with complaints of elevated blood pressure, nausea and vomiting. Patient began having nausea vomiting this morning. She states she went to the pharmacy to have a prescription for Phenergan filled when they told her the prescription and was was out of date so she decided to come here. When she got here she found out that her blood pressure was elevated. She had a recent vaginal delivery approximately 10 days ago. She states that she had preeclampsia at that time. She is very anxious and is also complaining of a headache. Exam: Abdomen soft, nontender without guarding or rebound. Patient alert, oriented, answering all questions appropriately. I have greeted and performed a rapid initial assessment of this patient. A comprehensive ED assessment and evaluation of the patient, analysis of test results and completion of the medical decision making process will be conducted by additional ED providers. I have specifically instructed the patient or family members with the patient to immediately return to any nursing staff should anything change in the patient's condition or with their chief complaint. This medical record was dictated with voice recognizing software. There may be grammatical, syntax errors that are unintended. TRAVEL OUTSIDE OF THE [place] IN LAST 30 DAYS: No - Related Data Allergies/Adverse Reactions: ketorolac tromethamine [From Toradol] Allergy (Verified 01/27/19 17:30) meperidine HCl [From Demerol] Allergy (Verified 01/27/19 17:30) metoclopramide HCl [From Reglan] Allergy (Verified 01/27/19 17:30) morphine [Morphine] Allergy (Verified 01/27/19 17:30) nalbuphine [From Nubain] Allergy (Verified 01/27/19 17:30) Hives tramadol [Tramadol] Allergy (Verified 01/27/19 17:30) Hives ondansetron HCl [From Zofran] Adverse Reaction (Verified 01/27/19 17:30) VOMITING Past Medical History - Social History Chew tobacco use (# tins/day): No Frequency of alcohol use: None Drug Abuse: None Family history: None - Past Medical History Cardiac Medical History: Reports: Hx Hypertension Neurological Medical History: Reports: Hx Migraine Renal/ Medical History: Denies: Hx Peritoneal Dialysis Musculoskeltal Medical History: Reports Hx Musculoskeletal Trauma Psychiatric Medical History: Reports: Hx Anxiety, Hx Attention Deficit Hyperactivity Disorder, Hx Bipolar Disorder, Hx Depression, Hx Post Traumatic Stress Disorder Traumatic Medical History: Reports: Hx Fractures - nose Past Surgical History: Reports: Hx Abdominal Surgery - LAPROSCOPY, Hx Gynecologic Surgery - d&c, lap for endometriosis, Hx Nose Surgery - Reconstruction for fracture, Other - facial reconstruction - Immunizations Immunizations up to date: Yes Hx Diphtheria, Pertussis, Tetanus Vaccination: Yes - 2010 Physical Exam - Vital signs Vitals: Temp Pulse Resp BP Pulse Ox 99.7 F 128 H 18 145/100 H 99 05/07/19 16:01 05/07/19 16:01 05/07/19 16:01 05/07/19 16:01 05/07/19 16:01 Course - Vital Signs Vital signs: Temp Pulse Resp BP Pulse Ox 99.7 F 128 H 18 145/100 H 99 05/07/19 16:01 05/07/19 16:01 05/07/19 16:01 05/07/19 16:01 05/07/19 16:01 Doctor's Discharge - Discharge Referrals: HORACIO RUSHING MD [Primary Care Provider] - Follow up as needed
[2019-05-07 16:46] LABS: APPEARANCE,URINE HAZY; BILIRUBIN,URINE NEGATIVE (NEGATIVE); COLOR,URINE COLORLESS; GLUCOSE, URINE NEGATIVE (NEGATIVE); KETONES,URINE NEGATIVE (NEGATIVE); LEUKOCYTE ESTERASE,URINE LARGE (NEGATIVE); NITRITE,URINE NEGATIVE (NEGATIVE); PROTEIN,URINE NEGATIVE (NEGATIVE); URINE SPECIFIC GRAVITY 1.014; UROBILINOGEN,URINE NEGATIVE mg/dL (<2.0)
[2019-05-07 17:09] LABS: ABSOLUTE BASOPHILS # (AUTO) 0.1 10^3/uL (0.0-0.2); ABSOLUTE EOSINOPHILS # (AUTO) 0.3 10^3/uL (0.0-0.6); ABSOLUTE LYMPHOCYTES (AUTO) 1.5 10^3/uL (0.5-4.7); ABSOLUTE MONOCYTES (AUTO) 0.6 10^3/uL (0.1-1.4); ABSOLUTE NEUT (AUTO) 3.5 10^3/uL (1.7-8.2); EOSINOPHILS % (AUTO) 5.6 % (0-6); HEMATOCRIT 36.6 % (36.0-47.0); HEMOGLOBIN 12.1 g/dL (12.0-15.5); LYMPHOCYTES % (AUTO) 24.7 % (13-45); MEAN CORPUSCULAR HEMOGLOBIN 28.3 pg (27.0-33.4); MEAN CORPUSCULAR VOLUME 86 fl (80-97); MONOCYTES % (AUTO) 10.8 % (3-13); PLATELET COUNT 196 10^3/uL (150-450); RED BLOOD COUNT 4.26 10^6/uL (3.72-5.28); RED CELL DISTRIBUTION WIDTH 14.3 % (11.5-14.0); SEGMENTED NEUTROPHILS % (AUTO) 57.9 % (42-78); TOTAL CELLS COUNTED % (AUTO) 100 %
[2019-05-07 17:25] LABS: ALBUMIN 4.8 g/dL (3.5-5.0); ALKALINE PHOSPHATASE 103 U/L (38-126); ANION GAP 11 (5-19); ASPARTATE AMINO TRANSFERASE 34 U/L (14-36); BILIRUBIN,DIRECT 0.1 mg/dL (0.0-0.4); BILIRUBIN,TOTAL 0.3 mg/dL (0.2-1.3); BLOOD UREA NITROGEN 13 mg/dL (7-20); CALCIUM 11.2 mg/dL (8.4-10.2); CARBON DIOXIDE 26 mmol/L (22-30); CHLORIDE 101 mmol/L (98-107); GLUCOSE 98 mg/dL (75-110); POTASSIUM 4.6 mmol/L (3.6-5.0)
[2019-05-07] MEDS ORDERED: LABETALOL HCL INJ 20 MG/4 ML DISP.SYRIN IV ONE (17:26)
[2019-05-07] MEDS ORDERED: HYDROMORPHONE HCL INJ/PF 2 MG/ML AMPULE IV ONE ×2 (17:26→19:30)
--- NOTE | 2019-05-07 17:55 | ER Document Report ---
ED General - General Chief Complaint: Nausea/Vomiting Stated Complaint: NAUSEA Time Seen by Provider: 05/07/19 16:19 Primary Care Provider: HORACIO RUSHING MD [ACTIVE STAFF] - Follow up as needed Mode of Arrival: Ambulatory Information source: Patient TRAVEL OUTSIDE OF THE [place] IN LAST 30 DAYS: No - HPI Notes: Patient complains of severe nausea. She also complains of a diffuse headache. Patient states that she delivered a child approximately 16 days ago. She did deliver early due to preeclampsia. She states that her blood pressures remained high since her delivery and she is on 4 different medications for blood press ure. She has been taking them regularly and has not missed any doses. She states today she had a severe bilateral frontal headache it is throbbing. She said this is the typical headache she gets when her blood pressure is high. It appears to be worse with high blood pressure and better with lower blood pressure. No known radiation of the symptoms other than she says the pain radiates throughout her head. It is a throbbing sensation. It is moderate in intensity. No vomiting. She has had 2 days of diarrhea. No abdominal pain or cramping. No abnormal vaginal discharge. - Related Data Allergies/Adverse Reactions: ketorolac tromethamine [From Toradol] Allergy (Verified 01/27/19 17:30) meperidine HCl [From Demerol] Allergy (Verified 01/27/19 17:30) metoclopramide HCl [From Reglan] Allergy (Verified 01/27/19 17:30) morphine [Morphine] Allergy (Verified 01/27/19 17:30) nalbuphine [From Nubain] Allergy (Verified 01/27/19 17:30) Hives tramadol [Tramadol] Allergy (Verified 01/27/19 17:30) Hives ondansetron HCl [From Zofran] Adverse Reaction (Verified 01/27/19 17:30) VOMITING Past Medical History - General Information source: Patient - Social History Smoking Status: Current Every Day Smoker Chew tobacco use (# tins/day): No Frequency of alcohol use: None Drug Abuse: None Family History: Reviewed & Not Pertinent, Arthritis, DM, Hyperlipidemia, Hypertension Patient has suicidal ideation: No Patient has homicidal ideation: No - Past Medical History Cardiac Medical History: Reports: Hx Hypertension Neurological Medical History: Reports: Hx Migraine Renal/ Medical History: Denies: Hx Peritoneal Dialysis Musculoskeletal Medical History: Reports Hx Musculoskeletal Trauma Psychiatric Medical History: Reports: Hx Anxiety, Hx Attention Deficit Hyperactivity Disorder, Hx Bipolar Disorder, Hx Depression, Hx Post Traumatic Stress Disorder Traumatic Medical History: Reports: Hx Fractures - nose Past Surgical History: Reports: Hx Abdominal Surgery - LAPROSCOPY, Hx Gynecologic Surgery - d&c, lap for endometriosis, Hx Nose Surgery - Reconstruction for fracture, Other - facial reconstruction - Immunizations Immunizations up to date: Yes Hx Diphtheria, Pertussis, Tetanus Vaccination: Yes - 2010 Review of Systems - Review of Systems Constitutional: Malaise, Weakness. denies: Chills, Fever Cardiovascular: denies: Chest pain, Dyspnea Respiratory: denies: Cough, Short of breath Gastrointestinal: Diarrhea, Nausea. denies: Abdominal pain, Vomiting -: Yes All other systems reviewed and negative Physical Exam - Vital signs Vitals: Temp Pulse Resp BP Pulse Ox 99.7 F 128 H 18 145/100 H 99 05/07/19 16:01 05/07/19 16:01 05/07/19 16:01 05/07/19 16:01 05/07/19 16:01 Interpretation: Hypertensive - General General appearance: Appears well, Alert - HEENT Head: Normocephalic, Atraumatic Eyes: Normal Pupils: PERRL - Respiratory Respiratory status: No respiratory distress Chest status: Nontender Breath sounds: Normal Chest palpation: Normal - Cardiovascular Rhythm: Tachycardia Heart sounds: Normal auscultation Murmur: No - Abdominal Inspection: Normal Distension: No distension Bowel sounds: Normal Tenderness: Nontender Organomegaly: No organomegaly - Back Back: Normal, Nontender - Extremities General upper extremity: Normal inspection, Nontender, Normal color, Normal ROM, Normal temperature General lower extremity: Normal inspection, Nontender, Normal color, Normal ROM, Normal temperature, Normal weight bearing. No: Yovani's sign - Neurological Neuro grossly intact: Yes Cognition: Normal Orientation: AAOx4 Ron Coma Scale Eye Opening: Spontaneous [place] Coma Scale Verbal: Oriented [place] Coma Scale Motor: Obeys Commands [place] Coma Scale Total: 15 Speech: Normal Motor strength normal: LUE, RUE, LLE, RLE Sensory: Normal - Psychological Associated symptoms: Normal affect, Normal mood - Skin Skin Temperature: Warm Skin Moisture: Dry Skin Color: Normal Course - Re-evaluation Re-evalutation: 05/07/19 19:20 all patient's laboratories are unremarkable. I did call [facility] and speak to the corrections unit supervisor. They stated that they did not feel the patient required any further hospital evaluation if all tests were unremarkable which they are. Patient still complains of nausea so I will discharge with Phenergan. Heart rate now is down into the low 90s. Blood pressure was 140/90. I feel this is probably a reasonable blood pressure for patient on 3 blood pressure medications. I do not see any signs that she is in danger of being eclamptic. There is no new proteinuria. No significant leg swelling. She has no liver function test elevations. Blood pressure seems to be in the standard range for the patient. I feel the patient is safe for discharge and follow-up as an outpatient. Patient does have positive leukocyte esterase on urine however she has only 4 white blood cells in her urine. She does not have any dysuria. She is 16 days and still having lochia which most likely explains the leukocyte esterase in the urine. 05/07/19 19:22 - Vital Signs Vital signs: Temp Pulse Resp BP Pulse Ox 99.7 F 128 H 18 145/100 H 99 05/07/19 16:01 05/07/19 16:01 05/07/19 16:01 05/07/19 16:01 05/07/19 16:01 - Laboratory Result Diagrams: 05/07/19 16:41 05/07/19 16:41 Laboratory results interpreted by me: 05/07/19 05/07/19 05/07/19 16:28 16:41 16:41 RDW 14.3 H Calcium 11.2 H Urine Blood SMALL H Ur Leukocyte Esterase LARGE H Discharge - Discharge Clinical Impression: Hypertension, uncontrolled, Nausea Condition: Stable Disposition: HOME, SELF-CARE Instructions: High Blood Pressure, Requiring Treatment ([facility]), Nausea or Vomiting, Nonspecific ([facility]) Additional Instructions: Please follow-up with your corrections unit supervisor at [facility] as scheduled. Please take all of your medications as instructed. Prescriptions: Sucralfate [Carafate] 1 gm PO QID 14 Days #200 oral.susp Promethazine HCl [Phenergan 25 mg Tablet] 1 tab PO Q6H PRN #15 tablet PRN Reason: Forms: Elevated Blood Pressure Referrals: HORACIO RUSHING MD [ACTIVE STAFF] - Follow up in 3-5 days
[2019-05-07 20:23] VITALS: BP 151/95
== END 2019-05-07 20:22 | disposition home or self-care (01) ==
LOC: ER 15:47
DX: I10 Essential (primary) hypertension (principal); R11.2 Nausea with vomiting, unspecified; R51 Headache; R53.81 Other malaise; F17.200 Nicotine dependence, unspecified, uncomplicated; Z88.6 Allergy status to analgesic agent
CPT/HCPCS: 36415; 87086; 83735; 85025; 80053; 81001; J1200; J3490; J1170; J2550; J7030; 96361; 96374; 96375; 96376; 99284

== ENCOUNTER 2019-05-09 04:44 | Emergency (ER) | payer MEDICAID ==
--- NOTE | 2019-05-09 05:13 | ER Document Report ---
HPI - HPI Patient complains to provider of: headache Onset/Duration: Gradual, Waxing and waning Quality of pain: Achy Severity: Mild Pain Level: 2 Context: 33 yr old female pt, with the listed pmh, here for mcnair x 3+ days. not worst mcnair of life. denies sudden onset. has had similar mcnair's before in the past. pos photophobia. pos phonophobia, intermittent dizziness and blurry vision-none currently, and a few episodes of nonbloody nonbilious vomiting-all typical of pts usual mcnair, nothing different. seen here recently for this and required dilaudid and iv phenergan for mcnair resolution. she is 18 days and has a hx of htn and anxiety with medication noncompliance. she isn't breast feeding. pre-eclampsia was ruled out at last visit per report. no hx of ecclampsia. she hasn't taken her morning htn meds or anxiety meds. no recent tylenol. she was brought in via ems and given 100mcg of fentanyl IV, phenergan 12.5mg IV and 10mg IV labetolol with some improvement of her sx. she is requesting more pain and nausea meds. no blood thinners. has f/u with obgyn may 16. no fevers, rash, uri sx, other vision changes, tinnitus, cp, sob, numbness, tingling, weakness, saddle anesthesia, incontinence, uti sx, neck pain/stiffness, or any other sx. no recent abx or steroids. no hx of diabetes or asthma. no change in caffeine intake. hasn't f/u with neurology/pcp/obgyn. has had a neg head ct before in the past. no fall or trauma. no other chronic narcotic pain meds. no tick bites. no personal or family hx of rare brain conditions or sudden at a young age. no hx of mi or cva or tia. no syncope. no ams, one sided weakness, facial droop, or slurred speech, no other complaints at this time. denies intoxication. denies . she is on labetolol, hctz, amlodipine, lamictal, klonopin, seroquel, carafate, and adderall. no recent changes in doses or meds. endorses compliance this time. she was dc'd on phenergan here a few days ago and states she has now finally filled the script for the po phenergan but hasn't been able to keep it down today. she has a script for phenergan suppositories but hasn't filled it yet. Associated Symptoms: Headache, Vomiting. denies: Chest pain, Fever, Hurts to breath, Leg swelling, Shortness of breath Similar symptoms previously: Yes Recently seen / treated by doctor: Yes - ROS Systems Reviewed and Negative: Yes All other systems reviewed and negative - to include 10 systems, unless mentioned in the hpi - REPRODUCTIVE Reproductive: DENIES: : Past Medical History - General Information source: Patient, H Records - Social History Smoking Status: Unknown if Ever Smoked Frequency of alcohol use: None Drug Abuse: None Lives with: Family Family History: Arthritis, DM, Hyperlipidemia, Hypertension Patient has suicidal ideation: No Patient has homicidal ideation: No - Past Medical History Cardiac Medical History: Reports: Hx Hypertension Neurological Medical History: Reports: Hx Migraine. Denies: Hx Seizures Endocrine Medical History: Denies: Hx Diabetes Mellitus Type 1, Hx Diabetes Mellitus Type 2 Renal/ Medical History: Denies: Hx End Stage Renal Disease, Hx Hemodialysis, Hx Peritoneal Dialysis GI Medical History: Reports: Hx Gastroesophageal Reflux Disease Psychiatric Medical History: Reports: Hx Anxiety, Hx Attention Deficit Hyperactivity Disorder, Hx Bipolar Disorder, Hx Depression, Hx Post Traumatic Stress Disorder Traumatic Medical History: Reports: Hx Fractures - nose Past Surgical History: Reports: Hx Abdominal Surgery - LAPAROSCOPY, Hx Gynecologic Surgery - d&c, lap for endometriosis, Hx Nose Surgery - Reconstruction for fracture, Other - facial reconstruction - Immunizations Immunizations up to date: Yes Hx Diphtheria, Pertussis, Tetanus Vaccination: Yes - 2010 Vertical Provider Document - CONSTITUTIONAL Agree With Documented VS: Yes Exam Limitations: No Limitations General Appearance: No Apparent Distress Notes: GENERAL_APPEARANCE: well_nourished, alert, cooperative, no obvious discomfort. Pleasant, young black female, resting quietly with the covers over her head when i enter the room, easily sitting up, then almost immediately inquiring for pain meds, smiling, speaking in full sentences, in no sign of pain or resp distress, no one is with her VITALS: reviewed, see vital signs table. HEAD: normocephalic and atraumatic, no raccoon eyes, no dee signs. no swelling or ttp. EARS: canals_clear_bilat, TMs_clear, no_discharge_from_ears. no hemotympanum EYES: EOMI without pain, conjunctiva_clear. PERRL, eyelids wnl. no drainage. no ttp or crepitation of the orbits. no sign of orbital/periorbital cellulitis. no hyphema. no subconjunctival hemorrhage. no photophobia. no nystagmus. MOUTH: no_lacerations inside_mouth. no broken teeth. no tmj clicking or ttp. pharynx wnl. tongue protrudes midline. no drooling, tripoding, voice change, or stridor, no thrush or oral lesions. no tongue or lip swelling. NOSE: no drainage or epistaxis NECK: no_swelling\tenderness on the neck. no midline bony tenderness. no step offs or deformities. full rom. full strength. no meningeal signs. no sign of central cord syndrome. neg kernig. neg brudinski. no nuchal rigidity. HEART: normal_rate, normal_rhythm, LUNGS: ctab. no chest wall ttp. no overlying skin changes. no flail chest or crepitation. ABDOMEN: normal_BS, soft, no_abd_tenderness, no rebound, guarding, distension, or peritoneal signs. no cva ttp. no overlying skin changes. BACK: no midline bony tenderness. no step offs or deformities RECTAL: deferred; however, no sign of loss of bowel or bladder or soiling of clothing. EXTREMITIES: strength 5/5 in all_extremities, good pulses all_extremities, no_abrasions\lacerations in the extremities, no_swelling\tenderness in the extremities. full rom. normal gait. 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 brisk cap refill. no shortening or rotation of the limbs or other signs of deformities unless otherwise noted. SKIN: warm, dry, good_color. no other grossly visible overlying skin changes or signs of trauma unless otherwise noted. NEURO: reflexes symmetric throughout, cranial nerves 2 - 12 intact, motor_intact, sensory_intact. cerebellar function intact GLASCOW_COMA_SCORE: (adult) - eyes_open_spontaneously_4, verbal_converses_and_oriented_5, motor_obeys_commands_6, glasgow_coma_total_15, MENTAL_STATUS: speech_clear, oriented_X_3, responds_appropriately to questions. - INFECTION CONTROL TRAVEL OUTSIDE OF THE [place] IN LAST 30 DAYS: No Course - Re-evaluation Re-evalutation: pt here for mcnair x a few days. approx 18 days , already ruled out for pre-eclampsia a few days ago and required dilaudid for mcnair resolution when seen t samuel. she has no signs of pre-eclampsia or eclampsia here today. bp improved. she is already on several psych and bp meds. she hasn't taken them this morning. she had near resolution of her sx with meds listed. will avoid further narcotics at this time. labs unremarkable other than a slightly elevated ck-pt has no cp or sob. no other signs of rhambo-she is tolerating po. ekg unremarkable per ed att ending. pt informed of her findings and the needs to take her meds as prescribed and f/u closely with her pcp for possible adjustment of her meds. tylenol prn any pain. she has phenergan po and suppositories at home she can take and fill scripts of already. advised sx care. drink plenty of fluids. strict return precautions given. she remained neurononfocal on multiple reexams. she is tolerating po and well appearing. no sign of meningitis, spinal cord involvement, pre-eclampsia, or central cord syndrome. she is low risk for sah. advised to f/u with pcp/obgyn/neuro in 1-2 days. return for any worsening symptoms. vss. well appearing. satting well on ra. neurononfocal. pt understands and agrees to plan. On reexam, pt improved with tx listed. remained stable. nontoxic. well appearing. pain controlled. tolerating po. requesting to go home. neurononfocal. case discussed with ER Attending, Dr. mix/cely, who directed and agrees with plan of care and advised no further workup indicated at this time and pt is stable for dc home with close f/u with pcp/specialist. Documentation achieved through voice recording which may lead to some occasional accidental typographical errors. Extensive efforts have been made to proof read documentation to make sure these are the least as possible. Category Date Time Status EKG Documentation STAT Care 05/09/19 04:58 Completed Orthostatic Vital Sign (ED) NOW Care 05/09/19 05:20 Active Visual Acuity (ED) NOW Care 05/09/19 05:20 Active CBC WITH DIFF [HEME] Stat Lab 05/09/19 05:55 Completed COMPREHENSIVE METABOLIC PANEL [CHEM] Stat Lab 05/09/19 05:55 Completed CREATINE KINASE MB [CHEM] Stat Lab 05/09/19 05:55 Completed CREATINE KINASE [CHEM] Stat Lab 05/09/19 05:55 Completed FREE T3 [CHEM] Stat Lab 05/09/19 05:55 Completed MAGNESIUM [CHEM] Stat Lab 05/09/19 05:55 Completed T4 [FREE T4 (FREE THYROXINE)] [CHEM] Stat Lab 05/09/19 05:55 Completed THYROID STIMULATING HORMONE [CHEM] Stat Lab 05/09/19 05:55 Completed URINALYSIS [URIN] Stat Lab 05/09/19 05:05 Completed URINE DRUG SCREEN [CHEM] Stat Lab 05/09/19 05:05 Completed Acetaminophen [Tylenol 325 mg Tablet] Med 05/09/19 07:31 Discontinued 650 mg PO NOW ONE Diphenhydramine HCl [Benadryl Inj 50 mg/1 ml Vial] Med 05/09/19 05:45 Discontinued 50 mg IM NOW ONE Promethazine HCl [Phenergan Inj 25 mg/1 ml Vial] Med 05/09/19 07:31 Discontinued 25 mg IM NOW ONE EKG ER ONLY [ER] Stat Oth 05/09/19 Completed - Vital Signs Vital signs: 05/09/19 07:23 Temp Resp BP Pulse Ox 05/09/19 06:01 17 99 05/09/19 06:00 14 140/104 H 98 05/09/19 05:59 21 H 98 05/09/19 05:05 16 97 05/09/19 04:57 99.0 F 05/09/19 04:48 146/111 H Temp Pulse Resp BP Pulse Ox 05/09/19 07:32 98.5 F 106 H 18 120/69 98 05/09/19 06:01 17 99 05/09/19 06:00 14 140/104 H 98 05/09/19 05:59 21 H 98 05/09/19 05:05 16 97 05/09/19 04:57 99.0 F 05/09/19 04:48 146/111 H - Laboratory Result Diagrams: 05/09/19 05:55 05/09/19 05:55 Laboratory results interpreted by me: 05/09/19 07:23 Labs- Entire Visit 05/09/19 05/09/19 05/09/19 05:05 05:05 05:55 WBC RBC Hgb Hct MCV MCH MCHC RDW Plt Count Lymph % (Auto) Mcdowell % (Auto) Eos % (Auto) Baso % (Auto) Absolute Neuts (auto) Absolute Lymphs (auto) Absolute Monos (auto) Absolute Eos (auto) Absolute Basos (auto) Seg Neutrophils % Sodium 138.7 Potassium 3.8 Chloride 104 Carbon Dioxide 24 Anion Gap 11 BUN 13 Creatinine 0.83 Est GFR ( Amer) > 60 Est GFR (MDRD) Non-Af > 60 Glucose 108 Calcium 10.2 Magnesium Total Bilirubin 0.7 Direct Bilirubin 0.2 Neonat Total Bilirubin Not Reportable Neonat Direct Bilirubin Not Reportable Neonat Indirect Bili Not Reportable AST 47 H ALT 38 Alkaline Phosphatase 97 Creatine Kinase CK-MB (CK-2) Total Protein 8.3 H Albumin 4.8 TSH Free T4 Free T3 pg/mL Urine Color YELLOW Urine Appearance SLIGHTLY-CLOUDY Urine pH 9.0 Ur Specific Webster 1.009 Urine Protein NEGATIVE Urine Glucose (UA) NEGATIVE Urine Ketones NEGATIVE Urine Blood MODERATE H Urine Nitrite NEGATIVE Urine Bilirubin NEGATIVE Urine Urobilinogen NEGATIVE Ur Leukocyte Esterase LARGE H Urine WBC (Auto) 6 Urine RBC (Auto) 3 Squamous Epi Cells Auto 7 Urine Mucus (Auto) RARE Urine Ascorbic Acid NEGATIVE Urine Opiates Screen NEGATIVE Urine Methadone Screen NEGATIVE Ur Barbiturates Screen NEGATIVE Ur Phencyclidine Scrn NEGATIVE Ur Amphetamines Screen NEGATIVE U Benzodiazepines Scrn NEGATIVE Urine Cocaine Screen NEGATIVE U Marijuana (THC) Screen NEGATIVE 05/09/19 05/09/19 05/09/19 05:55 05:55 05:55 WBC 5.6 RBC 4.29 Hgb 12.2 Hct 37.0 MCV 86 MCH 28.5 MCHC 33.1 RDW 14.0 Plt Count 197 Lymph % (Auto) 31.8 Mcdowell % (Auto) 14.9 H Eos % (Auto) 6.1 H Baso % (Auto) 0.7 Absolute Neuts (auto) 2.6 Absolute Lymphs (auto) 1.8 Absolute Monos (auto) 0.8 Absolute Eos (auto) 0.3 Absolute Basos (auto) 0.0 Seg Neutrophils % 46.5 Sodium Potassium Chloride Carbon Dioxide Anion Gap BUN Creatinine Est GFR ( Amer) Est GFR (MDRD) Non-Af Glucose Calcium Magnesium 1.9 Total Bilirubin Direct Bilirubin Neonat Total Bilirubin Neonat Direct Bilirubin Neonat Indirect Bili AST ALT Alkaline Phosphatase Creatine Kinase 697 H CK-MB (CK-2) 3.40 Total Protein Albumin TSH Free T4 Free T3 pg/mL Urine Color Urine Appearance Urine pH Ur Specific Webster Urine Protein Urine Glucose (UA) Urine Ketones Urine Blood Urine Nitrite Urine Bilirubin Urine Urobilinogen Ur Leukocyte Esterase Urine WBC (Auto) Urine RBC (Auto) Squamous Epi Cells Auto Urine Mucus (Auto) Urine Ascorbic Acid Urine Opiates Screen Urine Methadone Screen Ur Barbiturates Screen Ur Phencyclidine Scrn Ur Amphetamines Screen U Benzodiazepines Scrn Urine Cocaine Screen U Marijuana (THC) Screen 05/09/19 05:55 WBC RBC Hgb Hct MCV MCH MCHC RDW Plt Count Lymph % (Auto) Mcdowell % (Auto) Eos % (Auto) Baso % (Auto) Absolute Neuts (auto) Absolute Lymphs (auto) Absolute Monos (auto) Absolute Eos (auto) Absolute Basos (auto) Seg Neutrophils % Sodium Potassium Chloride Carbon Dioxide Anion Gap BUN Creatinine Est GFR ( Amer) Est GFR (MDRD) Non-Af Glucose Calcium Magnesium Total Bilirubin Direct Bilirubin Neonat Total Bilirubin Neonat Direct Bilirubin Neonat Indirect Bili AST ALT Alkaline Phosphatase Creatine Kinase CK-MB (CK-2) Total Protein Albumin TSH 2.90 Free T4 0.82 Free T3 pg/mL 6.00 H Urine Color Urine Appearance Urine pH Ur Specific Webster Urine Protein Urine Glucose (UA) Urine Ketones Urine Blood Urine Nitrite Urine Bilirubin Urine Urobilinogen Ur Leukocyte Esterase Urine WBC (Auto) Urine RBC (Auto) Squamous Epi Cells Auto Urine Mucus (Auto) Urine Ascorbic Acid Urine Opiates Screen Urine Methadone Screen Ur Barbiturates Screen Ur Phencyclidine Scrn Ur Amphetamines Screen U Benzodiazepines Scrn Urine Cocaine Screen U Marijuana (THC) Screen - EKG Interpretation by In EKG shows normal: Sinus rhythm Rate: Tachycardia - 104 bpm, no stemi, reviewed by dr ta When compared to previous EKG there are: No significant change Discharge - Discharge Clinical Impression: Elevated blood pressure reading, Nausea Headache Qualifiers: Headache type: unspecified Headache chronicity pattern: unspecified pattern Intractability: not intractable Qualified Code(s): R51 - Headache Condition: Good Disposition: HOME, SELF-CARE Additional Instructions: Follow-up with PCP/obgyn in 1 to 2 days. take your meds as prescribed and keep a close check on your blood pressure. continue to take the phenergan you have at home as prescribed. call your obgyn and pcp for a sooner apt for recheck. Return for any worsening symptoms. tylenol as needed for any pain.
[2019-05-09 05:25] LABS: APPEARANCE,URINE SLIGHTLY-CLOUDY; BILIRUBIN,URINE NEGATIVE (NEGATIVE); COLOR,URINE YELLOW; GLUCOSE, URINE NEGATIVE (NEGATIVE); KETONES,URINE NEGATIVE (NEGATIVE); LEUKOCYTE ESTERASE,URINE LARGE (NEGATIVE); NITRITE,URINE NEGATIVE (NEGATIVE); PROTEIN,URINE NEGATIVE (NEGATIVE); URINE SPECIFIC GRAVITY 1.009; UROBILINOGEN,URINE NEGATIVE mg/dL (<2.0)
[2019-05-09] MEDS ORDERED: DIPHENHYDRAMINE HCL 50 MG/ML VIAL IM ONE (05:45)
[2019-05-09 05:51] LABS: URINE AMPHETAMINES SCREEN NEGATIVE; URINE BARBITURATES SCREEN NEGATIVE; URINE BENZODIAZEPINES SCREEN NEGATIVE; URINE COCAINE SCREEN NEGATIVE; URINE MARIJUANA (THC) SCREEN NEGATIVE; URINE METHADONE SCREEN NEGATIVE; URINE PHENCYCLIDINE SCREEN NEGATIVE
[2019-05-09 06:09] LABS: ABSOLUTE EOSINOPHILS # (AUTO) 0.3 10^3/uL (0.0-0.6); ABSOLUTE LYMPHOCYTES (AUTO) 1.8 10^3/uL (0.5-4.7); ABSOLUTE MONOCYTES (AUTO) 0.8 10^3/uL (0.1-1.4); ABSOLUTE NEUT (AUTO) 2.6 10^3/uL (1.7-8.2); BASOPHILS % (AUTO) 0.7 % (0-2); EOSINOPHILS % (AUTO) 6.1 % (0-6); HEMOGLOBIN 12.2 g/dL (12.0-15.5); LYMPHOCYTES % (AUTO) 31.8 % (13-45); MEAN CORPUSCULAR HEMOGLOBIN 28.5 pg (27.0-33.4); MEAN CORPUSCULAR HGB CONC 33.1 g/dL (32.0-36.0); MEAN CORPUSCULAR VOLUME 86 fl (80-97); MONOCYTES % (AUTO) 14.9 % (3-13); PLATELET COUNT 197 10^3/uL (150-450); RED BLOOD COUNT 4.29 10^6/uL (3.72-5.28); SEGMENTED NEUTROPHILS % (AUTO) 46.5 % (42-78); TOTAL CELLS COUNTED % (AUTO) 100 %; WHITE BLOOD COUNT 5.6 10^3/uL (4.0-10.5)
[2019-05-09 06:36] LABS: ALBUMIN 4.8 g/dL (3.5-5.0); ALKALINE PHOSPHATASE 97 U/L (38-126); ANION GAP 11 (5-19); ASPARTATE AMINO TRANSFERASE 47 U/L (14-36); BILIRUBIN,DIRECT 0.2 mg/dL (0.0-0.4); BILIRUBIN,TOTAL 0.7 mg/dL (0.2-1.3); BLOOD UREA NITROGEN 13 mg/dL (7-20); CALCIUM 10.2 mg/dL (8.4-10.2); CARBON DIOXIDE 24 mmol/L (22-30); CHLORIDE 104 mmol/L (98-107); GLUCOSE 108 mg/dL (75-110); POTASSIUM 3.8 mmol/L (3.6-5.0); TOTAL PROTEIN 8.3 g/dL (6.3-8.2)
[2019-05-09 06:53] LABS: FREE T4 (FREE THYROXINE) 0.82 ng/dL (0.78-2.19)
[2019-05-09 07:07] LABS: THYROID STIMULATING HORMONE 2.9 uIU/mL (0.47-4.68)
--- NOTE | 2019-05-09 07:22 | EKG REPORT ---
SEVERITY:- ABNORMAL ECG - SINUS TACHYCARDIA DIFFUSE NONSPECIFIC ST-T CHANGES, INCREASED FROM 01/22/19 EKG : Confirmed by: Dustin Andrse MD 09-May-2019 07:21:28
[2019-05-09] MEDS ORDERED: PROMETHAZINE HCL INJ 25 MG/1 ML VIAL IM ONE (07:31)
[2019-05-09] MEDS ORDERED: ACETAMINOPHEN 325 MG TABLET PO ONE (07:31)
[2019-05-09 07:34] VITALS: BP 120/69
== END 2019-05-09 08:07 | disposition home or self-care (01) ==
LOC: ER 04:44
DX: R51 Headache (principal); R11.2 Nausea with vomiting, unspecified; I10 Essential (primary) hypertension; R42 Dizziness and giddiness; H53.8 Other visual disturbances; Z79.899 Other long term (current) drug therapy
CPT/HCPCS: 93005; 99284; 96374; 96375; 36415; 84439; 82553; 82550; 83735; 84443; 85025; 80053; 81001; 80307; 84481; 93010; J3490; J1200; J2550

== ENCOUNTER 2019-05-10 04:23 | Emergency (ER) | payer MEDICAID ==
--- NOTE | 2019-05-10 05:38 | ER Document Report ---
HPI - HPI Patient complains to provider of: dental pain, rash Time Seen by Provider: 05/10/19 05:25 Onset: This afternoon Onset/Duration: Gradual, Constant Quality of pain: Achy Severity: Mild Pain Level: 2 Context: This is a 33 yr old female pt with the listed pmh, here presenting with two complaints: the first being a 1 a toothache. Patient states this has been ongoing for about 1 day. endorses hx of breaking this tooth accidentally a while back. Patient describes the pain in the mouth as a 6 out of 10, sharp, aching, is located in the right lower posterior part of the mouth. Patient denies any difficulty swallowing. Patient denies any difficulty handling secretions. Patient states normal appetite and fluid intake. Patient denies any fever or chills. Patient denies any radiation of pain into the neck. Patient states that chewing, and hot and cold make the pain worse. Palpation makes pain worse and rest makes it better. Patient denies any difficulty breathing. no recent abx or steroids. no hx of diabetes or asthma. hasn't sought care until now. no recent illness. 2nd complaint being- a rash x 1 day. 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 she took tylenol a few mins before the rash started and she wasn't sure if it was from the tylenol. she has had tylenol before in the past however with no reaction. denies rash currently and is pain controlled with tylenol. no other known new exposures/meds/foods/sick contacts/hx of this before/recent travel/pets. no one around them has it. no hx of drug use. no other known source or cause. no recent abx or steroids. no hx of diabetes or asthma. rash was itchy, nonpainful, and without drainage. no tick bites. rash started on arms, trunk, and neck. utd on shots. hasn't put anything on it. no trouble breathing/swallowing/handling secretions. no hx of familial urticaria or stress induced urticaria. no other complaints at this time. Exacerbated by: Movement, Food Relieved by: Remaining still Similar symptoms previously: Yes Recently seen / treated by doctor: No - ROS Systems Reviewed and Negative: Yes All other systems reviewed and negative - to include 10 systems, unless mentioned in the hpi - REPRODUCTIVE Reproductive: DENIES: : Past Medical History - General Information source: Patient - Social History Smoking Status: Never Smoker Frequency of alcohol use: None Drug Abuse: None Lives with: Family Family History: Arthritis, DM, Hyperlipidemia, Hypertension Patient has suicidal ideation: No Patient has homicidal ideation: No - Past Medical History Cardiac Medical History: Reports: Hx Hypertension Neurological Medical History: Reports: Hx Migraine. Denies: Hx Seizures Endocrine Medical History: Denies: Hx Diabetes Mellitus Type 1, Hx Diabetes Mellitus Type 2 Renal/ Medical History: Denies: Hx End Stage Renal Disease, Hx Hemodialysis, Hx Peritoneal Dialysis Malignancy Medical History: Reports: None GI Medical History: Reports: Hx Gastroesophageal Reflux Disease Psychiatric Medical History: Reports: Hx Anxiety, Hx Attention Deficit Hyperactivity Disorder, Hx Bipolar Disorder, Hx Depression, Hx Post Traumatic Stress Disorder Traumatic Medical History: Reports: Hx Fractures - nose Infectious Medical History: Reports: None Past Surgical History: Reports: Hx Abdominal Surgery - LAPAROSCOPY, Hx Gynecologic Surgery - d&c, lap for endometriosis, Hx Nose Surgery - Reconstruction for fracture, Other - facial reconstruction - Immunizations Immunizations up to date: Yes Hx Diphtheria, Pertussis, Tetanus Vaccination: Yes - 2010 Vertical Provider Document - CONSTITUTIONAL Agree With Documented VS: Yes Exam Limitations: No Limitations General Appearance: WD/WN Notes: >>>> PHYSICAL_EXAM: GENERAL_APPEARANCE: well_nourished, alert, cooperative, no_acute_distress, no_obvious_discomfort. pleasant young black female, smiling, speaking in full sentences, easily sitting up, in no sign of pain or resp distress, no one is with her. VITALS:reviewed, see vital signs table. EYES: PERRL, EOMI, conjunctiva_clear. NOSE: no_nasal_discharge. MOUTH: (-)decreased moisture. there are multiple dental caries noted. Tooth #31 is broken and is extremely carious. There is no localization for inflammation. There is no buccal swelling and tenderness to palpation. Uvula is midline. There is no trismus. There is no TMJ clicking produced most tenderness over the sternocleidomastoid muscles. There is no tenderness over the thyroid cartilage. There is no submandibular hardness. THROAT: no_tonsilar_inflammation/hypertrophy/exudate/thrush, tongue/lip swelling, ulcerations, no_airway_obstruction. uvula midline. no drooling, tripoding, voice change, or stridor, no sign of anaphylaxis or angioedema. NECK: supple, no_neck_tenderness, full rom and full strength. no meningeal signs. LUNGS: no_wheezing, no_rales, no_rhonchi, (-)accessory muscle use, good air exchange bilateral. HEART: normal_rate, normal_rhythm, EXTREMITIES: strength 5/5 in all extremities, good pulses in all extremities, no swelling\tenderness in the extremities, no edema. full rom. normal gait NEURO: motor and sensation intact to light touch, cranial nerves 2-12 intact SKIN: warm, dry, good_color, no_rash. MENTAL_STATUS: speech_clear, oriented_X_3 , normal_affect, responds_appropriately to questions. - INFECTION CONTROL TRAVEL OUTSIDE OF THE [place] IN LAST 30 DAYS: No Course - Re-evaluation Re-evalutation: pt here for dental pain-she does have dental decay. no sign of drainable dental abscess or ludwigs at this time. she also has a now resolved rash. it was itchy before. 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 advised pt she can cont to take benadryl prn any rash/itching. tylenol prn any pain. advised sx care. no sign of anaphylaxis, tens, paola k[place], or erythema multiforme. vss. strict return precautions given. pt tolerating po and well appearing. will dc with pcn vk. advised to f/u with pcp/dentist in 1-2 days. return for any worsening symptoms. vss. well appearing. satting well on ra. neurononfocal. pt understands and agrees to plan. On reexam, pt improved with tx listed. remained stable. nontoxic. well appearing. pain controlled. tolerating po. requesting to go home. Documentation achieved through voice recording which may lead to some occasional accidental typographical errors. Extensive efforts have been made to proof read documentation to make sure these are the least as possible. Category Date Time Status Penicillin V Potassium [Penicillin Vk 500 mg Tablet] Med 05/10/19 06:28 Discontinued 500 mg PO NOW ONE - Vital Signs Vital signs: Temp Pulse Resp BP Pulse Ox 98.1 F 101 H 17 133/99 H 100 05/10/19 04:31 05/10/19 04:31 05/10/19 04:31 05/10/19 04:31 05/10/19 04:31 Temp Pulse Resp BP Pulse Ox 05/10/19 06:33 98.3 F 100 16 111/72 100 05/10/19 04:31 98.1 F 101 H 17 133/99 H 100 Discharge - Discharge Clinical Impression: Rash, Pain, dental Condition: Good Disposition: HOME, SELF-CARE Instructions: [facility]aring [facility], Penicillin V K ([facility]), Toothache ([facility]) Additional Instructions: Follow-up with PCP/dentist in 1 to 2 days. Return for any worsening symptoms. tylenol as needed for any pain or fever if not allergic. take the medication as prescribed. Prescriptions: Penicillin V Potassium [Penicillin Vk 500 mg Tablet] 500 mg PO QID 10 Days #40 tablet
[2019-05-10] MEDS ORDERED: PENICILLIN V POTASSIUM 500 MG TABLET PO ONE (06:28)
[2019-05-10 06:35] VITALS: BP 111/72
== END 2019-05-10 06:33 | disposition home or self-care (01) ==
LOC: ER 04:23
DX: R21 Rash and other nonspecific skin eruption (principal); K02.9 Dental caries, unspecified; K08.89 Other specified disorders of teeth and supporting structures; I10 Essential (primary) hypertension
CPT/HCPCS: 99282; J3490

== ENCOUNTER 2019-05-12 06:46 | Emergency (ER) | payer MEDICAID ==
[2019-05-12] MEDS ORDERED: DIPHENHYDRAMINE HCL 50 MG/ML VIAL IM ONE ×2 (07:13→07:26)
[2019-05-12] MEDS ORDERED: HYDROXYZINE HCL INJ 50 MG/1 ML VIAL IM ONE (07:16)
--- NOTE | 2019-05-12 07:20 | ER Document Report ---
ED General <ORQUIDEA SEXTON - Last Filed: 05/12/19 12:51> - General TRAVEL OUTSIDE OF THE [place] IN LAST 30 DAYS: No <BIN LEON - Last Filed: 05/12/19 15:04> - General Chief Complaint: Psych Problem Stated Complaint: PSYCH Time Seen by Provider: 05/12/19 07:01 Primary Care Provider: [facility] [Outside] - 05/14/19 - HPI Notes: This is a 33-year-old female who presents today with a complaint of rash, itching, and depression. Patient states that she has had a rash for the past week which is itching. Patient states that she took some Benadryl earlier which helped. She also complains of being depressed. She states that she recently had a baby, and her has been coming in and out of her life. She states he is causing trouble and is stressing her out. She feels sad and has been crying a lot. She denies any suicidal or homicidal ideation. (BIN LEON) - Related Data Allergies/Adverse Reactions: ketorolac tromethamine [From Toradol] Allergy (Verified 05/12/19 07:13) meperidine HCl [From Demerol] Allergy (Verified 05/12/19 07:13) metoclopramide HCl [From Reglan] Allergy (Verified 05/12/19 07:13) morphine [Morphine] Allergy (Verified 05/12/19 07:13) nalbuphine [From Nubain] Allergy (Verified 05/12/19 07:13) Hives tramadol [Tramadol] Allergy (Verified 05/12/19 07:13) Hives ondansetron HCl [From Zofran] Adverse Reaction (Verified 05/12/19 07:13) VOMITING Past Medical History - Social History Smoking Status: Current Every Day Smoker Frequency of alcohol use: Occasional Drug Abuse: None Family History: Reviewed & Not Pertinent, Arthritis, DM, Hyperlipidemia, Hypertension - Past Medical History Cardiac Medical History: Reports: Hx Hypertension Neurological Medical History: Reports: Hx Migraine Renal/ Medical History: Denies: Hx Peritoneal Dialysis Musculoskeletal Medical History: Reports Hx Musculoskeletal Trauma Psychiatric Medical History: Reports: Hx Anxiety, Hx Attention Deficit Hyperactivity Disorder, Hx Bipolar Disorder, Hx Depression, Hx Post Traumatic Stress Disorder Traumatic Medical History: Reports: Hx Fractures - nose Past Surgical History: Reports: Hx Abdominal Surgery - LAPROSCOPY, Hx Gynecologic Surgery - d&c, lap for endometriosis, Hx Nose Surgery - Reconstruction for fracture, Other - facial reconstruction - Immunizations Immunizations up to date: Yes Hx Diphtheria, Pertussis, Tetanus Vaccination: Yes - 2010 <BIN LEON P - Last Filed: 05/12/19 15:04> Review of Systems - Review of Systems Cardiovascular: denies: Chest pain Gastrointestinal: denies: Abdominal pain, Diarrhea, Vomiting Skin: Rash Neurological/Psychological: Depression, Anxiety. denies: Homicidal ideation, Suicidal ideation -: Yes All other systems reviewed and negative <BIN LEON P - Last Filed: 05/12/19 15:04> Physical Exam - General General appearance: Appears well, Alert - HEENT Head: Normocephalic, Atraumatic Eyes: Normal Pupils: PERRL - Respiratory Respiratory status: No respiratory distress Chest status: Nontender Breath sounds: Normal Chest palpation: Normal - Cardiovascular Rhythm: Regular Heart sounds: Normal auscultation Murmur: No - Abdominal Inspection: Normal Distension: No distension Bowel sounds: Normal Tenderness: Nontender Organomegaly: No organomegaly - Psychological Associated symptoms: Anxious - Patient appears anxious. She is tearful. She denies suicidal or homicidal ideation. - Skin Skin Temperature: Warm Skin Moisture: Dry Skin Color: Normal Skin irregularity: Rash - Patient has a blanching macular rash on the back of her neck and her upper back. No vesicles to suggest zoster. Rash is pruritic. <BIN LEON - Last Filed: 05/12/19 15:04> - Vital signs Vitals: Temp Pulse Resp BP Pulse Ox 98 F 113 H 26 H 155/115 H 99 05/12/19 06:51 05/12/19 06:51 05/12/19 06:51 05/12/19 06:51 05/12/19 06:51 Course - Laboratory Result Diagrams: 05/12/19 07:22 05/12/19 07:22 <ORQUIDEA SEXTON - Last Filed: 05/12/19 12:51> - Laboratory Result Diagrams: 05/12/19 07:22 05/12/19 07:22 - EKG Interpretation by Sd EKG shows normal: Sinus rhythm Rate: Normal, Tachycardia - EKG shows normal sinus rhythm at 107 bpm. Normal axis. Normal intervals. No acute injury pattern. <BIN LEON - Last Filed: 05/12/19 15:04> - Re-evaluation Re-evalutation: 05/12/19 07:20 Clinical picture is consistent with allergic contact dermatitis. 2. Depression likely depression. Will check basic labs. Will give her antihistamines and prednisone for her rash. Will get behavioral health evaluation done. 05/12/19 15:00 Pt has been seen by behavioral health team. She has been given Haldol which she states works well for her. She is doing well. Recommendation for discharge is made. No SI or HI. Will discharge her. (BIN LEON) - Vital Signs Vital signs: Temp Pulse Resp BP Pulse Ox 98.5 F 99 16 120/82 99 05/12/19 09:13 05/12/19 09:13 05/12/19 09:13 05/12/19 09:13 05/12/19 09:13 - Laboratory Laboratory results interpreted by me: 05/12/19 05/12/19 07:22 07:22 WBC 3.9 L Seg Neuts % (Manual) 33 L Monocytes % (Manual) 19 H Abs Neuts (Manual) 1.3 L Sodium 136.8 L Total Protein 8.3 H Salicylates < 1.0 L Acetaminophen < 10 L Discharge <ORQUIDEA SEXTON - Last Filed: 05/12/19 12:51> <BIN LEON - Last Filed: 05/12/19 15:04> - Discharge Clinical Impression: Depression Qualifiers: Depression Type: depression Qualified Code(s): O99.345 - Other mental disorders complicating the puerperium; F53.0 - depression; O90.6 - mood disturbance Allergic contact dermatitis Qualifiers: Contact dermatitis trigger: unspecified trigger Qualified Code(s): L23.9 - Allergic contact dermatitis, unspecified cause Condition: Stable Disposition: HOME, SELF-CARE Instructions: Depression ([facility]), Contact Dermatitis ([facility]) Additional Instructions: You have been seen by both medical and behavioral health teams and have been edison med appropriate for discharge. Please follow up with your outpatient mental health provider, EDDIE on Tuesday05/14/2019 at your regularly scheduled anointment. You have been provided an economic resource list which included both the senior care information and housing case management assistance. DEPRESSION: Your evaluation reveals that you have mental depression. While symptoms may be vague, they often include disturbance of sleep, fatigue, loss of appetite, and general loss of interest in life. While depression may be a side effect of drugs, or a reaction to a major change in your life, many cases have no known cause. If depression is acute, and related to a major loss in your life, you can expect it to clear completely with time. If you have been depressed a long time, are prone to repeated bouts of depression or low mood, or have been thinking of suicide, get help. Depression can be treated with anti-depressant medication and counselling. Long-term depression will often take a few weeks to clear, even with appropriate medication. Follow-up care is important. FOLLOW-UP CARE: If you have been referred to a physician for follow-up care, call the physicians office for an appointment as you were instructed or within the next two days.~ If you experience worsening or a significant change in your symptoms, notify the physician immediately or return to the Emergency Department at any time for re-evaluation. Take Benadryl as needed for rash/itching. Referrals: [facility] [Outside] - 05/14/19
[2019-05-12] MEDS ORDERED: PREDNISONE 20 MG TABLET PO ONE (07:21)
[2019-05-12 07:45] LABS: HEMATOCRIT 38.4 % (36.0-47.0); HEMOGLOBIN 12.8 g/dL (12.0-15.5); MEAN CORPUSCULAR HEMOGLOBIN 28.7 pg (27.0-33.4); MEAN CORPUSCULAR HGB CONC 33.3 g/dL (32.0-36.0); MEAN CORPUSCULAR VOLUME 86 fl (80-97); PLATELET COUNT 171 10^3/uL (150-450); RED BLOOD COUNT 4.47 10^6/uL (3.72-5.28); RED CELL DISTRIBUTION WIDTH 13.6 % (11.5-14.0); WHITE BLOOD COUNT 3.9 10^3/uL (4.0-10.5)
[2019-05-12 07:58] LABS: ALKALINE PHOSPHATASE 103 U/L (38-126); ANION GAP 13 (5-19); ASPARTATE AMINO TRANSFERASE 32 U/L (14-36); BILIRUBIN,DIRECT 0.2 mg/dL (0.0-0.4); BILIRUBIN,TOTAL 0.7 mg/dL (0.2-1.3); BLOOD UREA NITROGEN 13 mg/dL (7-20); CALCIUM 10.1 mg/dL (8.4-10.2); CARBON DIOXIDE 24 mmol/L (22-30); CHLORIDE 100 mmol/L (98-107); GLUCOSE 102 mg/dL (75-110); POTASSIUM 3.9 mmol/L (3.6-5.0); TOTAL PROTEIN 8.3 g/dL (6.3-8.2)
[2019-05-12 08:00] LABS: ACETAMINOPHEN < 10 ug/mL (10-30); SALICYLATE < 1.0 mg/dL (2.0-20.0)
[2019-05-12 08:12] LABS: ABSOLUTE LYMPHOCYTES# (MANUAL) 1.6 10^3/uL (0.5-4.7); ABSOLUTE MONOCYTES # (MANUAL) 0.7 10^3/uL (0.1-1.4); BASOPHILS % (MANUAL) 2 % (0-2); EOSINOPHILS % (MANUAL) 6 % (0-6); LYMPHOCYTES % (MANUAL) 40 % (13-45); MONOCYTES % (MANUAL) 19 % (3-13); SEGMENTED NEUTROPHILS % (MAN) 33 % (42-78); TOTAL CELLS COUNTED 100
[2019-05-12 08:13] LABS: PLATELET COMMENT ADEQUATE; RBC MORPHOLOGY COMMENT NORMO-CYTIC/CHROMIC
[2019-05-12 08:17] LABS: URINE AMPHETAMINES SCREEN UNCONFIRMED POSITIVE; URINE BARBITURATES SCREEN NEGATIVE; URINE BENZODIAZEPINES SCREEN NEGATIVE; URINE COCAINE SCREEN NEGATIVE; URINE MARIJUANA (THC) SCREEN NEGATIVE; URINE METHADONE SCREEN NEGATIVE; URINE PHENCYCLIDINE SCREEN NEGATIVE
--- NOTE | 2019-05-12 09:04 | EKG REPORT ---
SEVERITY:- BORDERLINE ECG - SINUS TACHYCARDIA BORDERLINE T WAVE ABNORMALITIES : Confirmed by: Dustin Andres MD 12-May-2019 09:03:51
--- NOTE | 2019-05-12 12:30 | PSYCHOLOGICAL NOTE ---
Psych Note - Psych Note Date seen by psych provider: 05/12/19 Time seen by psych provider: 10:00 Psych Note: Reason for Consult: depression Pt arrives from home where she resides with . Pt reports since giving a month ago she has been feeling hopeless and depressed. Denies any SI/HI. Pt reports she has been to ER for multiple reasons this week which has lead her to getting home late causing her to miss her night time dose of 600mg Seroquel. Denies missing any other medication doses this week of home medication regimen. As a result she hasn't been sleeping or eating. Pt is tearful and rambling about multiple vague complaints. Patient is alert and orientated to person, place, time and circumstance. Mood is euthymic with congruent affect. Patient denies suicidal and homicidal ideations. Delusions are absent behaviors congruent with an intact reality based presentation i.e. organized and linear thought process. Eye contact is well-maintained. Conversational speech is within normal rate, tone and prosody. Intellectual abilities appear to be within the average range. Attention and concentration are fair. Insight, judgment, impulse control are fair. probable depression Chronic housing instability; currently homeless R/O substance abuse Medication recommendations per [facility]'s contracted psychiatrist Dr Sung BEARD are as follows Haldol 5mg IM once Impression/plan: Patient is cleared from acute psychiatric services. Patient does not meet IVC criteria per [place] GS 122C. Patient is known to this clinician and department and has been seen multiple times in the past. Patient has demonstrated a pattern of behavior that appears to be drug-seeking in the past; currently she is expressing increase in depression due to losing custody of her child (born 04/11/2019) and not having stable housing. At this time patient is denying suicidal and homicidal ideation is not demonstrating psychosis or being under the influence. Patient is encouraged to follow[facility]up [facility] at her regular scheduled appointment 05/14/2019 to discuss medication management to address her increased depression. Patient was provided economic resources which includes long-term and housing case management resources. Dr. Choudhury was consulted and the care management of this patient; attending physicians in agreement with recommendations and disposition.
[2019-05-12] MEDS ORDERED: HALOPERIDOL LACTATE INJ 5 MG/1 ML VIAL IM ONE (12:31)
[2019-05-12 15:20] VITALS: BP 127/81
== END 2019-05-12 15:19 | disposition home or self-care (01) ==
LOC: ER 06:46
DX: O99.345 Other mental disorders complicating the puerperium (principal); F53.0 Postpartum depression; F41.9 Anxiety disorder, unspecified; O99.73 Diseases of the skin and subcutaneous tissue complicating the puerperium; L23.9 Allergic contact dermatitis, unspecified cause; O99.335 Smoking (tobacco) complicating the puerperium; F17.200 Nicotine dependence, unspecified, uncomplicated; O16.5 Unspecified maternal hypertension, complicating the puerperium; Z63.0 Problems in relationship with spouse or partner; Z88.8 Allergy status to other drugs, medicaments and biological substances; Z88.5 Allergy status to narcotic agent
CPT/HCPCS: 93005; 36415; 80307 ×3; 85025; 81025; 80053; 93010; J1200; J1630; 96374; 96375; 99285

== ENCOUNTER 2019-05-16 16:55 | Emergency (ER) | payer MEDICAID ==
[2019-05-16] MEDS ORDERED: PROMETHAZINE HCL INJ 25 MG/1 ML VIAL IM ONE ×2 (17:34→18:12)
--- NOTE | 2019-05-16 17:44 | ER Document Report ---
ED Medical Screen (RME) - General Chief Complaint: Allergic Reaction Stated Complaint: POSSIBLE ALLERGIC REACTION/RASH Time Seen by Provider: 05/16/19 17:22 Mode of Arrival: Medic Information source: Patient, Emergency Med Personnel Notes: Patient presents to the emergency department with complaints of itching. Reports she took a new medication today. Patient is rambling like she is in a m anic phase with disconnected thoughts. No complaints of suicidal or homicidal thoughts. Unable to get patient to slow down. She is insisting on IM or IV medications. She is insisting on IM Phenergan. Refuses p.o. medications. She received 50 mg IV Benadryl via EMS. Patient is talking a clear voice no respiratory distress. Patient reports she is on at least 10 psych meds. I have greeted and performed a rapid initial assessment of this patient. A comprehensive ED assessment and evaluation of the patient, analysis of test results and completion of the medical decision making process will be conducted by additional ED providers. Dictation of this chart was performed using voice recognition software; therefore, there may be some unintended grammatical errors. TRAVEL OUTSIDE OF THE [place] IN LAST 30 DAYS: No - Related Data Allergies/Adverse Reactions: ketorolac tromethamine [From Toradol] Allergy (Verified 05/16/19 17:28) meperidine HCl [From Demerol] Allergy (Verified 05/16/19 17:28) metoclopramide HCl [From Reglan] Allergy (Verified 05/16/19 17:28) morphine [Morphine] Allergy (Verified 05/16/19 17:28) nalbuphine [From Nubain] Allergy (Verified 05/16/19 17:28) Hives tramadol [Tramadol] Allergy (Verified 05/16/19 17:28) Hives ondansetron HCl [From Zofran] Adverse Reaction (Verified 05/16/19 17:28) VOMITING Past Medical History - Social History Chew tobacco use (# tins/day): No Frequency of alcohol use: None Drug Abuse: None Family history: None - Past Medical History Cardiac Medical History: Reports: Hx Hypertension Neurological Medical History: Reports: Hx Migraine Renal/ Medical History: Denies: Hx Peritoneal Dialysis Musculoskeltal Medical History: Reports Hx Musculoskeletal Trauma Psychiatric Medical History: Reports: Hx Anxiety, Hx Attention Deficit Hyperactivity Disorder, Hx Bipolar Disorder, Hx Depression, Hx Post Traumatic Stress Disorder Traumatic Medical History: Reports: Hx Fractures - nose Past Surgical History: Reports: Hx Abdominal Surgery - LAPROSCOPY, Hx Gynecologic Surgery - d&c, lap for endometriosis, Hx Nose Surgery - Reconstruction for fracture, Other - facial reconstruction - Immunizations Immunizations up to date: Yes Hx Diphtheria, Pertussis, Tetanus Vaccination: Yes - 2010 Physical Exam - Vital signs Vitals: Pulse Resp BP Pulse Ox 97 18 149/101 H 100 05/16/19 17:13 05/16/19 17:13 05/16/19 17:13 05/16/19 17:13 Course - Vital Signs Vital signs: Temp Pulse Resp BP Pulse Ox 97 18 149/101 H 100 05/16/19 17:13 05/16/19 17:13 05/16/19 17:13 05/16/19 17:13
[2019-05-16] MEDS ORDERED: HALOPERIDOL LACTATE INJ 5 MG/1 ML VIAL IM ONE (18:12)
[2019-05-16 18:16] LABS: APPEARANCE,URINE SLIGHTLY-CLOUDY; BILIRUBIN,URINE NEGATIVE (NEGATIVE); COLOR,URINE STRAW; GLUCOSE, URINE NEGATIVE (NEGATIVE); KETONES,URINE NEGATIVE (NEGATIVE); LEUKOCYTE ESTERASE,URINE TRACE (NEGATIVE); NITRITE,URINE NEGATIVE (NEGATIVE); PROTEIN,URINE NEGATIVE (NEGATIVE); URINE SPECIFIC GRAVITY 1.006; UROBILINOGEN,URINE NEGATIVE mg/dL (<2.0)
[2019-05-16] MEDS ORDERED: FAMOTIDINE INJ/PF 20 MG/2 ML SDV IV ONE (18:18)
--- NOTE | 2019-05-16 18:22 | ER Document Report ---
ED General - General Chief Complaint: Allergic Reaction Stated Complaint: POSSIBLE ALLERGIC REACTION/RASH Time Seen by Provider: 05/16/19 17:22 Mode of Arrival: Medic TRAVEL OUTSIDE OF THE [place] IN LAST 30 DAYS: No - HPI Notes: Patient is a 33-year-old female with a history of depression, anxiety, panic attacks and on several medications including Rexulti and Haldol w ith recent discontinuation today of Lamictal who presents requesting a shot of Haldol and Phenergan for her anxiousness and intermittent nausea. Patient states that she was having a panic style attack in the waiting room. She was originally brought here for possible rash and itching which they are not sure is related to medication or not and was given Benadryl. Patient states that the Benadryl has helped. Her psychiatrist, Dr. Almendarez stopped her Lamictal today as a possibility for the possible allergic reaction. She is able to eat and drink without difficulty. She is currently homeless. She is urinating normally and having normal bowel movements. Patient states that she does have constant and continuous thoughts running through her head, but no SI/HI. 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 Denies any headache, fever, head injury, neck pain, URI, sore throat, chest pain, palpitations, syncope, cough, shortness of breath, wheeze, dyspnea, abdominal pain, nausea/vomiting/diarrhea, urinary retention, dysuria, hematuria, loss of control of bowel or bladder, numbness/tingling, saddle anesthesia, muscle paralysis/weakness. - Related Data Allergies/Adverse Reactions: ketorolac tromethamine [From Toradol] Allergy (Verified 05/16/19 17:28) meperidine HCl [From Demerol] Allergy (Verified 05/16/19 17:28) metoclopramide HCl [From Reglan] Allergy (Verified 05/16/19 17:28) morphine [Morphine] Allergy (Verified 05/16/19 17:28) nalbuphine [From Nubain] Allergy (Verified 05/16/19 17:28) Hives tramadol [Tramadol] Allergy (Verified 05/16/19 17:28) Hives ondansetron HCl [From Zofran] Adverse Reaction (Verified 05/16/19 17:28) VOMITING Past Medical History - General Information source: Patient, Emergency Med Personnel - Social History Smoking Status: Current Every Day Smoker Chew tobacco use (# tins/day): No Frequency of alcohol use: None Drug Abuse: None Family History: Reviewed & Not Pertinent, Arthritis, DM, Hyperlipidemia, Hypertension Patient has suicidal ideation: No Patient has homicidal ideation: No - Past Medical History Cardiac Medical History: Reports: Hx Hypertension Neurological Medical History: Reports: Hx Migraine Renal/ Medical History: Denies: Hx Peritoneal Dialysis Musculoskeletal Medical History: Reports Hx Musculoskeletal Trauma Psychiatric Medical History: Reports: Hx Anxiety, Hx Attention Deficit Hyperactivity Disorder, Hx Bipolar Disorder, Hx Depression, Hx Post Traumatic Stress Disorder Traumatic Medical History: Reports: Hx Fractures - nose Past Surgical History: Reports: Hx Abdominal Surgery - LAPROSCOPY, Hx Gynecologic Surgery - d&c, lap for endometriosis, Hx Nose Surgery - Reconstruction for fracture, Other - facial reconstruction - Immunizations Immunizations up to date: Yes Hx Diphtheria, Pertussis, Tetanus Vaccination: Yes - 2010 Review of Systems - Review of Systems -: Yes All other systems reviewed and negative Physical Exam - Vital signs Vitals: Pulse Resp BP Pulse Ox 97 18 149/101 H 100 05/16/19 17:13 05/16/19 17:13 05/16/19 17:13 05/16/19 17:13 - Notes Notes: PHYSICAL EXAMINATION: GENERAL: Well-appearing, well-nourished and in no acute distress. A&Ox4. Answers questions appropriately. HEAD: Atraumatic, normocephalic. EYES: Pupils equal round and reactive to light, extraocular movements intact, sclera anicteric, conjunctiva are normal. No nystagmus. ENT: Nares patent and without discharge. oropharynx clear without exudates. No tonsilar hypertrophy or erythema. Moist mucous membranes. No evidence of angioedema. No airway compromise. NECK: Normal range of motion, supple without lymphadenopathy. No rigidity/meningismus. No midline tenderness. LUNGS: Breath sounds clear to auscultation bilaterally and equal. No wheezes rales or rhonchi. HEART: Regular rate and rhythm without murmurs, rubs, gallops. ABDOMEN: Soft, nontender, nondistended abdomen. No guarding, no rebound. Normal bowel sounds present. No CVA tenderness bilaterally. Musculoskeletal: Ext b/l: FROM to passive/active. Strength 5+/5. No deficits noted. No bony tenderness of extremities. Extremities: No cyanosis, clubbing, or edema b/l. Peripheral pulses 2+. Capillary refill less than 2 seconds. NEUROLOGICAL: NIH 0. GCS 15. Cranial nerves grossly intact. Normal speech, normal gait. Normal sensory, motor exams. PSYCH: mild flight of ideas, able to follow conversation but does go off on off topic discussions. Pt then becomes tearful and appears somewhat anxious. SKIN: Warm, Dry, normal turgor, no rashes or lesions noted. No hives in area of concern to the posterior upper back area. Course - Re-evaluation Re-evalutation: 05/16/19 18:22 I have reviewed this case with Dr. Pablo. We will give a smaller dose of haldol (3mg) IM and phenergan 12.5mg IM with pepcid 20mg IM. Pt is considering voluntarily staying pending how she feels after observation. No SI/HI. Pt does not appear to be manic right now, but does appear anxious and became tearful thereafter. No visual/auditory hallucinations. Labs pending. 05/16/19 19:48 Patient is an afebrile, well-hydrated, 33-year-old female who presents with anxiety and possible allergy to medication. Vitals are acceptable without significant tachycardia, tachypnea, or hypoxia. PE is otherwise unremarkable. Patient is nontoxic-appearing and is tolerating p.o. without difficulty. Labs are unremarkable for any acute pathology. EKG also unremarkable. No further work-up warranted at this time. Patient states that she is feeling much better and would like to go home. Patient does not feel that she needs to speak with our psychology team at this time. Patient does have a ride to go home. She has not had any SI/HI. She is not currently manic. Patient is following conversation appropriately and is able to make decisions for herself at this time. I did review with Dr. Pablo who agrees with disposition plan and that patient does not meet IVC criteria. She does have access to her psychiatrist whom she saw today and can call tomorrow. She is also going to be picking up her prescriptions tomorrow. Low suspicion for necrotizing fasciitis, SJS, SSS, drug reaction, sepsis, meningitis, syphilis, Lyme disease, Alsey spotted fever, or emergent condition at this time. Patient to follow-up with her psychiatrist tomorrow and/or her PCM. Return to the ED with any other worsening/concerning symptoms. Patient is in agreement. - Vital Signs Vital signs: Temp Pulse Resp BP Pulse Ox 97 18 149/101 H 100 05/16/19 17:13 05/16/19 17:13 05/16/19 17:13 05/16/19 17:13 - Laboratory Result Diagrams: 05/16/19 18:34 05/16/19 17:50 Laboratory results interpreted by me: 05/16/19 05/16/19 05/16/19 17:50 17:50 18:34 Cass % (Auto) 15.5 H Eos % (Auto) 8.5 H Calcium 10.8 H Total Protein 8.5 H Urine Blood LARGE H Ur Leukocyte Esterase TRACE H Salicylates < 1.0 L Acetaminophen < 10 L Discharge - Discharge Clinical Impression: Itchy skin, Anxiousness Condition: Stable Disposition: HOME, SELF-CARE Additional Instructions: Keep the skin clean Wash with soap and water Tylenol/ibuprofen if needed Triple antibiotic ointment daily Take home medication as directed Monitor for any worsening symptoms Recheck with your PCM this week Call your psychiatrist tomorrow for follow-up* Return to the ED with any worsening symptoms and/or development of fever, headache, changes in behavior/mentation/vision/speech, chest pain, palpitations, syncope, shortness of breath, trouble breathing, abdominal pain, n/v/d, blood in stool/urine, loss of control of bowel/bladder, urinary retention, muscle weakness/paralysis, saddle anesthesia, numbness/tingling, suicidal or homicidal ideations, visual or auditory hallucinations, being manic, or other worsening symptoms that are concerning to you. Forms: Elevated Blood Pressure, Smoking Cessation Education Referrals: [facility] [Provider Group] - Follow up as needed
[2019-05-16 18:23] LABS: ALKALINE PHOSPHATASE 87 U/L (38-126); ANION GAP 11 (5-19); ASPARTATE AMINO TRANSFERASE 34 U/L (14-36); BILIRUBIN,DIRECT 0.3 mg/dL (0.0-0.4); BILIRUBIN,TOTAL 0.8 mg/dL (0.2-1.3); BLOOD UREA NITROGEN 12 mg/dL (7-20); CALCIUM 10.8 mg/dL (8.4-10.2); CARBON DIOXIDE 25 mmol/L (22-30); CHLORIDE 104 mmol/L (98-107); GLUCOSE 109 mg/dL (75-110); POTASSIUM 3.9 mmol/L (3.6-5.0); TOTAL PROTEIN 8.5 g/dL (6.3-8.2)
[2019-05-16 18:25] LABS: ACETAMINOPHEN < 10 ug/mL (10-30); ALCOHOL < 10 mg/dL (NONE DETECTED); SALICYLATE < 1.0 mg/dL (2.0-20.0)
[2019-05-16 18:29] LABS: URINE AMPHETAMINES SCREEN NEGATIVE; URINE BARBITURATES SCREEN NEGATIVE; URINE BENZODIAZEPINES SCREEN NEGATIVE; URINE COCAINE SCREEN NEGATIVE; URINE MARIJUANA (THC) SCREEN NEGATIVE; URINE METHADONE SCREEN NEGATIVE; URINE PHENCYCLIDINE SCREEN NEGATIVE
[2019-05-16 18:51] LABS: ABSOLUTE EOSINOPHILS # (AUTO) 0.4 10^3/uL (0.0-0.6); ABSOLUTE LYMPHOCYTES (AUTO) 1.4 10^3/uL (0.5-4.7); ABSOLUTE MONOCYTES (AUTO) 0.7 10^3/uL (0.1-1.4); ABSOLUTE NEUT (AUTO) 2.1 10^3/uL (1.7-8.2); BASOPHILS % (AUTO) 0.5 % (0-2); EOSINOPHILS % (AUTO) 8.5 % (0-6); HEMOGLOBIN 12.3 g/dL (12.0-15.5); LYMPHOCYTES % (AUTO) 30.1 % (13-45); MEAN CORPUSCULAR HEMOGLOBIN 28.6 pg (27.0-33.4); MEAN CORPUSCULAR HGB CONC 33.1 g/dL (32.0-36.0); MEAN CORPUSCULAR VOLUME 86 fl (80-97); MONOCYTES % (AUTO) 15.5 % (3-13); PLATELET COUNT 168 10^3/uL (150-450); RED BLOOD COUNT 4.29 10^6/uL (3.72-5.28); RED CELL DISTRIBUTION WIDTH 13.7 % (11.5-14.0); SEGMENTED NEUTROPHILS % (AUTO) 45.4 % (42-78); TOTAL CELLS COUNTED % (AUTO) 100 %; WHITE BLOOD COUNT 4.6 10^3/uL (4.0-10.5)
[2019-05-16 20:20] VITALS: BP 126/87
--- NOTE | 2019-05-17 09:13 | EKG REPORT ---
SEVERITY:- BORDERLINE ECG - SINUS RHYTHM BORDERLINE PROLONGED QT INTERVAL NONSPECIFIC ST-T CHANGES : Confirmed by: Lin Jorge 17-May-2019 09:11:18
== END 2019-05-16 20:15 | disposition home or self-care (01) ==
LOC: ER 16:55
DX: L29.9 Pruritus, unspecified (principal); F41.9 Anxiety disorder, unspecified; F41.0 Panic disorder [episodic paroxysmal anxiety]; T78.40XA Allergy, unspecified, initial encounter; Z79.899 Other long term (current) drug therapy; F17.200 Nicotine dependence, unspecified, uncomplicated; I10 Essential (primary) hypertension
CPT/HCPCS: 93005; 99284; 96374; 96375; 36415; 80307 ×4; 84703; 85025; 80053; 81001; 93010; J1630; J2550; S0028

== ENCOUNTER 2019-05-24 21:25 | Emergency (ER) | payer MEDICAID ==
[2019-05-24] MEDS ORDERED: PROCHLORPERAZINE EDISYLATE INJ 10 MG/2 ML VIAL IV ONE (22:36)
[2019-05-24] MEDS ORDERED: DIPHENHYDRAMINE HCL 50 MG/ML VIAL IV ONE ×2 (22:36→23:32)
--- NOTE | 2019-05-24 22:38 | ER Document Report ---
ED Medical Screen (RME) - General Chief Complaint: Nausea/Vomiting/Diarrhea Stated Complaint: VOMITING Time Seen by Provider: 05/24/19 22:22 Mode of Arrival: Ambulatory Information source: Patient Notes: Patient is a 33-year-old female presenting to the emergency department with complaints of nausea, vomiting, diarrhea, headache and high blood pressure. Patient reports nausea vomiting and diarrhea started yesterday. She states she is unable to keep any of her medications down including her psychiatric medications. Patient also reports she is approximately 5 weeks and had preeclampsia. She is concerned as her blood pressure is elevated today. Patient is alert, oriented, answering all questions appropriately and has no acute distress noted. I have greeted and performed a rapid initial assessment of this patient. A comprehensive ED assessment and evaluation of the patient, analysis of test results and completion of the medical decision making process will be conducted by additional ED providers. I have specifically instructed the patient or family members with the patient to immediately return to any nursing staff should anything change in the patient's condition or with their chief complaint. This medical record was dictated with voice recognizing software. There may be grammatical, syntax errors that are unintended. TRAVEL OUTSIDE OF THE [place] IN LAST 30 DAYS: No - Related Data Allergies/Adverse Reactions: ketorolac tromethamine [From Toradol] Allergy (Verified 05/16/19 17:28) meperidine HCl [From Demerol] Allergy (Verified 05/16/19 17:28) metoclopramide HCl [From Reglan] Allergy (Verified 05/16/19 17:28) morphine [Morphine] Allergy (Verified 05/16/19 17:28) nalbuphine [From Nubain] Allergy (Verified 05/16/19 17:28) Hives tramadol [Tramadol] Allergy (Verified 05/16/19 17:28) Hives ondansetron HCl [From Zofran] Adverse Reaction (Verified 05/16/19 17:28) VOMITING Past Medical History - Social History Family history: None - Past Medical History Cardiac Medical History: Reports: Hx Hypertension Neurological Medical History: Reports: Hx Migraine Renal/ Medical History: Denies: Hx Peritoneal Dialysis Musculoskeltal Medical History: Reports Hx Musculoskeletal Trauma Psychiatric Medical History: Reports: Hx Anxiety, Hx Attention Deficit Hyperactivity Disorder, Hx Bipolar Disorder, Hx Depression, Hx Post Traumatic Stress Disorder Traumatic Medical History: Reports: Hx Fractures - nose Past Surgical History: Reports: Hx Abdominal Surgery - LAPROSCOPY, Hx Gynecologic Surgery - d&c, lap for endometriosis, Hx Nose Surgery - Reconstruction for fracture, Other - facial reconstruction - Immunizations Immunizations up to date: Yes Hx Diphtheria, Pertussis, Tetanus Vaccination: Yes - 2010 Physical Exam - Vital signs Vitals: Temp Pulse Resp BP Pulse Ox 97.7 F 147 H 17 180/119 H 92 05/24/19 22:28 05/24/19 22:28 05/24/19 22:28 05/24/19 22:28 05/24/19 22:28 Course - Vital Signs Vital signs: Temp Pulse Resp BP Pulse Ox 97.7 F 76 16 180/119 H 100 05/24/19 22:28 05/24/19 22:33 05/24/19 22:33 05/24/19 22:28 05/24/19 22:33
[2019-05-24 22:54] LABS: APPEARANCE,URINE CLEAR; BILIRUBIN,URINE NEGATIVE (NEGATIVE); COLOR,URINE COLORLESS; GLUCOSE, URINE NEGATIVE (NEGATIVE); KETONES,URINE NEGATIVE (NEGATIVE); LEUKOCYTE ESTERASE,URINE NEGATIVE (NEGATIVE); NITRITE,URINE NEGATIVE (NEGATIVE); PROTEIN,URINE NEGATIVE (NEGATIVE); URINE SPECIFIC GRAVITY 1.003; UROBILINOGEN,URINE NEGATIVE mg/dL (<2.0)
[2019-05-24] MEDS ORDERED: PROMETHAZINE HCL INJ 25 MG/1 ML VIAL IM ONE (23:32)
[2019-05-24] MEDS ORDERED: LABETALOL HCL INJ 20 MG/4 ML DISP.SYRIN IV ONE (23:51)
[2019-05-25] MEDS ORDERED: HALOPERIDOL LACTATE INJ 5 MG/1 ML VIAL IM ONE (00:02)
[2019-05-25 00:37] LABS: ABSOLUTE EOSINOPHILS # (AUTO) 0.3 10^3/uL (0.0-0.6); ABSOLUTE LYMPHOCYTES (AUTO) 2.1 10^3/uL (0.5-4.7); ABSOLUTE MONOCYTES (AUTO) 0.5 10^3/uL (0.1-1.4); ABSOLUTE NEUT (AUTO) 1.8 10^3/uL (1.7-8.2); BASOPHILS % (AUTO) 0.4 % (0-2); HEMATOCRIT 34.7 % (36.0-47.0); HEMOGLOBIN 11.3 g/dL (12.0-15.5); LYMPHOCYTES % (AUTO) 43.9 % (13-45); MEAN CORPUSCULAR HEMOGLOBIN 28.1 pg (27.0-33.4); MEAN CORPUSCULAR HGB CONC 32.7 g/dL (32.0-36.0); MEAN CORPUSCULAR VOLUME 86 fl (80-97); MONOCYTES % (AUTO) 11.2 % (3-13); PLATELET COUNT 174 10^3/uL (150-450); RED BLOOD COUNT 4.03 10^6/uL (3.72-5.28); RED CELL DISTRIBUTION WIDTH 13.5 % (11.5-14.0); SEGMENTED NEUTROPHILS % (AUTO) 37.5 % (42-78); TOTAL CELLS COUNTED % (AUTO) 100 %; WHITE BLOOD COUNT 4.7 10^3/uL (4.0-10.5)
[2019-05-25] MEDS ORDERED: ACETAMINOPHEN 325 MG TABLET PO ONE (00:52)
[2019-05-25 00:59] LABS: ALBUMIN 4.6 g/dL (3.5-5.0); ALKALINE PHOSPHATASE 77 U/L (38-126); ANION GAP 10 (5-19); ASPARTATE AMINO TRANSFERASE 29 U/L (14-36); BILIRUBIN,DIRECT 0.1 mg/dL (0.0-0.4); BILIRUBIN,TOTAL 0.3 mg/dL (0.2-1.3); BLOOD UREA NITROGEN 14 mg/dL (7-20); CALCIUM 9.9 mg/dL (8.4-10.2); CARBON DIOXIDE 24 mmol/L (22-30); CHLORIDE 109 mmol/L (98-107); GLUCOSE 85 mg/dL (75-110); POTASSIUM 3.7 mmol/L (3.6-5.0); TOTAL PROTEIN 7.8 g/dL (6.3-8.2)
--- NOTE | 2019-05-25 02:07 | ER Document Report ---
ED General - General Chief Complaint: Nausea/Vomiting/Diarrhea Stated Complaint: VOMITING Time Seen by Provider: 05/24/19 22:22 Mode of Arrival: Ambulatory Notes: Patient is a 33-year-old female presenting to the emergency department with complaints of nausea, vomiting, diarrhea, headache and high blood pressure. Leonela yanez reports nausea vomiting and diarrhea started yesterday. She states she is unable to keep any of her medications down including her psychiatric medications. Patient also reports she is approximately 5 weeks and had preeclampsia. She is concerned as her blood pressure is elevated today. Patient is alert, oriented, answering all questions appropriately and has no acute distress noted. Pt. has her medication bottles with her, they are from [facility], a Dr. Dominguez Patient voices this is where she gave . Patient is supposed to be on hydrochlorothiazide 25 mg daily, she has ran out of this medication. Patient supposed to take labetalol 400 mg every 8. Patient has multiple labetalol left. Patient supposed to be on Seroquel 50 mg 3 times daily, she has no Seroquel left. Patient is supposed to be on promethazine. Patient only has 2 promethazine tabs left. Initially patient voices Benadryl and promethazine are typically the only medications that help her generalized nausea and vomiting. TRAVEL OUTSIDE OF THE [place] IN LAST 30 DAYS: No - Related Data Allergies/Adverse Reactions: ketorolac tromethamine [From Toradol] Allergy (Verified 05/24/19 23:52) meperidine HCl [From Demerol] Allergy (Verified 05/24/19 23:52) metoclopramide HCl [From Reglan] Allergy (Verified 05/24/19 23:52) morphine [Morphine] Allergy (Verified 05/24/19 23:52) nalbuphine [From Nubain] Allergy (Verified 05/24/19 23:52) Hives prochlorperazine [From Compazine] Allergy (Verified 05/24/19 23:52) Hives tramadol [Tramadol] Allergy (Verified 05/24/19 23:52) Hives ondansetron HCl [From Zofran] Adverse Reaction (Verified 05/24/19 23:52) VOMITING Past Medical History - General Information source: Patient - Social History Smoking Status: Unknown if Ever Smoked Family History: Reviewed & Not Pertinent, Arthritis, DM, Hyperlipidemia, Hypertension Patient has suicidal ideation: No Patient has homicidal ideation: No - Past Medical History Cardiac Medical History: Reports: Hx Hypertension Neurological Medical History: Reports: Hx Migraine Renal/ Medical History: Denies: Hx Peritoneal Dialysis Musculoskeletal Medical History: Reports Hx Musculoskeletal Trauma Psychiatric Medical History: Reports: Hx Anxiety, Hx Attention Deficit Hyperactivity Disorder, Hx Bipolar Disorder, Hx Depression, Hx Post Traumatic Stress Disorder Traumatic Medical History: Reports: Hx Fractures - nose Past Surgical History: Reports: Hx Abdominal Surgery - LAPROSCOPY, Hx Gynecologic Surgery - d&c, lap for endometriosis, Hx Nose Surgery - Reconstruction for fracture, Other - facial reconstruction - Immunizations Immunizations up to date: Yes Hx Diphtheria, Pertussis, Tetanus Vaccination: Yes - 2010 Review of Systems - Review of Systems Constitutional: denies: Fever EENT: No symptoms reported Cardiovascular: No symptoms reported Respiratory: No symptoms reported Gastrointestinal: See HPI Genitourinary: No symptoms reported Female Genitourinary: See HPI Musculoskeletal: No symptoms reported Skin: No symptoms reported Hematologic/Lymphatic: No symptoms reported Neurological/Psychological: See HPI Physical Exam - Vital signs Vitals: Temp Pulse Resp BP Pulse Ox 97.7 F 147 H 17 180/119 H 92 05/24/19 22:28 05/24/19 22:28 05/24/19 22:28 05/24/19 22:28 05/24/19 22:28 - Notes Notes: GENERAL: Alert, interacts well. No acute distress. HEAD: Normocephalic, atraumatic. EYES: Pupils equal, round, and reactive to light. Extraocular movements intact. ENT: Oral mucosa moist, tongue midline. NECK: Full range of motion. Supple. Trachea midline. LUNGS: Clear to auscultation bilaterally, no wheezes, rales, or rhonchi. No respiratory distress. HEART: Regular rate and rhythm. No murmur ABDOMEN: Soft, slight left upper quadrant pain noted, otherwise abdominal exam unremarkable. Non-distended. Bowel sounds present in all 4 quadrants. EXTREMITIES: Moves all 4 extremities spontaneously. No edema, normal radial and dorsalis pedis pulses bilaterally. No cyanosis. BACK: no cervical, thoracic, lumbar midline tenderness. No saddle anesthesia, normal distal neurovascular exam. No CVA tenderness noted bilaterally. NEUROLOGICAL: Alert and oriented x3. Normal speech. cranial nerves II through XII grossly intact. PSYCH: Normal affect, normal mood. SKIN: Warm, dry, normal turgor. No rashes or lesions noted. Course - Re-evaluation Re-evalutation: Laboratory 05/24/19 05/24/19 05/24/19 00:26 00:26 22:23 WBC 4.7 RBC 4.03 Hgb 11.3 L Hct 34.7 L MCV 86 MCH 28.1 MCHC 32.7 RDW 13.5 Plt Count 174 Lymph % (Auto) 43.9 [place] % (Auto) 11.2 Eos % (Auto) 7.0 H Baso % (Auto) 0.4 Absolute Neuts (auto) 1.8 Absolute Lymphs (auto) 2.1 Absolute Monos (auto) 0.5 Absolute Eos (auto) 0.3 Absolute Basos (auto) 0.0 Seg Neutrophils % 37.5 L Sodium 143.0 Potassium 3.7 Chloride 109 H Carbon Dioxide 24 Anion Gap 10 BUN 14 Creatinine 0.67 Est GFR ( Amer) > 60 Est GFR (MDRD) Non-Af > 60 Glucose 85 Calcium 9.9 Magnesium 1.9 Total Bilirubin 0.3 Direct Bilirubin 0.1 Neonat Total Bilirubin Not Reportable Neonat Direct Bilirubin Not Reportable Neonat Indirect Bili Not Reportable AST 29 ALT 31 Alkaline Phosphatase 77 Total Protein 7.8 Albumin 4.6 Serum HCG, Qual Urine Color COLORLESS Urine Appearance CLEAR Urine pH 9.0 Ur Specific [place] 1.003 Urine Protein NEGATIVE Urine Glucose (UA) NEGATIVE Urine Ketones NEGATIVE Urine Blood NEGATIVE Urine Nitrite NEGATIVE Urine Bilirubin NEGATIVE Urine Urobilinogen NEGATIVE Ur Leukocyte Esterase NEGATIVE Urine WBC (Auto) 0 Squamous Epi Cells Auto 1 Urine Ascorbic Acid NEGATIVE 05/25/19 00:26 WBC RBC Hgb Hct MCV MCH MCHC RDW Plt Count Lymph % (Auto) Flag[place] % (Auto) Eos % (Auto) Baso % (Auto) Absolute Neuts (auto) Absolute Lymphs (auto) Absolute Monos (auto) Absolute Eos (auto) Absolute Basos (auto) Seg Neutrophils % Sodium Potassium Chloride Carbon Dioxide Anion Gap BUN Creatinine Est GFR ( Amer) Est GFR (MDRD) Non-Af Glucose Calcium Magnesium Total Bilirubin Direct Bilirubin Neonat Total Bilirubin Neonat Direct Bilirubin Neonat Indirect Bili AST ALT Alkaline Phosphatase Total Protein Albumin Serum HCG, Qual NEGATIVE Urine Color Urine Appearance Urine pH Ur Specific [place] Urine Protein Urine Glucose (UA) Urine Ketones Urine Blood Urine Nitrite Urine Bilirubin Urine Urobilinogen Ur Leukocyte Esterase Urine WBC (Auto) Squamous Epi Cells Auto Urine Ascorbic Acid Patient's labs are unremarkable. She was initially treated with Benadryl and promethazine. Patient voices she still feels generalized nausea. She has attempted to drink fluids and starts to dry heave. Patient voices typically Haldol does help. She is requesting an IM Haldol injection at this time. Haldol administered. Patient's been complaining of a generalized headache. She was able to p.o. Tylenol with no further episodes of vomiting. She has been treated with IV labetalol for high blood pressure. I discussed with her importance of taking her blood pressure medications as her blood pressure was noted to be elevated at today's visit. Upon discharge patient has had no further episodes of vomiting or dry heaving. She is currently denying a headache. She is neurovascular intact. Patient voices she has a appointment with her primary care provider on Tuesday. She is requesting medications to "hold me over" until her appointment on Tuesday. At this time will discharge with return precautions and follow-up recommendations. Verbal discharge instructions given a the bedside and opportunity for questions given. Medication warnings reviewed. Patient is in agreement with this plan and has verbalized understanding of return precautions and the need for primary care follow-up in the next 24-72 hours. This medical record was dictated with voice recognizing software. There may be grammatical, syntax errors that are unintended. - Vital Signs Vital signs: Temp Pulse Resp BP Pulse Ox 97.7 F 73 16 125/79 95 05/24/19 22:28 05/25/19 02:31 05/25/19 02:31 05/25/19 02:31 05/25/19 02:31 - Laboratory Result Diagrams: 05/24/19 00:26 05/24/19 00:26 Laboratory results interpreted by me: 05/24/19 05/24/19 00:26 00:26 Hgb 11.3 L Hct 34.7 L Eos % (Auto) 7.0 H Seg Neutrophils % 37.5 L Chloride 109 H Discharge - Discharge Clinical Impression: Nausea vomiting and diarrhea Hypertension Qualifiers: Hypertension type: unspecified Qualified Code(s): I10 - Essential (primary) hypertension Condition: Stable Disposition: HOME, SELF-CARE Instructions: Antinausea Medication ([facility]), High Blood Pressure ([facility]), Vomiting ([facility]) Additional Instructions: As we discussed you have been seen and treated in the emergency department for multiple complaints. Please take your medications as prescribed. Please also make sure you are taking your labetalol as prescribed. Please follow-up with your primary care provider on Tuesday as we discussed. Please return to the emergency room for any concerns. Prescriptions: Hydrochlorothiazide [Hydrodiuril 25 mg Tablet] 25 mg PO QAM #3 tablet Promethazine HCl [Phenergan 25 mg Tablet] 1 - 2 tab PO Q6H PRN #15 tablet PRN Reason: Quetiapine Fumarate [Seroquel 25 mg Tablet] 50 mg PO TID 3 Days tablet
[2019-05-25 02:33] VITALS: BP 125/79
== END 2019-05-25 02:31 | disposition home or self-care (01) ==
LOC: ER 21:25
DX: R11.2 Nausea with vomiting, unspecified (principal); R19.7 Diarrhea, unspecified; R51 Headache; I10 Essential (primary) hypertension; Z88.6 Allergy status to analgesic agent
CPT/HCPCS: 36415; 83735; 84703; 85025; 80053; 81001; J3490 ×2; J1200; J1630; J0780; J2550

== ENCOUNTER 2019-06-03 19:46 | Emergency (ER) | payer MEDICAID ==
--- NOTE | 2019-06-03 20:13 | ER Document Report ---
ED Medical Screen (RME) - General Chief Complaint: Medication Refill Stated Complaint: ANXIETY Time Seen by Provider: 06/03/19 20:06 Mode of Arrival: Ambulatory Information source: Patient Notes: Patient presents requesting a refill of her Klonopin and her blood pressure medication. Patient states she did take her blood pressure medicine today and she does have an appointment with her primary doctor tomorrow. Patient states that she ran out of Klonopin yesterday. Review of controlled substance database demonstrates that patient received a 10-day prescription for Klonopin that was filled on 05/26/2019. Patient denies any suicidal or homicidal ideation. I have greeted and performed a rapid initial assessment of this patient. A comprehensive ED assessment and evaluation of the patient, analysis of test results and completion of the medical decision making process will be conducted by additional ED providers. TRAVEL OUTSIDE OF THE [place] IN LAST 30 DAYS: No - Related Data Allergies/Adverse Reactions: ketorolac tromethamine [From Toradol] Allergy (Verified 05/24/19 23:52) meperidine HCl [From Demerol] Allergy (Verified 05/24/19 23:52) metoclopramide HCl [From Reglan] Allergy (Verified 05/24/19 23:52) morphine [Morphine] Allergy (Verified 05/24/19 23:52) nalbuphine [From Nubain] Allergy (Verified 05/24/19 23:52) Hives prochlorperazine [From Compazine] Allergy (Verified 05/24/19 23:52) Hives tramadol [Tramadol] Allergy (Verified 05/24/19 23:52) Hives ondansetron HCl [From Zofran] Adverse Reaction (Verified 05/24/19 23:52) VOMITING Past Medical History - Social History Chew tobacco use (# tins/day): No Frequency of alcohol use: None Drug Abuse: None Family history: None - Past Medical History Cardiac Medical History: Reports: Hx Hypertension Neurological Medical History: Reports: Hx Migraine Renal/ Medical History: Denies: Hx Peritoneal Dialysis Musculoskeltal Medical History: Reports Hx Musculoskeletal Trauma Psychiatric Medical History: Reports: Hx Anxiety, Hx Attention Deficit Hyperactivity Disorder, Hx Bipolar Disorder, Hx Depression, Hx Post Traumatic Stress Disorder Traumatic Medical History: Reports: Hx Fractures - nose Past Surgical History: Reports: Hx Abdominal Surgery - LAPROSCOPY, Hx Gynecologic Surgery - d&c, lap for endometriosis, Hx Nose Surgery - Reconstruction for fracture, Other - facial reconstruction - Immunizations Immunizations up to date: Yes Hx Diphtheria, Pertussis, Tetanus Vaccination: Yes - 2010 Physical Exam - Vital signs Vitals: Temp Pulse Resp BP Pulse Ox 98.2 F 102 H 17 137/87 H 99 06/03/19 19:54 06/03/19 19:54 06/03/19 19:54 06/03/19 19:54 06/03/19 19:54 - General General appearance: Alert - Respiratory Respiratory status: No respiratory distress Breath sounds: Normal Chest palpation: Normal - Cardiovascular Rhythm: Regular Heart sounds: S1 appreciated, S2 appreciated Course - Vital Signs Vital signs: Temp Pulse Resp BP Pulse Ox 98.2 F 102 H 17 137/87 H 99 06/03/19 19:54 06/03/19 19:54 06/03/19 19:54 06/03/19 19:54 06/03/19 19:54
[2019-06-03] MEDS ORDERED: CLONAZEPAM 1 MG TABLET PO ONE (20:58)
[2019-06-03] MEDS ORDERED: HALOPERIDOL LACTATE INJ 5 MG/1 ML VIAL IM ONE (20:58)
--- NOTE | 2019-06-03 21:11 | ER Document Report ---
ED General - General Chief Complaint: Medication Refill Stated Complaint: ANXIETY Time Seen by Provider: 06/03/19 20:06 Mode of Arrival: Ambulatory TRAVEL OUTSIDE OF THE [place] IN LAST 30 DAYS: No - HPI Patient complains to provider of: anxiety Notes: 33 y/o presenting to ED requesting a dose of clonazepam and a shot of haldol for anxiety she denies SI/HI/hallucinations she states she has an appt with her psychiatrist tomorrow and will be able to have her medications refilled at that time she is having panic attacks at home and states that when she gets like this haldol really helps she is here with her who states he has taken her home after receiving haldol shots before she is on an antipsychotic at home and reports compliance with that - Related Data Allergies/Adverse Reactions: ketorolac tromethamine [From Toradol] Allergy (Verified 05/24/19 23:52) meperidine HCl [From Demerol] Allergy (Verified 05/24/19 23:52) metoclopramide HCl [From Reglan] Allergy (Verified 05/24/19 23:52) morphine [Morphine] Allergy (Verified 05/24/19 23:52) nalbuphine [From Nubain] Allergy (Verified 05/24/19 23:52) Hives prochlorperazine [From Compazine] Allergy (Verified 05/24/19 23:52) Hives tramadol [Tramadol] Allergy (Verified 05/24/19 23:52) Hives ondansetron HCl [From Zofran] Adverse Reaction (Verified 05/24/19 23:52) VOMITING Past Medical History - General Information source: Patient - Social History Smoking Status: Current Every Day Smoker Chew tobacco use (# tins/day): No Frequency of alcohol use: None Drug Abuse: None Family History: Reviewed & Not Pertinent, Arthritis, DM, Hyperlipidemia, Hypertension Patient has suicidal ideation: No Patient has homicidal ideation: No - Past Medical History Cardiac Medical History: Reports: Hx Hypertension Neurological Medical History: Reports: Hx Migraine Renal/ Medical History: Denies: Hx Peritoneal Dialysis Musculoskeletal Medical History: Reports Hx Musculoskeletal Trauma Psychiatric Medical History: Reports: Hx Anxiety, Hx Attention Deficit Hyperactivity Disorder, Hx Bipolar Disorder, Hx Depression, Hx Post Traumatic Stress Disorder Traumatic Medical History: Reports: Hx Fractures - nose Past Surgical History: Reports: Hx Abdominal Surgery - LAPROSCOPY, Hx Gynecologic Surgery - d&c, lap for endometriosis, Hx Nose Surgery - Reconstruction for fracture, Other - facial reconstruction - Immunizations Immunizations up to date: Yes Hx Diphtheria, Pertussis, Tetanus Vaccination: Yes - 2010 Review of Systems - Review of Systems Constitutional: No symptoms reported EENT: No symptoms reported Cardiovascular: No symptoms reported Respiratory: No symptoms reported Gastrointestinal: No symptoms reported Genitourinary: No symptoms reported Female Genitourinary: No symptoms reported Musculoskeletal: No symptoms reported Skin: No symptoms reported Hematologic/Lymphatic: No symptoms reported Neurological/Psychological: Anxiety Physical Exam - Vital signs Vitals: Temp Pulse Resp BP Pulse Ox 98.2 F 102 H 17 137/87 H 99 06/03/19 19:54 06/03/19 19:54 06/03/19 19:54 06/03/19 19:54 06/03/19 19:54 Interpretation: Normal - General General appearance: Appears well, Alert - HEENT Head: Normocephalic, Atraumatic Eyes: Normal Pupils: PERRL - Respiratory Respiratory status: No respiratory distress Chest status: Nontender Breath sounds: Normal Chest palpation: Normal - Cardiovascular Rhythm: Regular Heart sounds: Normal auscultation Murmur: No - Abdominal Inspection: Normal Distension: No distension Bowel sounds: Normal Tenderness: Nontender Organomegaly: No organomegaly - Back Back: Normal, Nontender - Extremities General upper extremity: Normal inspection, Nontender, Normal color, Normal ROM, Normal temperature General lower extremity: Normal inspection, Nontender, Normal color, Normal ROM, Normal temperature, Normal weight bearing. No: Yovani's sign - Neurological Neuro grossly intact: Yes Cognition: Normal Orientation: AAOx4 Ron Coma Scale Eye Opening: Spontaneous Ron Coma Scale Verbal: Oriented Meno Coma Scale Motor: Obeys Commands Meno Coma Scale Total: 15 Speech: Normal Motor strength normal: LUE, RUE, LLE, RLE Sensory: Normal - Psychological Associated symptoms: Normal affect, Anxious. No: Manic, Tactile hallucinations, Visual hallucinations - Skin Skin Temperature: Warm Skin Moisture: Dry Skin Color: Normal Course - Re-evaluation Re-evalutation: 06/03/19 21:09 patient is here requesting a dose of clonazepam and a shot of haldol she reports she has an outpt mental health appt tomorrow she denies SI/HI/hallucinations currently she does not seem to represent an eminent danger to herself or others given that she has a responsible adult with her who can take her home and care for her, I will provide her with single doses of her requested medications for mood control and encourage compliance w/ outpt follow up appts she understands to return to the ED if her mood worsens or she has any concerns - Vital Signs Vital signs: Temp Pulse Resp BP Pulse Ox 98.2 F 102 H 17 137/87 H 99 06/03/19 19:54 06/03/19 19:54 06/03/19 19:54 06/03/19 19:54 06/03/19 19:54 Discharge - Discharge Clinical Impression: Anxiety, Elevated blood pressure reading Condition: Stable Disposition: HOME, SELF-CARE Instructions: Anxiety ([facility]) Additional Instructions: follow up with primary doctor as an outpatient as scheduled return to the ED with worsening Forms: Elevated Blood Pressure Referrals: ANTONELLA VIRGEN MD [HONORARY] - Follow up as needed
[2019-06-03] MEDS ORDERED: ACETAMINOPHEN 325 MG TABLET PO ONE (21:28)
[2019-06-03 21:45] VITALS: BP 125/98
== END 2019-06-03 21:45 | disposition home or self-care (01) ==
LOC: ER 19:46
DX: F41.9 Anxiety disorder, unspecified (principal); I10 Essential (primary) hypertension; F17.200 Nicotine dependence, unspecified, uncomplicated; Z79.899 Other long term (current) drug therapy; Z88.8 Allergy status to other drugs, medicaments and biological substances; Z88.5 Allergy status to narcotic agent
CPT/HCPCS: 99282; 96374; J3490 ×2; J1630

== ENCOUNTER 2019-06-10 04:17 | Emergency (ER) | payer MEDICAID, OTHER ==
[2019-06-10] MEDS ORDERED: OXYCODONE-ACETAMINOPHEN 5-325 MG TABLET PO ONE (04:43)
--- NOTE | 2019-06-10 04:54 | ER Document Report ---
ED GI/ - General Information source: Patient TRAVEL OUTSIDE OF THE [place] IN LAST 30 DAYS: No - HPI Patient complains to provider of: Abdominal pain, Vaginal bleeding. No: Diarrhea, Dysuria, Feeding tube problem, Flank pain, Mcmahon catheter problem, Hematuria, Missed/Late menses, Pelvic pain, , Urinary retention, Vaginal discharge, Vaginal pain, Vomiting, Other Onset: Just prior to arrival Timing/Duration: Gradual. denies: Sudden, Constant, Intermittent, Persistent, Waxing and waning, Better, Worse, Gone Quality of pain: Cramping. denies: No pain, Achy, Burning, Dull, Fullness, Pressure, Sharp, Stabbing, Throbbing, Other Severity at maximum: Mild Severity in ED: Mild Pain Level: 2 Location: RUQ. No: Chest pain, Epigastric, LUQ, LLQ, RLQ, Left flank, Right flank, Low back, Suprapubic, Pelvis, Vaginal, Vulvar, Rectal, Other Vaginal bleeding (Compared to normal period): Heavier. denies: None, Spotting, Chief Green Officer, Similar, Severe, Bright red, Dark brown, Passing clots, Passing tissue Menstrual period history: Irregular. denies: Abnormal, Missed, , S/P menopausal, Post-menopausal Associated symptoms: denies: None, Blood in emesis, Blood in stool, Chest pain, Chills, Coffee ground emesis, Constipation, Diarrhea, Dizzy, Dysuria, Fever, Hard stool, Hematuria, Hurts to breath, Inguinal mass, Lightheaded, Loss of appetite, Nausea, Odor, Painful intercourse, Radiates to back, Radiates to chest, Radiates to vagina, Radiates to shoulder, Shortness of breath, Sweaty, Syncope, Urinary hesitancy, Urinary frequency, Urinary retention, Urinary urgency, Vaginal discharge, Vomiting, Other Exacerbated by: denies: Denies, Supine, Sitting, Standing, Movement, Walking, Coughing, Deep breathing, Food, Other Relieved by: denies: Denies, Supine, Sitting, Standing, Remaining still, Antacids, Food, Other <NAOMIE SORIA - Last Filed: 06/10/19 05:17> <MEL MENDEZ - Last Filed: 06/10/19 07:51> - General Chief Complaint: Vaginal Bleeding Stated Complaint: ABDOMINAL PAIN Primary Care Provider: MIKO MENDEZ MD [Primary Care Provider] - Follow up as needed - Related Data Allergies/Adverse Reactions: ketorolac tromethamine [From Toradol] Allergy (Verified 05/24/19 23:52) meperidine HCl [From Demerol] Allergy (Verified 05/24/19 23:52) metoclopramide HCl [From Reglan] Allergy (Verified 05/24/19 23:52) morphine [Morphine] Allergy (Verified 05/24/19 23:52) nalbuphine [From Nubain] Allergy (Verified 05/24/19 23:52) Hives prochlorperazine [From Compazine] Allergy (Verified 05/24/19 23:52) Hives tramadol [Tramadol] Allergy (Verified 05/24/19 23:52) Hives ondansetron HCl [From Zofran] Adverse Reaction (Verified 05/24/19 23:52) VOMITING Past Medical History - Social History Smoking Status: Unknown if Ever Smoked Family History: Reviewed & Not Pertinent, Arthritis, DM, Hyperlipidemia, Hypertension Patient has suicidal ideation: No Patient has homicidal ideation: No - Past Medical History Cardiac Medical History: Reports: Hx Hypertension Neurological Medical History: Reports: Hx Migraine Renal/ Medical History: Denies: Hx Peritoneal Dialysis Musculoskeletal Medical History: Reports Hx Musculoskeletal Trauma Psychiatric Medical History: Reports: Hx Anxiety, Hx Attention Deficit Hyperactivity Disorder, Hx Bipolar Disorder, Hx Depression, Hx Post Traumatic Stress Disorder Traumatic Medical History: Reports: Hx Fractures - nose Past Surgical History: Reports: Hx Abdominal Surgery - LAPROSCOPY, Hx Gynecologic Surgery - d&c, lap for endometriosis, Hx Nose Surgery - Reconstruction for fracture, Other - facial reconstruction - Immunizations Immunizations up to date: Yes Hx Diphtheria, Pertussis, Tetanus Vaccination: Yes - 2010 <NAOMIE SORIA - Last Filed: 06/10/19 05:17> Review of Systems - Review of Systems Constitutional: denies: No symptoms reported, See HPI, Chills, Diaphoresis, Fever, Malaise, Weakness, Other, Weight gain, Weight loss, Recent illness Cardiovascular: denies: No symptoms reported, See HPI, Chest pain, Palpitations, Heart racing, Orthopnea, Dyspnea, Syncope, Dizziness, Lightheaded, Edema, Other, Paroxysmal Nocturnal Dysp Respiratory: denies: No symptoms reported, See HPI, Cough, Hurts to breathe, Hemoptysis, Short of breath, Sputum, Stridor, Wheezing, Other Gastrointestinal: Abdominal pain. denies: No symptoms reported, See HPI, Abdomen distended, Diarrhea, Nausea, Vomiting, Constipation, Blood streaked bowels, Poor appetite, Poor fluid intake, Blood in vomit, Black stools, Rectal bleeding, Last bowel movement, Fecal incontinence, Other Genitourinary: denies: No symptoms reported, See HPI, Burning, Dysuria, Dischar ge, Frequency, Flank pain, Hematuria, Incontinence, Pain, Urgency, Retention, Other Female Genitourinary: Heavy/abnormal periods, Vaginal bleeding. denies: No symptoms reported, See HPI, Last menstrual period, , Post menopausal, Irregular period, Vaginal discharge, Vaginal odor, Painful intercourse, Other -: Yes All other systems reviewed and negative <NAOMIE SORIA - Last Filed: 06/10/19 05:17> Physical Exam <NAOMIE SORIA - Last Filed: 06/10/19 05:17> - Vital signs Notes: PHYSICAL EXAMINATION: GENERAL: Well-appearing, well-nourished and in no acute distress. HEAD: Atraumatic, normocephalic. EYES: Pupils equal round and reactive to light, extraocular movements intact, sclera anicteric, conjunctiva are normal. ENT: nares patent, oropharynx clear without exudates. Moist mucous membranes. NECK: Normal range of motion, supple without lymphadenopathy LUNGS: Breath sounds clear to auscultation bilaterally and equal. No wheezes rales or rhonchi. HEART: Regular rate and rhythm without murmurs ABDOMEN: Pain in the right upper quadrant palpation in epigastrium sounds all quadrants EXTREMITIES: Normal range of motion, no pitting or edema. No cyanosis. NEUROLOGICAL: No focal neurological deficits. Moves all extremities spontaneously and on command. PSYCH: Normal mood, normal affect. SKIN: Warm, Dry, normal turgor, no rashes or lesions noted. (NAOMIE SORIA) Course - Laboratory Result Diagrams: 06/10/19 05:00 06/10/19 05:00 - Transfer of Care Care transferred to following provider: VANESSA at 5:30 AM labs pending <NAOMIE SORIA - Last Filed: 06/10/19 05:17> - Laboratory Result Diagrams: 06/10/19 05:00 06/10/19 05:00 <MEL MENDEZ - Last Filed: 06/10/19 07:51> - Laboratory Laboratory results interpreted by me: 06/10/19 06/10/19 06/10/19 05:00 05:00 05:00 [place] % (Auto) 13.2 H Total Protein 8.6 H Albumin 5.1 H Urine Blood LARGE H Ur Leukocyte Esterase SMALL H - Transfer of Care Notes: 06/10/19 05:17 Please note patient will be checked out to Dr. Mendez at 5:30 AM pending labs and he will make appropriate intervention (NAOMIE SORIA) Discharge <NAOMIE SORIA - Last Filed: 06/10/19 05:17> <MEL MENDEZ - Last Filed: 06/10/19 07:51> - Discharge Clinical Impression: Painful menstrual periods Condition: Stable Disposition: HOME, SELF-CARE Additional Instructions: Dysmenorrhea Your pain is dysmenorrhea -- severe pain during periods. It can be caused by uterine cramping with normal periods, or by conditions such as endometriosis (growths of uterine lining tissue outside the uterus). Your physician has found no life-threatening cause for your pain. You will receive treatment to relieve symptoms. Often antiinflammatory medication (such as ibuprofen) can help with dysmenorrhea if taken soon enough. It's best started at the first sign of a period. More severe dysmenorrhea, such as that caused by endometriosis, may require narcotic pain medication. control pills may help for recurrent dysmenorrhea if symptoms don't respond to other treatments. Regular exercise, maintaining the proper body weight, and "eating healthy" make dysmenorrhea less severe. Return for further evaluation if new symptoms develop, or if pain worsens or spreads, or if vaginal bleeding increases significantly. Take medications prescribed for your menstrual cramps. Follow-up with your [facility] doctor in [place], or with [facility] here locally this week if your heavy periods and cramping does not improve. RETURN TO THE EMERGENCY ROOM IF ANY NEW OR WORSENING SYMPTOMS. Prescriptions: Naproxen [Naprosyn 250 mg Tablet] 2 tab PO BID PRN #20 tablet PRN Reason: For Pain Referrals: MIKO MENDEZ MD [Primary Care Provider] - Follow up as needed
[2019-06-10 05:17] LABS: ABSOLUTE EOSINOPHILS # (AUTO) 0.2 10^3/uL (0.0-0.6); ABSOLUTE LYMPHOCYTES (AUTO) 1.9 10^3/uL (0.5-4.7); ABSOLUTE MONOCYTES (AUTO) 0.8 10^3/uL (0.1-1.4); ABSOLUTE NEUT (AUTO) 3.1 10^3/uL (1.7-8.2); BASOPHILS % (AUTO) 0.8 % (0-2); HEMOGLOBIN 12.3 g/dL (12.0-15.5); LYMPHOCYTES % (AUTO) 30.9 % (13-45); MEAN CORPUSCULAR HEMOGLOBIN 28.5 pg (27.0-33.4); MEAN CORPUSCULAR HGB CONC 33.2 g/dL (32.0-36.0); MEAN CORPUSCULAR VOLUME 86 fl (80-97); MONOCYTES % (AUTO) 13.2 % (3-13); PLATELET COUNT 180 10^3/uL (150-450); RED BLOOD COUNT 4.32 10^6/uL (3.72-5.28); RED CELL DISTRIBUTION WIDTH 13.5 % (11.5-14.0); SEGMENTED NEUTROPHILS % (AUTO) 51.1 % (42-78); TOTAL CELLS COUNTED % (AUTO) 100 %; WHITE BLOOD COUNT 6.1 10^3/uL (4.0-10.5)
[2019-06-10 05:37] LABS: ALBUMIN 5.1 g/dL (3.5-5.0); ALKALINE PHOSPHATASE 81 U/L (38-126); ANION GAP 14 (5-19); ASPARTATE AMINO TRANSFERASE 30 U/L (14-36); BILIRUBIN,DIRECT 0.2 mg/dL (0.0-0.4); BILIRUBIN,TOTAL 1.1 mg/dL (0.2-1.3); BLOOD UREA NITROGEN 11 mg/dL (7-20); CALCIUM 10.2 mg/dL (8.4-10.2); CARBON DIOXIDE 22 mmol/L (22-30); CHLORIDE 106 mmol/L (98-107); GLUCOSE 94 mg/dL (75-110); POTASSIUM 3.7 mmol/L (3.6-5.0); TOTAL PROTEIN 8.6 g/dL (6.3-8.2)
[2019-06-10 06:15] LABS: APPEARANCE,URINE CLEAR; BILIRUBIN,URINE NEGATIVE (NEGATIVE); COLOR,URINE YELLOW; GLUCOSE, URINE NEGATIVE (NEGATIVE); KETONES,URINE NEGATIVE (NEGATIVE); LEUKOCYTE ESTERASE,URINE SMALL (NEGATIVE); NITRITE,URINE NEGATIVE (NEGATIVE); PROTEIN,URINE NEGATIVE (NEGATIVE); URINE SPECIFIC GRAVITY 1.008; UROBILINOGEN,URINE NEGATIVE mg/dL (<2.0)
--- NOTE | 2019-06-10 06:19 | ER Document Report ---
Doctor's Note Notes: 06/10/19 06:19 33-year-old female patient complains of heavy vaginal bleeding with abdominal pain and cramps. Patient's pain she tested negative, patient's hemoglobin level is actually a little higher than her baseline. The urine does not suggest an infection. The white blood cell count does not suggest an infection. She did have a negative gallbladder ultrasound in February 2018 for right upper quadrant abdominal pain. 06/10/19 07:18 A right upper quadrant/gallbladder ultrasound was done and is unremarkable. Given all the findings noted above, patient will be discharged home. 06/10/19 07:43 I reviewed the findings with patient. She wants to know what can she do about her heavy periods and severe cramping pain. She states that Motrin makes her blood pressure go up and her heart rate go up. She does like the Percocet she received earlier. When I told her she needed to follow-up with [facility], she stated her [facility] doctor was in [place]. She does have a long history of pain medication seeking in this emergency room. She is currently receiving multiple controlled substances from her psychiatric providers. We will put her on naproxen for the menstrual cramping.
--- NOTE | 2019-06-10 07:26 | RADIOLOGY REPORT (SQ) ---
Ultrasound right upper quadrant on 06/10/2019 at 6:43 AM CLINICAL INDICATION: Right upper quadrant pain COMPARISON: CT chest and upper abdomen from 01/06/2019 FINDINGS: Multiple sonographic images are obtained throughout the right upper quadrant, both transverse and sagittal images are obtained. Visualized pancreas is unremarkable. Visualized aorta is unremarkable. Visualized liver is homogeneous without focal lesion or evidence of intrahepatic biliary ductal dilatation. Portal vein is patent and with a normal directional flow. Common duct measures 2 mm which is within normal limits mitigating against obstruction of the biliary tree. Right kidney shows no hydronephrosis. There are no gallstones, gallbladder wall thickening or pericholecystic fluid. No free fluid is noted in the right upper quadrant. IMPRESSION: Unremarkable exam.
[2019-06-10] MEDS ORDERED: NAPROXEN 375 MG TABLET PO ONE (07:49)
[2019-06-10 08:39] VITALS: BP 136/89
== END 2019-06-10 08:39 | disposition home or self-care (01) ==
LOC: ER 04:17
DX: N94.6 Dysmenorrhea, unspecified (principal); I10 Essential (primary) hypertension; Z88.6 Allergy status to analgesic agent
CPT/HCPCS: 99284; 36415; 83690; 84703; 85025; 81025; 80053; 81001; 76705; J3490

== ENCOUNTER 2019-06-24 14:49 | Emergency (ER) | payer MEDICAID ==
--- NOTE | 2019-06-24 15:07 | ER Document Report ---
ED Medical Screen (RME) - General Chief Complaint: Anxiety Stated Complaint: ANXIETY Time Seen by Provider: 06/24/19 15:04 Primary Care Provider: MIKO MENDEZ MD [Primary Care Provider] - Follow up as needed Mode of Arrival: Ambulatory Information source: Patient Notes: 33-year-old female presented to ED for complaint of racing thoughts. She states she just got discharged from [facility] for suicidal ideation mental health problems. She states she has had some racing thought and she does not want to get to where she is thinking of suicide. She does have an 8-week-old child at home. She states they diagnosed with depression. She states she is on Wellbutrin, Seroquel, Ambien, Adderall, amlodipine, hydrochlorothiazide, Colace, 2 multivitamins and promethazine. She has an appointment with her mental health therapist and her psychiatrist tomorrow. States she needs a Haldol shot or increase her Wellbutrin or something to help her toe she can get to see her doctor tomorrow I have greeted and performed a rapid initial assessment of this patient. A comprehensive ED assessment and evaluation of the patient, analysis of test results and completion of medical decision making process will be conducted by an additional ED providers. TRAVEL OUTSIDE OF THE [place] IN LAST 30 DAYS: No - Related Data Allergies/Adverse Reactions: ketorolac tromethamine [From Toradol] Allergy (Verified 05/24/19 23:52) meperidine HCl [From Demerol] Allergy (Verified 05/24/19 23:52) metoclopramide HCl [From Reglan] Allergy (Verified 05/24/19 23:52) morphine [Morphine] Allergy (Verified 05/24/19 23:52) nalbuphine [From Nubain] Allergy (Verified 05/24/19 23:52) Hives prochlorperazine [From Compazine] Allergy (Verified 05/24/19 23:52) Hives tramadol [Tramadol] Allergy (Verified 05/24/19 23:52) Hives ondansetron HCl [From Zofran] Adverse Reaction (Verified 05/24/19 23:52) VOMITING Past Medical History - Social History Family history: None - Past Medical History Cardiac Medical History: Reports: Hx Hypertension Neurological Medical History: Reports: Hx Migraine Renal/ Medical History: Denies: Hx Peritoneal Dialysis Musculoskeltal Medical History: Reports Hx Musculoskeletal Trauma Psychiatric Medical History: Reports: Hx Anxiety, Hx Attention Deficit Hyperac tivity Disorder, Hx Bipolar Disorder, Hx Depression, Hx Post Traumatic Stress Disorder Traumatic Medical History: Reports: Hx Fractures - nose Past Surgical History: Reports: Hx Abdominal Surgery - LAPROSCOPY, Hx Gynecologic Surgery - d&c, lap for endometriosis, Hx Nose Surgery - Reconstruction for fracture, Other - facial reconstruction - Immunizations Immunizations up to date: Yes Hx Diphtheria, Pertussis, Tetanus Vaccination: Yes - 2010 Physical Exam - Vital signs Vitals: Temp Pulse Resp BP Pulse Ox 98.3 F 115 H 20 145/95 H 100 06/24/19 14:49 06/24/19 14:49 06/24/19 14:49 06/24/19 14:49 06/24/19 14:49 Course - Vital Signs Vital signs: Temp Pulse Resp BP Pulse Ox 98.3 F 115 H 20 145/95 H 100 06/24/19 14:49 06/24/19 14:49 06/24/19 14:49 06/24/19 14:49 06/24/19 14:49 Doctor's Discharge - Discharge Referrals: MIKO MENDEZ MD [Primary Care Provider] - Follow up as needed
[2019-06-24] MEDS ORDERED: LABETALOL HCL 200 MG TABLET PO ONE (15:28)
--- NOTE | 2019-06-24 15:33 | ER Document Report ---
ED General - General Chief Complaint: Anxiety Stated Complaint: ANXIETY Time Seen by Provider: 06/24/19 15:04 Primary Care Provider: MIKO MENDEZ MD [ACTIVE STAFF] - Follow up as needed Mode of Arrival: Ambulatory Notes: 33-year-old female who presents for anxiety. States her thoughts have been racing. Patient was admitted to [facility] last week for SI and was discharged on Wellbutrin 150 mg 1 week ago. Patient is currently denying SI or HI. Is requesting that we increase her dose of Wellbutrin or give her a Haldol shot. Patient states she has an appointment with her therapist tomorrow at 1 PM and an appointment with her psychiatrist tomorrow at 2 PM tomorrow. Patient also states she has a headache. Patient is requesting Benadryl IV for her headache. Is also requesting 1 dose of her labetalol. Patient states she is currently on 100 mg twice daily. Patient denies chest pain, dyspnea, nausea, vomiting, fevers/chills TRAVEL OUTSIDE OF THE [place] IN LAST 30 DAYS: No - Related Data Allergies/Adverse Reactions: ketorolac tromethamine [From Toradol] Allergy (Verified 05/24/19 23:52) meperidine HCl [From Demerol] Allergy (Verified 05/24/19 23:52) metoclopramide HCl [From Reglan] Allergy (Verified 05/24/19 23:52) morphine [Morphine] Allergy (Verified 05/24/19 23:52) nalbuphine [From Nubain] Allergy (Verified 05/24/19 23:52) Hives prochlorperazine [From Compazine] Allergy (Verified 05/24/19 23:52) Hives tramadol [Tramadol] Allergy (Verified 05/24/19 23:52) Hives ondansetron HCl [From Zofran] Adverse Reaction (Verified 05/24/19 23:52) VOMITING Home Medications: Seroquel. Wellbutrin. Adderall. Amlodipine. Hydrochlorothiazide. Labetalol. Promethazine. Ambien. Colace. Multivitamins Past Medical History - General Information source: Patient - Social History Smoking Status: Current Some Day Smoker Family History: Reviewed & Not Pertinent, Arthritis, DM, Hyperlipidemia, Hypertension Patient has suicidal ideation: No Patient has homicidal ideation: No - Past Medical History Cardiac Medical History: Reports: Hx Hypertension Neurological Medical History: Reports: Hx Migraine Renal/ Medical History: Denies: Hx Peritoneal Dialysis Musculoskeletal Medical History: Reports Hx Musculoskeletal Trauma Psychiatric Medical History: Reports: Hx Anxiety, Hx Attention Deficit Hyperactivity Disorder, Hx Bipolar Disorder, Hx Depression, Hx Post Traumatic Stress Disorder Traumatic Medical History: Reports: Hx Fractures - nose Past Surgical History: Reports: Hx Abdominal Surgery - LAPROSCOPY, Hx Gynecologic Surgery - d&c, lap for endometriosis, Hx Nose Surgery - Reconstruction for fracture, Other - facial reconstruction - Immunizations Immunizations up to date: Yes Hx Diphtheria, Pertussis, Tetanus Vaccination: Yes - 2010 Review of Systems - Review of Systems Constitutional: denies: Chills, Fever EENT: denies: Blurred vision, Double vision Cardiovascular: denies: Chest pain, Heart racing Gastrointestinal: denies: Nausea, Vomiting Genitourinary: No symptoms reported Neurological/Psychological: denies: Homicidal ideation, Suicidal ideation -: Yes All other systems reviewed and negative Physical Exam - Vital signs Vitals: Temp Pulse Resp BP Pulse Ox 98.3 F 115 H 20 145/95 H 100 06/24/19 14:49 06/24/19 14:49 06/24/19 14:49 06/24/19 14:49 06/24/19 14:49 - Notes Notes: GENERAL: Well-appearing, well-nourished and in no acute distress. HEAD: Atraumatic, normocephalic. EYES: Extraocular movements intact, sclera anicteric, conjunctiva are normal. ENT: TMs normal, nares patent, oropharynx clear without exudates. Moist mucous membranes. NECK: Normal range of motion, supple without lymphadenopathy or JVD. LUNGS: Breath sounds clear to auscultation bilaterally and equal. No wheezes rales or rhonchi. HEART: Regular rate and rhythm without murmurs, rubs or gallops. ABDOMEN: Soft, nontender, normoactive bowel sounds. No guarding, no rebound. N o masses appreciated. EXTREMITIES: Normal range of motion, no pitting or edema. No clubbing or cyanosis. NEUROLOGICAL: Cranial nerves II through XII grossly intact. Normal speech, normal gait. PSYCH: Normal mood, normal affect. SKIN: Warm, Dry, normal turgor, no rashes or lesions noted. Course - Re-evaluation Re-evalutation: 06/24/19 33-year-old female presents for anxiety. Patient nontoxic in appearance. Lungs clear to auscultation bilaterally. Regular rate and rhythm. Pt is requesting her Wellbutrin be increased that she has been on for 1 week. Patient has an appointment with her psychiatrist tomorrow at 2 PM. Patient was discharged from [facility] for SI. Patient currently denies SI or HI. D iscussed with patient need to follow-up with psychiatrist increase in Wellbutrin. Voices understanding. Patient is also complaining of headache and is requesting Benadryl IV. Patient offered Tylenol or Motrin for headache however currently refusing. Patient has a history of migraine headaches. The patient informed that Benadryl is not indicated for headache. She voices understanding. Is also requesting 1 dose of her labetolol. Patient is also requesting UA to check for UTI however denies any symptoms. UA negative. Return precautions discussed. All questions/concerns addressed prior to discharge. - Vital Signs Vital signs: Temp Pulse Resp BP Pulse Ox 98.3 F 115 H 20 145/95 H 100 06/24/19 14:49 06/24/19 14:49 06/24/19 14:49 06/24/19 14:49 06/24/19 14:49 - Laboratory Laboratory results interpreted by me: 06/24/19 15:14 Ur Leukocyte Esterase TRACE H Discharge - Discharge Clinical Impression: Anxiety Condition: Stable Disposition: HOME, SELF-CARE Instructions: Anxiety ([facility]) Additional Instructions: Please keep your appointment with your therapist tomorrow and your psychiatrist tomorrow. Continue to take your medicines as prescribed. Your urine test was negative for a UTI. Return to ER for any worsening symptoms including suicidal ideation, homicidal ideation, or any other symptoms that are concerning to you. Referrals: MIKO MENDEZ MD [ACTIVE STAFF] - Follow up as needed
[2019-06-24 15:50] LABS: APPEARANCE,URINE SLIGHTLY-CLOUDY; BILIRUBIN,URINE NEGATIVE (NEGATIVE); COLOR,URINE YELLOW; GLUCOSE, URINE NEGATIVE (NEGATIVE); KETONES,URINE NEGATIVE (NEGATIVE); LEUKOCYTE ESTERASE,URINE TRACE (NEGATIVE); NITRITE,URINE NEGATIVE (NEGATIVE); PROTEIN,URINE NEGATIVE (NEGATIVE); URINE SPECIFIC GRAVITY 1.011; UROBILINOGEN,URINE NEGATIVE mg/dL (<2.0)
[2019-06-24 15:52] LABS: ADD MANUAL MICROSCOPIC YES
[2019-06-24 15:53] LABS: AMORPHOUS SEDIMENT,UR TRACE
[2019-06-24] MEDS ORDERED: HALOPERIDOL LACTATE INJ 5 MG/1 ML VIAL IM ONE (15:53)
[2019-06-24 16:25] VITALS: BP 131/89
== END 2019-06-24 16:22 | disposition home or self-care (01) ==
LOC: ER 14:49
DX: O99.345 Other mental disorders complicating the puerperium (principal); F53.0 Postpartum depression; R41.9 Unspecified symptoms and signs involving cognitive functions and awareness; F17.200 Nicotine dependence, unspecified, uncomplicated; I10 Essential (primary) hypertension; Z88.6 Allergy status to analgesic agent
CPT/HCPCS: 99283; 96372; 81025; 81001; J1630

== ENCOUNTER 2019-06-27 19:07 | Emergency (ER) | payer MEDICAID ==
[2019-06-27 19:48] LABS: APPEARANCE,URINE CLEAR; BILIRUBIN,URINE NEGATIVE (NEGATIVE); COLOR,URINE STRAW; GLUCOSE, URINE NEGATIVE (NEGATIVE); KETONES,URINE NEGATIVE (NEGATIVE); PROTEIN,URINE NEGATIVE (NEGATIVE); URINE SPECIFIC GRAVITY 1.005; UROBILINOGEN,URINE NEGATIVE mg/dL (<2.0)
[2019-06-27 20:41] LABS: ABSOLUTE EOSINOPHILS # (AUTO) 0.3 10^3/uL (0.0-0.6); ABSOLUTE LYMPHOCYTES (AUTO) 2.4 10^3/uL (0.5-4.7); ABSOLUTE MONOCYTES (AUTO) 0.9 10^3/uL (0.1-1.4); ABSOLUTE NEUT (AUTO) 3.3 10^3/uL (1.7-8.2); BASOPHILS % (AUTO) 0.7 % (0-2); EOSINOPHILS % (AUTO) 3.8 % (0-6); HEMATOCRIT 37.9 % (36.0-47.0); HEMOGLOBIN 12.6 g/dL (12.0-15.5); LYMPHOCYTES % (AUTO) 35.7 % (13-45); MEAN CORPUSCULAR HEMOGLOBIN 29.1 pg (27.0-33.4); MEAN CORPUSCULAR HGB CONC 33.2 g/dL (32.0-36.0); MEAN CORPUSCULAR VOLUME 88 fl (80-97); MONOCYTES % (AUTO) 12.4 % (3-13); PLATELET COUNT 222 10^3/uL (150-450); RED BLOOD COUNT 4.32 10^6/uL (3.72-5.28); RED CELL DISTRIBUTION WIDTH 13.6 % (11.5-14.0); SEGMENTED NEUTROPHILS % (AUTO) 47.4 % (42-78); TOTAL CELLS COUNTED % (AUTO) 100 %; WHITE BLOOD COUNT 6.9 10^3/uL (4.0-10.5)
[2019-06-27 20:45] LABS: PROTHROMBIN TIME 13.2 SEC (11.4-15.4)
[2019-06-27 21:03] LABS: ALBUMIN 5.2 g/dL (3.5-5.0); ALKALINE PHOSPHATASE 89 U/L (38-126); ANION GAP 15 (5-19); ASPARTATE AMINO TRANSFERASE 28 U/L (14-36); BILIRUBIN,DIRECT 0.2 mg/dL (0.0-0.4); BILIRUBIN,TOTAL 0.7 mg/dL (0.2-1.3); BLOOD UREA NITROGEN 12 mg/dL (7-20); CALCIUM 11.5 mg/dL (8.4-10.2); CARBON DIOXIDE 23 mmol/L (22-30); CHLORIDE 103 mmol/L (98-107); GLUCOSE 76 mg/dL (75-110); POTASSIUM 3.7 mmol/L (3.6-5.0); TOTAL PROTEIN 9.7 g/dL (6.3-8.2)
[2019-06-27 21:19] LABS: VENOUS BLOOD HCO3 25.7 mmol/L (20-32); VENOUS BLOOD PCO2 33.4 mmHg (35-63); VENOUS BLOOD PH 7.5 (7.30-7.42)
[2019-06-27] MEDS ORDERED: PROMETHAZINE HCL INJ 25 MG/1 ML VIAL IM ONE (22:48)
[2019-06-27] MEDS ORDERED: CLONAZEPAM 1 MG TABLET PO ONE (22:48)
--- NOTE | 2019-06-27 22:49 | ER Document Report ---
ED General - General Chief Complaint: Chest Pain Stated Complaint: CHEST PAIN Time Seen by Provider: 06/27/19 19:33 Primary Care Provider: GISSEL PEREZ FNP-C [Primary Care Provider] - Follow up as needed Notes: Patient is a 33-year-old female that comes to the emergency department for chief complaint of anxiety. She states that she feels like she cannot calm down. She states that she was released from [facility] [place] for depression just over a week ago, she was started on Wellbutrin, she had a Wellbutrin increase and a shot of Haldol here, she has a follow-up on Tuesday. She states that she is also taking daily Klonopin, 1 mg 3 times a day for anxiety but ran out. She states that she is worried about not having the Klonopin. She denies SI or HI. She states she has been taking this daily 3 times a day also and was not given enough to last her through Tuesday. She states she had discomfort in the right side of her chest earlier, she has been urinating frequently, she is generally frequently nauseated. She denies specific abdominal pain, fever, vaginal bleeding. She is 9 weeks , not breast-feeding. TRAVEL OUTSIDE OF THE [place] IN LAST 30 DAYS: No - Related Data Allergies/Adverse Reactions: ketorolac tromethamine [From Toradol] Allergy (Verified 05/24/19 23:52) meperidine HCl [From Demerol] Allergy (Verified 05/24/19 23:52) metoclopramide HCl [From Reglan] Allergy (Verified 05/24/19 23:52) morphine [Morphine] Allergy (Verified 05/24/19 23:52) nalbuphine [From Nubain] Allergy (Verified 05/24/19 23:52) Hives prochlorperazine [From Compazine] Allergy (Verified 05/24/19 23:52) Hives tramadol [Tramadol] Allergy (Verified 05/24/19 23:52) Hives ondansetron HCl [From Zofran] Adverse Reaction (Verified 05/24/19 23:52) VOMITING Past Medical History - General Information source: Patient - Social History Smoking Status: Never Smoker Frequency of alcohol use: None Drug Abuse: None Lives with: Family Family History: Reviewed & Not Pertinent, Arthritis, DM, Hyperlipidemia, Hypertension Patient has suicidal ideation: No Patient has homicidal ideation: No - Past Medical History Cardiac Medical History: Reports: Hx Hypertension Neurological Medical History: Reports: Hx Migraine Renal/ Medical History: Denies: Hx Peritoneal Dialysis Musculoskeletal Medical History: Reports Hx Musculoskeletal Trauma Psychiatric Medical History: Reports: Hx Anxiety, Hx Attention Deficit Hyperactivity Disorder, Hx Bipolar Disorder, Hx Depression, Hx Post Traumatic Stress Disorder Traumatic Medical History: Reports: Hx Fractures - nose Past Surgical History: Reports: Hx Abdominal Surgery - LAPROSCOPY, Hx Gynecologic Surgery - d&c, lap for endometriosis, Hx Nose Surgery - Reconstruction for fracture, Other - facial reconstruction - Immunizations Immunizations up to date: Yes Hx Diphtheria, Pertussis, Tetanus Vaccination: Yes - 2010 Review of Systems - Review of Systems Constitutional: No symptoms reported EENT: No symptoms reported Cardiovascular: See HPI Respiratory: See HPI Gastrointestinal: No symptoms reported Genitourinary: No symptoms reported Female Genitourinary: No symptoms reported Musculoskeletal: No symptoms reported Skin: No symptoms reported Hematologic/Lymphatic: No symptoms reported Neurological/Psychological: See HPI Physical Exam - Vital signs Vitals: Resp Pulse Ox 13 100 06/27/19 19:49 06/27/19 19:49 - Notes Notes: GENERAL: Alert, interacts well. No acute distress. HEAD: Normocephalic, atraumatic. EYES: Pupils equal, round, and reactive to light. Extraocular movements intact. ENT: Oral mucosa moist, tongue midline. Oropharynx unremarkable. Airway patent. Nares patent, no nasal septal hematoma, TM's intact. NECK: Full range of motion. Supple. Trachea midline. LUNGS: Clear to auscultation bilaterally, no wheezes, rales, or rhonchi. No respiratory distress. HEART: Regular rate and rhythm. No murmur ABDOMEN: Soft, non-tender. Non-distended. Bowel sounds present in all 4 quadrants. GENITOURINARY: Deferred EXTREMITIES: Moves all 4 extremities spontaneously. No edema, normal radial and dorsalis pedis pulses bilaterally. No cyanosis. BACK: no cervical, thoracic, lumbar midline tenderness. No saddle anesthesia, normal distal neurovascular exam. Moves all extremities in full range of motion. NEUROLOGICAL: Alert and oriented x3. Normal speech. Cranial nerves II through XII grossly intact. PSYCH: Normal affect, normal mood. Makes good eye contact. SKIN: Warm, dry, normal turgor. No rashes or lesions noted. Course - Re-evaluation Re-evalutation: Patient is denying chest pain on my evaluation. Chest x-ray, EKG, general work- up unremarkable. Patient without any other complaints on my evaluation except for concerns about her medications. She states she had chest pain on the right side earlier which resolved. Chest x-ray unremarkable. 06/28/19 00:03 Patient does has a prescription of Klonopin with her that is empty, it also does indicate that she would be out now and that she does take it 3 times a day regularly. She states that she is very concerned she will have withdrawals and this is consistent with her provide prescription. She states she is a follow-up on Tuesday (already set up), this is night, she will need it for , Tuesday, Tuesday. She will be prescribed a minimum amount of pills so that she can take this and not have benzodiazepine withdrawals. I did discuss with patient at length and she does deny SI or HI, her significant other did come to the bedside and she states she is very comfortable going home with him. She has no other complaints or concerns at this time. Stable at time of discharge. - Vital Signs Vital signs: Temp Pulse Resp BP Pulse Ox 17 138/86 H 100 06/28/19 00:23 06/28/19 00:23 06/28/19 00:23 - Laboratory Result Diagrams: 06/27/19 20:14 06/27/19 20:14 Laboratory results interpreted by me: 06/27/19 06/27/19 06/27/19 20:14 20:14 21:05 VBG pH 7.50 H VBG pCO2 33.4 L Lactic Acid 2.2 H Calcium 11.5 H Total Protein 9.7 H Albumin 5.2 H - EKG Interpretation by Me Additional EKG results interpreted by me: EKG shows sinus tachycardia at a rate of 105, QTC of 461, normal axis, no T wave inversions or ST segment changes in consecutive leads. Discharge - Discharge Clinical Impression: Anxiety, Stress reaction, Benzodiazepine dependence Chest pain Qualifiers: Chest pain type: unspecified Qualified Code(s): R07.9 - Chest pain, unspecified Condition: Stable Disposition: HOME, SELF-CARE Additional Instructions: Your work-up is reassuring. 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 Return for any concerning symptoms including difficulty breathing, vomiting, severe pain, fever, passing out, or any other concerning symptoms. Prescriptions: Clonazepam [Klonopin 1 mg Tablet] 1 mg PO BID #5 tablet Referrals: GISSEL PEREZ FNP-C [Primary Care Provider] - Follow up as needed
--- NOTE | 2019-06-27 23:22 | RADIOLOGY REPORT (SQ) ---
EXAM DESCRIPTION: XR CHEST 1 VIEW COMPLETED DATE/TME: 06/27/2019 22:47 CLINICAL HISTORY: 33 years, Female, chest pain COMPARISON: Prior study from 12/26/2018 NUMBER OF VIEWS: One TECHNIQUE: Single frontal view of the chest was obtained LIMITATIONS: None. FINDINGS: Cardiac and mediastinal contours are normal in appearance. Lungs are clear. No pleural effusion or pneumothorax. IMPRESSION: No acute disease. copyright 2010 [employer]- All Rights Reserved
[2019-06-28 00:29] VITALS: BP 138/86
--- NOTE | 2019-06-28 22:41 | EKG REPORT ---
SEVERITY:- OTHERWISE NORMAL ECG - SINUS TACHYCARDIA : Confirmed by: Lin Jorge 28-Jun-2019 22:41:40
== END 2019-06-28 00:29 | disposition home or self-care (01) ==
LOC: ER 19:07
DX: O99.345 Other mental disorders complicating the puerperium (principal); F53.0 Postpartum depression; F41.9 Anxiety disorder, unspecified; F13.20 Sedative, hypnotic or anxiolytic dependence, uncomplicated; F43.9 Reaction to severe stress, unspecified; R07.9 Chest pain, unspecified; I10 Essential (primary) hypertension; Z88.6 Allergy status to analgesic agent
CPT/HCPCS: 93005; 99284; 96372; 36415; 87040; 82962; 84703; 85025; 85610; 80053; 81001; 82803; 83605; 71045; 93010; J2550

== ENCOUNTER 2019-06-29 08:14 | Emergency (ER) | payer SELFPAY ==
[2019-06-29 08:28] VITALS: BP 127/74
[2019-06-29] MEDS ORDERED: CLONAZEPAM 1 MG TABLET PO ONE (10:15)
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
--- NOTE | 2019-06-29 12:56 | PSYCHOLOGICAL NOTE ---
Psych Note - Psych Note Date seen by psych provider: 06/29/19 Time seen by psych provider: 11:30 Psych Note: Reason for consult: Anxiety Patient is a 33 year old female who presents to ED via POV. Patient is requesting bridge prescription for her Klonopin. Patient states she has been prescribed a range of benzodiazepines for over 10 years. According to prescription history, patient should not need a refill. Patient states she made a mistake and has been taking her Klonopin 3x a day and not 2x as recently prescribed. Patients current medication list as follows: Wellbutrin 220MG, 1 time a day Seroquel 50MG, 3 times a day Clonazepam 1MG, (Rx history varies between 2-3 times per day), currently 3x per day Ambien 10MG, as needed Adderall, unknown Patient states she was sent impatient for withdrawals. Patient reports continued struggles with Depression and anxiety. Patient states she receives services through [facility]. Patient expressed concern with withdrawal symptoms, to include seizures if she does not receive refill. Patient stated 2018 hospitalization was due to withdrawal. Patient states she does not want to discontinue benzo use. Patient was advised of the potential lethal consequences of mixing uppers (Adderall) and downers (benzos). Patient is alert and oriented to person, place, time and circumstance. Mood is normal with congruent affect as evidenced by smiling, laughing and engagement with clinician. Patient denies suicidal and homicidal ideations. Delusions are absent and behavior is congruent with an intact reality based presentation (i.e. organized and linear thought processes). Patient denies auditory and visual hallucinations. There is no observed behavior that suggests patient is responding to internal stimuli. Eye contact is fair. Conversational speech is within normal rate, tone, and prosody. Intellectual ability appears to be within average range. Attention and concentration are fair. Insight, judgment, and impulse control are fair. DSM Diagnosis: Substance Use Disorder Per report, Depression Per report, Anxiety Medication recommendations per [facility] contracted psychiatrist Dr. Sung BEARD is as follows: DC Klonapin ADD Depakote 250MG, twice a day Impression/Plan: Patient is cleared from acute psychiatric services. Patient does not meet IVC criteria per [place] GS 122C. Patient denies suicidal and homicidal ideations. Patient denies auditory and visual hallucinations. Patients primary concern was medication refill. Patients appointment with [facility] was verified. [facility] is aware of patients possible misuse of prescription medication. Patient was encouraged to have a medication reconciliation completed with provider. It is recommended that patient seek detox services to address possible benzodiazepine abuse and misuse. Dr. Choudhury was consulted on the care and management of this patient; attending physician is in agreement with recommendations and disposition.
== END 2019-06-29 12:57 | disposition home or self-care (01) ==
LOC: ER 08:14
DX: F41.9 Anxiety disorder, unspecified (principal); F19.20 Other psychoactive substance dependence, uncomplicated; O99.345 Other mental disorders complicating the puerperium; F53.0 Postpartum depression; Z79.899 Other long term (current) drug therapy; F17.200 Nicotine dependence, unspecified, uncomplicated; I10 Essential (primary) hypertension
CPT/HCPCS: 99284

== ENCOUNTER 2019-07-13 18:59 | Emergency (ER) | payer SELFPAY ==
[2019-07-13] MEDS ORDERED: NORMAL SALINE 1000 ML 1,000 ML IV ONE ×2 (20:13→23:08)
--- NOTE | 2019-07-13 20:13 | ER Document Report ---
ED Medical Screen (RME) - General Chief Complaint: Vomiting Stated Complaint: VOMITING Time Seen by Provider: 07/13/19 20:07 Primary Care Provider: GISSEL PEREZ FNP-C [Primary Care Provider] - Follow up as needed Mode of Arrival: Ambulatory Information source: Patient Notes: 33-year-old female presented to ED for complaint of nausea vomiting and diarrhea times a week. She states she went to her doctor Tuesday and they switched some of her psych meds and she has been more sick than she was before. Patient is alert oriented respirations regular nonlabored speaking in full sentences. She states she did have Phenergan but she ran out of it. She states she cannot keep anything down at all she cannot keep a pill down to help with the nausea. She states they have changed her Wellbutrin until now she does not even want to smoke or drink anything does not use any kind of street drugs. I have greeted and performed a rapid initial assessment of this patient. A comprehensive ED assessment and evaluation of the patient, analysis of test results and completion of medical decision making process will be conducted by an additional ED providers. TRAVEL OUTSIDE OF THE [place] IN LAST 30 DAYS: No - Related Data Allergies/Adverse Reactions: ketorolac tromethamine [From Toradol] Allergy (Verified 05/24/19 23:52) meperidine HCl [From Demerol] Allergy (Verified 05/24/19 23:52) metoclopramide HCl [From Reglan] Allergy (Verified 05/24/19 23:52) morphine [Morphine] Allergy (Verified 05/24/19 23:52) nalbuphine [From Nubain] Allergy (Verified 05/24/19 23:52) Hives prochlorperazine [From Compazine] Allergy (Verified 05/24/19 23:52) Hives tramadol [Tramadol] Allergy (Verified 05/24/19 23:52) Hives ondansetron HCl [From Zofran] Adverse Reaction (Verified 05/24/19 23:52) VOMITING Past Medical History - Social History Family history: None - Past Medical History Cardiac Medical History: Reports: Hx Hypertension Neurological Medical History: Reports: Hx Migraine Renal/ Medical History: Denies: Hx Peritoneal Dialysis Musculoskeltal Medical History: Reports Hx Musculoskeletal Trauma Psychiatric Medical History: Reports: Hx Anxiety, Hx Attention Deficit Hyperactivity Disorder, Hx Bipolar Disorder, Hx Depression, Hx Post Traumatic Stress Disorder Traumatic Medical History: Reports: Hx Fractures - nose Past Surgical History: Reports: Hx Abdominal Surgery - LAPROSCOPY, Hx Gynecologic Surgery - d&c, lap for endometriosis, Hx Nose Surgery - Reconstruction for fracture, Other - facial reconstruction - Immunizations Immunizations up to date: Yes Hx Diphtheria, Pertussis, Tetanus Vaccination: Yes - 2010 Physical Exam - Vital signs Vitals: Temp Pulse Resp BP Pulse Ox 98.5 F 107 H 16 128/73 H 100 07/13/19 19:14 07/13/19 19:14 07/13/19 19:14 07/13/19 19:14 07/13/19 19:14 Course - Vital Signs Vital signs: Temp Pulse Resp BP Pulse Ox 98.5 F 107 H 16 128/73 H 100 07/13/19 19:14 07/13/19 19:14 07/13/19 19:14 07/13/19 19:14 07/13/19 19:14 Doctor's Discharge - Discharge Referrals: GISSEL PEREZ COTTON CLASSER-C [Primary Care Provider] - Follow up as needed
[2019-07-13] MEDS ORDERED: DIPHENHYDRAMINE HCL 50 MG/ML VIAL IM ONE (20:15)
[2019-07-13 21:14] LABS: APPEARANCE,URINE CLEAR; BILIRUBIN,URINE NEGATIVE (NEGATIVE); COLOR,URINE STRAW; GLUCOSE, URINE NEGATIVE (NEGATIVE); KETONES,URINE NEGATIVE (NEGATIVE); PROTEIN,URINE NEGATIVE (NEGATIVE); URINE SPECIFIC GRAVITY 1.005; UROBILINOGEN,URINE NEGATIVE mg/dL (<2.0)
--- NOTE | 2019-07-13 22:13 | RADIOLOGY REPORT (SQ) ---
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 COMPARISON: None. TECHNIQUE: Grayscale and color Doppler imaging of the abdomen was performed. FINDINGS: The liver has normal echotexture without focal lesion identified. The main portal vein has normal hepatopetal flow. No shadowing gallstones are seen. No pericholecystic fluid or gallbladder wall thickening. The common bile duct is normal caliber. The pancreas is unremarkable. The spleen is normal in size. No hydronephrosis or shadowing renal stones are identified. The right kidney measures 10.4 cm and the left kidney measures 12.2 cm in length. The visualized portions of the IVC and aorta are patent. IMPRESSION: Normal study.
[2019-07-13 22:43] LABS: ABSOLUTE EOSINOPHILS # (AUTO) 0.3 10^3/uL (0.0-0.6); ABSOLUTE LYMPHOCYTES (AUTO) 1.8 10^3/uL (0.5-4.7); ABSOLUTE MONOCYTES (AUTO) 0.5 10^3/uL (0.1-1.4); ABSOLUTE NEUT (AUTO) 2.3 10^3/uL (1.7-8.2); BASOPHILS % (AUTO) 0.3 % (0-2); EOSINOPHILS % (AUTO) 5.7 % (0-6); HEMATOCRIT 36.2 % (36.0-47.0); HEMOGLOBIN 12.1 g/dL (12.0-15.5); MEAN CORPUSCULAR HEMOGLOBIN 28.9 pg (27.0-33.4); MEAN CORPUSCULAR HGB CONC 33.4 g/dL (32.0-36.0); MEAN CORPUSCULAR VOLUME 86 fl (80-97); MONOCYTES % (AUTO) 10.8 % (3-13); PLATELET COUNT 202 10^3/uL (150-450); RED BLOOD COUNT 4.18 10^6/uL (3.72-5.28); RED CELL DISTRIBUTION WIDTH 13.6 % (11.5-14.0); SEGMENTED NEUTROPHILS % (AUTO) 46.2 % (42-78); TOTAL CELLS COUNTED % (AUTO) 100 %; WHITE BLOOD COUNT 4.9 10^3/uL (4.0-10.5)
[2019-07-13 22:45] LABS: ALBUMIN 5.2 g/dL (3.5-5.0); ALKALINE PHOSPHATASE 80 U/L (38-126); ANION GAP 15 (5-19); ASPARTATE AMINO TRANSFERASE 26 U/L (14-36); BILIRUBIN,DIRECT 0.1 mg/dL (0.0-0.4); BILIRUBIN,TOTAL 0.5 mg/dL (0.2-1.3); BLOOD UREA NITROGEN 11 mg/dL (7-20); CALCIUM 10.7 mg/dL (8.4-10.2); CARBON DIOXIDE 24 mmol/L (22-30); CHLORIDE 104 mmol/L (98-107); GLUCOSE 87 mg/dL (75-110); POTASSIUM 3.9 mmol/L (3.6-5.0); TOTAL PROTEIN 8.8 g/dL (6.3-8.2)
[2019-07-13] MEDS ORDERED: PROMETHAZINE HCL INJ 25 MG/1 ML VIAL IM ONE ×2 (23:00→23:07)
--- NOTE | 2019-07-13 23:23 | ER Document Report ---
ED GI/ - General Chief Complaint: Nausea/Vomiting Stated Complaint: VOMITING Time Seen by Provider: 07/13/19 20:07 Primary Care Provider: GISSEL PEREZ FNP-C [Primary Care Provider] - Follow up as needed Mode of Arrival: Ambulatory Information source: Patient Notes: This is a 33-year-old female presenting to the emergency department chief complaint of nausea, vomiting and diarrhea that began yesterday. Patient denies any abdominal pain or fevers. Patient reports last menstrual period was on 06/10/2019. She states that she has chronic nausea and vomiting due to her psychiatric medications. TRAVEL OUTSIDE OF THE [place] IN LAST 30 DAYS: No - Related Data Allergies/Adverse Reactions: ketorolac tromethamine [From Toradol] Allergy (Verified 05/24/19 23:52) meperidine HCl [From Demerol] Allergy (Verified 05/24/19 23:52) metoclopramide HCl [From Reglan] Allergy (Verified 05/24/19 23:52) morphine [Morphine] Allergy (Verified 05/24/19 23:52) nalbuphine [From Nubain] Allergy (Verified 05/24/19 23:52) Hives prochlorperazine [From Compazine] Allergy (Verified 05/24/19 23:52) Hives tramadol [Tramadol] Allergy (Verified 05/24/19 23:52) Hives ondansetron HCl [From Zofran] Adverse Reaction (Verified 05/24/19 23:52) VOMITING Past Medical History - General Information source: Patient - Social History Smoking Status: Current Every Day Smoker Frequency of alcohol use: None Drug Abuse: None Family History: Reviewed & Not Pertinent, Arthritis, DM, Hyperlipidemia, Hypertension Patient has suicidal ideation: No Patient has homicidal ideation: No - Past Medical History Cardiac Medical History: Reports: Hx Hypertension Neurological Medical History: Reports: Hx Migraine Renal/ Medical History: Denies: Hx Peritoneal Dialysis Musculoskeletal Medical History: Reports Hx Musculoskeletal Trauma Psychiatric Medical History: Reports: Hx Anxiety, Hx Attention Deficit Hyperactivity Disorder, Hx Bipolar Disorder, Hx Depression, Hx Post Traumatic Stress Disorder Traumatic Medical History: Reports: Hx Fractures - nose Past Surgical History: Reports: Hx Abdominal Surgery - LAPROSCOPY, Hx Gynecologic Surgery - d&c, lap for endometriosis, Hx Nose Surgery - Recon struction for fracture, Other - facial reconstruction - Immunizations Immunizations up to date: Yes Hx Diphtheria, Pertussis, Tetanus Vaccination: Yes - 2010 Review of Systems - Review of Systems Constitutional: No symptoms reported EENT: No symptoms reported Cardiovascular: No symptoms reported Respiratory: No symptoms reported Gastrointestinal: Nausea, Vomiting Genitourinary: No symptoms reported Female Genitourinary: No symptoms reported Musculoskeletal: No symptoms reported Skin: No symptoms reported Hematologic/Lymphatic: No symptoms reported Neurological/Psychological: No symptoms reported Physical Exam - Vital signs Vitals: Temp Pulse Resp BP Pulse Ox 98.5 F 107 H 16 128/73 H 100 07/13/19 19:14 07/13/19 19:14 07/13/19 19:14 07/13/19 19:14 07/13/19 19:14 - Notes Notes: PHYSICAL EXAMINATION: GENERAL: Well-appearing, well-nourished and in no acute distress. HEAD: Atraumatic, normocephalic. EYES: Pupils equal round and reactive to light, extraocular movements intact, conjunctiva are normal. ENT: Nares patent, oropharynx clear without exudates. Moist mucous membranes. NECK: Normal range of motion, supple without lymphadenopathy LUNGS: Breath sounds clear to auscultation bilaterally and equal. No wheezes rales or rhonchi. HEART: Regular rate and rhythm without murmurs ABDOMEN: Soft, nontender, nondistended abdomen. No guarding, no rebound. No masses appreciated. Female : deferred Musculoskeletal: Normal range of motion, no pitting or edema. No cyanosis. NEUROLOGICAL: Cranial nerves grossly intact. Normal speech, normal gait. Normal sensory, motor exams PSYCH: Normal mood, normal affect. SKIN: Warm, Dry, normal turgor, no rashes or lesions noted. Course - Re-evaluation Re-evalutation: hCG was positive today. Otherwise normal work-up. Abdomen soft and nontender, no indication for further work-up or imaging. Patient medicated with IM Phenergan here in the emergency department. She will follow-up to establish POLITICAL SCIENTIST care. She understands ED return precautions. The patient's emergency department workup and current diagnosis were explained to the patient and or family. Follow-up instructions were provided. Medications if prescribed were discussed. Instructions for when to return to the emergency department including specific worrisome symptoms were discussed with the patient and/or family. - Vital Signs Vital signs: Temp Pulse Resp BP Pulse Ox 98.7 F 91 18 135/79 H 100 07/13/19 23:48 07/13/19 23:48 07/13/19 23:48 07/13/19 23:48 07/13/19 23:48 - Laboratory Result Diagrams: 07/13/19 22:17 07/13/19 22:17 Laboratory results interpreted by me: 07/13/19 07/13/19 07/13/19 20:25 22:17 22:17 Calcium 10.7 H Total Protein 8.8 H Albumin 5.2 H Serum HCG, Qual POSITIVE H Leukocyte Esterase Rfl TRACE H Discharge - Discharge Clinical Impression: Nausea and vomiting during Condition: Stable Disposition: HOME, SELF-CARE Additional Instructions: Your were seen in the emergency department this evening for nausea and vomiting. Your test is positive. The rest of your work-up was unremarkable. Please follow-up with the health department to establish care. Please return to the emergency department for any new or worsening symptoms. Take the Phenergan as prescribed. Prescriptions: Promethazine HCl [Phenergan 25 mg Tablet] 1 - 2 tab PO Q6H PRN #15 tablet PRN Reason: Referrals: GISSEL PEREZ, BOROUGH COORDINATOR-C [Primary Care Provider] - Follow up as needed
[2019-07-13 23:50] VITALS: BP 135/79
== END 2019-07-13 23:50 | disposition home or self-care (01) ==
LOC: ER 18:59
DX: O21.9 Vomiting of pregnancy, unspecified (principal); O26.891 Other specified pregnancy related conditions, first trimester; R19.7 Diarrhea, unspecified; O99.331 Smoking (tobacco) complicating pregnancy, first trimester; F17.200 Nicotine dependence, unspecified, uncomplicated; O16.1 Unspecified maternal hypertension, first trimester; Z88.8 Allergy status to other drugs, medicaments and biological substances; Z88.5 Allergy status to narcotic agent; Z88.6 Allergy status to analgesic agent; Z79.899 Other long term (current) drug therapy; Z3A.01 Less than 8 weeks gestation of pregnancy
CPT/HCPCS: 99284; 96372; 96360; 36415; 87086; 84703; 85025; 87088; 80053; 81001; 87186; 76700; J1200; J2550; J7030

== ENCOUNTER 2019-07-14 17:23 | Emergency (ER) | payer SELFPAY ==
[2019-07-14] MEDS ORDERED: PROMETHAZINE HCL INJ 25 MG/1 ML VIAL IM ONE (17:31)
[2019-07-14] MEDS ORDERED: DIPHENHYDRAMINE HCL 50 MG/ML VIAL IM ONE (17:31)
[2019-07-14] MEDS ORDERED: NORMAL SALINE 1000 ML 1,000 ML IV ONE (17:33)
--- NOTE | 2019-07-14 17:34 | ER Document Report ---
ED Medical Screen (RME) - General Chief Complaint: Vomiting Stated Complaint: VOMITING Time Seen by Provider: 07/14/19 17:29 Primary Care Provider: GISSEL PEREZ FNP-C [Primary Care Provider] - Follow up as needed TRAVEL OUTSIDE OF THE [place] IN LAST 30 DAYS: No - HPI Notes: 07/14/19 17:33 Patient is a 33-year-old female with tested positive yesterday who continues to have nausea and vomiting. She does have some lower pelvic pain and cramping. No vaginal bleeding or odor/discharge. She is urinating normally. Patient is here fairly often for nausea vomiting and is very adamant about having her Benadryl/Phenergan. Denies fever. I have treated and performed a rapid initial assessment of this patient. A comprehensive ED assessment and evaluation of the patient, analysis of test results and completion of medical decision making process will be conducted by additional ED providers. PHYSICAL EXAMINATION: GENERAL: Well-appearing, well-nourished and in no acute distress. A&Ox4. Answers questions appropriately. - Related Data Allergies/Adverse Reactions: ketorolac tromethamine [From Toradol] Allergy (Verified 07/14/19 17:29) meperidine HCl [From Demerol] Allergy (Verified 07/14/19 17:29) metoclopramide HCl [From Reglan] Allergy (Verified 07/14/19 17:29) morphine [Morphine] Allergy (Verified 07/14/19 17:29) nalbuphine [From Nubain] Allergy (Verified 07/14/19 17:29) Hives prochlorperazine [From Compazine] Allergy (Verified 07/14/19 17:29) Hives tramadol [Tramadol] Allergy (Verified 07/14/19 17:29) Hives ondansetron HCl [From Zofran] Adverse Reaction (Verified 07/14/19 17:29) VOMITING Past Medical History - Social History Chew tobacco use (# tins/day): No Frequency of alcohol use: None Drug Abuse: None Family history: None - Past Medical History Cardiac Medical History: Reports: Hx Hypertension Neurological Medical History: Reports: Hx Migraine Renal/ Medical History: Denies: Hx Peritoneal Dialysis Musculoskeltal Medical History: Reports Hx Musculoskeletal Trauma Psychiatric Medical History: Reports: Hx Anxiety, Hx Attention Deficit Hyperactivity Disorder, Hx Bipolar Disorder, Hx Depression, Hx Post Traumatic Stress Disorder Traumatic Medical History: Reports: Hx Fractures - nose Past Surgical History: Reports: Hx Abdominal Surgery - LAPROSCOPY, Hx Gynecologic Surgery - d&c, lap for endometriosis, Hx Nose Surgery - Reconstruction for fracture, Other - facial reconstruction - Immunizations Immunizations up to date: Yes Hx Diphtheria, Pertussis, Tetanus Vaccination: Yes - 2010 Doctor's Discharge - Discharge Referrals: GISSEL PEREZ, HADOOP CONSULTANT-C [Primary Care Provider] - Follow up as needed
--- NOTE | 2019-07-14 17:49 | ER Document Report ---
ED General - General Chief Complaint: Vomiting Stated Complaint: VOMITING Time Seen by Provider: 07/14/19 17:29 Primary Care Provider: GISSEL PEREZ FNP-C [Primary Care Provider] - Follow up in 3-5 days Mode of Arrival: Ambulatory Information source: Patient Notes: This 33-year-old female presents emergency department with complaints of nausea vomiting and diarrhea. Reports she tested positive for yesterday. She reports she had her last child in March 2019. . She is not breast- feeding. She reports she had a miscarriage last year. Patient reports the same thing happened with the last continuous nausea vomiting. They sent her to [facility] because she is high risk. She reports she is unable to keep any foods down. She also complained of some lower pelvic pain and cramping. TRAVEL OUTSIDE OF THE [place] IN LAST 30 DAYS: No - HPI Onset: This morning Onset/Duration: Persistent Quality of pain: Cramping Associated symptoms: Diarrhea, Nausea, Vomiting Exacerbated by: Food Relieved by: Denies Similar symptoms previously: Yes Recently seen / treated by doctor: Yes - Related Data Allergies/Adverse Reactions: ketorolac tromethamine [From Toradol] Allergy (Verified 07/14/19 17:29) meperidine HCl [From Demerol] Allergy (Verified 07/14/19 17:29) metoclopramide HCl [From Reglan] Allergy (Verified 07/14/19 17:29) morphine [Morphine] Allergy (Verified 07/14/19 17:29) nalbuphine [From Nubain] Allergy (Verified 07/14/19 17:29) Hives prochlorperazine [From Compazine] Allergy (Verified 07/14/19 17:29) Hives tramadol [Tramadol] Allergy (Verified 07/14/19 17:29) Hives ondansetron HCl [From Zofran] Adverse Reaction (Verified 07/14/19 17:29) VOMITING Past Medical History - General Information source: Patient Last Menstrual Period: from March - Social History Smoking Status: Current Every Day Smoker Chew tobacco use (# tins/day): No Frequency of alcohol use: None Drug Abuse: None Lives with: Family Family History: Reviewed & Not Pertinent, Arthritis, DM, Hyperlipidemia, Hypertension Patient has suicidal ideation: No Patient has homicidal ideation: No - Past Medical History Cardiac Medical History: Reports: Hx Hypertension Neurological Medical History: Reports: Hx Migraine Renal/ Medical History: Denies: Hx Peritoneal Dialysis Musculoskeletal Medical History: Reports Hx Musculoskeletal Trauma Psychiatric Medical History: Reports: Hx Anxiety, Hx Attention Deficit Hyperactivity Disorder, Hx Bipolar Disorder, Hx Depression, Hx Post Traumatic Stress Disorder Traumatic Medical History: Reports: Hx Fractures - nose Past Surgical History: Reports: Hx Abdominal Surgery - LAPROSCOPY, Hx Gynecologic Surgery - d&c, lap for endometriosis, Hx Nose Surgery - Reconstruction for fracture, Other - facial reconstruction - Immunizations Immunizations up to date: Yes Hx Diphtheria, Pertussis, Tetanus Vaccination: Yes - 2010 Review of Systems - Review of Systems Notes: Review HPI for review of systems., All other systems negative Physical Exam - Vital signs Vitals: Temp Pulse BP Pulse Ox 98.2 F 95 145/90 H 100 07/14/19 17:28 07/14/19 17:28 07/14/19 17:28 07/14/19 17:28 - General General appearance: Appears well, Alert In distress: None - HEENT Head: Normocephalic, Atraumatic Eyes: Normal Conjunctiva: Normal Mucous membranes: Moist Pharynx: Normal. No: Erythema Neck: Normal, Supple. No: Lymphadenopathy - Respiratory Respiratory status: No respiratory distress Chest status: Nontender Breath sounds: Normal Chest palpation: Normal - Cardiovascular Rhythm: Regular Heart sounds: Normal auscultation Murmur: No - Abdominal Inspection: Normal, Gravid female Distension: No distension Bowel sounds: Normal Tenderness: Other - Complains of epigastric pain - Back Back: Normal - Extremities General upper extremity: Normal ROM General lower extremity: Normal ROM - Neurological Neuro grossly intact: Yes Cognition: Normal Orientation: AAOx4 [place] Coma Scale Eye Opening: Spontaneous [place] Coma Scale Verbal: Oriented [place] Coma Scale Motor: Obeys Commands [place] Coma Scale Total: 15 Speech: Normal - Psychological Associated symptoms: Normal affect, Normal mood - Skin Skin Temperature: Warm Skin Moisture: Dry Skin Color: Normal Course - Re-evaluation Re-evalutation: 07/14/19 20:11 33-year-old female presents with complaints of nausea vomiting since she is found that she is . Also reports some diarrhea this morning. Reports abdominal cramping no pain with void denies vaginal discharge denies vaginal bleeding. Patient is from March. . Patient was treated with Benadryl Phenergan IM. She was given a liter of fluids. She is requesting some Tylenol and repeat Phenergan and Benadryl before she discharged home. She reports she has Phenergan tablets at home. I suggested Phenergan suppository. Prescription was ordered. Patient was also instructed to follow-up with her CURRICULUM AND ASSESSMENT COORDINATOR Tuesday. She also is going to follow-up with her mental health provider Tuesday. Patient nontoxic looking. No further vomiting since arrival. She was instructed on the results of the ultrasound 5-week gestational sac no activity noted yet. She reports she is aware that activity should not be seen until 6 weeks. She was instructed on the importance of follow-up as soon as possible with her CURRICULUM AND ASSESSMENT COORDINATOR for repeat ultrasound and labs. Patient verbalized understanding to all instructions reports she feels better discharged home. 07/14/19 18:38 07/14/19 18:38 MCV 87 fl (80-97) 07/14/19 18:38 MCH 29.7 pg (27.0-33.4) 07/14/19 18:38 MCHC 34.1 g/dL (32.0-36.0) 07/14/19 18:38 RDW 13.6 % (11.5-14.0) 07/14/19 18:38 Seg Neutrophils % 47.9 % (42-78) 07/14/19 18:38 Chloride 104 mmol/L (98-107) 07/14/19 18:38 Carbon Dioxide 26 mmol/L (22-30) 07/14/19 18:38 Anion Gap 11 (5-19) 07/14/19 18:38 Est GFR ( Amer) > 60 (>60) 07/14/19 18:38 Glucose 83 mg/dL (75-110) 07/14/19 18:38 Calcium 10.2 mg/dL (8.4-10.2) 07/14/19 18:38 Total Bilirubin 0.6 mg/dL (0.2-1.3) 07/14/19 18:38 AST 19 U/L (14-36) 07/14/19 18:38 Alkaline Phosphatase 67 U/L (38-126) 07/14/19 18:38 Total Protein 7.8 g/dL (6.3-8.2) 07/14/19 18:38 Albumin 4.6 g/dL (3.5-5.0) 07/14/19 18:38 Urine Color COLORLESS 07/14/19 17:50 Urine Appearance CLEAR 07/14/19 17:50 Urine pH 7.0 (5.0-9.0) 07/14/19 17:50 Ur Specific [place] 1.002 07/14/19 17:50 Urine Protein NEGATIVE mg/dL (NEGATIVE) 07/14/19 17:50 Urine Glucose (UA) NEGATIVE mg/dL (NEGATIVE) 07/14/19 17:50 Urine Ketones NEGATIVE mg/dL (NEGATIVE) 07/14/19 17:50 Urine Blood NEGATIVE (NEGATIVE) 07/14/19 17:50 Urine RBC (Auto) 2 /HPF 07/14/19 17:50 Obstetrics Ultrasound 07/14/19 17:32 IMPRESSION: There is a possible 7 mm gestational sac in the endometrium which would correlate with a 5 week 2 day gestation. Trimester of : First trimester - 0 to 13 weeks. - Vital Signs Vital signs: Temp Pulse Resp BP Pulse Ox 98.9 F 81 14 114/75 100 07/14/19 20:48 07/14/19 20:48 07/14/19 20:48 07/14/19 20:48 07/14/19 20:48 07/14/19 18:38 07/14/19 18:38 MCV 87 fl (80-97) 07/14/19 18:38 MCH 29.7 pg (27.0-33.4) 07/14/19 18:38 MCHC 34.1 g/dL (32.0-36.0) 07/14/19 18:38 RDW 13.6 % (11.5-14.0) 07/14/19 18:38 Seg Neutrophils % 47.9 % (42-78) 07/14/19 18:38 Chloride 104 mmol/L (98-107) 07/14/19 18:38 Carbon Dioxide 26 mmol/L (22-30) 07/14/19 18:38 Anion Gap 11 (5-19) 07/14/19 18:38 Est GFR ( Amer) > 60 (>60) 07/14/19 18:38 Glucose 83 mg/dL (75-110) 07/14/19 18:38 Calcium 10.2 mg/dL (8.4-10.2) 07/14/19 18:38 Total Bilirubin 0.6 mg/dL (0.2-1.3) 07/14/19 18:38 AST 19 U/L (14-36) 07/14/19 18:38 Alkaline Phosphatase 67 U/L (38-126) 07/14/19 18:38 Total Protein 7.8 g/dL (6.3-8.2) 07/14/19 18:38 Albumin 4.6 g/dL (3.5-5.0) 07/14/19 18:38 Urine Color COLORLESS 07/14/19 17:50 Urine Appearance CLEAR 07/14/19 17:50 Urine pH 7.0 (5.0-9.0) 07/14/19 17:50 Ur Specific [place] 1.002 07/14/19 17:50 Urine Protein NEGATIVE mg/dL (NEGATIVE) 07/14/19 17:50 Urine Glucose (UA) NEGATIVE mg/dL (NEGATIVE) 07/14/19 17:50 Urine Ketones NEGATIVE mg/dL (NEGATIVE) 07/14/19 17:50 Urine Blood NEGATIVE (NEGATIVE) 07/14/19 17:50 Urine RBC (Auto) 2 /HPF 07/14/19 17:50 Obstetrics Ultrasound 07/14/19 17:32 IMPRESSION: There is a possible 7 mm gestational sac in the endometrium which would correlate with a 5 week 2 day gestation. Trimester of : First trimester - 0 to 13 weeks. - Laboratory Result Diagrams: 07/14/19 18:38 07/14/19 18:38 Laboratory results interpreted by me: 07/14/19 07/14/19 18:38 18:38 Hgb 11.1 L Hct 32.4 L Beta HCG, Quant 3821.50 H - Diagnostic Test Radiology reviewed: Image reviewed, Reports reviewed Discharge - Discharge Clinical Impression: Nausea & vomiting Condition: Stable Disposition: HOME, SELF-CARE Instructions: Antinausea Medication ([facility]), Intravenous (IV) Fluids ([facility]), [facility] [place], ([facility]), Vomiting ([facility]) Additional Instructions: *You have been evaluated for nausea/vomiting, *Your ultrasound showed a gestational sac because you are barely 5 weeks . You need to follow-up for repeat ultrasound with your SOCIAL STUDIES TEACHER *Take medication as prescribed Avoid heavy meals, clear liquids advance as tolerated *Ensure adequate fluid intake as discussed to prevent dehydration *Follow up with a primary care provider or your SOCIAL STUDIES TEACHER within 1 week *Return to ED for worsening condition, changes, needs Prescriptions: Promethazine HCl [Phenergan 25 mg Supp.rect] 1 supp WA Q6H #12 supp.rect Referrals: GISSEL PEREZ, CATRACHITO [Primary Care Provider] - Follow up in 3-5 days
[2019-07-14 18:10] LABS: APPEARANCE,URINE CLEAR; BILIRUBIN,URINE NEGATIVE (NEGATIVE); COLOR,URINE COLORLESS; GLUCOSE, URINE NEGATIVE (NEGATIVE); KETONES,URINE NEGATIVE (NEGATIVE); PROTEIN,URINE NEGATIVE (NEGATIVE); URINE SPECIFIC GRAVITY 1.002; UROBILINOGEN,URINE NEGATIVE mg/dL (<2.0)
[2019-07-14 18:19] LABS: URINE AMPHETAMINES SCREEN NEGATIVE; URINE BARBITURATES SCREEN NEGATIVE; URINE BENZODIAZEPINES SCREEN NEGATIVE; URINE COCAINE SCREEN NEGATIVE; URINE MARIJUANA (THC) SCREEN NEGATIVE; URINE METHADONE SCREEN NEGATIVE; URINE PHENCYCLIDINE SCREEN NEGATIVE
[2019-07-14 18:57] LABS: ABSOLUTE EOSINOPHILS # (AUTO) 0.2 10^3/uL (0.0-0.6); ABSOLUTE LYMPHOCYTES (AUTO) 1.6 10^3/uL (0.5-4.7); ABSOLUTE MONOCYTES (AUTO) 0.5 10^3/uL (0.1-1.4); ABSOLUTE NEUT (AUTO) 2.2 10^3/uL (1.7-8.2); BASOPHILS % (AUTO) 0.6 % (0-2); EOSINOPHILS % (AUTO) 4.9 % (0-6); HEMATOCRIT 32.4 % (36.0-47.0); HEMOGLOBIN 11.1 g/dL (12.0-15.5); LYMPHOCYTES % (AUTO) 34.6 % (13-45); MEAN CORPUSCULAR HEMOGLOBIN 29.7 pg (27.0-33.4); MEAN CORPUSCULAR HGB CONC 34.1 g/dL (32.0-36.0); MEAN CORPUSCULAR VOLUME 87 fl (80-97); PLATELET COUNT 179 10^3/uL (150-450); RED BLOOD COUNT 3.73 10^6/uL (3.72-5.28); RED CELL DISTRIBUTION WIDTH 13.6 % (11.5-14.0); SEGMENTED NEUTROPHILS % (AUTO) 47.9 % (42-78); TOTAL CELLS COUNTED % (AUTO) 100 %; WHITE BLOOD COUNT 4.5 10^3/uL (4.0-10.5)
[2019-07-14 19:14] LABS: ALBUMIN 4.6 g/dL (3.5-5.0); ALKALINE PHOSPHATASE 67 U/L (38-126); ANION GAP 11 (5-19); ASPARTATE AMINO TRANSFERASE 19 U/L (14-36); BILIRUBIN,DIRECT 0.1 mg/dL (0.0-0.4); BILIRUBIN,TOTAL 0.6 mg/dL (0.2-1.3); BLOOD UREA NITROGEN 11 mg/dL (7-20); CALCIUM 10.2 mg/dL (8.4-10.2); CARBON DIOXIDE 26 mmol/L (22-30); CHLORIDE 104 mmol/L (98-107); GLUCOSE 83 mg/dL (75-110); POTASSIUM 4.2 mmol/L (3.6-5.0); TOTAL PROTEIN 7.8 g/dL (6.3-8.2)
--- NOTE | 2019-07-14 19:29 | RADIOLOGY REPORT (SQ) ---
EXAM DESCRIPTION: U/S OB TRANSVAGINAL W/O DOP COMPLETED DATE/TIME: 07/14/2019 7:11 pm REASON FOR STUDY: preg, unknown exact gestation, pelv pain COMPARISON: None. TECHNIQUE: Limited transvaginal grayscale ultrasound for evaluation of specific requested obstetrica l parameters. LIMITATIONS: None. FINDINGS: CERVICAL LENGTH: 3.2 cm Closed. There is a possible 7 mm gestational sac in the endometrium which would correlate with a 5 week 2 day gestation. Ovaries are normal size with small cysts. No free fluid. OTHER: No other significant findings. IMPRESSION: There is a possible 7 mm gestational sac in the endometrium which would correlate with a 5 week 2 day gestation. Trimester of : First trimester - 0 to 13 weeks. COMMENT: Follow-up recommended. TECHNICAL DOCUMENTATION: JOB ID: [id number] [id number] 2010 [employer]- All Rights Reserved Reading location - IP/workstation name: [email or web address]
[2019-07-14] MEDS ORDERED: DIPHENHYDRAMINE HCL 50 MG/ML VIAL IV ONE (20:00)
[2019-07-14] MEDS ORDERED: PROMETHAZINE HCL INJ 50 MG/1 ML VIAL IM PRN (20:00)
[2019-07-14] MEDS ORDERED: ACETAMINOPHEN 325 MG TABLET PO ONE (20:10)
[2019-07-14 21:39] VITALS: BP 114/75
== END 2019-07-14 21:10 | disposition home or self-care (01) ==
LOC: ER 17:23
DX: O21.9 Vomiting of pregnancy, unspecified (principal); R19.7 Diarrhea, unspecified; Z3A.01 Less than 8 weeks gestation of pregnancy
CPT/HCPCS: 36415; 84702; 85025; 80053; 81001; 80307; 76817; J1200; J2550; J7030; 96361; 96372; 96374; 99284

== ENCOUNTER 2019-07-22 22:08 | Emergency (ER) | payer SELFPAY ==
[2019-07-22 22:22] VITALS: BP 110/67
[2019-07-22] MEDS ORDERED: NORMAL SALINE 1000 ML 1,000 ML IV ONE (23:46)
[2019-07-23] MEDS ORDERED: PROMETHAZINE HCL INJ 50 MG/1 ML VIAL IM ONE (00:13)
[2019-07-23] MEDS ORDERED: DIPHENHYDRAMINE HCL 50 MG/ML VIAL IV ONE (00:14)
[2019-07-23] MEDS ORDERED: PROMETHAZINE HCL INJ 50 MG/1 ML VIAL ONE (00:24)
[2019-07-23 00:25] LABS: APPEARANCE,URINE SLIGHTLY-CLOUDY; BILIRUBIN,URINE NEGATIVE (NEGATIVE); COLOR,URINE YELLOW; GLUCOSE, URINE NEGATIVE (NEGATIVE); KETONES,URINE NEGATIVE (NEGATIVE); LEUKOCYTE ESTERASE,URINE MODERATE (NEGATIVE); NITRITE,URINE NEGATIVE (NEGATIVE); PROTEIN,URINE NEGATIVE (NEGATIVE); URINE SPECIFIC GRAVITY 1.011; UROBILINOGEN,URINE NEGATIVE mg/dL (<2.0)
--- NOTE | 2019-07-23 00:44 | ER Document Report ---
HPI - HPI Time Seen by Provider: 07/22/19 23:50 Pain Level: 2 Context: 33-year-old G8, P6 female presents to the emergency department with chief complaint of nausea. Patient has been seen here several times in the last month for the same issue. Patient recently had a and March 2019. Patient denies any vomiting at this time. Patient does also complain of a headache that is typical of her chronic headaches centered behind the right eye that radiates to her right forehead. States it is not the worst headache of her life or thunderclap. Denies diarrhea, denies abnormal vaginal discharge or vaginal bleeding, denies abdominal pain, does complain of urinary urgency with no dysuria or frequency. No other complaints - GASTROINTESTINAL Gastrointestinal: REPORTS: Abdominal Pain - REPRODUCTIVE LMP: 05/2019 Reproductive: REPORTS: : Past Medical History - Social History Smoking Status: Current Every Day Smoker Family History: Reviewed & Not Pertinent, Arthritis, DM, Hyperlipidemia, Hypertension Patient has suicidal ideation: No Patient has homicidal ideation: No - Past Medical History Cardiac Medical History: Reports: Hx Hypertension Neurological Medical History: Reports: Hx Migraine Renal/ Medical History: Denies: Hx Peritoneal Dialysis Musculoskeletal Medical History: Reports Hx Musculoskeletal Trauma Psychiatric Medical History: Reports: Hx Anxiety, Hx Attention Deficit Hyperactivity Disorder, Hx Bipolar Disorder, Hx Depression, Hx Post Traumatic Stress Disorder Traumatic Medical History: Reports: Hx Fractures - nose Past Surgical History: Reports: Hx Abdominal Surgery - LAPROSCOPY, Hx G ynecologic Surgery - d&c, lap for endometriosis, Hx Nose Surgery - Reconstruction for fracture, Other - facial reconstruction - Immunizations Immunizations up to date: Yes Hx Diphtheria, Pertussis, Tetanus Vaccination: Yes - 2010 [facility] Provider Document - CONSTITUTIONAL Notes: PHYSICAL EXAMINATION: Reviewed vital signs and charting by RN GENERAL: Alert, interacts well. No acute distress. HEAD: Normocephalic, atraumatic. EYES: Pupils equal and round. Extraocular movements intact. ENT: Oral mucosa moist, tongue midline. NECK: Full range of motion. Trachea midline. LUNGS: Clear to auscultation bilaterally, no wheezes, rales, or rhonchi. No respiratory distress. HEART: Regular rate and rhythm. No murmur ABDOMEN: soft, non-tender. No distention. Bowel sounds present EXTREMITIES: Moves all 4 extremities spontaneously. No edema, No cyanosis. PSYCH: Normal affect, normal mood. SKIN: Warm, dry, normal turgor. No rashes or lesions noted. - INFECTION CONTROL TRAVEL OUTSIDE OF THE [place] IN LAST 30 DAYS: No Course - Re-evaluation Re-evalutation: 07/23/19 00:41 Well-appearing, nontoxic, no acute distress. This patient is in here frequently for the same issue. Patient states that she has an allergy to Reglan and Zofran. Patient states that the only thing that works for her is "Phenergan 50 mg IM and Benadryl 50 mg IV". This is well-known to staff. Patient has received this combination several times in the past while and she states it does help with her headache so I will order it. I will reassess treatment and am awaiting a urinalysis. Normal saline 1 L IV has been given. - Vital Signs Vital signs: Temp Pulse Resp BP Pulse Ox 98.3 F 100 16 110/67 100 07/22/19 22:20 07/22/19 22:20 07/22/19 22:20 07/22/19 22:20 07/22/19 22:20 - Laboratory Laboratory results interpreted by me: 07/22/19 23:43 Urine Blood SMALL H Ur Leukocyte Esterase MODERATE H Discharge - Discharge Clinical Impression: Nausea and vomiting during prior to 22 weeks gestation Urinary tract infection Qualifiers: Urinary tract infection type: acute cystitis Hematuria presence: with hematuria Qualified Code(s): N30.01 - Acute cystitis with hematuria Condition: Good Disposition: HOME, SELF-CARE Additional Instructions: You have been seen for nausea and vomiting during . You should continue to drink plenty of water and consider taking a solution such as Pedialyte if your having difficulty eating food. Please return if you become unable to drink any fluids for more than 12 hours, urinate less than twice a day, pass out, or have any other symptoms that are concerning to you. For nausea and vomiting during I recommend: Start with 10-12.5 mg of pyridoxine (vitamin B6) three times a day for 2 days. If not fully effective, Increase to 12.5 mg of pyridoxine four times a day for 2 days. If not fully effective, Increase to 25 mg of pyridoxine three times a day for 2 days. If not fully effective, Continue 25 mg pyridoxine 3 times a day, and add 12.5 mg of doxylamine before bedtime each day for 2 days. If not fully effective, Continue 25 mg pyridoxine 3 times a day, and take 12.5 mg of doxylamine twice a day. If not fully effective, Continue 25 mg pyridoxine 3 times a day, and take 12.5 mg of doxylamine three times a day. If not fully effective, Continue 25 mg pyridoxine 3 times a day, and 12.5 mg of doxylamine 3 times a day, while adding Emetrol, one to two tablespoons (15-30 cc) taken once or twice a day as needed. (Emetrol is an [id number] mixture of sugar syrups and phosphoric acid [phosphorylated carbohydrate solution]) that acts by soothing the actual wall of the gastrointestinal tract). If not fully effective, Consult with your doctor. Also, your urine shows findings consistent with a urinary tract infection. Please take all the antibiotics as directed even if your symptoms have improved. Please follow-up with your primary care physician as needed. Return to emergency room if you develop fever >101F, persistent vomiting, become lethargic, have severe pain in your sides, or any other symptoms that are concerning to you. Prescriptions: Cephalexin Monohydrate [Keflex 500 mg Capsule] 500 mg PO Q12H 7 Days capsule Referrals: GISSEL PEREZ FNP-C [Primary Care Provider] - Follow up as needed
[2019-07-23] MEDS ORDERED: CEPHALEXIN 500 MG CAPSULE PO ONE (00:45)
[2019-07-23] MEDS ORDERED: ACETAMINOPHEN 325 MG TABLET PO ONE (01:04)
== END 2019-07-23 01:11 | disposition home or self-care (01) ==
LOC: ER 22:08
DX: O21.9 Vomiting of pregnancy, unspecified (principal); O23.10 Infections of bladder in pregnancy, unspecified trimester; O26.899 Other specified pregnancy related conditions, unspecified trimester; R51 Headache; R10.9 Unspecified abdominal pain; O99.330 Smoking (tobacco) complicating pregnancy, unspecified trimester; F17.200 Nicotine dependence, unspecified, uncomplicated; O16.9 Unspecified maternal hypertension, unspecified trimester; Z3A.00 Weeks of gestation of pregnancy not specified
CPT/HCPCS: 87086; 87088; 81001; 87186; J1200; J2550; J7030; 96361; 96374; 96375; 99283

== ENCOUNTER 2019-07-25 17:55 | Emergency (ER) | payer SELFPAY ==
[2019-07-25] MEDS ORDERED: NORMAL SALINE 1000 ML 1,000 ML IV ONE (18:34)
[2019-07-25] MEDS ORDERED: PROMETHAZINE HCL 25 MG SUPP.RECT PR ONE (18:34)
--- NOTE | 2019-07-25 18:39 | ER Document Report ---
ED Medical Screen (RME) - General Chief Complaint: Nausea/Vomiting Stated Complaint: VOMITING, HEADACHE Time Seen by Provider: 07/25/19 18:30 Primary Care Provider: GISSEL PEREZ FNP-C [Primary Care Provider] - Follow up as needed TRAVEL OUTSIDE OF THE [place] IN LAST 30 DAYS: No - HPI Notes: 07/25/19 18:35 Patient is a 33-year-old female well-known to the emergency department for hyperemesis presents complaining of continued nausea and vomiting and demanding her Benadryl and Phenergan either IM or IV. She has been here multiple times always demanding the same thing and saying she is allergic to everything else that helps with nausea. She does have a urinary infection and started her Keflex for that. She was seen a few days ago for the same thing. Patient states that she has an appointment next week with Blanco Acosta. At this point in time I am going to only order rectal Phenergan as she cannot "take anything by mouth." I have reviewed with her that I don't usually like to give benadryl and phenergan IM/IV combo because it can get people "high" and I will defer to main side provider otherwise. No fever. I have treated and performed a rapid initial assessment of this patient. A comprehensive ED assessment and evaluation of the patient, analysis of test results and completion of medical decision making process will be conducted by additional ED providers. PHYSICAL EXAMINATION: GENERAL: Well-appearing, well-nourished and in no acute distress. - Related Data Allergies/Adverse Reactions: ketorolac tromethamine [From Toradol] Allergy (Verified 07/14/19 17:29) meperidine HCl [From Demerol] Allergy (Verified 07/14/19 17:29) metoclopramide HCl [From Reglan] Allergy (Verified 07/14/19 17:29) morphine [Morphine] Allergy (Verified 07/14/19 17:29) nalbuphine [From Nubain] Allergy (Verified 07/14/19 17:29) Hives prochlorperazine [From Compazine] Allergy (Verified 07/14/19 17:29) Hives tramadol [Tramadol] Allergy (Verified 07/14/19 17:29) Hives ondansetron HCl [From Zofran] Adverse Reaction (Verified 07/14/19 17:29) VOMITING Past Medical History - Social History Frequency of alcohol use: None Family history: None - Past Medical History Cardiac Medical History: Reports: Hx Hypertension Neurological Medical History: Reports: Hx Migraine Renal/ Medical History: Denies: Hx Peritoneal Dialysis Musculoskeltal Medical History: Reports Hx Musculoskeletal Trauma Psychiatric Medical History: Reports: Hx Anxiety, Hx Attention Deficit Hyperactivity Disorder, Hx Bipolar Disorder, Hx Depression, Hx Post Traumatic Stress Disorder Traumatic Medical History: Reports: Hx Fractures - nose Past Surgical History: Reports: Hx Abdominal Surgery - LAPROSCOPY, Hx Gynecologic Surgery - d&c, lap for endometriosis, Hx Nose Surgery - Reconstruction for fracture, Other - facial reconstruction - Immunizations Immunizations up to date: Yes Hx Diphtheria, Pertussis, Tetanus Vaccination: Yes - 2010 Physical Exam - Vital signs Vitals: Temp Pulse Resp BP Pulse Ox 98.5 F 102 H 18 132/75 H 99 07/25/19 17:56 07/25/19 17:56 07/25/19 17:56 07/25/19 17:56 07/25/19 17:56 Course - Vital Signs Vital signs: Temp Pulse Resp BP Pulse Ox 98.5 F 102 H 18 132/75 H 99 07/25/19 18:12 07/25/19 18:12 07/25/19 18:12 07/25/19 18:12 07/25/19 18:12 Doctor's Discharge - Discharge Referrals: GISSEL PEREZ FNP-C [Primary Care Provider] - Follow up as needed
[2019-07-25 19:04] LABS: APPEARANCE,URINE CLEAR; BILIRUBIN,URINE NEGATIVE (NEGATIVE); COLOR,URINE COLORLESS; GLUCOSE, URINE NEGATIVE (NEGATIVE); KETONES,URINE NEGATIVE (NEGATIVE); PROTEIN,URINE NEGATIVE (NEGATIVE); URINE SPECIFIC GRAVITY 1.002; UROBILINOGEN,URINE NEGATIVE mg/dL (<2.0)
[2019-07-25 20:07] LABS: ABSOLUTE EOSINOPHILS # (AUTO) 0.5 10^3/uL (0.0-0.6); ABSOLUTE MONOCYTES (AUTO) 0.8 10^3/uL (0.1-1.4); ABSOLUTE NEUT (AUTO) 2.8 10^3/uL (1.7-8.2); BASOPHILS % (AUTO) 0.6 % (0-2); EOSINOPHILS % (AUTO) 8.1 % (0-6); HEMATOCRIT 33.9 % (36.0-47.0); HEMOGLOBIN 11.2 g/dL (12.0-15.5); LYMPHOCYTES % (AUTO) 32.8 % (13-45); MEAN CORPUSCULAR HEMOGLOBIN 29.1 pg (27.0-33.4); MEAN CORPUSCULAR VOLUME 88 fl (80-97); MONOCYTES % (AUTO) 12.7 % (3-13); PLATELET COUNT 191 10^3/uL (150-450); RED BLOOD COUNT 3.84 10^6/uL (3.72-5.28); RED CELL DISTRIBUTION WIDTH 13.9 % (11.5-14.0); SEGMENTED NEUTROPHILS % (AUTO) 45.8 % (42-78); TOTAL CELLS COUNTED % (AUTO) 100 %; WHITE BLOOD COUNT 6.1 10^3/uL (4.0-10.5)
[2019-07-25 20:19] LABS: ALBUMIN 4.9 g/dL (3.5-5.0); ALKALINE PHOSPHATASE 79 U/L (38-126); ANION GAP 14 (5-19); ASPARTATE AMINO TRANSFERASE 30 U/L (14-36); BILIRUBIN,DIRECT 0.2 mg/dL (0.0-0.4); BILIRUBIN,TOTAL 0.4 mg/dL (0.2-1.3); BLOOD UREA NITROGEN 7 mg/dL (7-20); CALCIUM 9.7 mg/dL (8.4-10.2); CARBON DIOXIDE 24 mmol/L (22-30); CHLORIDE 103 mmol/L (98-107); GLUCOSE 87 mg/dL (75-110); POTASSIUM 4.2 mmol/L (3.6-5.0); TOTAL PROTEIN 8.5 g/dL (6.3-8.2)
[2019-07-25] MEDS ORDERED: PROMETHAZINE HCL INJ 25 MG/1 ML VIAL IM ONE (20:57)
--- NOTE | 2019-07-25 21:00 | ER Document Report ---
ED General - General Chief Complaint: Nausea/Vomiting Stated Complaint: VOMITING, HEADACHE Time Seen by Provider: 07/25/19 18:30 Primary Care Provider: GISSEL PEREZ FNP-C [Primary Care Provider] - Follow up as needed Mode of Arrival: Ambulatory Information source: Patient TRAVEL OUTSIDE OF THE [place] IN LAST 30 DAYS: No - HPI Onset: Other - over the last few days Onset/Duration: Gradual Quality of pain: Achy Severity: Moderate Associated symptoms: Nausea, Vomiting Exacerbated by: Food Relieved by: Other - nothing Similar symptoms previously: Yes - patient has been seen in this ER multiple times for the same Recently seen / treated by doctor: Yes - patient was just seen in this ER on 07/22/19 - Related Data Allergies/Adverse Reactions: ketorolac tromethamine [From Toradol] Allergy (Verified 07/14/19 17:29) meperidine HCl [From Demerol] Allergy (Verified 07/14/19 17:29) metoclopramide HCl [From Reglan] Allergy (Verified 07/14/19 17:29) morphine [Morphine] Allergy (Verified 07/14/19 17:29) nalbuphine [From Nubain] Allergy (Verified 07/14/19 17:29) Hives prochlorperazine [From Compazine] Allergy (Verified 07/14/19 17:29) Hives tramadol [Tramadol] Allergy (Verified 07/14/19 17:29) Hives ondansetron HCl [From Zofran] Adverse Reaction (Verified 07/14/19 17:29) VOMITING Past Medical History - Social History Smoking Status: Never Smoker Frequency of alcohol use: None Drug Abuse: None Family History: Reviewed & Not Pertinent, Arthritis, DM, Hyperlipidemia, Hypertension Patient has suicidal ideation: No Patient has homicidal ideation: No - Past Medical History Cardiac Medical History: Reports: Hx Hypertension Neurological Medical History: Reports: Hx Migraine Renal/ Medical History: Reports: Other - multiple pregnancies in the past. Denies: Hx Peritoneal Dialysis GI Medical History: Reports: Other - hyperemesis Musculoskeletal Medical History: Reports Hx Musculoskeletal Trauma Psychiatric Medical History: Reports: Hx Anxiety, Hx Attention Deficit Hyperactivity Disorder, Hx Bipolar Disorder, Hx Depression, Hx Post Traumatic Stress Disorder Traumatic Medical History: Reports: Hx Fractures - nose Past Surgical History: Reports: Hx Abdominal Surgery - LAPROSCOPY, Hx Gynecologic Surgery - d&c, lap for endometriosis, Hx Nose Surgery - Recons truction for fracture, Other - facial reconstruction - Immunizations Immunizations up to date: Yes Hx Diphtheria, Pertussis, Tetanus Vaccination: Yes - 2010 Review of Systems - Review of Systems Constitutional: No symptoms reported EENT: No symptoms reported Cardiovascular: No symptoms reported Respiratory: No symptoms reported Gastrointestinal: Nausea, Vomiting Genitourinary: Other - patient says she has a UTI and is being treated for it no w Female Genitourinary: Other - patient is Musculoskeletal: No symptoms reported Skin: No symptoms reported Hematologic/Lymphatic: No symptoms reported Neurological/Psychological: No symptoms reported Physical Exam - Vital signs Vitals: Temp Pulse Resp BP Pulse Ox 98.5 F 102 H 18 132/75 H 99 07/25/19 17:56 07/25/19 17:56 07/25/19 17:56 07/25/19 17:56 07/25/19 17:56 - Notes Notes: GENERAL: Well-appearing, well-nourished, mild distress, anxious appearing HEAD: Atraumatic, normocephalic. EYES: Pupils equal round and reactive to light, extraocular movements intact, sclera anicteric, conjunctiva are normal. ENT: Nares patent, oropharynx clear without exudates. Moist mucous membranes. NECK: Normal range of motion, supple without lymphadenopathy or JVD. LUNGS: Breath sounds clear to auscultation bilaterally and equal. No wheezes rales or rhonchi. HEART: Regular rate and rhythm without murmurs, rubs or gallops. ABDOMEN: Soft, nontender, normoactive bowel sounds. Abdomen is distended due to . No guarding, no rebound. No masses appreciated. EXTREMITIES: Normal range of motion, no pitting or edema. No clubbing or cyanosis. NEUROLOGICAL: Cranial nerves II through XII grossly intact. Normal speech, normal gait. PSYCH: Normal mood, normal affect. SKIN: Warm, Dry, normal turgor, no rashes or lesions noted. Course - Re-evaluation Re-evalutation: 07/25/19 21:06 The patient is here for nausea/vomiting. She has a history of hyperemesis. She is and thinks she is about 6 weeks . I performed a bedside ultrasound and it seems the patient is and I think I could see a heart beat. The patient has an [facility] appointment next week. She was told to discuss her hyperemesis and treatment for it there as she is allergic (allegedly) to all antiemetics except for Phenergan. Patient was told this is not the preferred drug of choice for nausea in . - Vital Signs Vital signs: Temp Pulse Resp BP Pulse Ox 98.1 F 89 20 129/87 H 99 07/25/19 19:59 07/25/19 19:59 07/25/19 19:59 07/25/19 19:59 07/25/19 19:59 - Laboratory Result Diagrams: 07/25/19 19:50 07/25/19 19:50 Laboratory results interpreted by me: 07/25/19 07/25/19 07/25/19 18:08 19:50 19:50 Hgb 11.2 L Hct 33.9 L Eos % (Auto) 8.1 H Total Protein 8.5 H Leukocyte Esterase Rfl SMALL H Discharge - Discharge Clinical Impression: Hyperemesis gravidarum Condition: Stable Disposition: HOME, SELF-CARE Instructions: Hyperemesis Gravidarum ([facility]) Additional Instructions: Follow up with your [facility] Doctor GÓMEZ and discuss your chronic nausea and vomiting with him/her and possible alternative treatment options. Chirag tinoco. Referrals: GISSEL PEREZ, ASSOCI[employer] [Primary Care Provider] - Follow up as needed
[2019-07-25] MEDS ORDERED: ACETAMINOPHEN 325 MG TABLET PO ONE (21:28)
[2019-07-25 21:35] VITALS: BP 131/79
== END 2019-07-25 21:34 | disposition home or self-care (01) ==
LOC: ER 17:55
DX: O21.0 Mild hyperemesis gravidarum (principal); O16.9 Unspecified maternal hypertension, unspecified trimester; Z3A.00 Weeks of gestation of pregnancy not specified; Z88.8 Allergy status to other drugs, medicaments and biological substances; Z88.5 Allergy status to narcotic agent; Z88.6 Allergy status to analgesic agent
CPT/HCPCS: 99283; 96372; 96360; 36415; 87086; 83690; 85025; 80053; 81001; J2550; J7030

== ENCOUNTER 2019-07-28 16:59 | Emergency (ER) | payer SELFPAY ==
[2019-07-28 17:07] VITALS: BP 138/74
[2019-07-28] MEDS ORDERED: CLONAZEPAM 1 MG TABLET PO ONE (17:40)
--- NOTE | 2019-07-28 17:42 | ER Document Report ---
HPI - HPI Patient complains to provider of: med refill Time Seen by Provider: 07/28/19 17:28 Onset: Yesterday Onset/Duration: Worse Quality of pain: Other - anxiety Severity: None Pain Level: Denies Associated Symptoms: Other - Anxiety panic Exacerbated by: Denies Relieved by: Denies Similar symptoms previously: Yes Recently seen / treated by doctor: Yes - ROS ROS below otherwise negative: Yes - CONSTITUTIONAL Constitutional: DENIES: Fever, Chills - EENT EENT: DENIES: Sore Throat, Ear Pain, Nasal Drainage-Clear, Nasal Drainage- Purulent, Congestion, Eye problems - NEURO Neurology: DENIES: Headache, Weakness, Vision blurred, Dizzinesss / Vertigo - CARDIOVASCULAR Cardiovascular: DENIES: Chest pain - RESPIRATORY Respiratory: DENIES: Trouble Breathing, Coughing - GASTROINTESTINAL Gastrointestinal: DENIES: Abdominal Pain, Nausea, Patient vomiting, Diarrhea, Constipation, Black / Bloody Stools - URINARY Urinary: DENIES: Dysuria, Urgency, Frequency - REPRODUCTIVE Reproductive: REPORTS: :. DENIES: Postmenopausal, Abnormal bleeding / discharge - MUSCULOSKELETAL Musculoskeletal: REPORTS: Extremity pain - DERM Skin Color: Normal Skin Problems: None Past Medical History - General Information source: Patient - Social History Smoking Status: Current Every Day Smoker Cigarette use (# per day): Yes - 3 cigarettes a day Smoking Education Provided: Yes - 4 minutes Frequency of alcohol use: None Drug Abuse: None Lives with: Family Family History: Reviewed & Not Pertinent, Arthritis, DM, Hyperlipidemia, Hypertension Patient has suicidal ideation: No Patient has homicidal ideation: No - Past Medical History Cardiac Medical History: Reports: Hx Hypertension Pulmonary Medical History: Reports: None EENT Medical History: Reports: None Neurological Medical History: Reports: Hx Migraine Endocrine Medical History: Reports: None Renal/ Medical History: Reports: None Malignancy Medical History: Reports: None GI Medical History: Reports: None Musculoskeletal Medical History: Reports Hx Musculoskeletal Trauma Skin Medical History: Reports None Psychiatric Medical History: Reports: Hx Anxiety, Hx Attention Deficit Hyperactivity Disorder, Hx Bipolar Disorder - Bipolar 1, Hx Depression, Hx Post Traumatic Stress Disorder, Other - Romi 4 Traumatic Medical History: Reports: Hx Fractures - nose Infectious Medical History: Reports: None Past Surgical History: Reports: Hx Abdominal Surgery - LAPROSCOPY, Hx Gynecologic Surgery - d&c, lap for endometriosis, Hx Nose Surgery - Reconstruction for fracture, Other - facial reconstruction - Immunizations Immunizations up to date: Yes Hx Diphtheria, Pertussis, Tetanus Vaccination: Yes - 2010 [facility] Provider Document - CONSTITUTIONAL Agree With Documented VS: Yes Exam Limitations: No Limitations General Appearance: WD/WN, No Apparent Distress - INFECTION CONTROL TRAVEL OUTSIDE OF THE [place] IN LAST 30 DAYS: No - HEENT HEENT: Atraumatic, Normal ENT Exam, Normocephalic, PERRLA - NECK Neck: Normal Inspection, Supple, Thyroid Normal - RESPIRATORY Respiratory: Breath Sounds Normal, No Respiratory Distress - CARDIOVASCULAR Cardiovascular: Regular Rate, Regular Rhythm, No Murmur - GI/ABDOMEN Gastrointestinal: Abdomen Soft, Abdomen Non-Tender - BACK Back: Normal Inspection - MUSCULOSKELETAL/EXTREMETIES Musculoskeletal/Extremeties: MAEW, FROM, Non-Tender - NEURO Level of Consciousness: Awake, Alert, Appropriate Motor/Sensory: No Motor Deficit, No Sensory Deficit, No Pronator Drift Deep Tendon Reflexes: 2+ - DERM Integumentary: Warm, Dry, No Rash Course - Re-evaluation Re-evalutation: 07/28/19 17:42 33-year-old female presented to ED for complaint of being out of her Klonopin since yesterday. She is 6 to 8 weeks . She states she has been on this medicine with every so far and the doctors told her that they cannot take her off of it while she is because it could affect the baby being taken off of it and it can cause seizures. Her and I have discussed extensively the risk of being on this medicine and she states she knows when she is talking with her medical and mental health providers concerning this medication. They state they do not want her to wean off at this time according to the patient. I have given her a pills to take home on prescription and 1 pill while in the emergency room. She is verbalized understanding of my concerns and states she knows what she needs to take the medicine at this time. She got a prescription for 36 pills on 18 July which is a 12-day supply she takes this 3 times a day. - Vital Signs Vital signs: Temp Pulse Resp BP Pulse Ox 99.0 F 102 H 138/74 H 100 07/28/19 17:06 07/28/19 17:06 07/28/19 17:06 07/28/19 17:06 Discharge - Discharge Clinical Impression: Medication refill Condition: Stable Disposition: HOME, SELF-CARE Instructions: Anxiety ([facility]) Prescriptions: Clonazepam [Klonopin] 1 mg PO TID #8 tablet Promethazine HCl [Phenergan 25 mg Tablet] 25 mg PO Q6H PRN #7 tablet PRN Reason: Forms: Elevated Blood Pressure Referrals: GISSEL PEREZ FNP-C [Primary Care Provider] - Follow up as needed
== END 2019-07-28 17:53 | disposition home or self-care (01) ==
LOC: ER 16:59
DX: Z76.0 Encounter for issue of repeat prescription (principal); F17.210 Nicotine dependence, cigarettes, uncomplicated; I10 Essential (primary) hypertension; Z79.899 Other long term (current) drug therapy
CPT/HCPCS: 99283

== ENCOUNTER 2019-07-29 21:56 | Emergency (ER) | payer SELFPAY ==
[2019-07-29 22:34] LABS: APPEARANCE,URINE CLEAR; BILIRUBIN,URINE NEGATIVE (NEGATIVE); COLOR,URINE COLORLESS; GLUCOSE, URINE NEGATIVE (NEGATIVE); KETONES,URINE NEGATIVE (NEGATIVE); LEUKOCYTE ESTERASE,URINE SMALL (NEGATIVE); NITRITE,URINE NEGATIVE (NEGATIVE); PROTEIN,URINE NEGATIVE (NEGATIVE); URINE SPECIFIC GRAVITY 1.002; UROBILINOGEN,URINE NEGATIVE mg/dL (<2.0)
--- NOTE | 2019-07-29 22:40 | ER Document Report ---
ED Dizziness/Weakness - General Chief Complaint: Dizziness Stated Complaint: DIZZINESS,ABDOMINAL PAIN Time Seen by Provider: 07/29/19 22:38 Primary Care Provider: GISSEL PEREZ FNP-C [Primary Care Provider] - Follow up as needed Notes: Ms. Valdes is 33 yo female female approximately 6 weeks with PMH of hypertension, ADHD, bipolar manic type, PTSD presenting to the ED for nausea, vomiting, right-sided abdominal pain and dizziness. Patient states that she just had her last son approximately 3 months ago in March. He was born early at 36.5 weeks secondary to complicated preeclampsia which required induction. Patient states that she has been taking labetalol, hydrochlorothiazide and Klonopin for her blood pressure. She also states she still continues to smoke approximately 5 to 6 cigarettes daily. She smoked throughout her entire previous . She denies any fevers or chills, chest pain, or diarrhea. She states that she is been constipated and had a bowel movement yesterday for the first time since . She had to strain quite a bit to have this bowel movement. She also states that she is actively being treated for a UTI with Keflex and has 1 tablet left. She endorses vaginal itching and concern for yeast infection. Patient states she has multiple antiemetic allergies and would like to receive Phenergan 50 mg IM in addition to Benadryl 50 mg IM. I expl ained that a combination of both medications is not ideal and I would be happy to administer Benadryl by mouth in addition to Phenergan for her nausea. TRAVEL OUTSIDE OF THE [place] IN LAST 30 DAYS: No - Related Data Allergies/Adverse Reactions: ketorolac tromethamine [From Toradol] Allergy (Verified 07/28/19 17:28) meperidine HCl [From Demerol] Allergy (Verified 07/28/19 17:28) metoclopramide HCl [From Reglan] Allergy (Verified 07/28/19 17:28) morphine [Morphine] Allergy (Verified 07/28/19 17:28) nalbuphine [From Nubain] Allergy (Verified 07/28/19 17:28) Hives prochlorperazine [From Compazine] Allergy (Verified 07/28/19 17:28) Hives tramadol [Tramadol] Allergy (Verified 07/28/19 17:28) Hives lamotrigine [From Lamictal] Adverse Reaction (Verified 07/28/19 17:42) Hives ondansetron HCl [From Zofran] Adverse Reaction (Verified 07/28/19 17:28) VOMITING Past Medical History - Social History Smoking Status: Current Every Day Smoker Family History: Reviewed & Not Pertinent, Arthritis, DM, Hyperlipidemia, Hypertension Patient has suicidal ideation: No Patient has homicidal ideation: No - Past Medical History Cardiac Medical History: Reports: Hx Hypertension Neurological Medical History: Reports: Hx Migraine Renal/ Medical History: Denies: Hx Peritoneal Dialysis Musculoskeletal Medical History: Reports Hx Musculoskeletal Trauma Psychiatric Medical History: Reports: Hx Anxiety, Hx Attention Deficit Hyperactivity Disorder, Hx Bipolar Disorder - Bipolar 1, Hx Depression, Hx Post Traumatic Stress Disorder Traumatic Medical History: Reports: Hx Fractures - nose Past Surgical History: Reports: Hx Abdominal Surgery - LAPROSCOPY, Hx Gynecologic Surgery - d&c, lap for endometriosis, Hx Nose Surgery - Reconstruction for fracture, Other - facial reconstruction - Immunizations Immunizations up to date: Yes Hx Diphtheria, Pertussis, Tetanus Vaccination: Yes - 2010 Review of Systems - Review of Systems Constitutional: See HPI EENT: No symptoms reported Cardiovascular: No symptoms reported Respiratory: No symptoms reported Gastrointestinal: No symptoms reported Genitourinary: See HPI Female Genitourinary: See HPI Musculoskeletal: No symptoms reported Skin: No symptoms reported Hematologic/Lymphatic: No symptoms reported Neurological/Psychological: No symptoms reported Physical Exam - Vital signs Vitals: Temp Pulse Resp BP Pulse Ox 98 F 99 20 132/74 H 99 07/29/19 22:12 07/29/19 22:12 07/29/19 22:12 07/29/19 22:12 07/29/19 22:12 Interpretation: Normal - General General appearance: Appears well, Alert - HEENT Head: Normocephalic, Atraumatic Eyes: Normal Pupils: PERRL Notes: Poor dentition throughout with multiple missing teeth in the right frontal region. - Respiratory Respiratory status: No respiratory distress Chest status: Nontender Breath sounds: Normal Chest palpation: Normal - Cardiovascular Rhythm: Regular Heart sounds: Normal auscultation Murmur: No - Abdominal Inspection: Normal Distension: No distension Bowel sounds: Normal Tenderness: Nontender Organomegaly: No organomegaly - Back Back: Normal, Nontender - Extremities General upper extremity: Normal inspection, Nontender, Normal color, Normal ROM, Normal temperature General lower extremity: Normal inspection, Nontender, Normal color, Normal ROM, Normal temperature, Normal weight bearing. No: Yovani's sign - Neurological Neuro grossly intact: Yes Cognition: Normal Orientation: AAOx4 Ron Coma Scale Eye Opening: Spontaneous [place] Coma Scale Verbal: Oriented Ron Coma Scale Motor: Obeys Commands Ron Coma Scale Total: 15 Speech: Normal Motor strength normal: LUE, RUE, LLE, RLE Sensory: Normal - Psychological Associated symptoms: Normal affect, Normal mood - Skin Skin Temperature: Warm Skin Moisture: Dry Skin Color: Normal Course - Re-evaluation Re-evalutation: Only well-appearing nontoxic. Initial vitals within normal limits. Patient is not actively retching or vomiting. Differential diagnosis includes dehydration, electrolyte abnormality, hyperemesis gravidarum (unlikely), drug-seeking Patient's CBC and CMP within normal limits. [place] [address]. Previous chart shows pt is B+. 07/30/19 01:06 Patient has requested Phenergan as well as Benadryl IV multiple times from the nursing staff. She just returned from ultrasound. 07/30/19 01:57 Updated the patient on her normal labs and 7-week 1 day ultrasound which also appears to be normal. Patient again requesting IV dose of Phenergan. Patient again requesting IV dose of Phenergan in addition to Benadryl although she has not had any episodes of vomiting while here in ED. I explained to the patient that Phenergan in combination with Benadryl causes "a high" and although she describes this as her " normal dose" we would not be giving this to her today. Patient offered rectal Phenergan suppository. Will DC with instructions to follow-up with her OB. - Vital Signs Vital signs: Temp Pulse Resp BP Pulse Ox 98.2 F 83 15 101/55 L 100 07/30/19 02:13 07/30/19 02:13 07/30/19 02:13 07/30/19 02:13 07/30/19 02:13 - Laboratory Result Diagrams: 07/29/19 23:40 07/29/19 23:40 Laboratory results interpreted by me: 07/29/19 07/29/19 07/29/19 22:05 22:05 23:40 Hgb Hct Calcium Serum HCG, Qual POSITIVE H Beta HCG, Quant Urine Blood SMALL H Ur Leukocyte Esterase SMALL H Urine HCG, Qual POSITIVE H 07/29/19 07/29/19 07/29/19 23:40 23:40 23:40 Hgb 11.6 L Hct 35.0 L Calcium 10.5 H Serum HCG, Qual Beta HCG, Quant 24878.00 H Urine Blood Ur Leukocyte Esterase Urine HCG, Qual Discharge - Discharge Clinical Impression: First trimester , Nausea and vomiting during prior to 22 weeks gestation, Candidal vaginitis Condition: Good Disposition: HOME, SELF-CARE Instructions: Antinausea Medication ([facility]), ([facility]) Additional Instructions: It is important that you follow-up with your remote sensing research scientist. I would recommend that you try to quit smoking altogether. Make sure that you check your blood pressure regularly and take your blood pressure medication as prescribed. Prescriptions: Promethazine HCl [Phenergan 25 mg Supp.rect] 1 supp MT TID PRN #[id number] supp.rect PRN Reason: Referrals: GISSEL PEREZ, BATCH HEAT TREAT OPERATOR-C [Primary Care Provider] - Follow up as needed
[2019-07-29] MEDS ORDERED: DIPHENHYDRAMINE HCL 25 MG CAPSULE PO ONE (22:59)
[2019-07-29] MEDS ORDERED: NORMAL SALINE 1000 ML 1,000 ML IV ONE (22:59)
[2019-07-29] MEDS ORDERED: PROMETHAZINE HCL INJ 25 MG/1 ML VIAL IV ONE (22:59)
[2019-07-29 23:52] LABS: ABSOLUTE EOSINOPHILS # (AUTO) 0.3 10^3/uL (0.0-0.6); ABSOLUTE LYMPHOCYTES (AUTO) 1.8 10^3/uL (0.5-4.7); ABSOLUTE MONOCYTES (AUTO) 0.7 10^3/uL (0.1-1.4); ABSOLUTE NEUT (AUTO) 3.3 10^3/uL (1.7-8.2); BASOPHILS % (AUTO) 0.2 % (0-2); EOSINOPHILS % (AUTO) 5.4 % (0-6); HEMOGLOBIN 11.6 g/dL (12.0-15.5); LYMPHOCYTES % (AUTO) 29.8 % (13-45); MEAN CORPUSCULAR HEMOGLOBIN 28.9 pg (27.0-33.4); MEAN CORPUSCULAR HGB CONC 33.2 g/dL (32.0-36.0); MEAN CORPUSCULAR VOLUME 87 fl (80-97); MONOCYTES % (AUTO) 10.9 % (3-13); PLATELET COUNT 185 10^3/uL (150-450); RED BLOOD COUNT 4.03 10^6/uL (3.72-5.28); RED CELL DISTRIBUTION WIDTH 13.2 % (11.5-14.0); SEGMENTED NEUTROPHILS % (AUTO) 53.7 % (42-78); TOTAL CELLS COUNTED % (AUTO) 100 %; WHITE BLOOD COUNT 6.2 10^3/uL (4.0-10.5)
[2019-07-30 00:15] LABS: ALBUMIN 4.7 g/dL (3.5-5.0); ALKALINE PHOSPHATASE 64 U/L (38-126); ANION GAP 14 (5-19); ASPARTATE AMINO TRANSFERASE 22 U/L (14-36); BILIRUBIN,DIRECT 0.1 mg/dL (0.0-0.4); BILIRUBIN,TOTAL 0.5 mg/dL (0.2-1.3); BLOOD UREA NITROGEN 11 mg/dL (7-20); CALCIUM 10.5 mg/dL (8.4-10.2); CARBON DIOXIDE 24 mmol/L (22-30); CHLORIDE 101 mmol/L (98-107); GLUCOSE 86 mg/dL (75-110); POTASSIUM 3.6 mmol/L (3.6-5.0)
[2019-07-30 00:35] LABS: URINE AMPHETAMINES SCREEN NEGATIVE; URINE BARBITURATES SCREEN NEGATIVE; URINE BENZODIAZEPINES SCREEN NEGATIVE; URINE COCAINE SCREEN NEGATIVE; URINE MARIJUANA (THC) SCREEN NEGATIVE; URINE METHADONE SCREEN NEGATIVE; URINE PHENCYCLIDINE SCREEN NEGATIVE
--- NOTE | 2019-07-30 01:09 | RADIOLOGY REPORT (SQ) ---
EXAM DESCRIPTION: US LESS THAN 14 WEEKS COMPLETED DATE/TME: 07/30/2019 00:02 CLINICAL HISTORY: 33 years Female, preg, abd pain on R COMPARISON: None TECHNIQUE: Transabdominal. LIMITATIONS: None. FINDINGS: Living intrauterine fetus measures 7 w1d with KRISTEN of 03/16/2020. Cardiac activity is 140-bpm. [place]-rump length is 1.02-cm. Nonvisualized ovaries, 2.8--cm cervical length, and no free fluid appear otherwise unremarkable. IMPRESSION: Living 1st trimester intrauterine gestation. No evidence of complication.
[2019-07-30] MEDS ORDERED: FLUCONAZOLE 100 MG TABLET PO ONE (01:50)
[2019-07-30] MEDS ORDERED: PROMETHAZINE HCL 25 MG SUPP.RECT PR ONE (01:55)
[2019-07-30 02:21] VITALS: BP 101/55
== END 2019-07-30 02:22 | disposition home or self-care (01) ==
LOC: ER 21:56
DX: O21.9 Vomiting of pregnancy, unspecified (principal); O98.811 Other maternal infectious and parasitic diseases complicating pregnancy, first trimester; B37.3 Candidiasis of vulva and vagina; R42 Dizziness and giddiness; Z3A.01 Less than 8 weeks gestation of pregnancy
CPT/HCPCS: 99284; 96361; 96374; 36415; 84702; 83690; 84703; 85025; 81025; 80053; 81001; 80307; 76801; J2550; J3490; J7030

== ENCOUNTER 2019-07-30 11:11 | Emergency (ER) | payer SELFPAY ==
--- NOTE | 2019-07-30 11:24 | ER Document Report ---
ED Medical Screen (RME) - General Chief Complaint: Suicidal Ideation Stated Complaint: SUICIDAL IDEATION Time Seen by Provider: 07/30/19 11:20 Primary Care Provider: GISSEL PEREZ FNP-C [Primary Care Provider] - Follow up as needed Mode of Arrival: Ambulatory Information source: Patient Notes: 33-year-old female presented to ED for complaint of suicidal thoughts. She did go to [facility] this morning and she states she told the doctor that she was having thoughts of suicide. She states she did not verbalize any definite plan she was just having thoughts of suicide. States she is taking all of her medications as she is supposed to be taking. She states her mind is racing and all of her thoughts are bad. She has been into the emergency room a couple times in the last week. States she has attempted suicide in the past. Patient is about 9 weeks and 1 day with her seventh child. I have greeted and performed a rapid initial assessment of this patient. A comprehensive ED assessment and evaluation of the patient, analysis of test results and completion of medical decision making process will be conducted by an additional ED providers. TRAVEL OUTSIDE OF THE [place] IN LAST 30 DAYS: No - Related Data Allergies/Adverse Reactions: ketorolac tromethamine [From Toradol] Allergy (Verified 07/28/19 17:28) meperidine HCl [From Demerol] Allergy (Verified 07/28/19 17:28) metoclopramide HCl [From Reglan] Allergy (Verified 07/28/19 17:28) morphine [Morphine] Allergy (Verified 07/28/19 17:28) nalbuphine [From Nubain] Allergy (Verified 07/28/19 17:28) Hives prochlorperazine [From Compazine] Allergy (Verified 07/28/19 17:28) Hives tramadol [Tramadol] Allergy (Verified 07/28/19 17:28) Hives lamotrigine [From Lamictal] Adverse Reaction (Verified 07/28/19 17:42) Hives ondansetron HCl [From Zofran] Adverse Reaction (Verified 07/28/19 17:28) VOMITING Past Medical History - Social History Cigarette use (# per day): Yes - Great today Chew tobacco use (# tins/day): No Frequency of alcohol use: None Drug Abuse: None Lives with: Family Family history: None - Past Medical History Cardiac Medical History: Reports: Hx Hypertension Neurological Medical History: Reports: Hx Migraine Renal/ Medical History: Denies: Hx Peritoneal Dialysis Musculoskeltal Medical History: Reports Hx Musculoskeletal Trauma Psychiatric Medical History: Reports: Hx Anxiety, Hx Attention Deficit Hyperactivity Disorder, Hx Bipolar Disorder - Bipolar 1, Hx Depression, Hx Post Traumatic Stress Disorder Traumatic Medical History: Reports: Hx Fractures - nose Past Surgical History: Reports: Hx Abdominal Surgery - LAPROSCOPY, Hx Gynecologic Surgery - d&c, lap for endometriosis, Hx Nose Surgery - Reconstruction for fracture, Other - facial reconstruction - Immunizations Immunizations up to date: Yes Hx Diphtheria, Pertussis, Tetanus Vaccination: Yes - 2010 Doctor's Discharge - Discharge Referrals: GISSEL PEREZ, MATE [employer]-C [Primary Care Provider] - Follow up as needed
[2019-07-30 12:17] LABS: ABSOLUTE EOSINOPHILS # (AUTO) 0.3 10^3/uL (0.0-0.6); ABSOLUTE LYMPHOCYTES (AUTO) 1.3 10^3/uL (0.5-4.7); ABSOLUTE MONOCYTES (AUTO) 0.5 10^3/uL (0.1-1.4); BASOPHILS % (AUTO) 0.8 % (0-2); EOSINOPHILS % (AUTO) 5.7 % (0-6); HEMATOCRIT 34.9 % (36.0-47.0); HEMOGLOBIN 11.5 g/dL (12.0-15.5); LYMPHOCYTES % (AUTO) 25.9 % (13-45); MEAN CORPUSCULAR HEMOGLOBIN 28.8 pg (27.0-33.4); MEAN CORPUSCULAR HGB CONC 32.9 g/dL (32.0-36.0); MEAN CORPUSCULAR VOLUME 88 fl (80-97); MONOCYTES % (AUTO) 9.4 % (3-13); PLATELET COUNT 186 10^3/uL (150-450); RED BLOOD COUNT 3.99 10^6/uL (3.72-5.28); SEGMENTED NEUTROPHILS % (AUTO) 58.2 % (42-78); TOTAL CELLS COUNTED % (AUTO) 100 %; WHITE BLOOD COUNT 5.2 10^3/uL (4.0-10.5)
[2019-07-30 12:20] LABS: APPEARANCE,URINE CLEAR; BILIRUBIN,URINE NEGATIVE (NEGATIVE); COLOR,URINE COLORLESS; GLUCOSE, URINE NEGATIVE (NEGATIVE); KETONES,URINE NEGATIVE (NEGATIVE); LEUKOCYTE ESTERASE,URINE SMALL (NEGATIVE); NITRITE,URINE NEGATIVE (NEGATIVE); PROTEIN,URINE NEGATIVE (NEGATIVE); URINE SPECIFIC GRAVITY 1.002; UROBILINOGEN,URINE NEGATIVE mg/dL (<2.0)
[2019-07-30 12:31] LABS: ADD MANUAL MICROSCOPIC YES
[2019-07-30 12:33] LABS: URINE AMPHETAMINES SCREEN NEGATIVE; URINE BARBITURATES SCREEN NEGATIVE; URINE BENZODIAZEPINES SCREEN NEGATIVE; URINE COCAINE SCREEN NEGATIVE; URINE MARIJUANA (THC) SCREEN NEGATIVE; URINE METHADONE SCREEN NEGATIVE; URINE PHENCYCLIDINE SCREEN NEGATIVE
[2019-07-30 12:37] LABS: ALBUMIN 4.9 g/dL (3.5-5.0); ALKALINE PHOSPHATASE 68 U/L (38-126); ANION GAP 14 (5-19); ASPARTATE AMINO TRANSFERASE 24 U/L (14-36); BILIRUBIN,DIRECT 0.2 mg/dL (0.0-0.4); BILIRUBIN,TOTAL 0.4 mg/dL (0.2-1.3); BLOOD UREA NITROGEN 10 mg/dL (7-20); CALCIUM 10.4 mg/dL (8.4-10.2); CARBON DIOXIDE 21 mmol/L (22-30); CHLORIDE 105 mmol/L (98-107); GLUCOSE 89 mg/dL (75-110); POTASSIUM 4.2 mmol/L (3.6-5.0); TOTAL PROTEIN 8.2 g/dL (6.3-8.2)
[2019-07-30 12:38] LABS: ACETAMINOPHEN < 10 ug/mL (10-30); ALCOHOL < 10 mg/dL (NONE DETECTED); SALICYLATE < 1.0 mg/dL (2.0-20.0)
--- NOTE | 2019-07-30 13:53 | ER Document Report ---
ED Psych Disorder / Suicide - General Chief Complaint: Suicidal Ideation Stated Complaint: SUICIDAL IDEATION Time Seen by Provider: 07/30/19 11:20 Primary Care Provider: GISSEL PEREZ FNP-C [Primary Care Provider] - Follow up as needed Mode of Arrival: Ambulatory Notes: 33-year-old G8, P7 female presented to ED for complaint of suicidal ideations. She did go to [facility] this morning and she states she told the doctor that she was having thoughts of suicide. No plan. States she is taking all of her medications as she is supposed to be taking. She states her mind is racing and she cannot stop thinking about the thought of . No auditory or visual hallucinations. Previous suicide attempts. TRAVEL OUTSIDE OF THE [place] IN LAST 30 DAYS: No - Related Data Allergies/Adverse Reactions: ketorolac tromethamine [From Toradol] Allergy (Verified 07/28/19 17:28) meperidine HCl [From Demerol] Allergy (Verified 07/28/19 17:28) metoclopramide HCl [From Reglan] Allergy (Verified 07/28/19 17:28) morphine [Morphine] Allergy (Verified 07/28/19 17:28) nalbuphine [From Nubain] Allergy (Verified 07/28/19 17:28) Hives prochlorperazine [From Compazine] Allergy (Verified 07/28/19 17:28) Hives tramadol [Tramadol] Allergy (Verified 07/28/19 17:28) Hives lamotrigine [From Lamictal] Adverse Reaction (Verified 07/28/19 17:42) Hives ondansetron HCl [From Zofran] Adverse Reaction (Verified 07/28/19 17:28) VOMITING Past Medical History - General Information source: Patient - Social History Smoking Status: Unknown if Ever Smoked Cigarette use (# per day): Yes - Great today Chew tobacco use (# tins/day): No Frequency of alcohol use: None Drug Abuse: None Lives with: Family Family History: Reviewed & Not Pertinent, Arthritis, DM, Hyperlipidemia, Hypertension Patient has suicidal ideation: Yes Patient has homicidal ideation: No - Past Medical History Cardiac Medical History: Reports: Hx Hypertension Neurological Medical History: Reports: Hx Migraine Renal/ Medical History: Denies: Hx Peritoneal Dialysis Musculoskeletal Medical History: Reports Hx Musculoskeletal Trauma Psychiatric Medical History: Reports: Hx Anxiety, Hx Attention Deficit Hyperactivity Disorder, Hx Bipolar Disorder - Bipolar 1, Hx Depression, Hx Post Traumatic Stress Disorder Traumatic Medical History: Reports: Hx Fractures - nose Past Surgical History: Reports: Hx Abdominal Surgery - LAPROSCOPY, Hx Gynecologic Surgery - d&c, lap for endometriosis, Hx Nose Surgery - Reconstruction for fracture, Other - facial reconstruction - Immunizations Immunizations up to date: Yes Hx Diphtheria, Pertussis, Tetanus Vaccination: Yes - 2010 Review of Systems - Review of Systems Constitutional: No symptoms reported EENT: No symptoms reported Cardiovascular: No symptoms reported Respiratory: No symptoms reported Gastrointestinal: No symptoms reported Genitourinary: No symptoms reported Female Genitourinary: No symptoms reported Musculoskeletal: No symptoms reported Skin: No symptoms reported Hematologic/Lymphatic: No symptoms reported Neurological/Psychological: See HPI Physical Exam - Vital signs Vitals: Temp Pulse Resp BP Pulse Ox 97.6 F 96 16 121/73 100 07/30/19 11:20 07/30/19 11:20 07/30/19 11:20 07/30/19 11:20 07/30/19 11:20 - Notes Notes: PHYSICAL EXAMINATION: Reviewed vital signs and charting by RN GENERAL: Alert, interacts well. No acute distress. HEAD: Normocephalic, atraumatic. EYES: Pupils equal and round. Extraocular movements intact. ENT: Oral mucosa moist, tongue midline. NECK: Full range of motion. Trachea midline. LUNGS: Clear to auscultation bilaterally, no wheezes, rales, or rhonchi. No respiratory distress. HEART: Regular rate and rhythm. No murmur ABDOMEN: soft, non-tender. No distention. Bowel sounds present EXTREMITIES: Moves all 4 extremities spontaneously. No edema, No cyanosis. PSYCH: Flat affect, depressed mood, tearful SKIN: Warm, dry, normal turgor. No rashes or lesions noted. Course - Re-evaluation Re-evalutation: 07/30/19 13:50 Patient is well-known to this emergency department and this is her third or fourth visit here this week. Patient with suicidal ideations. Lab work obt ained, no acute abnormalities. EKG showed normal sinus rhythm with a rate of 88, normal axis, QTC 455. No ST segment elevations or depressions, no T wave abnormalities. Patient has been medically cleared for psychiatric disposition - Vital Signs Vital signs: Temp Pulse Resp BP Pulse Ox 97.6 F 96 16 121/73 100 07/30/19 11:20 07/30/19 11:20 07/30/19 11:20 07/30/19 11:20 07/30/19 11:20 - Laboratory Result Diagrams: 07/30/19 12:10 07/30/19 12:10 Laboratory results interpreted by me: 07/30/19 07/30/19 07/30/19 11:28 12:10 12:10 Hgb 11.5 L Hct 34.9 L Carbon Dioxide 21 L Calcium 10.4 H Ur Leukocyte Esterase SMALL H Salicylates < 1.0 L Acetaminophen < 10 L Discharge - Discharge Clinical Impression: Suicidal ideation Condition: Stable Disposition: OTHER Referrals: GISSEL PEREZ FNP-C [Primary Care Provider] - Follow up as needed
--- NOTE | 2019-07-30 16:46 | PSYCHOLOGICAL NOTE ---
Psych Note - Psych Note Date seen by psych provider: 07/30/19 Time seen by psych provider: 14:20 Psych Note: Reason for Consult: Suicidal Ideation 33-year-old female presented to ED for complaint of suicidal thoughts. She did go to [facility] this morning and she states she told the doctor that she was having thoughts of suicide. Patient reports that she has been feeling bad for a few days but that we woke up this morning with passive suicidal ideation. She denies plan, means or intent. She [facility] does not have any available beds. Patient is alert and orientated to person, place, time and circumstance. Mood and affect are blunted. Patient endorses passive suicidal ideation i.e. no plans means or intent. Patient denies homicidal ideation. Delusions are absent and behaviors congruent with an intact reality based presentation the ie organized and linear thought process. Eye contact is well-maintained. Conversational speech is within normal rate, tone and prosody. Intellectual abilities appear to be within the average range. Attention and concentration are good. Insight, judgment, impulse control are fair. Diagnosis: Substance abuse; Klonopin Medication recommendations per [facility]'s contracted psychiatrist Dr. Sung BEARD are as follows No medication recommendations at this time Impression\plan: Patient is cleared from acute psychiatric services. Patient does not meet IVC criteria per [place] GS 122C. Dr. Choudhury was consulted to care management of this patient; attending physicians in agreement with recommendations and disposition.
[2019-07-30 18:07] VITALS: BP 126/74
--- NOTE | 2019-07-30 18:34 | EKG REPORT ---
SEVERITY:- BORDERLINE ECG - SINUS RHYTHM NONSPECIFIC LATERAL ST-T CHANGES : Confirmed by: Dustin Andres MD 30-Jul-2019 18:33:29
== END 2019-07-30 18:08 | disposition home or self-care (01) ==
LOC: ER 11:11
DX: R45.851 Suicidal ideations (principal); Z72.0 Tobacco use; I10 Essential (primary) hypertension; Z88.8 Allergy status to other drugs, medicaments and biological substances; Z88.6 Allergy status to analgesic agent; Z88.5 Allergy status to narcotic agent
CPT/HCPCS: 36415; 80053; 80307; 81001; 85025; 93005; 93010; 99285

== ENCOUNTER 2019-08-03 23:50 | Emergency (ER) | payer SELFPAY ==
[2019-08-04 01:13] LABS: ABSOLUTE EOSINOPHILS # (AUTO) 0.2 10^3/uL (0.0-0.6); ABSOLUTE MONOCYTES (AUTO) 0.8 10^3/uL (0.1-1.4); ABSOLUTE NEUT (AUTO) 5.3 10^3/uL (1.7-8.2); BASOPHILS % (AUTO) 0.5 % (0-2); EOSINOPHILS % (AUTO) 2.7 % (0-6); HEMATOCRIT 33.2 % (36.0-47.0); HEMOGLOBIN 11.1 g/dL (12.0-15.5); LYMPHOCYTES % (AUTO) 23.4 % (13-45); MEAN CORPUSCULAR HGB CONC 33.6 g/dL (32.0-36.0); MEAN CORPUSCULAR VOLUME 86 fl (80-97); MONOCYTES % (AUTO) 9.4 % (3-13); PLATELET COUNT 195 10^3/uL (150-450); RED BLOOD COUNT 3.84 10^6/uL (3.72-5.28); RED CELL DISTRIBUTION WIDTH 13.2 % (11.5-14.0); TOTAL CELLS COUNTED % (AUTO) 100 %; WHITE BLOOD COUNT 8.3 10^3/uL (4.0-10.5)
[2019-08-04 01:23] LABS: ALBUMIN 4.9 g/dL (3.5-5.0); ALKALINE PHOSPHATASE 61 U/L (38-126); ANION GAP 16 (5-19); ASPARTATE AMINO TRANSFERASE 24 U/L (14-36); BILIRUBIN,DIRECT 0.1 mg/dL (0.0-0.4); BILIRUBIN,TOTAL 0.6 mg/dL (0.2-1.3); BLOOD UREA NITROGEN 14 mg/dL (7-20); CARBON DIOXIDE 23 mmol/L (22-30); CHLORIDE 100 mmol/L (98-107); GLUCOSE 105 mg/dL (75-110); POTASSIUM 3.5 mmol/L (3.6-5.0); TOTAL PROTEIN 8.5 g/dL (6.3-8.2)
[2019-08-04 05:49] LABS: APPEARANCE,URINE SLIGHTLY-CLOUDY; BILIRUBIN,URINE NEGATIVE (NEGATIVE); COLOR,URINE YELLOW; GLUCOSE, URINE NEGATIVE (NEGATIVE); KETONES,URINE NEGATIVE (NEGATIVE); LEUKOCYTE ESTERASE,URINE LARGE (NEGATIVE); NITRITE,URINE NEGATIVE (NEGATIVE); PROTEIN,URINE NEGATIVE (NEGATIVE); URINE SPECIFIC GRAVITY 1.015; UROBILINOGEN,URINE NEGATIVE mg/dL (<2.0)
--- NOTE | 2019-08-04 08:27 | ER Document Report ---
ED General - General Chief Complaint: Vomiting Stated Complaint: VOMITING/BOWEL ISSUE Time Seen by Provider: 08/04/19 08:07 Primary Care Provider: ZEE JACKSON MD [ACTIVE STAFF] - Follow up in 1 week (for OBGYN follow up) TRAVEL OUTSIDE OF THE [place] IN LAST 30 DAYS: No - HPI Notes: 33 year old female to the ED with C/O NV, dehydration, constipation, and . States that she is about 8 weeks and has had a confirmed IUP with [facility]. States that she is currently at [facility] for psychiatric reasons and they sent her here when they could not get her vomiting and constipation under control. States that since she has been here, she has had a bowel movement. She continues to feel nauseated and has not been able to keep anything down. Denies fevers, chills, vag discharge, vag bleeding. She is a . - Related Data Allergies/Adverse Reactions: ketorolac tromethamine [From Toradol] Allergy (Verified 08/04/19 07:32) meperidine HCl [From Demerol] Allergy (Verified 08/04/19 07:32) metoclopramide HCl [From Reglan] Allergy (Verified 08/04/19 07:32) morphine [Morphine] Allergy (Verified 08/04/19 07:32) nalbuphine [From Nubain] Allergy (Verified 08/04/19 07:32) Hives prochlorperazine [From Compazine] Allergy (Verified 08/04/19 07:32) Hives tramadol [Tramadol] Allergy (Verified 08/04/19 07:32) Hives lamotrigine [From Lamictal] Adverse Reaction (Verified 08/04/19 07:32) Hives ondansetron HCl [From Zofran] Adverse Reaction (Verified 08/04/19 07:32) VOMITING Home Medications: states many but unk names Past Medical History - General Information source: Patient - Social History Smoking Status: Never Smoker Chew tobacco use (# tins/day): No Frequency of alcohol use: None Drug Abuse: None Lives with: Spouse/Significant other Family History: Reviewed & Not Pertinent, Arthritis, DM, Hyperlipidemia, Hypertension Patient has suicidal ideation: No - depressed but not suicidal Patient has homicidal ideation: No - Past Medical History Cardiac Medical History: Reports: Hx Hypertension Neurological Medical History: Reports: Hx Migraine Renal/ Medical History: Denies: Hx Peritoneal Dialysis Musculoskeletal Medical History: Reports Hx Musculoskeletal Trauma Psychiatric Medical History: Reports: Hx Anxiety, Hx Attention Deficit Hyperactivity Disorder, Hx Bipolar Disorder - Bipolar 1, Hx Depression, Hx Post Traumatic Stress Disorder Traumatic Medical History: Reports: Hx Fractures - nose Past Surgical History: Reports: Hx Abdominal Surgery - LAPROSCOPY, Hx Gynecologic Surgery - d&c, lap for endometriosis, Hx Nose Surgery - Reconstruction for fracture, Other - facial reconstruction - Immunizations Immunizations up to date: Yes Hx Diphtheria, Pertussis, Tetanus Vaccination: Yes - 2010 Review of Systems - Review of Systems Constitutional: denies: Chills, Fever EENT: No symptoms reported Cardiovascular: denies: Chest pain, Palpitations, Heart racing, Syncope, Dizziness, Lightheaded Respiratory: denies: Cough, Short of breath Gastrointestinal: Nausea, Vomiting. denies: Abdominal pain, Diarrhea Genitourinary: Frequency. denies: Burning, Dysuria, Incontinence, Pain Female Genitourinary: . denies: Vaginal discharge, Vaginal bleeding, Vaginal odor Musculoskeletal: No symptoms reported Skin: No symptoms reported Hematologic/Lymphatic: No symptoms reported Neurological/Psychological: No symptoms reported -: Yes All other systems reviewed and negative Physical Exam - Vital signs Vitals: Temp Pulse Resp BP Pulse Ox 97.4 F 97 20 128/79 H 100 08/03/19 23:54 08/03/19 23:54 08/03/19 23:54 08/03/19 23:54 08/03/19 23:54 Interpretation: Normal - General General appearance: Appears well, Alert In distress: None - HEENT Head: Normocephalic, Atraumatic Eyes: Normal Pupils: PERRL Ears: Normal External canal: Normal Tympanic membrane: Normal Sinus: Normal Nasal: Normal Mouth/Lips: Normal Mucous membranes: Dry Pharynx: Normal. No: Potential airway comprom. Neck: Normal, Supple. No: Lymphadenopathy, Meningismus - Respiratory Respiratory status: No respiratory distress Chest status: Nontender. No: Accessory muscle use Breath sounds: Normal. No: Rales, Rhonchi, Stridor, Wheezing Chest palpation: Normal - Cardiovascular Rhythm: Regular Heart sounds: Normal auscultation Murmur: No - Abdominal Inspection: Normal Distension: No distension Bowel sounds: Normal Tenderness: Nontender. No: Tender, McBurney's point, Matos's sign, Guarding, Rebound Organomegaly: No organomegaly Notes: HEART RATE AT PUBIC SYMPHYSIS IS 140 - Back Back: Normal, Nontender. No: CVA tenderness - Neurological Neuro grossly intact: Yes Cognition: Normal Orientation: AAOx4 Ron Coma Scale Eye Opening: Spontaneous Ron Coma Scale Verbal: Oriented Ron Coma Scale Motor: Obeys Commands Ron Coma Scale Total: 15 Speech: Normal Cranial nerves: Normal Cerebellar coordination: Normal Motor strength normal: LUE, RUE, LLE, RLE Additional motor exam normals: Equal newspaper carrier. No: Pronator drift Sensory: Normal - Psychological Associated symptoms: Normal affect, Normal mood - Skin Skin Temperature: Warm Skin Moisture: Dry Skin Color: Normal Course - Re-evaluation Re-evalutation: 08/04/19 Pt is much improved after two bags of fluids. She has not vomited since we have begun treatment on her. She has been able to tolerate ice chips and popsicles. She did complain of a toothache and was given Tylenol and viscous lidocaine. She has a dental leelee, but no dental abscess. Will plan to discharge home with phenergan suppositories -- she states this is the only thing that works for her in hyperemesis. She will go back to [place]. Impression; UTI, hyperemesis, dental pain. Patient is much better since treatment here -- tolerating PO. [employer] follow up. - Vital Signs Vital signs: Temp Pulse Resp BP Pulse Ox 98.7 F 90 16 126/75 H 100 08/04/19 13:45 08/04/19 13:45 08/04/19 13:45 08/04/19 13:45 08/04/19 13:45 - Laboratory Result Diagrams: 08/04/19 00:56 08/04/19 00:56 Laboratory results interpreted by me: 08/04/19 08/04/19 08/04/19 00:56 00:56 05:16 Hgb 11.1 L Hct 33.2 L Potassium 3.5 L Total Protein 8.5 H Beta HCG, Quant 140902.00 H Ur Leukocyte Esterase LARGE H Discharge - Discharge Clinical Impression: Hyperemesis gravidarum, Dental caries, Pain, dental UTI (urinary tract infection) Qualifiers: Urinary tract infection type: acute cystitis Hematuria presence: without hematuria Qualified Code(s): N30.00 - Acute cystitis without hematuria Condition: Stable Disposition: HOME, SELF-CARE Instructions: Urinary Tract Infection ([facility]) Additional Instructions: PUSH FLUIDS. MAY TRY VERY BLAND DIET OF BANANAS, RICE, APPLESAUCE, and TOAST/CRACKERS. COMPLETE ANTIBIOTICS, TAKE ANTI NAUSEA MEDICINE PRESCRIBED. Prescriptions: Cephalexin Monohydrate [Keflex 500 mg Capsule] 500 mg PO BID #14 capsule Promethazine HCl [Phenergan 25 mg Supp.rect] 1 supp NC Q6H #15 supp.rect Referrals: ZEE JACKSON MD [ACTIVE STAFF] - Follow up in 1 week (for OBGYN follow up)
[2019-08-04] MEDS ORDERED: DIPHENHYDRAMINE HCL 50 MG/ML VIAL IV ONE ×2 (09:25→11:12)
[2019-08-04] MEDS ORDERED: CEFTRIAXONE 1 GM/D5W RTU 1 GM/50 ML RTUPB IV ONE (09:25)
[2019-08-04] MEDS ORDERED: PROMETHAZINE HCL INJ 25 MG/1 ML VIAL IV ONE (09:25)
[2019-08-04] MEDS: NORMAL SALINE 1000 ML 1,000 ML IV PRN ×2 (09:51→11:28)
[2019-08-04] MEDS ORDERED: PROMETHAZINE HCL INJ 50 MG/1 ML VIAL IM PRN (11:12)
[2019-08-04] MEDS ORDERED: FAMOTIDINE INJ/PF 20 MG/2 ML SDV IV ONE (11:12)
[2019-08-04] MEDS ORDERED: ACETAMINOPHEN 325 MG TABLET PO ONE ×2 (11:13→12:09)
[2019-08-04] MEDS ORDERED: LIDOCAINE 2% VISCOUS SOLN 20 ML UDCUP PO ONE (12:09)
[2019-08-04 13:47] VITALS: BP 126/75
== END 2019-08-04 13:47 | disposition home or self-care (01) ==
LOC: ER 23:50
DX: O23.11 Infections of bladder in pregnancy, first trimester (principal); N30.00 Acute cystitis without hematuria; O21.0 Mild hyperemesis gravidarum; K02.9 Dental caries, unspecified; E86.0 Dehydration; K59.00 Constipation, unspecified; Z3A.08 8 weeks gestation of pregnancy; Z88.6 Allergy status to analgesic agent
CPT/HCPCS: 96376; 99284; 96361; 96375; 96365; 36415; 84702; 83690; 85025; 80053; 81001; J1200; J3490; J2550 ×2; J7030; S0028; J0696

== ENCOUNTER 2019-08-27 09:27 | Emergency (ER) | payer MEDICAID ==
[2019-08-27] MEDS ORDERED: METOCLOPRAMIDE HCL INJ/PF 10 MG/2 ML SDV IV ONE (10:08)
[2019-08-27] MEDS ORDERED: NORMAL SALINE 1000 ML 1,000 ML IV ONE (10:08)
[2019-08-27] MEDS ORDERED: PROMETHAZINE HCL INJ 25 MG/1 ML VIAL IM ONE (10:10)
[2019-08-27] MEDS ORDERED: DIPHENHYDRAMINE HCL 50 MG/ML VIAL IV ONE (10:10)
--- NOTE | 2019-08-27 10:12 | ER Document Report ---
ED Medical Screen (RME) - General Chief Complaint: Nausea/Vomiting Stated Complaint: NAUSEA,VOMITING Time Seen by Provider: 08/27/19 10:00 Notes: Patient is a 33-year-old female G8, P6 who presents emergency department with a chief complaint of vomiting. Patient reports she is maybe about 9 to 10 weeks . Patient reports her estimated due date is March 16. Patient reports she has not followed up with [facility] but does have an appointment with them on the . Patient reports around midnight last night she started vomiting. Patient has history of hyperemesis. Patient reports she is vomited about 8 times and feels like she is dehydrated. Patient reports she attempted to use a Phenergan suppository but then had diarrhea afterwards. TRAVEL OUTSIDE OF THE [place] IN LAST 30 DAYS: No - Related Data Allergies/Adverse Reactions: ketorolac tromethamine [From Toradol] Allergy (Verified 08/04/19 07:32) meperidine HCl [From Demerol] Allergy (Verified 08/04/19 07:32) metoclopramide HCl [From Reglan] Allergy (Verified 08/04/19 07:32) morphine [Morphine] Allergy (Verified 08/04/19 07:32) nalbuphine [From Nubain] Allergy (Verified 08/04/19 07:32) Hives prochlorperazine [From Compazine] Allergy (Verified 08/04/19 07:32) Hives tramadol [Tramadol] Allergy (Verified 08/04/19 07:32) Hives lamotrigine [From Lamictal] Adverse Reaction (Verified 08/04/19 07:32) Hives ondansetron HCl [From Zofran] Adverse Reaction (Verified 08/04/19 07:32) VOMITING Past Medical History - Social History Frequency of alcohol use: None Drug Abuse: None Family history: None - Past Medical History Cardiac Medical History: Reports: Hx Hypertension Neurological Medical History: Reports: Hx Migraine Renal/ Medical History: Denies: Hx Peritoneal Dialysis Musculoskeltal Medical History: Reports Hx Musculoskeletal Trauma Psychiatric Medical History: Reports: Hx Anxiety, Hx Attention Deficit Hyperactivity Disorder, Hx Bipolar Disorder - Bipolar 1, Hx Depression, Hx Post Traumatic Stress Disorder Traumatic Medical History: Reports: Hx Fractures - nose Past Surgical History: Reports: Hx Abdominal Surgery - LAPROSCOPY, Hx Gynecologic Surgery - d&c, lap for endometriosis, Hx Nose Surgery - Reconstruction for fracture, Other - facial reconstruction - Immunizations Immunizations up to date: Yes Hx Diphtheria, Pertussis, Tetanus Vaccination: Yes - 2010 Physical Exam - Vital signs Vitals: Temp Pulse Resp BP Pulse Ox 99.0 F 101 H 18 137/85 H 100 08/27/19 09:37 08/27/19 09:37 08/27/19 09:37 08/27/19 09:37 08/27/19 09:37 - Abdominal Inspection: Normal Distension: No distension Bowel sounds: Normal Tenderness: Nontender Organomegaly: No organomegaly Course - Re-evaluation Re-evalutation: 08/27/19 10:12 I have greeted and performed a rapid initial assessment of this patient. A comprehensive ED assessment and evaluation of the patient, analysis of test results and completion of the medical decision making process will be conducted by additional ED providers. - Vital Signs Vital signs: Temp Pulse Resp BP Pulse Ox 99.0 F 101 H 18 137/85 H 100 08/27/19 09:37 08/27/19 09:37 08/27/19 09:37 08/27/19 09:37 08/27/19 09:37
--- NOTE | 2019-08-27 10:34 | ER Document Report ---
ED General - General Chief Complaint: Nausea/Vomiting Stated Complaint: NAUSEA,VOMITING Time Seen by Provider: 08/27/19 10:00 Primary Care Provider: CATIA PRESCOTT PA-C [Primary Care Provider] - Follow up as needed TRAVEL OUTSIDE OF THE [place] IN LAST 30 DAYS: No - HPI Notes: 33F , she says she is a high risk patient since her last in March 2019 when she had continued intractable hyperemesis gravidarum, and then preeclampsia. She also is managed for tello and bipolar disorder by Dr. Amara Almendarez at [facility]. She is on Klonopin 1 mg 3 times a day which was filled on . She says he wrote her next prescription today because she noted that she is not going to have enough on the or he says he still cannot fill this early and wrote the prescription to start on . She says she is worried about her baby because she knows she can have withdrawals. She does not think it was stolen does not know how she is not having enough because she has been taken as prescribed she claims. H/o hyperemesis grav presents to our ED Amb for vomiting ~8x for last few hours since midnight, last meal was yesterday. Currently EGA per LMP in June with expected due date 03/16/20. reports has [employer] appt 08/31/19, has not had an ultrasound yet. Patient reports she is vomited about 8 times . Patient reports she attempted to use a Phenergan suppository but then had diarrhea afterwards. - Related Data Allergies/Adverse Reactions: ketorolac tromethamine [From Toradol] Allergy (Verified 08/28/19 10:43) meperidine HCl [From Demerol] Allergy (Verified 08/28/19 10:43) metoclopramide HCl [From Reglan] Allergy (Verified 08/28/19 10:43) morphine [Morphine] Allergy (Verified 08/28/19 10:43) nalbuphine [From Nubain] Allergy (Verified 08/28/19 10:43) Hives prochlorperazine [From Compazine] Allergy (Verified 08/28/19 10:43) Hives tramadol [Tramadol] Allergy (Verified 08/28/19 10:43) Hives lamotrigine [From Lamictal] Adverse Reaction (Verified 08/28/19 10:43) Hives ondansetron HCl [From Zofran] Adverse Reaction (Verified 08/28/19 10:43) VOMITING Past Medical History - Social History Smoking Status: Current Every Day Smoker Frequency of alcohol use: None Drug Abuse: None Family History: Reviewed & Not Pertinent, Arthritis, DM, Hyperlipidemia, Hypertension Patient has suicidal ideation: No Patient has homicidal ideation: No - Past Medical History Cardiac Medical History: Reports: Hx Hypertension Neurological Medical History: Reports: Hx Migraine Renal/ Medical History: Denies: Hx Peritoneal Dialysis Musculoskeletal Medical History: Reports Hx Musculoskeletal Trauma Psychiatric Medical History: Reports: Hx Anxiety, Hx Attention Deficit H yperactivity Disorder, Hx Bipolar Disorder - Bipolar 1, Hx Depression, Hx Post Traumatic Stress Disorder Traumatic Medical History: Reports: Hx Fractures - nose Past Surgical History: Reports: Hx Abdominal Surgery - LAPROSCOPY, Hx Gynecologic Surgery - d&c, lap for endometriosis, Hx Nose Surgery - Reconstruction for fracture, Other - facial reconstruction - Immunizations Immunizations up to date: Yes Hx Diphtheria, Pertussis, Tetanus Vaccination: Yes - 2010 Review of Systems - Review of Systems Constitutional: See HPI. denies: Chills, Fever, Weight gain, Weight loss EENT: No symptoms reported Cardiovascular: No symptoms reported Respiratory: No symptoms reported Gastrointestinal: Vomiting, Poor appetite, Poor fluid intake. denies: Blood streaked bowels, Blood in vomit, Black stools, Rectal bleeding Genitourinary: No symptoms reported. denies: Burning, Dysuria, Frequency, Flank pain, Urgency, Retention Female Genitourinary: No symptoms reported, Last menstrual period - jul 10. denies: Vaginal discharge Musculoskeletal: No symptoms reported Skin: No symptoms reported Hematologic/Lymphatic: No symptoms reported Neurological/Psychological: No symptoms reported, Anxiety, Headaches. denies: Hallucinations, Sensory change, Homicidal ideation, Weakness, Gait changes, Seizure, Lost consciousness, Speech impairment, Suicidal ideation, Tingling, Tremor Physical Exam - Vital signs Vitals: Temp Pulse Resp BP Pulse Ox 99.0 F 101 H 18 137/85 H 100 08/27/19 09:37 08/27/19 09:37 08/27/19 09:37 08/27/19 09:37 08/27/19 09:37 Interpretation: Normal - General General appearance: Appears well, Alert - HEENT Head: Normocephalic, Atraumatic Eyes: Normal Pupils: PERRL - Respiratory Respiratory status: No respiratory distress Chest status: Nontender Breath sounds: Normal Chest palpation: Normal - Cardiovascular Rhythm: Regular Heart sounds: Normal auscultation Murmur: No - Abdominal Inspection: Normal Distension: No distension Bowel sounds: Normal Tenderness: Nontender Organomegaly: No organomegaly - Back Back: Normal, Nontender - Extremities General upper extremity: Normal inspection, Nontender, Normal color, Normal ROM, Normal temperature General lower extremity: Normal inspection, Nontender, Normal color, Normal ROM, Normal temperature, Normal weight bearing. No: Yovani's sign - Neurological Neuro grossly intact: Yes Cognition: Normal Orientation: AAOx4 [place] Coma Scale Eye Opening: Spontaneous Ron Coma Scale Verbal: Oriented [place] Coma Scale Motor: Obeys Commands Ron Coma Scale Total: 15 Speech: Normal Motor strength normal: LUE, RUE, LLE, RLE Sensory: Normal - Psychological Associated symptoms: Normal affect, Normal mood - Skin Skin Temperature: Warm Skin Moisture: Dry Skin Color: Normal Course - Re-evaluation Re-evalutation: 08/27/19 12:46 Bedside transabdominal ultrasound showed single intrauterine gestation, heart rate 140s, grossly consistent with her prior given EGA today of around 11 weeks ++ movement Patient reports despite the initial Phenergan and IV Benadryl which she says by the way she always gets 50 IV Benadryl that I can look in her chart and see this for her migraines which she just now mentions she is having now. She understands I sometimes use Benadryl as part of my migraine cocktail but we can make sure she is not vomiting when she has a minute and then do an additional p.o. if needed but will first try some magnesium and appropriate doses of acetaminophen, Reglan. She says she is allergic to Reglan but takes Phenergan and Compazine fine. She says she gets hives with that. Therefore added a second order of meds for her migraine of the magnesium Tylenol and another 25 of Phenergan. We will still perform pelvic exam since she reported spotting last night. She think she has a yeast infection since she was on Keflex for UTI over a week ago. No evidence of yeast infection or bacterial vaginosis. Patient is currently calling her provider about her running out of her Klonopin too early. 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 On your pelvic exam though I did see some irritation of the cervix and greenish- white discharge therefore I will without knowing the results of the gonorrhea or chlamydia testing today go ahead and be careful and treat you for those 2 things right now. We will treat you for yeast or vaginal bacterial vaginitis if those, positive on the wet mount swab we did in the pelvic exam. Also while you are waiting to hear back if the gonorrhea chlamydia is negative or positive then you you should refrain from any sexual intercourse or vaginal mucosal intercourse or contact or anal intercourse or contact until you know if it is negative or positive. They will call you if it is positive. But in the meantime please ask your partner to refrain from any penile anal contact at all until you know. If it does come back positive he is well and is refrain from any sexual intercourse further and get treated for both of these diseases. If this test does come back positive, for you in that must be followed up soon by the [employer] doctor to ensure that it is clearing. You do have an infection of the urine whi ch is a good thing today. On ultrasound today in the ER you have a viable fetus with good heart rate around 140s and good movement, but you still need to keep your appointment on the for formal dating and to establish care. Regarding the benzodiazepine, Klonopin, the prescriber must be the one to talk to you about plan for bridging you if you have run out of your medication too early. This is really up to you in the future to always know where your medication is not sure it does not get lost or stolen because unfortunately as providers we are limited by the law and how much we can prescribe about these medicines and it is dangerous if you are started to take more of this medicine than needed. This is not a great medication since you get tolerant to it and then of course as you know if you stop immediately you can have dangerous withdrawals. Therefore talk to Dr. Almendarez at [facility] about monitoring or plan in the 2 days until you can fill your prescription on the You do not have any evidence of yeast or trichomonas from your wet prep or bacterial vaginosis. Referrals: CATIA PRESCOTT PA-C [Primary Care Provider] - Follow up as needed
[2019-08-27 10:36] LABS: APPEARANCE,URINE SLIGHTLY-CLOUDY; BILIRUBIN,URINE NEGATIVE (NEGATIVE); COLOR,URINE YELLOW; GLUCOSE, URINE NEGATIVE (NEGATIVE); KETONES,URINE NEGATIVE (NEGATIVE); LEUKOCYTE ESTERASE,URINE TRACE (NEGATIVE); NITRITE,URINE NEGATIVE (NEGATIVE); PROTEIN,URINE NEGATIVE (NEGATIVE); URINE SPECIFIC GRAVITY 1.013; UROBILINOGEN,URINE NEGATIVE mg/dL (<2.0)
[2019-08-27 11:51] LABS: ABSOLUTE EOSINOPHILS # (AUTO) 0.2 10^3/uL (0.0-0.6); ABSOLUTE LYMPHOCYTES (AUTO) 1.3 10^3/uL (0.5-4.7); ABSOLUTE MONOCYTES (AUTO) 0.5 10^3/uL (0.1-1.4); ABSOLUTE NEUT (AUTO) 3.2 10^3/uL (1.7-8.2); BASOPHILS % (AUTO) 0.1 % (0-2); EOSINOPHILS % (AUTO) 4.3 % (0-6); HEMATOCRIT 30.9 % (36.0-47.0); HEMOGLOBIN 10.3 g/dL (12.0-15.5); LYMPHOCYTES % (AUTO) 25.4 % (13-45); MEAN CORPUSCULAR HEMOGLOBIN 29.2 pg (27.0-33.4); MEAN CORPUSCULAR HGB CONC 33.4 g/dL (32.0-36.0); MEAN CORPUSCULAR VOLUME 87 fl (80-97); MONOCYTES % (AUTO) 8.6 % (3-13); PLATELET COUNT 189 10^3/uL (150-450); RED BLOOD COUNT 3.54 10^6/uL (3.72-5.28); SEGMENTED NEUTROPHILS % (AUTO) 61.6 % (42-78); TOTAL CELLS COUNTED % (AUTO) 100 %; WHITE BLOOD COUNT 5.3 10^3/uL (4.0-10.5)
[2019-08-27] MEDS ORDERED: RINGERS SOLUTION,LACTATED 1,000 ML IV ONE (12:07)
[2019-08-27] MEDS ORDERED: ACETAMINOPHEN 325 MG TABLET PO PRN (12:07)
[2019-08-27] MEDS ORDERED: METOCLOPRAMIDE HCL INJ/PF 10 MG/2 ML SDV IV PRN (12:08)
[2019-08-27 12:14] LABS: ALBUMIN 4.5 g/dL (3.5-5.0); ALKALINE PHOSPHATASE 65 U/L (38-126); ANION GAP 11 (5-19); ASPARTATE AMINO TRANSFERASE 30 U/L (14-36); BILIRUBIN,DIRECT 0.2 mg/dL (0.0-0.4); BILIRUBIN,TOTAL 0.3 mg/dL (0.2-1.3); BLOOD UREA NITROGEN 13 mg/dL (7-20); CALCIUM 9.8 mg/dL (8.4-10.2); CARBON DIOXIDE 24 mmol/L (22-30); CHLORIDE 102 mmol/L (98-107); GLUCOSE 91 mg/dL (75-110); POTASSIUM 3.6 mmol/L (3.6-5.0)
[2019-08-27] MEDS ORDERED: MAGNESIUM SULFATE/D5W 1 GM/100 ML RTUPB IV ONE ×2 (12:43→16:00)
[2019-08-27] MEDS ORDERED: DIPHENHYDRAMINE HCL 25 MG CAPSULE PO ONE ×3 (12:44→16:00)
[2019-08-27] MEDS ORDERED: PROMETHAZINE HCL INJ 25 MG/1 ML VIAL IV ONE ×3 (12:45→16:00)
[2019-08-27] MEDS ORDERED: CEFTRIAXONE INJ 250 MG VIAL IM ONE (14:08)
[2019-08-27] MEDS ORDERED: AZITHROMYCIN 1 GM SUSP PACKET PO ONE (14:09)
[2019-08-27 14:35] LABS: T.VAGINALIS (WET MOUNT) NO TRICHOMONAS SEEN; YEAST (WET MOUNT) NO YEAST SEEN
[2019-08-27 14:36] LABS: WBCS (WET MOUNT) FEW WBCS SEEN
[2019-08-27] MEDS ORDERED: LIDOCAINE 1% INJ-PF (10 MG/ML) 30 ML SDV ONE (14:36)
[2019-08-27] MEDS ORDERED: ACETAMINOPHEN 325 MG TABLET PO ONE (15:47)
[2019-08-27 15:50] VITALS: BP 126/76
[2019-08-27] MEDS: MAGNESIUM SULFATE/D5W 1 GM/100 ML RTUPB IV ONE ×2 (16:06→16:22)
[2019-08-27 17:28] LABS: CHLAM PCR NOT DETECTED (NOT DETECT)
== END 2019-08-27 16:29 | disposition home or self-care (01) ==
LOC: ER 09:27
DX: O23.511 Infections of cervix in pregnancy, first trimester (principal); O21.9 Vomiting of pregnancy, unspecified; O99.351 Diseases of the nervous system complicating pregnancy, first trimester; G43.909 Migraine, unspecified, not intractable, without status migrainosus; O99.331 Smoking (tobacco) complicating pregnancy, first trimester; F17.200 Nicotine dependence, unspecified, uncomplicated; O16.1 Unspecified maternal hypertension, first trimester; O26.891 Other specified pregnancy related conditions, first trimester; R63.0 Anorexia; O99.341 Other mental disorders complicating pregnancy, first trimester; F31.9 Bipolar disorder, unspecified; F41.9 Anxiety disorder, unspecified; Z3A.00 Weeks of gestation of pregnancy not specified; Z79.899 Other long term (current) drug therapy; Z88.8 Allergy status to other drugs, medicaments and biological substances; Z88.6 Allergy status to analgesic agent; Z88.5 Allergy status to narcotic agent
CPT/HCPCS: 99284; 96372; 96361; 96374; 96375; 36415; 87210; 83690; 85025; 80053; 81001; 87491; 87591; J3490 ×3; J1200; Q0144; J2550; J7030; J0696; J3475

== ENCOUNTER 2019-08-28 10:34 | Emergency (ER) | payer MEDICAID ==
[2019-08-28] MEDS ORDERED: PROMETHAZINE HCL INJ 25 MG/1 ML VIAL IM ONE (10:49)
[2019-08-28] MEDS ORDERED: NORMAL SALINE 1000 ML 1,000 ML IV ONE (10:50)
[2019-08-28] MEDS ORDERED: DIPHENHYDRAMINE HCL 50 MG/ML VIAL IV ONE (10:50)
--- NOTE | 2019-08-28 10:53 | ER Document Report ---
ED Medical Screen (RME) - General Chief Complaint: Vomiting Stated Complaint: VOMITING,RIGHT HAND PAIN/SWELLING Time Seen by Provider: 08/28/19 10:47 Primary Care Provider: CATIA PRESCOTT PA-C [Primary Care Provider] - Follow up as needed Mode of Arrival: Ambulatory Information source: Patient Notes: 33-year-old female presents to ED for swelling to the right hand from an IV she got yesterday. She states she followed up with her primary care and they sent her to the emergency room due to the infiltration. She states she is having nausea and vomiting and she states she is out of her Klonopin and needs to Klonopin. Patient is about 11 weeks . I have greeted and performed a rapid initial assessment of this patient. A comprehensive ED assessment and evaluation of the patient, analysis of test results and completion of medical decision making process will be conducted by an additional ED providers. TRAVEL OUTSIDE OF THE [place] IN LAST 30 DAYS: No - Related Data Allergies/Adverse Reactions: ketorolac tromethamine [From Toradol] Allergy (Verified 08/28/19 10:43) meperidine HCl [From Demerol] Allergy (Verified 08/28/19 10:43) metoclopramide HCl [From Reglan] Allergy (Verified 08/28/19 10:43) morphine [Morphine] Allergy (Verified 08/28/19 10:43) nalbuphine [From Nubain] Allergy (Verified 08/28/19 10:43) Hives prochlorperazine [From Compazine] Allergy (Verified 08/28/19 10:43) Hives tramadol [Tramadol] Allergy (Verified 08/28/19 10:43) Hives lamotrigine [From Lamictal] Adverse Reaction (Verified 08/28/19 10:43) Hives ondansetron HCl [From Zofran] Adverse Reaction (Verified 08/28/19 10:43) VOMITING Past Medical History - Social History Family history: None - Past Medical History Cardiac Medical History: Reports: Hx Hypertension Neurological Medical History: Reports: Hx Migraine Renal/ Medical History: Denies: Hx Peritoneal Dialysis Musculoskeltal Medical History: Reports Hx Musculoskeletal Trauma Psychiatric Medical History: Reports: Hx Anxiety, Hx Attention Deficit Hyperactivity Disorder, Hx Bipolar Disorder - Bipolar 1, Hx Depression, Hx Post Traumatic Stress Disorder Traumatic Medical History: Reports: Hx Fractures - nose Past Surgical History: Reports: Hx Abdominal Surgery - LAPROSCOPY, Hx Gynecologic Surgery - d&c, lap for endometriosis, Hx Nose Surgery - Reconstruction for fracture, Other - facial reconstruction - Immunizations Immunizations up to date: Yes Hx Diphtheria, Pertussis, Tetanus Vaccination: Yes - 2010 Physical Exam - Vital signs Vitals: Temp Pulse Resp BP Pulse Ox 97.7 F 93 16 140/82 H 100 08/28/19 10:38 08/28/19 10:38 08/28/19 10:38 08/28/19 10:38 08/28/19 10:38 Course - Vital Signs Vital signs: Temp Pulse Resp BP Pulse Ox 97.7 F 93 16 140/82 H 100 08/28/19 10:38 08/28/19 10:38 08/28/19 10:38 08/28/19 10:38 08/28/19 10:38 Doctor's Discharge - Discharge Referrals: CATIA PRESCOTT PA-C [Primary Care Provider] - Follow up as needed
[2019-08-28 11:23] LABS: APPEARANCE,URINE CLEAR; BILIRUBIN,URINE NEGATIVE (NEGATIVE); COLOR,URINE YELLOW; GLUCOSE, URINE NEGATIVE (NEGATIVE); KETONES,URINE NEGATIVE (NEGATIVE); PROTEIN,URINE NEGATIVE (NEGATIVE); URINE SPECIFIC GRAVITY 1.016; UROBILINOGEN,URINE NEGATIVE mg/dL (<2.0)
--- NOTE | 2019-08-28 11:39 | ER Document Report ---
ED General - General Chief Complaint: Nausea/Vomiting Stated Complaint: VOMITING,RIGHT HAND PAIN/SWELLING Time Seen by Provider: 08/28/19 10:47 Primary Care Provider: CATIA PRESCOTT PA-C [Primary Care Provider] - Follow up as needed Mode of Arrival: Ambulatory TRAVEL OUTSIDE OF THE [place] IN LAST 30 DAYS: No - HPI Notes: 33f who actually I saw in the ED yesterday but today presents for she says she was told to come to the ED from [facility] [address] because of her hand being swollen still. Yesterday when I was treating and seeing patient, we had an IV in her superficial dorsal hand veins which did infiltrate after starting the second bag of fluids, LR.therefore she did not receive hardly any of this second bag. Along with the mild swelling around the Tegaderm and the IV infiltration we also had noted a few hives which she was scratching. We had given her Benadryl p.o. and no steroids given that she is . Her hand swelling and hives, had gone down and then abated respectively after we gave her the second dose of Benadryl in the ED and had stopped the IV infusion. She also had an area less indurated with few hives around a Band-Aid on her contralateral upper extremity, L flexor forearm surface. T she has a swelling had gone down some but seems to have persisted in the urticaria and itching has abated completely. The left arm lesions had resolved and not returned. She denies any other new trauma to the hand or any trouble breathing or coughing or abdominal pain or diarrhea. She says she has not been vomiting but just does not want to even eat anything because she feels nauseous. She denies any abdominal cramping or vaginal bleeding. - Related Data Allergies/Adverse Reactions: ketorolac tromethamine [From Toradol] Allergy (Verified 09/04/19 17:42) meperidine HCl [From Demerol] Allergy (Verified 09/04/19 17:42) metoclopramide HCl [From Reglan] Allergy (Verified 09/04/19 17:42) morphine [Morphine] Allergy (Verified 09/04/19 17:42) nalbuphine [From Nubain] Allergy (Verified 09/04/19 17:42) Hives prochlorperazine [From Compazine] Allergy (Verified 09/04/19 17:42) Hives tramadol [Tramadol] Allergy (Verified 09/04/19 17:42) Hives lamotrigine [From Lamictal] Adverse Reaction (Verified 09/04/19 17:42) Hives ondansetron HCl [From Zofran] Adverse Reaction (Verified 09/04/19 17:42) VOMITING Past Medical History - General Information source: Patient - Social History Smoking Status: Unknown if Ever Smoked Family History: Reviewed & Not Pertinent, Arthritis, DM, Hyperlipidemia, Hypertension Patient has suicidal ideation: No Patient has homicidal ideation: No - Past Medical History Cardiac Medical History: Reports: Hx Hypertension Neurological Medical History: Reports: Hx Migraine Renal/ Medical History: Denies: Hx Peritoneal Dialysis Musculoskeletal Medical History: Reports Hx Musculoskeletal Trauma Psychiatric Medical History: Reports: Hx Anxiety, Hx Attention Deficit Hyperactivity Disorder, Hx Bipolar Disorder - Bipolar 1, Hx Depression, Hx Post Traumatic Stress Disorder Traumatic Medical History: Reports: Hx Fractures - nose Past Surgical History: Reports: Hx Abdominal Surgery - LAPROSCOPY, Hx Gynecologic Surgery - d&c, lap for endometriosis, Hx Nose Surgery - Reconstruction for fracture, Other - facial reconstruction - Immunizations Immunizations up to date: Yes Hx Diphtheria, Pertussis, Tetanus Vaccination: Yes - 2010 Review of Systems - Review of Systems Constitutional: No symptoms reported EENT: No symptoms reported Cardiovascular: No symptoms reported Respiratory: No symptoms reported Gastrointestinal: No symptoms reported Genitourinary: No symptoms reported Female Genitourinary: No symptoms reported Musculoskeletal: See HPI Skin: No symptoms reported Hematologic/Lymphatic: No symptoms reported Neurological/Psychological: No symptoms reported Physical Exam - Vital signs Vitals: Temp Pulse Resp BP Pulse Ox 97.7 F 93 16 140/82 H 100 08/28/19 10:38 08/28/19 10:38 08/28/19 10:38 08/28/19 10:38 08/28/19 10:38 - General General appearance: Appears well In distress: None - HEENT Head: Normocephalic, Atraumatic Eyes: Normal Pupils: PERRL - Respiratory Respiratory status: No respiratory distress Chest status: Nontender Breath sounds: Normal Chest palpation: Normal - Cardiovascular Rhythm: Regular Heart sounds: Normal auscultation Murmur: No - Abdominal Inspection: Gravid female Tenderness: Nontender Organomegaly: No organomegaly - Back Back: No: CVA tenderness, Vertebra tenderness - Extremities General lower extremity: Normal inspection Shoulder: Normal Elbow: Normal Wrist: Nontender. No: Deformity, Limited ROM, Navicular tenderness Hand: No evidence of FB, Swelling, Other - R dorsum of hand soft tissue swelling, no evidence of increased pressures w/in deeper compartment compartments of R hand. forearm compartment soft. overlying fine erythematous reticular nonpalpable skin change tracks faintly mcc up ulnar aspect distal forearm w/o assc warmth to touch. no pain w/ PROM wrist flex/ext which is full. can make fist, no wrist swelling/involvement, radial pulse b/l symm 2. bue distally warm to touch, cap refill <2s. intact sensation to light touch in all distal distributions med/rad/ulnar nerves of RUE. No: Normal, Ecchymosis, Tendon deficit - Neurological Neuro grossly intact: Yes Cognition: Normal Ron Coma Scale Verbal: Oriented [place] Coma Scale Motor: Obeys Commands - Psychological Associated symptoms: Normal mood. No: Aggressive, Agitated, Anxious, Combative, Confused, Flight of ideas, Irritable, Labile, Manic, Psychomotor agitation, Tearful, Uncooperative - Skin Skin Moisture: Dry Skin Color: Normal Course - Re-evaluation Re-evalutation: 08/28/[address] edmondson about concern for recent, yesterday, perivascular infiltration of around 12.5 mg Phenergan in the dorsum of the right hand and concern for possibility of progression and worsening since there are cases of Phenergan causing soft tissue necrosis, gangrene compartment syndrome. Obtain x-ray of the hand 2 view which I reviewed there is no evidence of gas in soft tissues which is consistent with clinical exam. Ultrasound of the right upper extremity with venous Doppler and a quick arterial Doppler assessment are within normal limits showing no evidence of thrombophlebitis or other lack of blood flow Examined patient's neurovascular status multiple times throughout her ED course here never any compromise. We had her elevate the extremity place cool compresses. Overall I think the swelling has improved some in the hours she has been observed in the ED, and she never had any evidence of compartment syndrome. Dr. Edmondson says she is to watch the extremity closely for any continued swelling or loss of sensation or change in sensation or color change or severe pain despite reliably elevating the hand. She understands the gravity of some of these reactions of Phenergan and that she and her will be watching her hand closely. We will put in a short arm splint for comfort and avoid other injury. Have instructed she can take off splint as she likes. Again today her labs urinalysis and clinical assessment of her volume status are reassuring that she has no evidence of dehydration or electrolyte abnormalities from reported daily vomiting. I expressed concern again with her regular utilization of Benadryl. Told her that today I have not seen any evidence of return of the hives that we had seen yesterday over the dorsum of her hand, the refore I suggested that she not take any more Benadryl since she had quite a bit. I spoke to the on-call [employer] doctor who said that topical steroid for 1 or 2 times in an 11-week-old EGA was fine relayed this and for the patient we placed it one time here, but I expressed that the main thing will be elevating the hand and she should not use steroids for this swelling at this point. - Vital Signs Vital signs: Temp Pulse Resp BP Pulse Ox 98.7 F 95 16 116/69 100 08/28/19 19:59 08/28/19 19:59 08/28/19 19:59 08/28/19 19:59 08/28/19 19:59 - Laboratory Result Diagrams: 08/28/19 13:05 08/28/19 13:05 Laboratory results interpreted by me: 08/28/19 08/28/19 13:05 13:05 Hgb 11.9 L Hct 35.7 L AST 38 H Total Protein 9.3 H Albumin 5.2 H Beta HCG, Quant 61053.00 H Discharge - Discharge Clinical Impression: Intravenous infiltration, Swelling of right hand, Promethazine adverse reaction Condition: Fair Disposition: HOME, SELF-CARE Additional Instructions: we had the orthopedic doctor see you today in the ED for our concern for your hand swelling since you had about 12.5 mg phenergan infiltrate into the soft tissues of your right hand and concern for possibility of progression and worsening since there are cases of Phenergan causing soft tissue necrosis, gangrene and too much pressure within the space of the hands or forearm. Thankfully today your x-ray of the hand shows no evidence of gas in soft tissues and doppler ultrasound shows no evidence of thrombophlebitis or other lack of blood flow or damage or clot. You had good neurological and vascular function of the hand. We had you elevate the hand & place cool compresses, which is the most important thing for you to continue to do over the next few days. Overall I think the swelling improved some in the hours you were been observed in the ED. Please cont to watch the hand/forearm closely for any continued swelling or loss or change in sensation or color or severe pain despite reliably elevating the hand above heart level. We put your hand and forearm in a short arm splint mainly for comfort and to avoid other injury to it. Therefore, you can take off splint as she like--either way continuing to elevate over next few day. Again today your labs urine are reassuring that you arent dehydrated or have any electrolyte abnormalities. I am concerned with your regular use of Benadryl--a medicine which can start to actually cause tello and anxiousness if taken too much. since I have not seen any return of the hives or itching on your hand we saw seen yesterday i recommend you not take any more Benadryl. I spoke to the on-call [employer] doctor who said that a one time use of the steroid cream at ~11wks is fine, but please don't use any more steroids since higher use/doses can be dangerous in . for this swelling at this point the main thing will be elevating the hand. please call your ob for f/u and your regular psychiatrist and primary docgors for follow up Referrals: CATIA PRESCOTT PA-C [Primary Care Provider] - Follow up as needed
[2019-08-28] MEDS ORDERED: DIPHENHYDRAMINE HCL 50 MG/ML VIAL IM ONE ×2 (12:32→12:42)
[2019-08-28] MEDS ORDERED: CLONAZEPAM 1 MG TABLET PO ONE ×2 (12:33→18:37)
[2019-08-28 13:20] LABS: ABSOLUTE EOSINOPHILS # (AUTO) 0.3 10^3/uL (0.0-0.6); ABSOLUTE LYMPHOCYTES (AUTO) 1.9 10^3/uL (0.5-4.7); ABSOLUTE MONOCYTES (AUTO) 0.6 10^3/uL (0.1-1.4); ABSOLUTE NEUT (AUTO) 3.9 10^3/uL (1.7-8.2); BASOPHILS % (AUTO) 0.2 % (0-2); EOSINOPHILS % (AUTO) 4.3 % (0-6); HEMATOCRIT 35.7 % (36.0-47.0); HEMOGLOBIN 11.9 g/dL (12.0-15.5); LYMPHOCYTES % (AUTO) 27.9 % (13-45); MEAN CORPUSCULAR HEMOGLOBIN 29.3 pg (27.0-33.4); MEAN CORPUSCULAR HGB CONC 33.3 g/dL (32.0-36.0); MEAN CORPUSCULAR VOLUME 88 fl (80-97); MONOCYTES % (AUTO) 9.1 % (3-13); PLATELET COUNT 222 10^3/uL (150-450); RED BLOOD COUNT 4.07 10^6/uL (3.72-5.28); RED CELL DISTRIBUTION WIDTH 13.3 % (11.5-14.0); SEGMENTED NEUTROPHILS % (AUTO) 58.5 % (42-78); TOTAL CELLS COUNTED % (AUTO) 100 %; WHITE BLOOD COUNT 6.6 10^3/uL (4.0-10.5)
[2019-08-28 13:38] LABS: ALBUMIN 5.2 g/dL (3.5-5.0); ALKALINE PHOSPHATASE 87 U/L (38-126); ANION GAP 15 (5-19); ASPARTATE AMINO TRANSFERASE 38 U/L (14-36); BILIRUBIN,DIRECT 0.2 mg/dL (0.0-0.4); BILIRUBIN,TOTAL 0.3 mg/dL (0.2-1.3); BLOOD UREA NITROGEN 10 mg/dL (7-20); CALCIUM 10.1 mg/dL (8.4-10.2); CARBON DIOXIDE 24 mmol/L (22-30); CHLORIDE 102 mmol/L (98-107); GLUCOSE 80 mg/dL (75-110); POTASSIUM 3.6 mmol/L (3.6-5.0); TOTAL PROTEIN 9.3 g/dL (6.3-8.2)
[2019-08-28] MEDS ORDERED: HYDROCORTISONE 0.5% CREAM 28.35 GM TP ONE (14:39)
[2019-08-28] MEDS ORDERED: ACETAMINOPHEN 325 MG TABLET PO PRN (15:52)
--- NOTE | 2019-08-28 16:46 | RADIOLOGY REPORT (SQ) ---
EXAM DESCRIPTION: HAND RIGHT 2 VIEWS COMPLETED DATE/TIME: 08/28/2019 4:36 pm REASON FOR STUDY: hand swelling ++ s/p phenergan infiltration COMPARISON: None. EXAM PARAMETERS: NUMBER OF VIEWS: Two view. TECHNIQUE: AP, lateral and oblique radiographic images acquired of the right hand. LIMITATIONS: None. FINDINGS: MINERALIZATION: Normal. BONES: No acute fracture or dislocation. No worrisome bone lesions. JOINTS: No effusions. SOFT TISSUES: Diffuse dorsal right hand soft tissue swelling. No foreign body. OTHER: No other significant finding. IMPRESSION: Diffuse dorsal right hand soft tissue swelling. No radiopaque foreign body. No soft ti ssue gas TECHNICAL DOCUMENTATION: JOB ID: [id number] [employer]- All Rights Reserved Reading location - IP/workstation name: [email or web address]
--- NOTE | 2019-08-28 17:20 | PDOC CONSULTATION ---
Consultation Consult Date: 08/28/19 Provider Consulted: YAMILEX LITTLE History of Present Illness Admission Date/PCP: CATIA PRESCOTT PA-C Patient complains of: Right hand swelling History of Present Illness: EDUARDO HUFFMAN is a 33 year old female who presented to the emergency room 24 hours ago with nausea and vomiting. She subsequently received Phenergan into her right hand when extravasation of the fluid occurred. She was discharged home appropriately with instructions. She states over the past 24 hours she has noticed increasing pain in her hand especially with motion of the wrist. Has occasional tingling in the fingers. Denies specific injury outside of above occurrence. States pain is 5/5 with any attempted motion. Denies fever chills or sweats. Past Medical History Cardiac Medical History: Reports: Hypertension Neurological Medical History: Reports: Migraine Psychiatric Medical History: Reports: Attention Deficit Hyperactivity Disorder, Bipolar Disorder - Bipolar 1, Depression, Post Traumatic Stress Disorder Past Surgical History Past Surgical History: Reports: Other - facial reconstruction Social History Smoking Status: Unknown if Ever Smoked Family History Family History: Reviewed & Not Pertinent, Arthritis, DM, Hyperlipidemia, Hypertension Parental Family History Reviewed: No Children Family History Reviewed: No Sibling(s) Family History Reviewed.: No Medication/Allergy Home Medications: Amlodipine Besylate [Norvasc 5 mg Tablet] 10 mg PO DAILY 05/12/19 Clonazepam [Klonopin 1 mg Tablet] 1 mg PO TID 05/12/19 Labetalol HCl 400 mg PO Q8H 05/12/19 Quetiapine Fumarate 300 mg PO QHS 05/12/19 Hydrochlorothiazide [Hydrodiuril 25 mg Tablet] 25 mg PO QAM #3 tablet 05/25/19 Quetiapine Fumarate [Seroquel 25 mg Tablet] 50 mg PO TID 3 Days tablet 05/25/19 Clonazepam [Klonopin] 1 mg PO TID #8 tablet 07/28/19 Promethazine HCl [Phenergan 25 mg Tablet] 25 mg PO Q6H PRN #7 tablet 07/28/19 Promethazine HCl [Phenergan 25 mg Supp.rect] 1 supp KS TID PRN #12 supp.rect 07/30/19 Cephalexin Monohydrate [Keflex 500 mg Capsule] 500 mg PO BID #14 capsule 08/04/19 Promethazine HCl [Phenergan 25 mg Supp.rect] 1 supp KS Q6H #15 supp.rect 08/04/19 Promethazine HCl [Phenergan 25 mg Supp.rect] 1 supp KS Q6H PRN #12 supp.rect 08/14/19 Allergies/Adverse Reactions: ketorolac tromethamine [From Toradol] Allergy (Verified 08/28/19 10:43) meperidine HCl [From Demerol] Allergy (Verified 08/28/19 10:43) metoclopramide HCl [From Reglan] Allergy (Verified 08/28/19 10:43) morphine [Morphine] Allergy (Verified 08/28/19 10:43) nalbuphine [From Nubain] Allergy (Verified 08/28/19 10:43) Hives prochlorperazine [From Compazine] Allergy (Verified 08/28/19 10:43) Hives tramadol [Tramadol] Allergy (Verified 08/28/19 10:43) Hives lamotrigine [From Lamictal] Adverse Reaction (Verified 08/28/19 10:43) Hives ondansetron HCl [From Zofran] Adverse Reaction (Verified 08/28/19 10:43) VOMITING Review of Systems Constitutional: ABSENT: chills, fever(s), headache(s), weight gain, weight loss Eyes: ABSENT: visual disturbances Ears: ABSENT: hearing changes Cardiovascular: ABSENT: chest pain, dyspnea on exertion, edema, orthropnea, palpitations Respiratory: ABSENT: cough, hemoptysis Gastrointestinal: PRESENT: nausea, vomiting. ABSENT: abdominal pain, constipation, diarrhea, hematemesis, hematochezia Genitourinary: ABSENT: dysuria, hematuria Musculoskeletal: PRESENT: as per HPI Integumentary: ABSENT: rash, wounds Neurological: ABSENT: abnormal gait, abnormal speech, confusion, dizziness, focal weakness, syncope Psychiatric: ABSENT: anxiety, depression, homidical ideation, suicidal ideation Endocrine: ABSENT: cold intolerance, heat intolerance, menstrual abnormalities, polydipsia, polyuria Hematologic/Lymphatic: ABSENT: easy bleeding, easy bruising, lymphadenopathy Physical Exam Vital Signs: Temp Pulse Resp BP Pulse Ox 98.5 F 98 18 106/63 100 08/28/19 15:46 08/28/19 15:46 08/28/19 15:46 08/28/19 15:46 08/28/19 15:46 Intake & Output 08/27/19 08/28/19 08/29/19 06:59 06:59 06:59 Weight 84 kg General appearance: PRESENT: no acute distress, well-developed, well-nourished Head exam: PRESENT: atraumatic, normocephalic Eye exam: PRESENT: conjunctiva pink, EOMI, PERRLA. ABSENT: scleral icterus Ear exam: PRESENT: normal external ear exam Mouth exam: PRESENT: moist, tongue midline Neck exam: PRESENT: full ROM. ABSENT: carotid bruit, JVD, lymphadenopathy, thyromegaly Respiratory exam: PRESENT: unlabored Cardiovascular exam: PRESENT: RRR. ABSENT: diastolic murmur, rubs, systolic murmur Pulses: PRESENT: normal dorsalis pedis pul, +2 pedal pulses bilateral Vascular exam: PRESENT: normal capillary refill GI/Abdominal exam: PRESENT: normal bowel sounds, soft. ABSENT: distended, guarding, mass, organolmegaly, rebound, tenderness Rectal exam: PRESENT: deferred Musculoskeletal exam: PRESENT: other - Right dorsal hand swelling. No erythema. No evidence of increased warmth. Equivalent temperature compared to noninvol piedad left hand. Compartments soft and compressible no sign of compartment syndrome. No pain with passive stretch. Full active extension of the thumb through small finger. Patient lacks tip to palm flexion index through small finger less than 5 mm. Two-point discrimination 5 mm throughout index through small finger and thumb. Cap refill less than 2 seconds. Normal skin turgor. Hypoesthesias on the distal tip. Pain with terminal extension of the wrist. No erythema proximally or underlying rash. Neurological exam: PRESENT: alert, awake, oriented to person, oriented to place, oriented to time, oriented to situation, CN II-XII grossly intact. ABSENT: motor sensory deficit Psychiatric exam: PRESENT: appropriate affect, normal mood. ABSENT: homicidal ideation, suicidal ideation Skin exam: PRESENT: dry, intact, warm. ABSENT: cyanosis, rash Results Laboratory Results: 08/28/19 13:05 08/28/19 13:05 08/28/19 08/28/19 08/28/19 10:55 13:05 13:05 WBC 6.6 RBC 4.07 Hgb 11.9 L Hct 35.7 L MCV 88 MCH 29.3 MCHC 33.3 RDW 13.3 Plt Count 222 Seg Neutrophils % 58.5 Sodium 140.6 Potassium 3.6 Chloride 102 Carbon Dioxide 24 Anion Gap 15 BUN 10 Creatinine 0.56 Est GFR ( Amer) > 60 Glucose 80 Calcium 10.1 Total Bilirubin 0.3 AST 38 H Alkaline Phosphatase 87 Total Protein 9.3 H Albumin 5.2 H Urine Color YELLOW Urine Appearance CLEAR Urine pH 8.0 Ur Specific [place] 1.016 Urine Protein NEGATIVE Urine Glucose (UA) NEGATIVE Urine Ketones NEGATIVE Urine Blood NEGATIVE Urine RBC (Auto) 0 Impressions: Hand X-Ray 08/28/19 15:50 IMPRESSION: Diffuse dorsal right hand soft tissue swelling. No radiopaque foreign body. No soft tissue gas Assessment & Plan - Diagnosis (1) Intravenous infiltration Qualifiers: Encounter type: sequela Qualified Code(s): T80.1XXS - Vascular complications following infusion, transfusion and therapeutic injection, sequela Is this a current diagnosis for this admission?: Yes Plan: Patient sustained IV infiltration with standing. However there is no sign or symptoms of a compartment syndrome on examination. Furthermore radiographs demonstrate dorsal soft tissue swelling no evidence of opaque foreign body. At this point I have recommended splint immobilization and continuing digit range of motion to avoid stiffness and intrinsic contracture and most importantly aggressive elevation. Patient may follow-up as an outpatient if her symptoms do not improve. Signs and symptoms of compartment syndrome office have been explained if he notices increasing redness swelling or pain she will follow-up at that time. (2) Swelling of right hand Is this a current diagnosis for this admission?: Yes
[2019-08-28] MEDS ORDERED: DIPHENHYDRAMINE HCL 25 MG CAPSULE PO ONE (17:28)
[2019-08-28] MEDS ORDERED: ACETAMINOPHEN 325 MG TABLET PO ONE (17:29)
[2019-08-28 20:00] VITALS: BP 116/69
--- NOTE | 2019-08-29 08:54 | XCELERA REPORT ---
[address] [address] Upper Extremity Venous Evaluation Name: EDUARDO HUFFMAN Age: 33 yrs Gender: Female : 1985 Patient Status: Emergency Patient Location: ER Study Date: 08/28/2019 05:24 PM Procedure: Unilateral duplex scan of the right upper extremity veins was performed, including responses to compression and other maneuvers. Reason For Study: c/f phenergan infiltration Ordering Physician: LEXIS VALADEZ Performed By: Lilia Bartholomew Right Side Venous Evaluation Normal vessel filling wall to wall, compression and augmentation as well as Colour flow down to the forearm veins. Interpretation Summary No duplex evidence of DVT or obstruction in the right upper extremity. : LEXIS VALADEZ > Eduard Almendarez
== END 2019-08-28 20:01 | disposition home or self-care (01) ==
LOC: ER 10:34
DX: O99.89 Other specified diseases and conditions complicating pregnancy, childbirth and the puerperium (principal); M79.89 Other specified soft tissue disorders; O9A.219 Injury, poisoning and certain other consequences of external causes complicating pregnancy, unspecified trimester; T88.7XXA Unspecified adverse effect of drug or medicament, initial encounter; T43.3X5A Adverse effect of phenothiazine antipsychotics and neuroleptics, initial encounter; O16.9 Unspecified maternal hypertension, unspecified trimester; O26.899 Other specified pregnancy related conditions, unspecified trimester; R11.0 Nausea; Z3A.00 Weeks of gestation of pregnancy not specified; Z88.8 Allergy status to other drugs, medicaments and biological substances; Z88.6 Allergy status to analgesic agent; Z88.5 Allergy status to narcotic agent
CPT/HCPCS: 99284; 96372; 36415; 84702; 85025; 80053; 81001; 93971 ×2; 73120; J3490 ×4; J1200; J2550

== ENCOUNTER 2019-09-04 17:11 | Emergency (ER) | payer MEDICAID, OTHER ==
[2019-09-04] MEDS ORDERED: PROMETHAZINE HCL 25 MG TABLET PO ONE (17:55)
[2019-09-04] MEDS ORDERED: DIPHENHYDRAMINE HCL 50 MG CAPSULE PO ONE (17:55)
--- NOTE | 2019-09-04 17:58 | ER Document Report ---
ED Medical Screen (RME) - General Chief Complaint: Headache Stated Complaint: DIZZY,NAUSEA,ABDOMINAL PAIN Time Seen by Provider: 09/04/19 17:50 Primary Care Provider: CATIA PRESCOTT PA-C [Primary Care Provider] - Follow up as needed TRAVEL OUTSIDE OF THE [place] IN LAST 30 DAYS: No - HPI Notes: 09/04/19 17:55 Patient is a 33-year-old female approximately 13 weeks who presents complaining of nausea, pelvic cramping, and elevated blood pressure. She was sent by her family doctor's office because of the elevated blood pressure. She has not been taking her blood pressure medicine recently. Patient states that she is able to tolerate p.o. without any difficulties despite the nausea and states that she does not need fluids at this time. No fever, chest pain, or shortness of breath. No vaginal bleeding. I have treated and performed a rapid initial assessment of this patient. A comprehensive ED assessment and evaluation of the patient, analysis of test results and completion of medical decision making process will be conducted by additional ED providers. PHYSICAL EXAMINATION: GENERAL: Well-appearing, well-nourished and in no acute distress. A&Ox4. Answe rs questions appropriately. - Related Data Allergies/Adverse Reactions: ketorolac tromethamine [From Toradol] Allergy (Verified 09/04/19 17:42) meperidine HCl [From Demerol] Allergy (Verified 09/04/19 17:42) metoclopramide HCl [From Reglan] Allergy (Verified 09/04/19 17:42) morphine [Morphine] Allergy (Verified 09/04/19 17:42) nalbuphine [From Nubain] Allergy (Verified 09/04/19 17:42) Hives prochlorperazine [From Compazine] Allergy (Verified 09/04/19 17:42) Hives tramadol [Tramadol] Allergy (Verified 09/04/19 17:42) Hives lamotrigine [From Lamictal] Adverse Reaction (Verified 09/04/19 17:42) Hives ondansetron HCl [From Zofran] Adverse Reaction (Verified 09/04/19 17:42) VOMITING Home Medications: Sae/Conjure Past Medical History - Social History Chew tobacco use (# tins/day): No Frequency of alcohol use: None Drug Abuse: None Family history: None - Past Medical History Cardiac Medical History: Reports: Hx Hypertension Neurological Medical History: Reports: Hx Migraine Renal/ Medical History: Denies: Hx Peritoneal Dialysis Musculoskeltal Medical History: Reports Hx Musculoskeletal Trauma Psychiatric Medical History: Reports: Hx Anxiety, Hx Attention Deficit Hyperactivity Disorder, Hx Bipolar Disorder - Bipolar 1, Hx Depression, Hx Post Traumatic Stress Disorder Traumatic Medical History: Reports: Hx Fractures - nose Past Surgical History: Reports: Hx Abdominal Surgery - LAPROSCOPY, Hx Gynecologic Surgery - d&c, lap for endometriosis, Hx Nose Surgery - Reconstruction for fracture, Other - facial reconstruction - Immunizations Immunizations up to date: Yes Hx Diphtheria, Pertussis, Tetanus Vaccination: Yes - 2010 Physical Exam - Vital signs Vitals: Temp Pulse Resp BP Pulse Ox 98.8 F 109 H 20 138/100 H 100 09/04/19 17:21 09/04/19 17:21 09/04/19 17:21 09/04/19 17:21 09/04/19 17:21 Course - Vital Signs Vital signs: Temp Pulse Resp BP Pulse Ox 98.8 F 109 H 20 138/100 H 100 09/04/19 17:21 09/04/19 17:21 09/04/19 17:21 09/04/19 17:21 09/04/19 17:21 Doctor's Discharge - Discharge Referrals: CATIA PRESCOTT PA-C [Primary Care Provider] - Follow up as needed
[2019-09-04 20:00] LABS: ABSOLUTE EOSINOPHILS # (AUTO) 0.3 10^3/uL (0.0-0.6); ABSOLUTE LYMPHOCYTES (AUTO) 2.4 10^3/uL (0.5-4.7); ABSOLUTE MONOCYTES (AUTO) 0.7 10^3/uL (0.1-1.4); ABSOLUTE NEUT (AUTO) 5.5 10^3/uL (1.7-8.2); BASOPHILS % (AUTO) 0.3 % (0-2); EOSINOPHILS % (AUTO) 3.3 % (0-6); HEMATOCRIT 32.7 % (36.0-47.0); LYMPHOCYTES % (AUTO) 26.3 % (13-45); MEAN CORPUSCULAR HEMOGLOBIN 29.5 pg (27.0-33.4); MEAN CORPUSCULAR HGB CONC 33.6 g/dL (32.0-36.0); MEAN CORPUSCULAR VOLUME 88 fl (80-97); MONOCYTES % (AUTO) 8.3 % (3-13); PLATELET COUNT 205 10^3/uL (150-450); RED BLOOD COUNT 3.73 10^6/uL (3.72-5.28); RED CELL DISTRIBUTION WIDTH 13.3 % (11.5-14.0); SEGMENTED NEUTROPHILS % (AUTO) 61.8 % (42-78); TOTAL CELLS COUNTED % (AUTO) 100 %; WHITE BLOOD COUNT 8.9 10^3/uL (4.0-10.5)
--- NOTE | 2019-09-04 20:06 | RADIOLOGY REPORT (SQ) ---
EXAM DESCRIPTION: U/S [id number] TRNABD 1GES W/ODOP COMPLETED DATE/TIME: 09/04/2019 7:32 pm REASON FOR STUDY: approx 13wks preg, cramping pain COMPARISON: None. TECHNIQUE: Transabdominal static and realtime grayscale images acquired of the pelvis. Additional se lected spectral and color Doppler images recorded. All images stored on PACs. bHCG: Not applicable. CLINICAL DATES: 12 weeks 2 days LIMITATIONS: None. FINDINGS: FETUS: Single Living intrauterine . ULTRASOUND EGA: 13 weeks 2 days ULTRASOUND KRISTEN: 03/09/2029 EFW: Not applicable less than 20 weeks. CRL: 6.36 cm FHR: 157 beats per minute. SURVEY: Too early to assess. AMNIOTIC FLUID: Adequate amount. PLACENTA: Not yet developed due to early gestation. SUBCHORIONIC BLEED: No SIZE OF BLEED: Not applicable. UTERUS: No masses. No anomalies. CERVICAL LENGTH: 2.7 cm Closed. RIGHT ADNEXA: Normal ovary with normal vascular flow. No adnexal free fluid. No adnexal masses. LEFT ADNEXA: Normal ovary with normal vascular flow. No adnexal free fluid. No adnexal masses. FREE FLUID: None. OTHER: No other significant finding. IMPRESSION: LIVING INTRAUTERINE . EGA 13 weeks 2 days Trimester of : Second trimester - 13 weeks 1 day to 27 weeks 6 days. TECHNICAL DOCUMENTATION: JOB ID: [id number] [employer]- All Rights Reserved rev-01/06 Reading location - IP/workstation name: [email or web address]
[2019-09-04 20:30] LABS: APPEARANCE,URINE CLEAR; BILIRUBIN,URINE NEGATIVE (NEGATIVE); COLOR,URINE YELLOW; GLUCOSE, URINE NEGATIVE (NEGATIVE); KETONES,URINE NEGATIVE (NEGATIVE); PROTEIN,URINE NEGATIVE (NEGATIVE); URINE SPECIFIC GRAVITY 1.009; UROBILINOGEN,URINE NEGATIVE mg/dL (<2.0)
[2019-09-04] MEDS ORDERED: ACETAMINOPHEN 325 MG TABLET PO ONE (20:42)
[2019-09-04 23:17] LABS: ALBUMIN 4.4 g/dL (3.5-5.0); ALKALINE PHOSPHATASE 58 U/L (38-126); ANION GAP 14 (5-19); ASPARTATE AMINO TRANSFERASE 23 U/L (14-36); BILIRUBIN,DIRECT 0.3 mg/dL (0.0-0.4); BILIRUBIN,TOTAL 0.3 mg/dL (0.2-1.3); BLOOD UREA NITROGEN 8 mg/dL (7-20); CALCIUM 9.9 mg/dL (8.4-10.2); CARBON DIOXIDE 23 mmol/L (22-30); CHLORIDE 101 mmol/L (98-107); GLUCOSE 91 mg/dL (75-110); TOTAL PROTEIN 7.9 g/dL (6.3-8.2)
[2019-09-04 23:19] LABS: POTASSIUM 2.8 mmol/L (3.6-5.0)
[2019-09-04] MEDS ORDERED: AMLODIPINE BESYLATE 10 MG TABLET PO ONE (23:40)
[2019-09-04] MEDS ORDERED: PROMETHAZINE HCL INJ 25 MG/1 ML VIAL IM ONE (23:41)
[2019-09-04] MEDS ORDERED: DIPHENHYDRAMINE HCL 50 MG/ML VIAL IV ONE (23:43)
[2019-09-04] MEDS ORDERED: POTASSIUM CHLORIDE 10 MEQ TABLET.ER PO ONE (23:45)
[2019-09-04] MEDS ORDERED: NORMAL SALINE 1000 ML 1,000 ML IV ONE (23:46)
[2019-09-05] MEDS: POTASSI CL 20 MEQ/50 ML RIDER 20 MEQ/50 ML RTUPB IV SCH ×2 (00:18→02:38)
[2019-09-05] MEDS ORDERED: DIPHENHYDRAMINE HCL 25 MG CAPSULE PO ONE (02:24)
[2019-09-05] MEDS ORDERED: PROMETHAZINE HCL 25 MG TABLET PO ONE (02:24)
--- NOTE | 2019-09-05 02:24 | ER Document Report ---
ED GI/ - General Chief Complaint: Headache Stated Complaint: DIZZY,NAUSEA,ABDOMINAL PAIN Time Seen by Provider: 09/04/19 17:50 Primary Care Provider: CATIA PRESCOTT PA-C [Primary Care Provider] - Follow up tomorrow Mode of Arrival: Ambulatory Information source: Patient Notes: 33-year-old female presented to ED for complaint of pelvic cramping elevated blood pressure nausea and vomiting. She has the same similar symptoms every time she comes in. She is seen in the emergency room multiple times a week. She states she is able to tolerate p.o. fluids with her nausea but still requires Phenergan Benadryl. She states she also has had a headache. She denies any fever chest pain shortness of breath or vaginal bleeding. TRAVEL OUTSIDE OF THE [place] IN LAST 30 DAYS: No - HPI Patient complains to provider of: , Vomiting, Other - Headache Onset: Other - 1 Timing/Duration: Waxing and waning Quality of pain: Achy Severity at maximum: Moderate Severity in ED: Moderate Pain Level: 2 Context: Location: Other - Headache Menstrual period history: Associated symptoms: Nausea, Vomiting Exacerbated by: Denies Relieved by: Denies Similar symptoms previously: Yes Recently seen / treated by doctor: Yes - Related Data Allergies/Adverse Reactions: ketorolac tromethamine [From Toradol] Allergy (Verified 09/04/19 17:42) meperidine HCl [From Demerol] Allergy (Verified 09/04/19 17:42) metoclopramide HCl [From Reglan] Allergy (Verified 09/04/19 17:42) morphine [Morphine] Allergy (Verified 09/04/19 17:42) nalbuphine [From Nubain] Allergy (Verified 09/04/19 17:42) Hives prochlorperazine [From Compazine] Allergy (Verified 09/04/19 17:42) Hives tramadol [Tramadol] Allergy (Verified 09/04/19 17:42) Hives lamotrigine [From Lamictal] Adverse Reaction (Verified 09/04/19 17:42) Hives ondansetron HCl [From Zofran] Adverse Reaction (Verified 09/04/19 17:42) VOMITING Home Medications: Sae/[facility] Past Medical History - General Information source: Patient - Social History Smoking Status: Current Every Day Smoker Chew tobacco use (# tins/day): No Frequency of alcohol use: None Drug Abuse: None Lives with: Family Family History: Reviewed & Not Pertinent, Arthritis, DM, Hyperlipidemia, Hypertension Patient has suicidal ideation: No Patient has homicidal ideation: No - Past Medical History Cardiac Medical History: Reports: Hx Hypertension Pulmonary Medical History: Reports: None EENT Medical History: Reports: None Neurological Medical History: Reports: Hx Migraine Endocrine Medical History: Reports: None Renal/ Medical History: Reports: None Malignancy Medical History: Reports: None GI Medical History: Reports: None Musculoskeletal Medical History: Reports Hx Musculoskeletal Trauma Skin Medical History: Reports None Psychiatric Medical History: Reports: Hx Anxiety, Hx Attention Deficit Hyperactivity Disorder, Hx Bipolar Disorder - Bipolar 1, Hx Depression, Hx Post Traumatic Stress Disorder Traumatic Medical History: Reports: Hx Fractures - nose Infectious Medical History: Reports: None Past Surgical History: Reports: Hx Abdominal Surgery - LAPROSCOPY, Hx Gynecologic Surgery - d&c, lap for endometriosis, Hx Nose Surgery - Reconstruction for fracture, Other - facial reconstruction - Immunizations Immunizations up to date: Yes Hx Diphtheria, Pertussis, Tetanus Vaccination: Yes - 2010 Review of Systems - Review of Systems Constitutional: No symptoms reported EENT: No symptoms reported Cardiovascular: No symptoms reported Respiratory: No symptoms reported Gastrointestinal: Nausea, Vomiting Genitourinary: No symptoms reported Female Genitourinary: Musculoskeletal: No symptoms reported Skin: No symptoms reported Hematologic/Lymphatic: No symptoms reported Neurological/Psychological: Headaches -: Yes All other systems reviewed and negative Physical Exam - Vital signs Vitals: Temp Pulse Resp BP Pulse Ox 98.8 F 109 H 20 138/100 H 100 09/04/19 17:21 09/04/19 17:21 09/04/19 17:21 09/04/19 17:21 09/04/19 17:21 Interpretation: Normal - General General appearance: Appears well, Alert - HEENT Head: Normocephalic, Atraumatic Eyes: Normal Pupils: PERRL - Respiratory Respiratory status: No respiratory distress Chest status: Nontender Breath sounds: Normal Chest palpation: Normal - Cardiovascular Rhythm: Regular Heart sounds: Normal auscultation Murmur: No - Abdominal Inspection: Gravid female Distension: No distension Bowel sounds: Normal Tenderness: Nontender Organomegaly: No organomegaly - Back Back: Normal, Nontender - Extremities General upper extremity: Normal inspection, Nontender, Normal color, Normal ROM, Normal temperature General lower extremity: Normal inspection, Nontender, Normal color, Normal ROM, Normal temperature, Normal weight bearing. No: Yovani's sign - Neurological Neuro grossly intact: Yes Cognition: Normal Orientation: AAOx4 Ron Coma Scale Eye Opening: Spontaneous Ron Coma Scale Verbal: Oriented [place] Coma Scale Motor: Obeys Commands Ron Coma Scale Total: 15 Speech: Normal Cranial nerves: Normal Cerebellar coordination: Normal Motor strength normal: LUE, RUE, LLE, RLE Additional motor exam normals: Equal urology physician Sensory: Normal - Psychological Associated symptoms: Agitated, Anxious - Skin Skin Temperature: Warm Skin Moisture: Dry Skin Color: Normal Course - Re-evaluation Re-evalutation: 09/05/19 09:15 Patient was treated multiple times with Phenergan Benadryl and Tylenol for her chronic nausea vomiting and her headache. She was also treated with IV fluids with potassium for her hypokalemia. Patient was treated with amlodipine because this is what she states she takes for her high blood pressure and she was not able to get it filled. Patient was given instructions multiple times concerning the risk of the Phenergan and amlodipine. Patient stated that the only thing to bring her blood pressure down. 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 - Vital Signs Vital signs: Temp Pulse Resp BP Pulse Ox 98.8 F 109 H 21 H 126/80 H 100 09/04/19 17:21 09/04/19 17:21 09/05/19 02:34 09/05/19 02:34 09/05/19 02:34 - Laboratory Result Diagrams: 09/04/19 19:45 09/04/19 22:54 Laboratory results interpreted by me: 09/04/19 09/04/19 09/04/19 19:45 20:06 22:54 Hgb 11.0 L Hct 32.7 L Potassium 2.8 L* Leukocyte Esterase Rfl TRACE H - Diagnostic Test Radiology reviewed: Image reviewed, Reports reviewed Discharge - Discharge Clinical Impression: Hypokalemia Headache Qualifiers: Headache type: unspecified Headache chronicity pattern: unspecified pattern Intractability: not intractable Qualified Code(s): R51 - Headache Nausea & vomiting Qualifiers: Vomiting type: unspecified Vomiting Intractability: non-intractable Qualified Code(s): R11.2 - Nausea with vomiting, unspecified High blood pressure Qualifiers: Hypertension type: unspecified Qualified Code(s): I10 - Essential (primary) hypertension Condition: Stable Disposition: HOME, SELF-CARE Additional Instructions: VOMITING: Vomiting (or nausea without vomiting) can be caused by many other different problems. It can mean that something's wrong with the stomach, such as ulcers or inflammation or the intestinal tract, such as appendicitis. But it can also be a symptom of a problem that has nothing to do with the stomach or intestines. Vomiting is common with severe headaches, earaches, tonsillitis, and kidney infections, etc. We see it with pneumonia or heart attacks. Drugs can cause nausea and vomiting. Many abdominal problems cause vomiting; for example, gallstones, kidney stones, pancreatitis, and intestinal obstruction (blocked bowels). In most cases, curing the vomiting depends on fixing the problem that caused it. For temporary relief, we may use an anti-nausea medicine. For home use, we can prescribe suppositories, chewable pills, pills that dissolve in the mouth, or liquid anti-nausea drugs. If the vomiting seems to be caused by a problem in the stomach, acid-suppressing drugs may be prescribed as well. It's important to avoid dehydration. Sip small amounts of clear liquids ( soft drinks, tea, broth, etc) . Try to take fluids frequently even if you are vomiting to prevent dehydration. Take increasing amounts of fluid and when liquids are being consumed successfully, advance to small amounts of bland food (toast, soups, mashed potatoes, etc.) until you are able to resume a regular diet. Avoid aspirin, tobacco, and alcohol. If the vomiting worsens, if the problem that's making you vomit worsens, or if there's evidence of bleeding in the stomach (such as black, tarry stool, or bloody or black vomit), you should return immediately. Also, return if abdominal pain worsens or becomes localized to one area or you develop high fever. Call your doctor if you aren't improved in 24 hours. Hypokalemia You have an abnormally decreased level of serum potassium. Hypokalemia may cause weakness, fatigue, or heart rhythm abnormalities. Sometimes there are no symptoms at all. Usually, low serum potassium is due to taking diuretics (water pills). It can also be due to excessive vomiting or diarrhea. If no obvious cause is evident, further evaluation will be necessary. Treatment is usually oral potassium supplements. Take these exactly as prescribed. You may also want to select foods which are naturally high in potassium -- fruits (such as bananas, cantaloupe, grapes, oranges, prunes, tomatoes), fresh vegetables (potatoes, spinach, beans, peas), orange or tomato juice, tomato pasta sauce, milk, fish (halibut, tuna, salmon, jono) A follow-up blood test is usually performed to assure that the potassium is returning to normal. Call the physician if you suffer severe weakness, muscle twitching or cramping, palpitations (pounding or irregular heartbeat), or any other new or alarming symptoms. Headache The physician does not feel that the headache you are experiencing has a serious underlying cause. Most headaches are due to emotional stress, with resultant muscle tension (tension headache). Occasionally, headaches are secondary to changes in the blood vessels of the scalp (vascular headache and migraine headache). Sometimes, a headache is the first symptom of another developing illness, such as a viral infection. You have no evidence of stroke, bleeding, meningitis, or other serious cause of your headache. The treatment of headaches varies with the severity and cause of the pain. Not all headaches need pain shots. In fact, there is evidence that using narcotics for headaches may make them worse in the long run. The physician will determine the therapy that's in your best interest. If you develop a fever, if the headache is different from any you've previo usly experienced, or if the headache progressively worsens, then call your physician at once or go to the emergency room. High Blood Pressure When your blood pressure was taken today it was elevated. Today's reading was_138/100 . Pre-hypertension/Hypertension: The patient has been informed that they may have pre-hypertension or Hypertension based on a blood pressure reading in the emergency department. I recommend that the patient call the primary care provider listed on their discharge instructions or a physician of their choice this week to arrange follow up for further evaluation of possible pre- hypertension or Hypertension. Sometimes, stress or illness causes a temporary elevation of your blood pressure. We suggest that you get your blood pressure measured three more times during the next few days to see if this is more than a temporary abnormality. If your blood pressure is greater than 150/90 on each occasion, you must have treatment. Some simple things you can do to help are: If you have blood pressure medicine but aren't using it regularly, start taking it again. Get some aerobic exercise for at least 20 minutes on a daily basis. (See your doctor before beginning a new exercise program.) Eat a low-fat diet. Lose excess weight. Avoid salty foods and avoid adding salt to any of the foods you eat. Avoid diet pills, decongestants, "energizing" herbs, and other medicines that elevate blood pressure. If left untreated, hypertension greatly enhances your risk for developing heart disease and strokes. Please don't ignore this problem. INTRAVENOUS (I V) FLUIDS: As part of your care today, you received intravenous (IV) fluids. IV fluids are administered to patients who are dehydrated or to those who have certain chemical (electrolyte) abnormalities that need correcting. ANTINAUSEA MEDICATION: You have been given a medication to suppress nausea and vomiting. This type of medication can be given as a shot, pill, or suppository. It will usually last for many hours. Pills and shots usually last six to eight hours. For the typical illness, only one or two doses of the medication may be necessary. Mild lightheadedness may occur. This type of medicine can cause drowsiness. Do not drive or operate dangerous machinery while under its influence. Do not mix with alcohol. See your doctor at once if you have muscle spasms or tightness, or uncontrollable motions (particularly of the neck, mouth, or jaw). Persistent vomiting or severe lightheadedness should also be evaluated by the physician. Diphenhydramine The use of diphenhydramine (Benadryl) has been recommended to control allergic symptoms. The 25 mg strength is available over- the-counter, as well as the elixir. This antihistamine is used for many symptoms. It's useful for itching, watering eyes and nose, allergic swelling, hives, and insect stings. The medication can be repeated four times daily. Age Elixir (12.5 mg/tsp) 25 mg pill 1 yr 1/4 tsp 2-3 yr 1/2 tsp 4-8 yr 1 tsp 9-14 yr 2 tsp one tab adult 1-2 tabs Antihistamines may cause drowsiness, especially with the first dose. Do not operate machinery or drive while under the effects of the medication. Do not combine the medication with alcohol, or with any other medication without talking to your doctor. Calcium Channel Blockers A medication of the calcium channel huong type has been prescribed for you. Examples of this type of medicine are Calan, Isoptin, Procardia, and Cardi zem. These medicines have a variety of uses, including prevention of angina attacks, treatment of blood pressure, regulation of certain heart rhythm problems, and prevention of migraine headaches. Calcium channel blockers work by interfering with the flow of calcium in cell membranes. This results in dilation of blood vessels, and slowing of electrical conduction in the heart. A slight dizziness (due to a fall in blood pressure) may occur with the first dose, and sometimes even with later doses. This may make you prone to dizziness if you stand up suddenly. Call the doctor if lightheadedness is severe, or if you develop palpitations, shortness of breath, or any other new or alarming symptoms. Acetaminophen Acetaminophen may be taken for pain relief or fever control. It's much safer than aspirin, offering a wider range of "safe" dosages. It is safe during . Some brand names are Tylenol, Panadol, Datril, Anacin 3, Tempra, and Liquiprin. Acetaminophen can be repeated every four hours. The following are maximum recommended dosages: WEIGHT Dose Drops Elixir Chewable(80mg) (LBS.) drprs=droppers tsp=teaspoon 6 40 mg .4 ml (1/2) 6-11 80 mg .8 ml (full) 1/2 tsp 1 tab 12-16 120 mg 1 1/2 drprs 3/4 tsp 1 1/2 tabs 17-23 160 mg 2 drprs 1 tsp 2 tabs 24-30 240 mg 3 drprs 1 1/2 tsp 3 tabs 30-35 320 mg 2 tsp 4 tabs 36-41 360 mg 2 1/4 tsp 4 1/2 tabs 42-47 400 mg 2 1/2 tsp 5 tabs 48-53 480 mg 3 tsp 6 tabs 54-59 520 mg 3 1/4 tsp 6 1/2 tabs 60-64 560 mg 3 1/2 tsp 7 tabs 65-70 600 mg 3 3/4 tsp 7 1/2 tabs 71-76 640 mg 4 tsp 8 tabs 77-82 720 mg 4 1/2 tsp 9 tabs 83-88 800 mg 5 tsp 10 tabs >89 pounds or adults 650 mg to 900 mg Acetaminophen can be repeated every four hours. Maximum daily dose not to exceed 4000 mg. These maximum recommended dosages are slightly higher than the dosages written on the product container, but these dosages are very safe and well below the toxic dosage for acetaminophen. You have been getting Phenergan and amlodipine throughout your . Both of these are not recommended during . I have discussed with you the amlodipine and the need for you to get a different blood pressure medicine while you are . Please speak with your primary care doctor or your [employer] to get a different medication for your blood pressure FOLLOW-UP CARE: If you have been referred to a physician for follow-up care, call the physicians office for an appointment as you were instructed or within the next two days. If you experience worsening or a significant change in your symptoms, notify the physician immediately or return to the Emergency Department at any time for re-evaluation. Prescriptions: Amlodipine Besylate [Norvasc 10 mg Tablet] 10 mg PO DAILY #6 tablet Promethazine HCl [Phenergan 25 mg Tablet] 25 mg PO Q6H PRN #7 tablet PRN Reason: Forms: Elevated Blood Pressure Referrals: CATIA PRESCOTT PA-C [Primary Care Provider] - Follow up tomorrow
[2019-09-05] MEDS ORDERED: ACETAMINOPHEN 325 MG TABLET PO ONE (02:25)
[2019-09-05] MEDS ORDERED: POTASSIUM CHLORIDE 10 MEQ TABLET.ER PO ONE (02:35)
[2019-09-05 02:44] VITALS: BP 126/80
== END 2019-09-05 03:22 | disposition home or self-care (01) ==
LOC: ER 17:11
DX: O21.9 Vomiting of pregnancy, unspecified (principal); O26.899 Other specified pregnancy related conditions, unspecified trimester; R51 Headache; R10.2 Pelvic and perineal pain; O16.9 Unspecified maternal hypertension, unspecified trimester; O99.280 Endocrine, nutritional and metabolic diseases complicating pregnancy, unspecified trimester; E87.6 Hypokalemia; O99.330 Smoking (tobacco) complicating pregnancy, unspecified trimester; F17.200 Nicotine dependence, unspecified, uncomplicated; Z3A.00 Weeks of gestation of pregnancy not specified; Z88.8 Allergy status to other drugs, medicaments and biological substances; Z88.6 Allergy status to analgesic agent; Z88.5 Allergy status to narcotic agent
CPT/HCPCS: 99284; 96372; 96375; 96365; 96366; 36415; 87086; 83690; 85025; 80053; 81001; 76801; J3490 ×6; J1200; J2550; J3480; J7030

== ENCOUNTER → 2019-09-14 | Outpatient (CLI) | payer MEDICAID ==
--- NOTE | 2019-09-14 16:40 | RADIOLOGY REPORT (SQ) ---
EXAM DESCRIPTION: U/S [id number] TRNABD 1GES W/ODOP COMPLETED DATE/TIME: 09/14/2019 2:42 pm REASON FOR STUDY: Z34.81 ENCOUNTER FOR SUPRVSN OF NORMAL , FIRST TRIMESTER Z34.81 ENCOUNTE R FOR SUPRVSN OF NORMAL , FIRST TRIM COMPARISON: 09/04/2019 TECHNIQUE: Transabdominal static and realtime grayscale images acquired of the pelvis. Additional se lected spectral and color Doppler images recorded. All images stored on PACs. bHCG: Not applicable. CLINICAL DATES: 14 weeks 3 days. LIMITATIONS: None. FINDINGS: FETUS: Single Living intrauterine . ULTRASOUND EGA: 14 weeks 3 days. ULTRASOUND KRISTEN: 03/11/2020 EFW: Not applicable less than 20 weeks. CRL: 8.7 cm FHR: 144 beats per minute. SURVEY: Too early to assess. AMNIOTIC FLUID: Adequate amount. PLACENTA: Posterior, slightly heterogeneous. SUBCHORIONIC BLEED: No SIZE OF BLEED: Not applicable. UTERUS: No masses. No anomalies. CERVICAL LENGTH: 2.5 cm. Closed. RIGHT ADNEXA: Ovary not seen. No adnexal free fluid. No adnexal masses. LEFT ADNEXA: Ovary not seen. No adnexal free fluid. No adnexal masses. FREE FLUID: None. OTHER: No other significant finding. IMPRESSION: Live intrauterine gestation of 14 weeks 3 days. The placenta is posterior and slightly heterogeneous. Trimester of : Second trimester - 13 weeks 1 day to 27 weeks 6 days. TECHNICAL DOCUMENTATION: JOB ID: [id number] [employer]- All Rights Reserved rev-01/06 Reading location - IP/workstation name: [email or web address]
== END ==
LOC: RAD 13:36
PROVIDERS: ATTEND Midwife
DX: Z34.81 Encounter for supervision of other normal pregnancy, first trimester (principal)
CPT/HCPCS: 76801

== ENCOUNTER 2019-09-17 11:04 | Emergency (ER) | payer MEDICAID ==
[2019-09-17] MEDS ORDERED: DIPHENHYDRAMINE HCL 50 MG/ML VIAL IM ONE (12:46)
[2019-09-17] MEDS ORDERED: PROMETHAZINE HCL INJ 25 MG/1 ML VIAL IM ONE (12:46)
--- NOTE | 2019-09-17 12:48 | ER Document Report ---
ED General - General Chief Complaint: Abdominal Pain Stated Complaint: NAUSEA Notes: 33-year-old female with a history of recurrent cyclic vomiting current first trimester and multiple ED visits for vomiting presents with a chief complaint of "I need my Phenergan and Benadryl." When asked what she takes at home she says "Phenergan and Benadryl." She has no abdominal pain but is been having some diarrhea. She was seen here twice in the last month, for similar symptoms. Denies abdominal pain at the moment. TRAVEL OUTSIDE OF THE [place] IN LAST 30 DAYS: No - Related Data Allergies/Adverse Reactions: ketorolac tromethamine [From Toradol] Allergy (Verified 09/04/19 17:42) meperidine HCl [From Demerol] Allergy (Verified 09/04/19 17:42) metoclopramide HCl [From Reglan] Allergy (Verified 09/04/19 17:42) morphine [Morphine] Allergy (Verified 09/04/19 17:42) nalbuphine [From Nubain] Allergy (Verified 09/04/19 17:42) Hives prochlorperazine [From Compazine] Allergy (Verified 09/04/19 17:42) Hives tramadol [Tramadol] Allergy (Verified 09/04/19 17:42) Hives lamotrigine [From Lamictal] Adverse Reaction (Verified 09/04/19 17:42) Hives ondansetron HCl [From Zofran] Adverse Reaction (Verified 09/04/19 17:42) VOMITING Past Medical History - Social History Smoking Status: Current Some Day Smoker Family History: Reviewed & Not Pertinent, Arthritis, DM, Hyperlipidemia, Hypertension Patient has suicidal ideation: No Patient has homicidal ideation: No - Past Medical History Cardiac Medical History: Reports: Hx Hypertension Neurological Medical History: Reports: Hx Migraine Renal/ Medical History: Denies: Hx Peritoneal Dialysis Musculoskeletal Medical History: Reports Hx Musculoskeletal Trauma Psychiatric Medical History: Reports: Hx Anxiety, Hx Attention Deficit Hyperactivity Disorder, Hx Bipolar Disorder - Bipolar 1, Hx Depression, Hx Post Traumatic Stress Disorder Traumatic Medical History: Reports: Hx Fractures - nose Past Surgical History: Reports: Hx Abdominal Surgery - LAPROSCOPY, Hx Gynecologic Surgery - d&c, lap for endometriosis, Hx Nose Surgery - Reconstruction for fracture, Other - facial reconstruction - Immunizations Immunizations up to date: Yes Hx Diphtheria, Pertussis, Tetanus Vaccination: Yes - 2010 Review of Systems - Review of Systems Notes: REVIEW OF SYSTEMS GEN: Denies fever, chills, weight loss ENT: Denies sore throat, nasal discharge, ear pain EYES: Denies blurry vision, eye pain, discharge CV: Denies chest pain, palpitations, edema RESP: Denies cough, shortness of breath, wheezing GI: As per HPI MSK: Denies joint pain/swelling, edema, SKIN: Denies rash, skin lesions LYMPH: Denies swollen glands/lymph nodes NEURO: Denies headache, focal weakness or numbness, dizziness PSYCH: Denies depression, suicidal or homicidal ideation PHYSICAL EXAMINATION General: No acute distress, well-nourished Head: Atraumatic, normocephalic ENT: Mouth normal, oropharynx moist, no exudates or tonsillar enlargement Eyes: Conjunctiva normal, pupils equal, lids normal Neck: No JVD, supple, no guarding CVS: Normal rate, regular rhythm, no murmurs Resp: No resp distress, equal and normal breath sounds bilaterally GI: Nondistended, soft, no tenderness to palpation, no rebound or guarding Ext: No deformities, no edema, normal range of motion in upper and lower ext Back: No CVA or midline TTP Skin: No rash, warm Lymphatic: No lymphadeopathy noted Neuro: Awake, alert. Face symmetric. GCS 15. Physical Exam - Vital signs Vitals: Temp Pulse Resp BP Pulse Ox 98.6 F 104 H 16 119/78 100 09/17/19 11:24 09/17/19 11:24 09/17/19 11:24 09/17/19 11:24 09/17/19 11:24 Course - Re-evaluation Re-evalutation: 09/17/19 15:52 Patient with recurrent cyclic vomiting now with several recent visits for same. Asking for parenteral versions of the medicines that she is already taking at home. Slightly tachycardic but no tenderness. In review sure heart rate is usually around 100. She has no hemodynamic instability or focal tenderness to suggest an infection. She was given IM Phenergan Benadryl oral Tylenol which she tolerated in addition to a p.o. challenge was discharged in stable condition. - Vital Signs Vital signs: Temp Pulse Resp BP Pulse Ox 97.9 F 113 H 20 122/73 100 09/17/19 13:46 09/17/19 13:46 09/17/19 13:46 09/17/19 13:46 09/17/19 13:46 Discharge - Discharge Clinical Impression: Nausea and vomiting during Condition: Good Disposition: HOME, SELF-CARE Instructions: Diarrhea, Nonspecific ([facility]), Vomiting ([facility]) Additional Instructions: Follow-up with your provider within 1 to 2 days Prescriptions: Promethazine HCl [Phenergan 25 mg Supp.rect] 1 supp IA Q6H #12 supp.rect
[2019-09-17] MEDS ORDERED: ACETAMINOPHEN 325 MG TABLET PO ONE (13:19)
[2019-09-17 13:44] VITALS: BP 122/73
== END 2019-09-17 13:47 | disposition home or self-care (01) ==
LOC: ER 11:04
DX: O21.9 Vomiting of pregnancy, unspecified (principal); R19.7 Diarrhea, unspecified; O99.331 Smoking (tobacco) complicating pregnancy, first trimester; Z3A.00 Weeks of gestation of pregnancy not specified
CPT/HCPCS: 99283; 96372; J3490; J1200; J2550

== ENCOUNTER 2019-09-21 05:06 | Emergency (ER) | payer MEDICAID ==
[2019-09-21] MEDS ORDERED: NORMAL SALINE 1000 ML 1,000 ML IV ONE ×2 (05:40→08:41)
[2019-09-21 06:05] LABS: ABSOLUTE EOSINOPHILS # (AUTO) 0.1 10^3/uL (0.0-0.6); ABSOLUTE LYMPHOCYTES (AUTO) 1.5 10^3/uL (0.5-4.7); ABSOLUTE MONOCYTES (AUTO) 0.4 10^3/uL (0.1-1.4); BASOPHILS % (AUTO) 0.3 % (0-2); EOSINOPHILS % (AUTO) 2.4 % (0-6); HEMATOCRIT 29.2 % (36.0-47.0); HEMOGLOBIN 10.1 g/dL (12.0-15.5); MEAN CORPUSCULAR HGB CONC 34.5 g/dL (32.0-36.0); MEAN CORPUSCULAR VOLUME 87 fl (80-97); PLATELET COUNT 172 10^3/uL (150-450); RED BLOOD COUNT 3.36 10^6/uL (3.72-5.28); RED CELL DISTRIBUTION WIDTH 13.6 % (11.5-14.0); SEGMENTED NEUTROPHILS % (AUTO) 66.3 % (42-78); TOTAL CELLS COUNTED % (AUTO) 100 %; WHITE BLOOD COUNT 6.1 10^3/uL (4.0-10.5)
[2019-09-21 06:18] LABS: ALBUMIN 3.7 g/dL (3.5-5.0); ALKALINE PHOSPHATASE 67 U/L (38-126); ANION GAP 8 (5-19); ASPARTATE AMINO TRANSFERASE 30 U/L (14-36); BILIRUBIN,DIRECT 0.1 mg/dL (0.0-0.4); BILIRUBIN,TOTAL 0.4 mg/dL (0.2-1.3); BLOOD UREA NITROGEN 8 mg/dL (7-20); CALCIUM 8.9 mg/dL (8.4-10.2); CARBON DIOXIDE 25 mmol/L (22-30); CHLORIDE 105 mmol/L (98-107); GLUCOSE 91 mg/dL (75-110); POTASSIUM 3.4 mmol/L (3.6-5.0)
[2019-09-21 08:03] LABS: APPEARANCE,URINE SLIGHTLY-CLOUDY; BILIRUBIN,URINE NEGATIVE (NEGATIVE); COLOR,URINE YELLOW; GLUCOSE, URINE NEGATIVE (NEGATIVE); KETONES,URINE TRACE mg/dL (NEGATIVE); LEUKOCYTE ESTERASE,URINE SMALL (NEGATIVE); NITRITE,URINE NEGATIVE (NEGATIVE); PROTEIN,URINE NEGATIVE (NEGATIVE); URINE SPECIFIC GRAVITY 1.013; UROBILINOGEN,URINE NEGATIVE mg/dL (<2.0)
--- NOTE | 2019-09-21 08:30 | ER Document Report ---
ED General - General Chief Complaint: Nausea/Vomiting Stated Complaint: ABDOMINAL PAIN Time Seen by Provider: 09/21/19 08:07 TRAVEL OUTSIDE OF THE [place] IN LAST 30 DAYS: No - Related Data Allergies/Adverse Reactions: ketorolac tromethamine [From Toradol] Allergy (Verified 09/21/19 05:36) meperidine HCl [From Demerol] Allergy (Verified 09/21/19 05:36) metoclopramide HCl [From Reglan] Allergy (Verified 09/21/19 05:36) morphine [Morphine] Allergy (Verified 09/21/19 05:36) nalbuphine [From Nubain] Allergy (Verified 09/21/19 05:36) Hives prochlorperazine [From Compazine] Allergy (Verified 09/21/19 05:36) Hives tramadol [Tramadol] Allergy (Verified 09/21/19 05:36) Hives lamotrigine [From Lamictal] Adverse Reaction (Verified 09/21/19 05:36) Hives ondansetron HCl [From Zofran] Adverse Reaction (Verified 09/21/19 05:36) VOMITING Past Medical History - Social History Smoking Status: Unknown if Ever Smoked Family History: Reviewed & Not Pertinent, Arthritis, DM, Hyperlipidemia, Hypertension Patient has suicidal ideation: No Patient has homicidal ideation: No - Past Medical History Cardiac Medical History: Reports: Hx Hypertension Neurological Medical History: Reports: Hx Migraine Renal/ Medical History: Denies: Hx Peritoneal Dialysis Musculoskeletal Medical History: Reports Hx Musculoskeletal Trauma Psychiatric Medical History: Reports: Hx Anxiety, Hx Attention Deficit Hyperactivity Disorder, Hx Bipolar Disorder - Bipolar 1, Hx Depression, Hx Post Traumatic Stress Disorder Traumatic Medical History: Reports: Hx Fractures - nose Past Surgical History: Reports: Hx Abdominal Surgery - LAPROSCOPY, Hx Gynecologic Surgery - d&c, lap for endometriosis, Hx Nose Surgery - Reconstruction for fracture, Other - facial reconstruction - Immunizations Immunizations up to date: Yes Hx Diphtheria, Pertussis, Tetanus Vaccination: Yes - 2010 Physical Exam - Vital signs Vitals: Temp Pulse Resp BP Pulse Ox 98.5 F 94 16 140/71 H 94 09/21/19 05:07 09/21/19 05:07 09/21/19 05:07 09/21/19 05:07 09/21/19 05:07 Course - Vital Signs Vital signs: Temp Pulse Resp BP Pulse Ox 98.5 F 94 16 140/71 H 94 09/21/19 05:07 09/21/19 05:07 09/21/19 05:07 09/21/19 05:07 09/21/19 05:07 - Laboratory Result Diagrams: 09/21/19 05:30 09/21/19 05:30 Laboratory results interpreted by me: 09/21/19 09/21/19 09/21/19 05:30 05:30 07:27 RBC 3.36 L Hgb 10.1 L Hct 29.2 L Potassium 3.4 L Creatinine 0.40 L Urine Ketones TRACE H Ur Leukocyte Esterase SMALL H
[2019-09-21] MEDS ORDERED: PROMETHAZINE HCL INJ 25 MG/1 ML VIAL IM ONE (08:38)
[2019-09-21] MEDS ORDERED: DIPHENHYDRAMINE HCL 50 MG/ML VIAL IM ONE (08:38)
--- NOTE | 2019-09-21 08:42 | ER Document Report ---
ED General - General Chief Complaint: Nausea/Vomiting Stated Complaint: ABDOMINAL PAIN Time Seen by Provider: 09/21/19 08:07 Primary Care Provider: [facility] [Provider Group] - Follow up in 1 week Notes: Patient is a 33-year-old G8, P7 female who presents emergency department with a chief complaint of nausea, vomiting, and diarrhea. Patient is 17 weeks . Patient states that for the past 3 days she has not been able to keep anything down. Patient thinks that she may have some kind of virus. Patient tried to take OR Phenergan and oral Phenergan at home, but had no relief in her symptoms. Patient states that she is not sure if she can feel the baby moving, because she has not felt the baby move yet. TRAVEL OUTSIDE OF THE [place] IN LAST 30 DAYS: No - Related Data Allergies/Adverse Reactions: ketorolac tromethamine [From Toradol] Allergy (Verified 09/21/19 05:36) meperidine HCl [From Demerol] Allergy (Verified 09/21/19 05:36) metoclopramide HCl [From Reglan] Allergy (Verified 09/21/19 05:36) morphine [Morphine] Allergy (Verified 09/21/19 05:36) nalbuphine [From Nubain] Allergy (Verified 09/21/19 05:36) Hives prochlorperazine [From Compazine] Allergy (Verified 09/21/19 05:36) Hives tramadol [Tramadol] Allergy (Verified 09/21/19 05:36) Hives lamotrigine [From Lamictal] Adverse Reaction (Verified 09/21/19 05:36) Hives ondansetron HCl [From Zofran] Adverse Reaction (Verified 09/21/19 05:36) VOMITING Past Medical History - Social History Smoking Status: Unknown if Ever Smoked Family History: Reviewed & Not Pertinent, Arthritis, DM, Hyperlipidemia, Hypertension Patient has suicidal ideation: No Patient has homicidal ideation: No - Past Medical History Cardiac Medical History: Reports: Hx Hypertension Neurological Medical History: Reports: Hx Migraine Renal/ Medical History: Denies: Hx Peritoneal Dialysis Musculoskeletal Medical History: Reports Hx Musculoskeletal Trauma Psychiatric Medical History: Reports: Hx Anxiety, Hx Attention Deficit Hyperactivity Disorder, Hx Bipolar Disorder - Bipolar 1, Hx Depression, Hx Post Traumatic Stress Disorder Traumatic Medical History: Reports: Hx Fractures - nose Past Surgical History: Reports: Hx Abdominal Surgery - LAPROSCOPY, Hx Gynecologic Surgery - d&c, lap for endometriosis, Hx Nose Surgery - Reconstruction for fracture, Other - facial reconstruction - Immunizations Immunizations up to date: Yes Hx Diphtheria, Pertussis, Tetanus Vaccination: Yes - 2010 Review of Systems - Review of Systems Notes: REVIEW OF SYSTEMS: CONSTITUTIONAL : Denies recent illness. Denies recent unintentional weight loss. Denies fever, chills, or sweats. EENT: Denies eye, ear, throat, or mouth pain, discharge, or symptoms. Denies nasal or sinus congestion. CARDIOVASCULAR: Denies chest pain. RESPIRATORY: Denies shortness of breath, cough, congestion, difficulty breathing, or wheezing. GASTROINTESTINAL: See HPI. GENITOURINARY: Denies difficulty urinating, burning, blood in urine, urgency or frequency. FEMALE GENITOURINARY: See HPI. MUSCULOSKELETAL: Denies neck and back pain. Denies joint pain or swelling. SKIN: Denies rash, itchiness, or lesions HEMATOLOGIC : Denies easy bruising or bleeding. LYMPHATIC: Denies swollen, painful, enlarged glands. NEUROLOGICAL: Denies no numbness or tingling denies weakness. Denies headache. Denies altered mental status. Denies alteration in speech. PSYCHIATRIC: Denies stress, anxiety, alteration in sleep patterns, or depression. All other systems reviewed and negative. Physical Exam - Vital signs Vitals: Temp Pulse Resp BP Pulse Ox 98.5 F 94 16 140/71 H 94 09/21/19 05:07 09/21/19 05:07 09/21/19 05:07 09/21/19 05:07 09/21/19 05:07 - Notes Notes: PHYSICAL EXAMINATION: GENERAL: Appears well, healthy, well-nourished, no acute distress. HEAD: Normocephalic, atraumatic. EYES: PERRL, conjunctiva normal, all extraocular movements intact, sclera nonicteric ENT: Dry mucous membranes. NECK: Supple, no noticeable swelling, redness, rash. Normal range of motion. LUNGS: Equal breath sounds bilaterally and clear to auscultation. No wheezes rales or rhonchi. CARDIOVASCULAR: S1-S2, regular rate, regular rhythm. Radial pulses 2+, normal. ABDOMEN: Normoactive bowel sounds. Soft, nontender, no guarding, no rebound tenderness, and no masses palpated. EXTREMITIES: Normal strength and range of motion, no pitting or edema. No cyanosis. NEUROLOGICAL: Moves all extremities upon command. Strength 5/5 in all extremities. PSYCH: Normal mood, normal affect. SKIN: Warm, dry. No rash, lesions, ulcerations noted. Normal skin turgor. Course - Re-evaluation Re-evalutation: 09/21/19 11:13 Patient states that she feels better after receiving vitamin B6, Maalox, and lidocaine. I will send her home with prescriptions for this. Her potassium was 3.4. It was replaced here in the ED. Follow-up precautions were given. She will follow up with OB. Verbal discharge instructions were given to the patient. They verbalized understanding. They are stable for discharge. - Vital Signs Vital signs: Temp Pulse Resp BP Pulse Ox 98.5 F 99 13 125/85 100 09/21/19 11:55 09/21/19 11:55 09/21/19 11:55 09/21/19 11:55 09/21/19 11:55 - Laboratory Result Diagrams: 09/21/19 05:30 09/21/19 05:30 Laboratory results interpreted by me: 09/21/19 09/21/19 09/21/19 05:30 05:30 07:27 RBC 3.36 L Hgb 10.1 L Hct 29.2 L Potassium 3.4 L Creatinine 0.40 L Urine Ketones TRACE H Ur Leukocyte Esterase SMALL H Discharge - Discharge Clinical Impression: Nausea and vomiting during Headache Qualifiers: Headache type: unspecified Headache chronicity pattern: unspecified pattern Int ractability: not intractable Qualified Code(s): R51 - Headache Condition: Stable Disposition: HOME, SELF-CARE Additional Instructions: You have been seen for vomiting during . You should continue to drink plenty of water and consider taking a solution such as Pedialyte if your having difficulty eating food. Please return if you become unable to drink any fluids for more than 12 hours, urinate less than twice a day, pass out, or have any other symptoms that are concerning to you. For nausea and vomiting during I recomment: Start with 10-12.5 mg of pyridoxine (vitamin B6) three times a day for 2 days. If not fully effective, Increase to 12.5 mg of pyridoxine four times a day for 2 days. If not fully effective, Increase to 25 mg of pyridoxine three times a day for 2 days. If not fully effective, Continue 25 mg pyridoxine 3 times a day, and add 12.5 mg of doxylamine before bedtime each day for 2 days. If not fully effective, Continue 25 mg pyridoxine 3 times a day, and take 12.5 mg of doxylamine twice a day. If not fully effective, Continue 25 mg pyridoxine 3 times a day, and take 12.5 mg of doxylamine three times a day. If not fully effective, Continue 25 mg pyridoxine 3 times a day, and 12.5 mg of doxylamine 3 times a day, while adding Emetrol, one to two tablespoons (15-30 cc) taken once or twice a day as needed. (Emetrol is an [id number] mixture of sugar syrups and phosphoric acid [phosphorylated carbohydrate solution]) that acts by soothing the actual wall of the gastrointestinal tract). If not fully effective, Consult with your doctor. You are also being sent home with Maalox and lidocaine to help with your symptoms. Use this as needed. Prescriptions: Mag Hydrox/Al Hydrox/Simeth [Maalox Plus Susp 30 Udcup] 15 ml PO Q6 PRN #30 udc PRN Reason: Heartburn Lidocaine HCl [Xylocaine 2% Viscous Soln 15 ml Udcup] 15 ml PO Q6H PRN #12 udc PRN Reason: Referrals: [facility] [Provider Group] - Follow up in 1 week
[2019-09-21] MEDS ORDERED: LIDOCAINE 2% VISCOUS SOLN 15 ML UDCUP PO ONE (09:40)
[2019-09-21] MEDS ORDERED: PYRIDOXINE HCL 50 MG TABLET PO ONE (09:40)
[2019-09-21] MEDS ORDERED: MAG HYDROX/AL HYDROX/SIMETH SUSP 30 ML UDCUP PO ONE (09:40)
[2019-09-21] MEDS ORDERED: ACETAMINOPHEN 325 MG TABLET PO ONE (10:06)
[2019-09-21] MEDS ORDERED: POTASSIUM CHLORIDE 20 MEQ PACKET PO ONE (11:38)
[2019-09-21 12:00] VITALS: BP 125/85
== END 2019-09-21 12:09 | disposition home or self-care (01) ==
LOC: ER 05:06
DX: O21.9 Vomiting of pregnancy, unspecified (principal); O26.892 Other specified pregnancy related conditions, second trimester; R51 Headache; R19.7 Diarrhea, unspecified; O16.2 Unspecified maternal hypertension, second trimester; Z3A.17 17 weeks gestation of pregnancy; Z88.8 Allergy status to other drugs, medicaments and biological substances; Z88.6 Allergy status to analgesic agent; Z88.5 Allergy status to narcotic agent
CPT/HCPCS: 99284; 96372; 96360; 96361; 36415; 85025; 80053; 81001; J3490 ×5; J1200; J2550; J7030

== ENCOUNTER 2019-10-06 17:28 | Emergency (ER) | payer MEDICAID ==
--- NOTE | 2019-10-06 17:41 | ER Document Report ---
ED Medical Screen (RME) - General Chief Complaint: Anxiety Stated Complaint: ANXIETY Time Seen by Provider: 10/06/19 17:40 Notes: 33-year-old female who is approximately 17 weeks presents for chest tightness and dyspnea. Patient states she takes clonazepam and misplaced her bottle. Lungs clear to auscultation bilaterally. Regular rate and rhythm. I have greeted and performed a rapid initial assessment of this patient. A comprehensive ED assessment and evaluation of the patient, analysis of test results and completion of the medical decision making process with be conducted by additional ED providers. TRAVEL OUTSIDE OF THE [place] IN LAST 30 DAYS: No - Related Data Allergies/Adverse Reactions: ketorolac tromethamine [From Toradol] Allergy (Verified 10/06/19 17:38) meperidine HCl [From Demerol] Allergy (Verified 10/06/19 17:38) metoclopramide HCl [From Reglan] Allergy (Verified 10/06/19 17:38) morphine [Morphine] Allergy (Verified 10/06/19 17:38) nalbuphine [From Nubain] Allergy (Verified 10/06/19 17:38) Hives prochlorperazine [From Compazine] Allergy (Verified 10/06/19 17:38) Hives tramadol [Tramadol] Allergy (Verified 10/06/19 17:38) Hives lamotrigine [From Lamictal] Adverse Reaction (Verified 10/06/19 17:38) Hives ondansetron HCl [From Zofran] Adverse Reaction (Verified 10/06/19 17:38) VOMITING Past Medical History - Social History Family history: None - Past Medical History Cardiac Medical History: Reports: Hx Hypertension Neurological Medical History: Reports: Hx Migraine Renal/ Medical History: Denies: Hx Peritoneal Dialysis Musculoskeltal Medical History: Reports Hx Musculoskeletal Trauma Psychiatric Medical History: Reports: Hx Anxiety, Hx Attention Deficit Hyperactivity Disorder, Hx Bipolar Disorder - Bipolar 1, Hx Depression, Hx Post Traumatic Stress Disorder Traumatic Medical History: Reports: Hx Fractures - nose Past Surgical History: Reports: Hx Abdominal Surgery - LAPROSCOPY, Hx Gynecologic Surgery - d&c, lap for endometriosis, Hx Nose Surgery - Reconstruction for fracture, Other - facial reconstruction - Immunizations Immunizations up to date: Yes Hx Diphtheria, Pertussis, Tetanus Vaccination: Yes - 2010
[2019-10-06 18:32] LABS: APPEARANCE,URINE SLIGHTLY-CLOUDY; BILIRUBIN,URINE NEGATIVE (NEGATIVE); COLOR,URINE YELLOW; GLUCOSE, URINE NEGATIVE (NEGATIVE); KETONES,URINE NEGATIVE (NEGATIVE); PROTEIN,URINE NEGATIVE (NEGATIVE); URINE SPECIFIC GRAVITY 1.005; UROBILINOGEN,URINE NEGATIVE mg/dL (<2.0)
[2019-10-06] MEDS ORDERED: CLONAZEPAM 1 MG TABLET PO ONE (18:49)
[2019-10-06 19:17] LABS: ABSOLUTE BASOPHILS # (AUTO) 0.1 10^3/uL (0.0-0.2); ABSOLUTE EOSINOPHILS # (AUTO) 0.3 10^3/uL (0.0-0.6); ABSOLUTE LYMPHOCYTES (AUTO) 1.8 10^3/uL (0.5-4.7); ABSOLUTE MONOCYTES (AUTO) 1.1 10^3/uL (0.1-1.4); ABSOLUTE NEUT (AUTO) 5.1 10^3/uL (1.7-8.2); BASOPHILS % (AUTO) 0.8 % (0-2); EOSINOPHILS % (AUTO) 3.4 % (0-6); HEMATOCRIT 29.3 % (36.0-47.0); HEMOGLOBIN 10.2 g/dL (12.0-15.5); LYMPHOCYTES % (AUTO) 21.3 % (13-45); MEAN CORPUSCULAR HEMOGLOBIN 30.1 pg (27.0-33.4); MEAN CORPUSCULAR VOLUME 86 fl (80-97); MONOCYTES % (AUTO) 12.8 % (3-13); PLATELET COUNT 184 10^3/uL (150-450); RED CELL DISTRIBUTION WIDTH 14.3 % (11.5-14.0); SEGMENTED NEUTROPHILS % (AUTO) 61.7 % (42-78); TOTAL CELLS COUNTED % (AUTO) 100 %; WHITE BLOOD COUNT 8.3 10^3/uL (4.0-10.5)
[2019-10-06 19:39] LABS: ALBUMIN 4.1 g/dL (3.5-5.0); ALKALINE PHOSPHATASE 78 U/L (38-126); ANION GAP 11 (5-19); ASPARTATE AMINO TRANSFERASE 25 U/L (14-36); BILIRUBIN,DIRECT 0.1 mg/dL (0.0-0.4); BILIRUBIN,TOTAL 0.5 mg/dL (0.2-1.3); BLOOD UREA NITROGEN 8 mg/dL (7-20); CALCIUM 9.8 mg/dL (8.4-10.2); CARBON DIOXIDE 22 mmol/L (22-30); CHLORIDE 102 mmol/L (98-107); GLUCOSE 84 mg/dL (75-110); POTASSIUM 3.8 mmol/L (3.6-5.0); TOTAL PROTEIN 7.3 g/dL (6.3-8.2)
--- NOTE | 2019-10-06 20:36 | EKG REPORT ---
SEVERITY:- OTHERWISE NORMAL ECG - SINUS TACHYCARDIA Nonspecific IVCD : Confirmed by: Dustin Andres MD 06-Oct-2019 20:35:31
[2019-10-06] MEDS ORDERED: ACETAMINOPHEN 325 MG TABLET ONE (21:04)
--- NOTE | 2019-10-06 21:09 | ER Document Report ---
ED General - General Chief Complaint: Anxiety Stated Complaint: ANXIETY Time Seen by Provider: 10/06/19 17:40 TRAVEL OUTSIDE OF THE [place] IN LAST 30 DAYS: No - HPI Notes: 33-year-old female 8 para 7 currently at 17 weeks EGA has history of PTSD and panic disorder and has been taking Klonopin 1 mg 3 times daily. Patient claims that she lost her prescription and comes in tonight with a panic attack. She denies hallucinations auditory or visual. She denies any intent to harm herself or others. She denies any abuse of street drugs or alcohol. Patient has established care at [facility] [place] [facility] department and says that she has had an ultrasound during this and was told she has a normal intrauterine . - Related Data Allergies/Adverse Reactions: ketorolac tromethamine [From Toradol] Allergy (Verified 10/06/19 17:38) meperidine HCl [From Demerol] Allergy (Verified 10/06/19 17:38) metoclopramide HCl [From Reglan] Allergy (Verified 10/06/19 17:38) morphine [Morphine] Allergy (Verified 10/06/19 17:38) nalbuphine [From Nubain] Allergy (Verified 10/06/19 17:38) Hives prochlorperazine [From Compazine] Allergy (Verified 10/06/19 17:38) Hives tramadol [Tramadol] Allergy (Verified 10/06/19 17:38) Hives lamotrigine [From Lamictal] Adverse Reaction (Verified 10/06/19 17:38) Hives ondansetron HCl [From Zofran] Adverse Reaction (Verified 10/06/19 17:38) VOMITING Past Medical History - General Information source: Patient, Relative - Social History Smoking Status: Current Every Day Smoker Chew tobacco use (# tins/day): No Frequency of alcohol use: None Drug Abuse: None Family History: Reviewed & Not Pertinent, Arthritis, DM, Hyperlipidemia, Hypertension Patient has suicidal ideation: No Patient has homicidal ideation: No - Past Medical History Cardiac Medical History: Reports: Hx Hypertension Neurological Medical History: Reports: Hx Migraine Renal/ Medical History: Denies: Hx Peritoneal Dialysis Musculoskeletal Medical History: Reports Hx Musculoskeletal Trauma Psychiatric Medical History: Reports: Hx Anxiety, Hx Attention Deficit Hyperactivity Disorder, Hx Bipolar Disorder - Bipolar 1, Hx Depression, Hx Post Traumatic Stress Disorder Traumatic Medical History: Reports: Hx Fractures - nose Past Surgical History: Reports: Hx Abdominal Surgery - LAPROSCOPY, Hx Gynecologic Surgery - d&c, lap for endometriosis, Hx Nose Surgery - Reconstruction for fracture, Other - facial reconstruction - Immunizations Immunizations up to date: Yes Hx Diphtheria, Pertussis, Tetanus Vaccination: Yes - 2010 Review of Systems - Review of Systems Notes: Constitutional: Negative for fever. HENT: Negative for sore throat. Eyes: Negative for visual changes. Cardiovascular: Negative for chest pain. Respiratory: Negative for shortness of breath. Gastrointestinal: Negative for abdominal pain, vomiting or diarrhea. Genitourinary: Negative for dysuria. Musculoskeletal: Negative for back pain. Skin: Negative for rash. Neurological: Negative for headaches, weakness or numbness. 10 point ROS negative except as marked above and in HPI. Physical Exam - Notes Notes: GENERAL: Female patient approximately stated age who appears very restless and anxious. SKIN: Good turgor no rashes. HEAD: Normocephalic atraumatic. EYES: PERRLA. EOMI. Conjunctivae and sclerae clear. EARS: CANALS AND TMS CLEAR. NOSE: CLEAR. MOUTH: Moist mucosa. Good dentition. No stridor or edema. No drooling. NECK: Supple. No masses or thyromegaly. No adenopathy. Carotids 2+ without bruits. No JVD. BACK: Symmetrical without tenderness. CHEST: Respirations unlabored. Breath sounds clear and symmetrical. HEART: Regular rhythm. No murmur gallop or rub. ABDOMEN: Gravid uterus with size consistent with dates. heart tones 140 by Doppler. Soft nontender without masses, hepatosplenomegaly or rebound. Bowel sounds normally active. No bruits. GENITALIA: Deferred. EXTREMITIES: No edema. No calf tenderness. Cap refill less than 1.5 seconds. Dorsalis pedis and posterior tibial pulses 3+ and symmetrical. NEUROLOGICAL: GCS 15. Alert and oriented x3. Normal gait. Fluent speech. Cranial nerves II through XII intact. Sensorimotor and cerebellar normal. Normal tone. PSYCHIATRIC: Appropriate affect. Course - Re-evaluation Re-evalutation: 10/06/19 21:10 Patient was given 1 dose of oral Klonopin here. She was rechecked approximately 45 minutes later and was very calm and comfortable. I reviewed her labs and they are unremarkable. Her blood pressure is 150/90 and this is consistent with values they have been obtaining in clinic. She has a history of chronic hypertension and is on alpha methyldopa. I advised her I would give her a prescription for 6 tablets of Klonopin until she can see her regular provider. - Laboratory Result Diagrams: 10/06/19 19:08 10/06/19 19:08 Laboratory results interpreted by me: 10/06/19 10/06/19 10/06/19 18:00 19:08 19:08 RBC 3.40 L Hgb 10.2 L Hct 29.3 L RDW 14.3 H Sodium 134.9 L Creatinine 0.51 L Leukocyte Esterase Rfl SMALL H Discharge - Discharge Clinical Impression: PTSD (post-traumatic stress disorder), IUP at 17 weeks EGA Condition: Stable Disposition: HOME, SELF-CARE Additional Instructions: Return here as needed for new or worsening symptoms. Follow-up with your primary care provider and OB clinic as soon as possible. Prescriptions: Clonazepam [Klonopin 1 mg Tablet] 1 mg PO TID 2 Days #6 tablet
[2019-10-06 21:14] VITALS: BP 116/78
== END 2019-10-06 21:29 | disposition home or self-care (01) ==
LOC: ER 17:28
DX: O99.342 Other mental disorders complicating pregnancy, second trimester (principal); F41.0 Panic disorder [episodic paroxysmal anxiety]; F41.9 Anxiety disorder, unspecified; O16.2 Unspecified maternal hypertension, second trimester; O99.332 Smoking (tobacco) complicating pregnancy, second trimester; F17.200 Nicotine dependence, unspecified, uncomplicated; Z3A.17 17 weeks gestation of pregnancy; Z79.899 Other long term (current) drug therapy; Z88.8 Allergy status to other drugs, medicaments and biological substances; Z88.6 Allergy status to analgesic agent; Z88.5 Allergy status to narcotic agent
CPT/HCPCS: 93005; 99283; 36415; 85025; 80053; 81001; 84484; 93010; J3490 ×2

== ENCOUNTER 2019-10-08 08:08 | Emergency (ER) | payer MEDICAID ==
[2019-10-08] MEDS ORDERED: PROMETHAZINE HCL INJ 25 MG/1 ML VIAL IM ONE ×2 (09:31→12:06)
[2019-10-08] MEDS ORDERED: DIPHENHYDRAMINE HCL 50 MG/ML VIAL IM ONE (09:31)
--- NOTE | 2019-10-08 09:49 | ER Document Report ---
Entered by KIMBER JUNIOR SCRIBE 10/08/19 0931 Acting as scribe for:GIANA GARCIA DO ED GI/ - General Chief Complaint: Nausea/Vomiting Stated Complaint: NAUSEA Time Seen by Provider: 10/08/19 09:10 Mode of Arrival: Ambulatory Information source: Patient Notes: This 33-year-old female patient presents to the emergency department today with complaints of vomiting which began at 0400 this morning. Patient states her last menstrual period was on June 10 and she is 17 weeks . Patient denies urinary symptoms, diarrhea, consumption of bad food, fevers, cough, cold, or runny nose. TRAVEL OUTSIDE OF THE [place] IN LAST 30 DAYS: No - Related Data Allergies/Adverse Reactions: ketorolac tromethamine [From Toradol] Allergy (Verified 10/06/19 17:38) meperidine HCl [From Demerol] Allergy (Verified 10/06/19 17:38) metoclopramide HCl [From Reglan] Allergy (Verified 10/06/19 17:38) morphine [Morphine] Allergy (Verified 10/06/19 17:38) nalbuphine [From Nubain] Allergy (Verified 10/06/19 17:38) Hives prochlorperazine [From Compazine] Allergy (Verified 10/06/19 17:38) Hives tramadol [Tramadol] Allergy (Verified 10/06/19 17:38) Hives lamotrigine [From Lamictal] Adverse Reaction (Verified 10/06/19 17:38) Hives ondansetron HCl [From Zofran] Adverse Reaction (Verified 10/06/19 17:38) VOMITING Past Medical History - General Information source: Patient - Social History Smoking Status: Current Every Day Smoker Cigarette use (# per day): Yes Frequency of alcohol use: None Drug Abuse: None Lives with: Family Family History: Reviewed & Not Pertinent, Arthritis, DM, Hyperlipidemia, Hypertension Patient has suicidal ideation: No Patient has homicidal ideation: No - Past Medical History Cardiac Medical History: Reports: Hx Hypertension Neurological Medical History: Reports: Hx Migraine Musculoskeletal Medical History: Reports Hx Musculoskeletal Trauma Psychiatric Medical History: Reports: Hx Anxiety, Hx Attention Deficit Hyperactivity Disorder, Hx Bipolar Disorder - Bipolar 1, Hx Depression, Hx Post Traumatic Stress Disorder Traumatic Medical History: Reports: Hx Fractures - nose Past Surgical History: Reports: Hx Abdominal Surgery - LAPROSCOPY, Hx Gynecologic Surgery - d&c, lap for endometriosis, Hx Nose Surgery - Re construction for fracture, Other - facial reconstruction - Immunizations Immunizations up to date: Yes Hx Diphtheria, Pertussis, Tetanus Vaccination: Yes - 2010 Review of Systems - Review of Systems Constitutional: No symptoms reported EENT: No symptoms reported Cardiovascular: No symptoms reported Respiratory: No symptoms reported Gastrointestinal: See HPI, Nausea, Vomiting Genitourinary: No symptoms reported Female Genitourinary: See HPI, - 17 weeks Musculoskeletal: No symptoms reported Skin: No symptoms reported Hematologic/Lymphatic: No symptoms reported Neurological/Psychological: No symptoms reported -: Yes All other systems reviewed and negative Physical Exam - Vital signs Vitals: Temp Pulse Resp BP Pulse Ox 98.3 F 120 H 18 117/76 99 10/08/19 08:17 10/08/19 08:17 10/08/19 08:17 10/08/19 08:17 10/08/19 08:17 - Notes Notes: Physical Exam: General: Alert, appears at baseline. HEENT: Normocephalic. Atraumatic. PERRL. Extraocular movements intact. Oropharynx clear. Extremely poor dentition throughout. Neck: Supple. Non-tender. Respiratory: No respiratory distress. Clear and equal breath sounds bilaterally. Cardiovascular: Regular rate and rhythm. Abdominal: Normal Inspection. Non-tender. No distension. Normal Bowel Sounds. Back: No gross abnormalities. Extremities: Moves all four extremities. Upper extremities: Normal inspection. Normal ROM. Lower extremities: Normal inspection. No edema. Normal ROM. Neurological: Normal cognition. AAOx4. Normal speech. Psychological: Normal affect. Normal Mood. Skin: Warm. Dry. Normal color. Course - Re-evaluation Re-evalutation: 10/08/19 12:51 MDM Pt is eating. Feels better. Not much nausea anymore. Potassium a touch high but feels may be slight hemolysis and also should dilute out as she rehydrates. Return here discussion had. - Vital Signs Vital signs: Temp Pulse Resp BP Pulse Ox 98.3 F 120 H 19 111/73 97 10/08/19 08:17 10/08/19 08:17 10/08/19 12:01 10/08/19 12:01 10/08/19 12:01 - Laboratory Result Diagrams: 10/08/19 11:04 10/08/19 12:06 Laboratory results interpreted by me: 10/08/19 10/08/19 10/08/19 10:00 11:04 12:06 WBC 13.1 H Lymph % (Auto) 5.8 L Absolute Neuts (auto) 11.5 H Seg Neutrophils % 88.2 H Sodium 134.6 L Potassium 5.3 H Carbon Dioxide 17 L Urine Protein 30 H Urine Ketones TRACE H Urine Urobilinogen 2.0 H Ur Leukocyte Esterase TRACE H Urine Ascorbic Acid 20 H Discharge - Discharge Clinical Impression: Vomiting Qualifiers: Vomiting type: unspecified Vomiting Intractability: non-intractable Nausea presence: with nausea Qualified Code(s): R11.2 - Nausea with vomiting, unspeci fied Qualifiers: Weeks of gestation: 17 weeks Qualified Code(s): Z3A.17 - 17 weeks gestation of Condition: Good Disposition: HOME, SELF-CARE Instructions: Antinausea Medication ([facility]), Vomiting ([facility]) Additional Instructions: Clear liquids for 24 hours. Rest, please return here for any problems or any concerns. Prescriptions: Promethazine HCl [Phenergan 25 mg Supp.rect] 1 supp MI Q6H #12 supp.rect I personally performed the services described in the documentation, reviewed and edited the documentation which was dictated to the scribe in my presence, and it accurately records my words and actions.
[2019-10-08 10:33] LABS: APPEARANCE,URINE SLIGHTLY-CLOUDY; BILIRUBIN,URINE NEGATIVE (NEGATIVE); COLOR,URINE AMBER; GLUCOSE, URINE NEGATIVE (NEGATIVE); KETONES,URINE TRACE mg/dL (NEGATIVE); LEUKOCYTE ESTERASE,URINE TRACE (NEGATIVE); NITRITE,URINE NEGATIVE (NEGATIVE); PROTEIN,URINE 30 mg/dL (NEGATIVE); URINE SPECIFIC GRAVITY 1.029
[2019-10-08 11:40] LABS: ABSOLUTE EOSINOPHILS # (AUTO) 0.1 10^3/uL (0.0-0.6); ABSOLUTE LYMPHOCYTES (AUTO) 0.8 10^3/uL (0.5-4.7); ABSOLUTE MONOCYTES (AUTO) 0.7 10^3/uL (0.1-1.4); ABSOLUTE NEUT (AUTO) 11.5 10^3/uL (1.7-8.2); BASOPHILS % (AUTO) 0.1 % (0-2); EOSINOPHILS % (AUTO) 0.6 % (0-6); HEMATOCRIT 36.7 % (36.0-47.0); HEMOGLOBIN 12.1 g/dL (12.0-15.5); LYMPHOCYTES % (AUTO) 5.8 % (13-45); MEAN CORPUSCULAR HEMOGLOBIN 28.8 pg (27.0-33.4); MEAN CORPUSCULAR HGB CONC 32.9 g/dL (32.0-36.0); MEAN CORPUSCULAR VOLUME 88 fl (80-97); MONOCYTES % (AUTO) 5.3 % (3-13); RED BLOOD COUNT 4.19 10^6/uL (3.72-5.28); RED CELL DISTRIBUTION WIDTH 13.8 % (11.5-14.0); SEGMENTED NEUTROPHILS % (AUTO) 88.2 % (42-78); TOTAL CELLS COUNTED % (AUTO) 100 %; WHITE BLOOD COUNT 13.1 10^3/uL (4.0-10.5)
[2019-10-08 12:02] LABS: PLATELET COUNT 183 10^3/uL (150-450)
[2019-10-08 12:35] LABS: ALBUMIN 4.4 g/dL (3.5-5.0); ALKALINE PHOSPHATASE 81 U/L (38-126); ANION GAP 13 (5-19); ASPARTATE AMINO TRANSFERASE 21 U/L (14-36); BILIRUBIN,TOTAL 0.6 mg/dL (0.2-1.3); BLOOD UREA NITROGEN 19 mg/dL (7-20); CALCIUM 9.5 mg/dL (8.4-10.2); CARBON DIOXIDE 17 mmol/L (22-30); CHLORIDE 105 mmol/L (98-107); GLUCOSE 94 mg/dL (75-110); POTASSIUM 5.3 mmol/L (3.6-5.0); TOTAL PROTEIN 7.6 g/dL (6.3-8.2)
[2019-10-08 13:07] VITALS: BP 119/75
== END 2019-10-08 13:09 | disposition home or self-care (01) ==
LOC: ER 08:08
DX: O21.9 Vomiting of pregnancy, unspecified (principal); O16.1 Unspecified maternal hypertension, first trimester; O99.331 Smoking (tobacco) complicating pregnancy, first trimester; F17.210 Nicotine dependence, cigarettes, uncomplicated; Z3A.17 17 weeks gestation of pregnancy
CPT/HCPCS: 99284; 96372; 36415; 85025; 80053; 81001; J1200; J2550

== ENCOUNTER 2019-10-28 18:43 | Emergency (ER) | payer MEDICAID ==
--- NOTE | 2019-10-28 19:48 | ER Document Report ---
ED Medical Screen (RME) - General Chief Complaint: Vomiting/Diarrhea Stated Complaint: VOMITING,DIARRHEA,JAW PAIN/SWELLING Time Seen by Provider: 10/28/19 19:44 Mode of Arrival: Ambulatory Information source: Patient Notes: 36-year-old female presents to ED for complaint of nausea vomiting and diarrhea. She states the diarrhea has been for the last 2 days. She has hyperemesis gravidarum and is about 5 months . States she is vomited about 8 times today. She states she also has swelling to the left side of her jaw. Has cavities to the back 4 teeth on the left bottom. We will give her a shot of Rocephin at this time and a shot of Phenergan and to get blood and urine to see how dehydrated she is as she states she has vomited about 8 times today. I have greeted and performed a rapid initial assessment of this patient. A comprehensive ED assessment and evaluation of the patient, analysis of test results and completion of medical decision making process will be conducted by an additional ED providers. TRAVEL OUTSIDE OF THE [place] IN LAST 30 DAYS: No - Related Data Allergies/Adverse Reactions: ketorolac tromethamine [From Toradol] Allergy (Verified 10/28/19 19:46) meperidine HCl [From Demerol] Allergy (Verified 10/28/19 19:46) metoclopramide HCl [From Reglan] Allergy (Verified 10/28/19 19:46) morphine [Morphine] Allergy (Verified 10/28/19 19:46) nalbuphine [From Nubain] Allergy (Verified 10/28/19 19:46) Hives prochlorperazine [From Compazine] Allergy (Verified 10/28/19 19:46) Hives tramadol [Tramadol] Allergy (Verified 10/28/19 19:46) Hives lamotrigine [From Lamictal] Adverse Reaction (Verified 10/28/19 19:46) Hives ondansetron HCl [From Zofran] Adverse Reaction (Verified 10/28/19 19:46) VOMITING Past Medical History - Social History Family history: None - Past Medical History Cardiac Medical History: Reports: Hx Hypertension Neurological Medical History: Reports: Hx Migraine Renal/ Medical History: Denies: Hx Peritoneal Dialysis Musculoskeltal Medical History: Reports Hx Musculoskeletal Trauma Psychiatric Medical History: Reports: Hx Anxiety, Hx Attention Deficit Hyperactivity Disorder, Hx Bipolar Disorder - Bipolar 1, Hx Depression, Hx Post Traumatic Stress Disorder Traumatic Medical History: Reports: Hx Fractures - nose Past Surgical History: Reports: Hx Abdominal Surgery - LAPROSCOPY, Hx Gynecologic Surgery - d&c, lap for endometriosis, Hx Nose Surgery - Reconstruction for fracture, Other - facial reconstruction - Immunizations Immunizations up to date: Yes Hx Diphtheria, Pertussis, Tetanus Vaccination: Yes - 2010 Physical Exam - Vital signs Vitals: Temp Pulse Resp BP Pulse Ox 98.5 F 117 H 18 138/76 H 100 10/28/19 19:05 10/28/19 19:05 10/28/19 19:05 10/28/19 19:05 10/28/19 19:05 Course - Vital Signs Vital signs: Temp Pulse Resp BP Pulse Ox 98.5 F 117 H 18 138/76 H 100 10/28/19 19:05 10/28/19 19:05 10/28/19 19:05 10/28/19 19:05 10/28/19 19:05
[2019-10-28] MEDS ORDERED: PROMETHAZINE HCL INJ 25 MG/1 ML VIAL IM ONE ×2 (19:51→21:24)
[2019-10-28] MEDS ORDERED: CEFTRIAXONE INJ 1000 MG VIAL IM ONE (19:52)
[2019-10-28] MEDS ORDERED: DIPHENHYDRAMINE HCL 50 MG/ML VIAL IM ONE (19:52)
[2019-10-28] MEDS ORDERED: LIDOCAINE 1% INJ-PF (10 MG/ML) 30 ML SDV IM ONE (19:52)
[2019-10-28] MEDS ORDERED: NORMAL SALINE 1000 ML 1,000 ML IV ONE (19:53)
[2019-10-28 20:29] LABS: APPEARANCE,URINE CLOUDY; BILIRUBIN,URINE NEGATIVE (NEGATIVE); COLOR,URINE AMBER; GLUCOSE, URINE NEGATIVE (NEGATIVE); KETONES,URINE TRACE mg/dL (NEGATIVE); PROTEIN,URINE NEGATIVE (NEGATIVE); UROBILINOGEN,URINE NEGATIVE mg/dL (<2.0)
[2019-10-28 20:39] LABS: ALBUMIN 3.9 g/dL (3.5-5.0); ALKALINE PHOSPHATASE 58 U/L (38-126); ANION GAP 9 (5-19); ASPARTATE AMINO TRANSFERASE 17 U/L (14-36); BILIRUBIN,TOTAL 0.3 mg/dL (0.2-1.3); BLOOD UREA NITROGEN 14 mg/dL (7-20); CALCIUM 10.1 mg/dL (8.4-10.2); CARBON DIOXIDE 24 mmol/L (22-30); CHLORIDE 102 mmol/L (98-107); GLUCOSE 95 mg/dL (75-110); POTASSIUM 3.8 mmol/L (3.6-5.0)
[2019-10-28 20:57] LABS: HEMATOCRIT 28.6 % (36.0-47.0); HEMOGLOBIN 10.1 g/dL (12.0-15.5); MEAN CORPUSCULAR HEMOGLOBIN 31.1 pg (27.0-33.4); MEAN CORPUSCULAR HGB CONC 35.3 g/dL (32.0-36.0); MEAN CORPUSCULAR VOLUME 88 fl (80-97); PLATELET COUNT 173 10^3/uL (150-450); RED BLOOD COUNT 3.24 10^6/uL (3.72-5.28); RED CELL DISTRIBUTION WIDTH 14.2 % (11.5-14.0); WHITE BLOOD COUNT 9.7 10^3/uL (4.0-10.5)
[2019-10-28 21:08] LABS: ABSOLUTE LYMPHOCYTES# (MANUAL) 2.1 10^3/uL (0.5-4.7); ABSOLUTE MONOCYTES # (MANUAL) 0.4 10^3/uL (0.1-1.4); BASOPHILS % (MANUAL) 0 % (0-2); EOSINOPHILS % (MANUAL) 1 % (0-6); LYMPHOCYTES % (MANUAL) 22 % (13-45); MONOCYTES % (MANUAL) 4 % (3-13); SEGMENTED NEUTROPHILS % (MAN) 73 % (42-78); TOTAL CELLS COUNTED 100
[2019-10-28 21:09] LABS: ANISOCYTOSIS SLIGHT; TOXIC GRANULATION SLIGHT
[2019-10-28 21:10] LABS: PLATELET COMMENT ADEQUATE; TEAR DROP CELLS SLIGHT
--- NOTE | 2019-10-28 21:13 | ER Document Report ---
ED General - General Chief Complaint: Nausea/Vomiting Stated Complaint: VOMITING,DIARRHEA,JAW PAIN/SWELLING Time Seen by Provider: 10/28/19 19:44 Mode of Arrival: Ambulatory Notes: Patient is a 36-year-old female that comes emergency department for 2 complaints. First complaint is she vomited 8 times today and she is getting dehydrated. She has also had several loose stools. She is G8, P6 at 20 weeks gestation by first trimester ultrasound. She has her 20-week survey in 3 days. She also reports that over the past day or so she has had swelling to the left side of her jaw and pain in her lower teeth. She has multiple dental caries, she does not currently have a dentist. She received Rocephin, Phenergan, B enadryl, IV fluids from triage. She is on iron for anemia. She denies abdominal pain, she denies vaginal bleeding or discharge, she states she is feeling baby moving normally. TRAVEL OUTSIDE OF THE [place] IN LAST 30 DAYS: No - Related Data Allergies/Adverse Reactions: ketorolac tromethamine [From Toradol] Allergy (Verified 10/28/19 19:46) meperidine HCl [From Demerol] Allergy (Verified 10/28/19 19:46) metoclopramide HCl [From Reglan] Allergy (Verified 10/28/19 19:46) morphine [Morphine] Allergy (Verified 10/28/19 19:46) nalbuphine [From Nubain] Allergy (Verified 10/28/19 19:46) Hives prochlorperazine [From Compazine] Allergy (Verified 10/28/19 19:46) Hives tramadol [Tramadol] Allergy (Verified 10/28/19 19:46) Hives lamotrigine [From Lamictal] Adverse Reaction (Verified 10/28/19 19:46) Hives ondansetron HCl [From Zofran] Adverse Reaction (Verified 10/28/19 19:46) VOMITING Past Medical History - General Information source: Patient - Social History Smoking Status: Current Every Day Smoker Chew tobacco use (# tins/day): No Frequency of alcohol use: None Drug Abuse: None Lives with: Family Family History: Reviewed & Not Pertinent, Arthritis, DM, Hyperlipidemia, Hypertension Patient has suicidal ideation: No Patient has homicidal ideation: No - Past Medical History Cardiac Medical History: Reports: Hx Hypertension Neurological Medical History: Reports: Hx Migraine Renal/ Medical History: Denies: Hx Peritoneal Dialysis Musculoskeletal Medical History: Reports Hx Musculoskeletal Trauma Psychiatric Medical History: Reports: Hx Anxiety, Hx Attention Deficit Hyperactivity Disorder, Hx Bipolar Disorder - Bipolar 1, Hx Depression, Hx Post Traumatic Stress Disorder Traumatic Medical History: Reports: Hx Fractures - nose Past Surgical History: Reports: Hx Abdominal Surgery - LAPROSCOPY, Hx Gynecologic Surgery - d&c, lap for endometriosis, Hx Nose Surgery - Reconstruction for fracture, Other - facial reconstruction - Immunizations Immunizations up to date: Yes Hx Diphtheria, Pertussis, Tetanus Vaccination: Yes - 2010 Review of Systems - Review of Systems Constitutional: See HPI EENT: See HPI Cardiovascular: No symptoms reported Respiratory: No symptoms reported Gastrointestinal: See HPI Genitourinary: No symptoms reported Female Genitourinary: See HPI Musculoskeletal: No symptoms reported Skin: No symptoms reported Hematologic/Lymphatic: No symptoms reported Neurological/Psychological: No symptoms reported Physical Exam - Vital signs Vitals: Temp Pulse Resp BP Pulse Ox 98.5 F 117 H 18 138/76 H 100 10/28/19 19:05 10/28/19 19:05 10/28/19 19:05 10/28/19 19:05 10/28/19 19:05 - Notes Notes: GENERAL: Alert, interacts well. No acute distress. HEAD: Normocephalic, atraumatic. EYES: Pupils equal, round, and reactive to light. Extraocular movements intact. ENT: Oral mucosa moist, tongue midline. Oropharynx unremarkable. Terrible dentition, left inferior gumline with some erythema and tenderness beneath d ental caries in the anterior jawline, no drainable abscesses noted. No significant swelling of the face. No trismus. Airway patent. Nares patent, no nasal septal hematoma, TM's intact. NECK: Full range of motion. Supple. Trachea midline. No evidence of Carlos's angina. LUNGS: Clear to auscultation bilaterally, no wheezes, rales, or rhonchi. No respiratory distress. HEART: Regular rate and rhythm. No murmur ABDOMEN: Soft, non-tender. Non-distended. Gravid abdomen. EXTREMITIES: Moves all 4 extremities spontaneously. No edema, normal radial and dorsalis pedis pulses bilaterally. No cyanosis. BACK: no cervical, thoracic, lumbar midline tenderness. No saddle anesthesia, normal distal neurovascular exam. Moves all extremities in full range of motion. NEUROLOGICAL: Alert and oriented x3. Normal speech. Cranial nerves II through XII grossly intact. PSYCH: Normal affect, normal mood. SKIN: Warm, dry, normal turgor. No rashes or lesions noted. Course - Re-evaluation Re-evalutation: Patient is talkative and well-appearing on exam. She is not tachycardic on my exam. Abdomen is soft and benign. Patient states she feels a lot better after treatments from triage including IV fluids. CBC shows no leukocytosis, shows anemia which is approximately baseline. Chemistry unremarkable. Urine nonspecific and cultured. Patient is stating she would like to be medicated once more, and she would like to drink fluids and eat crackers before discharge. Patient did this without any difficulty, she tolerated p.o. well, stable and asymptomatic at time of discharge. She states she already has Phenergan for home. In regards to her dental infection, she does have an area of erythema to the left lower gumline but there is no drainable abscess or significant swelling of the face. Starting on antibiotics (amoxicillin), referred to dentist on request. Discussed details and return precautions regards to this as well. Patient states understanding and agreement. - Vital Signs Vital signs: Temp Pulse Resp BP Pulse Ox 98.5 F 107 H 18 124/73 100 10/28/19 22:43 10/28/19 22:43 10/28/19 22:43 10/28/19 22:43 10/28/19 22:43 - Laboratory Result Diagrams: 10/28/19 20:00 10/28/19 20:00 Laboratory results interpreted by me: 10/28/19 10/28/19 10/28/19 20:00 20:00 20:02 RBC 3.24 L Hgb 10.1 L Hct 28.6 L RDW 14.2 H Sodium 135.4 L Urine Ketones TRACE H Leukocyte Esterase Rfl MODERATE H Discharge - Discharge Clinical Impression: Pain, dental, Dental infection, Vomiting affecting , Dehydration Condition: Stable Disposition: HOME, SELF-CARE Additional Instructions: You have been treated for vomiting or dehydration affecting . Take your Phenergan at home, with bland food, continue to rehydrate. Your evaluation is also consistent with a dental infection. Take amoxicillin as prescribed, use the lidocaine if needed, take Tylenol for pain additionally if needed. Call and follow-up with the dental referral listed below for additional management. Return if you worsen including increased swelling of face, uncontrolled vomiting, spiking fevers, developing abdominal pain, or any other concerning symptoms. [facility] [address] [facility] [place], [address] Prescriptions: Amoxicillin Trihydrate [Amoxil 250 mg/5 ml Susp (ER Disp)] 500 mg PO BID 10 Days #20 bottle Lidocaine HCl [Xylocaine 2% Viscous Soln 15 ml Udcup] 15 ml PO TID PRN #1 udc PRN Reason:
[2019-10-28] MEDS ORDERED: LIDOCAINE 2% VISCOUS SOLN 15 ML UDCUP PO ONE (21:23)
[2019-10-28] MEDS ORDERED: ACETAMINOPHEN 325 MG TABLET PO ONE (21:46)
[2019-10-28] MEDS ORDERED: DIPHENHYDRAMINE HCL 50 MG/ML VIAL IV ONE (22:18)
[2019-10-28 22:48] VITALS: BP 124/73
== END 2019-10-28 22:51 | disposition home or self-care (01) ==
LOC: ER 18:43
DX: O21.2 Late vomiting of pregnancy (principal); O99.612 Diseases of the digestive system complicating pregnancy, second trimester; K04.7 Periapical abscess without sinus; K02.9 Dental caries, unspecified; O99.282 Endocrine, nutritional and metabolic diseases complicating pregnancy, second trimester; E86.0 Dehydration; K08.89 Other specified disorders of teeth and supporting structures; R19.4 Change in bowel habit; O26.892 Other specified pregnancy related conditions, second trimester; O16.2 Unspecified maternal hypertension, second trimester; O99.332 Smoking (tobacco) complicating pregnancy, second trimester; F17.200 Nicotine dependence, unspecified, uncomplicated; O99.012 Anemia complicating pregnancy, second trimester; D64.9 Anemia, unspecified; Z79.899 Other long term (current) drug therapy; Z3A.20 20 weeks gestation of pregnancy; Z88.8 Allergy status to other drugs, medicaments and biological substances; Z88.6 Allergy status to analgesic agent; Z88.5 Allergy status to narcotic agent
CPT/HCPCS: 99284; 96372; 96360; 36415; 87086; 85025; 87088; 80053; 81001; 87186; J3490 ×3; J1200; J2550; J0696; J7030

== ENCOUNTER → 2019-10-30 | Outpatient (CLI) | payer MEDICAID ==
--- NOTE | 2019-10-30 16:21 | RADIOLOGY REPORT (SQ) ---
EXAM DESCRIPTION: U/S OB 14+ TRNABD 1GES W/O DOP COMPLETED DATE/TIME: 10/30/2019 4:02 pm REASON FOR STUDY: ENCTR FOR SUPERVISION OF OTHER NORMAL , 2ND TRIMESTER (Z34.82) Z34.82 EN COUNTER FOR SUPRVSN OF NORMAL , SECOND TRI COMPARISON: None. TECHNIQUE: Static and Dynamic grayscale imaging performed of gravid uterus using transabdominal appr oach. Additional selected color Doppler and spectral images recorded. All stored on PACS. LIMITATIONS: None. FINDINGS: FETUSES SEEN:1 EGA: 21 weeks 0 days Calculated using BPD,FL,HC,AC documented on images. No discrepancy with clinica l dates. KRISTEN: 03/11/2020 EFW: 410 grams PERCENTILE: Not calculated. TONYA: 9.8 cm PLACENTA: Posterior grade 1 PRESENTATION: Breech/variable ANATOMY: HEART RATE: 150 beats per minute. FOUR CHAMBER HEART: Visualized. THREE VESSEL CORD: Yes. CORD INSERTION: Visualized. KIDNEYS AND BLADDER: Visualized. Appear normal. STOMACH: Visualized. Appears normal. SPINE: Evaluation of the spine is less than optimal because of positioning. BRAIN AND LATERAL VENTRICLES: Visualized. Appear normal. OTHER: No other significant finding. MATERNAL ADNEXA: Maternal ovaries not visualized. CERVICAL LENGTH: 2.7 cm. Closed. OTHER: No other significant finding. IMPRESSION: LIVING INTRAUTERINE . ESTIMATED GESTATIONAL AGE 21 weeks 0 days NO VISUALIZED ANOMALIES. Trimester of : Second trimester - 13 weeks 1 day to 27 weeks 6 days. TECHNICAL DOCUMENTATION: JOB ID: [id number] 2010 [employer] All Rights Reserved Reading location - IP/workstation name: [email or web address]
== END ==
LOC: RAD 13:49
PROVIDERS: ATTEND Midwife
DX: Z34.82 Encounter for supervision of other normal pregnancy, second trimester (principal); Z3A.21 21 weeks gestation of pregnancy
CPT/HCPCS: 76805

== ENCOUNTER 2019-11-28 15:51 | Emergency (ER) | payer MEDICAID ==
[2019-11-28] MEDS ORDERED: NORMAL SALINE 1000 ML 1,000 ML IV ONE (16:00)
[2019-11-28] MEDS ORDERED: PROMETHAZINE HCL INJ 25 MG/1 ML VIAL IV ONE (16:01)
--- NOTE | 2019-11-28 16:02 | ER Document Report ---
ED Medical Screen (RME) - General Chief Complaint: Vomiting/Diarrhea Stated Complaint: LIGHTHEADED,VOMITING,DIARRHEA Time Seen by Provider: 11/28/19 15:54 Mode of Arrival: Wheelchair Information source: Patient Notes: 34-year-old female patient presents to the emergency department chief complaint of vomiting in the setting of . Patient reports she is 20 weeks , states she has been diagnosed with hyperemesis gravidarum. She states she has vomited 5 times today. She states she cannot keep anything down despite taking her Phenergan suppositories. She denies any abdominal pain or cramping. Exam: Gravid abdomen noted. I have greeted and performed a rapid initial assessment of this patient. A comprehensive ED assessment and evaluation of the patient, analysis of test results and completion of the medical decision making process will be conducted by additional ED providers. I have specifically instructed the patient or family members with the patient to immediately return to any nursing staff should anything change in the patient's condition or with their chief complaint. TRAVEL OUTSIDE OF THE [place] IN LAST 30 DAYS: No - Related Data Allergies/Adverse Reactions: ketorolac tromethamine [From Toradol] Allergy (Verified 10/28/19 19:46) meperidine HCl [From Demerol] Allergy (Verified 10/28/19 19:46) metoclopramide HCl [From Reglan] Allergy (Verified 10/28/19 19:46) morphine [Morphine] Allergy (Verified 10/28/19 19:46) nalbuphine [From Nubain] Allergy (Verified 10/28/19 19:46) Hives prochlorperazine [From Compazine] Allergy (Verified 10/28/19 19:46) Hives tramadol [Tramadol] Allergy (Verified 10/28/19 19:46) Hives lamotrigine [From Lamictal] Adverse Reaction (Verified 10/28/19 19:46) Hives ondansetron HCl [From Zofran] Adverse Reaction (Verified 10/28/19 19:46) VOMITING Past Medical History - Social History Family history: None - Past Medical History Cardiac Medical History: Reports: Hx Hypertension Neurological Medical History: Reports: Hx Migraine Renal/ Medical History: Denies: Hx Peritoneal Dialysis Musculoskeltal Medical History: Reports Hx Musculoskeletal Trauma Psychiatric Medical History: Reports: Hx Anxiety, Hx Attention Deficit Hyperactivity Disorder, Hx Bipolar Disorder - Bipolar 1, Hx Depression, Hx Post Traumatic Stress Disorder Traumatic Medical History: Reports: Hx Fractures - nose Past Surgical History: Reports: Hx Abdominal Surgery - LAPROSCOPY, Hx Gynecologic Surgery - d&c, lap for endometriosis, Hx Nose Surgery - Reconstruction for fracture, Other - facial reconstruction - Immunizations Immunizations up to date: Yes Hx Diphtheria, Pertussis, Tetanus Vaccination: Yes - 2010 Physical Exam - Vital signs Vitals: Temp Pulse Resp BP Pulse Ox 98.2 F 114 H 16 128/82 H 99 11/28/19 15:54 11/28/19 15:54 11/28/19 15:54 11/28/19 15:54 11/28/19 15:54 Course - Vital Signs Vital signs: Temp Pulse Resp BP Pulse Ox 98.2 F 114 H 16 128/82 H 99 11/28/19 15:54 11/28/19 15:54 11/28/19 15:54 11/28/19 15:54 11/28/19 15:54
[2019-11-28 16:44] LABS: ABSOLUTE BASOPHILS # (AUTO) 0.1 10^3/uL (0.0-0.2); ABSOLUTE EOSINOPHILS # (AUTO) 0.3 10^3/uL (0.0-0.6); ABSOLUTE LYMPHOCYTES (AUTO) 1.8 10^3/uL (0.5-4.7); ABSOLUTE MONOCYTES (AUTO) 0.8 10^3/uL (0.1-1.4); ABSOLUTE NEUT (AUTO) 6.1 10^3/uL (1.7-8.2); BASOPHILS % (AUTO) 0.8 % (0-2); EOSINOPHILS % (AUTO) 3.1 % (0-6); HEMATOCRIT 27.6 % (36.0-47.0); HEMOGLOBIN 9.5 g/dL (12.0-15.5); LYMPHOCYTES % (AUTO) 19.7 % (13-45); MEAN CORPUSCULAR HEMOGLOBIN 30.7 pg (27.0-33.4); MEAN CORPUSCULAR HGB CONC 34.5 g/dL (32.0-36.0); MEAN CORPUSCULAR VOLUME 89 fl (80-97); MONOCYTES % (AUTO) 8.6 % (3-13); PLATELET COUNT 174 10^3/uL (150-450); RED CELL DISTRIBUTION WIDTH 13.8 % (11.5-14.0); SEGMENTED NEUTROPHILS % (AUTO) 67.8 % (42-78); TOTAL CELLS COUNTED % (AUTO) 100 %
[2019-11-28 16:51] LABS: APPEARANCE,URINE CLEAR; BILIRUBIN,URINE NEGATIVE (NEGATIVE); COLOR,URINE YELLOW; GLUCOSE, URINE NEGATIVE (NEGATIVE); KETONES,URINE TRACE mg/dL (NEGATIVE); PROTEIN,URINE NEGATIVE (NEGATIVE); URINE SPECIFIC GRAVITY 1.016; UROBILINOGEN,URINE NEGATIVE mg/dL (<2.0)
[2019-11-28] MEDS ORDERED: CEFTRIAXONE INJ 1000 MG VIAL IV ONE (16:55)
[2019-11-28] MEDS ORDERED: CEFTRIAXONE 1 GM/D5W RTU 1 GM/50 ML RTUPB IV ONE (17:06)
[2019-11-28 17:07] LABS: ALBUMIN 3.8 g/dL (3.5-5.0); ALKALINE PHOSPHATASE 77 U/L (38-126); ANION GAP 8 (5-19); ASPARTATE AMINO TRANSFERASE 26 U/L (14-36); BILIRUBIN,TOTAL 0.2 mg/dL (0.2-1.3); BLOOD UREA NITROGEN 8 mg/dL (7-20); CALCIUM 10.3 mg/dL (8.4-10.2); CARBON DIOXIDE 21 mmol/L (22-30); CHLORIDE 107 mmol/L (98-107); GLUCOSE 84 mg/dL (75-110); POTASSIUM 3.8 mmol/L (3.6-5.0); TOTAL PROTEIN 7.2 g/dL (6.3-8.2)
[2019-11-28] MEDS: DIPHENHYDRAMINE HCL 50 MG/ML VIAL IV ONE ×2 (17:10→17:30)
[2019-11-28] MEDS ORDERED: PROMETHAZINE HCL INJ 25 MG/1 ML VIAL IM ONE (17:35)
[2019-11-28] MEDS ORDERED: DIPHENHYDRAMINE HCL 50 MG/ML VIAL IM ONE (17:35)
[2019-11-28] MEDS ORDERED: LIDOCAINE 2% VISCOUS SOLN 15 ML UDCUP PO ONE (17:36)
[2019-11-28 18:18] VITALS: BP 120/79
--- NOTE | 2019-11-28 18:29 | ER Document Report ---
ED General - General Chief Complaint: Nausea/Vomiting/Diarrhea Stated Complaint: LIGHTHEADED,VOMITING,DIARRHEA Time Seen by Provider: 11/28/19 15:54 Mode of Arrival: Wheelchair Information source: Patient Notes: This 34-year-old woman presents to the emergency department history of 26-week intrauterine 8 para 7 complaining of nausea and vomiting related to the . Apparently she is on promethazine and Benadryl at home, was unable to keep the medications down and has not been able to keep fluids down for the past 24 hours. She complains of mild dizziness and lig htheadedness. Denies syncope or abdominal pain. TRAVEL OUTSIDE OF THE [place] IN LAST 30 DAYS: No - Related Data Allergies/Adverse Reactions: ketorolac tromethamine [From Toradol] Allergy (Verified 10/28/19 19:46) meperidine HCl [From Demerol] Allergy (Verified 10/28/19 19:46) metoclopramide HCl [From Reglan] Allergy (Verified 10/28/19 19:46) morphine [Morphine] Allergy (Verified 10/28/19 19:46) nalbuphine [From Nubain] Allergy (Verified 10/28/19 19:46) Hives prochlorperazine [From Compazine] Allergy (Verified 10/28/19 19:46) Hives tramadol [Tramadol] Allergy (Verified 10/28/19 19:46) Hives lamotrigine [From Lamictal] Adverse Reaction (Verified 10/28/19 19:46) Hives ondansetron HCl [From Zofran] Adverse Reaction (Verified 10/28/19 19:46) VOMITING Home Medications: Prozac. Wellbutrin. [place]. Ambien. Phernergen. Benadryl. . Clonipine. Iron. Vitamin B6 Past Medical History - General Information source: Patient - Social History Smoking Status: Current Every Day Smoker Family History: Reviewed & Not Pertinent, Arthritis, DM, Hyperlipidemia, Hypertension Patient has suicidal ideation: No Patient has homicidal ideation: No - Past Medical History Cardiac Medical History: Reports: Hx Hypertension Neurological Medical History: Reports: Hx Migraine Renal/ Medical History: Denies: Hx Peritoneal Dialysis Musculoskeletal Medical History: Reports Hx Musculoskeletal Trauma Psychiatric Medical History: Reports: Hx Anxiety, Hx Attention Deficit Hyp eractivity Disorder, Hx Bipolar Disorder - Bipolar 1, Hx Depression, Hx Post Traumatic Stress Disorder Traumatic Medical History: Reports: Hx Fractures - nose Past Surgical History: Reports: Hx Abdominal Surgery - LAPROSCOPY, Hx Gynecologic Surgery - d&c, lap for endometriosis, Hx Nose Surgery - Reconstruction for fracture, Other - facial reconstruction - Immunizations Immunizations up to date: Yes Hx Diphtheria, Pertussis, Tetanus Vaccination: Yes - 2010 Review of Systems - Review of Systems Notes: Constitutional: Negative for fever. HENT: + Dental pain, + left ear pain Eyes: Negative for visual changes. Cardiovascular: Negative for chest pain. Respiratory: Negative for shortness of breath. Gastrointestinal: + Nausea, + vomiting Genitourinary: Negative for dysuria. Musculoskeletal: Negative for back pain. Skin: Negative for rash. Neurological: Negative for headaches, weakness or numbness. 10 point ROS negative except as marked above and in HPI. Physical Exam - Vital signs Vitals: Temp Pulse Resp BP Pulse Ox 98.2 F 114 H 16 128/82 H 99 11/28/19 15:54 11/28/19 15:54 11/28/19 15:54 11/28/19 15:54 11/28/19 15:54 - Notes Notes: PHYSICAL EXAMINATION: Physical Exam: General: Well-nourished well-developed in no acute distress HEENT: NC/AT, pupils equal round and reactive to light, MM moist,nares clear, oropharynx clear, airway patent, poor dentition with multiple caries and molars bilaterally Neck: supple, no adenopathy, no masses. Good range of motion Lungs: clear, no wheezing, no rales no rhonchi CVS: Regular rate and rhythm no murmur gallop or rub Abdomen: Gravid, soft, active, nontender, no masses, no hepatosplenomegaly Ext: No edema, clubbing or cyanosis. Neuro: Alert and responsive, moving all 4 extremities on command, cranial nerves intact, no focal findings Skin: Intact no open lesions, no rash PSYCH: Normal mood, normal affect. Course - Re-evaluation Re-evalutation: 11/28/19 18:26 Patient given IV fluids, antiemetics, diphenhydramine with improvement of symptoms. She was also given Rocephin 1 g IV for dental infection, she will receive a prescription for amoxicillin at discharge and encouraged to follow-up with a dentist as soon as possible. - Vital Signs Vital signs: Temp Pulse Resp BP Pulse Ox 98.3 F 104 H 16 120/79 100 11/28/19 18:18 11/28/19 18:18 11/28/19 18:18 11/28/19 18:18 11/28/19 18:18 - Laboratory Result Diagrams: 11/28/19 16:26 11/28/19 16:26 Laboratory results interpreted by me: 11/28/19 11/28/19 11/28/19 16:26 16:26 16:26 RBC 3.10 L Hgb 9.5 L Hct 27.6 L Sodium 135.5 L Carbon Dioxide 21 L Calcium 10.3 H Urine Ketones TRACE H Discharge - Discharge Clinical Impression: Nausea/vomiting in , Dental infection, Dental caries Condition: Good Disposition: HOME, SELF-CARE Instructions: Vomiting ([facility]) Additional Instructions: You are diagnosed with nausea and vomiting related to , please resume your usual medication regimen at home. Begin amoxicillin 500 mg 3 times a day for 10 days for your dental infection. Follow-up with a dentist as soon as possible. Please follow-up with your [facility] regarding further management of the nausea and vomiting and your high risks . If your symptoms are worsening or you have other concerns you may return to the emergency department. HOME CARE INSTRUCTIONS & INFORMATION: Thank you for choosing us for your medical needs. We hope you're satisfied with the care you received. After you leave, you must properly care for your problem and, at the same time, observe its progress. Any condition can change. Some illnesses can change rapidly over hours or days. If your condition worsens, return to the Emergency Department or see your physician promptly. ABOUT YOUR X-RAYS AND EKG'S: If you had an EKG or X-rays taken, they have been read by the Emergency Physician. The X-rays and EKG's will also be read by a Radiologist or Bin Operator within 24 hours. If discrepancies are noted, you will be notified by telephone. Please be certain the ED has a correct telephone number & address where you can be reached. Also, realize that some fractures or abnormalities do not show up on initial X-rays. If your symptoms continue, see your physician. ABOUT YOUR LABORATORY TEST: If you had laboratory tests, the results have been reviewed by the Emergency Physician. Some test results (for example cultures) may not be available for several days. You will be contacted if any test result shows you need additional treatment. Please be certain the ED has a correct telephone number and address where you can be reached. ABOUT YOUR MEDICATIONS: You will receive instructions on how to take your medicine on the prescription label you receive. Additional information may be provided by the Pharmacy. If you have questions afterwards, call the ED for clarification or further instructions. Some prescribed medications may cause drowsiness. Do not perform tasks such as driving a car or operating machinery without consulting your Pharmacist. If you feel you need a refill of pain medication, your condition will need re-evaluation. Please do not call for a refill of any medication. ABOUT YOUR SIGNATURE: Signature of this document acknowledges to followin. Understanding that you received emergency treatment and that you may be released before al medical problems are known or treated. Please be certain the ED has a correct phone number & address where you can be reached. 2. Acknowledgement that you will arrange for follow-up care as recommended. 3. Authorization for the Emergency Physician to provide information to your follow-up Physician in order to maximize your care. AT ANY TIME, IF YOUR SYMPTOMS CHANGE SIGNIFICANTLY OR WORSEN OR YOU DEVELOP NEW SYMPTOMS, RETURN TO THE EMERGENCY DEPARTMENT IMMEDIATELY FOR RE-EVALUATION. OUR GOAL IS TO PROVIDE EXCELLENT MEDICAL CARE! WE HOPE THAT WE HAVE MET YOUR EXPECTATIONS DURING YOUR EMERGENCY DEPARTMENT VISIT AND THAT YOU FEEL YOU HAVE RECEIVED EXCELLENT CARE! Prescriptions: Amoxicillin 1 tab PO TID #30 tab
[2019-11-28] MEDS ORDERED: ACETAMINOPHEN 325 MG TABLET PO ONE (18:30)
== END 2019-11-28 18:39 | disposition home or self-care (01) ==
LOC: ER 15:51
DX: O21.8 Other vomiting complicating pregnancy (principal); R19.7 Diarrhea, unspecified; O98.812 Other maternal infectious and parasitic diseases complicating pregnancy, second trimester; K02.9 Dental caries, unspecified; K04.7 Periapical abscess without sinus; O99.332 Smoking (tobacco) complicating pregnancy, second trimester; Z3A.26 26 weeks gestation of pregnancy
CPT/HCPCS: 99284; 96372; 96361; 96375; 96365; 36415; 85025; 80053; 81001; J3490 ×2; J1200; J2550; J0696; J7030

== ENCOUNTER 2019-12-22 02:48 | Emergency (ER) | payer MEDICAID ==
[2019-12-22] MEDS ORDERED: NORMAL SALINE 1000 ML 1,000 ML IV ONE (04:03)
[2019-12-22] MEDS ORDERED: PROMETHAZINE HCL INJ 25 MG/1 ML VIAL IV ONE (04:04)
[2019-12-22] MEDS ORDERED: DIPHENHYDRAMINE HCL 50 MG/ML VIAL IM ONE (04:14)
[2019-12-22] MEDS ORDERED: PROMETHAZINE HCL INJ 25 MG/1 ML VIAL IM ONE (04:14)
--- NOTE | 2019-12-22 04:42 | ER Document Report ---
Entered by DEMI JOHN SCRIBE 12/22/19 0404 Acting as scribe for:KAILA LINDQUIST IV, MD ED GI/ - General Chief Complaint: Nausea/Vomiting/Diarrhea Stated Complaint: VOMITING Time Seen by Provider: 12/22/19 03:46 Mode of Arrival: Ambulatory Information source: Patient Notes: This 34 year old female patient, , approximately x29 weeks gestation presents to the ED today with complaints of nausea, vomiting, and diarrhea since yesterday. Patient states that she has has been vomiting throughout the entire and was diagnosed with hyperemesis and gestational diabetes. She reports that she hasn't been able to hold anything down for x9 hours and is requesting IV fluids due to dehydration. She notes that 50 mg Benadryl IM and 50 mg Phenergan IM usually resolves her symptoms. She reports that the baby is moving normally. Denies abdominal pain/cramping, fever, or chills. She states that she has an appointment for an ultrasound in [place] on 11/28/2019. TRAVEL OUTSIDE OF THE [place] IN LAST 30 DAYS: No - Related Data Allergies/Adverse Reactions: ketorolac tromethamine [From Toradol] Allergy (Verified 10/28/19 19:46) meperidine HCl [From Demerol] Allergy (Verified 10/28/19 19:46) metoclopramide HCl [From Reglan] Allergy (Verified 10/28/19 19:46) morphine [Morphine] Allergy (Verified 10/28/19 19:46) nalbuphine [From Nubain] Allergy (Verified 10/28/19 19:46) Hives prochlorperazine [From Compazine] Allergy (Verified 10/28/19 19:46) Hives tramadol [Tramadol] Allergy (Verified 10/28/19 19:46) Hives lamotrigine [From Lamictal] Adverse Reaction (Verified 10/28/19 19:46) Hives ondansetron HCl [From Zofran] Adverse Reaction (Verified 10/28/19 19:46) VOMITING Home Medications: lithium TID. Seraquil Past Medical History - General Information source: Patient, [facility] Records - Social History Smoking Status: Smoker,Current Status Unk Cigarette use (# per day): No Chew tobacco use (# tins/day): No Smoking Education Provided: No Frequency of alcohol use: None Drug Abuse: None Family History: Reviewed & Not Pertinent, Arthritis, DM, Hyperlipidemia, Hypertension Patient has suicidal ideation: No Patient has homicidal ideation: No - Past Medical History Cardiac Medical History: Reports: Hx Hypertension Neurological Medical History: Reports: Hx Migraine Musculoskeletal Medical History: Reports Hx Musculoskeletal Trauma Psychiatric Medical History: Reports: Hx Anxiety, Hx Attention Deficit Hyperactivity Disorder, Hx Bipolar Disorder - Bipolar 1, Hx Depression, Hx Post Traumatic Stress Disorder Traumatic Medical History: Reports: Hx Fractures - nose Past Surgical History: Reports: Hx Abdominal Surgery - LAPROSCOPY, Hx Dilation and Curettage, Hx Gynecologic Surgery - lap for endometriosis, Hx Nose Surgery - Reconstruction for fracture, Other - facial reconstruction - Immunizations Immunizations up to date: Yes Hx Diphtheria, Pertussis, Tetanus Vaccination: Yes - 2010 Review of Systems - Review of Systems Constitutional: See HPI. denies: Chills, Fever EENT: No symptoms reported Cardiovascular: No symptoms reported Respiratory: No symptoms reported Gastrointestinal: See HPI, Diarrhea, Nausea, Vomiting. denies: Abdominal pain Genitourinary: No symptoms reported Female Genitourinary: See HPI, - x29 weeks Musculoskeletal: No symptoms reported Skin: No symptoms reported Hematologic/Lymphatic: No symptoms reported Neurological/Psychological: No symptoms reported -: Yes All other systems reviewed and negative Physical Exam - Vital signs Vitals: Temp Pulse Resp BP Pulse Ox 98.6 F 123 H 20 136/70 H 100 12/22/19 02:52 12/22/19 02:52 12/22/19 02:52 12/22/19 02:52 12/22/19 02:52 - General General appearance: Alert In distress: None - HEENT Head: Normocephalic, Atraumatic Eyes: Normal Pupils: PERRL - Respiratory Respiratory status: No respiratory distress Chest status: Nontender Breath sounds: Normal Chest palpation: Normal - Cardiovascular Rhythm: Regular Heart sounds: Normal auscultation Murmur: No Friction rub: No Gallop: None auscultated - Abdominal Inspection: Gravid female, Other - Uterine size appropriate with gestation Bowel sounds: Normal Tenderness: Nontender - Abdomen soft Organomegaly: No organomegaly - Back Back: Normal, Nontender - Extremities General upper extremity: Normal inspection General lower extremity: Normal inspection - Neurological Neuro grossly intact: Yes - Psychological Associated symptoms: Normal affect, Normal mood - Skin Skin Temperature: Warm Skin Moisture: Dry Skin Color: Normal Course - Re-evaluation Re-evalutation: 12/22/19 04:49 Diagnosis, plan of care discussed with patient. All questions were answered prior to discharge. Emergency signs and symptoms, reasons to return to the emergency department discussed with patient. - Vital Signs Vital signs: Temp Pulse Resp BP Pulse Ox 98.6 F 123 H 20 136/70 H 100 12/22/19 02:53 12/22/19 02:52 12/22/19 02:52 12/22/19 02:52 12/22/19 02:52 Discharge - Discharge Clinical Impression: Nausea & vomiting Qualifiers: Vomiting type: unspecified Vomiting Intractability: non-intractable Qualified Code(s): R11.2 - Nausea with vomiting, unspecified Diarrhea Qualifiers: Diarrhea type: unspecified type Qualified Code(s): R19.7 - Diarrhea, unspecified Condition: Good Disposition: HOME, SELF-CARE Instructions: Diarrhea, Nonspecific ([facility]), Vomiting ([facility]) Additional Instructions: Return to the Emergency Department without delay if any worse. Follow-up with your vocational adviser on 12/24/2019. HOME CARE INSTRUCTIONS & INFORMATION: Thank you for choosing us for your medical needs. We hope you're satisfied with the care you received. After you leave, you must properly care for your problem and, at the same time, observe its progress. Any condition can change. Some illnesses can change rapidly over hours or days. If your condition worsens, return to the Emergency Department or see your physician promptly. ABOUT YOUR X-RAYS AND EKG'S: If you had an EKG or X-rays taken, they have been read by the Emergency Physician. The X-rays and EKG's will also be read by a Radiologist or Technical Services Representative within 24 hours. If discrepancies are noted, you will be notified by telephone. Please be certain the ED has a correct telephone number & address where you can be reached. Also, realize that some fractures or abnormalities do not show up on initial X-rays. If your symptoms continue, see your physician. ABOUT YOUR LABORATORY TEST: If you had laboratory tests, the results have been reviewed by the Emergency Physician. Some test results (for example cultures) may not be available for several days. You will be contacted if any test result shows you need additional treatment. Please be certain the ED has a correct telephone number and address where you can be reached. ABOUT YOUR MEDICATIONS: You will receive instructions on how to take your medicine on the prescription label you receive. Additional information may be provided by the Pharmacy. If you have questions afterwards, call the ED for clarification or further instructions. Some prescribed medications may cause drowsiness. Do not perform tasks such as driving a car or operating machinery without consulting your Pharmacist. If you feel you need a refill of pain medication, your condition will need re-evaluation. Please do not call for a refill of any medication. ABOUT YOUR SIGNATURE: Signature of this document acknowledges to followin. Understanding that you received emergency treatment and that you may be released before al medical problems are known or treated. Please be certain the ED has a correct phone number & address where you can be reached. 2. Acknowledgement that you will arrange for follow-up care as recommended. 3. Authorization for the Emergency Physician to provide information to your follow-up Physician in order to maximize your care. AT ANY TIME, IF YOUR SYMPTOMS CHANGE SIGNIFICANTLY OR WORSEN OR YOU DEVELOP NEW SYMPTOMS, RETURN TO THE EMERGENCY DEPARTMENT IMMEDIATELY FOR RE-EVALUATION. OUR GOAL IS TO PROVIDE EXCELLENT MEDICAL CARE! WE HOPE THAT WE HAVE MET YOUR EXPECTATIONS DURING YOUR EMERGENCY DEPARTMENT VISIT AND THAT YOU FEEL YOU HAVE RECEIVED EXCELLENT CARE! I personally performed the services described in the documentation, reviewed and edited the documentation which was dictated to the scribe in my presence, and it accurately records my words and actions.
[2019-12-22] MEDS ORDERED: ACETAMINOPHEN 325 MG TABLET PO ONE (04:52)
[2019-12-22 05:27] VITALS: BP 109/68
== END 2019-12-22 05:28 | disposition home or self-care (01) ==
LOC: ER 02:48
DX: O21.9 Vomiting of pregnancy, unspecified (principal); O26.893 Other specified pregnancy related conditions, third trimester; R19.7 Diarrhea, unspecified; O24.419 Gestational diabetes mellitus in pregnancy, unspecified control; O99.333 Smoking (tobacco) complicating pregnancy, third trimester; O16.3 Unspecified maternal hypertension, third trimester; Z3A.26 26 weeks gestation of pregnancy; Z88.8 Allergy status to other drugs, medicaments and biological substances; Z79.899 Other long term (current) drug therapy
CPT/HCPCS: 99283; 96372; 96360; J3490; J1200; J2550; J7030

== ENCOUNTER 2020-01-11 18:04 | Emergency (ER) | payer MEDICAID ==
[2020-01-11] MEDS ORDERED: NORMAL SALINE 1000 ML 1,000 ML IV ONE (18:37)
[2020-01-11] MEDS ORDERED: PROMETHAZINE HCL INJ 50 MG/1 ML VIAL IM ONE ×2 (18:39→23:13)
--- NOTE | 2020-01-11 18:43 | ER Document Report ---
ED Medical Screen (RME) - General Chief Complaint: Nausea/Vomiting/Diarrhea Stated Complaint: NAUSEA Time Seen by Provider: 01/11/20 18:34 Notes: Patient is a 34-year-old female who presents the emergency department with nausea and vomiting. Patient has a history of nausea and vomiting the past. Patient is currently . Denies any abdominal pain. Patient states that she recently had some teeth pulled out and she ran out of her pain medication and nausea medication. Patient states that if she has her nausea medication she does not vomit as much. She is normally on promethazine. Exam: Noticeably . Missing teeth noted to left lower mouth. I have greeted and performed a rapid initial assessment of this patient. A comprehensive ED assessment and evaluation of the patient, analysis of test results and completion of medical decision making process will be conducted by an additional ED providers. TRAVEL OUTSIDE OF THE [place] IN LAST 30 DAYS: No - Related Data Allergies/Adverse Reactions: ketorolac tromethamine [From Toradol] Allergy (Verified 10/28/19 19:46) meperidine HCl [From Demerol] Allergy (Verified 10/28/19 19:46) metoclopramide HCl [From Reglan] Allergy (Verified 10/28/19 19:46) morphine [Morphine] Allergy (Verified 10/28/19 19:46) nalbuphine [From Nubain] Allergy (Verified 10/28/19 19:46) Hives prochlorperazine [From Compazine] Allergy (Verified 10/28/19 19:46) Hives tramadol [Tramadol] Allergy (Verified 10/28/19 19:46) Hives lamotrigine [From Lamictal] Adverse Reaction (Verified 10/28/19 19:46) Hives ondansetron HCl [From Zofran] Adverse Reaction (Verified 10/28/19 19:46) VOMITING Past Medical History - Social History Frequency of alcohol use: None Drug Abuse: None Family history: None - Past Medical History Cardiac Medical History: Reports: Hx Hypertension Neurological Medical History: Reports: Hx Migraine Renal/ Medical History: Denies: Hx Peritoneal Dialysis Musculoskeltal Medical History: Reports Hx Musculoskeletal Trauma Psychiatric Medical History: Reports: Hx Anxiety, Hx Attention Deficit Hyperactivity Disorder, Hx Bipolar Disorder - Bipolar 1, Hx Depression, Hx Post Traumatic Stress Disorder Traumatic Medical History: Reports: Hx Fractures - nose Past Surgical History: Reports: Hx Abdominal Surgery - LAPROSCOPY, Hx Dilation and Curettage, Hx Gynecologic Surgery - lap for endometriosis, Hx Nose Surgery - Reconstruction for fracture, Other - facial reconstruction - Immunizations Immunizations up to date: Yes Hx Diphtheria, Pertussis, Tetanus Vaccination: Yes - 2010 Physical Exam - Vital signs Vitals: Temp Pulse Resp BP Pulse Ox 98.6 F 99 18 111/67 99 01/11/20 18:08 01/11/20 18:08 01/11/20 18:08 01/11/20 18:08 01/11/20 18:08 Course - Vital Signs Vital signs: Temp Pulse Resp BP Pulse Ox 98.6 F 99 18 111/67 99 01/11/20 18:33 01/11/20 18:08 01/11/20 18:08 01/11/20 18:08 01/11/20 18:08
[2020-01-11 19:01] LABS: APPEARANCE,URINE SLIGHTLY-CLOUDY; BILIRUBIN,URINE NEGATIVE (NEGATIVE); COLOR,URINE YELLOW; GLUCOSE, URINE NEGATIVE (NEGATIVE); KETONES,URINE NEGATIVE (NEGATIVE); LEUKOCYTE ESTERASE,URINE MODERATE (NEGATIVE); NITRITE,URINE NEGATIVE (NEGATIVE); PROTEIN,URINE NEGATIVE (NEGATIVE); URINE SPECIFIC GRAVITY 1.005; UROBILINOGEN,URINE NEGATIVE mg/dL (<2.0)
[2020-01-11 19:29] LABS: ABSOLUTE EOSINOPHILS # (AUTO) 0.3 10^3/uL (0.0-0.6); ABSOLUTE LYMPHOCYTES (AUTO) 1.6 10^3/uL (0.5-4.7); ABSOLUTE MONOCYTES (AUTO) 0.8 10^3/uL (0.1-1.4); ABSOLUTE NEUT (AUTO) 4.9 10^3/uL (1.7-8.2); BASOPHILS % (AUTO) 0.3 % (0-2); EOSINOPHILS % (AUTO) 4.3 % (0-6); HEMATOCRIT 24.8 % (36.0-47.0); HEMOGLOBIN 8.6 g/dL (12.0-15.5); LYMPHOCYTES % (AUTO) 20.6 % (13-45); MEAN CORPUSCULAR HEMOGLOBIN 30.9 pg (27.0-33.4); MEAN CORPUSCULAR HGB CONC 34.5 g/dL (32.0-36.0); MEAN CORPUSCULAR VOLUME 89 fl (80-97); MONOCYTES % (AUTO) 10.1 % (3-13); PLATELET COUNT 205 10^3/uL (150-450); RED BLOOD COUNT 2.77 10^6/uL (3.72-5.28); RED CELL DISTRIBUTION WIDTH 13.2 % (11.5-14.0); SEGMENTED NEUTROPHILS % (AUTO) 64.7 % (42-78); TOTAL CELLS COUNTED % (AUTO) 100 %; WHITE BLOOD COUNT 7.6 10^3/uL (4.0-10.5)
[2020-01-11 19:53] LABS: ALBUMIN 3.3 g/dL (3.5-5.0); ALKALINE PHOSPHATASE 149 U/L (38-126); ANION GAP 5 (5-19); ASPARTATE AMINO TRANSFERASE 25 U/L (14-36); BILIRUBIN,TOTAL 0.2 mg/dL (0.2-1.3); BLOOD UREA NITROGEN 8 mg/dL (7-20); CALCIUM 9.5 mg/dL (8.4-10.2); CARBON DIOXIDE 21 mmol/L (22-30); CHLORIDE 107 mmol/L (98-107); GLUCOSE 79 mg/dL (75-110); POTASSIUM 3.2 mmol/L (3.6-5.0); TOTAL PROTEIN 6.5 g/dL (6.3-8.2)
[2020-01-11] MEDS ORDERED: DIPHENHYDRAMINE HCL 50 MG/ML VIAL IM ONE (23:13)
[2020-01-11] MEDS ORDERED: ACETAMINOPHEN WITH CODEINE #3 TABLET PO ONE (23:14)
[2020-01-11] MEDS ORDERED: PROMETHAZINE HCL INJ 25 MG/1 ML VIAL ONE (23:29)
--- NOTE | 2020-01-12 00:07 | ER Document Report ---
Entered by DEMI JOHN SCRIBE 01/11/20 8801 Acting as scribe for:KAILA LINDQUIST IV, MD ED GI/ - General Chief Complaint: Nausea/Vomiting/Diarrhea Stated Complaint: NAUSEA Time Seen by Provider: 01/11/20 18:34 Primary Care Provider: CARMEN MATSON MD [Primary Care Provider] - Follow up as needed Mode of Arrival: Wheelchair Information source: Patient Notes: This 34 year old female patient, , currently x32 weeks presents to the ED today with complaints of nausea/vomiting/diarrhea that started yesterday evening. Patient states that she wasn't able to take any of her medications because she couldn't keep anything down. She also reports dental pain, stating that she had x5 teeth pulled recently and that she ran out of pain and anti- nausea medication. She notes that a "cocktail" of 50 mg Benadryl IM and 50 mg Promethazine IM usually resolves her GI symptoms. TRAVEL OUTSIDE OF THE [place] IN LAST 30 DAYS: No - Related Data Allergies/Adverse Reactions: ketorolac tromethamine [From Toradol] Allergy (Verified 10/28/19 19:46) meperidine HCl [From Demerol] Allergy (Verified 10/28/19 19:46) metoclopramide HCl [From Reglan] Allergy (Verified 10/28/19 19:46) morphine [Morphine] Allergy (Verified 10/28/19 19:46) nalbuphine [From Nubain] Allergy (Verified 10/28/19 19:46) Hives prochlorperazine [From Compazine] Allergy (Verified 10/28/19 19:46) Hives tramadol [Tramadol] Allergy (Verified 10/28/19 19:46) Hives lamotrigine [From Lamictal] Adverse Reaction (Verified 10/28/19 19:46) Hives ondansetron HCl [From Zofran] Adverse Reaction (Verified 10/28/19 19:46) VOMITING Past Medical History - General Information source: Patient, [facility] Records - Social History Smoking Status: Smoker,Current Status Unk Cigarette use (# per day): No Chew tobacco use (# tins/day): No Smoking Education Provided: No Frequency of alcohol use: None Drug Abuse: None Family History: Reviewed & Not Pertinent, Arthritis, DM, Hyperlipidemia, Hypertension Patient has suicidal ideation: No Patient has homicidal ideation: No - Past Medical History Cardiac Medical History: Reports: Hx Hypertension Neurological Medical History: Reports: Hx Migraine Musculoskeletal Medical History: Reports Hx Musculoskeletal Trauma Psychiatric Medical History: Reports: Hx Anxiety, Hx Attention Deficit Hyperactivity Disorder, Hx Bipolar Disorder - Bipolar 1, Hx Depression, Hx Post Traumatic Stress Disorder Traumatic Medical History: Reports: Hx Fractures - nose Past Surgical History: Reports: Hx Abdominal Surgery - LAPROSCOPY, Hx Dilation and Curettage, Hx Gynecologic Surgery - lap for endometriosis, Hx Nose Surgery - Reconstruction for fracture, Other - facial reconstruction - Immunizations Immunizations up to date: Yes Hx Diphtheria, Pertussis, Tetanus Vaccination: Yes - 2010 Review of Systems - Review of Systems Constitutional: No symptoms reported EENT: See HPI, Dental problem Cardiovascular: No symptoms reported Respiratory: No symptoms reported Gastrointestinal: See HPI, Diarrhea, Nausea, Vomiting, Poor appetite, Poor fluid intake Genitourinary: No symptoms reported Female Genitourinary: No symptoms reported Musculoskeletal: No symptoms reported Skin: No symptoms reported Hematologic/Lymphatic: No symptoms reported Neurological/Psychological: No symptoms reported -: Yes All other systems reviewed and negative Physical Exam - Vital signs Vitals: Temp Pulse Resp BP Pulse Ox 98.6 F 99 18 111/67 99 01/11/20 18:08 01/11/20 18:08 01/11/20 18:08 01/11/20 18:08 01/11/20 18:08 Interpretation: Normal - General General appearance: Alert In distress: None - HEENT Head: Normocephalic, Atraumatic Eyes: Normal Pupils: PERRL - Respiratory Respiratory status: No respiratory distress Chest status: Nontender Breath sounds: Normal Chest palpation: Normal - Cardiovascular Rhythm: Regular Heart sounds: Normal auscultation Murmur: No Friction rub: No Gallop: None auscultated - Abdominal Inspection: Gravid female Bowel sounds: Normal Tenderness: Nontender - Abdomen soft Organomegaly: No organomegaly - Back Back: Normal, Nontender - Extremities General upper extremity: Normal inspection General lower extremity: Normal inspection - Neurological Neuro grossly intact: Yes Orientation: AAOx4 - Psychological Associated symptoms: Normal affect, Normal mood - Skin Skin Temperature: Warm Skin Moisture: Dry Skin Color: Normal Course - Re-evaluation Re-evalutation: 01/11/20 23:15 Results of ED MSE discussed with patient. All questions were answered prior to discharge. Emergency signs and symptoms, reasons to return to the emergency department discussed with patient. - Vital Signs Vital signs: Temp Pulse Resp BP Pulse Ox 98.6 F 99 18 111/67 99 01/11/20 18:33 01/11/20 18:08 01/11/20 18:08 01/11/20 18:08 01/11/20 18:08 - Laboratory Result Diagrams: 01/11/20 19:17 01/11/20 19:17 Laboratory results interpreted by me: 01/11/20 01/11/20 01/11/20 18:39 19:17 19:17 RBC 2.77 L Hgb 8.6 L Hct 24.8 L Sodium 133.2 L Potassium 3.2 L Carbon Dioxide 21 L Alkaline Phosphatase 149 H Albumin 3.3 L Ur Leukocyte Esterase MODERATE H Discharge - Discharge Clinical Impression: Nausea and vomiting Qualifiers: Vomiting type: unspecified Vomiting Intractability: non-intractable Qualified Code(s): R11.2 - Nausea with vomiting, unspecified Condition: Good Disposition: HOME, SELF-CARE Instructions: Vomiting ([facility]) Additional Instructions: Return to the Emergency Department without delay if any worse. HOME CARE INSTRUCTIONS & INFORMATION: Thank you for choosing us for your medical needs. We hope you're satisfied with the care you received. After you leave, you must properly care for your problem and, at the same time, observe its progress. Any condition can change. Some illnesses can change rapidly over hours or days. If your condition worsens, return to the Emergency Department or see your physician promptly. ABOUT YOUR X-RAYS AND EKG'S: If you had an EKG or X-rays taken, they have been read by the Emergency Physician. The X-rays and EKG's will also be read by a Radiologist or Section Housekeeper within 24 hours. If discrepancies are noted, you will be notified by telephone. Please be certain the ED has a correct telephone number & address where you can be reached. Also, realize that some fractures or abnormalities do not show up on initial X-rays. If your symptoms continue, see your physician. ABOUT YOUR LABORATORY TEST: If you had laboratory tests, the results have been reviewed by the Emergency Physician. Some test results (for example cultures) may not be available for several days. You will be contacted if any test result shows you need additional treatment. Please be certain the ED has a correct telephone number and address where you can be reached. ABOUT YOUR MEDICATIONS: You will receive instructions on how to take your medicine on the prescription label you receive. Additional information may be provided by the Pharmacy. If you have questions afterwards, call the ED for clarification or further instructions. Some prescribed medications may cause drowsiness. Do not perform tasks such as driving a car or operating machinery without consulting your Pharmacist. If you feel you need a refill of pain medication, your condition will need re-evaluation. Please do not call for a refill of any medication. ABOUT YOUR SIGNATURE: Signature of this document acknowledges to followin. Understanding that you received emergency treatment and that you may be released before al medical problems are known or treated. Please be certain the ED has a correct phone number & address where you can be reached. 2. Acknowledgement that you will arrange for follow-up care as recommended. 3. Authorization for the Emergency Physician to provide information to your follow-up Physician in order to maximize your care. AT ANY TIME, IF YOUR SYMPTOMS CHANGE SIGNIFICANTLY OR WORSEN OR YOU DEVELOP NEW SYMPTOMS, RETURN TO THE EMERGENCY DEPARTMENT IMMEDIATELY FOR RE-EVALUATION. OUR GOAL IS TO PROVIDE EXCELLENT MEDICAL CARE! WE HOPE THAT WE HAVE MET YOUR EXPECTATIONS DURING YOUR EMERGENCY DEPARTMENT VISIT AND THAT YOU FEEL YOU HAVE RECEIVED EXCELLENT CARE! Prescriptions: Acetaminophen with Codeine [Tylenol #3 Tablet] 1 each PO Q6HP PRN #12 tablet PRN Reason: pain Promethazine HCl [Phenergan 25 mg Tablet] 1 tab PO Q6H PRN #12 tablet PRN Reason: Referrals: CARMEN MATSON MD [Primary Care Provider] - Follow up as needed I personally performed the services described in the documentation, reviewed and edited the documentation which was dictated to the scribe in my presence, and it accurately records my words and actions.
[2020-01-12 00:10] VITALS: BP 118/70
== END 2020-01-11 23:48 | disposition home or self-care (01) ==
LOC: ER 18:04
DX: O21.9 Vomiting of pregnancy, unspecified (principal); R19.7 Diarrhea, unspecified; K08.9 Disorder of teeth and supporting structures, unspecified; O99.333 Smoking (tobacco) complicating pregnancy, third trimester; Z3A.32 32 weeks gestation of pregnancy; Z88.6 Allergy status to analgesic agent
CPT/HCPCS: 99284; 96372; 36415; 83690; 85025; 80053; 81001; J1200; J2550 ×2

== ENCOUNTER 2020-01-20 14:22 | Emergency (ER) | payer MEDICAID ==
[2020-01-20 14:30] VITALS: BP 123/60
[2020-01-20] MEDS ORDERED: DIPHENHYDRAMINE HCL 50 MG/ML VIAL IM ONE (14:33)
[2020-01-20] MEDS ORDERED: PROMETHAZINE HCL INJ 25 MG/1 ML VIAL IM ONE ×2 (14:33→15:37)
[2020-01-20] MEDS ORDERED: NORMAL SALINE 1000 ML 1,000 ML IV ONE (15:38)
--- NOTE | 2020-01-20 15:38 | ER Document Report ---
ED General - General Chief Complaint: Nausea/Vomiting/Diarrhea Stated Complaint: NAUSEA/VOMITING/MED REFILL Time Seen by Provider: 01/20/20 14:28 Primary Care Provider: CARMEN MATSON MD [Primary Care Provider] - Follow up as needed Mode of Arrival: Ambulatory Information source: Patient Notes: Patient presents 32 weeks complaining of nausea vomiting diarrhea. Patient states she has had vomiting and diarrhea throughout her entire . Patient states that her legs have been swelling for the past month with the left being more swollen than the right. Patient states her OB wanted her to come here to be evaluated for possible DVT. Patient also reports that her Klonopin bottle was misplaced and she needs a refill. She denies any vaginal bleeding or discharge. TRAVEL OUTSIDE OF THE [place] IN LAST 30 DAYS: No - HPI Onset: Yesterday Onset/Duration: Persistent Quality of pain: No pain Associated symptoms: Diarrhea, Nausea, Vomiting. denies: Nonproductive cough, Productive cough, Fever, Shortness of breath Exacerbated by: Denies Relieved by: Denies Similar symptoms previously: Yes Recently seen / treated by doctor: Yes - Related Data Allergies/Adverse Reactions: ketorolac tromethamine [From Toradol] Allergy (Verified 01/20/20 18:38) meperidine HCl [From Demerol] Allergy (Verified 01/20/20 18:38) metoclopramide HCl [From Reglan] Allergy (Verified 01/20/20 18:38) morphine [Morphine] Allergy (Verified 01/20/20 18:38) nalbuphine [From Nubain] Allergy (Verified 01/20/20 18:38) Hives prochlorperazine [From Compazine] Allergy (Verified 01/20/20 18:38) Hives tramadol [Tramadol] Allergy (Verified 01/20/20 18:38) Hives lamotrigine [From Lamictal] Adverse Reaction (Verified 01/20/20 18:38) Hives ondansetron HCl [From Zofran] Adverse Reaction (Verified 01/20/20 18:38) VOMITING Past Medical History - General Information source: Patient - Social History Smoking Status: Never Smoker Chew tobacco use (# tins/day): No Frequency of alcohol use: None Drug Abuse: None Lives with: Family Family History: Reviewed & Not Pertinent, Arthritis, DM, Hyperlipidemia, Hypertension Patient has homicidal ideation: No - Past Medical History Cardiac Medical History: Reports: Hx Hypertension Neurological Medical History: Reports: Hx Migraine Renal/ Medical History: Denies: Hx Peritoneal Dialysis Musculoskeletal Medical History: Reports Hx Musculoskeletal Trauma Psychiatric Medical History: Reports: Hx Anxiety, Hx Attention Deficit Hyperactivity Disorder, Hx Bipolar Disorder - Bipolar 1, Hx Depression, Hx Post Traumatic Stress Disorder Traumatic Medical History: Reports: Hx Fractures - nose Past Surgical History: Reports: Hx Abdominal Surgery - LAPROSCOPY, Hx Dilation and Curettage, Hx Gynecologic Surgery - lap for endometriosis, Hx Nose Surgery - Reconstruction for fracture, Other - facial reconstruction - Immunizations Immunizations up to date: Yes Hx Diphtheria, Pertussis, Tetanus Vaccination: Yes - 2010 Review of Systems - Review of Systems Constitutional: No symptoms reported. denies: Fever, Recent illness EENT: No symptoms reported Cardiovascular: No symptoms reported. denies: Chest pain Respiratory: No symptoms reported. denies: Cough Gastrointestinal: Diarrhea, Nausea, Vomiting. denies: Abdominal pain Female Genitourinary: No symptoms reported, . denies: Vaginal discharge, Vaginal bleeding Musculoskeletal: No symptoms reported. denies: Back pain Skin: No symptoms reported Hematologic/Lymphatic: No symptoms reported Neurological/Psychological: No symptoms reported. denies: Headaches Physical Exam - Vital signs Vitals: Temp Pulse Resp BP Pulse Ox 98.6 F 111 H 18 123/60 100 01/20/20 14:26 01/20/20 14:26 01/20/20 14:26 01/20/20 14:26 01/20/20 14:26 - General General appearance: Appears well, Alert In distress: None - HEENT Head: Normocephalic, Atraumatic Eyes: Normal Conjunctiva: Normal Nasal: Normal Mouth/Lips: Normal Mucous membranes: Normal - Respiratory Respiratory status: No respiratory distress Chest status: Nontender Breath sounds: Normal. No: Rales, Rhonchi, Stridor, Wheezing Chest palpation: Normal - Cardiovascular Rhythm: Tachycardia Heart sounds: S1 appreciated, S2 appreciated - Abdominal Inspection: Gravid female Tenderness: Nontender - Back Back: Normal, Nontender - Extremities General upper extremity: Normal inspection, Normal strength General lower extremity: Edema - Bilat LE L>R - Neurological Neuro grossly intact: Yes Cognition: Normal Ron Coma Scale Eye Opening: Spontaneous Ron Coma Scale Verbal: Oriented Ron Coma Scale Motor: Obeys Commands [place] Coma Scale Total: 15 - Psychological Associated symptoms: Normal affect, Normal mood - Skin Skin Temperature: Warm Skin Moisture: Dry Skin Color: Normal Course - Re-evaluation Re-evalutation: 01/20/20 16:59 Preliminary Doppler report negative for any DVT at this time. Patient repeatedly asking for her Klonopin. Patient reports that she misplaced her refill bottle and is needing additional Klonopin for her anxiety. Patient advised that this provider will not be refilling this medication for her that her primary doctor, OB or mental health provider would have to address any needed refills. 01/20/20 17:25 No DVT noted on Doppler study. Patient without any active vomiting here. Will discharge patient in transfer upstairs to L&D for labor check. - Vital Signs Vital signs: Temp Pulse Resp BP Pulse Ox 98.6 F 111 H 18 123/60 100 01/20/20 14:29 01/20/20 14:26 01/20/20 14:26 01/20/20 14:26 01/20/20 14:26 - Laboratory Result Diagrams: 01/20/20 16:46 01/20/20 16:09 Laboratory results interpreted by me: 01/20/20 01/20/20 16:09 16:46 WBC 10.8 H RBC 2.95 L Hgb 9.1 L Hct 26.5 L Sodium 135.0 L Potassium 3.5 L Chloride 108 H Carbon Dioxide 19 L Alkaline Phosphatase 162 H Total Protein 6.1 L Albumin 3.1 L Labs- All tests 24 hr 01/20/20 01/20/20 01/20/20 16:09 16:09 16:46 WBC Cancelled 10.8 H RBC Cancelled 2.95 L Hgb Cancelled 9.1 L Hct Cancelled 26.5 L MCV Cancelled 90 MCH Cancelled 30.8 MCHC Cancelled 34.3 RDW Cancelled 13.6 Plt Count Cancelled 240 Lymph % (Auto) Cancelled Not Reportable [place] % (Auto) Cancelled Not Reportable Eos % (Auto) Cancelled Not Reportable Baso % (Auto) Cancelled Not Reportable Absolute Neuts (auto) Cancelled Not Reportable Absolute Lymphs (auto) Cancelled Not Reportable Absolute Monos (auto) Cancelled Not Reportable Absolute Eos (auto) Cancelled Not Reportable Absolute Basos (auto) Cancelled Not Reportable Total Counted 100 Seg Neutrophils % Cancelled Not Reportable Seg Neuts % (Manual) 76 Lymphocytes % (Manual) 15 Monocytes % (Manual) 7 Eosinophils % (Manual) 2 Basophils % (Manual) 0 Abs Neuts (Manual) 8.2 Abs Lymphs (Manual) 1.6 Abs Monocytes (Manual) 0.8 Absolute Eos (Manual) 0.2 Abs Basophils (Manual) 0.0 Platelet Estimate Cancelled Platelet Comment ADEQUATE Poikilocytosis SLIGHT Tear Drop Cells SLIGHT Sodium 135.0 L Potassium 3.5 L Chloride 108 H Carbon Dioxide 19 L Anion Gap 8 BUN 8 Creatinine 0.74 Est GFR ( Amer) > 60 Est GFR (MDRD) Non-Af > 60 Glucose 97 Calcium 10.2 Total Bilirubin 0.2 Direct Bilirubin 0.0 Neonat Total Bilirubin Not Reportable Neonat Direct Bilirubin Not Reportable Neonat Indirect Bili Not Reportable AST 24 ALT 27 Alkaline Phosphatase 162 H Total Protein 6.1 L Albumin 3.1 L Slides for Path Review Cancelled - Diagnostic Test Radiology reviewed: Reports reviewed Discharge - Discharge Clinical Impression: Swelling of lower extremity, Nausea and vomiting during Condition: Stable Disposition: HOME, SELF-CARE Instructions: Antinausea Medication ([facility]), Vomiting ([facility]) Additional Instructions: Return immediately for any new or worsening symptoms Followup directly with labor and delivery for evaluation Referrals: CARMEN MATSON MD [Primary Care Provider] - Follow up as needed
[2020-01-20 16:32] LABS: ALBUMIN 3.1 g/dL (3.5-5.0); ALKALINE PHOSPHATASE 162 U/L (38-126); ANION GAP 8 (5-19); ASPARTATE AMINO TRANSFERASE 24 U/L (14-36); BILIRUBIN,TOTAL 0.2 mg/dL (0.2-1.3); BLOOD UREA NITROGEN 8 mg/dL (7-20); CALCIUM 10.2 mg/dL (8.4-10.2); CARBON DIOXIDE 19 mmol/L (22-30); CHLORIDE 108 mmol/L (98-107); GLUCOSE 97 mg/dL (75-110); POTASSIUM 3.5 mmol/L (3.6-5.0); TOTAL PROTEIN 6.1 g/dL (6.3-8.2)
[2020-01-20] MEDS ORDERED: CLONAZEPAM 1 MG TABLET PO ONE (16:45)
[2020-01-20 17:02] LABS: HEMATOCRIT 26.5 % (36.0-47.0); HEMOGLOBIN 9.1 g/dL (12.0-15.5); MEAN CORPUSCULAR HEMOGLOBIN 30.8 pg (27.0-33.4); MEAN CORPUSCULAR HGB CONC 34.3 g/dL (32.0-36.0); MEAN CORPUSCULAR VOLUME 90 fl (80-97); PLATELET COUNT 240 10^3/uL (150-450); RED BLOOD COUNT 2.95 10^6/uL (3.72-5.28); RED CELL DISTRIBUTION WIDTH 13.6 % (11.5-14.0); WHITE BLOOD COUNT 10.8 10^3/uL (4.0-10.5)
--- NOTE | 2020-01-20 17:03 | RADIOLOGY REPORT (SQ) ---
EXAM DESCRIPTION: VENOUS UNILATERAL LOWER IMAGES COMPLETED DATE/TIME: 01/20/2020 4:54 pm REASON FOR STUDY: LLE pain/swelling COMPARISON: None. TECHNIQUE: Dynamic and static tran scale and color images acquired of the left leg venous system. Se lected spectral images acquired with additional compression and augmentation maneuvers. The contralat eral common femoral vein and saphenofemoral junction were also imaged. Images stored on PACS. LIMITATIONS: None. FINDINGS: COMMON FEMORAL: Normal phasicity, compression and augmentation. No visualized echogenic ma terial on tran scale. No defects on color images. FEMORAL: Normal compression and augmentation. No visualized echogenic material on tran scale. No defe cts on color images. POPLITEAL: Normal compression, augmentation. No visualized echogenic material on tran scale. No defec ts on color images. CALF VESSELS: Normal compression, augmentation. No visualized echogenic material on tran scale. No de fects on color images. GSV and SSV: Normal compression, augmentation. No visualized echogenic material on tran scale. No def ects on color images. ANY DEEP VENOUS INSUFFICIENCY: Not evaluated. ANY EVIDENCE OF POPLITEAL CYST: No. OTHER: No other significant finding. CONTRALATERAL COMMON FEMORAL VEIN AND SAPHENOFEMORAL JUNCTION: Normal phasicity, compression and augmentation. No visualized echogenic material on tran scale. No de fects on color images. IMPRESSION: NO EVIDENCE OF DVT OR SVT IN THE LEFT LEG. TECHNICAL DOCUMENTATION: JOB ID: [id number] [email or web address]- All Rights Reserved Reading location - IP/workstation name: [email or web address]
[2020-01-20 17:19] LABS: ABSOLUTE LYMPHOCYTES# (MANUAL) 1.6 10^3/uL (0.5-4.7); ABSOLUTE MONOCYTES # (MANUAL) 0.8 10^3/uL (0.1-1.4); BASOPHILS % (MANUAL) 0 % (0-2); EOSINOPHILS % (MANUAL) 2 % (0-6); LYMPHOCYTES % (MANUAL) 15 % (13-45); MONOCYTES % (MANUAL) 7 % (3-13); SEGMENTED NEUTROPHILS % (MAN) 76 % (42-78); TOTAL CELLS COUNTED 100
[2020-01-20 17:20] LABS: PLATELET COMMENT ADEQUATE; POIKILOCYTOSIS SLIGHT; TEAR DROP CELLS SLIGHT
== END 2020-01-20 17:53 | disposition home or self-care (01) ==
LOC: ER 14:22
DX: O21.2 Late vomiting of pregnancy (principal); O99.89 Other specified diseases and conditions complicating pregnancy, childbirth and the puerperium; M79.89 Other specified soft tissue disorders; O26.893 Other specified pregnancy related conditions, third trimester; R19.7 Diarrhea, unspecified; R00.0 Tachycardia, unspecified; O16.3 Unspecified maternal hypertension, third trimester; Z3A.32 32 weeks gestation of pregnancy; Z88.8 Allergy status to other drugs, medicaments and biological substances; Z88.6 Allergy status to analgesic agent; Z88.5 Allergy status to narcotic agent
CPT/HCPCS: 99284; 96372; 96360; 36415; 85025; 80053; 93971; J3490; J1200; J2550; J7030

== ENCOUNTER 2020-01-20 17:50 | Outpatient (CLI) | payer MEDICAID ==
[2020-01-20] MEDS ORDERED: RINGERS SOLUTION,LACTATED 1,000 ML IV PRN (18:09)
[2020-01-20] MEDS ORDERED: RINGERS SOLUTION,LACTATED 1,000 ML IV ONE (18:30)
[2020-01-20] MEDS ORDERED: HYDROXYZINE PAMOATE 50 MG CAPSULE ONE (18:51)
[2020-01-20] MEDS ORDERED: ACETAMINOPHEN 325 MG TABLET ONE (18:51)
[2020-01-20 18:52] LABS: BACTERIA (WET MOUNT) 3+ BACTERIA SEEN; EPITHELIALS (WET MOUNT) 3+ EPITHELIALS SEEN; RBCS (WET MOUNT) RARE RBCS SEEN; T.VAGINALIS (WET MOUNT) NO TRICHOMONAS SEEN; WBCS (WET MOUNT) 1+ WBCS SEEN; YEAST (WET MOUNT) NO YEAST SEEN
[2020-01-20] MEDS ORDERED: DEXTROSE 5%-WATER 250 ML IV PRN (18:52)
[2020-01-20 18:56] LABS: APPEARANCE,URINE SLIGHTLY-CLOUDY; BILIRUBIN,URINE NEGATIVE (NEGATIVE); COLOR,URINE YELLOW; GLUCOSE, URINE NEGATIVE (NEGATIVE); KETONES,URINE NEGATIVE (NEGATIVE); LEUKOCYTE ESTERASE,URINE MODERATE (NEGATIVE); NITRITE,URINE NEGATIVE (NEGATIVE); PROTEIN,URINE NEGATIVE (NEGATIVE); URINE SPECIFIC GRAVITY 1.005; UROBILINOGEN,URINE NEGATIVE mg/dL (<2.0)
[2020-01-20] MEDS ORDERED: HYDROXYZINE PAMOATE 25 MG CAPSULE PO ONE (19:00)
[2020-01-20 19:12] LABS: URINE AMPHETAMINES SCREEN NEGATIVE; URINE BARBITURATES SCREEN NEGATIVE; URINE BENZODIAZEPINES SCREEN NEGATIVE; URINE COCAINE SCREEN NEGATIVE; URINE MARIJUANA (THC) SCREEN NEGATIVE; URINE METHADONE SCREEN NEGATIVE; URINE PHENCYCLIDINE SCREEN NEGATIVE
[2020-01-20 19:16] LABS: UR PRO/CREAT RATIO RESULT 0.5 mg/mg (0.0-0.2); URINE CREATININE 34.4 mg/dL (16-327); URINE PROTEIN 16.4 mg/dL (<12)
[2020-01-20] MEDS ORDERED: ACETAMINOPHEN 325 MG TABLET PO ONE (20:00)
== END 2020-01-20 20:30 | disposition home or self-care (01) ==
LOC: LC 17:50
PROVIDERS: ATTEND Obstetrics & Gynecology
DX: O10.913 Unspecified pre-existing hypertension complicating pregnancy, third trimester (principal); O09.33 Supervision of pregnancy with insufficient antenatal care, third trimester; O99.333 Smoking (tobacco) complicating pregnancy, third trimester; F17.210 Nicotine dependence, cigarettes, uncomplicated; Z3A.32 32 weeks gestation of pregnancy; Z88.6 Allergy status to analgesic agent; Z88.8 Allergy status to other drugs, medicaments and biological substances
CPT/HCPCS: 59025; 36415; 87210; 83615; 84156; 84550; 82570; 81001; 80307; J3490 ×2

== ENCOUNTER 2020-01-22 17:52 | Emergency (ER) | payer MEDICAID ==
[2020-01-22] MEDS ORDERED: PROMETHAZINE HCL INJ 25 MG/1 ML VIAL IM ONE ×2 (19:09→21:11)
--- NOTE | 2020-01-22 19:15 | ER Document Report ---
ED General - General Chief Complaint: Nausea/Vomiting Stated Complaint: WITHDRAWL FROM [place] Time Seen by Provider: 01/22/20 18:45 Primary Care Provider: [facility] [Provider Group] - Follow up in 3-5 days Notes: Patient is a 34-year-old female, G8, P7 who presents the emergency department with nausea, vomiting, and possible benzodiazepine withdrawal. Patient states that she normally takes clonazepam, but she has been out of her clonazepam for the past 4 days. Patient states that she does not know what happened to her medication. States that she is taking Vistaril, but is not having any relief of her symptoms. Patient states, "I am having [place] contractions because of the withdrawals." Denies active labor. She is 33 weeks . States that the Provider that normally normally gives her clonazepam called in a prescription to [facility] pharmacy, but the patient did not have the medication dispensed because she is not ready for refills. Patient normally has this medication filled at [facility]. TRAVEL OUTSIDE OF THE [place] IN LAST 30 DAYS: No - Related Data Allergies/Adverse Reactions: ketorolac tromethamine [From Toradol] Allergy (Verified 01/22/20 18:17) meperidine HCl [From Demerol] Allergy (Verified 01/22/20 18:17) metoclopramide HCl [From Reglan] Allergy (Verified 01/22/20 18:17) morphine [Morphine] Allergy (Verified 01/22/20 18:17) nalbuphine [From Nubain] Allergy (Verified 01/22/20 18:17) Hives prochlorperazine [From Compazine] Allergy (Verified 01/22/20 18:17) Hives tramadol [Tramadol] Allergy (Verified 01/22/20 18:17) Hives lamotrigine [From Lamictal] Adverse Reaction (Verified 01/22/20 18:17) Hives ondansetron HCl [From Zofran] Adverse Reaction (Verified 01/22/20 18:17) VOMITING Home Medications: see pt note Past Medical History - Social History Smoking Status: Current Every Day Smoker Chew tobacco use (# tins/day): No Frequency of alcohol use: None Drug Abuse: None Family History: Reviewed & Not Pertinent, Arthritis, DM, Hyperlipidemia, Hypertension Patient has homicidal ideation: No - Past Medical History Cardiac Medical History: Reports: Hx Hypertension Neurological Medical History: Reports: Hx Migraine Renal/ Medical History: Denies: Hx Peritoneal Dialysis Musculoskeletal Medical History: Reports Hx Musculoskeletal Trauma Psychiatric Medical History: Reports: Hx Anxiety, Hx Attention Deficit Hyperac tivity Disorder, Hx Bipolar Disorder - Bipolar 1, Hx Depression, Hx Post Traumatic Stress Disorder Traumatic Medical History: Reports: Hx Fractures - nose Past Surgical History: Reports: Hx Abdominal Surgery - LAPROSCOPY, Hx Dilation and Curettage, Hx Gynecologic Surgery - lap for endometriosis, Hx Nose Surgery - Reconstruction for fracture, Other - facial reconstruction - Immunizations Immunizations up to date: Yes Hx Diphtheria, Pertussis, Tetanus Vaccination: Yes - 2010 Review of Systems - Review of Systems Notes: REVIEW OF SYSTEMS: CONSTITUTIONAL : Denies recent illness. Denies recent unintentional weight loss. Denies fever, chills, or sweats. EENT: Denies eye, ear, throat, or mouth pain, discharge, or symptoms. Denies nasal or sinus congestion. CARDIOVASCULAR: Denies chest pain. RESPIRATORY: Denies shortness of breath, cough, congestion, difficulty breathing, or wheezing. GASTROINTESTINAL: See HPI. GENITOURINARY: Denies difficulty urinating, burning, blood in urine, urgency or frequency. FEMALE GENITOURINARY: See HPI. MUSCULOSKELETAL: Denies neck and back pain. Denies joint pain or swelling. SKIN: Denies rash, itchiness, or lesions HEMATOLOGIC : Denies easy bruising or bleeding. LYMPHATIC: Denies swollen, painful, enlarged glands. NEUROLOGICAL: Denies no numbness or tingling denies weakness. Denies headache. Denies altered mental status. Denies alteration in speech. PSYCHIATRIC: See HPI. All other systems reviewed and negative. Physical Exam - Vital signs Vitals: Temp 98.7 F 01/22/20 17:54 - Notes Notes: PHYSICAL EXAMINATION: GENERAL: Appears well, healthy, well-nourished, no acute distress. HEAD: Normocephalic, atraumatic. EYES: PERRL, conjunctiva normal, all extraocular movements intact, sclera nonicteric ENT: Moist mucous membranes. NECK: Supple, no noticeable swelling, redness, rash. Normal range of motion. LUNGS: Equal breath sounds bilaterally and clear to auscultation. No wheezes rales or rhonchi. CARDIOVASCULAR: S1-S2, regular rate, regular rhythm. Radial pulses 2+, normal. ABDOMEN: Normoactive bowel sounds. Soft, noticeably . EXTREMITIES: Normal strength and range of motion, no pitting or edema. No cyanosis. NEUROLOGICAL: Moves all extremities upon command. Strength 5/5 in all extremities. PSYCH: Normal mood, normal affect. SKIN: Warm, dry. No rash, lesions, ulcerations noted. Normal skin turgor. Course - Re-evaluation Re-evalutation: 01/22/20 19:16 I called [facility] pharmacy and they state that the patient is not normally a patient over there. According to them, [facility] will not fill the medication because it is too soon. 01/22/20 21:04 Patient states that she feels better. States that her symptoms subsided. States that she still feels nauseous, but not quite as nauseous that she did before. She is tolerating oral fluids. She is not vomiting. Hematology shows a slight leukocytosis of 10,800. Hemoglobin is 8.2, which is her normal. Chemistries show that she is slightly dehydrated. She is tolerating oral fluids at this time. I encouraged her to increase her oral fluid intake. Patient is n ontoxic in appearance. She also has a large amount of leukocyte Estrace in her urine. She then indicated that she was having some burning when she urinated. Her urine will be sent for culture. I will start her on Keflex. She follows up with OB on Tuesday. I told her to continue to follow-up. I also told her that she needs to find her clonazepam. She is in agreement with this plan. Follow-u p precautions were given. Verbal discharge instructions were given to the patient. They verbalized understanding. They are stable for discharge. - Vital Signs Vital signs: Temp Pulse Resp BP Pulse Ox 98.2 F 116 H 18 107/55 L 100 01/22/20 21:45 01/22/20 21:24 01/22/20 21:24 01/22/20 21:24 01/22/20 21:24 - Laboratory Result Diagrams: 01/22/20 19:33 01/22/20 19:33 Laboratory results interpreted by me: 01/22/20 01/22/20 01/22/20 19:33 19:33 19:33 WBC 10.8 H RBC 2.64 L Hgb 8.2 L Hct 23.6 L Sodium 134.7 L Potassium 3.4 L Chloride 108 H Carbon Dioxide 21 L Alkaline Phosphatase 186 H Urine Protein 30 H Urine Ketones TRACE H Ur Leukocyte Esterase LARGE H Discharge - Discharge Clinical Impression: Nausea and vomiting during , Benzodiazepine withdrawal without complication, [place] contractions Urinary tract infection Qualifiers: Urinary tract infection type: acute cystitis Hematuria presence: without hematuria Qualified Code(s): N30.00 - Acute cystitis without hematuria Condition: Stable Disposition: HOME, SELF-CARE Additional Instructions: Your urine shows findings consistent with a urinary tract infection. Please t piter all the antibiotics as directed even if your symptoms have improved. Please follow-up with your primary care physician as needed. Return to emergency room if you develop fever >101F, persistent vomiting, become lethargic, have severe pain in your sides, or any other symptoms that are concerning to you. Follow-up with OB in regards to this visit. Please make sure that you find your medication. This is the only way that you are able to your clonazepam. Call your doctor who is managing this medication for further management. Prescriptions: Cephalexin [Keflex] 500 mg PO BID #14 capsule Referrals: [facility] [Provider Group] - Follow up in 3-5 days
[2020-01-22] MEDS ORDERED: ACETAMINOPHEN 325 MG TABLET PO ONE (19:37)
[2020-01-22] MEDS ORDERED: CLONAZEPAM 1 MG TABLET PO ONE (19:38)
[2020-01-22 20:00] LABS: ABSOLUTE EOSINOPHILS # (AUTO) 0.2 10^3/uL (0.0-0.6); ABSOLUTE LYMPHOCYTES (AUTO) 1.5 10^3/uL (0.5-4.7); ABSOLUTE MONOCYTES (AUTO) 1.3 10^3/uL (0.1-1.4); ABSOLUTE NEUT (AUTO) 7.7 10^3/uL (1.7-8.2); BASOPHILS % (AUTO) 0.2 % (0-2); HEMATOCRIT 23.6 % (36.0-47.0); HEMOGLOBIN 8.2 g/dL (12.0-15.5); LYMPHOCYTES % (AUTO) 14.3 % (13-45); MEAN CORPUSCULAR HEMOGLOBIN 31.2 pg (27.0-33.4); MEAN CORPUSCULAR HGB CONC 34.9 g/dL (32.0-36.0); MEAN CORPUSCULAR VOLUME 89 fl (80-97); MONOCYTES % (AUTO) 11.7 % (3-13); PLATELET COUNT 246 10^3/uL (150-450); RED BLOOD COUNT 2.64 10^6/uL (3.72-5.28); SEGMENTED NEUTROPHILS % (AUTO) 71.8 % (42-78); TOTAL CELLS COUNTED % (AUTO) 100 %; WHITE BLOOD COUNT 10.8 10^3/uL (4.0-10.5)
[2020-01-22 20:20] LABS: ALBUMIN 3.5 g/dL (3.5-5.0); ALKALINE PHOSPHATASE 186 U/L (38-126); ANION GAP 6 (5-19); ASPARTATE AMINO TRANSFERASE 34 U/L (14-36); BILIRUBIN,TOTAL 0.4 mg/dL (0.2-1.3); BLOOD UREA NITROGEN 7 mg/dL (7-20); CALCIUM 9.5 mg/dL (8.4-10.2); CARBON DIOXIDE 21 mmol/L (22-30); CHLORIDE 108 mmol/L (98-107); GLUCOSE 85 mg/dL (75-110); POTASSIUM 3.4 mmol/L (3.6-5.0); TOTAL PROTEIN 6.5 g/dL (6.3-8.2)
[2020-01-22] MEDS ORDERED: HYDROXYZINE PAMOATE 50 MG CAPSULE PO ONE (20:24)
[2020-01-22 20:36] LABS: APPEARANCE,URINE CLOUDY; BILIRUBIN,URINE NEGATIVE (NEGATIVE); COLOR,URINE YELLOW; GLUCOSE, URINE NEGATIVE (NEGATIVE); KETONES,URINE TRACE mg/dL (NEGATIVE); LEUKOCYTE ESTERASE,URINE LARGE (NEGATIVE); NITRITE,URINE NEGATIVE (NEGATIVE); PROTEIN,URINE 30 mg/dL (NEGATIVE); URINE SPECIFIC GRAVITY 1.014; UROBILINOGEN,URINE NEGATIVE mg/dL (<2.0)
[2020-01-22] MEDS ORDERED: PROMETHAZINE HCL 25 MG TABLET PO ONE (21:09)
[2020-01-22 21:40] VITALS: BP 107/55
== END 2020-01-22 21:46 | disposition home or self-care (01) ==
LOC: ER 17:52
DX: O99.343 Other mental disorders complicating pregnancy, third trimester (principal); F13.239 Sedative, hypnotic or anxiolytic dependence with withdrawal, unspecified; F41.9 Anxiety disorder, unspecified; O23.13 Infections of bladder in pregnancy, third trimester; O21.2 Late vomiting of pregnancy; O99.333 Smoking (tobacco) complicating pregnancy, third trimester; F17.200 Nicotine dependence, unspecified, uncomplicated; O16.3 Unspecified maternal hypertension, third trimester; O62.8 Other abnormalities of forces of labor; Z3A.33 33 weeks gestation of pregnancy; Z79.899 Other long term (current) drug therapy; Z88.8 Allergy status to other drugs, medicaments and biological substances; Z88.6 Allergy status to analgesic agent; Z88.5 Allergy status to narcotic agent
CPT/HCPCS: 99284; 96372; 36415; 87086; 85025; 80053; 81001; J3490 ×3; J2550

== ENCOUNTER 2020-01-23 18:11 | Outpatient (CLI) | payer MEDICAID ==
[2020-01-23] MEDS ORDERED: RINGERS SOLUTION,LACTATED 1,000 ML IV PRN (19:47)
[2020-01-23] MEDS ORDERED: RINGERS SOLUTION,LACTATED 1,000 ML IV ONE (19:47)
--- NOTE | 2020-01-23 20:33 | RADIOLOGY REPORT (SQ) ---
EXAM DESCRIPTION: OB ultrasound. CLINICAL HISTORY: 34 years Female; cervical length, fluid, pres TECHNIQUE: Transabdominal obstetrical ultrasound was performed. COMPARISON: OB ultrasound October 30, 2019 FINDINGS: Number of fetuses: Single position: Cephalic Amniotic fluid: 17.1 cm. Largest pocket 6.36 cm Cervix: Closed. And measures 3.9 cm in length. Placenta: Posterior. Grade 3. HR: 143 bpm IMPRESSION: 1. Single living intrauterine in cephalic presentation. 2. The cervix is closed and appears normal. 3. Normal TONYA
[2020-01-23 20:35] LABS: CHLAM PCR NOT DETECTED (NOT DETECT)
[2020-01-23] MEDS ORDERED: ACETAMINOPHEN 325 MG TABLET ONE (20:41)
[2020-01-23] MEDS ORDERED: ACETAMINOPHEN 325 MG TABLET PO ONE (20:53)
[2020-01-23 21:17] LABS: APPEARANCE,URINE SLIGHTLY-CLOUDY; BILIRUBIN,URINE NEGATIVE (NEGATIVE); COLOR,URINE YELLOW; GLUCOSE, URINE NEGATIVE (NEGATIVE); KETONES,URINE NEGATIVE (NEGATIVE); LEUKOCYTE ESTERASE,URINE NEGATIVE (NEGATIVE); NITRITE,URINE NEGATIVE (NEGATIVE); PROTEIN,URINE NEGATIVE (NEGATIVE); URINE SPECIFIC GRAVITY 1.005; UROBILINOGEN,URINE NEGATIVE mg/dL (<2.0)
[2020-01-23 21:32] LABS: URINE BARBITURATES SCREEN NEGATIVE; URINE BENZODIAZEPINES SCREEN NEGATIVE; URINE COCAINE SCREEN NEGATIVE; URINE MARIJUANA (THC) SCREEN NEGATIVE; URINE METHADONE SCREEN NEGATIVE; URINE PHENCYCLIDINE SCREEN NEGATIVE
[2020-01-23 21:35] LABS: URINE AMPHETAMINES SCREEN UNCONFIRMED POSITIVE
--- NOTE | 2020-01-23 22:17 | RADIOLOGY REPORT (SQ) ---
EXAM DESCRIPTION: Biophysical profile. CLINICAL HISTORY: 34 years Female; 33.1, non reactive NST TECHNIQUE: Biophysical profile was performed, with limited anatomic survey. COMPARISON: None FINDINGS: Movement: 2 Tone: 2 Breathin Fluid: 2 Biophysical profile score 8/8 Amniotic fluid index 23.8 cm. Largest pocket is 6.90 cm position: Cephalic Cervix: Not seen Heart rate: 143 bpm Placenta: Posterior. Grade 3. IMPRESSION: Biophysical profile score 8/8
== END 2020-01-23 22:31 | disposition home or self-care (01) ==
LOC: ER 18:11 → LC 22:31
PROVIDERS: ATTEND Student in an Organized Health Care Education/Training Program
DX: Z34.93 Encounter for supervision of normal pregnancy, unspecified, third trimester (principal); Z3A.33 33 weeks gestation of pregnancy
CPT/HCPCS: 59025; 36415; 81001; 80307 ×2; 87491; 87591; 80361; 76815; 76819; G0480; J3490

== ENCOUNTER 2020-01-24 21:26 | Outpatient (CLI) | payer MEDICAID ==
[2020-01-24] MEDS ORDERED: DIAZEPAM 5 MG TABLET ONE (23:02)
[2020-01-24 23:04] LABS: APPEARANCE,URINE SLIGHTLY-CLOUDY; BILIRUBIN,URINE NEGATIVE (NEGATIVE); COLOR,URINE YELLOW; GLUCOSE, URINE NEGATIVE (NEGATIVE); KETONES,URINE TRACE mg/dL (NEGATIVE); LEUKOCYTE ESTERASE,URINE NEGATIVE (NEGATIVE); NITRITE,URINE NEGATIVE (NEGATIVE); PROTEIN,URINE NEGATIVE (NEGATIVE); URINE SPECIFIC GRAVITY 1.018; UROBILINOGEN,URINE NEGATIVE mg/dL (<2.0)
[2020-01-24] MEDS ORDERED: DIAZEPAM 2 MG TABLET PO ONE (23:05)
[2020-01-24 23:18] LABS: URINE BARBITURATES SCREEN NEGATIVE; URINE BENZODIAZEPINES SCREEN NEGATIVE; URINE COCAINE SCREEN NEGATIVE; URINE MARIJUANA (THC) SCREEN NEGATIVE; URINE METHADONE SCREEN NEGATIVE; URINE PHENCYCLIDINE SCREEN NEGATIVE
[2020-01-24 23:22] LABS: URINE AMPHETAMINES SCREEN UNCONFIRMED POSITIVE
--- NOTE | 2020-01-24 23:28 | Non Stress Test Report ---
Non Stress Test Datetime Report Generated by CPN: 01/24/2020 23:28 DEMOGRAPHIC EGA NST: 33.4 INDICATION Indication for Study (NST) Other: LC- contractions MONITORING Monitor Explained: Monitor Explained; Test Explained; Patient Verbalized Understanding Time on Monitor: 01/24/2020 21:36 Time off Monitor: 01/24/2020 22:30 NST Duration: 54 NST INTERVENTIONS NST Interventions: PO Hydration; Reposition Patient Physician Notified NST: Dr. Eller BABY A Movement : Present Contraction Frequency : irregular FHR Baseline : 135 Decelerations : None Variability : Moderate 6-25bpm NST Review: Does Not Meet Criteria for Reactive NST NST Review and Verified By : , RN NST Results: Non-Reactive NST COMMENTS NST Comments: Dr. Eller aware that NST not reactive. Pt had BPP that was 8/8 yesterday. MD aware and reveiwed strip. ok with discharge. NST REPORT Report Trigger: Send Report
== END 2020-01-24 23:12 | disposition home or self-care (01) ==
LOC: LC 21:26
PROVIDERS: ATTEND Obstetrics & Gynecology
DX: O47.03 False labor before 37 completed weeks of gestation, third trimester (principal); O09.33 Supervision of pregnancy with insufficient antenatal care, third trimester; Z3A.33 33 weeks gestation of pregnancy; Z88.6 Allergy status to analgesic agent; Z88.8 Allergy status to other drugs, medicaments and biological substances
CPT/HCPCS: 59025; 81001; 80307; J3490 ×2

== ENCOUNTER 2020-03-27 16:49 | Emergency (ER) | payer MEDICAID ==
[2020-03-27 16:58] VITALS: BP 138/82
== END 2020-03-27 17:31 | disposition left against medical advice (07) ==
LOC: ER 16:49
DX: Z53.21 Procedure and treatment not carried out due to patient leaving prior to being seen by health care provider (principal); Z76.0 Encounter for issue of repeat prescription

== ENCOUNTER 2020-04-17 14:57 | Emergency (ER) | payer MEDICAID ==
--- NOTE | 2020-04-17 15:48 | ER Document Report ---
Entered by DEMI JOHN SCRIBE 04/17/20 1521 Acting as scribe for:GIANA GARCIA DO ED General - General Stated Complaint: WITHDRAWAL Mode of Arrival: Medic Information source: Patient Notes: This 34 year old female patient presents to the ED today with complaints of withdrawal symptoms that started prior to arrival. Patient states that she ran out of her anxiety medications (Clonazepam), reporting a headache and feeling "shaky." She mentions that she won't be able to get a new prescription until next week on Tuesday. Denies fever or any known COVID exposure. Denies SI/HI. Patient mentions that she gave via on 02/02 and still has some vaginal spotting and dysuria. Denies any other complaints. TRAVEL OUTSIDE OF THE [place] IN LAST 30 DAYS: No - Related Data Allergies/Adverse Reactions: ketorolac tromethamine [From Toradol] Allergy (Verified 01/24/20 23:36) meperidine HCl [From Demerol] Allergy (Verified 01/24/20 23:36) metoclopramide HCl [From Reglan] Allergy (Verified 01/24/20 23:36) morphine [Morphine] Allergy (Verified 01/24/20 23:36) nalbuphine [From Nubain] Allergy (Verified 01/24/20 23:36) Hives prochlorperazine [From Compazine] Allergy (Verified 01/24/20 23:36) Hives tramadol [Tramadol] Allergy (Verified 01/24/20 23:36) Hives lamotrigine [From Lamictal] Adverse Reaction (Verified 01/24/20 23:36) Hives ondansetron HCl [From Zofran] Adverse Reaction (Verified 01/24/20 23:36) VOMITING Past Medical History - General Information source: Patient, [facility] Records - Social History Smoking Status: Current Some Day Smoker Smoking Education Provided: No Drug Abuse: None Lives with: Spouse/Significant other Family History: Reviewed & Not Pertinent, Arthritis, DM, Hyperlipidemia, Hypertension Patient has suicidal ideation: No Patient has homicidal ideation: No - Past Medical History Cardiac Medical History: Reports: Hx Hypertension Neurological Medical History: Reports: Hx Migraine Musculoskeletal Medical History: Reports Hx Musculoskeletal Trauma Psychiatric Medical History: Reports: Hx Anxiety, Hx Attention Deficit Hypera ctivity Disorder, Hx Bipolar Disorder - Bipolar 1, Hx Depression, Hx Post Traumatic Stress Disorder Traumatic Medical History: Reports: Hx Fractures - nose Past Surgical History: Reports: Hx Abdominal Surgery - LAPROSCOPY, Hx Section - x1, Hx Dilation and Curettage, Hx Gynecologic Surgery - lap for endometriosis, Hx Nose Surgery - Reconstruction for fracture, Other - facial reconstruction - Immunizations Immunizations up to date: Yes Hx Diphtheria, Pertussis, Tetanus Vaccination: Yes - 2010 Review of Systems - Review of Systems Constitutional: See HPI. denies: Fever EENT: No symptoms reported Cardiovascular: No symptoms reported Respiratory: No symptoms reported Gastrointestinal: No symptoms reported Genitourinary: See HPI, Dysuria Female Genitourinary: See HPI, Vaginal bleeding - spotting Musculoskeletal: No symptoms reported Skin: No symptoms reported Hematologic/Lymphatic: No symptoms reported Neurological/Psychological: See HPI, Anxiety, Headaches, Tremor. denies: Homicidal ideation, Suicidal ideation -: Yes All other systems reviewed and negative Physical Exam - Vital signs Vitals: Resp 17 04/17/20 15:07 - General General appearance: Alert, Anxious In distress: None - HEENT Head: Normocephalic, Atraumatic Eyes: Normal Extraocular movements intact: Yes Pupils: PERRL - Respiratory Respiratory status: No respiratory distress Chest status: Nontender Breath sounds: Normal Chest palpation: Normal - Cardiovascular Rhythm: Regular Heart sounds: Normal auscultation Murmur: No Friction rub: No Gallop: None auscultated - Abdominal Inspection: Obese Distension: No distension Bowel sounds: Normal Tenderness: Nontender - Abdomen soft Organomegaly: No organomegaly - Back Back: Normal, Nontender - Extremities General upper extremity: Normal inspection General lower extremity: Normal inspection. No: Edema - Neurological Neuro grossly intact: Yes Cognition: Normal Orientation: AAOx4 [place] Coma Scale Eye Opening: Spontaneous [place] Coma Scale Verbal: Oriented [place] Coma Scale Motor: Obeys Commands [place] Coma Scale Total: 15 Speech: Normal Motor strength normal: LUE, RUE, LLE, RLE Sensory: Normal - Psychological Associated symptoms: Anxious - Skin Skin Temperature: Warm Skin Moisture: Dry Skin Color: Normal Course - Re-evaluation Re-evalutation: 04/17/20 17:34 MDM 34 year old female takes benzodiazepines chronically due to anxiety. She sees a remote psychiatrist - in [place] reportedly - and is due for repeat visit/ telehealth Tuesday. She has run out of her klonipin. She is anxious and expresses concern she may have a seizure. She denies SI or HI. Non toxic here. I feel she is safe for follow up and will give a short course of diazepam for the next few days. She understands return precautions. - Vital Signs Vital signs: Temp Pulse Resp BP Pulse Ox 14 122/81 04/17/20 16:01 04/17/20 16:01 - Laboratory Result Diagrams: 04/17/20 15:35 04/17/20 15:35 Laboratory results interpreted by me: 04/17/20 04/17/20 04/17/20 15:35 15:35 16:57 RBC 3.69 L Hgb 10.8 L Hct 32.7 L Eos % (Auto) 13.7 H Absolute Eos (auto) 0.7 H Chloride 110 H Carbon Dioxide 21 L ALT 45 H Urine Protein 100 H Urine Blood MODERATE H Urine Urobilinogen 2.0 H Ur Leukocyte Esterase TRACE H Discharge - Discharge Clinical Impression: Anxiety about health UTI (urinary tract infection) Qualifiers: Urinary tract infection type: site unspecified Hematuria presence: with hematuria Qualified Code(s): N39.0 - Urinary tract infection, site not specified; R31.9 - Hematuria, unspecified Condition: Stable Disposition: HOME, SELF-CARE Instructions: Cephalexin ([facility]), Urinary Tract Infection ([facility]), Anxiety ([facility]), Family Physicians / Practices Additional Instructions: Keep your follow up with the psychiatrist Tuesday. Please return here for thoughts of self harm or other problems or concerns. Finish the antibiotics. Your medicine has been sent to [facility]. Forms: Smoking Cessation Education I personally performed the services described in the documentation, reviewed and edited the documentation which was dictated to the scribe in my presence, and it accurately records my words and actions.
[2020-04-17] MEDS ORDERED: CLONAZEPAM 1 MG TABLET PO ONE (15:49)
[2020-04-17 15:59] LABS: ABSOLUTE EOSINOPHILS # (AUTO) 0.7 10^3/uL (0.0-0.6); ABSOLUTE LYMPHOCYTES (AUTO) 1.3 10^3/uL (0.5-4.7); ABSOLUTE MONOCYTES (AUTO) 0.4 10^3/uL (0.1-1.4); ABSOLUTE NEUT (AUTO) 2.7 10^3/uL (1.7-8.2); BASOPHILS % (AUTO) 0.4 % (0-2); EOSINOPHILS % (AUTO) 13.7 % (0-6); HEMATOCRIT 32.7 % (36.0-47.0); HEMOGLOBIN 10.8 g/dL (12.0-15.5); LYMPHOCYTES % (AUTO) 25.8 % (13-45); MEAN CORPUSCULAR HEMOGLOBIN 29.2 pg (27.0-33.4); MEAN CORPUSCULAR HGB CONC 32.9 g/dL (32.0-36.0); MEAN CORPUSCULAR VOLUME 89 fl (80-97); MONOCYTES % (AUTO) 7.4 % (3-13); PLATELET COUNT 231 10^3/uL (150-450); RED BLOOD COUNT 3.69 10^6/uL (3.72-5.28); RED CELL DISTRIBUTION WIDTH 13.3 % (11.5-14.0); SEGMENTED NEUTROPHILS % (AUTO) 52.7 % (42-78); TOTAL CELLS COUNTED % (AUTO) 100 %; WHITE BLOOD COUNT 5.1 10^3/uL (4.0-10.5)
[2020-04-17 16:06] LABS: ALBUMIN 4.1 g/dL (3.5-5.0); ALKALINE PHOSPHATASE 103 U/L (38-126); ANION GAP 8 (5-19); ASPARTATE AMINO TRANSFERASE 29 U/L (14-36); BILIRUBIN,DIRECT 0.2 mg/dL (0.0-0.4); BILIRUBIN,TOTAL 0.4 mg/dL (0.2-1.3); BLOOD UREA NITROGEN 7 mg/dL (7-20); CALCIUM 9.2 mg/dL (8.4-10.2); CARBON DIOXIDE 21 mmol/L (22-30); CHLORIDE 110 mmol/L (98-107); GLUCOSE 105 mg/dL (75-110); POTASSIUM 3.6 mmol/L (3.6-5.0); TOTAL PROTEIN 6.8 g/dL (6.3-8.2)
[2020-04-17 16:51] VITALS: BP 122/81
[2020-04-17 17:25] LABS: APPEARANCE,URINE SLIGHTLY-CLOUDY; BILIRUBIN,URINE NEGATIVE (NEGATIVE); COLOR,URINE YELLOW; GLUCOSE, URINE NEGATIVE (NEGATIVE); KETONES,URINE NEGATIVE (NEGATIVE); LEUKOCYTE ESTERASE,URINE TRACE (NEGATIVE); NITRITE,URINE NEGATIVE (NEGATIVE); PROTEIN,URINE 100 mg/dL (NEGATIVE); URINE SPECIFIC GRAVITY 1.015
[2020-04-17 17:28] LABS: ADD MANUAL MICROSCOPIC YES; WBC,URINE 20-30 /HPF
[2020-04-17 17:29] LABS: BACTERIA,URINE 2+ /HPF
[2020-04-17 19:12] LABS: INTERNATIONAL RATION (INR) 1.03; PROTHROMBIN TIME 13.7 SEC (11.4-15.4)
== END 2020-04-17 17:56 | disposition home or self-care (01) ==
LOC: ER 14:57
DX: N39.0 Urinary tract infection, site not specified (principal); R31.9 Hematuria, unspecified; F41.9 Anxiety disorder, unspecified; R51 Headache; N93.9 Abnormal uterine and vaginal bleeding, unspecified; R30.0 Dysuria; Z79.899 Other long term (current) drug therapy; Z88.8 Allergy status to other drugs, medicaments and biological substances; F17.200 Nicotine dependence, unspecified, uncomplicated; I10 Essential (primary) hypertension
CPT/HCPCS: 99283; 36415; 85025; 85610; 81025; 80053; 81001; J3490

== ENCOUNTER 2020-04-22 05:49 | Emergency (ER) | payer MEDICAID ==
[2020-04-22 06:20] VITALS: BP 139/88
[2020-04-22] MEDS ORDERED: DIAZEPAM 5 MG TABLET PO ONE (06:45)
--- NOTE | 2020-04-22 06:50 | ER Document Report ---
ED General - General Chief Complaint: Anxiety Stated Complaint: PRESCRIPTION REFILL Time Seen by Provider: 04/22/20 06:42 TRAVEL OUTSIDE OF THE [place] IN LAST 30 DAYS: No - HPI Patient complains to provider of: Anxiety Notes: Patient requesting several week refill of Valium. Not clear who is managing her patient's prescriptions. States she uses a [place] pharmacy and doctor. Not able to talk to them until morning. Increasing anxiety. No Physical complaints - Related Data Allergies/Adverse Reactions: ketorolac tromethamine [From Toradol] Allergy (Verified 01/24/20 23:36) meperidine HCl [From Demerol] Allergy (Verified 01/24/20 23:36) metoclopramide HCl [From Reglan] Allergy (Verified 01/24/20 23:36) morphine [Morphine] Allergy (Verified 01/24/20 23:36) nalbuphine [From Nubain] Allergy (Verified 01/24/20 23:36) Hives prochlorperazine [From Compazine] Allergy (Verified 01/24/20 23:36) Hives tramadol [Tramadol] Allergy (Verified 01/24/20 23:36) Hives lamotrigine [From Lamictal] Adverse Reaction (Verified 01/24/20 23:36) Hives ondansetron HCl [From Zofran] Adverse Reaction (Verified 01/24/20 23:36) VOMITING Home Medications: valium lithium, prozac Past Medical History - Social History Smoking Status: Current Every Day Smoker Family History: Reviewed & Not Pertinent, Arthritis, DM, Hyperlipidemia, Hypertension - Past Medical History Cardiac Medical History: Reports: Hx Hypertension Neurological Medical History: Reports: Hx Migraine Renal/ Medical History: Denies: Hx Peritoneal Dialysis Musculoskeletal Medical History: Reports Hx Musculoskeletal Trauma Psychiatric Medical History: Reports: Hx Anxiety, Hx Attention Deficit Hyperacti vity Disorder, Hx Bipolar Disorder - Bipolar 1, Hx Depression, Hx Post Traumatic Stress Disorder Traumatic Medical History: Reports: Hx Fractures - nose Past Surgical History: Reports: Hx Abdominal Surgery - LAPROSCOPY, Hx Section - x1, Hx Dilation and Curettage, Hx Gynecologic Surgery - lap for endometriosis, Hx Nose Surgery - Reconstruction for fracture, Other - facial reconstruction - Immunizations Immunizations up to date: Yes Hx Diphtheria, Pertussis, Tetanus Vaccination: Yes - 2010 Review of Systems - Review of Systems Notes: REVIEW OF SYSTEMS: CONSTITUTIONAL: -fevers, -chills EENT: -eye pain, -difficulty swallowing, -nasal congestion CARDIOVASCULAR: -chest pain, -syncope. RESPIRATORY: -cough, -SOB GASTROINTESTINAL: -abdominal pain, -nausea, -vomiting, -diarrhea GENITOURINARY: -dysuria, -hematuria MUSCULOSKELETAL: -back pain, -neck pain SKIN: -rash or skin lesions. HEMATOLOGIC: -easy bruising or bleeding. LYMPHATIC: -swollen, enlarged glands. NEUROLOGICAL: -altered mental status or loss of consciousness, -headache, - neurologic symptoms PSYCHIATRIC: Positive for anxiety ALL OTHER SYSTEMS REVIEWED AND NEGATIVE. Physical Exam - Vital signs Vitals: Temp Pulse Resp BP Pulse Ox 98.8 F 107 H 20 139/88 H 100 04/22/20 06:04/22/20 06:04/22/20 06:04/22/20 06:04/22/20 06:17 - Notes Notes: PHYSICAL EXAMINATION: GENERAL: Well-appearing, well-nourished and in no acute distress. HEAD: Atraumatic, normocephalic. EYES: Pupils equal round, sclera anicteric, conjunctiva are normal. ENT: Surgical mask in place. NECK: Normal range of motion, LUNGS: No respiratory Distress, normal chest rise EXTREMITIES: Normal range of motion, No cyanosis. NEUROLOGICAL: Cranial nerves grossly intact. Normal speech, PSYCH: Normal mood, normal affect. SKIN: Warm, Dry, Course - Re-evaluation Re-evalutation: 04/22/20 06:49 Patient given oral dose of Valium in the emergency department. Had a lengthy conversation that this is not the appropriate place to seek refills for Valium. Will prescribe patient with 4 pills Valium outpatient inform her we will not be refilling this prescription in the emergency department longer she needs to establish care with a local physician. Especially for controlled substances - Vital Signs Vital signs: Temp Pulse Resp BP Pulse Ox 98.8 F 107 H 20 139/88 H 100 04/22/20 06:17 04/22/20 06:04/22/20 06:04/22/20 06:04/22/20 06:17 Discharge - Discharge Clinical Impression: Anxiety about health, Drug-seeking behavior Condition: Stable Disposition: HOME, SELF-CARE Instructions: Anxiety ([facility]) Additional Instructions: Your PCP Prescriptions: Diazepam [Valium 5 mg Tablet] 5 mg PO BID #4 tablet
== END 2020-04-22 07:00 | disposition home or self-care (01) ==
LOC: ER 05:49
DX: F41.9 Anxiety disorder, unspecified (principal); F31.9 Bipolar disorder, unspecified; Z79.899 Other long term (current) drug therapy; Z76.5 Malingerer [conscious simulation]; Z88.8 Allergy status to other drugs, medicaments and biological substances; Z88.6 Allergy status to analgesic agent; Z88.5 Allergy status to narcotic agent
CPT/HCPCS: 99283; J3490

== ENCOUNTER 2020-04-27 14:43 | Emergency (ER) | payer MEDICAID ==
[2020-04-27 14:57] VITALS: BP 138/87
[2020-04-27] MEDS ORDERED: NORMAL SALINE 1000 ML 1,000 ML IV ONE (15:46)
[2020-04-27] MEDS ORDERED: PROMETHAZINE HCL INJ 25 MG/1 ML VIAL IV ONE (15:47)
[2020-04-27] MEDS ORDERED: DIPHENHYDRAMINE HCL 50 MG/ML VIAL IM ONE (15:48)
[2020-04-27] MEDS ORDERED: PROMETHAZINE HCL INJ 50 MG/1 ML VIAL IM STA (16:29)
[2020-04-27] MEDS ORDERED: PROMETHAZINE HCL INJ 50 MG/1 ML VIAL ONE (16:56)
--- NOTE | 2020-04-27 17:22 | ER Document Report ---
ED GI/ - General Chief Complaint: Nausea/Vomiting Stated Complaint: NAUSEA,VOMITING,DIARRHEA Time Seen by Provider: 04/27/20 15:05 Primary Care Provider: CARMEN MATSON MD [Primary Care Provider] - Follow up as needed Mode of Arrival: Ambulatory Information source: Patient Notes: 34-year-old woman who presents to the emergency department with nausea and vomit ing episodes. She states that she had nausea and vomiting during her and since the delivery she has continued to have difficulties. Today she presents because she was unable to keep down the medications that she was prescribed and feels that she needs a shot of Phenergan and Benadryl. She denies any other associated medical issues. She is not breast-feeding her baby and has been doing well otherwise. She is scheduled to see her doctor on Tuesday. TRAVEL OUTSIDE OF THE [place] IN LAST 30 DAYS: No - Related Data Allergies/Adverse Reactions: ketorolac tromethamine [From Toradol] Allergy (Verified 04/27/20 16:12) meperidine HCl [From Demerol] Allergy (Verified 04/27/20 16:12) metoclopramide HCl [From Reglan] Allergy (Verified 04/27/20 16:12) morphine [Morphine] Allergy (Verified 04/27/20 16:12) nalbuphine [From Nubain] Allergy (Verified 04/27/20 16:12) Hives prochlorperazine [From Compazine] Allergy (Verified 04/27/20 16:12) Hives tramadol [Tramadol] Allergy (Verified 04/27/20 16:12) Hives lamotrigine [From Lamictal] Adverse Reaction (Verified 04/27/20 16:12) Hives ondansetron HCl [From Zofran] Adverse Reaction (Verified 04/27/20 16:12) VOMITING Past Medical History - Social History Smoking Status: Current Every Day Smoker Chew tobacco use (# tins/day): No Frequency of alcohol use: None Drug Abuse: None Family History: Reviewed & Not Pertinent, Arthritis, DM, Hyperlipidemia, Hypertension - Past Medical History Cardiac Medical History: Reports: Hx Hypertension Neurological Medical History: Reports: Hx Migraine Renal/ Medical History: Denies: Hx Peritoneal Dialysis Musculoskeletal Medical History: Reports Hx Musculoskeletal Trauma Psychiatric Medical History: Reports: Hx Anxiety, Hx Attention Deficit Hyperactivity Disorder, Hx Bipolar Disorder - Bipolar 1, Hx Depression, Hx Post Traumatic Stress Disorder Traumatic Medical History: Reports: Hx Fractures - nose Past Surgical History: Reports: Hx Abdominal Surgery - LAPROSCOPY, Hx Section - x1, Hx Dilation and Curettage, Hx Gynecologic Surgery - lap for endometriosis, Hx Nose Surgery - Reconstruction for fracture, Other - facial reconstruction - Immunizations Immunizations up to date: Yes Hx Diphtheria, Pertussis, Tetanus Vaccination: Yes - 2010 Review of Systems - Review of Systems Notes: Constitutional: Negative for fever. HENT: Negative for sore throat. Eyes: Negative for visual changes. Cardiovascular: Negative for chest pain. Respiratory: Negative for shortness of breath. Gastrointestinal: See HPI Genitourinary: Negative for dysuria. Musculoskeletal: Negative for back pain. Skin: Negative for rash. Neurological: Negative for headaches, weakness or numbness. 10 point ROS negative except as marked above and in HPI. Physical Exam - Vital signs Vitals: Temp Pulse Resp BP Pulse Ox 98.9 F 110 H 18 138/87 H 99 04/27/20 14:55 04/27/20 14:55 04/27/20 14:55 04/27/20 14:55 04/27/20 14:55 - Notes Notes: PHYSICAL EXAMINATION: Physical Exam: General: Well-nourished well-developed 34-year-old female in no acute distress HEENT: NC/AT, pupils equal round and reactive to light, MM moist,nares clear, oropharynx clear, airway patent Neck: supple, no adenopathy, no masses. Good range of motion Lungs: clear, no wheezing, no rales no rhonchi CVS: Regular rate and rhythm no murmur gallop or rub Abdomen: Soft, active, nontender, no masses, no hepatosplenomegaly Ext: No edema, clubbing or cyanosis. Neuro: Alert and responsive, moving all 4 extremities on command, cranial nerves intact, no focal findings Skin: Intact no open lesions, no rash PSYCH: Normal mood, normal affect. Course - Re-evaluation Re-evalutation: 04/28/20 01:38 Patient was given the IM injections, I ordered a liter of normal saline, the patient refused the IV stating that she has to go home. She does not want the fluids and does not want a new prescription. She is being discharged home to follow-up per her appointment. - Vital Signs Vital signs: Temp Pulse Resp BP Pulse Ox 98.9 F 110 H 18 138/87 H 99 04/27/20 14:55 04/27/20 14:55 04/27/20 14:55 04/27/20 14:55 04/27/20 14:55 - Laboratory Laboratory results interpreted by me: 04/27/20 17:05 Urine Protein 100 H Urine Ketones TRACE H Urine Blood MODERATE H Urine Urobilinogen 2.0 H Leukocyte Esterase Rfl TRACE H Discharge - Discharge Clinical Impression: Nausea and vomiting Qualifiers: Vomiting type: unspecified Vomiting Intractability: unspecified Qualified Code(s): R11.2 - Nausea with vomiting, unspecified Condition: Good Disposition: HOME, SELF-CARE Instructions: Viral Syndrome ([facility]) Additional Instructions: You are seen in the emergency department today with nausea and vomiting. Apparently this ongoing problem has been continuing since your . Please follow-up with your primary doctor regarding long-term management and further evaluation. If your symptoms are worsening or if you have other concerns you may return to the emergency department for further evaluation and treatment HOME CARE INSTRUCTIONS & INFORMATION: Thank you for choosing us for your medical needs. We hope you're satisfied with the care you received. After you leave, you must properly care for your problem and, at the same time, observe its progress. Any condition can change. Some illnesses can change rapidly over hours or days. If your condition worsens, return to the Emergency Department or see your physician promptly. ABOUT YOUR X-RAYS AND EKG'S: If you had an EKG or X-rays taken, they have been read by the Emergency Physician. The X-rays and EKG's will also be read by a Radiologist or Warp Placer within 24 hours. If discrepancies are noted, you will be notified by telephone. Please be certain the ED has a correct telephone number & address where you can be reached. Also, realize that some fractures or abnormalities do not show up on initial X-rays. If your symptoms continue, see your physician. ABOUT YOUR LABORATORY TEST: If you had laboratory tests, the results have been reviewed by the Emergency Physician. Some test results (for example cultures) may not be available for several days. You will be contacted if any test result shows you need additional treatment. Please be certain the ED has a correct telephone number and address where you can be reached. ABOUT YOUR MEDICATIONS: You will receive instructions on how to take your medicine on the prescription label you receive. Additional information may be provided by the Pharmacy. If you have questions afterwards, call the ED for clarification or further instructions. Some prescribed medications may cause drowsiness. Do not perform tasks such as driving a car or operating machinery without consulting your Pharmacist. If you feel you need a refill of pain medication, your condition will need re-evaluation. Please do not call for a refill of any medication. ABOUT YOUR SIGNATURE: Signature of this document acknowledges to followin. Understanding that you received emergency treatment and that you may be released before al medical problems are known or treated. Please be certain the ED has a correct phone number & address where you can be reached. 2. Acknowledgement that you will arrange for follow-up care as recommended. 3. Authorization for the Emergency Physician to provide information to your follow-up Physician in order to maximize your care. AT ANY TIME, IF YOUR SYMPTOMS CHANGE SIGNIFICANTLY OR WORSEN OR YOU DEVELOP NEW SYMPTOMS, RETURN TO THE EMERGENCY DEPARTMENT IMMEDIATELY FOR RE-EVALUATION. OUR GOAL IS TO PROVIDE EXCELLENT MEDICAL CARE! WE HOPE THAT WE HAVE MET YOUR EXPECTATIONS DURING YOUR EMERGENCY DEPARTMENT VISIT AND THAT YOU FEEL YOU HAVE RECEIVED EXCELLENT CARE! Referrals: CARMEN MATSON MD [Primary Care Provider] - Follow up as needed
[2020-04-27 17:31] LABS: APPEARANCE,URINE CLOUDY; BILIRUBIN,URINE NEGATIVE (NEGATIVE); COLOR,URINE YELLOW; GLUCOSE, URINE NEGATIVE (NEGATIVE); KETONES,URINE TRACE mg/dL (NEGATIVE); PROTEIN,URINE 100 mg/dL (NEGATIVE)
== END 2020-04-27 17:37 | disposition home or self-care (01) ==
LOC: ER 14:43
DX: R11.2 Nausea with vomiting, unspecified (principal); F17.200 Nicotine dependence, unspecified, uncomplicated; I10 Essential (primary) hypertension; Z88.8 Allergy status to other drugs, medicaments and biological substances; Z88.6 Allergy status to analgesic agent; Z88.5 Allergy status to narcotic agent
CPT/HCPCS: 99284; 96372; 81001; J1200; J2550

== ENCOUNTER 2020-04-29 10:32 | Emergency (ER) | payer MEDICAID, OTHER ==
[2020-04-29] MEDS ORDERED: NORMAL SALINE 1000 ML 1,000 ML IV ONE (12:31)
[2020-04-29] MEDS ORDERED: PROMETHAZINE HCL INJ 50 MG/1 ML VIAL IM ONE (12:32)
[2020-04-29] MEDS ORDERED: DIPHENHYDRAMINE HCL 50 MG/ML VIAL IM ONE (12:32)
[2020-04-29] MEDS ORDERED: PROMETHAZINE HCL INJ 25 MG/1 ML VIAL ONE (12:41)
--- NOTE | 2020-04-29 13:11 | ER Document Report ---
ED Flu Like - General Chief Complaint: Flu Symptoms Stated Complaint: VOMITING,CHILLS Time Seen by Provider: 04/29/20 11:55 Primary Care Provider: CARMEN MATSON MD [Primary Care Provider] - Follow up as needed Mode of Arrival: Ambulatory Information source: Patient Notes: Patient presents with a one-month history of congestion, body aches, nausea vomiting diarrhea. Patient states she is vomited 3 times today and had diarrhea about 5. Patient denies any fever or cough. Patient complains of headache and generalized body aches. Patient reports having a negative cover test at her doctor's office prior to arrival. Patient was advised to come here as she had continued body pain. Patient states she had outpatient lab work performed in her primary doctor's office. TRAVEL OUTSIDE OF THE [place] IN LAST 30 DAYS: No - HPI Onset: Other - 1 month Timing/Duration: Persistent Quality of pain: Achy Pain Level: 5 Associated symptoms: Body/muscle aches, Diarrhea, Headache, Nausea, Vomiting. denies: Chest pain, Nonproductive cough, Productive cough, Fever, Sore throat Similar symptoms previously: Yes Recently seen / treated by doctor: Yes - Related Data Allergies/Adverse Reactions: ketorolac tromethamine [From Toradol] Allergy (Verified 04/29/20 11:44) meperidine HCl [From Demerol] Allergy (Verified 04/29/20 11:44) metoclopramide HCl [From Reglan] Allergy (Verified 04/29/20 11:44) morphine [Morphine] Allergy (Verified 04/29/20 11:44) nalbuphine [From Nubain] Allergy (Verified 04/29/20 11:44) Hives prochlorperazine [From Compazine] Allergy (Verified 04/29/20 11:44) Hives tramadol [Tramadol] Allergy (Verified 04/29/20 11:44) Hives lamotrigine [From Lamictal] Adverse Reaction (Verified 04/29/20 11:44) Hives ondansetron HCl [From Zofran] Adverse Reaction (Verified 04/29/20 11:44) VOMITING Past Medical History - General Information source: Patient - Social History Smoking Status: Current Every Day Smoker Frequency of alcohol use: None Drug Abuse: None Occupation: None Family History: Reviewed & Not Pertinent, Arthritis, DM, Hyperlipidemia, Hypertension Patient has homicidal ideation: No - Past Medical History Cardiac Medical History: Reports: Hx Hypertension Neurological Medical History: Reports: Hx Migraine Renal/ Medical History: Reports: Other - Endometriosis. Denies: Hx Peritoneal Dialysis Musculoskeletal Medical History: Reports Hx Musculoskeletal Trauma Psychiatric Medical History: Reports: Hx Anxiety, Hx Attention Deficit Hyperactivity Disorder, Hx Bipolar Disorder - Bipolar 1, Hx Depression, Hx Post Traumatic Stress Disorder Traumatic Medical History: Reports: Hx Fractures - nose Past Surgical History: Reports: Hx Abdominal Surgery - LAPROSCOPY, Hx Section - x1, Hx Dilation and Curettage, Hx Gynecologic Surgery - lap for endometriosis, Hx Nose Surgery - Reconstruction for fracture, Other - facial reconstruction - Immunizations Immunizations up to date: Yes Hx Diphtheria, Pertussis, Tetanus Vaccination: Yes - 2010 Review of Systems - Review of Systems Constitutional: No symptoms reported. denies: Fever EENT: Nose congestion Cardiovascular: No symptoms reported. denies: Chest pain Respiratory: No symptoms reported. denies: Cough, Short of breath Gastrointestinal: Diarrhea, Nausea, Vomiting Genitourinary: No symptoms reported. denies: Dysuria, Flank pain Female Genitourinary: No symptoms reported Musculoskeletal: Back pain, Muscle pain Skin: No symptoms reported Hematologic/Lymphatic: No symptoms reported Neurological/Psychological: Headaches. denies: Confusion, Weakness, Gait changes Physical Exam - Vital signs Vitals: Temp Pulse Resp BP Pulse Ox 98.7 F 104 H 16 124/75 100 04/29/20 10:36 04/29/20 10:36 04/29/20 10:36 04/29/20 10:36 04/29/20 10:36 - Notes Notes: PHYSICAL EXAMINATION: GENERAL: Well-appearing and in no acute distress. HEAD: Atraumatic, normocephalic. EYES: sclera anicteric, conjunctiva are normal. ENT: nares patent. Moist mucous membranes. NECK: Normal range of motion, supple without lymphadenopathy LUNGS: CTAB and equal. No wheezes rales or rhonchi. HEART: Regular rate and rhythm without murmurs ABDOMEN: Soft, nontender, normal bowel sounds, no guarding. EXTREMITIES: Normal range of motion, no pitting edema. BACK: Generalized tenderness but no midline spinal tenderness NEUROLOGICAL: Cranial nerves grossly intact. Normal speech. Normal gait. PSYCH: Normal mood, normal affect. SKIN: Warm, Dry, normal turgor, no rashes or lesions noted Course - Re-evaluation Re-evalutation: 04/29/20 13:08 Patient reports that she was at her primary doctor's office this morning and they did lab work as well as a rapid COVID test but they told her to come here for further evaluation because she was having continued pain symptoms. Patient confronted with controlled substance database demonstrating that patient has seen numerous providers for controlled substances over the past year and has had numerous pharmacies fill her medications over the past 2 years. Patient advised that we can do IV fluids help manage her nausea and vomiting symptoms but that only nonnarcotic pain medication will be ordered for her generalized body aches at this time. 04/29/20 14:00 Nursing staff reports that patient is refusing any IV at this time but is agreeable with IM injection of her medications. 04/29/20 14:10 The patient has decided not to proceed with further recommended testing or treatment to determine the cause of her symptoms. The risk and alternatives to the recommendation were discussed the patient voiced understanding. The patient appears clinically to have the capacity to make this decision. The patient was instructed that they could return to the ER at any time to complete the testing or treatment. - Vital Signs Vital signs: Temp Pulse Resp BP Pulse Ox 98.1 F 83 18 117/72 99 04/29/20 14:13 04/29/20 14:13 04/29/20 14:13 04/29/20 14:13 04/29/20 14:13 Discharge - Discharge Clinical Impression: Nausea vomiting and diarrhea, Body aches Disposition: AGAINST MEDICAL ADVICE Referrals: CARMEN MATSON MD [Primary Care Provider] - Follow up as needed
[2020-04-29 14:14] VITALS: BP 117/72
== END 2020-04-29 14:17 | disposition left against medical advice (07) ==
LOC: ER 10:32
DX: R11.2 Nausea with vomiting, unspecified (principal); R19.7 Diarrhea, unspecified; M79.10 Myalgia, unspecified site; R51 Headache; M54.9 Dorsalgia, unspecified; F17.200 Nicotine dependence, unspecified, uncomplicated; I10 Essential (primary) hypertension; Z88.8 Allergy status to other drugs, medicaments and biological substances; Z88.6 Allergy status to analgesic agent; Z88.5 Allergy status to narcotic agent; Z53.20 Procedure and treatment not carried out because of patient's decision for unspecified reasons
CPT/HCPCS: 99284; 96372; J1200; J2550

== ENCOUNTER 2020-05-21 19:24 | Emergency (ER) | payer MEDICAID ==
--- NOTE | 2020-05-21 20:18 | ER Document Report ---
ED Medical Screen (RME) - General Stated Complaint: POSSIBLE ANXIETY Time Seen by Provider: 05/21/20 20:10 Primary Care Provider: CARMEN MATSON MD [Primary Care Provider] - Follow up as needed Mode of Arrival: Wheelchair Information source: Patient Notes: HPI; 34-year-old female medical history significant for anxiety presents to the emergency room stating that she has having withdrawal symptoms from running out of her Klonopin and her Flexeril yesterday. Patient states she started with nausea vomiting and diarrhea yesterday as she has not had a medication in 2 days. She is not requesting a prescription she is just requesting to be dosed with her Klonopin and Flexeril as normally prescribed. She denies any recent travel. She denies any known COVID-19 exposure. Patient states she was recently tested for COVID 2 weeks ago that was negative. PE: Alert and oriented x3. Mild distress noted. Lungs: Clear to auscultation without rales, rhonchi, wheezes. Heart: Tachycardic without murmurs, rubs, gallops. I have greeted and performed a rapid initial assessment of this patient. A comprehensive ED assessment and evaluation of the patient, analysis of test results and completion of the medical decision making process will be conducted by additional ED providers. I have specifically instructed the patient or family members with the patient to immediately return to any nursing staff should anything change in the patient's condition or with their chief complaint. TRAVEL OUTSIDE OF THE [place] IN LAST 30 DAYS: No - Related Data Allergies/Adverse Reactions: ketorolac tromethamine [From Toradol] Allergy (Verified 04/29/20 11:44) meperidine HCl [From Demerol] Allergy (Verified 04/29/20 11:44) metoclopramide HCl [From Reglan] Allergy (Verified 04/29/20 11:44) morphine [Morphine] Allergy (Verified 04/29/20 11:44) nalbuphine [From Nubain] Allergy (Verified 04/29/20 11:44) Hives prochlorperazine [From Compazine] Allergy (Verified 04/29/20 11:44) Hives tramadol [Tramadol] Allergy (Verified 04/29/20 11:44) Hives lamotrigine [From Lamictal] Adverse Reaction (Verified 04/29/20 11:44) Hives ondansetron HCl [From Zofran] Adverse Reaction (Verified 04/29/20 11:44) VOMITING Past Medical History - Social History Family history: None - Past Medical History Cardiac Medical History: Reports: Hx Hypertension Neurological Medical History: Reports: Hx Migraine Renal/ Medical History: Denies: Hx Peritoneal Dialysis Musculoskeltal Medical History: Reports Hx Musculoskeletal Trauma Psychiatric Medical History: Reports: Hx Anxiety, Hx Attention Deficit Hyperactivity Disorder, Hx Bipolar Disorder - Bipolar 1, Hx Depression, Hx Post Traumatic Stress Disorder Traumatic Medical History: Reports: Hx Fractures - nose Past Surgical History: Reports: Hx Abdominal Surgery - LAPROSCOPY, Hx Section - x1, Hx Dilation and Curettage, Hx Gynecologic Surgery - lap for endometriosis, Hx Nose Surgery - Reconstruction for fracture, Other - facial reconstruction - Immunizations Immunizations up to date: Yes Hx Diphtheria, Pertussis, Tetanus Vaccination: Yes - 2010 Physical Exam - Vital signs Vitals: Temp Pulse Resp BP Pulse Ox 98.8 F 16 L 16 143/84 H 99 05/21/20 19:47 05/21/20 19:47 05/21/20 19:47 05/21/20 19:47 05/21/20 19:47 Course - Vital Signs Vital signs: Temp Pulse Resp BP Pulse Ox 98.8 F 16 L 16 143/84 H 99 05/21/20 19:47 05/21/20 19:47 05/21/20 19:47 05/21/20 19:47 05/21/20 19:47 Doctor's Discharge - Discharge Referrals: CARMEN MATSON MD [Primary Care Provider] - Follow up as needed
[2020-05-21] MEDS ORDERED: HYDROXYZINE PAMOATE 25 MG CAPSULE PO ONE (22:53)
--- NOTE | 2020-05-21 22:56 | ER Document Report ---
Doctor's Note Notes: 05/21/20 22:54 Unable to get patient's blood as of yet. Patient did give us a urine specimen showing that she has a negative test. Patient states she is not currently breast-feeding. Patient has asked multiple times for Flexeril as well as Klonopin. Reviewed patient's medical records and medication refills she is not due for any medication refills until May 24 for the Klonopin and May 29 for the Flexeril. Counseled patient as to why she has run out of her medications and she said that she has been taking them as prescribed and she ran out. Discussed with patient that she should not be out of her medications if she is taking them as prescribed because she is not due for refills at this time. Patient was counseled that I will not give her her anxiety medications in the triage area. Patient then requested Vistaril which was ordered. Counseled patient that with the nausea vomiting and diarrhea we need to secure that she does not have any other medical reasons for her symptoms. Patient keeps insisting "there from my withdrawal". Patient was counseled that I am not comfortable giving her those medications that she should not currently be out of them. Will medicate with Vistaril. Labs are still pending.
[2020-05-21 23:14] LABS: ABSOLUTE BASOPHILS # (AUTO) 0.1 10^3/uL (0.0-0.2); ABSOLUTE EOSINOPHILS # (AUTO) 0.4 10^3/uL (0.0-0.6); ABSOLUTE LYMPHOCYTES (AUTO) 2.4 10^3/uL (0.5-4.7); ABSOLUTE MONOCYTES (AUTO) 0.6 10^3/uL (0.1-1.4); ABSOLUTE NEUT (AUTO) 4.2 10^3/uL (1.7-8.2); BASOPHILS % (AUTO) 0.8 % (0-2); EOSINOPHILS % (AUTO) 5.7 % (0-6); HEMATOCRIT 36.7 % (36.0-47.0); HEMOGLOBIN 12.3 g/dL (12.0-15.5); LYMPHOCYTES % (AUTO) 31.4 % (13-45); MEAN CORPUSCULAR HGB CONC 33.4 g/dL (32.0-36.0); MEAN CORPUSCULAR VOLUME 87 fl (80-97); MONOCYTES % (AUTO) 8.1 % (3-13); PLATELET COUNT 234 10^3/uL (150-450); RED BLOOD COUNT 4.24 10^6/uL (3.72-5.28); RED CELL DISTRIBUTION WIDTH 14.4 % (11.5-14.0); TOTAL CELLS COUNTED % (AUTO) 100 %; WHITE BLOOD COUNT 7.8 10^3/uL (4.0-10.5)
[2020-05-21 23:32] LABS: ALBUMIN 5.2 g/dL (3.5-5.0); ALKALINE PHOSPHATASE 108 U/L (38-126); ANION GAP 12 (5-19); ASPARTATE AMINO TRANSFERASE 47 U/L (14-36); BILIRUBIN,DIRECT 0.4 mg/dL (0.0-0.4); BILIRUBIN,TOTAL 0.4 mg/dL (0.2-1.3); BLOOD UREA NITROGEN 9 mg/dL (7-20); CARBON DIOXIDE 24 mmol/L (22-30); CHLORIDE 103 mmol/L (98-107); GLUCOSE 109 mg/dL (75-110); POTASSIUM 4.1 mmol/L (3.6-5.0); TOTAL PROTEIN 8.4 g/dL (6.3-8.2)
[2020-05-22] MEDS ORDERED: DIAZEPAM 5 MG TABLET PO ONE (02:01)
[2020-05-22 02:04] VITALS: BP 139/94
--- NOTE | 2020-05-22 02:10 | ER Document Report ---
ED General - General Chief Complaint: Anxiety Stated Complaint: POSSIBLE ANXIETY Time Seen by Provider: 05/21/20 20:10 Primary Care Provider: CARMEN MATSON MD [Primary Care Provider] - Follow up as needed Mode of Arrival: Wheelchair TRAVEL OUTSIDE OF THE [place] IN LAST 30 DAYS: No - HPI Context: 34 year old female arrives here with complaints of having "withdrawals" from being out of her klonopin. Due for a refill the beginning of May. No fever or chills. She was concerned her vomiting and diarrhea earlier today which was trivial in description was due to withdrawing from the klonopin. When I let her know that benzos would not cause loose stool or vomiting she discounted those symptoms and told me it was surely anxiety that caused her to come tonight. No SI or HI and no hallucinations. She did not drive here. She lives at home with family support. Exacerbated by: Denies Relieved by: Denies - Related Data Allergies/Adverse Reactions: ketorolac tromethamine [From Toradol] Allergy (Verified 04/29/20 11:44) meperidine HCl [From Demerol] Allergy (Verified 04/29/20 11:44) metoclopramide HCl [From Reglan] Allergy (Verified 04/29/20 11:44) morphine [Morphine] Allergy (Verified 04/29/20 11:44) nalbuphine [From Nubain] Allergy (Verified 04/29/20 11:44) Hives prochlorperazine [From Compazine] Allergy (Verified 04/29/20 11:44) Hives tramadol [Tramadol] Allergy (Verified 04/29/20 11:44) Hives lamotrigine [From Lamictal] Adverse Reaction (Verified 04/29/20 11:44) Hives ondansetron HCl [From Zofran] Adverse Reaction (Verified 04/29/20 11:44) VOMITING Home Medications: clonazepam, felexeril, benadryl, phenergan Past Medical History - General Information source: Patient - Social History Smoking Status: Current Every Day Smoker Family History: Reviewed & Not Pertinent, Arthritis, DM, Hyperlipidemia, Hypertension - Past Medical History Cardiac Medical History: Reports: Hx Hypertension Neurological Medical History: Reports: Hx Migraine Renal/ Medical History: Denies: Hx Peritoneal Dialysis Musculoskeletal Medical History: Reports Hx Musculoskeletal Trauma Psychiatric Medical History: Reports: Hx Anxiety, Hx Attention Deficit Hyperactivity Disorder, Hx Bipolar Disorder - Bipolar 1, Hx Depression, Hx Post Traumatic Stress Disorder Traumatic Medical History: Reports: Hx Fractures - nose Past Surgical History: Reports: Hx Abdominal Surgery - LAPROSCOPY, Hx Section - x1, Hx Dilation and Curettage, Hx Gynecologic Surgery - lap for endometriosis, Hx Nose Surgery - Reconstruction for fracture, Other - facial reconstruction - Immunizations Immunizations up to date: Yes Hx Diphtheria, Pertussis, Tetanus Vaccination: Yes - 2010 Review of Systems - Review of Systems Constitutional: No symptoms reported EENT: No symptoms reported Cardiovascular: No symptoms reported Respiratory: No symptoms reported Gastrointestinal: No symptoms reported Genitourinary: No symptoms reported Female Genitourinary: No symptoms reported Musculoskeletal: No symptoms reported Skin: No symptoms reported Hematologic/Lymphatic: No symptoms reported Neurological/Psychological: Anxiety. denies: No symptoms reported Physical Exam - Vital signs Vitals: Temp Resp BP Pulse Ox 98.8 F 16 143/84 H 99 05/21/20 19:47 05/21/20 19:47 05/21/20 19:47 05/21/20 19:47 Interpretation: Normal - General General appearance: Appears well, Alert - HEENT Head: Normocephalic, Atraumatic Eyes: Normal Pupils: PERRL - Respiratory Respiratory status: No respiratory distress Chest status: Nontender Breath sounds: Normal Chest palpation: Normal - Cardiovascular Rhythm: Regular Heart sounds: Normal auscultation Murmur: No - Abdominal Inspection: Normal Distension: No distension Bowel sounds: Normal Tenderness: Nontender Organomegaly: No organomegaly - Back Back: Normal, Nontender - Extremities General upper extremity: Normal inspection, Nontender, Normal color, Normal ROM, Normal temperature General lower extremity: Normal inspection, Nontender, Normal color, Normal ROM, Normal temperature, Normal weight bearing. No: Yovani's sign - Neurological Neuro grossly intact: Yes Cognition: Normal Orientation: AAOx4 [place] Coma Scale Eye Opening: Spontaneous [place] Coma Scale Verbal: Oriented [place] Coma Scale Motor: Obeys Commands Ron Coma Scale Total: 15 Speech: Normal Motor strength normal: LUE, RUE, LLE, RLE Sensory: Normal - Psychological Associated symptoms: Normal affect, Normal mood - Skin Skin Temperature: Warm Skin Moisture: Dry Skin Color: Normal Course - Re-evaluation Re-evalutation: 05/22/20 02:10 MDM 34 year old that espouses anxiety as her complaint. She is nontoxic here and not dangerous to self or others. Will give one dose of 10 mg diazepam to her and she is to follow up. Discussed with her she should not be out of her medicine and she is not sure why she is short by 2 days. She understands she may return here for any problems or any concerns. - Vital Signs Vital signs: Temp Pulse Resp BP Pulse Ox 98.1 F 91 20 139/94 H 100 05/22/20 02:03 05/22/20 02:03 05/22/20 02:03 05/22/20 02:03 05/22/20 02:03 - Laboratory Result Diagrams: 05/21/20 23:06 05/21/20 23:06 Laboratory results interpreted by me: 05/21/20 05/21/20 23:06 23:06 RDW 14.4 H AST 47 H ALT 99 H Total Protein 8.4 H Albumin 5.2 H Discharge - Discharge Clinical Impression: Anxiety about health Condition: Stable Disposition: HOME, SELF-CARE Instructions: Anxiety ([facility]) Additional Instructions: See your doctor in follow. Discuss having this class of medicines weaned to plan on discontinuing them. Please return here for seizure, or other problems or other concerns including but not limited to thoughts of self harm or other concerns. Referrals: CARMEN MATSON MD [Primary Care Provider] - Follow up as needed
== END 2020-05-22 02:23 | disposition home or self-care (01) ==
LOC: ER 19:24
DX: F41.9 Anxiety disorder, unspecified (principal); R11.10 Vomiting, unspecified; R19.7 Diarrhea, unspecified; Z79.899 Other long term (current) drug therapy; F17.200 Nicotine dependence, unspecified, uncomplicated; I10 Essential (primary) hypertension
CPT/HCPCS: 99283; 36415; 85025; 81025; 80053; J3490 ×2

== ENCOUNTER 2020-06-09 17:54 | Emergency (ER) | payer MEDICAID ==
[2020-06-09 17:58] VITALS: BP 126/77
[2020-06-09] MEDS ORDERED: PROMETHAZINE HCL 25 MG TABLET PO ONE (19:19)
[2020-06-09] MEDS ORDERED: PHENAZOPYRIDINE HCL 100 MG TABLET PO ONE (19:20)
[2020-06-09] MEDS ORDERED: DIPHENHYDRAMINE HCL 25 MG CAPSULE PO ONE (19:20)
--- NOTE | 2020-06-09 19:23 | ER Document Report ---
ED Medical Screen (RME) - General Chief Complaint: Urinary Problem Stated Complaint: URINARY PROBLEMS Time Seen by Provider: 06/09/20 19:15 Primary Care Provider: CARMEN MATSON MD [Primary Care Provider] - Follow up as needed Notes: 34-year-old female presented ED for complaint of nausea and vomiting since last night. She states she has vomited 3-4 times today. She states she also has UTI symptoms. She states she has burning frequency and urgency. She states she has suprapubic pain. She states she just [facility] on Tuesday and got her Depo shot after the did a negative test. We will order Pyridium Phenergan and Benadryl she will receive after she gets her urine I have greeted and performed a rapid initial assessment of this patient. A comprehensive ED assessment and evaluation of the patient, analysis of test results and completion of medical decision making process will be conducted by an additional ED providers. TRAVEL OUTSIDE OF THE [place] IN LAST 30 DAYS: No - Related Data Allergies/Adverse Reactions: ketorolac tromethamine [From Toradol] Allergy (Verified 04/29/20 11:44) meperidine HCl [From Demerol] Allergy (Verified 04/29/20 11:44) metoclopramide HCl [From Reglan] Allergy (Verified 04/29/20 11:44) morphine [Morphine] Allergy (Verified 04/29/20 11:44) nalbuphine [From Nubain] Allergy (Verified 04/29/20 11:44) Hives prochlorperazine [From Compazine] Allergy (Verified 04/29/20 11:44) Hives tramadol [Tramadol] Allergy (Verified 04/29/20 11:44) Hives lamotrigine [From Lamictal] Adverse Reaction (Verified 04/29/20 11:44) Hives ondansetron HCl [From Zofran] Adverse Reaction (Verified 04/29/20 11:44) VOMITING Past Medical History - Social History Frequency of alcohol use: None Drug Abuse: None Family history: None - Past Medical History Cardiac Medical History: Reports: Hx Hypertension Neurological Medical History: Reports: Hx Migraine Renal/ Medical History: Denies: Hx Peritoneal Dialysis Musculoskeltal Medical History: Reports Hx Musculoskeletal Trauma Psychiatric Medical History: Reports: Hx Anxiety, Hx Attention Deficit Hyperactivity Disorder, Hx Bipolar Disorder - Bipolar 1, Hx Depression, Hx Post Traumatic Stress Disorder Traumatic Medical History: Reports: Hx Fractures - nose Past Surgical History: Reports: Hx Abdominal Surgery - LAPROSCOPY, Hx Section - x1, Hx Dilation and Curettage, Hx Gynecologic Surgery - lap for endome triosis, Hx Nose Surgery - Reconstruction for fracture, Other - facial reconstruction - Immunizations Immunizations up to date: Yes Hx Diphtheria, Pertussis, Tetanus Vaccination: Yes - 2010 Physical Exam - Vital signs Vitals: Temp Pulse Resp BP Pulse Ox 98.2 F 109 H 16 126/77 H 100 06/09/20 17:57 06/09/20 17:57 06/09/20 17:57 06/09/20 17:57 06/09/20 17:57 Course - Vital Signs Vital signs: Temp Pulse Resp BP Pulse Ox 98.2 F 109 H 16 126/77 H 100 06/09/20 17:57 06/09/20 17:57 06/09/20 17:57 06/09/20 17:57 06/09/20 17:57 Doctor's Discharge - Discharge Referrals: CARMEN MATSON MD [Primary Care Provider] - Follow up as needed
[2020-06-09 19:40] LABS: APPEARANCE,URINE TURBID; BILIRUBIN,URINE SMALL (NEGATIVE); COLOR,URINE YELLOW; GLUCOSE, URINE NEGATIVE (NEGATIVE); KETONES,URINE NEGATIVE (NEGATIVE); LEUKOCYTE ESTERASE,URINE MODERATE (NEGATIVE); NITRITE,URINE POSITIVE (NEGATIVE); PROTEIN,URINE >=500 mg/dL (NEGATIVE); URINE SPECIFIC GRAVITY 1.029
[2020-06-09] MEDS ORDERED: HYDROCODONE/ACETAMINOPHEN 5-325 MG TABLET PO ONE (21:11)
[2020-06-09] MEDS ORDERED: CEFTRIAXONE 1 GM/D5W RTU 1 GM/50 ML RTUPB IV ONE (21:12)
[2020-06-09] MEDS ORDERED: NORMAL SALINE 1000 ML 1,000 ML IV ONE (21:12)
--- NOTE | 2020-06-09 21:13 | ER Document Report ---
ED GI/ - General Chief Complaint: Vomiting Stated Complaint: URINARY PROBLEMS Time Seen by Provider: 06/09/20 19:15 Primary Care Provider: CARMEN MATSON MD [Primary Care Provider] - Follow up as needed Mode of Arrival: Ambulatory Information source: Patient Notes: 34-year-old female past medical history significant for hypertension and endometriosis presents to the emergency room complaining of dysuria for the past week. States it has gotten worse over the past 3 days. Complains of bladder pressure and urgency. She denies any nausea, vomiting, no diarrhea, no abdominal pain, no recent travel. No COVID-19 exposure. States she took Motrin and Tylenol at 4 PM. She denies any fevers. No history of recent UTIs. Denies any vaginal discharge or bleeding. States she restarted on Depo 3 days ago. TRAVEL OUTSIDE OF THE [place] IN LAST 30 DAYS: No - Related Data Allergies/Adverse Reactions: ketorolac tromethamine [From Toradol] Allergy (Verified 04/29/20 11:44) meperidine HCl [From Demerol] Allergy (Verified 04/29/20 11:44) metoclopramide HCl [From Reglan] Allergy (Verified 04/29/20 11:44) morphine [Morphine] Allergy (Verified 04/29/20 11:44) nalbuphine [From Nubain] Allergy (Verified 04/29/20 11:44) Hives prochlorperazine [From Compazine] Allergy (Verified 04/29/20 11:44) Hives tramadol [Tramadol] Allergy (Verified 04/29/20 11:44) Hives lamotrigine [From Lamictal] Adverse Reaction (Verified 04/29/20 11:44) Hives ondansetron HCl [From Zofran] Adverse Reaction (Verified 04/29/20 11:44) VOMITING Past Medical History - General Information source: Patient - Social History Smoking Status: Former Smoker Frequency of alcohol use: None Drug Abuse: None Family History: Reviewed & Not Pertinent, Arthritis, DM, Hyperlipidemia, Hypertension Patient has homicidal ideation: No - Past Medical History Cardiac Medical History: Reports: Hx Hypertension Neurological Medical History: Reports: Hx Migraine Renal/ Medical History: Denies: Hx Peritoneal Dialysis Musculoskeletal Medical History: Reports Hx Musculoskeletal Trauma Psychiatric Medical History: Reports: Hx Anxiety, Hx Attention Deficit Hyperactivity Disorder, Hx Bipolar Disorder - Bipolar 1, Hx Depression, Hx Post Traumatic Stress Disorder Traumatic Medical History: Reports: Hx Fractures - nose Past Surgical History: Reports: Hx Abdominal Surgery - LAPROSCOPY, Hx Section - x1, Hx Dilation and Curettage, Hx Gynecologic Surgery - lap for endometriosis, Hx Nose Surgery - Reconstruction for fracture, Other - facial reconstruction - Immunizations Immunizations up to date: Yes Hx Diphtheria, Pertussis, Tetanus Vaccination: Yes - 2010 Review of Systems - Review of Systems Constitutional: No symptoms reported EENT: No symptoms reported Cardiovascular: No symptoms reported Respiratory: No symptoms reported Gastrointestinal: denies: Abdominal pain, Diarrhea, Nausea, Vomiting Genitourinary: Dysuria, Urgency, Other - Pressure Musculoskeletal: No symptoms reported Skin: No symptoms reported Neurological/Psychological: No symptoms reported -: Yes All other systems reviewed and negative Physical Exam - Vital signs Vitals: Temp Pulse Resp BP Pulse Ox 98.2 F 109 H 16 126/77 H 100 06/09/20 17:57 06/09/20 17:57 06/09/20 17:57 06/09/20 17:57 06/09/20 17:57 - Notes Notes: GENERAL: Mild acute distress, non-toxic appearance. HEAD: Normal with no signs of head trauma. EYES: PERRLA, EOMI, conjunctiva normal, no discharge. EARS: Hearing grossly intact. NOSE: Normal. THROAT: Oropharynx is normal. NECK: Normal range of motion, no tenderness, supple, no lymphadenopathy, No adenopathy, no JVD. CHEST: Clear breath sounds bilaterally. No wheezes, rales, or rhonchi. CARDIAC: Tachycardic. Normal S1 and S2, without murmurs, gallops, or rubs. VASCULAR: No Edema. Peripheral pulses normal and equal in all extremities. ABDOMEN: Normal and soft with no tenderness, no masses or pulsatile masses. No organomegaly. Positive bowel sounds x4. No CVA tenderness noted bilaterally. GASTROINTESTINAL: Bowel sounds normal LYMPATHTIC: No lymphadenopathy noted. MUSCULOSKELETAL: Good range of motion of all major joints. Extremities without clubbing, cyanosis or edema. NEUROLOGICAL: Alert and oriented x 3. No focal sensory or strength deficits. Speech normal. Follows commands appropriately. PSYCHIATRIC: Normal Affect, judgement and mood. SKIN: Normal appearance with no rashes or lesions. Course - Re-evaluation Re-evalutation: 06/09/20 21:40 Patient with positive urinalysis for UTI. IV fluids, labs are still pending. P atient requesting pain medication. States she has a ride. P[place] was added. Will await labs and IV fluids and reevaluate. 06/09/20 22:13 After 3 attempts the nurses are unable to start an IV. Will have lab draw for labs. DC'd IV and IV fluids and IV Rocephin. Will give IM Rocephin labs pending 06/09/20 22:30 Patient is resting comfortably she is pain-free at this time. Lab was unable to get blood. Patient refusing any additional sticks for blood. Patient is afebrile, nontoxic-appearing, tolerates p.o. fluids. Has no indication for pyelonephritis. Will treat for UTI with p.o. Keflex, patient also given a prescription for Pyridium. She was counseled on the importance of following up with her primary care physician in 2 days for repeat urinalysis. Patient was given strict return to the emergency room guidelines. Return for any new or worsening symptoms. All questions were answered. Patient verbalized understanding and agrees with plan of care. 06/09/20 22:32 - Vital Signs Vital signs: Temp Pulse Resp BP Pulse Ox 98.2 F 109 H 16 126/77 H 100 06/09/20 17:57 06/09/20 17:57 06/09/20 17:57 06/09/20 17:57 06/09/20 17:57 - Laboratory Laboratory results interpreted by me: 06/09/20 18:24 Urine Protein >=500 H Urine Blood MODERATE H Urine Nitrite POSITIVE H Urine Bilirubin SMALL H Urine Urobilinogen 2.0 H Ur Leukocyte Esterase MODERATE H Discharge - Discharge Clinical Impression: UTI (urinary tract infection) Qualifiers: Urinary tract infection type: site unspecified Hematuria presence: with hematuria Qualified Code(s): N39.0 - Urinary tract infection, site not specified; R31.9 - Hematuria, unspecified Condition: Stable Disposition: HOME, SELF-CARE Instructions: Urinary Tract Infection, Child ([facility]), Cephalexin ([facility]) Additional Instructions: Push fluids, Keflex as prescribed. Pyridium as prescribed. Recheck with your primary care physician in 2 days for repeat urinalysis. Return to the emergency room for any new or worsening symptoms. Prescriptions: Cephalexin Monohydrate [Keflex 500 mg Capsule] 500 mg PO BID 7 Days #14 capsule Phenazopyridine HCl [Pyridium 200 mg Tablet] 200 mg PO TID #6 tablet Referrals: CARMEN MATSON MD [Primary Care Provider] - Follow up tomorrow (Call tomorrow for follow-up appointment in 2 days to recheck your urine)
[2020-06-09] MEDS ORDERED: CEFTRIAXONE INJ 1000 MG VIAL IM ONE (22:13)
[2020-06-09] MEDS ORDERED: LIDOCAINE 1% INJ-PF (10 MG/ML) 30 ML SDV NEB ONE (22:13)
== END 2020-06-09 22:51 | disposition home or self-care (01) ==
LOC: ER 17:54
DX: N39.0 Urinary tract infection, site not specified (principal); R31.9 Hematuria, unspecified; R11.10 Vomiting, unspecified; I10 Essential (primary) hypertension
CPT/HCPCS: 99284; 96372; 87086; 87088; 81001; J3490 ×4; J0696; 87186

== ENCOUNTER 2020-08-11 11:49 | Emergency (ER) | payer MEDICAID ==
--- NOTE | 2020-08-11 12:29 | ER Document Report ---
ED Medical Screen (RME) - General Chief Complaint: Anxiety Stated Complaint: ANXIOUS Time Seen by Provider: 08/11/20 12:25 Primary Care Provider: CARMEN MATSON MD [Primary Care Provider] - Follow up as needed Mode of Arrival: Ambulatory Information source: Patient Notes: 34-year-old female presents to ED for withdrawal from Klonopin. Patient states she feels like she is having withdrawal symptoms. She ran out of her Klonopin 2 days ago. She wants Valium 10 mg today. She states she can get a new prescription tomorrow. I have instructed her that she will need to talk with one of the doctors in the back in order to get Valium 10 mg today. She states she usually takes her Klonopin as ordered but she went up 2 days ago. She states she is not using more than she is supposed to but she ran out. I have greeted and performed a rapid initial assessment of this patient. A comprehensive ED assessment and evaluation of the patient, analysis of test results and completion of medical decision making process will be conducted by an additional ED providers. TRAVEL OUTSIDE OF THE [place] IN LAST 30 DAYS: No - Related Data Allergies/Adverse Reactions: ketorolac tromethamine [From Toradol] Allergy (Verified 04/29/20 11:44) meperidine HCl [From Demerol] Allergy (Verified 04/29/20 11:44) metoclopramide HCl [From Reglan] Allergy (Verified 04/29/20 11:44) morphine [Morphine] Allergy (Verified 04/29/20 11:44) nalbuphine [From Nubain] Allergy (Verified 04/29/20 11:44) Hives prochlorperazine [From Compazine] Allergy (Verified 04/29/20 11:44) Hives tramadol [Tramadol] Allergy (Verified 04/29/20 11:44) Hives lamotrigine [From Lamictal] Adverse Reaction (Verified 04/29/20 11:44) Hives ondansetron HCl [From Zofran] Adverse Reaction (Verified 04/29/20 11:44) VOMITING Past Medical History - Social History Family history: None - Past Medical History Cardiac Medical History: Reports: Hx Hypertension Neurological Medical History: Reports: Hx Migraine Renal/ Medical History: Denies: Hx Peritoneal Dialysis Musculoskeltal Medical History: Reports Hx Musculoskeletal Trauma Psychiatric Medical History: Reports: Hx Anxiety, Hx Attention Deficit Hyperactivity Disorder, Hx Bipolar Disorder - Bipolar 1, Hx Depression, Hx Post Traumatic Stress Disorder Traumatic Medical History: Reports: Hx Fractures - nose Past Surgical History: Reports: Hx Abdominal Surgery - LAPROSCOPY, Hx Section - x1, Hx Dilation and Curettage, Hx Gynecologic Surgery - lap for endometriosis, Hx Nose Surgery - Reconstruction for fracture, Other - facial reconstruction - Immunizations Immunizations up to date: Yes Hx Diphtheria, Pertussis, Tetanus Vaccination: Yes - 2010 Physical Exam - Vital signs Vitals: Temp Pulse Resp BP Pulse Ox 98.4 F 108 H 16 129/81 H 99 08/11/20 00:11 08/11/20 00:11 08/11/20 00:11 08/11/20 00:11 08/11/20 00:11 Course - Vital Signs Vital signs: Temp Pulse Resp BP Pulse Ox 98.4 F 108 H 16 129/81 H 99 08/11/20 00:11 08/11/20 00:11 08/11/20 00:11 08/11/20 00:11 08/11/20 00:11 Doctor's Discharge - Discharge Referrals: CARMEN MATSON MD [Primary Care Provider] - Follow up as needed
[2020-08-11 12:56] LABS: ABSOLUTE EOSINOPHILS # (AUTO) 0.3 10^3/uL (0.0-0.6); ABSOLUTE LYMPHOCYTES (AUTO) 1.2 10^3/uL (0.5-4.7); ABSOLUTE MONOCYTES (AUTO) 0.3 10^3/uL (0.1-1.4); ABSOLUTE NEUT (AUTO) 3.1 10^3/uL (1.7-8.2); BASOPHILS % (AUTO) 0.4 % (0-2); EOSINOPHILS % (AUTO) 5.5 % (0-6); HEMATOCRIT 37.5 % (36.0-47.0); HEMOGLOBIN 12.2 g/dL (12.0-15.5); LYMPHOCYTES % (AUTO) 24.2 % (13-45); MEAN CORPUSCULAR HEMOGLOBIN 28.5 pg (27.0-33.4); MEAN CORPUSCULAR HGB CONC 32.6 g/dL (32.0-36.0); MEAN CORPUSCULAR VOLUME 87 fl (80-97); PLATELET COUNT 213 10^3/uL (150-450); RED BLOOD COUNT 4.29 10^6/uL (3.72-5.28); RED CELL DISTRIBUTION WIDTH 13.5 % (11.5-14.0); SEGMENTED NEUTROPHILS % (AUTO) 62.9 % (42-78); TOTAL CELLS COUNTED % (AUTO) 100 %
[2020-08-11 13:13] LABS: AMORPHOUS SEDIMENT,URINE TRACE /HPF; APPEARANCE,URINE SLIGHTLY-CLOUDY; BILIRUBIN,URINE NEGATIVE (NEGATIVE); COLOR,URINE YELLOW; GLUCOSE, URINE NEGATIVE (NEGATIVE); KETONES,URINE NEGATIVE (NEGATIVE); LEUKOCYTE ESTERASE,URINE SMALL (NEGATIVE); NITRITE,URINE NEGATIVE (NEGATIVE); PROTEIN,URINE 30 mg/dL (NEGATIVE); URINE SPECIFIC GRAVITY 1.008; UROBILINOGEN,URINE NEGATIVE mg/dL (<2.0)
[2020-08-11 13:22] LABS: ALBUMIN 4.7 g/dL (3.5-5.0); ALKALINE PHOSPHATASE 94 U/L (38-126); ANION GAP 14 (5-19); ASPARTATE AMINO TRANSFERASE 37 U/L (14-36); BILIRUBIN,DIRECT 0.3 mg/dL (0.0-0.4); BILIRUBIN,TOTAL 0.5 mg/dL (0.2-1.3); BLOOD UREA NITROGEN 12 mg/dL (7-20); CALCIUM 9.7 mg/dL (8.4-10.2); CARBON DIOXIDE 18 mmol/L (22-30); CHLORIDE 106 mmol/L (98-107); GLUCOSE 110 mg/dL (75-110); POTASSIUM 5.1 mmol/L (3.6-5.0); TOTAL PROTEIN 8.3 g/dL (6.3-8.2)
--- NOTE | 2020-08-11 13:50 | ER Document Report ---
ED General - General Chief Complaint: Anxiety Stated Complaint: ANXIOUS Time Seen by Provider: 08/11/20 12:25 Primary Care Provider: CARMEN MATSON MD [Primary Care Provider] - Follow up as needed Mode of Arrival: Ambulatory Information source: Patient Notes: This 34-year-old female presents to the emergency department with a history of the severe anxiety presenting with episode of anxiety and out of her Klonopin. Patient states that she will be able to get the prescription from the pharmacy tomorrow. She is hoping to get a dose of medication to help calm things down. Reviewing her records she has had multiple emergency department visits in the past with similar lapses in her Klonopin treatment. TRAVEL OUTSIDE OF THE [place] IN LAST 30 DAYS: No - Related Data Allergies/Adverse Reactions: ketorolac tromethamine [From Toradol] Allergy (Verified 04/29/20 11:44) meperidine HCl [From Demerol] Allergy (Verified 04/29/20 11:44) metoclopramide HCl [From Reglan] Allergy (Verified 04/29/20 11:44) morphine [Morphine] Allergy (Verified 04/29/20 11:44) nalbuphine [From Nubain] Allergy (Verified 04/29/20 11:44) Hives prochlorperazine [From Compazine] Allergy (Verified 04/29/20 11:44) Hives tramadol [Tramadol] Allergy (Verified 04/29/20 11:44) Hives lamotrigine [From Lamictal] Adverse Reaction (Verified 04/29/20 11:44) Hives ondansetron HCl [From Zofran] Adverse Reaction (Verified 04/29/20 11:44) VOMITING Past Medical History - General Information source: Patient - Social History Smoking Status: Unknown if Ever Smoked Family History: Reviewed & Not Pertinent, Arthritis, DM, Hyperlipidemia, Hypertension - Past Medical History Cardiac Medical History: Reports: Hx Hypertension Neurological Medical History: Reports: Hx Migraine Renal/ Medical History: Denies: Hx Peritoneal Dialysis Musculoskeletal Medical History: Reports Hx Musculoskeletal Trauma Psychiatric Medical History: Reports: Hx Anxiety, Hx Attention Deficit Hyperactivity Disorder, Hx Bipolar Disorder - Bipolar 1, Hx Depression, Hx Post Traumatic Stress Disorder Traumatic Medical History: Reports: Hx Fractures - nose Past Surgical History: Reports: Hx Abdominal Surgery - LAPROSCOPY, Hx Section - x1, Hx Dilation and Curettage, Hx Gynecologic Surgery - lap for endometriosis, Hx Nose Surgery - Reconstruction for fracture, Other - facial reconstruction - Immunizations Immunizations up to date: Yes Hx Diphtheria, Pertussis, Tetanus Vaccination: Yes - 2010 Review of Systems - Review of Systems Notes: Constitutional: Negative for fever. HENT: Negative for sore throat. Eyes: Negative for visual changes. Cardiovascular: Negative for chest pain. Respiratory: Negative for shortness of breath. Gastrointestinal: Negative for abdominal pain, vomiting or diarrhea. Genitourinary: Negative for dysuria. Musculoskeletal: Negative for back pain. Skin: Negative for rash. Neurological: See HPI 10 point ROS negative except as marked above and in HPI. Physical Exam - Vital signs Vitals: Temp Pulse Resp BP Pulse Ox 98.4 F 108 H 16 129/81 H 99 08/11/20 00:11 08/11/20 00:11 08/11/20 00:11 08/11/20 00:11 08/11/20 00:11 - Notes Notes: PHYSICAL EXAMINATION: Physical Exam: General: Well-nourished well-developed anxious 34-year-old woman in no acute distress HEENT: NC/AT, pupils equal round and reactive to light, MM moist,nares clear, oropharynx clear, airway patent Neck: supple, no adenopathy, no masses. Good range of motion Lungs: clear, no wheezing, no rales no rhonchi CVS: Regular rate and rhythm no murmur gallop or rub Abdomen: Soft, active, nontender, no masses, no hepatosplenomegaly Ext: No edema, clubbing or cyanosis. Neuro: Alert and responsive, moving all 4 extremities on command, cranial nerves intact, no focal findings Skin: Intact no open lesions, no rash PSYCH: + Anxiety Course - Re-evaluation Re-evalutation: 08/11/20 14:40 Patient was given a 5 mg dose of diazepam, I have asked her to go home and rest and to pick her prescription of Klonopin up at the pharmacy in the a.m. She is also given some relaxation breathing techniques to practice. - Vital Signs Vital signs: Temp Pulse Resp BP Pulse Ox 99.0 F 102 H 18 128/76 H 100 08/11/20 15:02 08/11/20 15:02 08/11/20 15:02 08/11/20 15:02 08/11/20 15:02 - Laboratory Results Result Diagrams: 08/11/20 12:44 08/11/20 12:44 Laboratory Results Interpreted: 08/11/20 08/11/20 12:44 12:44 Potassium 5.1 H Carbon Dioxide 18 L AST 37 H ALT 39 H Total Protein 8.3 H Urine Protein 30 H Urine Blood LARGE H Ur Leukocyte Esterase SMALL H Critical Laboratory Results Reviewed: No Critical Results - Radiology Results Critical Radiology Results Reviewed: No Critical Results Discharge - Discharge Clinical Impression: Episode of anxiety Condition: Good Disposition: HOME, SELF-CARE Instructions: Anxiety ([facility]) Additional Instructions: Please get your prescription for Klonopin from the pharmacy and take the medication as prescribed. Monitor your medicines closely so that you do not run out before your next prescription. Follow-up with your prescribing doctor HOME CARE INSTRUCTIONS & INFORMATION: Thank you for choosing us for your medical needs. We hope you're satisfied with the care you received. After you leave, you must properly care for your problem and, at the same time, observe its progress. Any condition can change. Some illnesses can change rapidly over hours or days. If your condition worsens, return to the Emergency Department or see your physician promptly. ABOUT YOUR X-RAYS AND EKG'S: If you had an EKG or X-rays taken, they have been read by the Emergency Physician. The X-rays and EKG's will also be read by a Radiologist or Business Writer within 24 hours. If discrepancies are noted, you will be notified by telephone. Please be certain the ED has a correct telephone number & address where you can be reached. Also, realize that some fractures or abnormalities do not show up on initial X-rays. If your symptoms continue, see your physician. ABOUT YOUR LABORATORY TEST: If you had laboratory tests, the results have been reviewed by the Emergency Physician. Some test results (for example cultures) may not be available for several days. You will be contacted if any test result shows you need additional treatment. Please be certain the ED has a correct telephone number and address where you can be reached. ABOUT YOUR MEDICATIONS: You will receive instructions on how to take your medicine on the prescription label you receive. Additional information may be provided by the Pharmacy. If you have questions afterwards, call the ED for clarification or further instructions. Some prescribed medications may cause drowsiness. Do not perform tasks such as driving a car or operating machinery without consulting your Pharmacist. If you feel you need a refill of pain medication, your condition will need re-evaluation. Please do not call for a refill of any medication. ABOUT YOUR SIGNATURE: Signature of this document acknowledges to followin. Understanding that you received emergency treatment and that you may be released before al medical problems are known or treated. Please be certain the ED has a correct phone number & address where you can be reached. 2. Acknowledgement that you will arrange for follow-up care as recommended. 3. Authorization for the Emergency Physician to provide information to your follow-up Physician in order to maximize your care. AT ANY TIME, IF YOUR SYMPTOMS CHANGE SIGNIFICANTLY OR WORSEN OR YOU DEVELOP NEW SYMPTOMS, RETURN TO THE EMERGENCY DEPARTMENT IMMEDIATELY FOR RE-EVALUATION. OUR GOAL IS TO PROVIDE EXCELLENT MEDICAL CARE! WE HOPE THAT WE HAVE MET YOUR EXPECTATIONS DURING YOUR EMERGENCY DEPARTMENT VISIT AND THAT YOU FEEL YOU HAVE RECEIVED EXCELLENT CARE! Referrals: CARMEN MATSON MD [Primary Care Provider] - Follow up as needed
[2020-08-11] MEDS ORDERED: DIAZEPAM 5 MG TABLET PO ONE ×2 (13:56→15:09)
[2020-08-11 15:04] VITALS: BP 128/76
== END 2020-08-11 15:20 | disposition home or self-care (01) ==
LOC: ER 11:49
DX: F41.9 Anxiety disorder, unspecified (principal); I10 Essential (primary) hypertension
CPT/HCPCS: 99283; 36415; 87086; 84703; 85025; 80053; 81001; J3490

== ENCOUNTER 2020-09-10 16:18 | Emergency (ER) | payer MEDICAID, OTHER ==
[2020-09-10 17:01] VITALS: BP 164/91
[2020-09-10] MEDS ORDERED: PROMETHAZINE HCL INJ 25 MG/1 ML VIAL IM ONE (17:46)
[2020-09-10] MEDS ORDERED: NORMAL SALINE 1000 ML 2,000 ML IV ONE (17:48)
--- NOTE | 2020-09-10 17:48 | ER Document Report ---
ED Medical Screen (RME) - General Chief Complaint: Abdominal Pain Stated Complaint: ABDOMINAL PAIN, PAIN AT INSISION SITE Time Seen by Provider: 09/10/20 17:37 Primary Care Provider: CARMEN MATSON MD [Primary Care Provider] - Follow up as needed Mode of Arrival: Ambulatory TRAVEL OUTSIDE OF THE [place] IN LAST 30 DAYS: No - HPI Patient complains to provider of: Abdominal pain Notes: 09/10/20 17:47 Patient here with complaints of abdominal pain. Patient states she has had abdominal bloating and pain since she had a baby via last year. She is now complaining of some right lower abdominal pain. No fevers. No dysuria or hematuria. She is on Depo. Exam: No distress, nontoxic appearing. Lungs clear and equal throughout. Heart sounds normal. Right lower quadrant abdominal tenderness on limited triage abdominal exam. An initial examination was made on the patient as part of the triage process, and it was determined a more comprehensive evaluation was necessary. Initial orders were placed and patient was transferred to another provider in the ED who assumed care and finished evaluation and plan. - Related Data Allergies/Adverse Reactions: ketorolac tromethamine [From Toradol] Allergy (Verified 04/29/20 11:44) meperidine HCl [From Demerol] Allergy (Verified 04/29/20 11:44) metoclopramide HCl [From Reglan] Allergy (Verified 04/29/20 11:44) morphine [Morphine] Allergy (Verified 04/29/20 11:44) nalbuphine [From Nubain] Allergy (Verified 04/29/20 11:44) Hives prochlorperazine [From Compazine] Allergy (Verified 04/29/20 11:44) Hives tramadol [Tramadol] Allergy (Verified 04/29/20 11:44) Hives lamotrigine [From Lamictal] Adverse Reaction (Verified 04/29/20 11:44) Hives ondansetron HCl [From Zofran] Adverse Reaction (Verified 04/29/20 11:44) VOMITING Past Medical History - Social History Family history: None - Past Medical History Cardiac Medical History: Reports: Hx Hypertension Neurological Medical History: Reports: Hx Migraine Renal/ Medical History: Denies: Hx Peritoneal Dialysis Musculoskeltal Medical History: Reports Hx Musculoskeletal Trauma Psychiatric Medical History: Reports: Hx Anxiety, Hx Attention Deficit Hyperactivity Disorder, Hx Bipolar Disorder - Bipolar 1, Hx Depression, Hx Post Traumatic Stress Disorder Traumatic Medical History: Reports: Hx Fractures - nose Past Surgical History: Reports: Hx Abdominal Surgery - LAPROSCOPY, Hx Section - x1, Hx Dilation and Curettage, Hx Gynecologic Surgery - lap for endometriosis, Hx Nose Surgery - Reconstruction for fracture, Other - facial reconstruction - Immunizations Immunizations up to date: Yes Hx Diphtheria, Pertussis, Tetanus Vaccination: Yes - 2010 Physical Exam - Vital signs Vitals: Temp Pulse Resp BP Pulse Ox 98.2 F 116 H 16 164/91 H 100 09/10/20 16:59 09/10/20 16:59 09/10/20 16:59 09/10/20 16:59 09/10/20 16:59 Course - Vital Signs Vital signs: Temp Pulse Resp BP Pulse Ox 98.2 F 116 H 16 164/91 H 100 09/10/20 16:59 09/10/20 16:59 09/10/20 16:59 09/10/20 16:59 09/10/20 16:59 Doctor's Discharge - Discharge Referrals: CARMEN MATSON MD [Primary Care Provider] - Follow up as needed
--- OUTSIDE RECORDS SUMMARY | 2020-09-10 18:12 | XMS REPORT ---
:1985 Author Organization [facility] Address [facility] [place] [address] [place] [id number] Care Team Providers Name Role Phone PCP, INFORMATION UNAVAILABLE Primary Care Physician Unavaila ble Allergies, Adverse Reactions, Alerts Allergy Name Allergy Status Severity Reaction(s) Onset Inactive Treat ing Comments Type Date Date Clinician MORPHINE Drug Active Unknown 2020-04 allergy - 00:00:0 0 LAMOTRIGINE Drug Active Unknown 2020-04 allergy - 00:00:0 0 Medications Ordered Filled Start Stop Current Ordering Indication Dosage Frequency Signature Comments Components Medication Medication Date Date Medication? Clinician (SIG) Name Name Adderall XR 2019-0 Yes 20MG one caps 20 MG Oral 6-05 daily in CAPSULE 00:00: the am EXTENDED 00 RELEASE 24 HOUR KlonoPIN 1 2019-0 Yes 1MG one tab MG Oral 6-05 Twice a TABLET 00:00: day 00 Adderall XR 2019-0 Yes 20MG one caps 20 MG Oral 5-06 daily in CAPSULE 00:00: the am EXTENDED 00 RELEASE 24 HOUR Ambien 10 2019-0 Yes 10MG one tab po MG Oral 5-06 qhs prn TABLET 00:00: for sleep 00 KlonoPIN 1 2019-0 Yes 1MG one tab MG Oral 5-06 Twice a TABLET 00:00: day 00 Ambien 10 2019-0 Yes 10MG one tab po MG Oral 4-08 qhs prn TABLET 00:00: for sleep 00 KlonoPIN 1 2019-0 Yes 1MG one tab MG Oral 4-03 Twice a TABLET 00:00: day 00 Adderall XR 2019-0 Yes 20MG one caps 20 MG Oral 4-03 daily in CAPSULE 00:00: the am EXTENDED 00 RELEASE 24 HOUR Adderall XR 2019-0 Yes 20MG one caps 20 MG Oral 3-04 daily in CAPSULE 00:00: the am EXTENDED 00 RELEASE 24 HOUR KlonoPIN 1 2019-0 Yes 1MG one tab MG Oral 3-04 Twice a TABLET 00:00: day 00 Adderall XR 2019-0 Yes 10MG one caps 10 MG Oral 2-12 in the am CAPSULE 00:00: and one EXTENDED 00 after 2pm RELEASE 24 HOUR Adderall XR 2019-0 No 20MG one caps 20 MG Oral 2-12 daily in CAPSULE 00:00: the am EXTENDED 00 RELEASE 24 HOUR KlonoPIN 2019-0 Yes .5MG one tab 0.5 MG Oral 2-12 Twice a TABLET 00:00: day 00 Adderall XR 2019-0 Yes 20MG one caps 20 MG Oral 1-17 daily in CAPSULE 00:00: the am EXTENDED 00 RELEASE 24 HOUR Adderall XR 2019-0 Yes 20MG one caps 20 MG Oral 1-16 daily in CAPSULE 00:00: the am EXTENDED 00 RELEASE 24 HOUR Ambien 10 2019-0 Yes 10MG one tab po MG Oral 1-16 qhs prn TABLET 00:00: for sleep 00 KlonoPIN 1 2019-0 Yes 1MG one tab MG Oral 1-16 Twice a TABLET 00:00: day 00 Latuda 20 2019-0 Yes 20MG one tab po MG Oral 1-16 q day with TABLET 00:00: food 00 KlonoPIN 1 2018-1 Yes 1MG one tab MG Oral 2-19 Twice a TABLET 00:00: day 00 CloNIDine 2018-1 Yes .1MG one tab po HCl 0.1 MG 2-19 qhs Oral TABLET 00:00: 00 Adderall XR 2018-1 Yes 20MG one caps 20 MG Oral 2-19 daily in CAPSULE 00:00: the am EXTENDED 00 RELEASE 24 HOUR Ambien 10 2017-1 Yes 10MG one tab po MG Oral 2-19 qhs prn TABLET 00:00: for sleep 00 Lisinopril 2018-1 Yes 20MG one tab 20 MG Oral 2-19 daily TABLET 00:00: 00 Latuda 20 2018-1 Yes 20MG one tab po MG Oral 2-19 q day with TABLET 00:00: food 00 Ambien 10 2017-1 No 10MG TAKE 1 PO MG Oral 1-19 QHS PRN TABLET 00:00: SLEEP 00 KlonoPIN 1 2018-1 No 1MG TAKE 1 PO MG Oral 1-19 Twice a TABLET 00:00: day PRN 00 ANXIETY Adderall XR 2018-1 No 20MG TAKE 1 PO 20 MG Oral 1-19 In the CAPSULE 00:00: morning EXTENDED 00 RELEASE 24 HOUR Adderall XR 2018-1 No 20MG TAKE 1 PO 20 MG Oral 0-16 In the CAPSULE 00:00: morning EXTENDED 00 RELEASE 24 HOUR Ambien 10 2018-1 No 10MG TAKE 1 PO MG Oral 0-16 QHS PRN TABLET 00:00: SLEEP 00 KlonoPIN 1 2018-1 No 1MG TAKE 1 PO MG Oral 0-16 Twice a TABLET 00:00: day PRN 00 ANXIETY Adderall XR 2018-0 No 30MG TAKE 1 PO 30 MG Oral 9-19 In the CAPSULE 00:00: morning EXTENDED 00 RELEASE 24 HOUR Ambien 10 2018-0 No 10MG TAKE 1 PO MG Oral 9-19 QHS PRN TABLET 00:00: SLEEP 00 KlonoPIN 1 2018-0 No 1MG TAKE 1 PO MG Oral 9-19 Twice a TABLET 00:00: day PRN 00 ANXIETY Adderall XR 2018-0 No 20MG TAKE 1 PO 20 MG Oral 9-11 In the CAPSULE 00:00: morning EXTENDED 00 RELEASE 24 HOUR Latuda 20 2018-0 No 20MG TAKE 20MG MG Oral 8-28 WITH 40MG TABLET 00:00: AFTER 00 DINNER (SAMPLES) Adderall XR 2018-0 No 20MG TAKE 1 PO 20 MG Oral 8-23 In the CAPSULE 00:00: morning EXTENDED 00 RELEASE 24 HOUR Ambien 10 2018-0 No 10MG TAKE 1 PO MG Oral 8-23 QHS PRN TABLET 00:00: SLEEP 00 KlonoPIN 1 2018-0 No 1MG TAKE 1 PO MG Oral 8-23 Twice a TABLET 00:00: day PRN 00 ANXIETY Latuda 40 2018-0 No 40MG TAKE 1 PO MG Oral 8-23 AFTER TABLET 00:00: DINNER 00 (SAMPLES) Adderall XR 2018-0 No 20MG TAKE 1 PO 20 MG Oral 7-23 In the CAPSULE 00:00: morning EXTENDED 00 RELEASE 24 HOUR Ambien 10 2018-0 No 10MG TAKE 1 PO MG Oral 7-23 QHS PRN TABLET 00:00: SLEEP 00 KlonoPIN 1 2018-0 No 1MG TAKE 1 PO MG Oral 7-23 Twice a TABLET 00:00: day PRN 00 ANXIETY Latuda 40 2018-0 No 40MG TAKE 1 PO MG Oral 7-23 AFTER TABLET 00:00: DINNER 00 (SAMPLES) Lisinopril 2018-0 No 20MG TAKE 1 PO 20 MG Oral 6-28 In the TABLET 00:00: morning 00 BLOOD PRESSURE Problems Condition Condition Condition Status Onset Resolution Last Treatin g Comments Name Details Category Date Date Treatment Clinician Date Major Concern Active 2019-0 depressive 6-06 disorder, 00:00: single 00 episode, moderate 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, 00:00: unspecified 00 Major Concern Inactive 2019-0 depressive 6-05 disorder, 00:00: single 00 episode, moderate Post-trauma Concern Inactive 2019-0 tic stress 6-05 disorder, 00:00: unspecified 00 Major Concern Inactive 2019-0 depressive 5-06 disorder, 00:00: single 00 episode, moderate Post-trauma Concern Inactive 2019-0 tic stress 5-06 disorder, 00:00: unspecified 00 Major Concern Inactive 2019-0 depressive 4-08 disorder, 00:00: single 00 episode, moderate Post-trauma Concern Inactive 2019-0 tic stress 4-08 disorder, 00:00: unspecified 00 Major Concern Inactive 2019-0 depressive 3-04 disorder, 00:00: single 00 episode, moderate Post-trauma Concern Inactive 2019-0 tic stress 3-04 disorder, 00:00: unspecified 00 Major Concern Inactive 2019-0 depressive 2-12 disorder, 00:00: single 00 episode, moderate Post-trauma Concern Inactive 2019-0 tic stress 2-12 disorder, 00:00: unspecified 00 Major Concern Inactive 2019-0 depressive 1-16 disorder, 00:00: single 00 episode, moderate Post-trauma Concern Inactive 2019-0 tic stress 1-16 disorder, 00:00: unspecified 00 Major Concern Inactive 2018-1 depressive 2-19 disorder, 00:00: single 00 episode, moderate Post-trauma Concern Inactive 2018-1 tic stress 2-19 disorder, 00:00: unspecified 00 Major Concern Inactive 2018-1 depressive 1-19 disorder, 00:00: single 00 episode, moderate Post-trauma Concern Inactive 2018-1 tic stress 1-19 disorder, 00:00: unspecified 00 Major Concern Inactive 2018-1 depressive 0-16 disorder, 00:00: single 00 episode, moderate Post-trauma Concern Inactive 2018-1 tic stress 0-16 disorder, 00:00: unspecified 00 Major Concern Inactive 2018-0 depressive 9-19 disorder, 00:00: single 00 episode, moderate Post-trauma Concern Inactive 2018-0 tic stress 9-19 disorder, 00:00: unspecified 00 Major Concern Inactive 2018-0 depressive 9-11 disorder, 00:00: single 00 episode, moderate Post-trauma Concern Inactive 2018-0 tic stress 9-11 disorder, 00:00: unspecified 00 Major Concern Inactive 2018-0 depressive 8-28 disorder, 00:00: single 00 episode, moderate Post-trauma Concern Inactive 2018-0 tic stress 8-28 disorder, 00:00: unspecified 00 Major Concern Inactive 2018-0 depressive 8-23 disorder, 00:00: single 00 episode, moderate Post-trauma Concern Inactive 2018-0 tic stress 8-23 disorder, 00:00: unspecified 00 Major Concern Inactive 2018-0 depressive 8-14 disorder, 00:00: single 00 episode, moderate Post-trauma Concern Inactive 2018-0 tic stress 8-14 disorder, 00:00: unspecified 00 Procedures This patient has no known procedures. Results Test Description Test Time Test Comments Text Results Atomic Results Result Comments Amphetamine 2019-01-24 23:29:00 Test Item Value Reference Range Comments Amphetamine (test code = 33056-1) Not Detected Ftcygcwulv9291-66-26 23:29:00 Test Item Value Reference Range Comments Gabapentin (test code = 9738-6) Not Detected Snmrkmpq1645-72-10 23:29:00 Test Item Value Reference Range Comments Fentanyl (test code = 39004-5) Not Detected Oueecnkd6606-34-02 23:29:00 Test Item Value Reference Range Comments Tramadol (test code = 61172-3) Not Detected 2-Ymmcnxvtqccxmsm7482-33Crsgmhfbjvkrcpe5030-16-84 23:29:00 Test Item Value Reference Range Comments 7-Aminoclonazepam (test code = 35247-2) Detected Tzpjrkctfzr5162-48-37 23:29:00 Test Item Value Reference Range Comments Nordiazepam (test code = 27193-2) Not Detected Epdyogfk8189-52-54 23:29:00 Test Item Value Reference Range Comments Oxazepam (test code = 37018-6) Not Detected Aameexyhwfuoq2917-40-14 23:29:00 Test Item Value Reference Range Comments Buprenorphine (test code = 3414-0) Not Detected Ethyl Ulocvrdxosk9637-82-83 23:29:00 Test Item Value Reference Range Comments Ethyl Glucuronide (test code = 28776-0) Not Detected Culdjgqur5491-48-04 23:29:00 Test Item Value Reference Range Comments Methadone (test code = 3773-9) Not Detected Nuexqni6404-40-14 23:29:00 Test Item Value Reference Range Comments Codeine (test code = 54303-9) Not Detected gK0649-53-77 23:29:00 Test Item Value Reference Range Comments pH (test code = 85372-7) 7.6 U/L Josehmyoznd5568-18-87 23:29:00 Test Item Value Reference Range Comments Hydrocodone (test code = 59457-2) Not Detected Ybkexrjlekvdw8286-18-06 23:29:00 Test Item Value Reference Range Comments Hydromorphone (test code = 9834-3) Not Detected Hywbegfdb3850-97-49 23:29:00 Test Item Value Reference Range Comments Oxycodone (test code = 89581-8) Not Detected Rtnwdztgtwv6367-90-61 23:29:00 Test Item Value Reference Range Comments Oxymorphone (test code = 39657-3) Not Detected Kjthogtomadhs5184-82-83 23:29:00 Test Item Value Reference Range Comments Phencyclidine (test code = 8234-7) Not Detected Hsuxwdqxrlycvcn4258-92-38 23:29:00 Test Item Value Reference Range Comments Benzoylecgonine (test code = 8187-7) Not Detected Aluknooujig1848-19-09 21:21:00 Test Item Value Reference Range Comments Amphetamine (test code = 46752-8) Detected Fgsltbpchh5865-94-52 21:21:00 Test Item Value Reference Range Comments Gabapentin (test code = 9738-6) Not Detected Abstebgu7388-59-58 21:21:00 Test Item Value Reference Range Comments Fentanyl (test code = 72001-0) Not Detected Wqcqezcx6952-56-15 21:21:00 Test Item Value Reference Range Comments Tramadol (test code = 64578-9) Not Detected 4-Djqmjsphbaxkbrb7448-05Sxcdyodsdjaspch8976-51-70 21:21:00 Test Item Value Reference Range Comments 7-Aminoclonazepam (test code = 17871-9) Detected Ufgjvzwyluo6012-64-82 21:21:00 Test Item Value Reference Range Comments Nordiazepam (test code = 55962-1) Detected Qlmxpytw8144-67-83 21:21:00 Test Item Value Reference Range Comments Oxazepam (test code = 57071-1) Detected Pcgcwdpsslloc2127-18-15 21:21:00 Test Item Value Reference Range Comments Buprenorphine (test code = 3414-0) Not Detected Ethyl Ggpzbffklxt2805-94-91 21:21:00 Test Item Value Reference Range Comments Ethyl Glucuronide (test code = 72616-2) Not Detected Eepmreusu1562-97-21 21:21:00 Test Item Value Reference Range Comments Methadone (test code = 3773-9) Not Detected Fazlmbl7891-06-10 21:21:00 Test Item Value Reference Range Comments Codeine (test code = 47915-5) Not Detected xY6653-05-69 21:21:00 Test Item Value Reference Range Comments pH (test code = 37208-1) 7.2 U/L Ahsegxahwux0992-35-15 21:21:00 Test Item Value Reference Range Comments Hydrocodone (test code = 62663-8) Not Detected Cpsrxsbxxzcur1994-48-08 21:21:00 Test Item Value Reference Range Comments Hydromorphone (test code = 9834-3) Not Detected Shxlnlbin1656-16-91 21:21:00 Test Item Value Reference Range Comments Oxycodone (test code = 10649-1) Not Detected Lkthhpitpvu1071-01-22 21:21:00 Test Item Value Reference Range Comments Oxymorphone (test code = 45094-5) Not Detected Ifadljakjlxhi0460-07-87 21:21:00 Test Item Value Reference Range Comments Phencyclidine (test code = 8234-7) Not Detected Xrhitpxipkvbwkx2684-72-07 21:21:00 Test Item Value Reference Range Comments Benzoylecgonine (test code = 8187-7) Not Detected Bcxboyky2081-74-67 20:52:00 Test Item Value Reference Range Comments Oxazepam (test code = 33339-4) Not Detected Hbzzidlqjlndv6541-99-65 20:52:00 Test Item Value Reference Range Comments Buprenorphine (test code = 3414-0) Not Detected Ethyl Enzzyxmkbqj4739-33-04 20:52:00 Test Item Value Reference Range Comments Ethyl Glucuronide (test code = 65295-1) Not Detected Ofufskjwhpy7503-99-12 20:52:00 Test Item Value Reference Range Comments Amphetamine (test code = 09967-6) Detected Imbxcgjoa4318-59-35 20:52:00 Test Item Value Reference Range Comments Methadone (test code = 3773-9) Not Detected Swzzxle3704-90-94 20:52:00 Test Item Value Reference Range Comments Codeine (test code = 28415-6) Not Detected lZ0146-17-11 20:52:00 Test Item Value Reference Range Comments pH (test code = 09952-6) 6.5 U/L Ujozgpwxyxh9103-75-50 20:52:00 Test Item Value Reference Range Comments Hydrocodone (test code = 26659-8) Not Detected Ltzvhsbhqotwl7681-43-67 20:52:00 Test Item Value Reference Range Comments Hydromorphone (test code = 9834-3) Not Detected Oduatjprbl4744-70-84 20:52:00 Test Item Value Reference Range Comments Gabapentin (test code = 9738-6) Not Detected Tdcxwtps8404-24-98 20:52:00 Test Item Value Reference Range Comments Fentanyl (test code = 06037-7) Not Detected Qvuraqza5626-35-74 20:52:00 Test Item Value Reference Range Comments Tramadol (test code = 35563-5) Not Detected 9-Evpkhrnpwbkagsk1668-43Uzsrkiizwjqxmwy6122-00-83 20:52:00 Test Item Value Reference Range Comments 7-Aminoclonazepam (test code = 87945-6) Detected Plntrcnultl4236-17-09 20:52:00 Test Item Value Reference Range Comments Nordiazepam (test code = 41349-4) Not Detected Lauukqdmx3368-42-37 20:52:00 Test Item Value Reference Range Comments Oxycodone (test code = 23961-8) Not Detected Pouubyssljb1709-74-29 20:52:00 Test Item Value Reference Range Comments Oxymorphone (test code = 20075-2) Not Detected Kjlphxygcttaf3841-18-01 20:52:00 Test Item Value Reference Range Comments Phencyclidine (test code = 8234-7) Not Detected Phnnyflabepvzlq1859-51-79 20:52:00 Test Item Value Reference Range Comments Benzoylecgonine (test code = 8187-7) Not Detected Bczpsonehho7139-50-66 21:03:00 Test Item Value Reference Range Comments Amphetamine (test code = 99810-5) Not Detected Fqwzgyappb4246-80-04 21:03:00 Test Item Value Reference Range Comments Gabapentin (test code = 9738-6) Not Detected Maxvhydk6177-22-71 21:03:00 Test Item Value Reference Range Comments Fentanyl (test code = 44845-7) Not Detected Ikinkeec0481-32-79 21:03:00 Test Item Value Reference Range Comments Tramadol (test code = 07645-9) Not Detected 6-Ytmnnyhejrnttep8944-01Xudkjhuwczlahtb8669-88-82 21:03:00 Test Item Value Reference Range Comments 7-Aminoclonazepam (test code = 61785-2) Not Detected Fqkfgwkpqob7326-93-66 21:03:00 Test Item Value Reference Range Comments Nordiazepam (test code = 72932-3) Not Detected Blndkwpe2152-58-50 21:03:00 Test Item Value Reference Range Comments Oxazepam (test code = 13797-0) Not Detected Eksyjzewmihxh0881-63-20 21:03:00 Test Item Value Reference Range Comments Buprenorphine (test code = 3414-0) Not Detected Ethyl Btpbdymtxwd8684-24-58 21:03:00 Test Item Value Reference Range Comments Ethyl Glucuronide (test code = 20840-2) Not Detected Zijbljqmu2827-39-23 21:03:00 Test Item Value Reference Range Comments Methadone (test code = 3773-9) Not Detected Vemsbmw9705-66-99 21:03:00 Test Item Value Reference Range Comments Codeine (test code = 47468-4) Not Detected hR0492-60-23 21:03:00 Test Item Value Reference Range Comments pH (test code = 77526-6) 7.1 U/L Ifvtscchhpi5758-85-59 21:03:00 Test Item Value Reference Range Comments Hydrocodone (test code = 70620-9) Not Detected Feqwdcjrqxlmw1994-71-30 21:03:00 Test Item Value Reference Range Comments Hydromorphone (test code = 9834-3) Not Detected Jnhxpuxrt7475-73-38 21:03:00 Test Item Value Reference Range Comments Oxycodone (test code = 01484-1) Not Detected Znrfigygfdd2372-72-27 21:03:00 Test Item Value Reference Range Comments Oxymorphone (test code = 90136-3) Not Detected Wyrphxtxxlfrb6496-47-53 21:03:00 Test Item Value Reference Range Comments Phencyclidine (test code = 8234-7) Not Detected Usdwuiuxmrsizgd3615-38-51 21:03:00 Test Item Value Reference Range Comments Benzoylecgonine (test code = 8187-7) Not Detected Bixejfzcauo8956-59-73 20:58:00 Test Item Value Reference Range Comments Amphetamine (test code = 12898-4) Detected Bnahasscjq0255-57-51 20:58:00 Test Item Value Reference Range Comments Gabapentin (test code = 9738-6) Not Detected Dwmjaupu0340-21-42 20:58:00 Test Item Value Reference Range Comments Fentanyl (test code = 03969-1) Not Detected Isqsroen1069-74-24 20:58:00 Test Item Value Reference Range Comments Tramadol (test code = 18034-4) Not Detected 7-Qbbyztpbvyeedum9853-72Buxnyjyegyagika9454-10-61 20:58:00 Test Item Value Reference Range Comments 7-Aminoclonazepam (test code = 45176-5) Detected Jzsqrhbzmxb6003-12-70 20:58:00 Test Item Value Reference Range Comments Nordiazepam (test code = 58908-3) Not Detected Pxcqytkx4088-19-12 20:58:00 Test Item Value Reference Range Comments Oxazepam (test code = 05231-6) Not Detected Uzjguhfwdloke1047-92-00 20:58:00 Test Item Value Reference Range Comments Buprenorphine (test code = 3414-0) Not Detected Ethyl Rimjgciyeex9184-55-24 20:58:00 Test Item Value Reference Range Comments Ethyl Glucuronide (test code = 07918-2) Not Detected Xkepwqzcn4369-95-97 20:58:00 Test Item Value Reference Range Comments Methadone (test code = 3773-9) Not Detected Uuyavbg6219-64-13 20:58:00 Test Item Value Reference Range Comments Codeine (test code = 13509-6) Not Detected Enimknlm3799-58-94 20:58:00 Test Item Value Reference Range Comments Morphine (test code = 94020-8) Not Detected Qnemdvkmibp1629-80-00 20:58:00 Test Item Value Reference Range Comments Hydrocodone (test code = 91845-2) Not Detected Nfpyfmjrwgszs6556-18-01 20:58:00 Test Item Value Reference Range Comments Hydromorphone (test code = 9834-3) Not Detected Ltxflsxtp1169-46-34 20:58:00 Test Item Value Reference Range Comments Oxycodone (test code = 97400-7) Not Detected Ufmjruueitp0135-80-37 20:58:00 Test Item Value Reference Range Comments Oxymorphone (test code = 41351-9) Not Detected Cqbcunywapdos3773-03-05 20:58:00 Test Item Value Reference Range Comments Phencyclidine (test code = 8234-7) Not Detected Qjrhpyobxqfurzg2021-86-19 20:58:00 Test Item Value Reference Range Comments Benzoylecgonine (test code = 8187-7) Not Detected Heeqjkjmczc3984-85-48 22:02:00 Test Item Value Reference Range Comments Amphetamine (test code = 17669-5) Detected Logrkpadlf3080-34-62 22:02:00 Test Item Value Reference Range Comments Gabapentin (test code = 9738-6) Not Detected Qrvkxuxt5308-30-36 22:02:00 Test Item Value Reference Range Comments Fentanyl (test code = 84538-2) Not Detected Lgvpfpzk0929-06-00 22:02:00 Test Item Value Reference Range Comments Tramadol (test code = 57517-0) Not Detected 4-Epvymtjejnuecbx0791-46Wydvggkbtbtpikd9217-50-70 22:02:00 Test Item Value Reference Range Comments 7-Aminoclonazepam (test code = 79956-3) Detected Fcbmpzallub0225-73-66 22:02:00 Test Item Value Reference Range Comments Nordiazepam (test code = 98324-1) Not Detected Lfzpobyv4816-61-44 22:02:00 Test Item Value Reference Range Comments Oxazepam (test code = 03409-6) Not Detected Snxalefyadumf3856-27-32 22:02:00 Test Item Value Reference Range Comments Buprenorphine (test code = 3414-0) Not Detected Ethyl Lifiodzjruw1059-33-79 22:02:00 Test Item Value Reference Range Comments Ethyl Glucuronide (test code = 96370-8) Not Detected Rojesfxao4538-31-21 22:02:00 Test Item Value Reference Range Comments Methadone (test code = 3773-9) Not Detected Lzqcccm6807-51-50 22:02:00 Test Item Value Reference Range Comments Codeine (test code = 65690-9) Not Detected nA7250-74-53 22:02:00 Test Item Value Reference Range Comments pH (test code = 15647-8) 7.7 U/L Awjgkslrklu5492-48-50 22:02:00 Test Item Value Reference Range Comments Hydrocodone (test code = 85607-9) Not Detected Wkhduhdifkswe0228-26-10 22:02:00 Test Item Value Reference Range Comments Hydromorphone (test code = 9834-3) Not Detected Zeooyvalp2336-71-36 22:02:00 Test Item Value Reference Range Comments Oxycodone (test code = 10870-9) Not Detected Teqtulgpwlu1621-64-99 22:02:00 Test Item Value Reference Range Comments Oxymorphone (test code = 35634-4) Not Detected Ppespemhvzkey4408-36-73 22:02:00 Test Item Value Reference Range Comments Phencyclidine (test code = 8234-7) Not Detected Onsgnyeyssrllyr2813-47-27 22:02:00 Test Item Value Reference Range Comments Benzoylecgonine (test code = 8187-7) Not Detected Xngakohxybf9808-48-09 21:23:00 Test Item Value Reference Range Comments Amphetamine (test code = 59813-9) Detected Jgrayrwfmb4818-02-58 21:23:00 Test Item Value Reference Range Comments Gabapentin (test code = 9738-6) Not Detected Jjxvmzjl5397-23-26 21:23:00 Test Item Value Reference Range Comments Fentanyl (test code = 41735-2) Not Detected Gctabnuj4271-00-39 21:23:00 Test Item Value Reference Range Comments Tramadol (test code = 46657-6) Not Detected 6-Wwfqlwknqhdjykn1466-70Yrywnulbxuetxzg6457-22-86 21:23:00 Test Item Value Reference Range Comments 7-Aminoclonazepam (test code = 39096-1) Detected Mhgtqudawbn8218-46-01 21:23:00 Test Item Value Reference Range Comments Nordiazepam (test code = 67716-6) Not Detected Ceugdscn9693-50-39 21:23:00 Test Item Value Reference Range Comments Oxazepam (test code = 12172-4) Not Detected Nuzlqfnjackpq2161-80-48 21:23:00 Test Item Value Reference Range Comments Buprenorphine (test code = 3414-0) Not Detected Ethyl Ynecapxaoaa4557-70-62 21:23:00 Test Item Value Reference Range Comments Ethyl Glucuronide (test code = 95557-9) Not Detected Drvqjffcm1824-23-85 21:23:00 Test Item Value Reference Range Comments Methadone (test code = 3773-9) Not Detected Xycbetn8242-55-72 21:23:00 Test Item Value Reference Range Comments Codeine (test code = 42731-2) Not Detected qD9620-90-62 21:23:00 Test Item Value Reference Range Comments pH (test code = 25606-6) 8.8 U/L Bejqeprrkfy1142-49-26 21:23:00 Test Item Value Reference Range Comments Hydrocodone (test code = 55057-8) Not Detected Ofrlsatcdgglr0743-83-14 21:23:00 Test Item Value Reference Range Comments Hydromorphone (test code = 9834-3) Not Detected Trlztclzw6066-27-19 21:23:00 Test Item Value Reference Range Comments Oxycodone (test code = 74644-6) Not Detected Czprwyyudud8668-90-42 21:23:00 Test Item Value Reference Range Comments Oxymorphone (test code = 39056-8) Not Detected Rcuzvsbtanapd2915-17-95 21:23:00 Test Item Value Reference Range Comments Phencyclidine (test code = 8234-7) Not Detected Fhcxjkcawcpzitv3888-64-17 21:23:00 Test Item Value Reference Range Comments Benzoylecgonine (test code = 8187-7) Not Detected Eriwzgeknkv4382-43-21 21:00:00 Test Item Value Reference Range Comments Amphetamine (test code = 10969-6) Not Detected Yxkgpowjqi8315-77-64 21:00:00 Test Item Value Reference Range Comments Gabapentin (test code = 9738-6) Not Detected Ugxotowa2749-42-32 21:00:00 Test Item Value Reference Range Comments Fentanyl (test code = 16735-4) Not Detected Mscxfbzk4808-09-70 21:00:00 Test Item Value Reference Range Comments Tramadol (test code = 80228-3) Not Detected 2-Qbyupgwbhwwitaa4321-75Ddalxpnjyweyzyi6747-93-52 21:00:00 Test Item Value Reference Range Comments 7-Aminoclonazepam (test code = 28056-5) Not Detected Isixvycsmdv1626-66-83 21:00:00 Test Item Value Reference Range Comments Nordiazepam (test code = 79565-9) Not Detected Jwzzvvyg6171-09-20 21:00:00 Test Item Value Reference Range Comments Oxazepam (test code = 90765-8) Detected Bedhnpztlkcom6973-52-36 21:00:00 Test Item Value Reference Range Comments Buprenorphine (test code = 3414-0) Not Detected Ethyl Ctwwifvymmj8610-72-28 21:00:00 Test Item Value Reference Range Comments Ethyl Glucuronide (test code = 17100-9) Not Detected Jsmsqofun3675-67-50 21:00:00 Test Item Value Reference Range Comments Methadone (test code = 3773-9) Not Detected Oarhnhe6225-31-77 21:00:00 Test Item Value Reference Range Comments Codeine (test code = 55178-5) Not Detected oJ4054-15-30 21:00:00 Test Item Value Reference Range Comments pH (test code = 95874-5) 8.3 U/L Mrwdfnmdcca7493-88-88 21:00:00 Test Item Value Reference Range Comments Hydrocodone (test code = 10852-9) Not Detected Kneillwlmhrut4811-71-85 21:00:00 Test Item Value Reference Range Comments Hydromorphone (test code = 9834-3) Not Detected Vnnimukut3417-09-27 21:00:00 Test Item Value Reference Range Comments Oxycodone (test code = 30141-4) Not Detected Nkcuwglgdhx1867-03-92 21:00:00 Test Item Value Reference Range Comments Oxymorphone (test code = 53722-7) Not Detected Eatbozmyajwru0254-86-52 21:00:00 Test Item Value Reference Range Comments Phencyclidine (test code = 8234-7) Not Detected Naesflxdzdwadqz0581-56-78 21:00:00 Test Item Value Reference Range Comments Benzoylecgonine (test code = 8187-7) Not Detected Oozxlrgingm3854-86-98 21:16:00 Test Item Value Reference Range Comments Amphetamine (test code = 53704-9) Not Detected Rsippyeofg7494-17-89 21:16:00 Test Item Value Reference Range Comments Gabapentin (test code = 9738-6) Not Detected Tzmnxsdc5578-09-23 21:16:00 Test Item Value Reference Range Comments Fentanyl (test code = 96186-0) Not Detected Mviaeuhz7620-45-39 21:16:00 Test Item Value Reference Range Comments Tramadol (test code = 60516-9) Not Detected 1-Ukmozoeeqjrpyen8502-79Brocnpiixypghxb1371-29-69 21:16:00 Test Item Value Reference Range Comments 7-Aminoclonazepam (test code = 25888-0) Detected Lolkvwibkne9828-32-01 21:16:00 Test Item Value Reference Range Comments Nordiazepam (test code = 72743-3) Not Detected Wnwjxvfv5819-28-64 21:16:00 Test Item Value Reference Range Comments Oxazepam (test code = 92088-4) Detected Aeturwykhogwv9927-17-96 21:16:00 Test Item Value Reference Range Comments Buprenorphine (test code = 3414-0) Not Detected Ethyl Wakitzgthrx1165-19-58 21:16:00 Test Item Value Reference Range Comments Ethyl Glucuronide (test code = 98187-9) Not Detected Galywpfop2156-04-24 21:16:00 Test Item Value Reference Range Comments Methadone (test code = 3773-9) Not Detected Jyopuwk1554-35-55 21:16:00 Test Item Value Reference Range Comments Codeine (test code = 64712-1) Not Detected hG2002-06-85 21:16:00 Test Item Value Reference Range Comments pH (test code = 03419-1) 9.4 U/L Gdgnmpjoern6154-87-55 21:16:00 Test Item Value Reference Range Comments Hydrocodone (test code = 14508-7) Not Detected Sbszywhgfquyo0190-09-77 21:16:00 Test Item Value Reference Range Comments Hydromorphone (test code = 9834-3) Not Detected Iqcijynrg3732-68-52 21:16:00 Test Item Value Reference Range Comments Oxycodone (test code = 54033-8) Not Detected Wdzmzryebdq3647-94-77 21:16:00 Test Item Value Reference Range Comments Oxymorphone (test code = 38761-7) Not Detected Bgpqoxhtcagpw5829-74-69 21:16:00 Test Item Value Reference Range Comments Phencyclidine (test code = 8234-7) Not Detected Wbkcntwhiidmemz6362-35-57 21:16:00 Test Item Value Reference Range Comments Benzoylecgonine (test code = 8187-7) Not Detected Jxslbmlthjk9995-98-11 22:56:00 Test Item Value Reference Range Comments Amphetamine (test code = 58962-0) Not Detected Kbhumqcuss4918-70-68 22:56:00 Test Item Value Reference Range Comments Gabapentin (test code = 9738-6) Not Detected Vjtqmwqg8240-19-90 22:56:00 Test Item Value Reference Range Comments Fentanyl (test code = 75001-8) Not Detected Hjzpqcco2634-06-68 22:56:00 Test Item Value Reference Range Comments Tramadol (test code = 71775-4) Not Detected 9-Djsckxrbiyxqdam9185-61Bcuwwjwawvkqgvp5442-75-32 22:56:00 Test Item Value Reference Range Comments 7-Aminoclonazepam (test code = 41640-1) Detected Pnbnwftrxwu3181-50-15 22:56:00 Test Item Value Reference Range Comments Nordiazepam (test code = 35680-4) Not Detected Nfhewuaa5134-26-66 22:56:00 Test Item Value Reference Range Comments Oxazepam (test code = 30750-1) Not Detected Cunbawgvhyucp4966-64-72 22:56:00 Test Item Value Reference Range Comments Buprenorphine (test code = 3414-0) Not Detected Ethyl Xazwfddauak2624-80-09 22:56:00 Test Item Value Reference Range Comments Ethyl Glucuronide (test code = 37252-8) Not Detected Ynokoserj3517-88-48 22:56:00 Test Item Value Reference Range Comments Methadone (test code = 3773-9) Not Detected Edfscnz8187-21-02 22:56:00 Test Item Value Reference Range Comments Codeine (test code = 70311-6) Not Detected hU4955-04-10 22:56:00 Test Item Value Reference Range Comments pH (test code = 81305-2) 8.2 U/L Asjyvylzhww1466-22-02 22:56:00 Test Item Value Reference Range Comments Hydrocodone (test code = 25020-4) Not Detected Crahjitruaamv5146-08-43 22:56:00 Test Item Value Reference Range Comments Hydromorphone (test code = 9834-3) Not Detected Yxzuesone1359-41-87 22:56:00 Test Item Value Reference Range Comments Oxycodone (test code = 39603-1) Not Detected Bypqqglhkqb4018-54-83 22:56:00 Test Item Value Reference Range Comments Oxymorphone (test code = 86409-8) Not Detected Uwccxjobyciza9054-74-69 22:56:00 Test Item Value Reference Range Comments Phencyclidine (test code = 8234-7) Not Detected Kglujtofifuyrpx8996-30-41 22:56:00 Test Item Value Reference Range Comments Benzoylecgonine (test code = 8187-7) Not Detected Hclhrzvvewg0110-90-35 20:23:00 Test Item Value Reference Range Comments Amphetamine (test code = 21828-1) Not Detected Bcxgbgypew9173-04-68 20:23:00 Test Item Value Reference Range Comments Gabapentin (test code = 9738-6) Not Detected Nxltphdu8957-29-74 20:23:00 Test Item Value Reference Range Comments Fentanyl (test code = 65492-1) Not Detected Iemjbgnp3330-09-38 20:23:00 Test Item Value Reference Range Comments Tramadol (test code = 37618-0) Not Detected 5-Ibhmwuwkwpnxgsp2804-42Mulxwnonhsidtqf1177-32-29 20:23:00 Test Item Value Reference Range Comments 7-Aminoclonazepam (test code = 51304-4) Detected Giipikiuuoe6934-68-70 20:23:00 Test Item Value Reference Range Comments Nordiazepam (test code = 73888-8) Not Detected Kwamwqni7367-50-92 20:23:00 Test Item Value Reference Range Comments Oxazepam (test code = 80107-4) Not Detected Pdmsqfanlovgs3900-42-95 20:23:00 Test Item Value Reference Range Comments Buprenorphine (test code = 3414-0) Not Detected Ethyl Tkkcbilabag6138-83-12 20:23:00 Test Item Value Reference Range Comments Ethyl Glucuronide (test code = 73973-4) Not Detected Vkvuyqvsq7776-83-78 20:23:00 Test Item Value Reference Range Comments Methadone (test code = 3773-9) Not Detected Bcdvxjh2342-11-95 20:23:00 Test Item Value Reference Range Comments Codeine (test code = 81682-8) Not Detected oR8129-38-82 20:23:00 Test Item Value Reference Range Comments pH (test code = 71200-9) 7.5 U/L Fumwkpyeslm1598-08-10 20:23:00 Test Item Value Reference Range Comments Hydrocodone (test code = 15257-1) Not Detected Nnafzixybkmdv7447-01-34 20:23:00 Test Item Value Reference Range Comments Hydromorphone (test code = 9834-3) Not Detected Pwgnvecwv4584-66-05 20:23:00 Test Item Value Reference Range Comments Oxycodone (test code = 15726-3) Not Detected Xkjqxehxnqf7133-27-91 20:23:00 Test Item Value Reference Range Comments Oxymorphone (test code = 57391-7) Not Detected Wbvpzpnhjluge7427-12-76 20:23:00 Test Item Value Reference Range Comments Phencyclidine (test code = 8234-7) Not Detected Ycccffgnkvojdpu6106-31-10 20:23:00 Test Item Value Reference Range Comments Benzoylecgonine (test code = 8187-7) Not Detected URINE CULTURE\S\L5288-29-34 09:58:00 Test Item Value Reference Range Comments MIXED UROGENITAL LUIS (test code = MSF) Yuvjnmnpwqv2676-39-99 19:45:00 Test Item Value Reference Range Comments Amphetamine (test code = 08102-6) Detected Xkknontqzp6973-18-66 19:45:00 Test Item Value Reference Range Comments Gabapentin (test code = 9738-6) Not Detected Sjozhamq0287-53-45 19:45:00 Test Item Value Reference Range Comments Fentanyl (test code = 13472-9) Not Detected Kmgzondi5780-74-50 19:45:00 Test Item Value Reference Range Comments Tramadol (test code = 30190-2) Not Detected 5-Bepibdvkmwdzhkp4921-45Ilwsljjvqrnnrqv1778-47-27 19:45:00 Test Item Value Reference Range Comments 7-Aminoclonazepam (test code = 35552-2) Detected Pafmzykxrcg0887-97-49 19:45:00 Test Item Value Reference Range Comments Nordiazepam (test code = 24713-4) Not Detected Txmscwhc0581-29-95 19:45:00 Test Item Value Reference Range Comments Oxazepam (test code = 77189-4) Not Detected Ufwqvudwzcpmz9118-27-84 19:45:00 Test Item Value Reference Range Comments Buprenorphine (test code = 3414-0) Not Detected Ethyl Bhdxmwnhspq8977-19-56 19:45:00 Test Item Value Reference Range Comments Ethyl Glucuronide (test code = 35752-3) Not Detected Olyektobc2789-97-92 19:45:00 Test Item Value Reference Range Comments Methadone (test code = 3773-9) Not Detected Tievojf4077-40-41 19:45:00 Test Item Value Reference Range Comments Codeine (test code = 01849-3) Not Detected sT8843-44-25 19:45:00 Test Item Value Reference Range Comments pH (test code = 67290-4) 7.7 U/L Exlpmlshefc2480-26-32 19:45:00 Test Item Value Reference Range Comments Hydrocodone (test code = 97268-6) Not Detected Zhfyjamxfomca8315-81-37 19:45:00 Test Item Value Reference Range Comments Hydromorphone (test code = 9834-3) Not Detected Cnhkferpe8281-93-36 19:45:00 Test Item Value Reference Range Comments Oxycodone (test code = 56294-5) Not Detected Wablzaktcac6516-74-71 19:45:00 Test Item Value Reference Range Comments Oxymorphone (test code = 29116-1) Not Detected Tfuvzevtkdaoc1395-80-07 19:45:00 Test Item Value Reference Range Comments Phencyclidine (test code = 8234-7) Not Detected Hhlxwwcwdrfwbwz4974-54-10 19:45:00 Test Item Value Reference Range Comments Benzoylecgonine (test code = 8187-7) Not Detected Uplsaqhiiej4829-13-59 12:29:00 Test Item Value Reference Range Comments Amphetamine (test code = 00706-9) Not Detected Eqzxvlmpan1323-32-91 12:29:00 Test Item Value Reference Range Comments Gabapentin (test code = 9738-6) Detected Imapxakg1005-33-48 12:29:00 Test Item Value Reference Range Comments Fentanyl (test code = 64277-7) Not Detected Kpbehsxw5087-96-98 12:29:00 Test Item Value Reference Range Comments Tramadol (test code = 28977-6) Not Detected 9-Vvzlihcmwgpeqoh3858-71Icwvhnudlzpdcpk6376-95-12 12:29:00 Test Item Value Reference Range Comments 7-Aminoclonazepam (test code = 92679-6) Detected Umgvnfrfzli2664-84-91 12:29:00 Test Item Value Reference Range Comments Nordiazepam (test code = 60090-3) Not Detected Eecvybxw9738-06-27 12:29:00 Test Item Value Reference Range Comments Oxazepam (test code = 67385-3) Not Detected Vlplifgueaeof7832-20-46 12:29:00 Test Item Value Reference Range Comments Buprenorphine (test code = 3414-0) Not Detected Ethyl Ydqpzpmzddk0634-92-32 12:29:00 Test Item Value Reference Range Comments Ethyl Glucuronide (test code = 47862-7) Not Detected Xoscwhvdq2769-29-40 12:29:00 Test Item Value Reference Range Comments Methadone (test code = 3773-9) Not Detected Fmngvqa5294-65-25 12:29:00 Test Item Value Reference Range Comments Codeine (test code = 94573-8) Not Detected Xbdmduec1452-94-92 12:29:00 Test Item Value Reference Range Comments Morphine (test code = 71444-5) Not Detected Ossfwmfxcsq5951-08-35 12:29:00 Test Item Value Reference Range Comments Hydrocodone (test code = 05425-4) Not Detected Azcthbdpvghvp8588-75-14 12:29:00 Test Item Value Reference Range Comments Hydromorphone (test code = 9834-3) Not Detected Uvdhhimhg8672-48-22 12:29:00 Test Item Value Reference Range Comments Oxycodone (test code = 00057-1) Not Detected Gnnkbawpycl7493-26-10 12:29:00 Test Item Value Reference Range Comments Oxymorphone (test code = 53414-6) Detected Asdzjgjwbxtqn6754-12-82 12:29:00 Test Item Value Reference Range Comments Phencyclidine (test code = 8234-7) Not Detected Sysvxxpivxwdily7611-18-32 12:29:00 Test Item Value Reference Range Comments Benzoylecgonine (test code = 8187-7) Not Detected Xgaehvwefjm3142-55-55 20:56:00 Test Item Value Reference Range Comments Amphetamine (test code = 53771-2) Detected Zlsbtdninv8744-47-81 20:56:00 Test Item Value Reference Range Comments Gabapentin (test code = 9738-6) Not Detected Ovdkatei0040-65-44 20:56:00 Test Item Value Reference Range Comments Fentanyl (test code = 62004-8) Not Detected Lkxowgpu7410-54-21 20:56:00 Test Item Value Reference Range Comments Tramadol (test code = 59996-7) Not Detected 3-Xzzipxlsfitowar0289-70Rvaykkgjxatbfqg3618-81-25 20:56:00 Test Item Value Reference Range Comments 7-Aminoclonazepam (test code = 82936-1) Detected Aekxagtzgmn6714-56-81 20:56:00 Test Item Value Reference Range Comments Nordiazepam (test code = 43008-8) Not Detected Bpdljyud4384-30-81 20:56:00 Test Item Value Reference Range Comments Oxazepam (test code = 59031-5) Not Detected Kyqevqhslhgup7888-20-43 20:56:00 Test Item Value Reference Range Comments Buprenorphine (test code = 3414-0) Not Detected Ethyl Gaxraxvcgvo5841-64-67 20:56:00 Test Item Value Reference Range Comments Ethyl Glucuronide (test code = 52205-7) Not Detected Zxxkpmtoz2183-69-42 20:56:00 Test Item Value Reference Range Comments Methadone (test code = 3773-9) Not Detected Ohjohlz7184-97-72 20:56:00 Test Item Value Reference Range Comments Codeine (test code = 83096-3) Not Detected Qxeogtem4386-25-70 20:56:00 Test Item Value Reference Range Comments Morphine (test code = 87779-5) Detected Bioylnbsyex5928-03-93 20:56:00 Test Item Value Reference Range Comments Hydrocodone (test code = 88420-1) Not Detected Fwrequmqrseqq7192-96-66 20:56:00 Test Item Value Reference Range Comments Hydromorphone (test code = 9834-3) Not Detected Ykcqwysfv3618-63-16 20:56:00 Test Item Value Reference Range Comments Oxycodone (test code = 85437-5) Not Detected Dfrkhxttnsq4821-19-10 20:56:00 Test Item Value Reference Range Comments Oxymorphone (test code = 71513-4) Not Detected Bopohbnzrbvpl0577-59-81 20:56:00 Test Item Value Reference Range Comments Phencyclidine (test code = 8234-7) Not Detected Lffbuvcsejvvucy3973-36-91 20:56:00 Test Item Value Reference Range Comments Benzoylecgonine (test code = 8187-7) Not Detected Awtujdfprwt5235-80-00 21:08:00 Test Item Value Reference Range Comments Amphetamine (test code = 77687-0) Not Detected Kelufbsfko9203-45-88 21:08:00 Test Item Value Reference Range Comments Gabapentin (test code = 9738-6) Not Detected Fszgtiny9947-71-72 21:08:00 Test Item Value Reference Range Comments Fentanyl (test code = 26586-0) Not Detected Crgqocay8408-91-02 21:08:00 Test Item Value Reference Range Comments Tramadol (test code = 03868-9) Not Detected 2-Ktuwzfpruzxnvtj5806-50Cpdzbkrgnkxmsaw9607-07-04 21:08:00 Test Item Value Reference Range Comments 7-Aminoclonazepam (test code = 02992-3) Detected Dalrgxktusa9346-72-78 21:08:00 Test Item Value Reference Range Comments Nordiazepam (test code = 04394-6) Not Detected Rwbaauef4560-88-78 21:08:00 Test Item Value Reference Range Comments Oxazepam (test code = 96024-7) Not Detected Ssibazvvcnnmh0703-05-84 21:08:00 Test Item Value Reference Range Comments Buprenorphine (test code = 3414-0) Not Detected Ethyl Rrpbecmhuiv2207-51-33 21:08:00 Test Item Value Reference Range Comments Ethyl Glucuronide (test code = 06488-1) Not Detected Gbzzjnpzm5862-51-82 21:08:00 Test Item Value Reference Range Comments Methadone (test code = 3773-9) Not Detected Wikagdj2358-13-29 21:08:00 Test Item Value Reference Range Comments Codeine (test code = 64252-3) Not Detected Hkedlryd4225-71-26 21:08:00 Test Item Value Reference Range Comments Morphine (test code = 51130-7) Not Detected Tsowufjtotu0300-37-76 21:08:00 Test Item Value Reference Range Comments Hydrocodone (test code = 33646-1) Not Detected Vunymjuszhorx0907-85-21 21:08:00 Test Item Value Reference Range Comments Hydromorphone (test code = 9834-3) Not Detected Lxhcocxzg4440-31-73 21:08:00 Test Item Value Reference Range Comments Oxycodone (test code = 95817-0) Not Detected Ekvizzeuman3603-81-85 21:08:00 Test Item Value Reference Range Comments Oxymorphone (test code = 95697-3) Not Detected Eampiqejjxzkg8775-88-11 21:08:00 Test Item Value Reference Range Comments Phencyclidine (test code = 8234-7) Not Detected Scwqrgtfvaknyjm9470-44-04 21:08:00 Test Item Value Reference Range Comments Benzoylecgonine (test code = 8187-7) Not Detected Kvqoigtnksm7732-27-09 20:43:00 Test Item Value Reference Range Comments Amphetamine (test code = 52763-4) Detected Ulmojdieiv5033-00-07 20:43:00 Test Item Value Reference Range Comments Gabapentin (test code = 9738-6) Not Detected Sogzfnhe0454-82-64 20:43:00 Test Item Value Reference Range Comments Fentanyl (test code = 09395-8) Not Detected Blugwvmg3352-33-81 20:43:00 Test Item Value Reference Range Comments Tramadol (test code = 84667-9) Not Detected 6-Urmztsvqtuvublc8687-09Imbdmmkxdtffoqm4853-34-54 20:43:00 Test Item Value Reference Range Comments 7-Aminoclonazepam (test code = 30261-5) Detected Onatdajxrps6072-16-35 20:43:00 Test Item Value Reference Range Comments Nordiazepam (test code = 88281-5) Not Detected Xurkxlei4977-45-23 20:43:00 Test Item Value Reference Range Comments Oxazepam (test code = 96572-3) Not Detected Rjdcdurlcwpwy5284-77-52 20:43:00 Test Item Value Reference Range Comments Buprenorphine (test code = 3414-0) Not Detected Ethyl Vgmmvqyitpz5169-74-21 20:43:00 Test Item Value Reference Range Comments Ethyl Glucuronide (test code = 01643-6) Not Detected Jdfiwtbxp8143-42-36 20:43:00 Test Item Value Reference Range Comments Methadone (test code = 3773-9) Not Detected Fjviudd9933-42-22 20:43:00 Test Item Value Reference Range Comments Codeine (test code = 48849-4) Not Detected Jcvnrici1637-00-70 20:43:00 Test Item Value Reference Range Comments Morphine (test code = 88015-2) Not Detected Ljknhqnlahg4429-66-42 20:43:00 Test Item Value Reference Range Comments Hydrocodone (test code = 25764-5) Not Detected Gtzxpxhblhdhq0684-20-39 20:43:00 Test Item Value Reference Range Comments Hydromorphone (test code = 9834-3) Not Detected Poqmqjcwf5275-68-32 20:43:00 Test Item Value Reference Range Comments Oxycodone (test code = 37368-5) Not Detected Szzdksllshk3303-19-58 20:43:00 Test Item Value Reference Range Comments Oxymorphone (test code = 01323-4) Not Detected Jrhviwjqdxmki7739-69-43 20:43:00 Test Item Value Reference Range Comments Phencyclidine (test code = 8234-7) Not Detected Jlrtinjdgsrvvmt5560-71-90 20:43:00 Test Item Value Reference Range Comments Benzoylecgonine (test code = 8187-7) Not Detected Ccjmnmheoza1718-77-81 21:12:00 Test Item Value Reference Range Comments Amphetamine (test code = 38440-6) Detected Hygjcnuzjs0964-59-65 21:12:00 Test Item Value Reference Range Comments Gabapentin (test code = 9738-6) Not Detected Heqsgptv4612-26-01 21:12:00 Test Item Value Reference Range Comments Fentanyl (test code = 71633-2) Not Detected Yvyaxqkz9174-45-80 21:12:00 Test Item Value Reference Range Comments Tramadol (test code = 43827-6) Not Detected 9-Slmkkvbpyuwvdyg1602-24Helafnhiolixnmy6218-15-34 21:12:00 Test Item Value Reference Range Comments 7-Aminoclonazepam (test code = 71942-9) Detected Atixrqcobhn3259-65-70 21:12:00 Test Item Value Reference Range Comments Nordiazepam (test code = 82887-7) Not Detected Upfitrad9618-42-11 21:12:00 Test Item Value Reference Range Comments Oxazepam (test code = 52620-2) Detected Qegdvbsqfmnet4304-95-49 21:12:00 Test Item Value Reference Range Comments Buprenorphine (test code = 3414-0) Not Detected Ethyl Prumusjdapb6067-42-30 21:12:00 Test Item Value Reference Range Comments Ethyl Glucuronide (test code = 70926-5) Not Detected Utbqqheli6410-79-86 21:12:00 Test Item Value Reference Range Comments Methadone (test code = 3773-9) Not Detected Yjeuebh8567-93-39 21:12:00 Test Item Value Reference Range Comments Codeine (test code = 60073-0) Not Detected Mlnusvtp9893-59-97 21:12:00 Test Item Value Reference Range Comments Morphine (test code = 65804-2) Not Detected Qasskovuspa5479-68-54 21:12:00 Test Item Value Reference Range Comments Hydrocodone (test code = 70654-5) Not Detected Vxtryqktmspaa7579-09-23 21:12:00 Test Item Value Reference Range Comments Hydromorphone (test code = 9834-3) Not Detected Rvodgqiva0385-04-77 21:12:00 Test Item Value Reference Range Comments Oxycodone (test code = 34234-0) Not Detected Bgldrmbmate1022-90-16 21:12:00 Test Item Value Reference Range Comments Oxymorphone (test code = 87071-0) Not Detected Lbeiwxzcimegq9450-06-04 21:12:00 Test Item Value Reference Range Comments Phencyclidine (test code = 8234-7) Not Detected Xnehiznpybglnai8746-37-42 21:12:00 Test Item Value Reference Range Comments Benzoylecgonine (test code = 8187-7) Not Detected Itzfmuuiaar9620-54-87 22:05:00 Test Item Value Reference Range Comments Amphetamine (test code = 04760-0) Detected Qyohwjnzme1810-07-22 22:05:00 Test Item Value Reference Range Comments Gabapentin (test code = 9738-6) Not Detected Fynoeiui6476-66-36 22:05:00 Test Item Value Reference Range Comments Fentanyl (test code = 23648-7) Not Detected Yuzwrhzd0609-53-34 22:05:00 Test Item Value Reference Range Comments Tramadol (test code = 98220-7) Not Detected 5-Jlvkzudobsuxhbf9566-32Fprqikplfvaltgj8589-67-71 22:05:00 Test Item Value Reference Range Comments 7-Aminoclonazepam (test code = 75800-1) Detected Cxzujvzmkef5671-23-57 22:05:00 Test Item Value Reference Range Comments Nordiazepam (test code = 77736-8) Not Detected Nckhfrua9570-67-17 22:05:00 Test Item Value Reference Range Comments Oxazepam (test code = 29109-0) Not Detected Fjyftxhlyzmba1827-50-00 22:05:00 Test Item Value Reference Range Comments Buprenorphine (test code = 3414-0) Not Detected Ethyl Slxmzgdxxms0423-13-96 22:05:00 Test Item Value Reference Range Comments Ethyl Glucuronide (test code = 53277-9) Not Detected Lnmgjmacc7214-51-46 22:05:00 Test Item Value Reference Range Comments Methadone (test code = 3773-9) Not Detected Tayhhau0318-72-03 22:05:00 Test Item Value Reference Range Comments Codeine (test code = 07684-5) Not Detected Gmkhblcd3894-76-37 22:05:00 Test Item Value Reference Range Comments Morphine (test code = 93738-1) Not Detected Uqlhfwweqwk8869-18-86 22:05:00 Test Item Value Reference Range Comments Hydrocodone (test code = 81468-9) Not Detected Snvociymljodg0725-73-06 22:05:00 Test Item Value Reference Range Comments Hydromorphone (test code = 9834-3) Not Detected Idsgjsbwv7890-63-97 22:05:00 Test Item Value Reference Range Comments Oxycodone (test code = 38376-2) Not Detected Gseyppsjchf0158-06-24 22:05:00 Test Item Value Reference Range Comments Oxymorphone (test code = 51546-8) Not Detected Xamlycwjonecv6497-64-32 22:05:00 Test Item Value Reference Range Comments Phencyclidine (test code = 8234-7) Not Detected Olyirreqfdsdvmn6156-36-95 22:05:00 Test Item Value Reference Range Comments Benzoylecgonine (test code = 8187-7) Not Detected Zwpmpzsmqlj0723-35-51 20:25:00 Test Item Value Reference Range Comments Amphetamine (test code = 78788-7) Not Detected Ajrzjrmpau3704-30-06 20:25:00 Test Item Value Reference Range Comments Gabapentin (test code = 9738-6) Not Detected Yxmilekb7134-16-28 20:25:00 Test Item Value Reference Range Comments Fentanyl (test code = 58943-4) Not Detected Iriiyhbu6678-49-12 20:25:00 Test Item Value Reference Range Comments Tramadol (test code = 81394-0) Not Detected 2-Tyvqoxskrmbmohq4281-29Muyaphjdjswzzlp4774-88-11 20:25:00 Test Item Value Reference Range Comments 7-Aminoclonazepam (test code = 85790-4) Detected Xbdebkaqstp2742-09-24 20:25:00 Test Item Value Reference Range Comments Nordiazepam (test code = 28509-1) Not Detected Aujnyhcj4054-77-17 20:25:00 Test Item Value Reference Range Comments Oxazepam (test code = 59061-0) Not Detected Vyvcfkbwvbiyw5373-24-30 20:25:00 Test Item Value Reference Range Comments Buprenorphine (test code = 3414-0) Not Detected Ethyl Ueuswcqyxvz4209-42-38 20:25:00 Test Item Value Reference Range Comments Ethyl Glucuronide (test code = 93614-9) Not Detected Nktzgbqlr9336-48-31 20:25:00 Test Item Value Reference Range Comments Methadone (test code = 3773-9) Not Detected Nykyviw1452-49-55 20:25:00 Test Item Value Reference Range Comments Codeine (test code = 58823-0) Not Detected Rxyrxftx2191-95-46 20:25:00 Test Item Value Reference Range Comments Morphine (test code = 31660-6) Not Detected Rexfcewnjct8982-76-82 20:25:00 Test Item Value Reference Range Comments Hydrocodone (test code = 21940-9) Not Detected Jhhsvbtxvonqf6761-15-26 20:25:00 Test Item Value Reference Range Comments Hydromorphone (test code = 9834-3) Not Detected Rerhdgvfr1094-29-79 20:25:00 Test Item Value Reference Range Comments Oxycodone (test code = 36430-8) Not Detected Wuaodosxgdv3495-96-19 20:25:00 Test Item Value Reference Range Comments Oxymorphone (test code = 53524-8) Not Detected Jqbwhknablsbv3959-52-27 20:25:00 Test Item Value Reference Range Comments Phencyclidine (test code = 8234-7) Not Detected Trezfkojdfzwcwk4672-73-11 20:25:00 Test Item Value Reference Range Comments Benzoylecgonine (test code = 8187-7) Not Detected Bwwudaiunly7456-90-37 21:43:00 Test Item Value Reference Range Comments Amphetamine (test code = 76181-5) Not Detected Wucpmqugzy0793-34-58 21:43:00 Test Item Value Reference Range Comments Gabapentin (test code = 9738-6) Not Detected Zqpfouvg3500-17-47 21:43:00 Test Item Value Reference Range Comments Fentanyl (test code = 66118-6) Not Detected Krwxyplc4291-95-36 21:43:00 Test Item Value Reference Range Comments Tramadol (test code = 37058-5) Not Detected 0-Jnhsqmfpmexfndq3888-15Heddsbazwkjvmhk5532-41-07 21:43:00 Test Item Value Reference Range Comments 7-Aminoclonazepam (test code = 16014-1) Not Detected Mnanrlngzzq3901-78-44 21:43:00 Test Item Value Reference Range Comments Nordiazepam (test code = 34805-8) Not Detected Ngfecufm8982-20-37 21:43:00 Test Item Value Reference Range Comments Oxazepam (test code = 60990-4) Not Detected Jnvtehdwujuzs0000-19-89 21:43:00 Test Item Value Reference Range Comments Buprenorphine (test code = 3414-0) Not Detected Ethyl Lnshbwqxtph8953-96-45 21:43:00 Test Item Value Reference Range Comments Ethyl Glucuronide (test code = 34211-8) Not Detected Ahvmalmfj2877-88-84 21:43:00 Test Item Value Reference Range Comments Methadone (test code = 3773-9) Not Detected Irqwfis7245-07-48 21:43:00 Test Item Value Reference Range Comments Codeine (test code = 03655-5) Not Detected Lomocjzm0618-13-27 21:43:00 Test Item Value Reference Range Comments Morphine (test code = 66425-1) Not Detected Fsvxlnrqhpd3989-14-83 21:43:00 Test Item Value Reference Range Comments Hydrocodone (test code = 30485-6) Not Detected Kpssqqgwqsqni6120-84-18 21:43:00 Test Item Value Reference Range Comments Hydromorphone (test code = 9834-3) Not Detected Jgkkxvcdf7346-18-44 21:43:00 Test Item Value Reference Range Comments Oxycodone (test code = 67678-1) Not Detected Lcyopyqmhxk7200-37-12 21:43:00 Test Item Value Reference Range Comments Oxymorphone (test code = 63232-3) Not Detected Qsywebleygjnn6504-16-73 21:43:00 Test Item Value Reference Range Comments Phencyclidine (test code = 8234-7) Not Detected Mhbhptfvrickrfm1680-54-93 21:43:00 Test Item Value Reference Range Comments Benzoylecgonine (test code = 8187-7) Not Detected Encounters Start End Encounter Type Admission Attending Care Care Encou nter Date/Time Date/Time Type Clinicians Facility Department ID 2019-10-24 2019-10-24 Outpatient [facility] [id number] 00:00:00 00:00:00 _[id number] 2019-10-09 Outpatient [facility] [id number] 00:00:00 00:00:00 _[id number] 2019-01-25 2019-01-25 Diagnostic [facility] [id number] cdee5-2 00:00:00 00:00:00 Assessment Health Services 044-47b4-8 Services [id number] 4e3dd0 2019-01-24 2019-01-24 Eval & Mgt [facility] acc 3ca82-0 09:15:00 09:45:00 visit for Health Services n09-313n-1 estab pt Services r15-8y1203 detailed 8fd9e7 2018-12-25 2018-12-25 Eval & Mgt [facility] 1cc 9179a-3 09:05:00 09:25:00 visit for Health Services 059-4144-8 estab pt Services 52e-b054a5 detailed 35aeee 2018-11-27 2018-11-27 Eval & Mgt [facility] d54 433dd-1 08:20:00 08:35:00 visit for Health Services 819-4863-b estab pt Services b75-808fp5 detailed 6b5be0 2018-10-23 2018-10-23 Eval & Mgt [facility] c79 r1g8h-7 08:35:00 09:00:00 visit for Health Services p12-1y56-7 estab pt Services 1n2-931zbd detailed 323861 6644-02-12 2018-10-03 Eval & Mgt [facility] ec2 459n7-9 11:05:00 11:25:00 visit for Health Services y0j-00k1-q estab pt Services 068-8cce4b detailed 6f0f51 2018-09-06 2018-09-06 Eval & Mgt [facility] 302 86v56-p 13:25:00 13:50:00 visit for Health Services 5db-4919-9 estab pt Services o1l-2481z1 detailed 51e3e5 2018-08-09 2018-08-09 Eval & Mgt [facility] 910 7y8n3-0 09:00:00 09:30:00 visit estab Health Services e82-1l76 -a pt Services 1f0-8wfy84 comprehensive a77e6f 2018-08-09 2018-08-09 Psychotherapy [facility] 4d9zz352-8 08:15:00 09:00:00 45 Health Services i39-641k-0 Services b31-j39l48 d6b34a 2018-07-10 2018-07-10 Eval & Mgt [facility] 099 17f31-v 16:10:00 16:20:00 visit for Health Services x56-2a86-j estab pt Services k73-[id number] detailed d5ccf6 2018-07-10 2018-07-10 Psychotherapy [facility] rx8nw3p0-8 14:35:00 15:20:00 45 Health Services 744-4004-a Services [id number] ehd360 2018-06-06 2018-06-06 Eval & Mgt [facility] d03 3iq4d-f 16:05:00 16:20:00 visit for new Health Services ca3-4cb e-b pt detailed Services s48-[id number] bcd15d 2018-06-06 2018-06-06 Psychotherapy [facility] 37e231si-7 15:40:00 16:05:00 30 Health Services 77c-4c0c-8 Services 5ab-0058a7 5g011g 2018-05-10 2018-05-10 Eval & Mgt [facility] aaf 14pp5-9 10:30:00 10:50:00 visit for new Health Services 597-4a3 e-a pt detailed Services 9bc-d2e7f5 8b65ba 2018-05-02 2018-05-02 Eval & Mgt [facility] 95b 2u144-t 08:40:00 09:00:00 visit for Health Services 17b-4349-8 estab pt Services [id number]-80305i expanded 37c1e8 2018-04-18 2018-04-18 Eval & Mgt [facility] 84d q10m9-s 10:50:00 11:00:00 visit for Health Services 147-4524-8 estab pt Services [id number]-f16254 73918b 2018-04-13 2018-04-13 Eval & Mgt [facility] 631 ba0ab-r 08:20:00 08:30:00 visit for Health Services 1j3-717j-2 estab pt Services af1-00c73f 41e7d6 2018-04-04 2018-04-04 [facility] r990aa1b-9 14:15:00 14:45:00 30 Health Services h9s-2846-x Services [id number] e01bab Payers Payer Name Policy Type Policy Number Effective Date Expiration D ate [place] [id number] 2019 00:00:00 Social History This patient has no known social history. Vital Signs Vital Name Observation Time Observation Value Comments Height 2019-01-24 09:15:00 67 [in_i] Weight Measured 2019-01-24 09:15:00 142 [lb_av] Heart Rate 2019-01-24 09:15:00 103 /min O2 % BldC Oximetry 2019-01-24 09:15:00 100 % BP Systolic 2019-01-24 09:15:00 147 mm[Hg] BP Diastolic 2019-01-24 09:15:00 79 mm[Hg] Height 2018-12-25 09:05:00 67 [in_i] Weight Measured 2018-12-25 09:05:00 139 [lb_av] Heart Rate 2018-12-25 09:05:00 93 /min BP Systolic 2018-12-25 09:05:00 133 mm[Hg] BP Diastolic 2018-12-25 09:05:00 89 mm[Hg] Height 2018-11-27 08:20:00 67 [in_i] Weight Measured 2018-11-27 08:20:00 130 [lb_av] Heart Rate 2018-11-27 08:20:00 108 /min O2 % BldC Oximetry 2018-11-27 08:20:00 108 % BP Systolic 2018-11-27 08:20:00 121 mm[Hg] BP Diastolic 2018-11-27 08:20:00 81 mm[Hg] Height 2018-10-23 08:35:00 67 [in_i] Weight Measured 2018-10-23 08:35:00 128 [lb_av] Heart Rate 2018-10-23 08:35:00 107 /min BP Systolic 2018-10-23 08:35:00 132 mm[Hg] BP Diastolic 2018-10-23 08:35:00 86 mm[Hg] Height 2018-10-03 11:05:00 67 [in_i] Weight Measured 2018-10-03 11:05:00 123 [lb_av] Heart Rate 2018-10-03 11:05:00 94 /min O2 % BldC Oximetry 2018-10-03 11:05:00 99 % BP Systolic 2018-10-03 11:05:00 124 mm[Hg] BP Diastolic 2018-10-03 11:05:00 73 mm[Hg] Height 2018-09-06 13:25:00 67 [in_i] Weight Measured 2018-09-06 13:25:00 121 [lb_av] Heart Rate 2018-09-06 13:25:00 101 /min O2 % BldC Oximetry 2018-09-06 13:25:00 98 % BP Systolic 2018-09-06 13:25:00 124 mm[Hg] BP Diastolic 2018-09-06 13:25:00 77 mm[Hg] Height 2018-08-09 09:00:00 67 [in_i] Weight Measured 2018-08-09 09:00:00 119 [lb_av] Heart Rate 2018-08-09 09:00:00 88 /min O2 % BldC Oximetry 2018-08-09 09:00:00 96 % BP Systolic 2018-08-09 09:00:00 151 mm[Hg] BP Diastolic 2018-08-09 09:00:00 100 mm[Hg] Height 2018-07-10 16:10:00 67 [in_i] Weight Measured 2018-07-10 16:10:00 126 [lb_av] Heart Rate 2018-07-10 16:10:00 111 /min Respiratory Rate 2018-07-10 16:10:00 14 /min O2 % BldC Oximetry 2018-07-10 16:10:00 98 % BP Systolic 2018-07-10 16:10:00 157 mm[Hg] BP Diastolic 2018-07-10 16:10:00 82 mm[Hg] Height 2018-06-06 16:05:00 67 [in_i] Heart Rate 2018-06-06 16:05:00 72 /min Respiratory Rate 2018-06-06 16:05:00 16 /min BP Systolic 2018-06-06 16:05:00 126 mm[Hg] BP Diastolic 2018-06-06 16:05:00 84 mm[Hg] Height 2018-05-10 10:30:00 67 [in_i] Heart Rate 2018-05-10 10:30:00 79 /min Respiratory Rate 2018-05-10 10:30:00 17 /min Height 2018-05-02 08:40:00 67 [in_i] Weight Measured 2018-05-02 08:40:00 128 [lb_av] Heart Rate 2018-05-02 08:40:00 84 /min Respiratory Rate 2018-05-02 08:40:00 16 /min BP Systolic 2018-05-02 08:40:00 134 mm[Hg] BP Diastolic 2018-05-02 08:40:00 90 mm[Hg] Height 2018-04-18 10:50:00 67 [in_i] Weight Measured 2018-04-18 10:50:00 128 [lb_av] Heart Rate 2018-04-18 10:50:00 100 /min O2 % BldC Oximetry 2018-04-18 10:50:00 99 % BP Systolic 2018-04-18 10:50:00 141 mm[Hg] BP Diastolic 2018-04-18 10:50:00 101 mm[Hg] Height 2018-04-13 08:20:00 67 [in_i] Weight Measured 2018-04-13 08:20:00 133 [lb_av] Heart Rate 2018-04-13 08:20:00 80 /min O2 % BldC Oximetry 2018-04-13 08:20:00 100 % BP Systolic 2018-04-13 08:20:00 152 mm[Hg] BP Diastolic 2018-04-13 08:20:00 104 mm[Hg]
[2020-09-10 18:14] LABS: APPEARANCE,URINE SLIGHTLY-CLOUDY; BILIRUBIN,URINE NEGATIVE (NEGATIVE); COLOR,URINE YELLOW; GLUCOSE, URINE NEGATIVE (NEGATIVE); KETONES,URINE NEGATIVE (NEGATIVE); LEUKOCYTE ESTERASE,URINE SMALL (NEGATIVE); NITRITE,URINE NEGATIVE (NEGATIVE); PROTEIN,URINE NEGATIVE (NEGATIVE); URINE SPECIFIC GRAVITY 1.023; UROBILINOGEN,URINE NEGATIVE mg/dL (<2.0)
[2020-09-10 19:32] LABS: ABSOLUTE EOSINOPHILS # (AUTO) 0.5 10^3/uL (0.0-0.6); ABSOLUTE LYMPHOCYTES (AUTO) 2.2 10^3/uL (0.5-4.7); ABSOLUTE MONOCYTES (AUTO) 0.3 10^3/uL (0.1-1.4); ABSOLUTE NEUT (AUTO) 2.9 10^3/uL (1.7-8.2); BASOPHILS % (AUTO) 0.3 % (0-2); EOSINOPHILS % (AUTO) 7.9 % (0-6); HEMATOCRIT 36.5 % (36.0-47.0); HEMOGLOBIN 12.2 g/dL (12.0-15.5); LYMPHOCYTES % (AUTO) 37.2 % (13-45); MEAN CORPUSCULAR HEMOGLOBIN 28.5 pg (27.0-33.4); MEAN CORPUSCULAR HGB CONC 33.4 g/dL (32.0-36.0); MEAN CORPUSCULAR VOLUME 85 fl (80-97); MONOCYTES % (AUTO) 4.7 % (3-13); PLATELET COUNT 187 10^3/uL (150-450); RED BLOOD COUNT 4.28 10^6/uL (3.72-5.28); RED CELL DISTRIBUTION WIDTH 13.7 % (11.5-14.0); SEGMENTED NEUTROPHILS % (AUTO) 49.9 % (42-78); TOTAL CELLS COUNTED % (AUTO) 100 %; WHITE BLOOD COUNT 5.9 10^3/uL (4.0-10.5)
[2020-09-10 19:53] LABS: ALBUMIN 5.3 g/dL (3.5-5.0); ALKALINE PHOSPHATASE 109 U/L (38-126); ANION GAP 13 (5-19); ASPARTATE AMINO TRANSFERASE 43 U/L (14-36); BILIRUBIN,DIRECT 0.3 mg/dL (0.0-0.4); BLOOD UREA NITROGEN 13 mg/dL (7-20); CALCIUM 10.4 mg/dL (8.4-10.2); CARBON DIOXIDE 23 mmol/L (22-30); CHLORIDE 104 mmol/L (98-107); GLUCOSE 89 mg/dL (75-110); POTASSIUM 4.3 mmol/L (3.6-5.0); TOTAL PROTEIN 9.3 g/dL (6.3-8.2)
== END 2020-09-10 20:43 | disposition left against medical advice (07) ==
LOC: ER 16:18
DX: R10.31 Right lower quadrant pain (principal); I10 Essential (primary) hypertension; Z88.6 Allergy status to analgesic agent
CPT/HCPCS: 99281; 96372; 96360; 36415; 83690; 85025; 81025; 80053; 81001; J2550; J7030